=== PATIENT | female | born 1990 | race Caucasian/White ===

== ENCOUNTER 2021-11-18 13:51 | Outpatient (CLI) | payer BC, SELFPAY ==
[2021-11-18 14:13] LABS: Influenza Type A Negative (Negative)
[2021-11-18 14:14] LABS: Influenza Type B Negative (Negative)
== END 2021-11-18 13:52 | disposition home or self-care (01) ==
LOC: LONREF 13:53
PROVIDERS: PCP Family Medicine; Visit Provider Nurse Practitioner Family
DX: R05.9 Cough, unspecified (principal); R50.9 Fever, unspecified; R03.0 Elevated blood-pressure reading, without diagnosis of hypertension
CPT/HCPCS: 87804

== ENCOUNTER 2021-11-18 15:23 | Emergency (ER) | payer BC, SELFPAY ==
[2021-11-18 15:37] VITALS: BP 132/78; PULSE 92; TEMP 36.8; O2SAT 97; BMI 34.6
[2021-11-18 15:45] VITALS: BP 121/79; PULSE 98; O2SAT 98
--- NOTE | 2021-11-18 15:46 | ED.GENADULT ---
HPI - General Adult General Time Seen by Provider: 15:46 Date Seen: 11/18/21 Chief complaint: High Blood Pressure Stated complaint: High BP, 17 wks Time Seen by Provider: 11/18/21 15:28 Source: patient, RN notes reviewed, old records reviewed and other ( Spoke with provider in clinic) Mode of arrival: ambulatory Limitations: no limitations History of Present Illness HPI narrative: patient is a 31-year-old female coming [facility] after being evaluated for cough and finding her blood pressure was elevated and she is currently . Patient is reportedly about 17 weeks with her 3rd . She had preeclampsia with her 1st and has ended up on aspirin during her last as well as this . She has seen her OB Gyne providers. She had COVID in February of 2021 and August of this year. She became ill 3 days ago with nasal congestion but runny nose, headache, cough, low-grade fevers up to 100.3? F, sore throat. She had an episode of vomiting last night and has had some nausea today. No neurologic changes with any of these symptoms. She has had 3- COVID tests at home. She does have exercise-induced asthma and states she did end up using her inhaler with prior COVID illnesses. She has not felt like she has needed it with this illness. She is not aware of any definite ill contacts. She has had no travel. She really wants to know if the baby's heart tones are there. She states the provider in [place] was unable to do this. Patient had a cousin have a stillbirth at 17 weeks. She really has not felt quickening yet. She is had no abnormal vaginal discharge or bleeding. She is having no abdominal pain. Onset (ago): day(s) Related Data Home Medications Medication Instructions Recorded Confirmed PNV no.151-iron 27 mg-folic 800 cap PO 10/29/21 11/18/21 mcg-omega3 260 lq-cvd-ugi-fish capsule ( Multi-DHA (with vitamin K)) albuterol sulfate 90 mcg/actuation 2 inhalation PRN 10/29/21 11/18/21 aerosol inhaler aspirin 81 mg chewable tablet 1 tab PO DAILY 10/29/21 11/18/21 cholecalciferol (vitamin D3) 25 25 mcg PO QDAY 10/29/21 11/18/21 mcg (1,000 unit) capsule fluticasone propionate 50 1 intranasal PRN 10/29/21 11/18/21 mcg/actuation nasal spray,suspension Allergies Allergy/AdvReac Type Severity Reaction Status Date / Time polymyxin B Allergy Severe Swelling Verified 10/29/21 14:00 trimethoprim Allergy Severe Swelling Verified 10/29/21 14:00 Sulfa Antibiotics Allergy Unknown Swelling Uncoded 10/29/21 14:00 Review of Systems Status of ROS: Reports: 10 or more systems reviewed and unremarkable except as noted in History and below [facility] Medical History Anxiety Excessive weight gain during High risk , antepartum History of polycystic ovarian syndrome History of pre-eclampsia in prior , currently History of delivery, currently Infection due to severe acute respiratory syndrome coronavirus 2 (SARS-CoV-2) (02/2020) Surgical History History of colonoscopy History of colposcopy (2018) History of esophagogastroduodenoscopy (EGD) History of knee surgery (2015) History of laser assisted in situ keratomileusis (2008) History of left knee surgery History of third molar tooth extraction (2007) Status post delivery (2015) Family History Aunt Breast cancer Depression Other Kidney disease Prostate cancer Social History Narrative: , works in [employer], 2 kids Exercises 3/week (walk/run) Non-smoker- quiet 2016, hx of 8 years on and off smoking Social drinker (1/week) Smoking Status: Never smoker Exam Const: Vital Signs, click to edit/add: Vital Signs - 24 hr 11/18/21 15:37 11/18/21 15:45 Temperature 98.2 F Pulse Rate [Right Pulse Oximeter] 92 98 Blood Pressure [Le ft Upper Arm] 132/78 121/79 Pulse Oximetry 97 98 Oxygen Delivery Me thod Room Air Room Air Documenting provider has reviewed patient's vital signs: yes Common normals: no apparent distress, average body habitus, oriented x3, no limitations, healthy appearing, alert and well nourished General appearance: cooperative, comfortable and well kempt HENMT: Common normals: normocephalic, head/scalp atraumatic, hearing grossly normal bilaterally and external ears normal Head and scalp: normocephalic and atraumatic External ear: external ears normal Eye: Common normals: PERRL, EOMs intact bilaterally, conjunctivae normal and no scleral icterus Conjunctiva: conjunctiva(e) normal Pupil: PERRL Neck & C-Spine: Common normals: full ROM, no lymphadenopathy, supple, no meningeal signs, no JVD and thyroid normal Thyroid: thyroid normal Resp: Common normals: normal respiratory effort, no retractions, no use of accessory muscles and clear to auscultation bilaterally Auscultation: clear to auscultation bilaterally Cardio: Common normals: no JVD, regular rate, regular rhythm, S1 normal heart sound, S2 normal heart sound, no gallops, no clicks, no murmurs and no rub Rate: regular rate Rhythm: regular rhythm Heart sounds: S1 normal and S2 normal GI: Other: Abdomen is gravid but nontender. No masses palpated. No rebound or guarding anywhere. Extremity: Common normals: normal to inspection, full ROM, normal capillary refill, no joint enlargement, no clubbing, cyanosis or edema, no calf tenderness and no pedal edema Neuro: Common normals: oriented x3 Sensorium/orientation: alert Meningeal signs: no meningeal signs Psych: Appearance: well kempt Course Course Hospital Course: Will monitor patient here on pulse oximetry. She is currently not hypoxic. We have collected a COVID PCR. This is a likely an alternate respiratory virus but will rule out COVID. Her lungs are perfectly clear right now. Her blood pressure was elevated in clinic at 155/115. On arrival here was 132/78, then subsequently 121/79. Her most recent systolic after resting was 111. I have ordered labs including CBC in C reactive protein. Also have placed a comprehensive metabolic panel. She is under 20 weeks thus this could not be preeclampsia but could be chronic hypertension. Patient is already on aspirin. Will talk to OB regarding her. Reevaluation(s) Reevaluation #1: Patient has remained stable, no hypoxia. COVID is negative, labs look reassuring that this is not a significant bacterial infection. Likewise clinically her lungs are clear. I do not believe she needs imaging at this time. We have discussed my sense that this is viral at this point. She has no further questions and is comfortable going home. Did let patient know that I spoke briefly with Dr. Ludwig regarding this situation. She is not concerned about blood pressures at this point but patient should follow. Time: 17:07 Vital Signs Vital signs: Initial Vital Signs Temperature 98.2 F 11/18/21 15:37 Temperature Source Temporal Artery Scan 11/18/21 15:37 Pulse Rate 92 11/18/21 15:37 Blood Pressure 132/78 11/18/21 15:37 Blood Pressure Mean 96 11/18/21 15:37 Blood Pressure Position Supine 11/18/21 15:37 Pulse Oximetry 97 11/18/21 15:37 Oxygen Delivery Method 11/18/21 15:37 Vital Signs Temperature 98.2 F 11/18/21 15:37 Pulse Rate 92 11/18/21 15:37 Blood Pressure 132/78 11/18/21 15:37 Pulse Oximetry 97 11/18/21 15:37 Oxygen Delivery Method 11/18/21 15:37 Temperature 98.2 F 11/18/21 15:37 Pulse Rate 98 11/18/21 15:45 Blood Pressure 121/79 11/18/21 15:45 Pulse Oximetry 98 11/18/21 15:45 Oxygen Delivery Method 11/18/21 15:45 Medical Decision Making Lab Data Lab results reviewed: Yes I reviewed the patient's lab results Labs: Lab Results 11/18/21 11/18/21 11/18/21 Range/Units 15:39 16:14 16:14 WBC 9.91 (4.50-11.00) K/uL RBC 3.82 L (4.00-5.20) m/uL Hgb 11.7 L (12.0-16.0) gm/dL Hct 34.6 (33.0-51.0) % MCV 91 (80-100) fL MCH 31 (26-34) pg MCHC 34 (32-36) gm/dL RDW Coeff of Pool 12.7 (11.5-15.5) % Plt Count 202 (140-440) K/uL Neut % (Auto) 76.7 H (42.0-72.0) % Lymph % (Auto) 14.5 L (20-44) % [place] % (Auto) 7.0 (0.0-11.0) % Eos % (Auto) 1.4 (0.0-7.0) % Baso % (Auto) 0.2 (0.0-3.0) % Neut # (Auto) 7.60 H (1.7-7.0) K/uL Lymph # (Auto) 1.40 (0.90-2.90) K/uL [place] # (Auto) 0.70 (0.00-0.90) K/UL Eos # (Auto) 0.14 (0.00-0.50) K/uL Baso # (Auto) 0.02 (0.00-0.30) K/uL Abs Immat Gran (auto) 0.02 (0.00-0.30) K/uL Sodium 135 (135-149) mmol/L Potassium 3.9 (3.6-5.1) mmol/L Chloride 107 (96-114) mmol/L Carbon Dioxide 21 (20-32) mmol/L BUN 7 (5-24) mg/dL Creatinine 0.4 L (0.5-1.5) mg/dL Estimated Creat Clear 181.69 Estimated GFR 135 ml/min Glucose 97 (60-115) mg/dL Calcium 8.8 (8.4-10.6) mg/dL Total Bilirubin 0.3 (0.1-1.5) mg/dL AST 18 (12-35) U/L ALT 13 (4-35) U/L Alkaline Phosphatase 53 (40-150) U/L C-Reactive Protein 4.5 H (0.5-1.0) mg/dL Total Protein 7.1 (6.0-8.3) g/dL Albumin 3.9 (3.3-5.0) g/dL SARS-CoV-2 (PCR) Negative SARS-CoV-2 (Negative) Critical Care Time Critical Care Time Critical Care Time: No Discharge Plan Discharge Clinical Impression: Elevated blood pressure reading, , Upper respiratory infection, viral Patient Disposition: Home, Self-Care Condition: Stable Instructions: Upper Respiratory Infection (ED) Additional Instructions: recommend reviewing your packet from the community service specialist to see which cough and cold medicines they recommend. If you have further questions regarding what you can use, can contact OB on-call or call the OB clinic tomorrow to get direction from them. Stay hydrated with drinking plenty of fluids. Can use some Tylenol if needed for any discomfort or low-grade fevers. I have written for a Z-Willian to be taken if you feel your respiratory symptoms are worsening, fever pattern is worsening or if you are not improving over the next week. Please be aware that we always recommend you seek re-evaluation if you are worsening or have concerns about your status. At this time it is likely that this is viral and antibiotics will not help. You certainly can try your albuterol inhaler if you feel like you are coughing or wheezing to see if it does help. Do recommend recheck with your OB in 1-2 weeks, make sure you are clinically improving from this respiratory infection. Can monitor blood pressures at home if you still have a cuff to see if they are starting to elevate more. Activity Level: Activity as Tolerated Discharge Diet: Regular Prescriptions: No Action aspirin 81 mg tablet,chewable 1 tab PO DAILY Multi-DHA(with vit K) 27 mg iron-800 mcg-260 mg capsule PO albuterol sulfate 90 mcg/actuation HFA aerosol inhaler 2 inhalation PRN fluticasone propionate 50 mcg/actuation spray,suspension 1 intranasal PRN cholecalciferol (vitamin D3) 25 mcg (1,000 unit) capsule 25 mcg PO QDAY Follow Up/Referrals: Pedro Boudreaux MD [Primary Care Provider] - Stand Alone Forms: [employer] Info Instructions
[2021-11-18 16:21] LABS: Basophils Absolute Auto 0.02 K/uL (0.00-0.30); Basophils Percent Auto 0.2 % (0.0-3.0); Eosinophils Absolute Auto 0.14 K/uL (0.00-0.50); Eosinophils Percent Auto 1.4 % (0.0-7.0); Hematocrit 34.6 % (33.0-51.0); Hemoglobin* 11.7 gm/dL (12.0-16.0); Immature Granulocytes Abs Auto 0.02 K/uL (0.00-0.30); Lymphocytes Percent Auto 14.5 % (20-44); Mean Corpuscular HGB Conc 34 gm/dL (32-36); Mean Corpuscular Hemoglobin 31 pg (26-34); Mean Corpuscular Volume 91 fL (80-100); Neutrophils Percent Auto 76.7 % (42.0-72.0); Platelet Count* 202 K/uL (140-440); RDW Coefficient of Variation % 12.7 % (11.5-15.5); Red Blood Count 3.82 m/uL (4.00-5.20); White Blood Count* 9.91 K/uL (4.50-11.00)
[2021-11-18 16:40] LABS: Albumin* 3.9 g/dL (3.3-5.0); Chloride* 107 mmol/L (96-114); Sodium* 135 mmol/L (135-149)
[2021-11-18 16:41] LABS: Potassium* 3.9 mmol/L (3.6-5.1)
[2021-11-18 16:43] LABS: Alanine Aminotransferase* 13 U/L (4-35); Alkaline Phosphatase* 53 U/L (40-150); Aspartate Amino Transferase* 18 U/L (12-35); Bilirubin Total* 0.3 mg/dL (0.1-1.5); Blood Urea Nitrogen* 7 mg/dL (5-24); Carbon Dioxide* 21 mmol/L (20-32); Creatinine* 0.4 mg/dL (0.5-1.5); Est. Creatinine Clearance* 181.69; Estimated Glomerular Filt Rate 135 ml/min; Total Protein* 7.1 g/dL (6.0-8.3)
[2021-11-18 16:44] LABS: Calcium* 8.8 mg/dL (8.4-10.6); Glucose* 97 mg/dL (60-115)
[2021-11-18 16:45] LABS: Slide Review Reflex No
[2021-11-18 16:46] LABS: C Reactive Protein* 4.5 mg/dL (0.5-1.0)
[2021-11-18 16:52] LABS: SARS PCR* Negative SARS-CoV-2 (Negative)
[2021-11-18 17:17] VITALS: BP 110/73; PULSE 90
== END 2021-11-18 17:19 | disposition home or self-care (01) ==
PROVIDERS: Emergency Provider Family Medicine; PCP Family Medicine
DX: R03.0 Elevated blood-pressure reading, without diagnosis of hypertension (principal); J06.9 Acute upper respiratory infection, unspecified; Z3A.17 17 weeks gestation of pregnancy
CPT/HCPCS: 36415; 80053; 85025; 86140; 87635; 99283; 99284

== ENCOUNTER 2021-12-08 12:21 | Outpatient (CLI) | payer BC, SELFPAY | END 2021-12-08 12:22 | disposition home or self-care (01) | LOC: US 12:21 | PROVIDERS: PCP Family Medicine; Visit Provider Pediatrics Neonatal-Perinatal Medicine | DX: O98.512 Other viral diseases complicating pregnancy, second trimester (principal); U07.1 COVID-19; Z3A.21 21 weeks gestation of pregnancy | CPT/HCPCS: 76811 ==

== ENCOUNTER 2022-01-07 17:54 | Outpatient (CLI) | payer BC, SELFPAY ==
[2022-01-07] VITALS (7 sets, daily range): BP systolic 116; BP diastolic 67; PULSE 70–75; RESP 16; TEMP 36.6; O2SAT 98–100
--- NOTE | 2022-01-07 19:17 | PC.OBNST ---
NST Note NST Note Start: 01/07/22 17:59 Freq: ONCE Status: Active Protocol: Document 01/07/22 19:15 BRIDGET (Rec: 01/07/22 19:16 JRIram [id number]) NST Note 3 Para (# of births) 2 EDC 04/27/22 Gestational Age In Weeks & Days 24 Weeks & 2 Days Patient Presented with Complaint(s) of Vaginal bleeding Reactive No Appropriate for Gestational Age Yes RN Brittanie Reid RN Date 01/07/22 Reactive No Appropriate for Gestational Age Yes CASTRO Tena RNC Date 01/07/22 OB NST charge Yes Complete NST Note via Write Note Yes The provider's electronic signature indicates the NST is reactive/appropriate for gestational age. *Note to provider: If an addendum is required, open the patient's chart and click on the note under the Nurse/Allied Health tab.
== END 2022-01-07 18:55 | disposition home or self-care (01) ==
LOC: OB OUT 17:55 → OB 17:56
PROVIDERS: PCP Family Medicine; Visit Provider Obstetrics & Gynecology
DX: Z34.92 Encounter for supervision of normal pregnancy, unspecified, second trimester (principal); Z3A.24 24 weeks gestation of pregnancy
CPT/HCPCS: 59025; 99213

== ENCOUNTER 2022-01-17 07:40 | Outpatient (CLI) | payer BC, SELFPAY ==
--- NOTE | 2022-01-17 08:15 | CRLHL7_ITS ---
For Patients: As a result of the Cures Act, medical imaging exams and procedure reports are released immediately into your electronic medical record. You may view this report before your referring provider. If you have questions, please contact your health care provider. RIGHT BREAST ULTRASOUND CLINICAL HISTORY: This is a 31-year-old who is 26 weeks with discomfort in RIGHT lateral breast. TECHNIQUE: RIGHT breast ultrasound was performed. COMPARISON FILM: No comparison. FINDINGS: Ultrasound over the RIGHT lateral breast 6-12 o???clock position demonstrates no abnormality. IMPRESSION: Negative RIGHT breast ultrasound. Further management should be based clinically. Recommend start of yearly screening mammography at age 40. ASSESSMENT: BI-RADS Category 2: Benign BI-RADS Category 2: Benign The results and recommendations were discussed with the patient. Joellen Jackson M.D. Diagnostic/Breast Radiologist [email or web address] PT/Dictated by: Joellen Jackson MD @ 01/17/2022 9:42:00 AM (Electronically Signed)
== END 2022-01-17 07:41 | disposition home or self-care (01) ==
LOC: US 07:41
PROVIDERS: PCP Family Medicine; Visit Provider Obstetrics & Gynecology
DX: N64.4 Mastodynia (principal)
CPT/HCPCS: 76642

== ENCOUNTER 2022-02-04 09:30 | Outpatient (CLI) | payer BC, SELFPAY ==
[2022-02-05 20:38] LABS: Rapid Plasma Reagin (RPR) Non Reactive (Non Reactive)
== END 2022-02-04 09:31 | disposition home or self-care (01) ==
PROVIDERS: PCP Family Medicine; Visit Provider Obstetrics & Gynecology
DX: Z34.80 Encounter for supervision of other normal pregnancy, unspecified trimester (principal)
CPT/HCPCS: 86592

== ENCOUNTER 2022-02-17 07:24 | Outpatient (CLI) | payer BC, SELFPAY ==
[2022-02-17 07:49] VITALS: BP 110/64; PULSE 77
--- NOTE | 2022-02-17 08:33 | PC.OBNST ---
NST Note NST Note Start: 02/17/22 07:28 Freq: ONCE Status: Active Protocol: Document 02/17/22 08:28 [facility] (Rec: 02/17/22 08:33 [facility] [id number]) NST Note 3 Para (# of births) 2 EDC 04/27/22 Gestational Age In Weeks & Days 30 Weeks & 1 Days High Risk Factors History of Labor/ Delivery Patient Presented with Complaint(s) of Contractions/cramping,Vaginal bleeding,Nausea and vomiting Other Complaints No vaginal bleeding noted during patient visit to Center. See OB assessment for more information. Reactive Yes Appropriate for Gestational Age Yes CASTRO Morales RN Date 02/17/22 Reactive Yes Appropriate for Gestational Age Yes ASHOK Evans Date 02/17/22 OB NST charge Yes Complete NST Note via Write Note Yes The provider's electronic signature indicates the NST is reactive/appropriate for gestational age. *Note to provider: If an addendum is required, open the patient's chart and click on the note under the Nurse/Allied Health tab.
== END 2022-02-17 08:14 | disposition home or self-care (01) ==
LOC: OB OUT 07:24 → OB 07:25
PROVIDERS: PCP Family Medicine; Visit Provider Obstetrics & Gynecology
DX: Z34.93 Encounter for supervision of normal pregnancy, unspecified, third trimester (principal); Z3A.30 30 weeks gestation of pregnancy
CPT/HCPCS: 59025; 99213

== ENCOUNTER 2022-03-04 09:42 | Outpatient (CLI) | payer BC, SELFPAY ==
--- NOTE | 2022-03-04 10:15 | CRLHL7_ITS ---
For Patients: As a result of the Century Cures Act, medical imaging exams and procedure reports are released immediately into your electronic medical record. You may view this report before your referring provider. If you have questions, please contact your health care provider. INDICATION: Third trimester scan, evaluate growth. SIZE GREATER THAN DATES COMPARISON: 12/08/2021 TECHNIQUE: Real time waddell scale imaging of the fetus was performed. FINDINGS: Sonographic imaging demonstrates a single living intrauterine gestation. Fetus demonstrates a regular cardiac rate of 157 beats per minute. Fetus has a transverse position, head maternal left. The placenta lies anteriorly. Amniotic fluid volume appears normal and there is a single deepest vertical pocket: 7.6 cm. WILFRED 21.9 cm. The estimated weight is 2621gm which lies at the greater than 97th %. On the prior OB ultrasound exam dated 12/08/2021 the estimated weight was at the greater than 97th%. BPD, HC, AC greater than 97th percentile. FL 67th percentile. The HC/AC ratio measures 1.07 range (0.93-1.09). IMPRESSION: Sonographic gestational age 35 weeks 5 days and sonographic due date 04/03/2022. Sonographic age is 24 days ahead of the clinical age. Estimated weight greater than 97th percentile. BPD/HC/AC greater than 97th percentile. Dictated by Francesco Mcnamara MD @ 03/04/2022 11:04:16 AM (Electronically Signed)
== END 2022-03-04 09:43 | disposition home or self-care (01) ==
PROVIDERS: PCP Family Medicine; Visit Provider Physician Assistant
DX: O36.63X0 Maternal care for excessive fetal growth, third trimester, not applicable or unspecified (principal); Z3A.35 35 weeks gestation of pregnancy
CPT/HCPCS: 76816

== ENCOUNTER 2022-03-21 18:00 | Outpatient (CLI) | payer BC, SELFPAY ==
[2022-03-21] VITALS (9 sets, daily range): BP systolic 108–119; BP diastolic 55–66; PULSE 70–81
[2022-03-21] MEDS: diphenhydrAMINE 25 MG CAPSULE PO (19:23)
[2022-03-21 19:27] LABS: Hematocrit 31.2 % (33.0-51.0); Hemoglobin* 10.5 gm/dL (12.0-16.0); Mean Corpuscular HGB Conc 34 gm/dL (32-36); Mean Corpuscular Hemoglobin 30 pg (26-34); Mean Corpuscular Volume 90 fL (80-100); Platelet Count* 192 K/uL (140-440); Red Blood Count 3.47 m/uL (4.00-5.20); White Blood Count* 9.39 K/uL (4.50-11.00)
[2022-03-21 19:40] LABS: Slide Review Reflex No
[2022-03-21 19:48] LABS: Aspartate Amino Transferase* 18 U/L (12-35); Creatinine* 0.4 mg/dL (0.5-1.5); Estimated Glomerular Filt Rate 135 ml/min
[2022-03-21 19:48] LABS: Total Protein Urine 13 mg/dL
[2022-03-21 19:49] LABS: Alanine Aminotransferase* 14 U/L (4-35); Blood Urea Nitrogen* 8 mg/dL (5-24)
[2022-03-21 19:49] LABS: Creatinine Urine 20.6 mg/dL
[2022-03-21] MEDS: METOCLOPRAMIDE 10 MG TABLET PO (21:00)
--- NOTE | 2022-03-21 21:39 | PC.OBNST ---
NST Note NST Note Start: 03/21/22 18:17 Freq: ONCE Status: Active Protocol: Document 03/21/22 21:05 JA (Rec: 03/21/22 21:36 JA [id number]) NST Note 3 Para (# of births) 2 EDC 04/27/22 Gestational Age In Weeks & Days 34 Weeks & 5 Days Patient Presented with Complaint(s) of Headache,Other Other Complaints Pt has hx of severe pre-e, reports elevated BP's at home. Reactive Yes Appropriate for Gestational Age Yes RN Fer Ferguson RN Date 03/21/22 Reactive Yes Appropriate for Gestational Age Yes CASTRO Rojas RN Date 03/21/22 OB NST charge Yes Complete NST Note via Write Note Yes The provider's electronic signature indicates the NST is reactive/appropriate for gestational age. *Note to provider: If an addendum is required, open the patient's chart and click on the note under the Nurse/Allied Health tab.
--- NOTE | 2022-03-22 07:55 | ED.NURSE ---
Called OB to check if patient needed her instamed prescription. Per OB nurse, Josie, Patient declined this medication. Called [facility] and they cancelled prescription.
== END 2022-03-21 21:05 | disposition home or self-care (01) ==
LOC: OB OUT 18:00 → OB 18:16
PROVIDERS: PCP Family Medicine; Visit Provider Obstetrics & Gynecology
DX: O26.893 Other specified pregnancy related conditions, third trimester (principal); R51.9 Headache, unspecified; Z3A.34 34 weeks gestation of pregnancy
CPT/HCPCS: 36415; 59025; 82565; 82570; 84156; 84450; 84460; 84520; 85027; 99213; A9270

== ENCOUNTER 2022-04-01 10:22 | Outpatient (CLI) | payer BC, SELFPAY ==
[2022-04-02 15:47] LABS: Strep B DNA Probe NEGATIVE (Negative)
[2022-04-03 06:46] LABS: Strep B Pen/Amox Allergy No
== END 2022-04-01 10:23 | disposition home or self-care (01) ==
LOC: NFLDREF 10:22
PROVIDERS: PCP Family Medicine; Visit Provider Obstetrics & Gynecology
DX: Z34.93 Encounter for supervision of normal pregnancy, unspecified, third trimester (principal); Z3A.38 38 weeks gestation of pregnancy
CPT/HCPCS: 76816; 87081; 87653

== ENCOUNTER 2022-04-14 18:44 | Inpatient (IN) | payer BC, SELFPAY ==
[2022-04-14] VITALS (12 sets, daily range): BP systolic 122–128; BP diastolic 71–75; PULSE 73–87; RESP 16–18; TEMP 36.5–37.3; O2SAT 100; BMI 39.6
[2022-04-14] MEDS: LACTATED RINGERS 1000 ML 1,000 ML 125 ML IV (18:30)
[2022-04-14] MEDS: OXYTOCIN 30 unit/500 ML in NS 30 UNIT/500 ML BAG IVPB (18:40)
[2022-04-14 18:42] LABS: SARS PCR* Negative SARS-CoV-2 (Negative)
[2022-04-14 19:00] LABS: Basophils Percent Auto 0.1 % (0.0-3.0); Eosinophils Percent Auto 0.5 % (0.0-7.0); Hemoglobin* 11.2 gm/dL (12.0-16.0); Immature Granulocytes Pct Auto 0.3 %; Lymphocytes Percent Auto 18.5 % (20-44); Mean Corpuscular HGB Conc 34 gm/dL (32-36); Mean Corpuscular Hemoglobin 31 pg (26-34); Mean Corpuscular Volume 90 fL (80-100); Monocytes Percent Auto 6.5 % (0.0-11.0); Neutrophils Percent Auto 74.1 % (42.0-72.0); Platelet Count* 222 K/uL (140-440); RDW Coefficient of Variation % 14.4 % (11.5-15.5); Red Blood Count 3.65 m/uL (4.00-5.20); Slide Review Reflex No; White Blood Count* 11.04 K/uL (4.50-11.00)
--- NOTE | 2022-04-14 21:10 | P.LDBA_ITS ---
Subjective History of Present Illness Narrative: Patient is being admitted to Labor and Delivery for VTOLAC. She is a 31 year old at 38 1/7 weeks gestation. Her full history and physical was dictated by Dr. TAYLOR on 04/08/22. Please see this for details. Patient called in this afternoon with concerns of watery like discharge. Upon arrival there was evidence of rupture of membranes with a large amount of clear watery like discharge in a towel that was soaked. Specific Issues/Plans blood type:?O positive Partner: Ish. Sons: Cristian. Flaco (preemie). Baby: [place] gender. [id number] 1. Anxiety/Depression, Severe pp mood depression w/ 2nd * SSRI's in the past without success * 2. Significant alcohol intake until finding out she was 3. COVID + in early * level 2 US:? Normal 4. Hx of Severe Pre-E w/ first * Already taking baby aspirin * Baseline labs collected:? normal 5. Hx of w/ 2nd Baby for arrest of descent, OP presentataion.? 9 lbs 7 oz.? * ?Low transverse hysterotomy incision with 2-layer closure documented, Dr. Oden * Desires * Consent: signed 03/18/22 * Growth US @36 weeks (04/01/22):?EFW 91%,?BPD 93%, HC 87%, AC >97%, FL 49% 6. History of macrosomia, 2nd baby 9 lb 7 oz 7. Size>date 03/04/22: * SDP 7.6 cm. WILFRED 21.9 cm.?EFW >97%, 2621gm 8.? Unremitting QUIROGA on 03/21/22.? Seen on Center.? Normotensive, normal HELLP labs, but elevated protein:creatinine at 0.6.? Treated with Reglan.? 9.? Anemia, with Hb 10.5 on 03/21/22.? Begin ferrous sulfate 325 BID.? OB - H&P: Exam Physical Exam: Vital signs: Temp Pulse Resp BP Pulse Ox 98 F 79 16 122/75 100 04/14/22 20:30 04/14/22 19:24 04/14/22 20:30 04/14/22 19:24 04/14/22 18:16 Narrative: Cervical check as per nursincm/50%/-2 NST:130bpm/positive accelerations/negative decelerations/moderate variability/irregular uterine contractions OB - Problem Based A/P Additional Plan (1) : Status: Acute Plan VTOLAC presents after SROM. Latent phase of labor. 1. Continuos monitoring. 2. Augmentation recommended start low dose oxytocin. 3. GBS negative no need for antibiotic prophylaxis 4. Pain management as needed. 5. Type and screen. 6. AC> 97% would not utilize vacuum in the event of prolonged second stage of labor.
[2022-04-14] MEDS: LACTATED RINGERS 1000 ML 1,000 ML IV (23:36)
[2022-04-14] MEDS: LIDOCAINE 2% (PF) 5 ML VIAL EPIDURAL (23:55)
[2022-04-15] VITALS (55 sets, daily range): BP systolic 101–154; BP diastolic 54–93; PULSE 70–123; RESP 16–20; TEMP 36.4–37.4; O2SAT 97–100
[2022-04-15] MEDS: ROPIVACAINE 0.2 % PF 10 ML INJ 20 MG EPIDURAL (00:01)
[2022-04-15] MEDS: ROPIVACAINE 0.2% 100 ml 100 ML 12 MG EPIDURAL (00:03)
--- NOTE | 2022-04-15 00:08 | PM.ANBPRC ---
[facility] Medical History (Updated 04/04/22 @ 11:53 by Pedro Boudreaux MD) High risk , antepartum History of polycystic ovarian syndrome History of pre-eclampsia in prior , currently History of delivery, currently Infection due to severe acute respiratory syndrome coronavirus 2 (SARS-CoV-2) (02/2020) Vaginal bleeding affecting early Surgical History (Updated 03/18/22 @ 16:34 by Christina Ludwig MD) History of colonoscopy History of colposcopy (2018) History of esophagogastroduodenoscopy (EGD) History of knee surgery (2016) History of laser assisted in situ keratomileusis (2008) History of left knee surgery History of third molar tooth extraction (2007) Status post delivery (2015) Family History Aunt Breast cancer Depression Other Kidney disease Prostate cancer Social History Narrative: , works in [employer] [place], 2 kids Exercises 3/week (walk/run) Non-smoker- quiet 2015, hx of 8 years on and off smoking Social drinker (1/week) Smoking Status: Former smoker Meds Home Medications and Allergies Home Medications Medication Instructions Recorded Confirmed Type PNV no.151-iron 27 mg-folic 800 cap PO 10/29/21 04/08/22 History mcg-omega3 260 ul-fjn-qbl-fish capsule ( Multi-DHA (with vitamin K)) albuterol sulfate 90 mcg/actuation 2 inhalation PRN 10/29/21 04/08/22 History aerosol inhaler cholecalciferol (vitamin D3) 25 25 mcg PO QDAY 10/29/21 04/13/22 History mcg (1,000 unit) capsule acetaminophen 500 mg tablet mg PRN 03/21/22 04/08/22 History Allergies Allergy/AdvReac Type Severity Reaction Status Date / Time polymyxin B Allergy Severe Swelling Verified 04/08/22 09:40 trimethoprim Allergy Severe Swelling Verified 04/08/22 09:40 Sulfa Antibiotics Allergy Unknown Swelling Uncoded 04/08/22 09:40 Results Labs Labs: Laboratory Results - last 24 hr 04/14/22 04/14/22 04/14/22 17:43 18:32 18:32 WBC 11.04 H RBC 3.65 L Hgb 11.2 L Hct 33.0 MCV 90 MCH 31 MCHC 34 RDW Coeff of Pool 14.4 Plt Count 222 Neut % (Auto) 74.1 H Lymph % (Auto) 18.5 L [place] % (Auto) 6.5 Eos % (Auto) 0.5 Baso % (Auto) 0.1 Neut # (Auto) 8.20 H Lymph # (Auto) 2.00 [place] # (Auto) 0.70 Eos # (Auto) 0.10 Baso # (Auto) 0.00 SARS-CoV-2 (PCR) Negative SARS-CoV-2 Blood Type O Positive Antibody Screen NEGATIVE Vital Signs Vital Signs: Last Vital Signs Temp 97.8 F 04/14/22 22:37 Pulse 83 04/15/22 00:06 Resp 16 04/14/22 22:37 BP 127/82 04/15/22 00:06 Pulse Ox 100 04/15/22 00:05 Weight: 107.955 kg Height: 165.1 cm Anesthesia Procedures Epidural Insertion Patient Location: OB Start Time: 23:35 Stop Time: 00:09 Start Date: 04/15/22 Stop Date: 04/15/22 Reason for Block: procedure for pain Patient Position: sitting Performed By: Ganga Coleman Preanesthetic Checklist: IV checked, risks and benefits discussed, surgical consent, monitors and equipment checked, pre-op evaluation, timeout performed and anesthesia consent Prep: chlorhexidine gluconate Monitoring: blood pressure monitoring, continuous pulse oximetry and heart rate Approach: midline Vertebral Space: lumbar (1-5) Epidural Technique: CRISS air Needle Type: Tuohy needle Injection Technique: continuous catheter Needle gauge: 17 Needle Length (cm): 10 cm Needle Insertion Depth (cm): 7 Catheter Gauge: 19 Catheter Type: multi-orifice Catheter at skin depth (cm): 13 Test Dose Result: negative and lidocaine 1.5% with epinephrine 1 to 200,000
[2022-04-15] MEDS: ACETAMINOPHEN 500 MG TABLET 1000 MG PO ×3 (03:03→15:46)
[2022-04-15] MEDS: ONDANSETRON 2 MG/ML inj 4 MG IV (03:59)
[2022-04-15] MEDS: LACTATED RINGERS 1000 ML 1,000 ML IV (04:49)
--- NOTE | 2022-04-15 05:18 | PM.OBPNL ---
Subjective Date Seen: 04/15/22 Narrative: I was called in to assess patient, she had been feeling pushy and started to unvoluntarily push. I had checked her at around midnight and found cervix at 4.5/80/-2 station. Internal monitors placed since we were having significant difficulties monitoring heart rate and contractions. She has now progressed to full dilation and position is seen to be OP. NST showing recurrent variable decelerations at this moment, moderate variability and accelerations present. Objective Exam: Cervix: 10cm/100%/0 station/ROP NST: 140bpm/moderate variability/positive accelerations/recurrent variables for the past 10 minutes since she has started pushing/regular and effective uterine contractions Vital Signs: Last Vital Signs Temp 99 F 04/15/22 04:26 Pulse 96 04/15/22 05:07 Resp 16 04/15/22 04:00 BP 101/55 L 04/15/22 05:07 Pulse Ox 99 04/15/22 00:41 Plan Plan: Continue to try position changes and continue pushing. If variable decelerations persist, become deeper or prolonged will have to proceed with delivery fo that indication.
--- NOTE | 2022-04-15 06:12 | PM.OBPRCVD ---
Procedure Delivery date: 04/15/22 Procedure Done: Global Events: Previous and Labor Augmentation Intrapartal Events: Labor Augmentation Induction method: per pitocin protocol Delivery augmentation: pitocin Delivery monitor: internal FHT and internal uterine Route of delivery: Episiotomy description: None Laceration description: Perineal - 2nd Degree Delivery repair: Vicryl Estimated blood loss (mL): 50 Anesthesia type: Epidural Disposition: floor Complications: None Narrative: The patient is a 31 year-old G 3 P 2103 admitted on 04/14/2022 at 38 Weeks, 2 Days gestation for delivery.? Cervical exam on admission was 3 cm/50 % effaced/-2 station with membranes ruptured in vertex presentation.? Contractions were every 5-7 minutes.? heart rate demonstrated baseline 130 bpm with moderate variability, + accelerations, - decelerations; a category 1 tracing.? SROM occurred at 16 40 on 04/14/2022 with clear fluid. ? Labor Analgesia:? Epidural ? Pitocin:? Yes ? Labor onset:? 1200 ? Complete:? 0449 ? Pushing:? 0457 ? heart tones during second stage were category 2. ? At 0551 a viable female infant delivered in vertex LUIS ALBERTO presentation over intact perineum via spontaneous vaginal delivery.? was placed on maternal abdomen.? Cord was clamped and cut after a 30-60 second delay.? Nose and mouth were bulb suctioned.? Infant weight pending.? 8 at 1 minute and 9 at 5 minutes.? Shoulder dystocia: No.? Nuchal cord: No. ? Placenta delivered spontaneously and complete at 0557 with a 3 vessel cord. ? Mother and were stable after delivery. ? Lacerations:? 2nd degree perineal, repaired with Vicryl 3-0. ? Blood loss: 50 mL. Blood loss measurement type: QBL ? Sponge and needles counts are correct. Infant Gender: Female presentation: vertex Placental Delivery Description: Spontaneous Cord Description: 3 Vessels
[2022-04-15 06:53] LABS: Hematocrit 33.1 % (33.0-51.0); Hemoglobin* 11.2 gm/dL (12.0-16.0); Mean Corpuscular HGB Conc 34 gm/dL (32-36); Mean Corpuscular Hemoglobin 31 pg (26-34); Mean Corpuscular Volume 90 fL (80-100); Platelet Count* 183 K/uL (140-440); Red Blood Count 3.67 m/uL (4.00-5.20); White Blood Count* 15.67 K/uL (4.50-11.00)
[2022-04-15 06:58] LABS: Slide Review Reflex No
[2022-04-15] MEDS: IBUPROFEN 600 MG TABLET PO ×3 (06:58→20:02)
[2022-04-15 07:08] LABS: Alanine Aminotransferase* 15 U/L (4-35); Aspartate Amino Transferase* 22 U/L (12-35); Blood Urea Nitrogen* 8 mg/dL (5-24); Creatinine* 0.5 mg/dL (0.5-1.5); Est. Creatinine Clearance* 145.35; Estimated Glomerular Filt Rate 128 ml/min; INR 1.07 (0.91-1.10); Prothrombin Time 14.5 Seconds
[2022-04-15 07:10] LABS: Fibrinogen* 559 mg/dL (200-450)
[2022-04-15] MEDS: DOCUSATE SODIUM 100 MG CAPSULE PO (09:10)
[2022-04-16 00:09] VITALS: BP 124/81; PULSE 73; RESP 16; O2SAT 97
[2022-04-16] MEDS: IBUPROFEN 600 MG TABLET PO ×2 (02:47→09:00)
[2022-04-16 05:20] VITALS: BP 102/65; PULSE 78; RESP 14; TEMP 36.7; O2SAT 97
[2022-04-16] MEDS: ACETAMINOPHEN 500 MG TABLET 1000 MG PO ×2 (06:02)
[2022-04-16 08:05] VITALS: BP 116/78; PULSE 87; RESP 16; TEMP 36.7; O2SAT 97
[2022-04-16] MEDS: DOCUSATE SODIUM 100 MG CAPSULE PO (09:00)
--- NOTE | 2022-04-16 10:24 | P.DS_ITS ---
DS: Providers Provider Date Seen: 04/16/22 Date of admission: 04/14/22 18:44 Primary care physician: Natalia Jhaveri MD Admitting Clinician: Natalia Jhaveri MD Attending Physician on discharge: Natalia Jhaveri MD Date of Discharge: 04/16/22 DS: Diagnosis Discharge Diagnosis (1) Vaginal after section: Status: Acute (2) Gestational hypertension: Status: Acute Exam Narrative: Exam Narrative: VITAL SIGNS: As noted above. GENERAL APPEARANCE: Alert, cooperative female in no acute distress. MOOD & AFFECT: Normal. ABDOMEN: Soft, non-distended and nontender. Uterus well contracted. : Normal lochia. EXTREMITIES: Bilateral pitting edema +1. Well perfused. Nontender. Const: Vital Signs, click to edit/add: Vital Signs - 24 hr 04/15/22 15:46 04/15/22 20:59 04/15/22 23:36 Temperature 98.1 F 97.6 F Pulse Rate [Pulse Oximeter] 87 70 81 Respiratory Rate 16 16 Blood Pressure [Le ft Arm] 113/67 123/81 Pulse Oximetry 97 97 Oxygen Delivery Me thod Room Air Room Air 04/16/22 00:09 04/16/22 05:20 04/16/22 08:05 Temperature 98.0 F 98.0 F Pulse Rate [Pulse Oximeter] 73 78 87 Respiratory Rate 16 14 16 Blood Pressure [Le ft Arm] 124/81 102/65 116/78 Pulse Oximetry 97 97 97 Oxygen Delivery Me thod Room Air Room Air Room Air OB - DS: Summary Hospital Course Hospital Course: The patient is a 31 year old G 3 P 3003 at 383/7 weeks gestation that was admitted to the Center on 04/14/22 for vaginal trial of labor after section. She had an uncomplicated vaginal delivery. She delivered a viable female . She is breast feeding. the patient has done well. Peripartum Data delivery method: Laceration description: Perineal - 2nd Degree Episiotomy description: None complications: none [place] Gender: Female Status at Discharge Functional status at discharge: independent ambulation Overall status at discharge: patient is progressing back to baseline Time Spent with Patient Time attestation: Total time spent providing and/or coordinating discharge services: Time spent: Less than 30 minutes Discharge Plan Discharge Disposition: Home, Self-Care Date of Admission: 04/14/22 18:44 Attending Provider on Discharge: Natalia Jhaveri Primary Care Provider: Natalia Jhaveri Condition: Stable Anticipated Discharge Date/Time: 04/16/22 10:26 Discharge Medications: New docusate sodium 100 mg Capsule 100 mg PO DAILY Qty: 30 0RF ibuprofen 600 mg Tablet 600 mg PO Q6H PRNQty: 30 0RF Continued Multi-DHA(with vit K) 27 mg iron-800 mcg-260 mg capsule 1 cap PO albuterol sulfate 90 mcg/actuation HFA aerosol inhaler 2 inhalation PRN PRN cholecalciferol (vitamin D3) 25 mcg (1,000 unit) capsule 25 mcg PO QDAY acetaminophen 500 mg tablet 1,000 mg PO Q6H PRN Rx Instructions: NO MORE THAN 4000 MG/DAY fluticasone propionate 50 mcg/actuation spray,suspension 1 spray intranasal BID PRN (Reason: nasal congestion) Qty: 16 6RF Discontinued oseltamivir [Tamiflu] 75 mg capsule 75 mg PO QDAY 10 Days Qty: 10 0RF Rx Instructions: Child with influenza B. oxycodone 5 mg tablet 5 mg PO Q6H Qty: 7 0RF Hold Instructions: Order Change Discharge Orders: Discharge Order (Routine); Ordered 04/16/22 Ordered By: Natalia Jhaveri Patient Education: OB High Blood Pressure DC, OB Vaginal/Breast Feeding Activity Level: Activity as Tolerated Activity Detail: Nothing vaginally for 6 weeks Discharge Diet: Regular Follow Up Appointments: Natalia Jhaveri MD [Primary Care Provider] - Forms: [employer] Info Instructions Discharge Comments: Follow-up in clinic in 1 week for blood pressure check, follow-up in clinic in 6 weeks for a regular visit.
[2022-04-16 10:35] LABS: Hemoglobin* 10.1 gm/dL (12.0-16.0)
[2022-04-16 11:20] VITALS: BP 127/83; PULSE 66; RESP 16; TEMP 36.9; O2SAT 98
== END 2022-04-16 11:37 | disposition home or self-care (01) | DRG 560 ==
LOC: OB OUT 18:45 → OB 04-16 10:26
PROVIDERS: Admitting Provider Obstetrics & Gynecology; PCP Obstetrics & Gynecology; Visit Provider Obstetrics & Gynecology
DX: O34.211 Maternal care for low transverse scar from previous cesarean delivery (principal); O13.4 Gestational [pregnancy-induced] hypertension without significant proteinuria, complicating childbirth; O99.344 Other mental disorders complicating childbirth; F41.8 Other specified anxiety disorders; Z86.16 Personal history of COVID-19; O99.02 Anemia complicating childbirth; D64.9 Anemia, unspecified; Z3A.38 38 weeks gestation of pregnancy; Z37.0 Single live birth
CPT/HCPCS: 01967; 36415; 59025; 82565; 84112; 84450; 84460; 84520; 85018; 85025; 85027; 85384; 85610; 86850; 86900; 86901; 87210; 87635; 99213; A9270; J2405; J2795; J7120

== ENCOUNTER 2022-04-27 09:17 | Outpatient (CLI) | payer BC, SELFPAY ==
--- NOTE | 2022-04-27 16:21 | P.LACCB_ITS ---
Consult Note - Mom Date of Visit Date of visit: 04/27/22 statistical consultant: Colleen Ohara Visit Code: Visit Patient's Information Phone number: [phone] : 3 Para: 3 Allergies polymyxin B Allergy (Severe, Verified 04/26/22 09:43) Swelling trimethoprim Allergy (Severe, Verified 04/26/22 09:43) Swelling Sulfa Antibiotics Allergy (Unknown, Uncoded 04/26/22 09:43) Swelling Mother's Medical History: Medical History (Updated 04/26/22 @ 20:28 by Pedro Boudreaux MD) Alcohol withdrawal syndrome Delivery Information Delivery type: Vaginal Weeks Gestation: 38.2 Gestational Age: AGA Weight: 3.454 kg Discharge Weight: 3.482 kg Baby's Information Baby's Age at Visit: 12 days Baby's Provider or Clinic: Dr. Poole Jaundice: Yes (to abdomen) Reason for Consult Reason for Consult: damaged left nipple, weight check Past Experience Past Experience: Yes (nursed her fist two for a few wks, ended up pumping and bottle feeding EBM) Current Frequency of Day Feedings: every 2 - 3 hours Frequency of Night Feedings: more cluster feeding Both Breasts: Yes Suck: fairly strong Latch: fairly wide Length of Time: 20 - 40 minutes Goals: would really like to be successful nursing this baby Pumping Pumping: Yes (with almost every feeding) Quantity Pumped: 2 - 3 oz total each time Supplementing EMB Supplement: Yes (baby is supplemented with 1 - 2 oz after nursing overnight) Formula Supplement: No Baby Elimination Number of Wet Diapers a Day: 6 - 8 Number of BM a Day: 4 or more; yellow and seedy Breast/Nipple Condition Breast Information: WNL Engorgement: No Sore Nipples: Yes (left side) Interventions for Sore Nipples: Breast Shells (silverettes) Onsite Pre-Feed weight: 3.454 kg Post-Feed weight: 3.482 kg Milk Transferred (mL): 28 Assessments/Interventions Assessments/Interventions: Met with mom and her now 12 day old ex- term AGA baby for consult.? Baby was seen in the hospital after delivery and mom was using the Ball method to latch baby.? She wanted to try something different? as she was unsuccessful nursing her two older children using the more conventional positions. She was having more trouble with her left side using that method as that nipple tends to naturally point a little downward and baby wasn't getting as deep a latch.? Baby was re-admitted on 04/19 for phototherapy and during that stay the left side was more painful, but she had success in latching her in the football hold and was comfortable.? Baby was D/C'd on 04/21 and mom nursed her for a few days at home but her nipple became increasingly more damaged and she finally had to quit d/t the pain.? For about four days she's been nursing on the right side and exclusively pumping on the left. ? Baby nurses every 2 - 3 hours during the day and is usually satisfied with one side.? Overnight she wants to nurse more often and mom also supplements her with about 2 oz EBM after every nursing session.? She tries to pump every time baby eats and gets between 2 - 3 oz total each time.? Breasts WNL- symmetrical with rounded lower quadrants, intramammary distance < 1.5 inches.? Nipples are everted and don't flatten or retract on compression.? There's no damage on the right, but the left is definitely damaged with a purulent exudate covering the surface of the nipple.? Mom reports it looks better than it did a few days ago.? States she thought she was getting mastitis last week so she called a virtual clinic not associated with [facility] and was prescribed doxycycline.? She saw her PCP on 04/26 and he suggested she D/C the doxycycline.? He prescribed ceftriaxone one dose IM and a 10 day course of amoxicillin.? She denies any s/s of mastitis today. Denies any s/s of cee as well as any plugged ducts. Baby has gained 28 grams/day since her last visit on 04/21 and is only 24 grams below BW at DOL 12.? Mom denies a caput/cephalohematoma at delivery.? States baby has equal ROM when turning her head and moving her extremities. Her palate is WNL.? Her upper frenulum is a little tight, but her lower frenulum appears to be WNL.? Her tongue easily extends past the gum line and has good lateral movement.? She has a strong suck on a finger.? No s/s of yeast in baby's mouth/gums.? Baby nursed about 45 minutes on the right side.? She nursed well for about 15 minutes, then came off and had a hard time re-latching until mom was coached to support her breast in the C shape and continue to provide support.? When baby had finished she transferred 28 ml.? Mom then pumped for about 15 minutes with a Spectra using the 24 mm flanges and got 3 oz total (states pumping is a little uncomfortable, but not painful).? Baby took 1 oz of the EBM and was satisfied.? Plan: 1. Continue to nurse ALD on the right side.? Suggested she support the breast like she did in clinic as this seemed to help baby maintain her latch.? Could also try compression while nursing as this may help baby take a little more. 2. Continue to pump with every feeding if possible for 15 - 20 minutes. 3. Continue to supplement baby after nursing sessions when she doesn't seem satisfied. 4. As there are no s/s of mastitis but the nipple is slow to heal will use the standing order to order Lotrisone cream.? We considered APNO ointment, but she would have to get it from a compounding pharmacy in [place] and with the weather mom didn't want to do too much driving. 5. Baby has f/u on 04/29 and I will f/u with mom by phone on that day as well. Meds Home Medications and Allergies Home Medications Medication Instructions Recorded Confirmed Type PNV no.151-iron 27 mg-folic 800 1 cap PO 10/29/21 04/26/22 History mcg-omega3 260 eh-mal-mpj-fish capsule ( Multi-DHA (with vitamin K)) albuterol sulfate 90 mcg/actuation 2 inhalation PRN PRN 10/29/21 04/26/22 History aerosol inhaler acetaminophen 500 mg tablet 1,000 mg PO Q6H PRN 03/21/22 04/26/22 History Allergies Allergy/AdvReac Type Severity Reaction Status Date / Time polymyxin B Allergy Severe Swelling Verified 04/26/22 09:43 trimethoprim Allergy Severe Swelling Verified 04/26/22 09:43 Sulfa Antibiotics Allergy Unknown Swelling Uncoded 04/26/22 09:43
== END 2022-04-27 09:18 | disposition home or self-care (01) ==
LOC: OB LAC 09:18
PROVIDERS: PCP Family Medicine; Visit Provider Obstetrics & Gynecology
DX: Z39.1 Encounter for care and examination of lactating mother (principal)
CPT/HCPCS: 99211

== ENCOUNTER 2022-08-04 15:20 | Outpatient (CLI) | payer BC, SELFPAY ==
--- NOTE | 2022-08-04 15:30 | MR_ITS ---
[address] [address] Phone:?[phone] Fax:?[phone] Referring Physician Information: Estrella Hernandez [address] [facility] [address] Phone:?[phone] Fax:?[phone] Patient:Melia Moss D.O.B:?1990 Sex:?Female Phone:?[phone] [facility] MRN:?[id number] Exam Date:?08/04/2022 ? EXAM: MRI of the RIGHT KNEE, without contrast CLINICAL: Female, 32 years old, with lateral right knee pain. INDICATION: Evaluate for lateral meniscus tear. PRIOR SURGERY: None reported. PLAIN FILMS: None available. COMPARISONS: No prior MRIs available. TECHNICAL: Using a 1.5 Nanda MR scanner and a localizing surface coil: 3.0 mm?sagittals: PD, PDFS 3.0 mm?coronals: PD, STIR 3.0 mm?axials: PD, T2FS SEDATION: None. CONTRAST: None. IMPRESSION: 1. 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 2. Soft tissue edema of superolateral infrapatellar Hoffa's fat-pad inferior to the lateral patella which is perhaps associated with the above-mentioned chondromalacia, but also in keeping with fat pad impingement and/or patellar tendon-lateral femoral condyle friction syndrome, often associated with patella kamala and/or patella maltracking. Correlate as to whether symptoms are referable to this finding and location. 3. Patellofemoral morphology with potential to predispose to patellofemoral maltracking including: - Borderline patella kamala and low normal patellotrochlear overlap/index. - Borderline trochlear dysplasia. - High normal TT-TG distance. - Normal trochlear inclination angle. 4. Otherwise unremarkable right knee MRI. 5. No lateral or medial meniscus tears. 6. No cruciate or collateral ligament injuries. 7. No other osteochondral abnormalities. 8. No pathologic knee effusion. FINDINGS: Knee joint: Effusion: Very small right knee effusion. Popliteal cyst: None. Loose bodies: None. Subcutaneous and extra-articular soft tissues: Unremarkable. Ligaments: ACL: Intact ACL anteromedial and posterolateral bundles, without sprain or tear. PCL: Intact PCL, without acute or chronic injury. MCL: Intact MCL superficial and deep layers, without injury. FCL: Intact FCL, without injury. Posterolateral corner: No posterolateral corner soft tissue injury. Popliteus, biceps femoris, iliotibial band, popliteofibular ligament and lateral gastrocnemius are intact. Posteromedial corner: No posteromedial corner soft tissue injury. Semimembranosus, pes anserine tendons and posterior oblique ligament are without injury, tendinopathy or bursitis. Extensor mechanism: Patellar tendon: Intact, without tendinopathy. Quadriceps tendon: Intact, without tendinopathy. Retinacula: Medial and lateral retinacula are intact. Fat pads: Infrapatellar: Mild ill-defined edema of superolateral infrapatellar Hoffa's fat-pad inferior to the lateral patella may merely be associated with the adjacent patellar chondromalacia, although also is a finding which can represent fat pad impingement and/or patellar tendon-lateral femoral condyle friction syndrome, most commonly associated with patella kamala and/or patella maltracking (sagittal PDFS series 6, images 14-10; axial PDFS series 4, images 15 & 16; coronal STIR series 8, image 7). Prefemoral: Normal. Quadriceps: Normal. Insall-Salvati index (CHUY): 1.10 (normal 1.0 +/- 0.2; abnormal > 1.2). Ba-Celestina index (CDI): 1.08 (normal 1.0 +/- 0.2: abnormal > 1.2). Patellotrochlear index (PTI): 0.28 (range 0.18 - 0.80). Wiberg patellar type: Type II TT-TG distance (mm): 13.5 (normal < 15, borderline abnormal 15-20, Abnormal > 20). Trochlear sulcus angle: 137? (normal <= 144?) Trochlear inclination angle: 17? (normal >= 11?) Medial compartment: Medial meniscus: No articular surface, meniscosynovial junction or root tear. No displacement, extrusion or parameniscal cyst. Medial femoral condyle: No chondromalacia or osteochondral abnormality. Medial tibial plateau: No chondromalacia or osteochondral abnormality. Lateral compartment: Lateral meniscus: No articular surface, meniscosynovial junction or root tear. No displacement, extrusion or parameniscal cyst. Lateral femoral condyle: No chondromalacia or osteochondral abnormality. Lateral tibial plateau: No chondromalacia or osteochondral abnormality. Patellofemoral joint: Patella: Approximately 20 x 15 mm chondromalacia including grade II-III fissuring/fibrillation of median ridge and adjacent lateral greater than medial patellar facets is not associated with subjacent reactive marrow edema at this time (axial images 9-13). Trochlea: No chondromalacia or osteochondral abnormality. Proximal tibiofibular joint: Unremarkable, without evidence of ligament sprain injury, joint effusion or adjacent marrow edema. Bones: No stress/occult fractures or other marrow edema/pathology. Neurovascular: Popliteal artery: No demonstrable popliteal artery entrapment or predisposing gastrocnemius variant. No aneurysm or pseudoaneurysm. Popliteal vein: No fusiform or saccular venous aneurysm. Anterior tibial artery: Anatomic variation of the anterior tibial artery includes aberrant high origin above the level of the popliteus, then coursing anteriorly and distally deep to the popliteus muscle belly, interposed between the popliteus muscle and the posterior margin of the tibia and knee. This anatomic variant and resultant proximity of the anterior tibial artery to the posterior knee joint has the potential to predispose the artery to injury with some orthopedic or arthroscopic procedures. Consider this anatomic variant if knee surgery is contemplated. Tibial nerve: No entrapment or distal edema/swelling at the soleal sling. Popliteal nerve: No intrinsic or extrinsic mass or edema/swelling. Common peroneal nerve: Normal to fibular head and neck level included. F Electronically signed on 08/05/2022 1:48:00 PM by Gino Hart M.D.
== END 2022-08-04 15:21 | disposition home or self-care (01) ==
LOC: MRI 15:20
PROVIDERS: PCP Family Medicine; Visit Provider Physician Assistant Surgical
DX: M25.561 Pain in right knee (principal); M22.41 Chondromalacia patellae, right knee
CPT/HCPCS: 73721

== ENCOUNTER 2022-11-14 03:57 | Emergency (ER) | payer BC, SELFPAY ==
[2022-11-14 04:02] VITALS: BP 147/83; PULSE 89; RESP 18; TEMP 36.7; O2SAT 99; BMI 33.3
[2022-11-14] MEDS: hydrOXYzine pamoate 25 MG CAPSULE 50 MG PO (04:42)
[2022-11-14 04:47] VITALS: BP 135/84; PULSE 85; RESP 18; TEMP 36.7; O2SAT 99
--- NOTE | 2022-11-14 04:48 | ED.GENADULT ---
HPI - General Adult General Chief complaint: Anxiety Stated complaint: Anxiety Time Seen by Provider: 11/14/22 04:06 Source: patient Mode of arrival: ambulatory Limitations: no limitations History of Present Illness HPI narrative: 32-year-old female 7 months presents the emergency department with feeling of anxiety. She reports that her anxiety is an ongoing problem. She tells me that she has not had good success with multiple different SSRIs in the past and is not interested in therapy. She reports that she had her 1st visit with Dr. Womack a few weeks ago, he prescribed lorazepam for anxiety. She reports that she has been using this up to twice daily with good results. She ran out 2 days ago and has been feeling more anxious since and would like a refill. She sent him a my chart message over the weekend but of course he would not have received this as he was out of the office for the weekend. In his clinic note from 10/21, he addresses that she has a history of anxiety, he had recommended exercise. I cannot follow where and when she was started on the lorazepam. It is clear that she was given a fill of this on the though her visit was on the . She has gone through 20 tablets in 18 days. She denies having been prescribed that medication before but is finding it very helpful. She reports that she drinks alcohol about once a week on average, typically 2 drinks per sitting. She is . She denies feelings of arrhythmia or palpitations. No psychosis or suicidal thoughts. She was hoping for an earlier refill so that she could continue with her daily and life routine. Past medical history notable for PCOS, anxiety. Clinic note from 10/21 reviewed. Medications reviewed, history with recent lorazepam prescription reviewed as well. ROS notable for the anxiety as described above, otherwise denies times 12 systems. Related Data Home Medications Medication Instructions Recorded Confirmed acetaminophen 500 mg tablet 1,000 mg PO Q6H PRN 03/21/22 11/14/22 Previous Rx's Medication Instructions Recorded ibuprofen 600 mg tablet 600 mg PO Q6H PRN #30 tabs 04/16/22 fluticasone propionate 50 1 spray intranasal BID PRN nasal 09/02/22 mcg/actuation nasal congestion #16 grams spray,suspension lorazepam 0.5 mg tablet 0.5 mg PO BID PRN anxiety #20 tabs 10/24/22 albuterol sulfate 90 mcg/actuation 2 puff inhalation Q4-6H PRN 11/02/22 aerosol inhaler shortness of breath or wheezing #8.5 grams hydroxyzine HCl 25 mg tablet 25 mg PO TID PRN anxiety #20 tabs 11/14/22 Allergies Allergy/AdvReac Type Severity Reaction Status Date / Time polymyxin B Allergy Severe Swelling Verified 10/21/22 09:38 trimethoprim Allergy Severe Swelling Verified 10/21/22 09:38 Sulfa (Sulfonamide Allergy Mild Swelling Verified 11/14/22 04:05 Antibiotics) PFSH PFS Medical History Gestational hypertension ?O13.9 - Gestational [-induced] hypertension without significant proteinuria, unspecified trimester (ICD-10) Erosive gastritis ?K29.60 - Other gastritis without bleeding (ICD-10) Alcohol withdrawal syndrome ?F10.239 - Alcohol dependence with withdrawal, unspecified (ICD-10) Surgical History Status post delivery (2015) ?Z98.891 - History of uterine scar from previous surgery (ICD-10) History of left knee surgery ?Z98.890 - Other specified postprocedural states (ICD-10) History of laser assisted in situ keratomileusis (2008) ?Z98.890 - Other specified postprocedural states (ICD-10) History of knee surgery (2015) ?Z98.890 - Other specified postprocedural states (ICD-10) History of colposcopy (2018) ?Z98.890 - Other specified postprocedural states (ICD-10) History of colonoscopy ?Z98.890 - Other specified postprocedural states (ICD-10) Family History Aunt Breast cancer Depression Other Kidney disease Prostate cancer Social History Narrative: , works in [employer] [place], 2 kids Exercises 3/week (walk/run) Non-smoker- quiet 2016, hx of 8 years on and off smoking Social drinker (1/week) What is your current living situation?: I presently have a place to live Problems where you live: no known problems In the past 12 months, utilities in danger of being shut off: no In the past 12 mos, have been you worried that your food would run out before you had money to buy more?: sometimes true In the past 12 mos, the food you bought just didn't last and you didn't have money to buy more?: declined to answer Physical activity type: none Smoking Status: Never smoker How often do you have a drink containing alcohol: never How often do you have six or more drinks on one occasion: Never AUDIT-C Alcohol total score: 0 Non-prescribed substance use: denies use Are you now , , , , never or living with a partner: Social isolation score (0-1 are the most socially isolated patients): 1 How often does anyone, including family, friends and others, physically hurt you: never How often does anyone, including family, friends and others, insult or talk down to you: never How often does anyone, including family, friends and others, threaten you with harm: never How often does anyone, including family, friends and others, scream or curse at you: never Little interest or pleasure in doing things: not at all Feeling down, depressed, or hopeless: not at all Gender Identity: female Are you currently sexually active: Yes Exam Const: Vital Signs, click to edit/add: Vital Signs - 24 hr 11/14/22 04:02 11/14/22 04:47 11/14/22 04:49 Temperature 98.0 F 98.0 F 98.0 F Pulse Rate [Right Pulse Oximeter] 89 85 85 Respiratory Rate 18 18 18 Blood Pressure [Ri ght Upper Arm] 147/83 H 135/84 135/84 Pulse Oximetry 99 99 Oxygen Delivery Me thod Room Air Room Air Documenting provider has reviewed patient's vital signs: yes Common normals: no apparent distress Exam limitations: no altered mental status and no physical limitations General appearance: cooperative and well kempt Other: Appears mildly anxious but excellent historian. Good insight. Thought process is logical and well-organized. HENMT: Common normals: normocephalic Head and scalp: normocephalic Mouth: oral and palatal mucosa normal Resp: Common normals: normal respiratory effort, no use of accessory muscles and clear to auscultation bilaterally Effort & inspection: able to speak in complete sentences Auscultation: clear to auscultation bilaterally Cardio: Common normals: regular rate, regular rhythm, S1 normal heart sound, S2 normal heart sound and no murmurs Rate: regular rate Rhythm: regular rhythm Heart sounds: S1 normal and S2 normal Neuro: Speech: speech normal Gait (neuro): normal gait Motor exam: strength 5/5 throughout, no tremor noted and no movement abnormalities noted Psych: Appearance: well kempt Attitude: engaged Other: Mildly anxious but certainly no psychosis. Thoughts are well organized, she is very reasonable. Skin: Common normals: no rashes or lesions noted General skin exam: no rashes or lesions noted Course Course Hospital Course: Counseled patient that we do not typically refill controlled substances in the emergency department and I am not certain that this is a good long-term choice for her since she has been going through the medications so quickly. I think she could benefit from a better long-term solution. I am not comfortable prescribing this much regular use of lorazepam especially with breast-feeding. Discussed that there are safer alternatives if she is insisting on an as-needed medication and have given her a single dose of Vistaril and a prescription for temporary use of this until she can work out a better long-term plan with her primary care provider. Discussed my rationale regarding the lorazepam and how it is intended for as needed and not daily use. She verbalizes understanding and agreement. Prescription for Vistaril sent pharmacy. Stressed that it is important that she touch base with her primary care provider for a better long-term plan and she verbalizes understanding and agreement. Alarm symptoms that would warrant ED presentation were reviewed. Vital Signs Vital signs: Initial Vital Signs Respiratory Effort Normal, Spontaneous, Non-Labored 11/14/22 03:58 Respiratory Depth Normal 11/14/22 03:58 Respiratory Pattern Normal 11/14/22 03:58 Vital Signs Temperature 98.0 F 11/14/22 04:02 Pulse Rate 89 11/14/22 04:02 Respiratory Rate 18 11/14/22 04:02 Blood Pressure 147/83 H 11/14/22 04:02 Pulse Oximetry 99 11/14/22 04:02 Oxygen Delivery Method Room Air 11/14/22 04:02 Temperature 98.0 F 11/14/22 04:49 Pulse Rate 85 11/14/22 04:49 Respiratory Rate 18 11/14/22 04:49 Blood Pressure 135/84 11/14/22 04:49 Pulse Oximetry 99 11/14/22 04:47 Oxygen Delivery Method Room Air 11/14/22 04:47 Discharge Plan Discharge Clinical Impression: Anxiety Patient Disposition: Home, Self-Care Condition: Stable Instructions: Anxiety (ED) Additional Instructions: As we discussed, there are no signs of medical emergency going on today which is great news. I am sorry that your struggling so much with this ongoing anxiety. I am not comfortable giving you additional prescriptions for lorazepam as you have gone through the medicine quite quickly and I do not think that this is therefore a good long-term choice for you. This medicine is not ideal when and is meant to be taken episodically or used in combination with other medications and or therapy if it is needed more regularly. If your primary care doctor decides that it is right for you long-term, he must issue a long-term prescription for it. Instead, I have offered hydroxyzine, also known as Vistaril. This is a different class of antianxiety medication that is used as needed. It is safe for daily use and the main side effect is fatigue. It may be used up to 3 times daily for severe panic. This may be a safer long-term option for you. Please let your primary care doctor know how a trial of this medication goes. As we discussed, it may decrease her milk supply very slightly but is considered safe for in breast-feeding than lorazepam. You need to touch base with her primary care doctor as soon as possible regarding a long-term plan for your anxiety. You may return to full unrestricted work duties. Activity Level: No Restrictions Discharge Diet: Regular Prescriptions: New hydroxyzine HCl 25 mg tablet 25 mg PO TID PRN (Reason: anxiety) Qty: 20 1RF No Action ibuprofen 600 mg Tablet 600 mg PO Q6H PRNQty: 30 0RF acetaminophen 500 mg tablet 1,000 mg PO Q6H PRN Rx Instructions: NO MORE THAN 4000 MG/DAY fluticasone propionate 50 mcg/actuation spray,suspension 1 spray intranasal BID PRN (Reason: nasal congestion) Qty: 16 6RF lorazepam 0.5 mg tablet 0.5 mg PO BID PRN (Reason: anxiety) Qty: 20 0RF albuterol sulfate 90 mcg/actuation HFA aerosol inhaler 2 puff inhalation Q4-6H PRN (Reason: shortness of breath or wheezing) Qty: 8.5 3RF Follow Up/Referrals: Pedro Boudreaux MD [Primary Care Provider] - Stand Alone Forms: TRADE TO REBATE Info Instructions
[2022-11-14 04:49] VITALS: BP 135/84; PULSE 85; RESP 18; TEMP 36.7
== END 2022-11-14 04:49 | disposition home or self-care (01) ==
LOC: ED 04:42
PROVIDERS: Emergency Provider Family Medicine; PCP Family Medicine
DX: F41.9 Anxiety disorder, unspecified (principal)
CPT/HCPCS: 99283; A9270

== ENCOUNTER 2023-01-06 15:51 | Emergency (ER) | payer BC, SELFPAY ==
[2023-01-06] VITALS (12 sets, daily range): BP systolic 116–147; BP diastolic 86–89; PULSE 56–75; RESP 16; TEMP 35.8; O2SAT 88–99; BMI 32.9
--- NOTE | 2023-01-06 16:20 | ED_ITS ---
HPI - Abdominal Pain General Time Seen by Provider: 16:20 Date Seen: 01/06/23 Chief Complaint: Abdominal Pain Stated Complaint: Abdominal pain-nausea, headache Time Seen by Provider: 01/06/23 16:03 Source: patient and RN notes reviewed Mode of arrival: ambulatory Limitations: no limitations History of Present Illness HPI narrative: This 32-year-old female is coming in with nausea vomiting and diarrhea with abdominal bloating and discomfort. She was referred from urgent care. She started not feeling well Monday. She worries as her son jumped on her belly that day. That night she started having some discomfort come did not sleep well. She started with vomiting and then proceeded to have diarrhea. She last vomited maybe this morning, did have diarrhea at Urgent Care today. There is no blood in anything. No fevers or chills. She has had some coffee today and a little bit to eat but really not much intake. She urinated with the diarrhea in Urgent Care reportedly. She has had a before, that is her only abdominal surgery. No travel, no history of C difficile colitis. She is not aware of any ill contacts. Patient states there is no chance for at this point. MD elicited complaint: abdominal pain Related Data Patient : No Home Medications Medication Instructions Recorded Confirmed acetaminophen 500 mg tablet 1,000 mg PO Q6H PRN 03/21/22 01/06/23 metformin 500 mg tablet 1,000 mg PO BID 01/06/23 01/06/23 Previous Rx's Medication Instructions Recorded ibuprofen 600 mg tablet 600 mg PO Q6H PRN #30 tabs 04/16/22 fluticasone propionate 50 1 spray intranasal BID PRN nasal 09/02/22 mcg/actuation nasal congestion #16 grams spray,suspension albuterol sulfate 90 mcg/actuation 2 puff inhalation Q4-6H PRN 11/02/22 aerosol inhaler shortness of breath or wheezing #8.5 grams hydroxyzine HCl 25 mg tablet 25 mg PO TID PRN anxiety #20 tabs 11/14/22 paroxetine HCl 20 mg tablet See Rx Instructions PO .ud #30 tabs 11/14/22 lorazepam 0.5 mg tablet 0.5 mg PO BID PRN anxiety #20 tabs 01/03/23 Allergies Allergy/AdvReac Type Severity Reaction Status Date / Time polymyxin B Allergy Severe Swelling Verified 01/06/23 17:55 trimethoprim Allergy Severe Swelling Verified 01/06/23 17:55 Sulfa (Sulfonamide Allergy Mild Swelling Verified 01/06/23 17:55 Antibiotics) Review of Systems Status of ROS Reports: 6 or more systems reviewed and unremarkable except as noted in History and below [facility] Medical History Gestational hypertension ?O13.9 - Gestational [-induced] hypertension without significant proteinuria, unspecified trimester (ICD-10) Erosive gastritis ?K29.60 - Other gastritis without bleeding (ICD-10) Alcohol withdrawal syndrome ?F10.239 - Alcohol dependence with withdrawal, unspecified (ICD-10) Surgical History Status post delivery (2015) ?Z98.891 - History of uterine scar from previous surgery (ICD-10) History of left knee surgery ?Z98.890 - Other specified postprocedural states (ICD-10) History of laser assisted in situ keratomileusis (2008) ?Z98.890 - Other specified postprocedural states (ICD-10) History of knee surgery (2016) ?Z98.890 - Other specified postprocedural states (ICD-10) History of colposcopy (2018) ?Z98.890 - Other specified postprocedural states (ICD-10) History of colonoscopy ?Z98.890 - Other specified postprocedural states (ICD-10) Family History Aunt Breast cancer Depression Other Kidney disease Prostate cancer Social History Narrative: , works in [employer] [place], 2 kids Exercises 3/week (walk/run) Non-smoker- quiet 2016, hx of 8 years on and off smoking Social drinker (1/week) What is your current living situation?: I presently have a place to live Problems where you live: no known problems In the past 12 months, utilities in danger of being shut off: no In past 12 months, lack of transportation kept you from medical appts, meetings, work, or getting things needed for daily living: no In the past 12 mos, have been you worried that your food would run out before you had money to buy more?: sometimes true In the past 12 mos, the food you bought just didn't last and you didn't have money to buy more?: declined to answer Physical activity type: none Smoking Status: Former smoker Do you use any of these nicotine containing products: None Second hand tobacco smoke exposure: No How often do you have a drink containing alcohol: 2-3 times a week How often do you have six or more drinks on one occasion: Never AUDIT-C Alcohol total score: 3 Non-prescribed substance use: denies use Are you now , , , , never or living with a partner: Social isolation score (0-1 are the most socially isolated patients): 1 How often does anyone, including family, friends and others, physically hurt you : never How often does anyone, including family, friends and others, insult or talk down to you: never How often does anyone, including family, friends and others, threaten you with harm: never How often does anyone, including family, friends and others, scream or curse at you: never Little interest or pleasure in doing things: not at all Feeling down, depressed, or hopeless: not at all Gender Identity: female Are you currently sexually active: Yes Exam Const: Vital Signs, click to edit/add: Vital Signs - 24 hr 01/06/23 15:57 01/06/23 16:27 01/06/23 17:34 Temperature 96.5 F L Pulse Rate 62 Pulse Rate [Pulse Oximeter] 60 Respiratory Rate 16 Blood Pressure Blood Pressure [Ri ght Upper Arm] 116/86 Pulse Oximetry 99 99 99 Oxygen Delivery Me thod Room Air Room Air 01/06/23 17:35 01/06/23 17:45 01/06/23 18:00 Temperature Pulse Rate 56 L 63 69 Pulse Rate [Pulse Oximeter] Respiratory Rate Blood Pressure 147/87 H Blood Pressure [Ri ght Upper Arm] Pulse Oximetry 98 98 90 Oxygen Delivery Me thod 01/06/23 18:03 01/06/23 18:10 01/06/23 18:15 Temperature Pulse Rate 75 67 Pulse Rate [Pulse Oximeter] Respiratory Rate Blood Pressure 123/89 Blood Pressure [Ri ght Upper Arm] Pulse Oximetry 97 98 88 Oxygen Delivery Me thod 01/06/23 18:30 01/06/23 18:31 01/06/23 18:45 Temperature Pulse Rate 57 L 61 70 Pulse Rate [Pulse Oximeter] Respiratory Rate Blood Pressure 122/88 Blood Pressure [Ri ght Upper Arm] Pulse Oximetry 98 98 98 Oxygen Delivery Me thod This 32-year-old female is alert interactive no apparent distress sitting up on the edge of the exam bed. Sclera clear, conjugate gaze. Oropharynx with a hydrated mucosa, appears to have geographic tongue. No exudates noted, speech is normal. Neck is supple, no masses. Lungs are clear, good air entry without any wheezing or crackles, not tachypneic. CV regular rate and rhythm, no murmur, normal S1 and S2. Abdomen does appear to be bloated/distended, patient has her pants on zipped. She has hyperactive bowel sounds but not necessarily rashes. She has some mild diffuse tenderness throughout but I would not say th at there is any rebound or guarding. Skin visualized without rash. Documenting provider has reviewed patient's vital signs: yes Course Course ED Course: Reviewed with Madi that I do think we need to proceed with imaging. Discussed abdominal imaging versus CT imaging. I would favor doing CT imaging at this point. She does agree. We will get labs, will have an IV in place. She will get L of IV fluids, 4 mg IV Zofran. She will let me know if she needs anything for pain or discomfort. I do think ileus or partial small-bowel obstruction or possible etiologies. This could be enteritis/colitis/gastroenteritis as well with more prominent course. We will see where her labs are. Reevaluation(s) Time of Reevaluation #1: 17:27 Reevaluation #1: Patient reported to still feeling some nausea despite IV dose of Zofran. Will give her 2nd IV dose for a total of 8 mg loading dose. If this does not help her with the 2nd 4 mg IV dose, will consider moving to other antiemetics. Awaiting labs and CT. Time of Reevaluation #2: 19:03 Reevaluation #2: Went to review patient's abdominal CT with her. There is no evidence of any acute intra-abdominal pathology but they do see an incompletely characterize possibly 2 cm right middle lobe, it is recommended she have a dedicated chest CT. Reviewed her normal labs. Unfortunately the 2 cm right middle lobe nodule for her means cancer in her mine. I have tried to reassure her that it can be many other things and it has not been completely differentiated by a dedicated CT, the CT did not even see all of the area. She was very distraught crying, truly almost inconsolable. I do not feel that I can leave her to try to follow this up outpatient now. I will be doing a chest CT for her now. Time of Reevaluation #3: 21:59 Reevaluation #3: Have given patient a copy of her CT report in did briefly review flexures criteria. She does have a smoking history but from my brief review, no other exposures. She should consider having a CT done within 3-6 months, follow up with her primary to get this set up. We did review that my brief look at the Fleischner is criteria was to be used in patients over 35. I admittedly am not familiar enough with this literature to know whether not that is strictly adhered to. Nonetheless, would just recommend follow-up CT in 3-6 months then if stable, further discussion at that time as to if there should be further follow-up, she can discuss this with her primary. Vital Signs Vital signs: Initial Vital Signs Temperature 96.5 F L 01/06/23 15:57 Temperature Source Temporal Artery Scan 01/06/23 15:57 Pulse Rate 60 01/06/23 15:57 Respiratory Rate 16 01/06/23 15:57 Blood Pressure 116/86 01/06/23 15:57 Blood Pressure Mean 96 01/06/23 15:57 Blood Pressure Position Supine 01/06/23 15:57 Pulse Oximetry 99 01/06/23 15:57 Oxygen Delivery Method Room Air 01/06/23 15:57 Vital Signs Temperature 96.5 F L 01/06/23 15:57 Pulse Rate 60 01/06/23 15:57 Respiratory Rate 16 01/06/23 15:57 Blood Pressure 116/86 01/06/23 15:57 Pulse Oximetry 99 01/06/23 15:57 Oxygen Delivery Method Room Air 01/06/23 15:57 Temperature 96.5 F L 01/06/23 15:57 Pulse Rate 70 01/06/23 18:45 Respiratory Rate 16 01/06/23 15:57 Blood Pressure 122/88 01/06/23 18:31 Pulse Oximetry 98 01/06/23 18:45 Oxygen Delivery Method Room Air 01/06/23 17:34 MDM - Abdominal Pain Lab Data Attestation: I reviewed the patient's lab results. Labs: Lab Results 01/06/23 Range/Units 16:45 WBC 7.85 (4.50-11.00) K/uL RBC 4.26 (4.00-5.20) m/uL Hgb 13.0 (12.0-16.0) gm/dL Hct 40.0 (33.0-51.0) % MCV 94 (80-100) fL MCH 31 (26-34) pg MCHC 33 (32-36) gm/dL RDW Coeff of Pool 12.3 (11.5-15.5) % Plt Count 246 (140-440) K/uL Neut % (Auto) 60.1 (42.0-72.0) % Lymph % (Auto) 29.3 (20-44) % [place] % (Auto) 7.1 (0.0-11.0) % Eos % (Auto) 2.9 (0.0-7.0) % Baso % (Auto) 0.5 (0.0-3.0) % Neut # (Auto) 4.71 (1.7-7.0) K/uL Lymph # (Auto) 2.30 (0.90-2.90) K/uL [place] # (Auto) 0.60 (0.00-0.90) K/UL Eos # (Auto) 0.23 (0.00-0.50) K/uL Baso # (Auto) 0.04 (0.00-0.30) K/uL Abs Immat Gran (auto) 0.01 (0.00-0.30) K/uL Imm/Tot Granulo (auto) 0.1 % Sodium 140 (135-149) mmol/L Potassium 4.3 (3.6-5.1) mmol/L Chloride 102 (96-114) mmol/L Carbon Dioxide 28 (20-32) mmol/L Anion Gap 10 (7-15) mEq/L BUN 24 (5-24) mg/dL Creatinine 0.6 (0.5-1.5) mg/dL Estimated Creat Clear 120.00 Estimated GFR 121 ml/min Glucose 87 (60-115) mg/dL Lactate 1.5 (0.5-1.9) mmol/L Calcium 9.9 (8.4-10.6) mg/dL Total Bilirubin 0.5 (0.1-1.5) mg/dL AST 31 (12-35) U/L ALT 27 (4-35) U/L Alkaline Phosphatase 71 (40-150) U/L C-Reactive Protein < 0.5 L (0.5-1.0) mg/dL Total Protein 8.1 (6.0-8.3) g/dL Albumin 5.0 (3.3-5.0) g/dL Imaging Data CT scan - abdomen: Attestation: I have reviewed the pertinent imaging results. Radiologist's impression: Patient: MADI YANG Facility:?[facility] Patient ID:?[id number] Site Patient ID:?[id number]. Site :?1990 Study:?CT Abdomen/Pelvis w/97cc's Isovue 370-01/06/2023 5:09:31 PM Ordering Physician:?Rafael Carroll Final Report: INDICATION: Abdominal pain, trauma. TECHNIQUE: Multiplanar CT examination of the abdomen and pelvis were acquired after the administration of 97 mL Omnipaque 350 intravenously. COMPARISON: None. FINDINGS: Lower chest: Partially visualized rounded pulmonary nodule in the right middle lobe measuring approximately 63 Hounsfield units in density and 2.0 x 1.3 cm (2:1). No focal consolidation. Linear bandlike opacifications of the lung bases likely due to subsegmental atelectasis and/or scarring. Normal heart size. No pleural effusions or pneumothorax. Liver: Normal. Gallbladder/Biliary: Normal. No biliary ductal dilitation. Pancreas: Normal. Spleen: Normal. Adrenal Glands: Normal. Kidneys: Normal size and symmetrically enhancing. No obstructive calculi or hydronephrosis. Ureters: Unremarkable. Bladder: Unremarkable. Bowel: No obstruction or bowel wall thickening. The appendix is normal. No significant colonic diverticulosis. Pelvic organs: Unremarkable. Peritoneum: No free fluid or pneumoperitoneum. Vessels: Normal. Portal vein remains patent. No significant atherosclerotic disease. Lymph Nodes: No lymphadenopathy. Abdominal Wall/Soft Tissues: Unremarkable. Bones: Unremarkable. IMPRESSION: 1. No acute abdominopelvic pathology. 2. Incidentally noted 2.0 cm right middle lobe solid pulmonary nodule, incompletely evaluated on this examination. Further evaluation should be obtained with a dedicated CT of the chest. Please note that all CT scans at this facility use dose modulation, iterative reconstruction, and/or weight-based dosing when appropriate to reduce radiation dose to as low as reasonably achievable. Dictated by Shai Guerra MD @ 01/06/2023 6:43:41 PM (Electronic Signature) CT scan - chest: Attestation: I have reviewed the pertinent imaging results. Radiologist's impression: Patient: MADI YANG Facility:?[facility] Patient ID:?[id number] Site Patient ID:?[id number]. Site :?1990 Study:?CT Chest w/o-01/06/2023 7:38:20 PM Ordering Physician:Bernard Carroll Final Report: INDICATION: Lung nodule. TECHNIQUE: CT chest without contrast. COMPARISON: Same day CT abdomen and pelvis. FINDINGS: Lungs and pleura: Right middle lobe nodule measuring 1.6 cm (series 3, image 53). Few additional small pulmonary nodules, such as a 3 mm right middle lobe subpleural nodule (series 3, image 45) and a 3 mm left lower lobe nodule (series 3, image 61). No focal consolidation. No pleural effusions, pleural thickening, or pneumothorax. Heart and vasculature: Heart size is normal. Thoracic aorta and pulmonary artery are normal in caliber. Lymph nodes/mediastinum: No mediastinal, hilar, or axillary adenopathy. Thyroid gland is unremarkable. Chest wall: No masses. Upper abdomen: No significant findings. Bones: Unremarkable for age. IMPRESSION: 1. Few pulmonary nodules, including a 1.6 mm right middle lobe nodule. Please see below for follow-up guidelines. 2. Otherwise unremarkable CT chest. SOCIETY GUIDELINES - SOLID NODULES: SINGLE LOW RISK - nodule less than 6 mm: No routine follow-up. - nodule 6-8 mm: CT at 6-12 months, then consider CT at 18-24 months. - nodule greater than 8 mm: Consider CT at 3 months, PET/CT or tissue sampling. SINGLE HIGH RISK - nodule less than 6 mm: Optional CT at 12 months. - nodule 6-8 mm: CT at 6-12 months, then CT at 18-24 months. - nodule greater than 8 mm: Consider CT at 3 months, PET/CT or tissue sampling. MULTIPLE LOW RISK - nodule less than 6 mm: No routine follow-up. - nodule 6-8 mm: CT at 3-6 months, then consider CT at 18-24 months. - nodule greater than 8 mm: CT at 3-6 months, then consider CT at 18-24 months. MULTIPLE HIGH RISK - nodule less than 6 mm: Optional CT at 12 months. - nodule 6-8 mm: CT at 3-6 months, then at 18-24 months. - nodule greater than 8 mm: CT at 3-6 months, then at 18-24 months. Please note that all CT scans at this facility use dose modulation, iterative reconstruction, and/or weight-based dosing when appropriate to reduce radiation dose to as low as reasonably achievable. Dictated by Daniel Szymanski MD @ 01/06/2023 8:54:53 PM ----- ADDENDUM ----- Please note there is a dictation error in the impression. The right middle lobe nodule measures 1.6 CENTIMETERS. Discharge Plan Discharge Clinical Impression: Gastroenteritis, Multiple pulmonary nodules determined by computed tomography of lung Patient Disposition: Home, Self-Care Condition: Stable Instructions: Gastroenteritis (ED), Acute Nausea and Vomiting (ED), Nutrition Tips for Relief of Diarrhea (ED) Additional Instructions: Hopefully your gastrointestinal symptoms will start to improve. Recommend frequent sips of liquids to stay hydrated. Advance diet as tolerated back to normal as diarrhea improves. May want to try a more bland diet, review handout. If you are not improving through the weekend, do recommend follow up in clinic with your primary provider or back in the ER if you feel you are worse. Do need to schedule follow-up with your primary care provider regardless to give a copy of the CT with the addended report that states the 1 right sided pulmonary nodule is 1.6 cm. A follow-up CT should be done in 3-6 months per Fleischner criteria. Activity Level: Activity as Tolerated Prescriptions: No Action ibuprofen 600 mg Tablet 600 mg PO Q6H PRNQty: 30 0RF metformin 500 mg tablet 1,000 mg PO BID acetaminophen 500 mg tablet 1,000 mg PO Q6H PRN Rx Instructions: NO MORE THAN 4000 MG/DAY hydroxyzine HCl 25 mg tablet 25 mg PO TID PRN (Reason: anxiety) Qty: 20 1RF fluticasone propionate 50 mcg/actuation spray,suspension 1 spray intranasal BID PRN (Reason: nasal congestion) Qty: 16 6RF albuterol sulfate 90 mcg/actuation HFA aerosol inhaler 2 puff inhalation Q4-6H PRN (Reason: shortness of breath or wheezing) Qty: 8.5 3RF paroxetine HCl 20 mg tablet See Rx Instructions PO .ud Qty: 30 5RF Hold Instructions: Order Change Rx Instructions: Half tablet at bedtime for 6 days, then 1 tablet at bedtime orally UD; lorazepam 0.5 mg tablet 0.5 mg PO BID PRN (Reason: anxiety) Qty: 20 0RF Follow Up/Referrals: Pedro Boudreaux MD [Primary Care Provider] - Stand Alone Forms: [facility] Info Instructions
--- NOTE | 2023-01-06 16:27 | CRLHL7_ITS ---
For Patients: As a result of the Century Cures Act, medical imaging exams and procedure reports are released immediately into your electronic medical record. You may view this report before your referring provider. If you have questions, please contact your health care provider. INDICATION: Abdominal pain, trauma. TECHNIQUE: Multiplanar CT examination of the abdomen and pelvis were acquired after the administration of 97 mL Omnipaque 350 intravenously. COMPARISON: None. FINDINGS: Lower chest: Partially visualized rounded pulmonary nodule in the right middle lobe measuring approximately 63 Hounsfield units in density and 2.0 x 1.3 cm (2:1). No focal consolidation. Linear bandlike opacifications of the lung bases likely due to subsegmental atelectasis and/or scarring. Normal heart size. No pleural effusions or pneumothorax. Liver: Normal. Gallbladder/Biliary: Normal. No biliary ductal dilitation. Pancreas: Normal. Spleen: Normal. Adrenal Glands: Normal. Kidneys: Normal size and symmetrically enhancing. No obstructive calculi or hydronephrosis. Ureters: Unremarkable. Bladder: Unremarkable. Bowel: No obstruction or bowel wall thickening. The appendix is normal. No significant colonic diverticulosis. Pelvic organs: Unremarkable. Peritoneum: No free fluid or pneumoperitoneum. Vessels: Normal. Portal vein remains patent. No significant atherosclerotic disease. Lymph Nodes: No lymphadenopathy. Abdominal Wall/Soft Tissues: Unremarkable. Bones: Unremarkable. IMPRESSION: 1. No acute abdominopelvic pathology. 2. Incidentally noted 2.0 cm right middle lobe solid pulmonary nodule, incompletely evaluated on this examination. Further evaluation should be obtained with a dedicated CT of the chest. Please note that all CT scans at this facility use dose modulation, iterative reconstruction, and/or weight-based dosing when appropriate to reduce radiation dose to as low as reasonably achievable. Dictated by Shai Guerra MD @ 01/06/2023 6:43:41 PM (Electronically Signed)
[2023-01-06] MEDS: 0.9 % SODIUM CHLORIDE 1000 ml 1,000 ML IV (16:45)
[2023-01-06] MEDS: ONDANSETRON 2 MG/ML inj 4 MG IVP ×2 (16:45→17:33)
[2023-01-06 16:54] LABS: Lactate* 1.5 mmol/L (0.5-1.9)
[2023-01-06 16:56] LABS: Basophils Absolute Auto 0.04 K/uL (0.00-0.30); Basophils Percent Auto 0.5 % (0.0-3.0); Eosinophils Absolute Auto 0.23 K/uL (0.00-0.50); Eosinophils Percent Auto 2.9 % (0.0-7.0); Immature Granulocytes Abs Auto 0.01 K/uL (0.00-0.30); Immature Granulocytes Pct Auto 0.1 %; Lymphocytes Percent Auto 29.3 % (20-44); Mean Corpuscular HGB Conc 33 gm/dL (32-36); Mean Corpuscular Hemoglobin 31 pg (26-34); Mean Corpuscular Volume 94 fL (80-100); Monocytes Percent Auto 7.1 % (0.0-11.0); Neutrophils Absolute Auto 4.71 K/uL (1.7-7.0); Neutrophils Percent Auto 60.1 % (42.0-72.0); Platelet Count* 246 K/uL (140-440); RDW Coefficient of Variation % 12.3 % (11.5-15.5); Red Blood Count 4.26 m/uL (4.00-5.20); White Blood Count* 7.85 K/uL (4.50-11.00)
[2023-01-06 16:57] LABS: Slide Review Reflex No
[2023-01-06 17:45] LABS: Chloride* 102 mmol/L (96-114); Potassium* 4.3 mmol/L (3.6-5.1); Sodium* 140 mmol/L (135-149)
[2023-01-06 17:47] LABS: Creatinine* 0.6 mg/dL (0.5-1.5); Estimated Glomerular Filt Rate 121 ml/min
[2023-01-06 17:48] LABS: Alanine Aminotransferase* 27 U/L (4-35); Alkaline Phosphatase* 71 U/L (40-150); Anion Gap 10 mEq/L (7-15); Aspartate Amino Transferase* 31 U/L (12-35); Bilirubin Total* 0.5 mg/dL (0.1-1.5); Blood Urea Nitrogen* 24 mg/dL (5-24); Carbon Dioxide* 28 mmol/L (20-32); Total Protein* 8.1 g/dL (6.0-8.3)
[2023-01-06 17:49] LABS: Calcium* 9.9 mg/dL (8.4-10.6); Glucose* 87 mg/dL (60-115)
[2023-01-06 17:58] LABS: C Reactive Protein* < 0.5 mg/dL (0.5-1.0)
--- NOTE | 2023-01-06 19:05 | CRLHL7_ITS ---
For Patients: As a result of the 21st Century Cures Act, medical imaging exams and procedure reports are released immediately into your electronic medical record. You may view this report before your referring provider. If you have questions, please contact your health care provider. INDICATION: Lung nodule. TECHNIQUE: CT chest without contrast. COMPARISON: Same day CT abdomen and pelvis. FINDINGS: Lungs and pleura: Right middle lobe nodule measuring 1.6 cm (series 3, image 53). Few additional small pulmonary nodules, such as a 3 mm right middle lobe subpleural nodule (series 3, image 45) and a 3 mm left lower lobe nodule (series 3, image 61). No focal consolidation. No pleural effusions, pleural thickening, or pneumothorax. Heart and vasculature: Heart size is normal. Thoracic aorta and pulmonary artery are normal in caliber. Lymph nodes/mediastinum: No mediastinal, hilar, or axillary adenopathy. Thyroid gland is unremarkable. Chest wall: No masses. Upper abdomen: No significant findings. Bones: Unremarkable for age. IMPRESSION: 1. Few pulmonary nodules, including a 1.6 mm right middle lobe nodule. Please see below for follow-up guidelines. 2. Otherwise unremarkable CT chest. SOCIETY GUIDELINES - SOLID NODULES: SINGLE LOW RISK - nodule less than 6 mm: No routine follow-up. - nodule 6-8 mm: CT at 6-12 months, then consider CT at 18-24 months. - nodule greater than 8 mm: Consider CT at 3 months, PET/CT or tissue sampling. SINGLE HIGH RISK - nodule less than 6 mm: Optional CT at 12 months. - nodule 6-8 mm: CT at 6-12 months, then CT at 18-24 months. - nodule greater than 8 mm: Consider CT at 3 months, PET/CT or tissue sampling. MULTIPLE LOW RISK - nodule less than 6 mm: No routine follow-up. - nodule 6-8 mm: CT at 3-6 months, then consider CT at 18-24 months. - nodule greater than 8 mm: CT at 3-6 months, then consider CT at 18-24 months. MULTIPLE HIGH RISK - nodule less than 6 mm: Optional CT at 12 months. - nodule 6-8 mm: CT at 3-6 months, then at 18-24 months. - nodule greater than 8 mm: CT at 3-6 months, then at 18-24 months. Please note that all CT scans at this facility use dose modulation, iterative reconstruction, and/or weight-based dosing when appropriate to reduce radiation dose to as low as reasonably achievable. Dictated by Daniel Szymanski MD @ 01/06/2023 8:54:53 PM (Electronically Signed)
[2023-01-06] MEDS: ACETAMINOPHEN 500 MG TABLET 1000 MG PO (20:48)
== END 2023-01-06 22:09 | disposition home or self-care (01) ==
PROVIDERS: Emergency Provider Family Medicine; PCP Family Medicine
DX: K29.70 Gastritis, unspecified, without bleeding (principal); R10.9 Unspecified abdominal pain
CPT/HCPCS: 36415; 71250; 74177; 80053; 83605; 85025; 86140; 94761; 96361; 96374; 96375; 99284; 99285; A9270; J2405; J7030; Q9967

== ENCOUNTER 2023-01-17 16:27 | Emergency (ER) | payer BC, SELFPAY ==
[2023-01-17] VITALS (10 sets, daily range): BP systolic 151; BP diastolic 93; PULSE 58–75; RESP 18; TEMP 36.6; O2SAT 96–99; BMI 33.3
--- NOTE | 2023-01-17 17:23 | ED.ABDPAIN ---
HPI - Abdominal Pain General Chief Complaint: Abdominal Pain Stated Complaint: Abdominal pain Time Seen by Provider: 01/17/23 16:47 History of Present Illness HPI narrative: This 32-year-old female comes in with severe upper epigastric abdominal pain. She was seen for these same symptoms a couple weeks ago at which time she had CT imaging of her chest and abdomen and pelvis. These results returned with normal findings. She was diagnosed with a gastritis. She returns today stating that this pain is sometimes more miserable than delivering a baby. She did not have much pain yesterday. Her pain is in the upper epigastric region. She does not report any intolerance to food. She has had some nausea. There is no report of vomiting or diarrhea. She has not had any fevers. Related Data Home Medications Medication Instructions Recorded Confirmed acetaminophen 500 mg tablet 1,000 mg PO Q6H PRN 03/21/22 01/06/23 metformin 500 mg tablet 1,000 mg PO BID 01/06/23 01/06/23 Previous Rx's Medication Instructions Recorded ibuprofen 600 mg tablet 600 mg PO Q6H PRN #30 tabs 04/16/22 albuterol sulfate 90 mcg/actuation 2 puff inhalation Q4-6H PRN 11/02/22 aerosol inhaler shortness of breath or wheezing #8.5 grams hydroxyzine HCl 25 mg tablet 25 mg PO TID PRN anxiety #20 tabs 11/14/22 paroxetine HCl 20 mg tablet See Rx Instructions PO .ud #30 tabs 11/14/22 lorazepam 0.5 mg tablet 0.5 mg PO BID PRN anxiety #20 tabs 01/03/23 fluticasone propionate 50 1 spray intranasal BID PRN nasal 01/10/23 mcg/actuation nasal congestion #16 grams spray,suspension Allergies Allergy/AdvReac Type Severity Reaction Status Date / Time polymyxin B Allergy Severe Swelling Verified 01/06/23 17:55 trimethoprim Allergy Severe Swelling Verified 01/06/23 17:55 Sulfa (Sulfonamide Allergy Mild Swelling Verified 01/06/23 17:55 Antibiotics) Review of Systems Status of ROS Reports: 10 or more systems reviewed and unremarkable except as noted in History and below Narrative Constitutional: No fevers, no weight gain or loss. Eyes: No discharge. No vision changes. HENT: No congestion, no sore throat, no ear pain. Cardiovascular: No chest pain, no palpitations. Respiratory: No shortness of breath, no wheezes, no cough. Gastrointestinal: Severe upper epigastric abdominal pain. Genitourinary: No dysuria, no hematuria. Musculoskeletal: Normal range of motion. Skin: No rashes, no pruritis. Neurological: No dizziness, weakness, sensory change, speech change. Endo/Heme/Allergies: No bruising or bleeding. No polydipsia. Pysch: no suicidality, no anxiety, no insomnia. All other systems reviewed and are negative. [facility] Medical History Gestational hypertension ?O13.9 - Gestational [-induced] hypertension without significant proteinuria, unspecified trimester (ICD-10) Erosive gastritis ?K29.60 - Other gastritis without bleeding (ICD-10) Alcohol withdrawal syndrome ?F10.239 - Alcohol dependence with withdrawal, unspecified (ICD-10) Surgical History Status post delivery (2015) ?Z98.891 - History of uterine scar from previous surgery (ICD-10) History of left knee surgery ?Z98.890 - Other specified postprocedural states (ICD-10) History of laser assisted in situ keratomileusis (2008) ?Z98.890 - Other specified postprocedural states (ICD-10) History of knee surgery (2015) ?Z98.890 - Other specified postprocedural states (ICD-10) History of colposcopy (2018) ?Z98.890 - Other specified postprocedural states (ICD-10) History of colonoscopy ?Z98.890 - Other specified postprocedural states (ICD-10) Family History Aunt Breast cancer Depression Other Kidney disease Prostate cancer Social History Narrative: , works in [employer], 2 kids Exercises 3/week (walk/run) Non-smoker- quiet 2016, hx of 8 years on and off smoking Social drinker (1/week) What is your current living situation?: I presently have a place to live Problems where you live: no known problems In the past 12 months, utilities in danger of being shut off: no In past 12 months, lack of transportation kept you from medical appts, meetings, work, or getting things needed for daily living: no In the past 12 mos, have been you worried that your food would run out before you had money to buy more?: sometimes true In the past 12 mos, the food you bought just didn't last and you didn't have money to buy more?: declined to answer Physical activity type: none Smoking Status: Former smoker Do you use any of these nicotine containing products: None Second hand tobacco smoke exposure: No How often do you have a drink containing alcohol: 2-3 times a week How often do you have six or more drinks on one occasion: Never AUDIT-C Alcohol total score: 3 Non-prescribed substance use: denies use Are you now , , , , never or living with a partner: Social isolation score (0-1 are the most socially isolated patients): 1 How often does anyone, including family, friends and others, physically hurt you: never How often does anyone, including family, friends and others, insult or talk down to you: never How often does anyone, including family, friends and others, threaten you with harm: never How often does anyone, including family, friends and others, scream or curse at you: never Little interest or pleasure in doing things: not at all Feeling down, depressed, or hopeless: not at all Gender Identity: female Are you currently sexually active: Yes Exam Narrative: Exam Narrative: Constitutional: Well-developed, well-nourished. HEENT: Normocephalic, atraumatic. Neck: Normal range of motion. Nontender. Supple. Heart: Regular. No murmurs. Normal rate. Intact distal pulses. Lungs: Clear to auscultation. No chest discomfort. No wheezes, rhonchi, or rales. Abdomen: Normal bowel sounds. Tenderness in the upper epigastric region. No radiating pain through to the back or to the shoulder. Genitalia: Deferred. Back: No midline tenderness. Normal range of motion. Extremities: Normal range of motion. No injury. Skin: Intact. No rash. Warm. No erythema or pallor. Neurologic: No altered sensation. No weakness. Alert and oriented. Psychiatric: No suicidality. No anxiety or depression. No insomnia. Nursing notes and vitals signs are reviewed. Const: Vital Signs, click to edit/add: Vital Signs - 24 hr 01/17/23 16:39 01/17/23 18:01 01/17/23 18:15 Temperature 97.8 F Pulse Rate 59 L 70 Pulse Rate [Pulse Oximeter] 74 Respiratory Rate 18 Blood Pressure [Ri ght Upper Arm] 151/93 H Pulse Oximetry 96 96 96 Oxygen Delivery Me thod Room Air 01/17/23 18:30 01/17/23 18:45 01/17/23 19:00 Temperature Pulse Rate 58 L 75 69 Pulse Rate [Pulse Oximeter] Respiratory Rate Blood Pressure [Ri ght Upper Arm] Pulse Oximetry 97 99 99 Oxygen Delivery Me thod 01/17/23 19:15 01/17/23 19:30 01/17/23 19:45 Temperature Pulse Rate 67 63 66 Pulse Rate [Pulse Oximeter] Respiratory Rate Blood Pressure [Ri ght Upper Arm] Pulse Oximetry 98 96 97 Oxygen Delivery Me thod Course Vital Signs Vital signs: Initial Vital Signs Temperature 97.8 F 01/17/23 16:39 Temperature Source Temporal Artery Scan 01/17/23 16:39 Pulse Rate 74 01/17/23 16:39 Pulse Rhythm Regular 01/17/23 16:39 Respiratory Rate 18 01/17/23 16:39 Blood Pressure 151/93 H 01/17/23 16:39 Blood Pressure Mean 112 H 01/17/23 16:39 Blood Pressure Position Sitting 01/17/23 16:39 Pulse Oximetry 96 01/17/23 16:39 Oxygen Delivery Method Room Air 01/17/23 16:39 Vital Signs Temperature 97.8 F 01/17/23 16:39 Pulse Rate 74 01/17/23 16:39 Respiratory Rate 18 01/17/23 16:39 Blood Pressure 151/93 H 01/17/23 16:39 Pulse Oximetry 96 01/17/23 16:39 Oxygen Delivery Method Room Air 01/17/23 16:39 Temperature 97.8 F 01/17/23 16:39 Pulse Rate 66 01/17/23 19:45 Respiratory Rate 18 01/17/23 16:39 Blood Pressure 151/93 H 01/17/23 16:39 Pulse Oximetry 97 01/17/23 19:45 Oxygen Delivery Method Room Air 01/17/23 16:39 MDM - Abdominal Pain MDM Narrative Medical decision making narrative: This patient comes in with severe upper epigastric abdominal pain. This is been coming and going over the past couple weeks. She did have CT imaging of her chest, abdomen, and pelvis in her previous visit with results being normal. There was suspicion that she had a gastritis at that time. Today she states that she felt completely normal yesterday but her pain has returned and is severe. She is taking metformin and is currently . An IV was established and labs are acquired. These labs returned with normal results. She did receive IV doses of Dilaudid and Zofran without much relief. She then received Toradol and later Ativan. These did not bring much relief either. She received a L of normal saline and then was given a GI cocktail. She states that the GI cocktail helped a little bit. She was also given a 40 mg dose of Protonix. It does seem that she has something with her GI tract causing this pain. An ultrasound was acquired also and returns with no acute findings. Her gallbladder appears normal. The patient feels okay to return home despite continuing have pain. She did receive a 10 mg intramuscular injection of morphine at the end of her visit and prescriptions for Toradol and [place] are provided from the [employer] machine. I advised her to pump and dump with regard to . I also recommended that she contact her primary physician and make arrangements for endoscopy. Lab Data Labs: Lab Results 01/17/23 Range/Units 17:30 WBC 9.28 (4.50-11.00) K/uL RBC 4.49 (4.00-5.20) m/uL Hgb 13.7 (12.0-16.0) gm/dL Hct 41.6 (33.0-51.0) % MCV 93 (80-100) fL MCH 31 (26-34) pg MCHC 33 (32-36) gm/dL RDW Coeff of Pool 12.1 (11.5-15.5) % Plt Count 265 (140-440) K/uL Neut % (Auto) 62.8 (42.0-72.0) % Lymph % (Auto) 28.3 (20-44) % [place] % (Auto) 6.6 (0.0-11.0) % Eos % (Auto) 1.8 (0.0-7.0) % Baso % (Auto) 0.4 (0.0-3.0) % Neut # (Auto) 5.82 (1.7-7.0) K/uL Lymph # (Auto) 2.63 (0.90-2.90) K/uL [place] # (Auto) 0.60 (0.00-0.90) K/UL Eos # (Auto) 0.17 (0.00-0.50) K/uL Baso # (Auto) 0.04 (0.00-0.30) K/uL Abs Immat Gran (auto) 0.01 (0.00-0.30) K/uL Imm/Tot Granulo (auto) 0.1 % Sodium 140 (135-149) mmol/L Potassium 4.3 (3.6-5.1) mmol/L Chloride 104 (96-114) mmol/L Carbon Dioxide 23 (20-32) mmol/L Anion Gap 13 (7-15) mEq/L BUN 27 H (5-24) mg/dL Creatinine 0.7 (0.5-1.5) mg/dL Estimated Creat Clear 102.86 Estimated GFR 117 ml/min Glucose 94 (60-115) mg/dL Calcium 9.2 (8.4-10.6) mg/dL Total Bilirubin 0.4 (0.1-1.5) mg/dL Direct Bilirubin 0.0 (0.0-0.5) mg/dL AST 28 (12-35) U/L ALT 24 (4-35) U/L Alkaline Phosphatase 80 (40-150) U/L Total Protein 8.4 H (6.0-8.3) g/dL Albumin 5.1 H (3.3-5.0) g/dL Lipase 182 (23-300) U/L Discharge Plan Discharge Clinical Impression: Gastritis, Abdominal pain Patient Disposition: Home w/ Parent or Adult Condition: Stable Additional Instructions: take medication as needed and indicated. Recommend follow-up appointment for endoscopy. Return if worsening. Prescriptions: No Action ibuprofen 600 mg Tablet 600 mg PO Q6H PRNQty: 30 0RF metformin 500 mg tablet 1,000 mg PO BID acetaminophen 500 mg tablet 1,000 mg PO Q6H PRN Rx Instructions: NO MORE THAN 4000 MG/DAY hydroxyzine HCl 25 mg tablet 25 mg PO TID PRN (Reason: anxiety) Qty: 20 1RF albuterol sulfate 90 mcg/actuation HFA aerosol inhaler 2 puff inhalation Q4-6H PRN (Reason: shortness of breath or wheezing) Qty: 8.5 3RF paroxetine HCl 20 mg tablet See Rx Instructions PO .ud Qty: 30 5RF Hold Instructions: Order Change Rx Instructions: Half tablet at bedtime for 6 days, then 1 tablet at bedtime orally UD; lorazepam 0.5 mg tablet 0.5 mg PO BID PRN (Reason: anxiety) Qty: 20 0RF fluticasone propionate 50 mcg/actuation spray,suspension 1 spray intranasal BID PRN (Reason: nasal congestion) Qty: 16 6RF Follow Up/Referrals: Pedro Boudreaux MD [Primary Care Provider] - Stand Alone Forms: [employer] Info Instructions
[2023-01-17] MEDS: HYDROmorphone 0.5 mg/0.5 ml inj IVP (17:36)
[2023-01-17] MEDS: ONDANSETRON 2 MG/ML inj 4 MG IVP (17:36)
[2023-01-17 17:37] LABS: Basophils Absolute Auto 0.04 K/uL (0.00-0.30); Basophils Percent Auto 0.4 % (0.0-3.0); Eosinophils Absolute Auto 0.17 K/uL (0.00-0.50); Eosinophils Percent Auto 1.8 % (0.0-7.0); Hematocrit 41.6 % (33.0-51.0); Hemoglobin* 13.7 gm/dL (12.0-16.0); Immature Granulocytes Abs Auto 0.01 K/uL (0.00-0.30); Immature Granulocytes Pct Auto 0.1 %; Lymphocytes Absolute Auto 2.63 K/uL (0.90-2.90); Lymphocytes Percent Auto 28.3 % (20-44); Mean Corpuscular HGB Conc 33 gm/dL (32-36); Mean Corpuscular Hemoglobin 31 pg (26-34); Mean Corpuscular Volume 93 fL (80-100); Monocytes Percent Auto 6.6 % (0.0-11.0); Neutrophils Absolute Auto 5.82 K/uL (1.7-7.0); Neutrophils Percent Auto 62.8 % (42.0-72.0); Platelet Count* 265 K/uL (140-440); RDW Coefficient of Variation % 12.1 % (11.5-15.5); Red Blood Count 4.49 m/uL (4.00-5.20); White Blood Count* 9.28 K/uL (4.50-11.00)
[2023-01-17 17:38] LABS: Slide Review Reflex No
[2023-01-17 18:00] LABS: Albumin* 5.1 g/dL (3.3-5.0)
[2023-01-17 18:01] LABS: Chloride* 104 mmol/L (96-114); Potassium* 4.3 mmol/L (3.6-5.1); Sodium* 140 mmol/L (135-149)
[2023-01-17 18:03] LABS: Anion Gap 13 mEq/L (7-15); Bilirubin Total* 0.4 mg/dL (0.1-1.5); Carbon Dioxide* 23 mmol/L (20-32); Creatinine* 0.7 mg/dL (0.5-1.5); Est. Creatinine Clearance* 102.86; Estimated Glomerular Filt Rate 117 ml/min
[2023-01-17 18:04] LABS: Alanine Aminotransferase* 24 U/L (4-35); Alkaline Phosphatase* 80 U/L (40-150); Aspartate Amino Transferase* 28 U/L (12-35); Blood Urea Nitrogen* 27 mg/dL (5-24); Calcium* 9.2 mg/dL (8.4-10.6); Glucose* 94 mg/dL (60-115); Lipase* 182 U/L (23-300); Total Protein* 8.4 g/dL (6.0-8.3)
[2023-01-17] MEDS: LORazepam 2 MG/ML inj 0.5 MG IV (18:17)
--- NOTE | 2023-01-17 19:07 | CRLHL7_ITS ---
For Patients: As a result of the Cures Act, medical imaging exams and procedure reports are released immediately into your electronic medical record. You may view this report before your referring provider. If you have questions, please contact your health care provider. INDICATION: Right upper quadrant epigastric abdominal pain TECHNIQUE: Ultrasound abdomen limited. Sonographic images of the right upper quadrant were obtained using waddell-scale and color Doppler images. COMPARISON: 01/06/2023 FINDINGS: Liver: The liver parenchyma is normal in echotexture. Gallbladder: The neck of the gallbladder is not well demonstrated. No gallstones or sludge seen in the lumen. The gallbladder wall is normal in appearance. No pericholecystic fluid is present. No sonographic Hussein???s sign is present. Common bile duct: 4 mm but is not well visualized. No intrahepatic biliary ductal dilatation seen. Pancreas: The visualized portions of the pancreatic head and body are normal in appearance. Right Kidney: 11.6 cm. No hydronephrosis or ureterectasis is seen. Vascular: The visualized abdominal aorta and IVC are unremarkable. IMPRESSION: 1. The right upper quadrant is unremarkable in appearance. Dictated by Tobias Mayorga MD @ 01/17/2023 9:54:58 PM Dictated by: Tobias Mayorga MD @ 01/17/2023 21:55:03 (Electronically Signed)
[2023-01-17] MEDS: KETOROLAC 30 MG/ML inj IVP (19:18)
[2023-01-17] MEDS: MAG HYDROX/ALUMINUM HYD/SIMETH 30 ML ORAL.SUSP 15 ML PO (20:32)
[2023-01-17] MEDS: lidocaine HCL 4 % TOP SOLN 50 ML BOTTLE 7.5 ML PO (20:32)
[2023-01-17] MEDS: 0.9 % SODIUM CHLORIDE 1000 ml 1,000 ML IV (20:32)
[2023-01-17] MEDS: PANTOPRAZOLE SODIUM 40 MG INJ IVP (20:36)
[2023-01-17] MEDS: MORPHINE 10 MG/ML inj IM (21:48)
== END 2023-01-17 22:00 | disposition home or self-care (01) ==
PROVIDERS: Emergency Provider Emergency Medicine Emergency Medical Services; PCP Family Medicine
DX: K29.70 Gastritis, unspecified, without bleeding (principal)
CPT/HCPCS: 36415; 76705; 80048; 80076; 83690; 85025; 96372; 96374; 96375; 99284; A9270; C9113; J1170; J1885; J2060; J2270; J2405; J7030

== ENCOUNTER 2023-03-28 11:35 | Outpatient (CLI) | payer BC, SELFPAY | END 2023-03-28 11:36 | disposition home or self-care (01) | LOC: NFLDREF 03-30 06:28 | PROVIDERS: PCP Family Medicine; Referring Provider Family Medicine; Visit Provider Family Medicine | DX: R53.83 Other fatigue (principal); Z87.898 Personal history of other specified conditions | CPT/HCPCS: 84443; 86039 ==

== ENCOUNTER 2023-03-31 08:29 | Outpatient (CLI) | payer BC, SELFPAY ==
--- NOTE | 2023-03-31 09:00 | CRLHL7_ITS ---
For Patients: As a result of the Century Cures Act, medical imaging exams and procedure reports are released immediately into your electronic medical record. You may view this report before your referring provider. If you have questions, please contact your health care provider. Indication: PULMONARY NODULE Technique: Noncontrast CT chest Please note that all CT scans at this facility use dose modulation, iterative reconstruction, and/or weight-based dosing when appropriate to reduce radiation dose to as low as reasonably achievable. Comparison: 01/06/2023 Findings: No significant interval change in the circumscribed noncalcified pulmonary nodule within the right middle lobe measuring 1.6 cm. Interval development of mild airspace densities in the dependent right lower lobe. Stable tiny 2 millimeter nodule within the left lower lobe, . No pleural effusion. No adenopathy. Incidental splenule is present. No hiatal hernia. Thyroid gland normal, as visualized. Osseous structures are within normal limits. Impression: No significant interval change in the circumscribed solid noncalcified right middle lobe pulmonary nodule measuring 1.7 cm. This is new since prior studies in September 2006. Pulmonary consultation recommended. CT-PET could be considered at this point. Small infiltrate has developed within the right lower lobe. Please note that all CT scans at this facility use dose modulation, iterative reconstruction, and/or weight-based dosing when appropriate to reduce radiation dose to as low as reasonably achievable. Dictated by Francesco Mcnamara MD @ 03/31/2023 10:53:44 AM (Electronically Signed)
== END 2023-03-31 08:30 | disposition home or self-care (01) ==
LOC: CT 08:30
PROVIDERS: PCP Family Medicine; Visit Provider Family Medicine
DX: R91.1 Solitary pulmonary nodule (principal)
CPT/HCPCS: 71250

== ENCOUNTER 2023-04-03 14:30 | Outpatient (CLI) | payer BC, SELFPAY | END 2023-04-03 14:31 | disposition home or self-care (01) | LOC: LKVREF 14:32 | PROVIDERS: PCP Family Medicine; Visit Provider Family Medicine | DX: R53.83 Other fatigue (principal); R20.2 Paresthesia of skin; J18.9 Pneumonia, unspecified organism | CPT/HCPCS: 80053 ==

== ENCOUNTER 2023-06-14 09:06 | Outpatient (CLI) | payer BC, SELFPAY | END 2023-06-14 09:07 | disposition home or self-care (01) | LOC: LKVREF 09:08 | PROVIDERS: PCP Family Medicine; Visit Provider Family Medicine | DX: Z01.818 Encounter for other preprocedural examination (principal); C34.2 Malignant neoplasm of middle lobe, bronchus or lung | CPT/HCPCS: 80048 ==

== ENCOUNTER 2023-08-01 07:03 | Outpatient (CLI) | payer BC, SELFPAY ==
--- NOTE | 2023-08-01 07:15 | MR_ITS ---
Patient: MADI YANG Facility:?[facility] Patient ID:?[id number] Site Patient ID:?[id number]. Site :?[id number] Study:?MRI-Head W/ and W/O Cont 20 CC [facility]-08/01/2023 8:34:42 AM Ordering Physician:?CRISTI CHEEAM Final Report: Indication: Pituitary adenoma Technique: High-resolution sagittal and coronal, pre and postcontrast T1 weighted sequences through the pituitary gland, axial diffusion, T2 FLAIR sequences are provided. A total of 20 mL Dotarem IV contrast was administered. Comparison: MRI brain 06/04/2021 Findings: The ventricles and cortical sulci are normal in configuration. No midline shift or mass effect, hydrocephalus or herniation. No abnormal restricted diffusion, acute intracranial hemorrhage, or suspicious extra-axial fluid collection. White matter signal is unremarkable. No suspicious brain parenchymal enhancement. There is a 6 x 6 x 6 mm (AP/TR/CC) focus of relative hypoenhancement within the right aspect of the sella. On the 06/04/2021 exam, a smaller indistinct area of relative hypoenhancement was likely present in this region, measuring 3-4 mm. There is no convincing evidence of right cavernous sinus invasion. The pituitary gland remains normal in size, without evidence of suprasellar extension. The infundibulum is slightly leftward deviated. There is no mass effect on the optic apparatus. The paranasal sinuses and mastoid air cells have a normal signal. Major expected intracranial flow voids are preserved. Orbits are unremarkable. Impression: 1. There is a 6 mm focus of relative hypoenhancement within the right aspect of the sella, suspicious for a pituitary microadenoma. 2. Slight leftward deviation of the infundibulum. No suprasellar extension or evidence of cavernous sinus invasion. 3. Otherwise unremarkable MRI of the brain. No evidence of acute intracranial abnormality. Dictated by Madelaine Muhammad MD @ 08/01/2023 9:47:42 AM Signed by:?Madelaine Muhammad MD @08/01/2023 9:47:42 AM (Electronic Signature)
== END 2023-08-01 07:04 | disposition home or self-care (01) ==
PROVIDERS: PCP Family Medicine; Visit Provider Internal Medicine Endocrinology, Diabetes & Metabolism
DX: E23.7 Disorder of pituitary gland, unspecified (principal); J34.2 Deviated nasal septum
CPT/HCPCS: 70553; A9575

== ENCOUNTER 2023-08-16 22:02 | Outpatient (REF) | payer BC, SELFPAY ==
[2023-08-19 09:35] LABS: Cortisol/Cortisone Ratio 0.28 ratio (0.15-0.50); Hours Collected 24 hr; Total Volume 1100 mL
== END 2023-08-16 22:03 | disposition home or self-care (01) ==
LOC: LAB 22:02
PROVIDERS: PCP Family Medicine; Visit Provider Internal Medicine Endocrinology, Diabetes & Metabolism
DX: D49.7 Neoplasm of unspecified behavior of endocrine glands and other parts of nervous system (principal)
CPT/HCPCS: 36415; 82570

== ENCOUNTER 2023-09-13 10:31 | Outpatient (CLI) | payer BC, SELFPAY | END 2023-09-13 10:32 | disposition home or self-care (01) | LOC: LKVREF 10:34 | PROVIDERS: PCP Family Medicine; Visit Provider Family Medicine | DX: R11.2 Nausea with vomiting, unspecified (principal) | CPT/HCPCS: 80053 ==

== ENCOUNTER 2023-12-26 13:55 | Emergency (ER) | payer BC, SELFPAY ==
[2023-12-26 14:11] VITALS: BP 130/88; PULSE 85; RESP 20; TEMP 36.9; O2SAT 96; BMI 33.3
--- NOTE | 2023-12-26 14:32 | CRLHL7_ITS ---
For Patients: As a result of the Cures Act, medical imaging exams and procedure reports are released immediately into your electronic medical record. You may view this report before your referring provider. If you have questions, please contact your health care provider. INDICATION: Cough TECHNIQUE: Chest radiograph 2 views COMPARISON: 09/15/2022 FINDINGS: Mediastinum: The mediastinum is normal in appearance. The heart silhouette is normal in size and morphology. Lung: A pulmonary staple line is present in the right midlung zone. Both lungs are unremarkable in appearance. No sign of pleural effusion seen. No pneumothorax is identified. Bone and Soft tissue: Unremarkable for age. IMPRESSION: 1. No acute cardiopulmonary disease is seen. Dictated by Tobias Mayorga MD @ 12/26/2023 4:35:49 PM Dictated by: Tobias Mayorga MD @ 12/26/2023 16:35:54 (Electronically Signed)
--- NOTE | 2023-12-26 14:34 | ED_ITS ---
HPI - General Adult General Date Seen: 12/26/23 Chief complaint: Chest Pain Stated complaint: Poss pneumonia, dizzy Time Seen by Provider: 12/26/23 14:04 Source: patient Mode of arrival: ambulatory Limitations: no limitations History of Present Illness HPI narrative: Patient is a 33-year-old woman here for evaluation of fatigue, nausea, vomiting, sore throat, cough which has been ongoing for the past 5 days or so. She says she was feeling some muscle cramping on Monday, a few days ago, and so had IV fluids by [facility] IV done at home. 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 She has not had any lower extremity swelling or pain. She has not had fevers that she knows of. She has had a few episodes of vomiting today. No significant diarrhea and no significant abdominal pain. Has kind of lost her voice, but she is swallowing without difficulty. She denies tobacco or current alcohol use. Denies other substances. She takes a couple medications for anxiety, takes metformin for polycystic ovarian syndrome. Related Data Home Medications ?Medication ?Instructions ?Recorded ?Confirmed docosahexaenoic acid 200 mg mg PO 04/03/23 11/27/23 capsule ( DHA) Previous Rx's ?Medication ?Instructions ?Recorded lorazepam 1 mg tablet 1 mg PO QHS PRN sleep #30 tabs 09/08/23 metformin 500 mg tablet 1,000 mg (2 x 500 mg) PO BID #360 09/26/23 tabs naltrexone 50 mg tablet 50 mg PO QDAY #30 tabs 10/23/23 ondansetron 4 mg disintegrating 4 mg PO Q8H PRN nausea and 11/27/23 tablet vomiting #14 tabs hydroxyzine HCl 50 mg tablet 50 mg PO TID PRN anxiety #30 tabs 12/22/23 lorazepam 0.5 mg tablet 0.5 mg PO BID PRN anxiety #60 tabs 12/22/23 Allergies Allergy/AdvReac Type Severity Reaction Status Date / Time polymyxin B Allergy Severe Swelling Verified 12/26/23 14:11 trimethoprim Allergy Severe Swelling Verified 12/26/23 14:11 Sulfa (Sulfonamide Allergy Mild Swelling Verified 12/26/23 14:11 Antibiotics) Review of Systems Status of ROS: Reports: 10 or more systems reviewed and unremarkable except as noted in History and below PFSH PFS Medical History H/O migraine during ?Z86.69 - Personal history of other diseases of the nervous system and sense organs (ICD-10) ?Z87.59 - Personal history of other complications of , childbirth and the puerperium (ICD-10) Gestational hypertension ?O13.9 - Gestational [-induced] hypertension without significant proteinuria, unspecified trimester (ICD-10) Erosive gastritis ?K29.60 - Other gastritis without bleeding (ICD-10) Alcohol withdrawal syndrome ?F10.239 - Alcohol dependence with withdrawal, unspecified (ICD-10) Surgical History S/P thoracotomy ?Z98.890 - Other specified postprocedural states (ICD-10) Status post delivery (2015) ?Z98.891 - History of uterine scar from previous surgery (ICD-10) History of left knee surgery ?Z98.890 - Other specified postprocedural states (ICD-10) History of laser assisted in situ keratomileusis (2008) ?Z98.890 - Other specified postprocedural states (ICD-10) History of knee surgery (2016) ?Z98.890 - Other specified postprocedural states (ICD-10) History of colposcopy (2018) ?Z98.890 - Other specified postprocedural states (ICD-10) History of colonoscopy ?Z98.890 - Other specified postprocedural states (ICD-10) Family History Aunt Breast cancer Depression Other Kidney disease Prostate cancer Social History Narrative: , works in [employer], 2 kids Exercises 3/week (walk/run) Non-smoker- quiet 2015, hx of 8 years on and off smoking Social drinker (1/week) What is your current living situation?: I presently have a place to live Problems where you live: no known problems In the past 12 months, utilities in danger of being shut off: no In past 12 months, lack of transportation kept you from medical appts, meetings, work, or getting things needed for daily living: no In the past 12 mos, have been you worried that your food would run out before you had money to buy more?: sometimes true In the past 12 mos, the food you bought just didn't last and you didn't have money to buy more?: declined to answer Physical activity type: none Smoking Status: Former smoker Do you use any of these nicotine containing products: None Second hand tobacco smoke exposure: No How often do you have a drink containing alcohol: 2-3 times a week How often do you have six or more drinks on one occasion: Never AUDIT-C Alcohol total score: 3 Non-prescribed substance use: denies use Are you now , , , , never or living with a partner: Social isolation score (0-1 are the most socially isolated patients): 1 How often does anyone, including family, friends and others, physically hurt you : never How often does anyone, including family, friends and others, insult or talk down to you: never How often does anyone, including family, friends and others, threaten you with harm: never How often does anyone, including family, friends and others, scream or curse at you: never Little interest or pleasure in doing things: not at all Feeling down, depressed, or hopeless: not at all Gender Identity: female Are you currently sexually active: Yes Exam Narrative: Exam Narrative: Vital signs as noted above. In general, an alert, well-appearing patient. Voice is hoarse, she is speaking essentially in a whisper however. Head: Normocephalic, atraumatic. Eyes: Pupils are equal reactive. Extraocular movements are full. Conjunctivae are normal. ENT: Mucous membranes are moist. Throat is normal. Neck: Supple without lymphadenopathy. No stridor. Heart: Regular rate and rhythm. No murmur or rub. Lungs: Clear bilaterally. No increased work of breathing, crackles or wheezes. Abdomen: Soft and nontender. No organomegaly. Extremities: Well perfused. No edema. No calf tenderness. Pulses intact. Neurologic: Patient is alert and oriented to person and place. Speech is fluent. Face is symmetric. Moves all extremities equally. Affect: Normal. Skin: Warm and dry. Well perfused. Const: Vital Signs, click to edit/add: Vital Signs - 24 hr 12/26/23 14:11 Temperature 98.5 F Pulse Rate [Pulse Oximeter] 85 Respiratory Rate 20 Blood Pressure [Ri ght Upper Arm] 130/88 Pulse Oximetry 96 Oxygen Delivery Me thod Room Air Documenting provider has reviewed patient's vital signs: yes Course Course ED Course: EKG done on arrival shows normal sinus rhythm, ventricular rate of 84 beats per minute. No acute ST segment changes. We placed an IV, gave her a L of normal saline. I checked labs including a CBC which showed a normal white blood cell count of 9, unremarkable diff. Hemoglobin of 12.8. Metabolic panel is within normal limits, BUN 9 creatinine 0.6, blood sugar was 115. CRP is less than 0.5. Viral swab was negative. Chest x-ray by my review did not show evidence of pneumonia, final radiology read as follows:FINDINGS: Mediastinum: The mediastinum is normal in appearance. The heart silhouette is normal in size and morphology. Lung: A pulmonary staple line is present in the right midlung zone. Both lungs are unremarkable in appearance. No sign of pleural effusion seen. No pne umothorax is identified. Bone and Soft tissue: Unremarkable for age. IMPRESSION: 1. No acute cardiopulmonary disease is seen. I do not feel she needs evaluation for pulmonary embolism, she is PERC negative and symptoms overall are strongly suggestive of a viral source. Have offered prednisone given her laryngitis symptoms, will prescribe that for her and she will decide whether not she decides to take it. Otherwise, supportive care, return for acute worsening or significant respiratory difficulties. See primary care if not improving over the next week. Vital Signs Vital signs: Initial Vital Signs Temperature 98.5 F 12/26/23 14:11 Temperature Source Temporal Artery Scan 12/26/23 14:11 Pulse Rate 85 12/26/23 14:11 Respiratory Rate 20 12/26/23 14:11 Blood Pressure 130/88 12/26/23 14:11 Blood Pressure Mean 102 12/26/23 14:11 Blood Pressure Position Sitting 12/26/23 14:11 Pulse Oximetry 96 12/26/23 14:11 Oxygen Delivery Method Room Air 12/26/23 14:11 Vital Signs Temperature 98.5 F 12/26/23 14:11 Pulse Rate 85 12/26/23 14:11 Respiratory Rate 20 12/26/23 14:11 Blood Pressure 130/88 12/26/23 14:11 Pulse Oximetry 96 12/26/23 14:11 Oxygen Delivery Method Room Air 12/26/23 14:11 Temperature 98.5 F 12/26/23 14:11 Pulse Rate 85 12/26/23 14:11 Respiratory Rate 20 12/26/23 14:11 Blood Pressure 130/88 12/26/23 14:11 Pulse Oximetry 96 12/26/23 14:11 Oxygen Delivery Method Room Air 12/26/23 14:11 Medications Administered Medications: Discontinued Medications Generic Name Dose Route Start Last Admin Trade Name Freq PRN Reason Stop Dose Admin Sodium Chloride 1,000 mls @ 1,000 mls/hr 12/26/23 14:45 12/26/23 15:47 0.9 % Sodium Chloride 1000 Ml IV 12/26/23 15:44 1,000 mls/hr .Q1H ENID Administration Ondansetron HCl 4 mg 12/26/23 14:32 12/26/23 15:47 Ondansetron 2 Mg/Ml Inj IVP 12/26/23 14:33 4 mg ONCE ONE Administration Medical Decision Making Lab Data Labs: Lab Results 12/26/23 12/26/23 Range/Units 14:54 15:06 WBC 8.97 (4.50-11.00) K/uL RBC 4.22 (4.00-5.20) m/uL Hgb 12.8 (12.0-16.0) gm/dL Hct 39.3 (33.0-51.0) % MCV 93 (80-100) fL MCH 30 (26-34) pg MCHC 33 (32-36) gm/dL RDW Coeff of Pool 12.5 (11.5-15.5) % Plt Count 240 (140-440) K/uL Neut % (Auto) 66.7 (42.0-72.0) % Lymph % (Auto) 27.0 (20-44) % [place] % (Auto) 4.6 (0.0-11.0) % Eos % (Auto) 0.9 (0.0-7.0) % Baso % (Auto) 0.6 (0.0-3.0) % Neut # (Auto) 5.99 (1.7-7.0) K/uL Lymph # (Auto) 2.42 (0.90-2.90) K/uL [place] # (Auto) 0.40 (0.00-0.90) K/UL Eos # (Auto) 0.08 (0.00-0.50) K/uL Baso # (Auto) 0.05 (0.00-0.30) K/uL Abs Immat Gran (auto) 0.02 (0.00-0.30) K/uL Imm/Tot Granulo (auto) 0.2 % Sodium 142 (135-149) mmol/L Potassium 4.1 (3.6-5.1) mmol/L Chloride 105 (96-114) mmol/L Carbon Dioxide 22 (20-32) mmol/L Anion Gap 15 (7-15) mEq/L BUN 9 (5-24) mg/dL Creatinine 0.6 (0.5-1.5) mg/dL Estimated Creat Clear 118.88 Estimated GFR 121 ml/min Glucose 115 (60-115) mg/dL Calcium 9.4 (8.4-10.6) mg/dL C-Reactive Protein < 0.5 L (0.5-1.0) mg/dL SARS-CoV-2 (PCR) Negative SARS-CoV-2 (Negative) Influenza Type A (PCR) Negative PCR FLU A (Negative) Influenza Type B (PCR) Negative PCR FLU B (Negative) RSV (PCR) Negative PCR RSV (Negative) Discharge Plan Discharge Clinical Impression: Acute viral syndrome Patient Disposition: Home, Self-Care Condition: Improved Instructions: Viral Syndrome (ED) Additional Instructions: Ibuprofen and/or Tylenol as needed. Prednisone if desired, this may help with your scratchy throat. Return any time for significant worsening particularly of your respiratory status. See her primary doctor if not gradually improving over the next week. Prescriptions: No Action DHA 200 mg capsule PO ondansetron 4 mg tablet,disintegrating 4 mg PO Q8H PRN (Reason: nausea and vomiting) Qty: 14 0RF lorazepam 1 mg tablet 1 mg PO QHS PRN (Reason: sleep) Qty: 30 2RF metformin 500 mg tablet 1,000 mg PO BID Qty: 360 3RF naltrexone 50 mg tablet 50 mg PO QDAY Qty: 30 5RF lorazepam 0.5 mg tablet 0.5 mg PO BID PRN (Reason: anxiety) Qty: 60 1RF hydroxyzine HCl 50 mg tablet 50 mg PO TID PRN (Reason: anxiety) Qty: 30 4RF Follow Up/Referrals: Pedro Boudreaux MD [Primary Care Provider] - Stand Alone Forms: [facility] Info Instructions
--- OUTSIDE RECORDS SUMMARY | 2023-12-26 14:40 | XMS_ITS | Clinical Summary ---
Author Organization [facility] Address [address] [place] [id number] Care Team Providers Care Radio Time Buyer Name Role Phone Madelaine Mitchell DO Unavailable Francesco Merritt MD Unavailable [phone] Gabe Carl MD Unavailable [phone] [place] [address] Primary Care Provider Allergies Active Allergy Reactions Criticality Noted Date Comments Polymyxin B-Trimethoprim 07/20/2017 Swelling in eye Sulfa Antibiotics Swelling 09/12/2014 Medications Medication Sig Dispensed Refills Start Date End Date Status Vit-Fe Fumarate-FA ( MULTIVITAMIN PLUS IRON) 27-0.8 MG TABS Take 1 tablet by mouth daily Active Probiotic Product (ACIDOPHILUS PROBIOTIC BLEND PO) Activ e BIOTIN PO Active loratadine (CLARITIN) 10 MG tablet Take 10 mg by mouth daily Active azelastine (ASTELIN) 0.1 % nasal sprayIndications:Po st-nasal drip [place] 1 spray into both nostrils 2 times daily 1 Bottle 11 10/22/2018 Active metFORMIN (GLUCOPHAGE-XR) 500 MG 24 hr tabletIndications:P COS (polycystic ovarian syndrome) TAKE 4 TABLETS BY MOUTH DAILY 360 tablet 1 04/08/2019 Active nystatin (MYCOSTATIN) 940494 UNIT/ML suspension TAKE 6 ML BY MOUTH FOUR TIMES A DAY SWISH IN MOUTH AND SWALLOW. KEEP IN MOUTH LONG POSSIBLE PRIOR TO SWALLOWING. 01/31/2020 Active oxyCODONE (ROXICODONE) 5 MG tablet Take 1 tablet (5 mg) by mouth every 6 hours as needed for pain 6 tablet 12/24/2020 Active Additional Information Patient not taking.Reported on 10/24/2022 ibuprofen (ADVIL/MOTRIN) 200 MG tablet Take 3 tablets (600 mg) by mouth every 8 hours as needed for mild pain 1 tablet 12/24/2020 Active Additional Information Patient not taking.Reported on 10/24/2022 letrozole (FEMARA) 2.5 MG tabletIndications:A novulation Take 1 tablet (2.5 mg) by mouth See Admin Instructions 35 tablet 03/18/2021 Active Additional Information Patient not taking.Reported on 10/24/2022 prochlorperazine (COMPAZINE) 10 MG tablet Take 1 tablet (10 mg) by mouth every 6 hours as needed for nausea or vomiting 20 tablet 03/31/2021 Active Additional Information Patient not taking.Reported on 10/24/2022 busPIRone (BUSPAR) 5 MG tabletIndications:A nxiety Take 1 tablet (5 mg) by mouth 2 times daily for 10 days, THEN 1.5 tablets (7.5 mg) 2 times daily for 10 days, THEN 2 tablets (10 mg) 2 times daily for 10 days. 90 tablet 04/30/2021 Active methocarbamol (ROBAXIN) 500 MG tabletIndications:T rapezius muscle spasm,Left arm numbness Take 1-2 tablets (500-1,000 mg) by mouth 4 times daily as needed for muscle spasms 20 tablet 04/30/2021 Active Additional Information Patient not taking.Reported on 10/24/2022 diazepam (VALIUM) 2 MG tablet 1 TABLET BY MOUTH NIGHTLY FOR 14 NIGHTS, THEN DISCONTINUE. 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 Plan colp 04/25/18 [place] - no visible lesions, no bx. Plan pap due in 1 year pap from previous pap 03/13/19 Pap reminder letter sent. ([facility]) 03/14/19 TE states pt is 25 weeks (ASAD 06/27/19), no appts in chart. ([facility]) CCT tracking Headache 12/16/2016 PCOS (polycystic ovarian syndrome) Resolved Problems Problem Noted Date Diagnosed Date Resolved Date (spontaneous vaginal delivery) 12/18/2016 04/11/2017 PIH ( induced hypertension) 12/16/2016 04/11/2017 Indication for care in labor or delivery 12/11/2016 04/11/2017 Labor and delivery indicatio n for care or intervention 11/30/2016 04/11/2017 Supervision of normal first , antepartum 10/10/2016 04/11/2017 Left knee pain 01/19/2016 05/10/2016 CARDIOVASCULAR SCREENING; LD L GOAL LESS THAN 160 01/01/2015 04/12/2017 Encounters Date Type Department Care Team Description 11/28/2023 2:03 PM CDT - 11/28/2023 5:34 PM CDT Emergency [facility] Emergency Dept [address] [place] [address] Matt Clements MD Anxiety reaction; Benzodiazepine withdrawal without complication (H) Discharge Disposition: Home or Self Care 11/28/2023 Travel from Last 3 Months Immunizations Name Administration Dates Next Due DTAP (<7y) 12/08/1993, 1,02/06/1990,1989,1989 HEPATITIS A (PEDS 12M-18Y) 07/26/2006 HIB(PRP-OMP)(PedvaxHIB) 11/06/1990 HPV Quadrivalent 11/12/2010 HPV9 12/12/2011,03/01/2011,11/12/2010 Hepatitis A (ADULT 19+) 07/26/2006 Hepatitis B, Peds 04/18/2000,08/06/1999,06/07/19 00 Influenza (IIV3) PF 01/17/2018,06/09/2016 Influenza Vaccine >6 months,quad, PF 02/04/2019, 01/17/2018,04/11/2017 MMR 10/24/2001,11/06/1990 Meningococcal ACWY (Menactra??) 07/26/2006 Meningococcal,unspecified 07/26/2006 OPV, trivalent, live 12/08/1993,11/06/18 91,1989,1989 Rabies Vaccine 10/02/2006,08/28/2006 TD,PF 7+ (Tenivac) 05/03/2019,07/10/2002 TDAP (Adacel,Boostrix) 07/28/2007 TDAP Vaccine (Adacel) 05/03/2019,10/20/2016,02/16 Yellow Fever 07/26/2006 Family History Medical History Relation Comments Family History Negative Father Family History Negative Mother Cancer Paternal Grandfather lung Relation Status Comments Brother Alive Father Alive Mother Alive Paternal Grandfather Sister Alive Social History Tobacco Use Types Packs/Day Years Used Date Smoking Tobacco: Former Smokeless Tobacco: Never Comments:2 to 3 a day Alcohol Use Standard Drinks/Week Comments Yes 0 (1 standard drink = 0.6 oz pur e alcohol) PHQ-2 Answer Date Recorded PHQ-2 Score 3 10/24/2022 Adolescent Education Answer Date Record ed Getting School Help Needed Not on file 01/06 Sex and Gender Information Value Date Recorded Sex Assigned at Not on file Gender Identity Not on file Sexual Orientation Not on file Last Filed Vital Signs Vital Sign Reading Time Taken Comments Blood Pressure 149/97 11/28/2023 5:10 PM CDT Pulse 86 11/28/2023 5:10 PM CDT Temperature 36.4 ??C (97.6 ??F) 11/28/2023 12:27 PM C DT Respiratory Rate 18 11/28/2023 5:10 PM CDT Oxygen Saturation 100% 11/28/2023 5:10 PM CDT Inhaled Oxygen Concentration - - Weight 95.9 kg (211 lb 6.7 oz) 11/28/2023 12:25 PM CDT Height 165.1 cm (5' 5) 11/28/2023 12:25 PM CDT Body Mass Index 35.18 11/28/2023 12:25 PM CDT Plan of Treatment Health Maintenance Due Date Last Done Comments ADVANCE CARE PLANNING 1989 COVID-19 Vaccine (#1) 1994 Pneumococcal Vaccine: Pediatrics (0 to 5 Years) and At-Risk Patients (6 to 64 Years) (1 of 2 - PCV) 07/28/1995 HEPATITIS A IMMUNIZATION (2 of 2 - Risk 2-dose series) 01/25/2007 07/26/2006, 07/26/2006 HEPATITIS C SCREENING 07/28/2007 YEARLY PREVENTIVE VISIT 03/28/2019 03/28/20 18, 04/11/2017, 04/11/2016, Additional history exists PAP 08/20/2021 08/20/2020, 0 09/2020, 08/19/2019, Additional history exists PHQ-9 04/26/2023 10/24/2022, 04/17, 09/25/2018, Additional history exists ANNUAL REVIEW OF HM ORDERS 10/25/2023 10/24/2022 INFLUENZA VACCINE (#1) 2023 , 02/04/2019, 01/17/2018, Additional history exists DTAP/TDAP/TD IMMUNIZATION (12 - Td or Tdap) 02/19/2032 02/18/2022, 05/03/2019, 05/03/2019, Additional history exists HEPATITIS B IMMUNIZATION Completed 001, 08/06/1999, 06/07/1999 MENINGITIS IMMUNIZATION Completed 07/26/2006, 07/26 HPV IMMUNIZATION Completed 12/12/2011, , 11/12/2010, Additional history exists HIV SCREENING Completed 05/05/2016 DEPRESSION ACTION PLAN Completed 09/25/2018 HPV FOLLOW-UP Completed 08/20/2020, 0 07/2019, 08/19/2019, Additional history exists PAP FOLLOW-UP Completed 08/20/2020, 0 09/2020, 08/19/2019, Additional history exists RSV MONOCLONAL ANTIBODY Aged Out No l onger eligible based on patient's age to complete this topic Procedures Procedure Name Priority Date/Time Associated Diagnosis Comments CTA HEAD NECK W CONTRAST STAT 11/28/2023 4:[address] HEAD W/O CONTRAST STAT 11/28/2023 3:58 PM CDT URINE CULTURE STAT 11/28/2023 2:43 PM CDT ROUTINE UA WITH MICROSCOPIC REFLEX TO CULTURE STAT 11/28/2023 2:43 PM CDT CBC WITH PLATELETS & DIFFERENTIAL STAT 11/28/2023 12:57 PM CDT HCG QUALITATIVE STAT 11/28/2023 12:57 PM CDT TSH WITH FREE T4 REFLEX STAT 11/28/2023 12:57 PM CDT MAGNESIUM STAT 11/28/2023 12:57 PM CDT EXTRA RED TOP TUBE STAT 11/28/2023 12 :57 PM CDT EXTRA BLUE TOP TUBE STAT 11/28/2023 1 2:57 PM CDT CBC WITH PLATELETS AND DIFFERENTIAL STAT 11/28/2023 12:57 PM CDT EXTRA TUBE STAT 11/28/2023 12:57 PM CDT TROPONIN T, HIGH SENSITIVITY STAT 11/28/2023 12:57 PM CDT BASIC METABOLIC PANEL STAT 11/28/2023 12:57 PM CDT EKG 12-LEAD, TRACING ONLY STAT 11/28/2023 12:43 PM CDT HPV HIGH RISK TYPES DNA CERVICAL Routine 03/28/2018 9:20 AM [employer] PCOS (polycystic ovarian syndrome) PAP IMAGED THIN LAYER SCREEN Routine 03/28/2018 9:09 AM [employer] Encounter for general adult medical examination with abnormal findings HIV ANTIGEN ANTIBODY COMBO Routine 05/05/2016 9:51 AM [employer] test positive from Last 3 Months or Most Recently Relevant to Health Maintenance Results * CTA Head Neck w Contrast (11/28/2023 4:01 PM CDT) Anatomical Region Laterality Modality Head, SUBRAD CT NEURO, SUBRA D CT NEURO, UMP CT NEURO, RAD CT Computed Tomography Impressions 11/28/2023 4:59 PM CDT IMPRESSION: Normal neck and head CTA. Radiation dose for this scan was reduced using automated exposure control, adjustment of the mA and/or kV according to patient size, or iterative reconstruction technique CHRIS BOONE MD SYSTEM ID: ??[id number] Narrative 11/28/2023 4:[address] ANGIOGRAM OF THE HEAD AND NECK WITHOUT AND WITH CONTRAST ??11/28/2023 4:01 PM COMPARISON: Head and neck CT angiogram 09/15/2022. HISTORY: Headache, blurred vision. TECHNIQUE: Precontrast localizing scans were followed by CT angiography with an injection of 67mL [id number] nonionic intravenous contrast material with scans through the head and neck. ??Images were transferred to a separate 3-D workstation where multiplanar reformations and 3-D images were created. ??Estimates of carotid stenoses are made relative to the distal internal carotid artery diameters except as noted. ?? FINDINGS: Neck CTA: The bilateral common carotid, bilateral cervical internal carotid and bilateral vertebral arteries are patent without stenosis. Head CTA: The basilar, bilateral intracranial distal internal carotid, bilateral anterior cerebral, bilateral middle cerebral and bilateral posterior cerebral arteries are patent and unremarkable. Procedure Note Chris Boone MD - 11/28/2023 CT ANGIOGRAM OF THE HEAD AND NECK WITHOUT AND WITH CONTRAST 11/28/2023 4:01 PM COMPARISON: Head and neck CT angiogram 09/15/2022. HISTORY: Headache, blurred vision. TECHNIQUE: Precontrast localizing scans were followed by CT angiography with an injection of 67mL Isovue-370 nonionic intravenous contrast material with scans through the head and neck. Images were transferred to a separate 3-D workstation where multiplanar reformations and 3-D images were created. Estimates of carotid stenoses are made relative to the distal internal carotid artery diameters except as noted. FINDINGS: Neck CTA: The bilateral common carotid, bilateral cervical internal carotid and bilateral vertebral arteries are patent without stenosis. Head CTA: The basilar, bilateral intracranial distal internal carotid, bilateral anterior cerebral, bilateral middle cerebral and bilateral posterior cerebral arteries are patent and unremarkable. IMPRESSION: Normal neck and head CTA. Radiation dose for this scan was reduced using automated exposure control, adjustment of the mA and/or kV according to patient size, or iterative reconstruction technique CHRIS BOONE MD SYSTEM ID: [id number] Matt Clements MD IMG CT ORDERABL ES * CT Head w/o Contrast (11/28/2023 3:58 PM CDT) Anatomical Region Laterality Modality Head, SUBRAD CT NEURO, SUBRA D CT NEURO, UMP CT NEURO, RAD CT Computed Tomography Impressions 11/28/2023 4:13 PM CDT IMPRESSION: ??Normal head CT. Radiation dose for this scan was reduced using automated exposure control, adjustment of the mA and/or kV according to patient size, or iterative reconstruction technique CHRIS BOONE MD SYSTEM ID: ??[id number] Narrative 11/28/2023 4:[address] OF THE HEAD WITHOUT CONTRAST 11/28/2023 3:58 PM COMPARISON: Head CT 09/15/2022. HISTORY: ??Headache. TECHNIQUE: Axial CT images of the head from the skull base to the vertex were acquired without IV contrast. FINDINGS: The ventricles and basal cisterns are within normal limits in configuration. There is no midline shift. There are no extra-axial fluid collections. Amaya-white differentiation is well maintained. No intracranial hemorrhage, mass or recent infarct. The visualized paranasal sinuses are well-aerated. There is no mastoiditis. There are no fractures of the visualized bones. Procedure Note Chris Boone MD - 11/28/2023 CT OF THE HEAD WITHOUT CONTRAST 11/28/2023 3:58 PM COMPARISON: Head CT 09/15/2022. HISTORY: Headache. TECHNIQUE: Axial CT images of the head from the skull base to the vertex were acquired without IV contrast. FINDINGS: The ventricles and basal cisterns are within normal limits in configuration. There is no midline shift. There are no extra-axial fluid collections. Amaya-white differentiation is well maintained. No intracranial hemorrhage, mass or recent infarct. The visualized paranasal sinuses are well-aerated. There is no mastoiditis. There are no fractures of the visualized bones. IMPRESSION: Normal head CT. Radiation dose for this scan was reduced using automated exposure control, adjustment of the mA and/or kV according to patient size, or iterative reconstruction technique CHRIS BOONE MD SYSTEM ID: [id number] Matt Clements MD IMG CT ORDERABL ES * (ABNORMAL) UA with Microscopic reflex to Culture (11/28/2023 2:43 PM CDT) Color Urine Light Yellow Colorless, Straw, Light Yellow, Yellow 11/28/2023 3:17 PM CDT [facility] Appearance Urine Slightly Cloudy(A) Clear 11/28/2023 3:17 PM CDT [facility] Glucose Urine Negative Negative mg/dL 11/28/2023 3:17 PM CDT [facility] Bilirubin Urine Negative Negative 3:17 PM CDT [facility] Ketones Urine Negative Negative mg/dL 11/28/2023 3:17 PM CDT [facility] Specific Nichols Urine 1.017 1.003 - 1.035 11/28/2023 3:17 PM CDT [facility] Blood Urine Negative Negative 11/28/2023 3:17 PM CDT [facility] pH Urine 6.5 5.0 - 7.0 11/28/2023 3:17 PM CDT [facility] Protein Albumin Urine Negative Negative mg/dL 11/28/2023 3:17 PM CDT [facility] Urobilinogen Urine Normal Normal, 2.0 mg/dL 11/28/2023 3:17 PM CDT [facility] Nitrite Urine Negative Negative 11/28/2023 3:17 PM CDT [facility] Leukocyte Esterase Urine Moderate(A) Negative 11/28/2023 3:17 PM CDT [facility] Mucus Urine Present(A) None Seen /LPF 11/28/2023 3:17 PM CDT [facility] RBC Urine 3(H) <=2 /HPF 11/28/2023 3:17 PM CDT [facility] WBC Urine 5 <=5 /HPF 11/28/2023 3:17 PM CDT [facility] Squamous Epithelials Urine 10(H) <=1 /HPF 11/28/2023 3:17 PM CDT [facility] Urine MID-STREAM URINE SPECIMEN / Unknown Non-blood Collection / Unknown 11/28/2023 2:43 PM CDT 11/28/2023 2:48 PM CDT Narrative [facility] - 11/28/2023 3:17 PM CDT Urine Culture ordered based on laboratory criteria Matt Clements MD LAB - URINE ORD ERABLES LABORATORY [facility] [address] Lab (1st floor, no room number) [place] [address] * Urine Culture (11/28/2023 2:43 PM CDT) Culture 50,000-100,000 CFU/mL Mixture of urogenital alanna 11/30/2023 1:11 PM CDT [facility] Urine MID-STREAM URINE SPECIMEN / Unknown Non-blood Collection / Unknown 11/28/2023 2:43 PM CDT 11/28/2023 3:13 PM CDT Matt Clements MD LAB - MICRO GEN ERAL ORDERABLES [facility] Lab [address] [place] [address] * Extra Red Top Tube (11/28/2023 12:57 PM CDT) Hold Specimen JIC 11/28/2023 2:16 PM CDT [facility] Blood STRUCTURE OF LEFT UPPER LIMB / Unknown Venipuncture / Unknown 11/28/2023 12:57 PM CDT 11/28/2023 1:10 PM CDT Matt Clements MD LAB - BLOOD ORD ERABLES LABORATORY [facility] [address] Lab (1st floor, no room number) [place] [address] * Extra Blue Top Tube (11/28/2023 12:57 PM CDT) Hold Specimen JIC 11/28/2023 2:16 PM CDT [facility] Blood STRUCTURE OF LEFT UPPER LIMB / Unknown Venipuncture / Unknown 11/28/2023 12:57 PM CDT 11/28/2023 1:10 PM CDT Matt Clements MD LAB - BLOOD ORD ERABLES LABORATORY [facility] [address] Lab (1st floor, no room number) [place] [address] * CBC with platelets and differential (11/28/2023 12:57 PM CDT) WBC Count 7.3 4.0 - 11.0 10e3/uL 11/28/2023 1:15 PM CDT [facility] RBC Count 4.31 3.80 - 5.20 10e6/uL 11/28/2023 1:15 PM CDT [facility] Hemoglobin 13.5 11.7 - 15.7 g/dL 11/28/2023 1:15 PM CDT [facility] Hematocrit 40.4 35.0 - 47.0 % 11/28/2023 1:15 PM CDT [facility] MCV 94 78 - 100 fL 11/28/2023 1:15 PM CDT [facility] MCH 31.3 26.5 - 33.0 pg 11/28/2023 1:15 PM CDT [facility] MCHC 33.4 31.5 - 36.5 g/dL 11/28/2023 1:15 PM CDT [facility] RDW 12.6 10.0 - 15.0 % 11/28/2023 1:15 PM CDT [facility] Platelet Count 228 150 - 450 10e3/uL 11/28/2023 1:15 PM CDT [facility] % Neutrophils 70 % 11/28/2023 1:15 PM CDT [facility] % Lymphocytes 24 % 11/28/2023 1:15 PM CDT [facility] % Monocytes 4 % 11/28/2023 1:15 PM CDT [facility] % Eosinophils 2 % 11/28/2023 1:15 PM CDT [facility] % Basophils 0 % 11/28/2023 1:15 PM CDT [facility] % Immature Granulocytes 0 % 11/28/2023 1:15 PM CDT [facility] NRBCs per 100 WBC 0 <1 /100 024 1:15 PM CDT [facility] Absolute Neutrophils 5.1 1.6 - 8.3 10e3/uL 11/28/2023 1:15 PM CDT [facility] Absolute Lymphocytes 1.7 0.8 - 5.3 10e3/uL 11/28/2023 1:15 PM CDT [facility] Absolute Monocytes 0.3 0.0 - 1.3 10e3/uL 11/28/2023 1:15 PM CDT [facility] Absolute Eosinophils 0.2 0.0 - 0.7 10e3/uL 11/28/2023 1:15 PM CDT [facility] Absolute Basophils 0.0 0.0 - 0.2 10e3/uL 11/28/2023 1:15 PM CDT [facility] Absolute Immature Granulocytes 0.0 <=0.4 10e3/uL 11/28/2023 1:15 PM CDT [facility] Absolute NRBCs 0.0 10e3/uL 11/28/2023 1:15 PM CDT [facility] Blood STRUCTURE OF LEFT UPPER LIMB / Unknown Venipuncture / Unknown 11/28/2023 12:57 PM CDT 11/28/2023 1:10 PM CDT Matt Clements MD LAB - BLOOD ORD ERABLES [facility] [address] [facility] Lab (1st floor, no room number) [place] [address], [facility] * Troponin T, High Sensitivity (11/28/2023 12:57 PM CDT) Troponin T, High Sensitivity <6 <=14 ng/L 11/28/2023 1:32 PM CDT [facility] Comment: Either a High Sensitivity Troponin T baseline (0 hours) value = 100 ng/L, or an increase in High Sensitivity Troponin T = 7 ng/L at 2 hours compared to 0 hours (2-0 hours), suggests myocardial injury, and urgent clinical attention is required. ?? If the 2-0 hours increase is <7 ng/L, a High Sensitivity Troponin T result above gender-specific reference ranges warrants further evaluation. Recommendations for further evaluation include correlation with clinical decision-making tool (e.g., HEART), a 3rd High Sensitivity Troponin T test 2 hours after the 2nd (a 20% change from baseline would represent concern), admission for observation, close PCC/cardiology follow-up, or urgent outpatient provocative testing. Blood STRUCTURE OF LEFT UPPER LIMB / Unknown Venipuncture / Unknown 11/28/2023 12:57 PM CDT 11/28/2023 1:10 PM CDT Matt Clements MD LAB - BLOOD ORD ERABLES Performing Organization Address City/[facility]/ZIP Co de Phone Number [facility] Lab [address] Lab (1st floor, no room number) [place] [phone] * TSH with free T4 reflex (11/28/2023 12:57 PM CDT) TSH 0.42 0.30 - 4.20 uIU/mL 11/28/2023 2:42 PM CDT LABORATORY Blood STRUCTURE OF LEFT UPPER LIMB / Unknown Venipuncture / Unknown 11/28/2023 12:57 PM CDT 11/28/2023 1:10 PM CDT Matt Clements MD LAB - BLOOD ORD ERABLES [facility] Care Lab [address] Lab (1st floor, no room number) [place] [address] * Magnesium (11/28/2023 12:57 PM CDT) Magnesium 2.0 1.7 - 2.3 mg/dL 11/28/2023 2:31 PM CDT [facility] Blood STRUCTURE OF LEFT UPPER LIMB / Unknown Venipuncture / Unknown 11/28/2023 12:57 PM CDT 11/28/2023 1:10 PM CDT Matt Clements MD LAB - BLOOD ORD ERABLES Performing Organization Address City/[facility]/ZIP Co de Phone Number LABORATORY [facility] [address] Lab (1st floor, no room number) [place] [phone] * HCG qualitative Blood (11/28/2023 12:57 PM CDT) Pathologist [facility] hCG Serum Qualitative Negative Negative HERMILO 11/28/2023 2:33 PM CDT [facility] Comment:This test is for scr eening purposes. Results should be interpreted along with the clinical picture. Confirmation testing is available if warranted by ordering [id number], HCG Quantitative . Blood STRUCTURE OF LEFT UPPER LIMB / Unknown Venipuncture / Unknown 11/28/2023 12:57 PM CDT 11/28/2023 1:10 PM CDT Matt Clements MD LAB - BLOOD ORD ERABLES Performing Organization Address [facility]/ZIP Co de Phone Number [facility] Lab [address] Lab (1st floor, no room number) [place] [address] * (ABNORMAL) Basic metabolic panel (11/28/2023 12:57 PM CDT) Pathologist [facility] Sodium 138 135 - 145 mmol/L 11/28/2023 1:32 PM CDT [facility] Potassium 4.1 3.4 - 5.3 mmol/L 11/28/2023 1:32 PM CDT [facility] Chloride 102 98 - 107 mmol/L 11/28/2023 1:32 PM CDT [facility] Carbon Dioxide (CO2) 22 22 - 29 mmol/L 11/28/2023 1:32 PM CDT [facility] Anion Gap 14 7 - 15 mmol/L 11/28/2023 1:32 PM CDT [facility] Urea Nitrogen 16.6 6.0 - 20.0 mg/dL 11/28/2023 1:32 PM CDT [facility] Creatinine 0.71 0.51 - 0.95 mg/dL 11/28/2023 1:32 PM CDT [facility] GFR Estimate >90 >60 mL/min/1.7 3m2 11/28/2023 1:32 PM CDT [facility] Comment:eGFR calculated usin 2020 CKD-EPI equation. Calcium 9.3 8.8 - 10.4 mg/dL 11/28/2023 1:32 PM CDT [facility] Comment:Reference intervals for this test were updated on 10/31/2023 to reflect our healthy population more accurately. There may be differences in the flagging of prior results with similar values performed with this method. Those prior results can be interpreted in the context of the updated reference intervals. Glucose 114(H) 70 - 99 mg/dL 11/28/2023 1:32 PM CDT LABORATORY Blood STRUCTURE OF LEFT UPPER LIMB / Unknown Venipuncture / Unknown 11/28/2023 12:57 PM CDT 11/28/2023 1:10 PM CDT Matt Clements MD LAB - BLOOD ORD ERABLES LABORATORY [facility] [address] [facility] Lab (1st floor, no room number) [place] [address] * EKG 12-lead, tracing only (11/28/2023 12:43 PM CDT) Systolic Blood Pressure mmHg RADIOLOGY RESULTS Diastolic Blood Pressure mmHg RADIOLOGY RESULTS Ventricular Rate 70 BPM RAD IOLOGY RESULTS Atrial Rate 70 BPM RADIOLOG Y RESULTS NJ Interval 156 ms RADIOLOG Y RESULTS QRS Duration 88 ms RADIOLO GY RESULTS QT 388 ms RADIOLOGY RESULTS QTc 419 ms RADIOLOGY RESULTS P Daisy 12 degrees RADIOLOGY RESULTS R AXIS 35 degrees RADIOLOGY RESULTS T Daisy 6 degrees RADIOLOGY RESULTS Interpretation ECG Sinus rhythm Normal ECG When compared with ECG of 15-Sep-2022 08:14, No significant change was found Unconfirmed report - interpretation of this ECG is computer generated - see medical record for final interpretation Confirmed by - EMERGENCY ROOM, PHYSICIAN ([id number]), photograph editor José Olsen ([id number]) on 11/28/2023 2:10:41 PM RADIOLOGY RESULTS 11/28/2023 12:4 3 PM CDT 11/28/2023 2:10 PM CDT Matt Clements MD ECG ORDERABLES RADIOLOGY RESULTS * (ABNORMAL) HPV High Risk Types DNA Cervical (03/28/2018 9:20 AM MAJOR GIFTS OFFICER) HPV Source SurePath 04/03/2018 7:38 AM MAJOR GIFTS OFFICER [facility] HPV 16 DNA Negative NEG^Nega tive 04/03/2018 4:18 PM MAJOR GIFTS OFFICER [facility] HPV 18 DNA Negative NEG^Nega tive 04/03/2018 4:18 PM MAJOR GIFTS OFFICER [facility] Other HR HPV Positive(A) NEG^Nega tive 04/03/2018 4:18 PM [facility] Final Diagnosis This patient's sample is positive for other HR HPV DNA (types 31, 33, 35, 39, 45, 51, 52, 56, 58, 59, 66 or 68), not HPV 16 or HPV 18 DNA. This result requires clinical correlation with concurrent cytology findings. 04/03/2018 4:18 PM [facility] Comment: This test was developed and its performance characteristics determined by the [facility]. It has not been cleared or approved by the FDA. The laboratory is regulated under CLIA as qualified to perform high-complexity testing. This test is used for clinical purposes. It should not be regarded as investigational or for research. (Note) METHODOLOGY: ??The Allison yesy 4800 system uses automated extraction, simultaneous amplification of HPV (L1 region) and beta-globin, ?? followed by ??real time detection of fluorescent labeled HPV and beta globin using specific oligonucleotide probes . The test specifically identifies types HPV 16 DNA and HPV 18 DNA while concurrently detecting the rest of the high risk types (31, 33, 35, 39, 45, 51, 52, 56, 58, 59, 66 or 68). COMMENTS: ??This test is not intended for use as a screening device for women under age 30 with normal cervical cytology. ??Results should be correlated with cytologic and histologic findings. Close clinical followup is recommended. Specimen Description Cervical Cells 04/03/2018 7:38 AM MAJOR GIFTS OFFICER [facility] Comment:[id number] 03/28/2018 9:20 AM MAJOR GIFTS OFFICER 03/28/2018 2:56 PM MAJOR GIFTS OFFICER Tristen Radhasunny Jiang INFORMATION TECHNOLOGY SECURITY ANALYST HIGH LIFT MULE OPERATOR LAB - BLOOD ORDERABLES [facility] [address] [place] [address] * (ABNORMAL) Pap imaged thin layer screen reflex to HPV if ASCUS - recommend age 25 - 29 (03/28/2018 9:09 AM MAJOR GIFTS OFFICER) PAP ASC-US(A) JOSE JUAN Singh Report Patient Name: MADI MOSS MR#: [id number] Specimen #: [id number] Collected: 03/28/2018 Received: 03/29/2018 Reported: 04/02/2018 14:41 Ordering Phy(s): TRISTEN JIANG For improved result formatting, select 'View Enhanced Report Format' under Linked Documents section. SPECIMEN/STAIN PROCESS: Pap imaged thin layer prep screening (Surepath, FocalPoint with guided screening) ? Pap-Cyto x 1, Pap with reflex to HPV if ASCUS x 1 SOURCE: Cervical, endocervical Pap imaged thin layer prep screening (Surepath, FocalPoint with guided screening) SPECIMEN ADEQUACY: Satisfactory for evaluation. -Transformation zone component present. CYTOLOGIC INTERPRETATION: Epithelial cell abnormality: ??squamous cell: ??atypical squamous cells-of undetermined significance (ASC-US). Electronically signed out by: Carmine Stevens M.D. Processed and screened at [facility] CLINICAL HISTORY: LMP: 03/05/2018 A previous normal pap Date of Last Pap: 01/01/2015, Papanicolaou Test Limitations: ??Cervical cytology is a screening test with limited sensitivity; regular screening is critical for cancer prevention; Pap tests are primarily effective for the diagnosis/preventi on of squamous cell carcinoma, not adenocarcinomas or other cancers. TESTING LAB LOCATION: [facility] [address] [place], [place] ??[address] COLLECTION SITE: Client: ??[facility] Location: RIIM (R) COPATH Cytologic material (specimen) 03/28/2018 9:09 AM MAJOR GIFTS OFFICER 03/29/2018 11:25 AM MAJOR GIFTS OFFICER Tristen Jiang APRN HIGH LIFT MULE OPERATOR LAB - OPTIME CLINICAL SPECIMEN COPATH * HIV Antigen Antibody Combo (05/05/2016 9:51 AM MAJOR GIFTS OFFICER) HIV Antigen Antibody Combo Nonreactive HIV-1 p24 Ag & HIV-1/HIV-2 Ab Not Detected NR [facility] Blood specimen (specimen) 05/05/2016 9:51 AM MAJOR GIFTS OFFICER 05/05/2016 9:56 AM MAJOR GIFTS OFFICER Madelaine Mitchell DO LAB - BLOOD ORDER [facility] [address] [id number] from Last 3 Months or Most Recently Relevant to Health Maintenance Care Teams Radio Time Buyer Relationship Specialty Start Date End Date [facility], [address] [address] PCP - General 11/28/23 Madelaine Mitchell DO licensed mortgage loan officer 07/26/16 Francesco Merritt MD [facility] [address] [place] [address] Family Medicine - Sports Medicine 12/14/18 Gabe Carl MD [address] [facility] VINICIUS MANNING [address] Assigned PCP 05/09/21
--- OUTSIDE RECORDS SUMMARY | 2023-12-26 14:40 | XMS_ITS | Clinical Summary ---
Author Organization [employer] [facility] Address [place], [place] [address] Care Team Providers Care Senior Property Accountant Name Role Phone Pedro Boudreaux MD Primary Care Provider Leana Syed RN, BSN Unavailable [phone] Ceferino Catalan MD Unavailable [phone] Allergies Active Allergy Reactions Criticality Noted Date Comments Polymyxin B Sulf-Trimethoprim Edema 2017 Swelling in eye Sulfa (Sulfonamide Antibiotics) Edema 12/2005 Medications Medication Sig Dispensed Refills Start Date End Date Status albuterol HFA (PRO-AIR; VENTOLIN; PROVENTIL) 90 mcg/actuation inhaler Inhale 2 Puffs by mouth every 4 hours if needed. 11/02/2022 Active medication order composer collagen Active cholecalciferol, vitamin D3, (VITAMIN D3 ORAL) Take 1 Tablet by mouth once daily. Active LORazepam (ATIVAN) 0.5 mg tab Take 0.5 mg by mouth 2 times daily if needed for Anxiety. Active fluticasone (50 mcg per actuation) nasal solution (FLONASE) Inhale 1 [place] to both nostrils once daily if needed for Rhinitis. 01/10/2023 Active vitamins-folic acid 1 mg ( RX) tablet Take 1 Tablet by mouth once daily. Active metFORMIN (GLUCOPHAGE) 500 mg tablet Take 1,000 mg by mouth two times daily with meals. Active zolpidem (AMBIEN) 5 mg tablet Take 5 mg by mouth at bedtime if needed for Sleep. Active methocarbamoL (ROBAXIN) 500 mg tabletIndications: Carcinoid tumor of right lung Take 1 Tablet (500 mg) by mouth four times daily. 28 Tablet 06/21/2023 Active hydrOXYzine pamoate (VISTARIL) 50 mg capsuleIndications :Carcinoid tumor of right lung Take 1 Capsule (50 mg) by mouth every 8 hours if needed for Itching or Anxiety. 21 Capsule 06/21/2023 Active oxyCODONE (ROXICODONE) 5 mg immediate release tabletIndications: Carcinoid tumor of right lung Take 1-2 Tablets (5-10 mg) by mouth every 4 hours if needed for Pain (moderate - severe). 20 Tablet 06/21/2023 Active sennosides-docusat e (SENOKOT S) (8.6-50 mg) tabletIndications: Carcinoid tumor of right lung Take 1-4 Tablets by mouth two times daily. 60 Tablet 06/21/2023 Active cephalexin (KEFLEX) 500 mg capsuleIndications :Mastitis, right, acute Take 1 Capsule (500 mg) by mouth every 6 hours for 10 days. 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 Plan colp 04/25/18 [place] - no visible lesions, no bx. Plan pap due in 1 year pap from previous pap 03/13/19 Pap reminder letter sent. ([facility]) 03/14/19 TE states pt is 25 weeks (ASAD 06/27/19), no appts in chart. ([facility]) CCT tracking PCOS (polycystic ovarian syndrome) 04/26/2017 Pre-diabetes 04/07/2008 Irregular menses 03/21/2008 Exercise-induced asthma Resolved Problems Problem Noted Date Diagnosed Date Resolved Date Corneal ulcer, unspecified 08/25/2006 0 04/18/2008 FEVER 04/26/2017 Encounters Date Type Department Care Team Description 12/10/2023 7:05 PM CDT - 12/10/2023 7:52 PM CDT Emergency [address] [address] Evi Novak PA Mastitis, right, acute (Primary Dx) Discharge Disposition: Home Self Care 12/10/2023 Travel from Last 3 Months Immunizations Name Administration Dates Next Due DTP 12/08/1993, 1,02/06/1990,1989, 1989 HIB PRP-OMP (PedvaxHIB) 11/06/1990 Hepatitis A (Adult) 07/26/2006 Hepatitis B (Peds) 04/18/2000,08/06/1999, 000 Human Papilloma Virus Vaccine 11/12/2010 MMR 10/24/2001,11/06/1990 Meningococcal Vaccine 07/26/2006 Oral Polio Vaccine 12/08/1993,11/06/1990, 990,1989 Rabies Vaccine 10/02/2006,08/28/2006 10/02/2006 Td (Age >=7 Years) 07/10/2002 Tdap 03/12/2008 Yellow Fever 07/26/2006 Family History Medical History Relation Name Comments Hyperlipidemia Father Other Maternal Grandmother micah ons Genetic Other Mother: A\T\W~F ather: A\T\W~ Relation Name Status Comments Father Alive Maternal Grandmother Mother Alive Other Social History Tobacco Use Types Packs/Day Years Used Date Smoking Tobacco: Former Cigarettes Q uit: 05/19/2013 Smokeless Tobacco: Never Tobacco Cessation:Counseling Given: Not Answered Comments:Smoked 0.5 pack/day x 10 years Alcohol Use Standard Drinks/Week Comments Yes 2 (1 standard drink = 0.6 oz pur e alcohol) weekly Social Connections Answer Date Recorded Frequency of Communication with Friends and Fami ly Not on file 06/19/2023 Sex and Gender Information Value Date Recorded Sex Assigned at Not on file Gender Identity Not on file Sexual Orientation Not on file Obstetrics History Para Term AB IAB SAB Ectopic Multiple Livin g Live Births 1 0 0 0 0 0 0 0 0 0 Date Outcome GA Total Labor Labor/2nd/3rd Weight Sex Type Anes PTL Barbie A1 A5 Name Clin Last Filed Vital Signs Vital Sign Reading Time Taken Comments Blood Pressure 114/76 12/10/2023 6:54 PM CDT Pulse 77 12/10/2023 6:54 PM CDT Temperature 37.2 ??C (99 ??F) 12/10/2023 6:54 PM CDT Respiratory Rate 18 12/10/2023 6:54 PM CDT Oxygen Saturation 97% 12/10/2023 6:54 PM CDT Inhaled Oxygen Concentration - - Weight 90.7 kg (200 lb) 12/10/2023 6:54 PM CDT Height 165.1 cm (5' 5) 12/10/2023 6:54 PM CDT Body Mass Index 33.28 12/10/2023 6:54 PM CDT Plan of Treatment Health Maintenance Due Date Last Done Comments Depression screening for age 12+ 2001 Tetanus booster 03/12/2018 03/12/2008, 07/10/2002 Pap test for age 21-65 08/21/2023 , 08/20/2020, 08/19/2019, Additional history exists COVID-19 vaccine series ( season) 2023 Influenza for age 9-49 12/17/2023 BMI (ht and wt on same day) for age 18+ 06/26/2024 06/27/2023, 06/01/2023, 06/03/2015 Tdap Completed 03/12/2008 HIV for age 15-65 Completed 11/12/2010 Hepatitis C screening for age 18-79 Completed 11/12/2010 Pneumococcal series for age 6-64 Aged Out No longer eligible based on patient's age to complete this topic Procedures Procedure Name Priority Date/Time Associated Diagnosis Comments [employer] THIN PREP PAP SCREEN IMAGED Routine 08/20/2020 1:00 PM CDT ANTI HIV 1/2 Routine 11/12/2010 11:20 AM CDT Screen for STD (sexually transmitted disease) ANTI HCV Routine 11/12/2010 11:20 AM CDT Screen for STD (sexually transmitted disease) from Last 3 Months or Most Recently Relevant to Health Maintenance Results * [employer] THIN PREP PAP SCREEN IMAGED (08/20/2020 1:00 PM CDT) Case Report Gynecologic Cytology Report ? Case: [id number] ? Authorizing Provider: ??Megan Hernandez MD ??Collected: ? 08/20/2020 1300 ? Ordering Location: ? [facility] ?Received: ?08/23/2020 0927 ? First Screen: ?Baccam, Minie ? Specimen: ?[employer] ThinPrep Vial Screening, Cervical/Vaginal ? 09/01/2020 12:03 PM CDT [facility] INTERPRETATION/ RESULT NEGATIVE FOR INTRAEPITHELIAL LESION OR MALIGNANCY (NIL) (none) 09/01/2020 12:03 PM CDT [facility] IMEN ADEQUACY Satisfactory for evaluation Endocervical component present 09/01/2020 12:03 PM CDT [facility] HPV REQUEST HPV and PAP 09/01/2020 12:03 PM CDT [facility] Date of LMP 07/30/2020 09/01/2020 12:03 PM CDT [facility] Last Pap Date 08/19/2019 09/01/2020 12:03 PM CDT [facility] Last Pap Result NIL 12:03 PM CDT [facility] Additional Information 09/01/2020 12:03 PM CDT [facility] Comment: Interpreted at [facility] - [address], [place] [address] Automated Review Successful 09/01/2020 12:03 PM CDT [facility] Comment:Specimen processed s uccessfully by automated car seat coverer device, ThinPrep Imaging System, [employer] ANCILLARY TESTING [employer] HPV Ordered, Please see separate report 09/01/2020 12:03 PM CDT [facility] Note The pap test is a screening technique, not a diagnostic procedure. It is used primarily to screen for squamous cancers and precursor lesions. Published studies have shown that it is subject to both false negative and false positive results. The pap test should not be used as the sole means to diagnose or exclude pre-malignant and malignant lesions. 09/01/2020 12:03 PM CDT [facility] Other (Cervical/Vagina l) 08/20/2020 1:00 PM CDT 08/23/2020 9:27 AM CDT Megan Hernandez MD PATHOLOGY/CYTOLO GY [facility] [address] [place] [address], * ANTI HCV (11/12/2010 11:20 AM CDT) ANTI HCV Non-reacti ve [facility] Blood specimen (specimen) BLOOD SPECIMEN / Unknown 11/12/2010 11:20 AM CDT 11/12/2010 11:08 AM CDT Capri Marquez MD SEND OUTS [facility] INTERNAL ZIP [address] [address] * ANTI HIV 1/2 (11/12/2010 11:20 AM CDT) ANTI [facility] 1/2 [facility] specimen (specimen) BLOOD SPECIMEN / Unknown 11/12/2010 11:20 AM CDT 11/12/2010 11:08 AM CDT Capri Marquez MD SEND OUTS [facility] INTERNAL ZIP [address] [place] [address] from Last 3 Months or Most Recently Relevant to Health Maintenance Advance Directives * Full Code (Latest Code Status on File) Date Activated Date Inactivated Comments 06/19/2023 12:32 PM 06/21/2023 11:35 AM Question Answer Comments Code Status Discussion: Reviewed Preferences * Full Code Date Activated Date Inactivated Comments 06/19/2023 6:09 AM 06/19/2023 12:32 PM Question Answer Comments Code Status Discussion: Unable to Assess Preferences, Provider to review later * Full Code Date Activated Date Inactivated Comments 05/22/2023 7:45 AM 05/22/2023 1:03 PM Question Answer Comments Code Status Discussion: Reviewed Preferences Care Teams Senior Property Accountant Relationship Specialty Start Date End Date Pedro Boudreaux MD [address] [place] [address] PCP - General Family Practice 05/10/23 Leana Syed, RN, BSN [address] [place] [address] Nurse Navigator - Oncology Registered Nurse 05/29/23 Ceferino Catalan MD [address], [place] [address] Surgery - Cardiothoracic 06/01/23
--- OUTSIDE RECORDS SUMMARY | 2023-12-26 14:41 | XMS_ITS | Encounter Summary ---
Author Organization [place] Address [address] [place] [address] Care Team Providers Care Spool Tender Name Role Phone Madelaine Mitchell DO Unavailable Rosamaria Jones MD Primary Care Provider Francesco Merritt MD Unavailable Gabe Carl MD Unavailable [phone] Danielle Alcantar MD Unavailable [phone] [facility] Primary Care Provider Reason for Referral * Infertility Artificial Insemination (Routine: Next available opening) - Closed Specialty Diagnoses / Procedures Referred By Contjoaquin t Referred To Contact Diagn[place] [address] [place] [address] [facility] [address] [place] [id number] Referral ID Status Reason Start Date Expiration Date Visits Re quested Visits Authorized [id number] Closed 06/07/2021 06/07/2022 1 1 Question Answer Preferred Location: Other (external) - Use Comments Non-internal location selection reason: Patient Preference/Choice Scheduling Instructions: Please call to schedule your appointment Class External referral [5] Comments Please be aware that coverage of these services is subject to the terms and limitations of your health insurance plan. Call member services at your health plan with any benefit or coverage questions. [facility]: [phone] [facility] [phone] [facility]. ([facility]) [phone] Other (external) - Use Comments Please call to schedule your appointment MITE SHOOTER Encounter Details Date Type Department Care Team (Late st Contact Info) Description 06/03/2021 MyC Medical Advice [facility] [address] [place] [address] Madelaine Mitchell DO [address] [place] [address] Anovulation (Primary Dx) Social History Tobacco Use Types Packs/Day Years Used Date Smoking Tobacco: Some Days Cigarettes Smokeless Tobacco: Never Comments:2 to 3 a day Alcohol Use Standard Drinks/Week Comments Yes 0 (1 standard drink = 0.6 oz pur e alcohol) PHQ-2 Answer Date Recorded PHQ-2 Score 1 04/30/2021 Sex and Gender Information Value Date Recorded Sex Assigned at Not on file Gender Identity Not on file Sexual Orientation Not on file documented as of this encounter Plan of Treatment Scheduled Referrals Name Type Priority Associated Diagnoses Orde r Schedule Infertility/AI Referral Referral Routine: Next available opening Anovulation Expected: 06/07/2021 (Approximate), Expires: 06/07/2022 documented as of this encounter Visit Diagnoses Diagnosis Anovulation- Primary Female infertility associated with anovulation documented in this encounter Additional Health Concerns Infection Onset Date Last Indicated Resolved Time Rule Out COVID-19 09/15/2022 09/15/2022 09/15/2022 9:15 AM CDT Assessment Noted Time PHQ-9 Depression Total Score: 10 022 9:03 AM DYNAMITE SHOOTER documented as of this encounter Care Teams Spool Tender Relationship Specialty Start Date End Date Rosamaria Jones MD [address] [place], [place] [address] PCP - General Internal Medicine 10/06/18 11/27/[address] [id number] PCP - General 11/28/23 Madelaine Mitchell DO materials and processes manager 07/26/16 Francesco Merritt MD [address] [place] [address] Family Medicine - Sports Medicine 12/14/18 [place] [address] [place] [address] [place] [address] Assigned PCP 05/09/21 Danielle Alcantar MD [address] [place] [address] Assigned Musculoskeletal Provider 07/18/21 02/03/23 documented as of this encounter
--- OUTSIDE RECORDS SUMMARY | 2023-12-26 14:41 | XMS_ITS | Encounter Summary ---
Author Organization [place] Address [address] [place] [address] Care Team Providers Care Log Feeder Name Role Phone Madelaine Mitchell DO Unavailable [phone] Rosamaria Jones MD Primary Care Provider Francesco Merritt MD Unavailable [phone] Elaina Jiang APRN [facility] Unavailable [phone] Rosamaria Jones MD Unavailable Gabe Carl MD Unavailable [phone] Danielle Alcantar MD Unavailable [facility] Primary Care Provider Encounter Details Date Type Department Care Team (Late st Contact Info) Description 03/14/2021 [facility] Medical Advice [facility] [address] [place] [phone] Madelaine Mitchell DO [address] [facility] [address] [place], [place] [phone] Anovulation (Primary Dx) Social History Tobacco Use Types Packs/Day Years Used Date Smoking Tobacco: Some Days Cigarettes Smokeless Tobacco: Never Comments:2 to 3 a day Alcohol Use Standard Drinks/Week Comments Yes 0 (1 standard drink = 0.6 oz pur e alcohol) PHQ-2 Answer Date Recorded PHQ-2 Score 0 03/28/2018 Sex and Gender Information Value Date Recorded Sex Assigned at Not on file Gender Identity Not on file Sexual Orientation Not on file documented as of this encounter Miscellaneous Notes * Telephone Encounter - Grisel Catalan RN - 03/15/2021 8:46 AM CST Please address the my chart message. Clif Catalan RN LER'S ASSISTANT documented in this encounter Plan of Treatment Not on file documented as of this encounter Visit Diagnoses Diagnosis Anovulation- Primary Female infertility associated with anovulation documented in this encounter Additional Health Concerns Infection Onset Date Last Indicated Resolved Time Rule Out COVID-19 03/31/2021 03/31/2021 03/31/2021 7:10 AM DRILLER'S ASSISTANT Rule Out COVID-19 09/15/2022 09/15/2022 09/15/2022 9:15 AM CDT Assessment Noted Time PHQ-9 Depression Total Score: 10 019 7:03 AM CDT documented as of this encounter Care Teams Log Feeder Relationship Specialty Start Date End Date Rosamaria Jones MD [address] [facility] [address] [place], [place] [address] PCP - General Internal Medicine 10/06/18 11/27/[address] [address] PCP - General 11/28/23 Madelaine Mitchell DO sales and events coordinator 07/26/16 Francesco Merritt MD [facility] [address] [place] [address] Family Medicine - Sports Medicine 12/14/18 Elaina Jiang APRN WOOD MILLING MACHINE OPERATOR [address] [place] [address] Assigned PCP 10/27/19 04/03/21 Rosamaria Jones MD [address] [place] [address] Assigned PCP 04/04/21 05/08/21 Gabe Carl MD [address] [place] [address] VINICI[address] MANNING [address] Assigned PCP 05/09/21 Danielle Alcantar MD [address] [place] [address] Assigned Musculoskeletal Provider 07/18/21 02/03/23 documented as of this encounter
--- OUTSIDE RECORDS SUMMARY | 2023-12-26 14:41 | XMS_ITS | Encounter Summary ---
Author Organization [place] Address [address] [place] [address] Care Team Providers Care Customer Relationship Specialist Name Role Phone Madelaine Mitchell DO Unavailable [phone] Rosamaria Jones MD Primary Care Provider Francesco Merritt MD Unavailable [phone] Gabe Carl MD Unavailable [phone] Danielle Alcantar MD Unavailable [phone] [facility] Primary Care Provider Encounter Details Date Type Department Care Team (Late st Contact Info) Description 07/11/2021 MyC Medical Advice [facility] [address] [place] [address] Madelaine Mitchell DO [address] [place] [address] Social History Tobacco Use Types Packs/Day Years [...] on file Sexual Orientation Not on file COVID-19 Exposure Response Date Recorded In the last month, have you been in contact with someone who was confirmed or suspected to have Coronavirus / COVID-19? No / Unsure 07/13/2021 8:59 AM CDT documented as of this encounter Plan of Treatment Not on file documented as of this encounter Visit Diagnoses Not on filedocumented in this encounter Additional Health Concerns Infection Onset Date Last Indicated Resolved Time Rule Out COVID-19 09/15/2022 09/15/2022 09/15/2022 9:15 AM CDT Assessment Noted Time PHQ-9 Depression Total Score: 10 022 9:03 AM SPEECH CORRECTION CONSULTANT documented as of this encounter Care Teams Customer Relationship Specialist Relationship Specialty Start Date End Date Rosamaria Jones MD [address] [facility] [address] [place] [address] PCP - General Internal Medicine 10/06/18 11/27/[address] [address] PCP - General 11/28/23 Maedlaine Mitchell DO secret code expert 07/26/16 Francesco Merritt MD [address] [place] [address] Family Medicine - Sports Medicine 12/14/18 Gabe Carl MD [address] [place] [address] [place] [address] Assigned PCP 05/09/21 Danielle Alcantar MD [address] [place] [address] Assigned Musculoskeletal Provider 07/18/21 02/03/23 documented as of this encounter
--- OUTSIDE RECORDS SUMMARY | 2023-12-26 14:41 | XMS_ITS | Encounter Summary ---
Author Organization [place] Address [address] [place] [address] Care Team Providers Care Early Childhood Director Name Role Phone Madelaine Mitchell DO Unavailable [phone] Francesco Merritt MD Unavailable [phone] Gabe Carl MD Unavailable [phone] [facility] Primary Care Provider Encounter Details Date Type Department Care Team (Latest Contact Info) Description 11/28/2023 Travel Social History Tobacco Use Types Packs/Day Years [...] filedocumented in this encounter Additional Health Concerns Assessment Noted Time PHQ-9 Depression Total Score: 21 023 10:16 AM CDT documented as of this encounter Care Teams Early Childhood Director Relationship Specialty Start Date End Date [address] [address] PCP - General 11/28/23 Madelaine Mitchell DO instrument tech 07/26/16 Francesco Merritt MD [address] [facility] [address] [place] [address] Family Medicine - Sports Medicine 12/14/18 Gabe Carl MD [address] [facility] [place]ANN[place] [address] Assigned PCP 05/09/21 documented as of this encounter
--- OUTSIDE RECORDS SUMMARY | 2023-12-26 14:41 | XMS_ITS | Referral Summary ---
Author Organization [place] Address [address] [place] [address] Care Team Providers Care Abalone Fisherman Name Role Phone Madelaine Mitchell DO Unavailable [phone] Francesco Merritt MD Unavailable Gabe Carl MD Unavailable [phone] [place] [address] Primary Care Provider Encounters Date Type Department Care Team Description 11/28/2023 Travel 11/28/2023 2:03 PM CDT - 11/28/2023 5:[address] [facility] Emergency Dept [address] [place] [address] [phone] Matt Clements MD Anxiety reaction; Benzodiazepine withdrawal without complication (H) Discharge Disposition: Home or Self Care from Last 3 Months Allergies Active Allergy Reactions Criticality Noted Date [...] (ASTELIN) 0.1 % nasal sprayIndications:Po st-nasal drip [place] 1 spray into both nostrils 2 times daily 1 Bottle 11 10/22/2018 Active metFORMIN (GLUCOPHAGE-XR) 500 MG 24 hr tabletIndications:P COS (polycystic ovarian syndrome) TAKE 4 TABLETS BY MOUTH DAILY 360 tablet 1 04/08/2019 Active nystatin (MYCOSTATIN) 219951 UNIT/ML suspension TAKE 6 ML BY MOUTH [...] Overview: Added automatically from request for surgery [id number] 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 Plan colp 04/25/18 [place] - no visible lesions, no bx. Plan pap due in 1 year pap from previous pap 03/13/19 Pap reminder letter sent. ([facility]) 03/14/19 TE states pt is 25 weeks (ASAD 06/27/19), no appts in chart. ([facility]) CCT tracking Headache 12/16/2016 PCOS (polycystic ovarian [...] L GOAL LESS THAN 160 01/01/2015 04/12/2017 Immunizations Name Administration Dates Next Due DTAP [...] TDAP Vaccine (Adacel) 05/03/2019,10/20/2016,02/16 Yellow Fever 07/26/2006 Social History Tobacco Use Types Packs/Day Years [...] 11/28/2023 12:25 PM CDT Plan of Treatment Not on file Procedures Procedure Name Priority Date/Time Associated Diagnosis [...] TYPES DNA CERVICAL Routine 03/28/2018 9:20 AM CANDY VENDOR PCOS (polycystic ovarian syndrome) PAP IMAGED THIN LAYER SCREEN Routine 03/28/2018 9:09 AM CANDY VENDOR Encounter for general adult medical examination with abnormal findings HIV ANTIGEN ANTIBODY COMBO Routine 05/05/2016 9:51 AM CANDY VENDOR test positive from Last 3 Months or [...] reconstruction technique CHRIS BOONE MD SYSTEM ID: ??[id number] Narrative 11/28/2023 4:[address] ANGIOGRAM [...] reconstruction technique CHRIS BOONE MD SYSTEM ID: [id number] Matt Clements MD IMG CT ORDERABL ES [...] reconstruction technique CHRIS BOONE MD SYSTEM ID: ??[id number] Narrative 11/28/2023 4:[address] OF [...] reconstruction technique CHRIS BOONE MD SYSTEM ID: [id number] Matt Clements MD IMG CT ORDERABL ES [...] 11/28/2023 3:17 PM CDT [facility] [place] Urine 1.017 1.003 - 1.035 11/28/2023 3:17 [...] MD LAB - URINE ORD ERABLES LABORATORY [facility] Acute Care Lab [address] [facility] Lab (1st floor, no room number) [place] [address] * Urine Culture (11/28/2023 2:43 PM CDT) Culture 50,000-100,000 CFU/mL Mixture of urogenital alanna 11/30/2023 1:11 PM CDT [facility] LABORATORY Urine MID-STREAM URINE SPECIMEN / Unknown Non-blood Collection / Unknown 11/28/2023 2:43 PM CDT 11/28/2023 3:13 PM CDT Matt Clements MD LAB - MICRO GEN ERAL ORDERABLES [facility] ID[facility] LABORATORY [facility] Inf. Diseases Diag. Lab [address] [facility], [address] [place] [address] * Extra Red Top Tube (11/28/2023 12:57 PM CDT) Hold Specimen JIC 11/28/2023 2:16 PM CDT [facility] Blood STRUCTURE OF LEFT UPPER LIMB / Unknown Venipuncture / Unknown 11/28/2023 12:57 PM CDT 11/28/2023 1:10 PM CDT Matt Clements MD LAB - BLOOD ORD ERABLES LABORATORY [facility] [address] Lab (1st floor, no room number) [place] [address] * Extra Blue Top Tube (11/28/2023 12:57 PM CDT) Hold Specimen JIC 11/28/2023 2:16 PM CDT [facility] Blood STRUCTURE OF LEFT UPPER LIMB / Unknown Venipuncture / Unknown 11/28/2023 12:57 PM CDT 11/28/2023 1:10 PM CDT Matt Clements MD LAB - BLOOD ORD ERABLES LABORATORY [facility] [address] Lab (1st floor, no room number) [place] [address] * CBC with platelets and differential (11/28/2023 [...] MD LAB - BLOOD ORD ERABLES LABORATORY [facility] Acute [facility] Lab [address] [facility] Lab (1st floor, no room number) [place] [address], [facility] * Troponin T, High Sensitivity (11/28/2023 12:57 [...] Clements MD LAB - BLOOD ORD ERABLES [facility] Acute Care Lab [address] [facility] Lab (1st floor, no room number) [place] [phone] [place] [address] * TSH with free T4 reflex (11/28/2023 12:57 PM CDT) Pathologist [facility] TSH 0.42 0.30 - 4.20 uIU/mL 11/28/2023 2:42 PM CDT LABORATORY Blood STRUCTURE OF LEFT UPPER LIMB / Unknown Venipuncture / Unknown 11/28/2023 12:57 PM CDT 11/28/2023 1:10 PM CDT Matt Clements MD LAB - BLOOD ORD ERABLES [facility] Acute Care Lab [address] Lab (1st floor, no room number) [place] [address] * Magnesium (11/28/2023 12:57 PM CDT) [facility] Magnesium 2.0 1.7 - 2.3 mg/dL 11/28/2023 2:31 PM CDT [facility] Blood STRUCTURE OF LEFT UPPER LIMB / Unknown Venipuncture / Unknown 11/28/2023 12:57 PM CDT 11/28/2023 1:10 PM CDT Matt Clements MD LAB - BLOOD ORD ERABLES Performing Organization Address [facility]/ZIP Co de Phone Number LABORATORY [facility] [address] Lab (1st floor, no room number) [place] [phone] * HCG qualitative Blood (11/28/2023 12:57 PM CDT) [facility] hCG Serum Qualitative Negative Negative HERMILO 11/28/2023 2:33 PM CDT [facility] Comment:This test is for scr eening purposes. Results should be interpreted along with the clinical picture. Confirmation testing is available if warranted by ordering [id number], HCG Quantitative . Blood STRUCTURE OF LEFT UPPER LIMB / Unknown Venipuncture / Unknown 11/28/2023 12:57 PM CDT 11/28/2023 1:10 PM CDT Matt Clements MD LAB - BLOOD ORD ERABLES Performing Organization Address [facility]/RUST Co de Phone Number LABORATORY [facility] [address] Lab (1st floor, no room number) [place] [phone] * (ABNORMAL) Basic metabolic panel (11/28/2023 12:57 PM CDT) [facility] Sodium 138 135 - 145 mmol/L 11/28/2023 [...] MD LAB - BLOOD ORD ERABLES LABORATORY [facility] [address] [facility] Lab (1st floor, no room number) [place] [address] * EKG 12-lead, tracing only (11/28/2023 12:43 PM CDT) Systolic Blood Pressure mmHg RADIOLOGY RESULTS Diastolic Blood Pressure mmHg RADIOLOGY RESULTS Ventricular Rate 70 BPM RAD IOLOGY RESULTS Atrial Rate 70 BPM RADIOLOG Y RESULTS RI Interval 156 ms RADIOLOG Y RESULTS QRS Duration 88 ms RADIOLO GY RESULTS QT 388 ms RADIOLOGY RESULTS QTc 419 ms RADIOLOGY RESULTS P [place] 12 degrees RADIOLOGY RESULTS R AXIS 35 degrees RADIOLOGY RESULTS T [place] 6 degrees RADIOLOGY RESULTS Interpretation ECG Sinus rhythm Normal ECG When compared with ECG of 15-Sep-2022 08:14, No significant change was found Unconfirmed report - interpretation of this ECG is computer generated - see medical record for final interpretation Confirmed by - EMERGENCY ROOM, PHYSICIAN ([id number]), content editor José Olsen ([id number]) on 11/28/2023 2:10:41 PM RADIOLOGY RESULTS 11/28/2023 12:4 3 PM CDT 11/28/2023 2:10 PM CDT Matt Clements MD ECG ORDERABLES RADIOLOGY RESULTS * (ABNORMAL) HPV High Risk Types DNA Cervical (03/28/2018 9:20 AM CANDY VENDOR) HPV Source SurePath 04/03/2018 7:38 AM CANDY VENDOR [facility] HPV 16 DNA Negative NEG^Nega tive 04/03/2018 4:18 PM CANDY VENDOR [facility] HPV 18 DNA Negative NEG^Nega tive 04/03/2018 4:18 PM CANDY VENDOR [facility] Other HR HPV Positive(A) NEG^Nega tive 04/03/2018 4:18 PM CANDY VENDOR [facility] Final Diagnosis This patient's sample is positive for other HR HPV DNA (types 31, 33, 35, 39, 45, 51, 52, 56, 58, 59, 66 or 68), not HPV 16 or HPV 18 DNA. This result requires clinical correlation with concurrent cytology findings. 04/03/2018 4:18 PM [facility] Comment: This test was developed and its performance characteristics determined by the [facility], Molecular Diagnostics Laboratory. It has not been [...] Specimen Description Cervical Cells 04/03/2018 7:38 AM CANDY VENDOR [facility] Comment:[id number] 03/28/2018 9:20 AM CANDY VENDOR 03/28/2018 2:56 PM CANDY VENDOR Tristen Jiang CONE MACHINE FEEDER VOICE ENGINEER LAB - BLOOD ORDERABLES [facility] [address] [place] [address] * (ABNORMAL) Pap imaged thin layer screen reflex to HPV if ASCUS - recommend age 25 - 29 (03/28/2018 9:09 AM CANDY VENDOR) PAP ASC-US(A) JOSE JUAN Singh Report Patient Name: MADI MOSS MR#: [id number] Specimen #: [id number] Collected: 03/28/2018 Received: 03/29/2018 Reported: 04/02/2018 14:41 [...] Carmine Stevens M.D. Processed and screened at [facility] CLINICAL HISTORY: LMP: 03/05/2018 A previous normal pap Date of Last Pap: 01/01/2015, Papanicolaou Test Limitations: ??Cervical cytology is a screening test with limited sensitivity; regular screening is critical for cancer prevention; Pap tests are primarily effective for the diagnosis/preventi on of squamous cell carcinoma, not adenocarcinomas or other cancers. TESTING LAB LOCATION: [facility] [place] [address] [place], [place] ??[address] COLLECTION SITE: Client: ??[facility] Location: RIIM (R) COPATH Cytologic material (specimen) 03/28/2018 9:09 AM CANDY VENDOR 03/29/2018 11:25 AM CANDY VENDOR Tristen Jiang CONE MACHINE FEEDER VOICE ENGINEER LAB - OPTIME CLINICAL SPECIMEN COPATH * HIV Antigen Antibody Combo (05/05/2016 9:51 AM CANDY VENDOR) HIV Antigen Antibody Combo Nonreactive HIV-1 p24 Ag & HIV-1/HIV-2 Ab Not Detected NR [facility] Blood specimen (specimen) 05/05/2016 9:51 AM CANDY VENDOR 05/05/2016 9:56 AM CANDY VENDOR Madelaine Mitchell DO LAB - BLOOD ORDER MENDEZ [facility] [address] from Last 3 Months or Most Recently Relevant to Health Maintenance Care Teams Abalone Fisherman Relationship Specialty Start Date End Date [facility], [address] [address] PCP - General 11/28/23 Madelaine Mitchell DO webfocus developer 07/26/16 Francesco Merritt MD [address] [place] [address] Family Medicine - Sports Medicine 12/14/18 Gabe Carl MD [address] [facility] [place] [address] Assigned PCP 05/09/21
--- OUTSIDE RECORDS SUMMARY | 2023-12-26 14:41 | XMS_ITS | Encounter Summary ---
Author Organization [place] Address [address] [place] [address]. [place] [address] Care Team Providers Care Escalation Engineer Name Role Phone Madelaine Mitchell DO Unavailable [phone] Rosamaria Jones MD Primary Care Provider [phone] Francesco Merritt MD Unavailable [phone] Gabe Carl MD Unavailable [phone] Danielle Alcantar MD Unavailable [phone] [facility] Primary Care Provider Encounter Details Date Type Department Care Team (Late st Contact Info) Description 08/27/2021 MyC Medical Advice [facility] Services [address] 5[address] [place] [address] Danielle Wright, PT [address] [address] Social History Tobacco Use Types Packs/Day Years [...] Exposure Response Date Recorded In the last 10 days, have yo u been in contact with someone who was confirmed or suspected to have Coronavirus/COVID-19? Yes 08/23/2021 10:14 PM CDT documented as of this encounter Plan of Treatment Not on file documented as of this encounter Visit Diagnoses Not on filedocumented in this encounter Additional Health Concerns Infection Onset Date Last Indicated Resolved Time Rule Out COVID-19 09/15/2022 09/15/2022 09/15/2022 9:15 AM CDT Assessment Noted Time PHQ-9 Depression Total Score: 022 9:03 AM FINANCIAL WELLNESS COACH documented as of this encounter Care Teams Escalation Engineer Relationship Specialty Start Date End Date Rosamaria Jones MD [address] [facility] [address] [place] [address] PCP - General Internal Medicine 10/06/18 11/27/[address] [address] PCP - General 11/28/23 Madelaine Mitchell DO advanced manufacturing consultant 07/26/16 Francesco Merritt MD [address] [place] [address] Family Medicine - Sports Medicine 12/14/18 Gabe Carl MD [address] [place] [address] [place] [address] Assigned PCP 05/09/21 Danielle Alcantar MD [address] [place] [address] Assigned Musculoskeletal Provider 07/18/21 02/03/23 documented as of this encounter
--- OUTSIDE RECORDS SUMMARY | 2023-12-26 14:41 | XMS_ITS | Encounter Summary ---
Author Organization [place] Address [address] [place] [address] Care Team Providers Care Airline Manager Name Role Phone Stephen Madelaine Garcia DO Unavailable [phone] Rosamaria Jones MD Primary Care Provider [facility] Unavailable Elaina Jiang APRN [facility] Unavailable [phone] Rosamaria Jones MD Unavailable Gabe Carl MD Unavailable [phone] Danielle Alcantar MD Unavailable [phone] [facility] Primary Care Provider Encounter Details Date Type Department Care Team (Late st Contact Info) Description 03/28/2021 Documentation Only INTERFACED REPORT Unknown, Provider Social History Tobacco Use Types Packs/Day Years [...] have Coronavirus / COVID-19? No / Unsure 03/31/2021 6:25 AM HINGING MACHINE OPERATOR documented as of this encounter Plan of Treatment Not on file documented as of this encounter Visit Diagnoses Not on filedocumented in this encounter Additional Health Concerns Infection Onset Date Last Indicated Resolved Time Rule Out COVID-19 03/31/2021 03/31/2021 03/31/2021 7:10 AM HINGING MACHINE OPERATOR Rule Out COVID-19 09/15/2022 09/15/2022 09/15/2022 9:15 AM CDT Assessment Noted Time PHQ-9 Depression Total Score: 10 019 7:03 AM CDT documented as of this encounter Care Teams Airline Manager Relationship Specialty Start Date End Date Rosamaria Jones MD [address] [id number] PCP - General Internal Medicine 10/06/18 11/27/[address] [address] PCP - General 11/28/23 Madelaine Mitchell DO grade and center marker 07/26/16 Francesco Merritt MD [address] [place] [address] Family Medicine - Sports Medicine 12/14/18 Elaina Jiang APRN CNP [address] [place] [address] Assigned PCP 10/27/19 04/03/21 Rosamaria Jones MD [address] [address] Assigned PCP 04/04/21 05/08/21 Gabe Carl MD [address] [place] [address] [place] [address] Assigned PCP 05/09/21 Danielle Alcantar MD [address] [place] [address] Assigned Musculoskeletal Provider 07/18/21 02/03/23 documented as of this encounter
--- OUTSIDE RECORDS SUMMARY | 2023-12-26 14:41 | XMS_ITS | Encounter Summary ---
Author Organization [facility] Address [address] [place] [address]. [place] [address] Care Team Providers Care Station Inspector Name Role Phone Madelaine Mitchell DO Unavailable [phone] Francesco Merritt MD Unavailable [phone] Gabe Carl MD Unavailable [phone] [place] [address] Primary Care Provider Reason for Visit * Reason Comments Chest Pain Encounter Details Date Type Department Care Team (Late st Contact Info) Description 11/28/2023 2:03 PM CDT - 11/28/2023 5:[address] [facility] Emergency Dept [address] [place] [address] [phone] Matt Clements MD [address] [place] [address] Anxiety reaction; Benzodiazepine withdrawal without complication (H) Discharge Disposition: Home or Self Care Social History Tobacco Use Types Packs/Day Years [...] on file documented as of this encounter Last Filed Vital Signs Vital Sign Reading [...] Mass Index 35.18 11/28/2023 12:25 PM CDT documented in this encounter Discharge Instructions * Discharge Instructions* Matt Clements MD - 11/28/2023 5:03 PM CDT Do not use metformin for the next 48 hours as this can interact with the dye used for the CT scan. Return to the ER for any new or worsening symptoms. You should plan to taper down from lorazepam slowly. You should plan to go down by 0.5 mg/week at most. documented in this encounter Medications at Time of Discharge Medication Sig Dispensed Refills Start Date End Date azelastine (ASTELIN) 0.1 % nasal sprayIndications:Post- nasal drip [place] 1 spray into both nostrils 2 times daily 1 Bottle 11 10/22/2018 BIOTIN PO diazepam (VALIUM) 2 MG tablet 1 TABLET BY MOUTH NIGHTLY FOR 14 NIGHTS, THEN DISCONTINUE. 06/22/2021 hydrOXYzine (ATARAX) 25 MG tablet Take 25 mg by mouth 3 times daily as needed for itching ibuprofen (ADVIL/MOTRIN) 200 MG tablet Take 3 tablets (600 mg) by mouth every 8 hours as needed for mild pain 1 tablet 12/24/2020 letrozole (FEMARA) 2.5 MG tabletIndications:Anov ulation Take 1 tablet (2.5 mg) by mouth See Admin Instructions 35 tablet 03/18/2021 loratadine (CLARITIN) 10 MG tablet Take 10 mg by mouth daily metFORMIN (GLUCOPHAGE-XR) 500 MG 24 hr tabletIndications:PCOS (polycystic ovarian syndrome) TAKE 4 TABLETS BY MOUTH DAILY 360 tablet 1 04/08/2019 methocarbamol (ROBAXIN) 500 MG tabletIndications:Trap ezius muscle spasm,Left arm numbness Take 1-2 tablets (500-1,000 mg) by mouth 4 times daily as needed for muscle spasms 20 tablet 04/30/2021 nystatin (MYCOSTATIN) 097657 UNIT/ML suspension TAKE 6 ML BY MOUTH FOUR TIMES A DAY SWISH IN MOUTH AND SWALLOW. KEEP IN MOUTH LONG POSSIBLE PRIOR TO SWALLOWING. 01/31/2020 oxyCODONE (ROXICODONE) 5 MG tablet Take 1 tablet (5 mg) by mouth every 6 hours as needed for pain 6 tablet 12/24/2020 PARoxetine (PAXIL) 20 MG tablet Take 20 mg by mouth At Bedtime Vit-Fe Fumarate-FA ( MULTIVITAMIN PLUS IRON) 27-0.8 MG TABS Take 1 tablet by mouth daily Probiotic Product (ACIDOPHILUS PROBIOTIC BLEND PO) prochlorperazine (COMPAZINE) 10 MG tablet Take 1 tablet (10 mg) by mouth every 6 hours as needed for nausea or vomiting 20 tablet 03/31/2021 documented as of this encounter ED Notes * Matt Clements MD - 11/28/2023 2:07 PM CDT Emergency Department Note History of Present Illness Chief Complaint Chest Pain HPI Neda Moss is a 33 year old female with history of anxiety who presents to the ED with a sensation of palpitations, anxiety, generalized weakness, and at times intermittent chest discomfort. She had a headache earlier in the day. The patient has a history of using lorazepam 2 mg/day for at least the last year. She had an appointment recently with her physician who advised her to taper down slowly. She says she was not provided any other instructions on her tapering schedule and infectioustaper down fairly quickly. Over the last week she has gone from 2 mg a day to approximately 0.75 mg/day. Her symptoms coincided with the onset of her taper. No syncope. She denies any fever, cough, congestion. She says at times she gets blurred vision but has no loss of vision. She also stopped hermetformin which she uses for PCOS. She says she lost it about a week ago. She is getting a refill through her pharmacy. She was given Ambien to use for sleep instead of lorazepam feels that she does not tolerate this well and it does not help her sleep. Review of External Notes [facility] notes reviewed from 12/14/2023. The patient is followed for pituitary adenoma. Past Medical History Medical History and Problem List Frequent UTI Gastritis Depression PCOS Anxiety Mononucleosis Shingles Carcinoid tumor of right lung Pre-diabetes Exercise-induced asthma Arthritis Medications Buspar Metformin Relafen [place] Flexeril Ativan Albuterol Ambien Robaxin Vistaril Roxicodone Senokot Surgical History Colposcopy Colonoscopy Knee surgery Bilateral Lasik Open reduction internal fixation left patella Upper GI endoscopy Robotic assisted bronchoscopy Robotic assisted vats right lung resection, thoracic lymphadenectomy Physical Exam Patient Vitals for the past 24 hrs: BP Temp Temp src Pulse Resp SpO2 Height Weight 11/28/23 1710 (!) 149/97 -- -- 86 18 100 % -- -- 11/28/23 1407 (!) 167/130 -- -- 94 -- 100 % -- -- 11/28/23 1227 (!) 154/99 97.6 ??F (36.4 ??C) Oral 73 18 96 % -- -- 11/28/23 1225 -- -- -- -- -- -- 1.651 m (5' 5) 95.9 kg (211 lb 6.7 oz) Physical Exam Constitutional: General: She is not in acute distress. Appearance: Normal appearance. She is not diaphoretic. HENT: Head: Atraumatic. Right Ear: Tympanic membrane, ear canal and external ear normal. Left Ear: Tympanic membrane, ear canal and external ear normal. Mouth/Throat: Mouth: Mucous membranes are moist. Eyes: General: No scleral icterus. Conjunctiva/sclera: Conjunctivae normal. Pupils: Pupils are equal, round, and reactive to light. Comments: There is a medial pterygium of the left eye. Extraocular movements otherwise intact. Pupils equal round reactive to light. No orbital swelling or ecchymosis. Cardiovascular: Rate and Rhythm: Normal rate and regular rhythm. Heart sounds: Normal heart sounds. Pulmonary: Effort: No respiratory distress. Breath sounds: Normal breath sounds. Abdominal: General: Abdomen is flat. There is no distension. Tenderness: There is no abdominal tenderness. Musculoskeletal: Cervical back: Neck supple. Right lower leg: No edema. Left lower leg: No edema. Skin: General: Skin is warm. Capillary Refill: Capillary refill takes less than 2 seconds. Findings: No rash. Neurological: General: No focal deficit present. Mental Status: She is alert and oriented to person, place, and time. Psychiatric: Comments: The patient appears jittery and anxious. She is tearful at times. Diagnostics Lab Results Labs Ordered and Resulted from Time of ED Arrival to Time of ED Departure BASIC METABOLIC PANEL - Abnormal Result Value Sodium 138 Potassium 4.1 Chloride 102 Carbon Dioxide (CO2) 22 Anion Gap 14 Urea Nitrogen 16.6 Creatinine 0.71 GFR Estimate >90 Calcium 9.3 Glucose 114 (*) ROUTINE UA WITH MICROSCOPIC REFLEX TO CULTURE - Abnormal Color Urine Light Yellow Appearance Urine Slightly Cloudy (*) Glucose Urine Negative Bilirubin Urine Negative Ketones Urine Negative Specific [place] Urine 1.017 Blood Urine Negative pH Urine 6.5 Protein Albumin Urine Negative Urobilinogen Urine Normal Nitrite Urine Negative Leukocyte Esterase Urine Moderate (*) Mucus Urine Present (*) RBC Urine 3 (*) WBC Urine 5 Squamous Epithelials Urine 10 (*) TROPONIN T, HIGH SENSITIVITY - Normal Troponin T, High Sensitivity <6 MAGNESIUM - Normal Magnesium 2.0 TSH WITH FREE T4 REFLEX - Normal TSH 0.42 HCG QUALITATIVE - Normal hCG Serum Qualitative Negative CBC WITH PLATELETS AND DIFFERENTIAL WBC Count 7.3 RBC Count 4.31 Hemoglobin 13.5 Hematocrit 40.4 MCV 94 MCH 31.3 MCHC 33.4 RDW 12.6 Platelet Count 228 % Neutrophils 70 % Lymphocytes 24 % Monocytes 4 % Eosinophils 2 % Basophils 0 % Immature Granulocytes 0 NRBCs per 100 WBC 0 Absolute Neutrophils 5.1 Absolute Lymphocytes 1.7 Absolute Monocytes 0.3 Absolute Eosinophils 0.2 Absolute Basophils 0.0 Absolute Immature Granulocytes 0.0 Absolute NRBCs 0.0 URINE CULTURE Imaging CTA Head Neck w Contrast Final Result IMPRESSION: Normal neck and head CTA. Radiation dose for this scan was reduced using automated exposure control, adjustment of the mA and/or kV according to patient size, or iterative reconstruction technique CHRIS BOONE MD SYSTEM ID: [id number] CT Head w/o Contrast Final Result IMPRESSION: Normal head CT. Radiation dose for this scan was reduced using automated exposure control, adjustment of the mA and/or kV according to patient size, or iterative reconstruction technique CHRIS BOONE MD SYSTEM ID: [id number] EKG ECG taken at 1243, ECG read at 1415 Normal sinus rhythm No significant change as compared to prior, dated 09/15/22. Rate 70 bpm. MA interval 156 ms. QRS duration 88 ms. QT/QTc 388/419 ms. P-R-T axes 12 35 6. ED Course Medications Administered Medications sodium chloride 0.9% BOLUS 1,000 mL (0 mLs Intravenous Stopped 11/28/23 1706) hydrOXYzine HCl (ATARAX) tablet 25 mg (25 mg Oral $Given 11/28/23 1433) iopamidol (ISOVUE-370) solution 500 mL (67 mLs Intravenous $Given 11/28/23 1550) CT Scan Flush (80 mLs Intravenous $Given 11/28/23 1550) ED Course ED Course as of 11/28/232006Nov 28, 2023 1407 I obtained history and examined the patient as noted above. Medical Decision Making / Diagnosis MDM Neda Moss is a 33 year old female who presents to the emergency department for evaluation ofanxiety and palpitations. This likely is related to a taper of her lorazepam too quickly. Her workup overall is reassuring that she is hemodynamically stable. She was advised to taper her lorazepam no more than 0.5 mg/week. This would bring her down in her taper over the course of a month. In addition she is to contact her clinic to arrange close follow-up. Disposition The patient was discharged. Diagnosis ICD-10-CM 1. Anxiety reaction F41.1 2. Benzodiazepine withdrawal without complication (H) F13.930 Scribe Disclosure: GUERA Allred, am serving as a scribe at 2:09 PM on 11/28/2023 to document services personally performed by Matt Clements MD based on my observations and the provider's statements to me. Matt Clements MD 11/28/232006 * Sara Loo RN - 11/28/2023 12:25 PM CDT Pt arrives with complaint of chest heaviness, feels near syncopal, nauseous, headache, redness to inner corner of left eye. Pt also says she lost her metformin, currently being tapered off of her ativan for her anxiety. A&Ox4. documented in this encounter Miscellaneous Notes * Result Encounter Note - John Hernandes RN - 11/28/2023 5:34 PM CDT Final urine culture report is negative. Adult: Negative urine culture parameters per protocol: Any # urogenital alanna, single or mixed [facility] Emergency Dept discharge antibiotic prescribed (If applicable): None Treatment recommendations per [facility] ED Lab Result Urine Culture protocol: No change in plan of care. documented in this encounter Plan of Treatment Not on file documented as of this encounter Procedures Procedure Name Priority Date/Time Associated Diagnosis Comments CTA HEAD NECK W CONTRAST STAT 11/28/2023 4:[address] HEAD W/O CONTRAST STAT 11/28/2023 3:58 PM CDT ROUTINE UA WITH MICROSCOPIC REFLEX TO CULTURE STAT 11/28/2023 2:43 PM CDT URINE CULTURE STAT 11/28/2023 2:43 PM CDT EXTRA TUBE STAT 11/28/2023 12:57 PM CDT EXTRA RED TOP TUBE STAT 11/28/2023 12 :57 PM CDT EXTRA BLUE TOP TUBE STAT 11/28/2023 1 2:57 PM CDT CBC WITH PLATELETS AND DIFFERENTIAL STAT 11/28/2023 12:57 PM CDT TROPONIN T, HIGH SENSITIVITY STAT 11/28/2023 12:57 PM CDT CBC WITH PLATELETS & DIFFERENTIAL STAT 11/28/2023 12:57 PM CDT TSH WITH FREE T4 REFLEX STAT 11/28/2023 12:57 PM CDT MAGNESIUM STAT 11/28/2023 12:57 PM CDT HCG QUALITATIVE STAT 11/28/2023 12:57 PM CDT BASIC METABOLIC PANEL STAT 11/28/2023 12:57 PM CDT EKG 12-LEAD, TRACING ONLY STAT 11/28/2023 12:43 PM CDT documented in this encounter Results * CTA Head Neck w Contrast [...] reconstruction technique CHRIS BOONE MD SYSTEM ID: [id number] Narrative 11/28/2023 4:[address] ANGIOGRAM [...] reconstruction technique CHRIS BOONE MD SYSTEM ID: [id number] Matt Clements MD IMG CT ORDERABL ES [...] reconstruction technique CHRIS BOONE MD SYSTEM ID: ??[id number] Narrative 11/28/2023 4:[address] OF [...] reconstruction technique CHRIS BOONE MD SYSTEM ID: [id number] Matt Clements MD IMG CT ORDERABL ES * Urine Culture (11/28/2023 2:43 PM CDT) Culture 50,000-100,000 CFU/mL Mixture of urogenital alanna 11/30/2023 1:11 PM CDT [facility] Urine MID-STREAM URINE SPECIMEN / Unknown Non-blood Collection / Unknown 11/28/2023 2:43 PM CDT 11/28/2023 3:13 PM CDT Matt Clements MD LAB - MICRO GEN ERAL ORDERABLES [facility] Inf. Diseases Diag. Lab [address] [facility], [address] [place] [address] * (ABNORMAL) UA with Microscopic reflex to Culture (11/28/2023 2:43 PM CDT) Color Urine Light Yellow Colorless, Straw, Light Yellow, Yellow 11/28/2023 3:17 PM CDT LABORATORY Appearance Urine Slightly Cloudy(A) Clear 11/28/2023 3:17 PM CDT [facility] Glucose Urine Negative Negative mg/dL 11/28/2023 3:17 PM CDT [facility] Bilirubin Urine Negative Negative 3:17 PM CDT [facility] Ketones Urine Negative Negative mg/dL 11/28/2023 3:17 PM CDT LABORATORY Specific [place] Urine 1.017 1.003 - 1.035 11/28/2023 3:17 PM CDT LABORATORY Blood Urine Negative Negative 11/28/2023 3:17 PM CDT LABORATORY pH Urine 6.5 5.0 - 7.0 11/28/2023 3:17 PM CDT LABORATORY Protein Albumin Urine Negative Negative mg/dL 11/28/2023 3:17 PM CDT LABORATORY Urobilinogen Urine Normal Normal, 2.0 mg/dL 11/28/2023 3:17 PM CDT LABORATORY Nitrite Urine Negative Negative 11/28/2023 3:17 PM CDT LABORATORY Leukocyte Esterase Urine Moderate(A) Negative 11/28/2023 3:17 PM CDT LABORATORY Mucus Urine Present(A) None Seen /LPF 11/28/2023 3:17 PM CDT LABORATORY RBC Urine 3(H) <=2 /HPF 11/28/2023 3:17 PM CDT LABORATORY WBC Urine 5 <=5 /HPF 11/28/2023 3:17 PM CDT LABORATORY Squamous Epithelials Urine 10(H) <=1 /HPF 11/28/2023 3:17 PM CDT LABORATORY Urine MID-STREAM URINE SPECIMEN / Unknown Non-blood Collection / Unknown 11/28/2023 2:43 PM CDT 11/28/2023 2:48 PM CDT Narrative [facility] - 11/28/2023 3:17 PM CDT Urine Culture ordered based on laboratory criteria Matt Edward Tyree MD LAB - URINE ORD ERABLES [facility] [address] Lab (1st floor, no room number) [place] [phone] * HCG qualitative Blood (11/28/2023 12:57 PM CDT) hCG Serum Qualitative Negative Negative HERMILO 11/28/2023 2:33 PM CDT LABORATORY Comment:This test is for scr eening purposes. Results should be interpreted along with the clinical picture. Confirmation testing is available if warranted by ordering [id number], HCG Quantitative . Blood STRUCTURE OF LEFT UPPER LIMB / Unknown Venipuncture / Unknown 11/28/2023 12:57 PM CDT 11/28/2023 1:10 PM CDT Matt Clements MD LAB - BLOOD ORD ERABLES Performing Organization Address [facility]/ZIP Co de Phone Number [facility] [address] Lab (1st floor, no room number) [place] [phone] * TSH with free T4 reflex (11/28/2023 12:57 PM CDT) Pathologist [facility] TSH 0.42 0.30 - 4.20 uIU/mL 11/28/2023 2:42 PM CDT LABORATORY Blood STRUCTURE OF LEFT UPPER LIMB / Unknown Venipuncture / Unknown 11/28/2023 12:57 PM CDT 11/28/2023 1:10 PM CDT Matt Clements MD LAB - BLOOD ORD ERABLES [facility] [address] Lab (1st floor, no room number) [place] [id number] * Magnesium (11/28/2023 12:57 PM CDT) Pathologist [facility] Magnesium 2.0 1.7 - 2.3 mg/dL 11/28/2023 2:31 PM CDT [facility] Blood STRUCTURE OF LEFT UPPER LIMB / Unknown Venipuncture / Unknown 11/28/2023 12:57 PM CDT 11/28/2023 1:10 PM CDT Matt Clements MD LAB - BLOOD ORD ERABLES [facility] Lab [address] Lab (1st floor, no room number) [place] [address], [place] * Extra Red Top Tube (11/28/2023 12:57 PM CDT) Hold Specimen C 11/28/2023 2:16 PM CDT [facility] Blood STRUCTURE OF LEFT UPPER LIMB / Unknown Venipuncture / Unknown 11/28/2023 12:57 PM CDT 11/28/2023 1:10 PM CDT Matt Clements MD LAB - BLOOD ORD ERAINDIRA [facility] [address] Lab (1st floor, no room number) [place] [phone] [place] [address] * Extra Blue Top Tube (11/28/2023 12:57 PM CDT) Hold Specimen JIC 11/28/2023 2:16 PM CDT [facility] Blood STRUCTURE OF LEFT UPPER LIMB / Unknown Venipuncture / Unknown 11/28/2023 12:57 PM CDT 11/28/2023 1:10 PM CDT Matt Clements MD LAB - BLOOD ORD ERABLES [facility] [address] Lab (1st floor, no room number) [place] [address] * CBC with platelets and [...] MD LAB - BLOOD ORD ERABLES LABORATORY [facility] Acute Care Lab [address] Lab (1st floor, no room number) [place] [address], [facility] * Troponin T, High Sensitivity (11/28/2023 12:57 PM CDT) [facility] Troponin T, High Sensitivity <6 <=14 ng/L [...] MD LAB - BLOOD ORD ERABLES LABORATORY [facility] Care Lab [address] Lab (1st floor, no room number) [place] [address], [facility] * (ABNORMAL) Basic metabolic panel (11/28/2023 12:57 PM CDT) Sodium 138 135 - 145 mmol/L 11/28/2023 [...] - 99 mg/dL 11/28/2023 1:32 PM CDT [facility] Blood STRUCTURE OF LEFT UPPER LIMB / Unknown Venipuncture / Unknown 11/28/2023 12:57 PM CDT 11/28/2023 1:10 PM CDT Matt Clements MD LAB - BLOOD ORD ERABLES LABORATORY [facility] Acute Care Lab [address] Lab (1st floor, no room number) [place] [address], [facility] * EKG 12-lead, tracing only (11/28/2023 12:43 PM CDT) Systolic Blood Pressure mmHg RADIOLOGY RESULTS Diastolic Blood Pressure mmHg RADIOLOGY RESULTS Ventricular Rate 70 BPM RAD IOLOGY RESULTS Atrial Rate 70 BPM RADIOLOG Y RESULTS MA Interval 156 ms RADIOLOG Y RESULTS QRS Duration 88 ms RADIOLO GY RESULTS QT 388 ms RADIOLOGY RESULTS QTc 419 ms RADIOLOGY RESULTS P [place] 12 degrees RADIOLOGY RESULTS R AXIS 35 degrees RADIOLOGY RESULTS T [place] 6 degrees RADIOLOGY RESULTS Interpretation ECG Sinus rhythm Normal ECG When compared with ECG of 15-Sep-2022 08:14, No significant change was found Unconfirmed report - interpretation of this ECG is computer generated - see medical record for final interpretation Confirmed by - EMERGENCY ROOM, PHYSICIAN ([id number]), film editor supervisor José Olsen ([id number]) on 11/28/2023 2:10:41 PM RADIOLOGY RESULTS 11/28/2023 12:4 3 PM CDT 11/28/2023 2:10 PM CDT Matt Clements MD ECG ORDERABLES RADIOLOGY RESULTS documented in this encounter Visit Diagnoses Diagnosis Anxiety reaction Anxiety state, unspecified Benzodiazepine withdrawal without complication (H) documented in this encounter Administered Medications Inactive Administered Medications - up to 3 most recent administrations Medication Order MAR Action Action Date Dose Rate Site CT Scan Flush Intravenous, 100 mL, ONCE, On Mon11/28/23 at 1550, For 1 dose, This entry is for use by Radiology to intermittently used as a flush in patients receiving a CT scan. $Given 11/28/2023 3:50 PM CDT 80 mLs hydrOXYzine HCl (ATARAX) tablet 25 mg 25 mg, Oral, ONCE, On Mon11/28/23 at 1420, For 1 dose $Given 11/28/2023 2:33 PM CDT 25 mg iopamidol (ISOVUE-370) solution 500 mL 500 mL, Intravenous, ONCE, On Mon11/28/23 at 1550, For 1 dose $Given 11/28/2023 3:50 PM CDT 67 mLs sodium chloride 0.9% BOLUS 1,000 mL Intravenous, 1,000 mL, ONCE, at 1,000 mL/hr, Administer over 1 Hours, On Mon11/28/23 at 1420, For 1 dose $New Bag 11/28/2023 2:53 PM CDT 1,000 mLs 1000 mL/hr documented in this encounter Active and Recently Administered Medications Times are shown in CDT. Scheduled Medication Order 11/26/2023 11/27/2023 11/28/2023 CT Scan Flush (COMPLETED) Intravenous, 100 mL, ONCE, On Mon11/28/23 at 1550, For 1 dose, This entry is for use by Radiology to intermittently used as a flush in patients receiving a CT scan. 1550 ($Given - Provi vidhi: Abbey Dior) hydrOXYzine HCl (ATARAX) tablet 25 mg (COMPLETED) 25 mg, Oral, ONCE, On Mon11/28/23 at 1420, For 1 dose 1433 ($Given - Provi vidhi: Marybel Ramirez RN) iopamidol (ISOVUE-370) solution 500 mL (COMPLETED) 500 mL, Intravenous, ONCE, On Mon11/28/23 at 1550, For 1 dose 1550 ($Given - Provi vidhi: Abbey Dior) sodium chloride 0.9% BOLUS 1,000 mL (COMPLETED) Intravenous, 1,000 mL, ONCE, at 1,000 mL/hr, Administer over 1 Hours, On Mon11/28/23 at 1420, For 1 dose 1453 ($New Bag - Pro vider: Marybel Ramirez RN)[id number] (Stopped - Provider: Sara Loo RN) documented in this encounter Additional Health Concerns Assessment Noted Time PHQ-9 Depression Total Score: 21 023 10:16 AM CDT documented as of this encounter Care Teams Station Inspector Relationship Specialty Start Date End Date [facility], [address] [address] PCP - General 11/28/23 Madelaine Mitchell DO conduit installer 07/26/16 Francesco Merritt MD [address] [facility] [address] [place] [address] Family Medicine - Sports Medicine 12/14/18 Gabe Carl MD [address] [facility] [place] [address] Assigned PCP 05/09/21 documented as of this encounter
--- OUTSIDE RECORDS SUMMARY | 2023-12-26 14:41 | XMS_ITS | Encounter Summary ---
Author Organization [facility] Address [address] [place] [address]. [place] [address] Care Team Providers Care Supervisor [employer] Name Role Phone Madelaine Mitchell DO Unavailable [phone] Rosamaria Jones MD Primary Care Provider Francesco Merritt MD Unavailable Gabe Carl MD Unavailable [phone] Danielle Alcantar MD Unavailable [phone] [facility] Primary Care Provider Encounter Details Date Type Department Care Team (Late st Contact Info) Description 01/08/[address] [facility] [address] [place] [address] Francesco Merritt MD [address] [place] [address] [address] [place], [place] [address] Social History Tobacco Use Types Packs/Day Years [...] was confirmed or suspected to have Coronavirus/COVID-19? No / Unsure 01/06/2023 2:33 PM CDT documented as of this encounter Plan of Treatment Not on file documented as of this encounter Visit Diagnoses Not on filedocumented in this encounter Additional Health Concerns Assessment Noted Time PHQ-9 Depression Total Score: 21 023 10:16 AM CDT documented as of this encounter Care Teams Supervisor [employer] Relationship Specialty Start Date End Date Rosamaria Jones MD [address] [facility] [address] [place] [address] PCP - General Internal Medicine 10/06/18 11/27/[address] [address] PCP - General 11/28/23 Madelaine Mitchell DO md allergy immunology 07/26/16 Francesco Merritt MD [address] [place] [id number] Family Medicine - Sports Medicine 12/14/18 Gabe Carl MD [address] [place] [address] [place] [address] Assigned PCP 05/09/21 Danielle Alcantar MD [address] [place] [address] Assigned Musculoskeletal Provider 07/18/21 02/03/23 documented as of this encounter
--- OUTSIDE RECORDS SUMMARY | 2023-12-26 14:41 | XMS_ITS | Encounter Summary ---
Author Organization [place] Address [address] [facility] [address] Care Team Providers Care Costumed Character Name Role Phone Madelaine Mitchell DO Unavailable [phone] Rosamaria Jones MD Primary Care Provider [phone] Francesco Merritt MD Unavailable [phone] Gabe Carl MD Unavailable [phone] Encounter Details Date Type Department Care Team (Late st Contact Info) Description 08/17/2023 Medical Correspondence [facility] [address] [place] [address] Scan, Non-Provider Social History Tobacco Use Types Packs/Day Years [...] documented as of this encounter Care Teams Costumed Character Relationship Specialty Start Date End Date Rosamaria Jones MD [address] [facility] [address] [place] [address] PCP - General Internal Medicine 10/06/18 11/27/23 Madelaine Mitchell DO repeater chief 07/26/16 Francesco Merritt MD [facility] [place] [address] Family Medicine - Sports Medicine 12/14/18 Gabe Carl MD [address] [facility] [address] [place] [address] Assigned PCP 05/09/21 documented as of this encounter
--- OUTSIDE RECORDS SUMMARY | 2023-12-26 14:41 | XMS_ITS | Encounter Summary ---
Author Organization [place] Address [address] [place] [address] Care Team Providers Care Electrical Manufacturing Technician Name Role Phone Madelaine Mitchell DO Unavailable Rosamaria Jones MD Primary Care Provider [phone] Francesco Merritt MD Unavailable [phone] Elaina Jiang APRN [facility] Unavailable [phone] Rosamaria Jones MD Unavailable Gabe Carl MD Unavailable [phone] Danielle Alcantar MD Unavailable [facility] Primary Care Provider Encounter Details Date Type Department Care Team (Late st Contact Info) Description 07/10/2020 [facility] Medical Advice [facility] [address] [place] [phone] Madelaine Mitchell DO [address] [facility] WILLIAM [address] [place], [place] [address] Social History Tobacco Use Types Packs/Day Years [...] Out COVID-19 03/31/2021 03/31/2021 03/31/2021 7:10 AM CORPORATE COMPLIANCE OFFICER Rule Out COVID-19 09/15/2022 09/15/2022 09/15/2022 9:15 AM CDT Assessment Noted Time PHQ-9 Depression Total Score: 10 019 7:03 AM CDT documented as of this encounter Care Teams Electrical Manufacturing Technician Relationship Specialty Start Date End Date Rosamaria Jones MD [address] [place] [id number] PCP - General Internal Medicine 10/06/18 11/27/[address] [address] PCP - General 11/28/23 Madelaine Mitchell DO computer specialist 07/26/16 Francesco Merritt MD [facility] [address] [address] Family Medicine - Sports Medicine 12/14/18 Elaina Jiang APRN CNP [address] [place], [place] [address] Assigned PCP 10/27/19 04/03/21 Rosamaria Jones MD [address] [place] [address] Assigned PCP 04/04/21 05/08/21 Gabe Carl MD [address] [facility] [address] [place] [address] Assigned PCP 05/09/21 Danielle Alcantar MD [address] [place], [place] [address] Assigned Musculoskeletal Provider 07/18/21 02/03/23 documented as of this encounter
--- OUTSIDE RECORDS SUMMARY | 2023-12-26 14:42 | XMS_ITS | Clinical Summary ---
Author Organization [facility] Address [address] [place] [address] Care Team Providers Care Leather Coverer Name Role Phone Rosamaria Jones MD Primary Care Provider [phone] Source Comments You are receiving this document as you are listed as the primary care provider,follow-up provider, or the patient has been referred to you for consultation.This is in compliance with the Medicare andMedicaid EHR Incentive Program,which states Providers who transition their patient to another setting of careor provider of care or refers their patient to another provider of care shouldprovide summary care record for each transition of care or referral. [facility] Allergies Active Allergy Reactions Criticality Noted Date Comments Sulfa Antibiotics 11/23/2015 Medications Medication Sig Dispensed Refills Start Date End Date Status metFORMIN (GLUCOPHAGE XR) 500 MG 24 hour release tablet Indications: PN: 10/18/2015 Acti ve vitamin-ferrous fumarate-folic acid (PRENATALPLUS) 27-1 MG tablet Take 1 Tab by mouth daily. Active acetaminophen (TYLENOL) 325 MG tablet Take 325-650 mg by mouth every 4 hours as needed for Pain. Active oseltamivir (TAMIFLU) 75 MG capsule Take 1 Cap by mouth two times a day. 10 Cap 0 06/15/2016 Active Active Problems Estimated Date of Delivery Comme nts Yes 01/10/2017 No known active problems Encounters Date Type Department Care Team Description 10/24/2023 monse Tafoya [phone] from Last 3 Months Social History Tobacco Use Types Packs/Day Years Used Date Smoking Tobacco: Never Estimated Date of Delivery Comme nts Yes 01/10/2017 Sex and Gender Information Value Date Recorded Sex Assigned at Not on file Gender Identity Not on file Sexual Orientation Not on file Last Filed Vital Signs Vital Sign Reading Time Taken Comments Blood Pressure 123/75 06/15/2016 11:56 AM BACKGROUND INVESTIGATOR Pulse 104 06/15/2016 11:56 AM BACKGROUND INVESTIGATOR Temperature 36.7 ??C (98.1 ??F) 06/15/2016 11:[address] Respiratory Rate 20 06/15/2016 11:56 AM BACKGROUND INVESTIGATOR Oxygen Saturation 98% 06/15/2016 11:56 AM BACKGROUND INVESTIGATOR Inhaled Oxygen Concentration - - Weight 86.2 kg (190 lb) 11/23/2015 9:35 AM CDT Height 165.1 cm (5' 5) 11/23/2015 9:35 AM CDT Body Mass Index 31.62 11/23/2015 9:35 AM CDT Plan of Treatment Health Maintenance Due Date Last Done Comments Cervical Cancer Screening Due 1989 Hep C Screening (Preventive Services) 1989 HIV Screening (Preventive Services) 2005 Adult Preventive Visit 07/28/2007 DTaP/Tdap/Td (1 - Tdap) 2008 HepB (1) 2008 COVID-19 Vaccine ( - 2022-2 4 season) 2023 Influenza (#1) 2024 Zoster/Shingles (1 of 2) 07/28/2039 HPV Vaccine Aged Out No longer eligi ble based on patient's age to complete this topic HepA Aged Out No longer eligi ble based on patient's age to complete this topic Hib Aged Out No longer eligi ble based on patient's age to complete this topic IPV (Polio) Aged Out No longer eligi ble based on patient's age to complete this topic MCV4 Aged Out No longer eligi ble based on patient's age to complete this topic Pneumococcal Aged Out No longer eligi ble based on patient's age to complete this topic Care Teams Leather Coverer Relationship Specialty Start Date End Date Rosamaria Jones MD [address] [facility] [address] [place], [place] [address] PCP - General 11/10/15
--- OUTSIDE RECORDS SUMMARY | 2023-12-26 14:42 | XMS_ITS | Encounter Summary ---
Author Organization [place] Address [address] [place] [address] Care Team Providers Care Refinery Operator Coking Name Role Phone Rosamaria Jones MD Primary Care Provider [phone] Madelaine Mitchell DO Unavailable [phone] Elaina Jiang APRN MULTI PURPOSE MACHINE OPERATOR Unavailable [phone] No Ref-Primary, Physician Primary Care Provider Rosamaria Jones MD Primary Care Provider [phone] Francesco Merritt MD Unavailable Rosamaria Jones MD Unavailable Loyda Farmer MD Unavailable Elaina Jiang APRN MULTI PURPOSE MACHINE OPERATOR Unavailable [phone] Rosamaria Jones MD Unavailable Gabe Carl MD Unavailable [phone] Danielle Alcantar MD Unavailable [phone] [facility] Primary Care Provider Encounter Details Date Type Department Care Team (Late st Contact Info) Description 07/15/2018 jT [facility] [id number] [place] [phone] Madelaine Mitchell DO [address] [facility] [address] [place] [address] PCOS (polycystic ovarian syndrome) (Primary Dx) Social History Tobacco Use Types [...] encounter Miscellaneous Notes * Telephone Encounter - Danielle Aguilar RN - 07/16/2018 8:37 AM CDT Please see my chart message and advise? Danielle Aguilar RN documented in this encounter Plan of Treatment Not on file documented as of this encounter Visit Diagnoses Diagnosis PCOS (polycystic ovarian syndrome)- Primary Polycystic ovaries documented in this encounter Additional Health Concerns Infection Onset Date Last Indicated Resolved Time Rule Out COVID-19 03/31/2021 03/31/2021 03/31/2021 7:10 AM FEATHER SHAPER Rule Out COVID-19 09/15/2022 09/15/2022 09/15/2022 9:15 AM CDT Assessment Noted Time PHQ-9 Depression Total Score: 0 02/01/20 17 1:00 PM CDT documented as of this encounter Care Teams Refinery Operator Coking Relationship Specialty Start Date End Date Rosamaria Jones MD [address] [place] [address] PCP - General Internal Medicine 09/12/14 07/24/18 No Ref-Primary, Physician PCP - General 07/25/18 10/05/18 Rosamaria Jones MD [address] [place] [address] PCP - General Internal Medicine 10/06/18 11/27/[address] [address] PCP - General 11/28/23 Madelaine Mitchell DO [address] [place] [address] churn operator 07/26/16 Elaina Jiang APRN MULTI PURPOSE MACHINE OPERATOR [address] [place], [place] [address] Assigned PCP 04/08/18 03/30/19 Francesco Merritt MD [address] [place] [address] Family Medicine - Sports Medicine 12/14/18 Rosamaria Jones MD [address] [address] Assigned PCP 03/31/19 09/28/19 Loyda Farmer MD [address] [place] [id number] Assigned PCP 09/29/19 10/26/19 Elaina Jiang APRN MULTI PURPOSE MACHINE OPERATOR [address] [place] [address] Assigned PCP 10/27/19 04/03/21 Rosamaria Jones MD [address] [address] Assigned PCP 04/04/21 05/08/21 Gabe Carl MD [address] [facility] [place] [address] Assigned PCP 05/09/21 Danielle Alcantar MD [address] [place] [address] Assigned Musculoskeletal Provider 07/18/21 02/03/23 documented as of this encounter
--- OUTSIDE RECORDS SUMMARY | 2023-12-26 14:42 | XMS_ITS | Encounter Summary ---
[facility] [address], [place] [address] Care Team Providers Care Blood Bank Credit Clerk Name Role Phone Rosamaria Jones MD Primary Care Provider [phone] Encounter Details Date Type Department Care Team (Late st Contact Info) Description 10/24/2023 franko Tafoya [phone] Social History Tobacco Use Types Packs/Day Years Used Date Smoking Tobacco: Never Estimated Date of Delivery Comme nts Yes 01/10/2017 Sex and Gender Information Value Date Recorded Sex Assigned at Not on file Gender Identity Not on file Sexual Orientation Not on file documented as of this encounter Progress Notes * MEDICINEFRANKO PROVIDER - 10/25/2023 6:57 PM CDT Franko Addendum Treatment Plan Diagnosis Bacterial Vaginosis (BV) Visit Date October 24, 2023 Addendum Date October 25, 2023 Neda Moss Date of : 88 Provider Kei Talley, Physician Title Lawyer Note From Provider Kendrick Red! I have now sent it to the correct pharmacy that you requested. My apologies! Take care!Kei Hanna PA-C Treatment Plan Let?? try a topical antibiotic for your bacterial vaginosis. I sent a prescription to [facility]. Make sure to take all of the antibiotic prescribed, according to the directions, even if your symptoms resolve after a few doses. I??e also listed a few of the best ways to soothe your discomfort and some additional self-care tips to promote healing. If your symptoms don?? improve after 4 days, or if you have questions, please select Help to Request a Follow-up and we'll talk about your next steps for free. Order(s) fluconazole 150 mg tablet Take 1 tablet by mouth single dose as directed Note: Repeat in 3 days if symptoms persist Refills: None metronidazole 0.75 % (37.5mg/5 gram) gel Insert 1 applicatorful into vagina at bedtime as directed for 5 days Note: Refills: None metronidazole 0.75 % (37.5mg/5 gram) gel Insert 1 applicatorful into vagina at bedtime as directed for 5 days Note: Refills: None Sent To: [facility] [address] [place] [address] [address] [place], [place] [id number] Treatment Plan Self Care Tip Topics Avoid Douching Does My Partner Need Treatment? Get Tested Risk Factors Metronidazole Treatment and Alcohol What to Expect If you follow the recommendations I made on the Treatment tab, your symptoms should improve in about 4 days. If your symptoms don?? improve after 4 days, or if you have questions, please select Help to Request a Follow-up and we'll help determine your next step for free. What to Watch Out For Give us a call if you experience: ??? Shaking chills ??? High fever ??? Severe pain in your back, abdomen or pelvis ??? Frequent, painful urination ??? Blood in the urine ??? Painful intercourse My Conditions, Orders, Allergies as of October 25, 2023 Standard condition list Cancer Polycystic Ovarian Syndrome (PCOS) Current orders metronidazole (metronidazole) metronidazole (metronidazole) fluconazole (fluconazole) metronidazole (metronidazole) ( no.144-folic acid) metformin (metformin) Allergies Sulfa (Sulfonamide Antibiotics) [employer] Information [employer] by [employer] We are an online clinic open 07/11. If you have any questions or comments about this visit, please call or email [email or web address] * FAMILY MEDICINEFRANKO PROVIDER - 10/25/2023 9:36 AM CDT Franko Addendum Treatment Plan Diagnosis Bacterial Vaginosis (BV) Visit Date October 24, 2023 Addendum Date October 25, 2023 Neda Isa Date of : 88 Provider eKi Talley, Physician Title Lawyer Note From Provider Kendrick Red! I have sent the topical antibiotic to your pharmacy. Take care!Best, ARIANA Choudhury Treatment Plan Let?? try a topical antibiotic for your bacterial vaginosis. I sent a prescription to [facility]. Make sure to take all of the antibiotic prescribed, according to the directions, even if your symptoms resolve after a few doses. I??e also listed a few of the best ways to soothe your discomfort and some additional self-care tips to promote healing. If your symptoms don?? improve after 4 days, or if you have questions, please select Help to Request a Follow-up and we'll talk about your next steps for free. Order(s) metronidazole 500 mg tablet Take 1 tablet oral twice a day as directed for 7 days Note: Refills: None fluconazole 150 mg tablet Take 1 tablet by mouth single dose as directed Note: Repeat in 3 days if symptoms persist Refills: None metronidazole 0.75 % (37.5mg/5 gram) gel Insert 1 applicatorful into vagina at bedtime as directed for 5 days Note: Refills: None Sent To: [facility] [address] [place] [address] [address] [place], VINICIUS [id number] Treatment Plan Self Care Tip Topics Avoid Douching Does My Partner Need Treatment? Get Tested Risk Factors Metronidazole Treatment and Alcohol What to Expect If you follow the recommendations I made on the Treatment tab, your symptoms should improve in about 4 days. If your symptoms don?? improve after 4 days, or if you have questions, please select Help to Request a Follow-up and we'll help determine your next step for free. What to Watch Out For Give us a call if you experience: ??? Shaking chills ??? High fever ??? Severe pain in your back, abdomen or pelvis ??? Frequent, painful urination ??? Blood in the urine ??? Painful intercourse My Conditions, Orders, Allergies as of October 25, 2023 Standard condition list Cancer Polycystic Ovarian Syndrome (PCOS) Current orders metronidazole (metronidazole) fluconazole (fluconazole) metronidazole (metronidazole) ( no.144-folic acid) metformin (metformin) Allergies Sulfa (Sulfonamide Antibiotics) [employer] Information [employer] [facility] [employer] We are an online clinic open 07/11. If you have any questions or comments about this visit, please call or email [email or web address] * FAMILY MEDICINE, FRANKO PROVIDER - 10/24/2023 7:50 PM CDT Franko Treatment Plan Diagnosis Bacterial Vaginosis (BV) Visit Date October 24, 2023 Neda Moss Date of : 88 Provider Ghazala Ardon, Nurse Practitioner Note From Provider Kendrick Red, Please take a look through your treatment plan and let us know if you have any questions. Hope you feel better soon. Take care, Ghazala REID Treatment Plan Let?? try an oral antibiotic for your bacterial vaginosis. I sent a prescription to [facility]. Make sure to take all of the antibiotic prescribed, according to the directions, even if yoursymptoms resolve after a few doses. I??e also listed a few of the best ways to soothe your discomfort and some additional self-care tips to promote healing. If your symptoms don?? improve after 4 days, or if you have questions, please select Help to Request a Follow- up and we'll talk about your next steps for free. Order(s) metronidazole 500 mg tablet Take 1 tablet oral twice a day as directed for 7 days Note: Refills: None fluconazole 150 mg tablet Take 1 tablet by mouth single dose as directed Note: Repeat in 3 days if symptoms persist Refills: None Sent To: [facility] [address] [facility] [facility] [address] [place], [place] [id number] Treatment Plan Self Care Tip Topics Avoid Douching Does My Partner Need Treatment? Get Tested Risk Factors Metronidazole Treatment and Alcohol What to Expect If you follow the recommendations I made on the Treatment tab, your symptoms should improve in about 4 days. If your symptoms don?? improve after 4 days, or if you have questions, please select Help to Request a Follow-up and we'll help determine your next step for free. What to Watch Out For Give us a call if you experience: ??? Shaking chills ??? High fever ??? Severe pain in your back, abdomen or pelvis ??? Frequent, painful urination ??? Blood in the urine ??? Painful intercourse My Conditions, Orders, Allergies as of October 24, 2023 Standard condition list Cancer Polycystic Ovarian Syndrome (PCOS) Current orders fluconazole (fluconazole) metronidazole (metronidazole) ( no.144-folic acid) metformin (metformin) Allergies Sulfa (Sulfonamide Antibiotics) [facility] Information [facility] [employer] We are an online clinic open 07/11. If you have any questions or comments about this visit, please call or email [email or web address]. documented in this encounter Plan of Treatment Not on file documented as of this encounter Visit Diagnoses Diagnosis Acute vaginitis Vaginitis and vulvovaginitis, unspecified documented in this encounter Care Teams Blood Bank Credit Clerk Relationship Specialty Start Date End Date Rosamaria Jones MD [address] [facility] [address] [place] [address] PCP - General 11/10/15 documented as of this encounter
--- OUTSIDE RECORDS SUMMARY | 2023-12-26 14:42 | XMS_ITS | Encounter Summary ---
Author Organization [facility] [facility] Address [address] [place] [address] Care Team Providers Care Machine Silk Screen Printer Name Role Phone Madelaine Mitchell DO Unavailable [phone] Rosamaria Jones MD Primary Care Provider Francesco Merritt MD Unavailable [phone] Loyda Farmer MD Unavailable CreElaina morales APRN [facility] Unavailable [phone] Rosamaria Jones MD Unavailable Gabe Carl MD Unavailable [phone] Danielle Alcantar MD Unavailable [phone] [facility] [place] [facility] Primary Care Provider Reason for Visit * Reason Comments Medication Refill Encounter Details Date Type Department Care Team (Late st Contact Info) Description 10/05/2019 Refill [facility] [address] [place] [phone] Madelaine Mitchell DO [address] [facility] [address] [place] [address] Medication Refill Social History Tobacco Use Types Packs/Day Years [...] have Coronavirus / COVID-19? No / Unsure 09/12/2019 7:19 AM CDT documented as of this encounter Miscellaneous Notes * Telephone Encounter - Queta Lisa RN - 10/22/2019 10:31 AM CDT Sent [facility]any[facility] message to schedule appt. Queta Morales R.N. * Telephone Encounter - Danielle Aguilar RN - 10/07/2019 12:14 PM CDT Overdue for appt. Has not seen Dr Mitchell since 2017 Left message on answering machine for patient to call back to schedule appt. Will wait to fill. Danielle Aguilar RN documented in this encounter Plan of Treatment Not on file documented as of this encounter Visit Diagnoses Diagnosis PCOS (polycystic ovarian syndrome) Polycystic ovaries documented in this encounter Additional Health Concerns Infection Onset Date Last Indicated Resolved Time Rule Out COVID-19 03/31/2021 03/31/2021 03/31/2021 7:10 AM QUALITY ASSURANCE LEAD Rule Out COVID-19 09/15/2022 09/15/2022 09/15/2022 9:15 AM CDT Assessment Noted Time PHQ-9 Depression Total Score: 10 019 7:03 AM CDT documented as of this encounter Care Teams Machine Silk Screen Printer Relationship Specialty Start Date End Date Rosamaria Jones MD [address] [facility] [address] [place] [address] PCP - General Internal Medicine 10/06/18 11/27/23 [facility], [address] [address] PCP - General 11/28/23 Madelaine Mitchell DO faculty administrator 07/26/16 Francesco Merritt MD [address] [place] [address] Family Medicine - Sports Medicine 12/14/18 Loyda Farmer MD [address] [place], [place] [id number] Assigned PCP 09/29/19 10/26/19 Elaina Jiang APRN [facility] [address] [place], [place] [address] Assigned PCP 10/27/19 04/03/21 Rosamaria Jones MD [address] [facility] [address] [place], [place] [id number] Assigned PCP 04/04/21 05/08/21 Gabe Carl MD [address] [facility] [place] [address] Assigned PCP 05/09/21 Danielle Alcantar MD [address] [place], [place] [address] Assigned Musculoskeletal Provider 07/18/21 02/03/23 documented as of this encounter
--- OUTSIDE RECORDS SUMMARY | 2023-12-26 14:42 | XMS_ITS | Encounter Summary ---
Author Organization [facility] Address [address] [place] [address] Care Team Providers Care Technology Sales Consultant Name Role Phone Stephen Madelaine Garcia DO Unavailable Rosamaria Jones MD Primary Care Provider [phone] Francesco Merritt MD Unavailable SerumLoyda MD Unavailable CreElaina morales APRN [facility] Unavailable [phone] Rosamaria Jones MD Unavailable Gabe Carl MD Unavailable [phone] Danielle Alcantar MD Unavailable [facility], [facility] Primary Care Provider Encounter Details Date Type Department Care Team (Late st Contact Info) Description 10/22/2019 MyC Medical Advice [facility] [address] [facility] [address] [place] [address] Queta Lisa, RN Social History Tobacco Use Types Packs/Day Years [...] Out COVID-19 03/31/2021 03/31/2021 03/31/2021 7:10 AM ANIMAL PATHOLOGY TEACHER Rule Out COVID-19 09/15/2022 09/15/2022 09/15/2022 9:15 AM CDT Assessment Noted Time PHQ-9 Depression Total Score: 10 019 7:03 AM CDT documented as of this encounter Care Teams Technology Sales Consultant Relationship Specialty Start Date End Date Rosamaria Jones MD [address] [place], [place] [address] PCP - General Internal Medicine 10/06/18 11/27/[address] [address] PCP - General 11/28/23 Madelaine Mitchell DO labor relations teacher 07/26/16 Francesco Merritt MD [id number] [place] [address] Family Medicine - Sports Medicine 12/14/18 Loyda Farmer MD [address] [place], [place] [id number] Assigned PCP 09/29/19 10/26/19 Elaina Jiang APRN CNP [address] [place] [address] Assigned PCP 10/27/19 04/03/21 Rosamaria Jones MD [address] [place] [address] Assigned PCP 04/04/21 05/08/21 Gabe Carl MD [address] [facility] [address] [place] [address] Assigned PCP 05/09/21 Danielle Alcantar MD [address] [place] [address] Assigned Musculoskeletal Provider 07/18/21 02/03/23 documented as of this encounter
--- OUTSIDE RECORDS SUMMARY | 2023-12-26 14:42 | XMS_ITS | Encounter Summary ---
Author Organization [facility] Address [address] [place] [address] Care Team Providers Care Automatic Buffing Wheel Former Name Role Phone Madelaine Mitchell DO Unavailable Rosamaria Jones MD Primary Care Provider Francesco Merritt MD Unavailable [phone] Loyda Farmer MD Unavailable CreElaina morales APRN [facility] Unavailable [phone] Rosamaria Jones MD Unavailable Gbae Carl MD Unavailable [phone] Danielle Alcantar MD Unavailable [phone] [facility] Primary Care Provider Reason for Visit * Reason Comments Medication Refill Encounter Details Date Type Department Care Team (Late st Contact Info) Description 10/13/2019 Refill [facility] [address] [place] [id number] Madelaine Mitchell DO [address] [facility] 100 [place] [address] Medication Refill Social History Tobacco Use Types [...] Telephone Encounter - Grisel Catalan RN - 10/14/2019 11:12 AM CDT See other refill request from 10/05/19 documented in this encounter Plan of Treatment Not on file documented as of this encounter Visit Diagnoses Diagnosis PCOS (polycystic ovarian syndrome) Polycystic ovaries documented in this encounter Additional Health Concerns Infection Onset Date Last Indicated Resolved Time Rule Out COVID-19 03/31/2021 03/31/2021 03/31/2021 7:10 AM PARTS SALES REPRESENTATIVE Rule Out COVID-19 09/15/2022 09/15/2022 09/15/2022 9:15 AM CDT Assessment Noted Time PHQ-9 Depression Total Score: 10 019 7:03 AM CDT documented as of this encounter Care Teams Automatic Buffing Wheel Former Relationship Specialty Start Date End Date Rosamaria Jones MD [address] [facility] 200 [place] [address] PCP - General Internal Medicine 10/06/18 11/27/[address] [address] PCP - General 11/28/23 Madelaine Mitchell DO it applications manager 07/26/16 Francesco Merritt MD [address] [place] [address] Family Medicine - Sports Medicine 12/14/18 Loyda Farmer MD [address] [place] [address] Assigned PCP 09/29/19 10/26/19 Elaina Jiang APRN CNP [address] [place] [address] Assigned PCP 10/27/19 04/03/21 Rosamaria Jones MD [address] [facility] 200 [place] [address] Assigned PCP 04/04/21 05/08/21 Gabe Carl MD [address] [facility] [place] [address] Assigned PCP 05/09/21 Danielle Alcantar MD [address] [place] [address] Assigned Musculoskeletal Provider 07/18/21 02/03/23 documented as of this encounter
--- OUTSIDE RECORDS SUMMARY | 2023-12-26 14:42 | XMS_ITS | Encounter Summary ---
Author Organization [facility] Address [address] [place] [address] Care Team Providers Care Artillery Officer Name Role Phone Stephen Madelaine Garcia DO Unavailable [phone] Rosamaria Jones MD Primary Care Provider [phone] [facility] Unavailable [phone] Rosamaria Jones MD Unavailable SerumLoyda MD Unavailable CrekristanElaina APRN DRILLING FOREMAN Unavailable [phone] Rosamaria Jones MD Unavailable MeseretGabe jordan MD Unavailable [phone] Danielle Alcantar MD Unavailable [facility] Primary Care Provider Encounter Details Date Type Department Care Team (Late st Contact Info) Description 06/28/2019 [facility] Only [facility] [address] [address] [facility], [address] [place] [id number] Porsha Vargas RN Social History Tobacco Use Types Packs/Day [...] Procedure Name Priority Date/Time Associated Diagnosis Comments HC COLP CERVIX/UPPER VAGINA Routine 04/25/2018 12:00 AM EKG TECHNICIAN documented in this encounter Results * COLP CERVIX/UPPER VAGINA (04/25/2018 12:00 AM EKG TECHNICIAN) Patient Reported PROCEDURES documented in this encounter Visit Diagnoses Not on filedocumented in this encounter Additional Health Concerns Infection Onset Date Last Indicated Resolved Time Rule Out COVID-19 03/31/2021 03/31/2021 03/31/2021 7:10 AM EKG TECHNICIAN Rule Out COVID-19 09/15/2022 09/15/2022 09/15/2022 9:15 AM CDT Assessment Noted Time PHQ-9 Depression Total Score: 10 019 7:03 AM CDT documented as of this encounter Care Teams Artillery Officer Relationship Specialty Start Date End Date Rosamaria Jones MD [address] [employer] [address] [place] [address] PCP - General Internal Medicine 10/06/18 11/27/[address] [address] PCP - General 11/28/23 Madelaine Mitchell DO sales service assistant 07/26/16 Francesco Merritt MD [facility] [address] [address] Family Medicine - Sports Medicine 12/14/18 Rosamaria Jones MD [address] [place] [address] Assigned PCP 03/31/19 09/28/19 Loyda Farmer MD [address] [place] [address] Assigned PCP 09/29/19 10/26/19 Elaina Jiang APRN DRILLING FOREMAN [address] [place], [place] [address] Assigned PCP 10/27/19 04/03/21 Rosamaria Jones MD [address] [facility] 200 [place], [place] [address] Assigned PCP 04/04/21 05/08/21 Gabe Carl MD [address] [facility] [place] [address] Assigned PCP 05/09/21 Danielle Alcantar MD [address] [place], [place] [address] Assigned Musculoskeletal Provider 07/18/21 02/03/23 documented as of this encounter
--- OUTSIDE RECORDS SUMMARY | 2023-12-26 14:42 | XMS_ITS | Encounter Summary ---
Author Organization [facility] Address [address] [place] [address] Care Team Providers Care Machinist General Name Role Phone Stephen Madelaine Garcia DO Unavailable Rosamaria Jones MD Primary Care Provider [facility] Unavailable Rosamaria Jones MD Unavailable SerumLoyda MD Unavailable [phone] CrekristanElaina APRN ROUND KILN DRAWER Unavailable [phone] Rosamaria Jones MD Unavailable MeseretGabe jordan MD Unavailable [phone] Danielle Alcantar MD Unavailable [phone] [facility] Primary Care Provider Encounter Details Date Type Department Care Team (Late st Contact Info) Description 06/28/2019 [facility] Only [facility] [place] [address] [facility], [address] [place] [address] Porsha [...] Diagnosis Comments HC COLP CERVIX/UPPER VAGINA Routine 04/25/2019 12:00 AM NURSE EXECUTIVE documented in this encounter Results * COLP CERVIX/UPPER VAGINA (04/25/2019 12:00 AM NURSE EXECUTIVE) Patient Reported PROCEDURES documented in this encounter Visit Diagnoses Not on filedocumented in this encounter Additional Health Concerns Infection Onset Date Last Indicated Resolved Time Rule Out COVID-19 03/31/2021 03/31/2021 03/31/2021 7:10 AM NURSE EXECUTIVE Rule Out COVID-19 09/15/2022 09/15/2022 09/15/2022 9:15 AM CDT Assessment Noted Time PHQ-9 Depression Total Score: 10 019 7:03 AM CDT documented as of this encounter Care Teams Machinist General Relationship Specialty Start Date End Date Rosamaria Jones MD [address] [place] [address] PCP - General Internal Medicine 10/06/18 11/27/[address] [address] PCP - General 11/28/23 Madelaine Mitchell DO automotive service management teacher 07/26/16 Francesco Merritt MD [facility] [address] 71967[address] Family Medicine - Sports Medicine 12/14/18 Rosamaria Jones MD [address] [place] [address] Assigned PCP 03/31/19 09/28/19 Loyda Farmer MD [address] [place] [address] Assigned PCP 09/29/19 10/26/19 Elaina Jiang APRN ROUND KILN DRAWER [address] [place], [place] [address] Assigned PCP 10/27/19 04/03/21 Rosamaria Jones MD [address] [facility] 200 [place], [place] [address] Assigned PCP 04/04/21 05/08/21 Gabe Carl MD [address] [facility] [place] [address] Assigned PCP 05/09/21 Danielle Alcantar MD [address] [place], [place] [address] Assigned Musculoskeletal Provider 07/18/21 02/03/23 documented as of this encounter
--- OUTSIDE RECORDS SUMMARY | 2023-12-26 14:42 | XMS_ITS | Encounter Summary ---
Author Organization [facility] Address [address] [place] [address] Care Team Providers Care Eligibility Manager Name Role Phone Rosamaria Jones MD Primary Care Provider [phone] Madelaine Mitchell DO Unavailable [phone] Jonas Cullen MD Unavailable [phone] Elaina Jiang APRN CYTOGENETICS TECHNOLOGIST Unavailable [phone] Elaina Jiang APRN CYTOGENETICS TECHNOLOGIST Unavailable [phone] No Ref-Primary, Physician Primary Care Provider Rosamaria Jones MD Primary Care Provider Francesco Merritt MD Unavailable Rosamaria Jones MD Unavailable Loyda Farmer MD Unavailable [phone] Elaina Jiang APRN CYTOGENETICS TECHNOLOGIST Unavailable [phone] Rosamaria Jones MD Unavailable Gabe Carl MD Unavailable [phone] Danielle Alcantar MD Unavailable [facility] Primary Care Provider Reason for Visit * Reason Onset Date Comments Results 10/07/2016 hgb Encounter Details Date Type Department Care Team (Late st Contact Info) Description 10/07/2016 MyC Medical Advice [facility] [address] [place] [phone] Madelaine Mitchell DO [address] [place] [address] Results (hgb) Social History Tobacco Use Types Packs/Day Years Used Date Smoking Tobacco: Former Cigarettes Smokeless Tobacco: Never Comments:2 to 3 a day Alcohol Use Standard Drinks/Week Comments No 0 (1 standard drink = 0.6 oz pur e alcohol) Comments Yes Sex and Gender Information Value Date Recorded [...] Out COVID-19 03/31/2021 03/31/2021 03/31/2021 7:10 AM OUTBOUND SALES AGENT Rule Out COVID-19 09/15/2022 09/15/2022 09/15/2022 9:15 AM CDT documented as of this encounter Care Teams Eligibility Manager Relationship Specialty Start Date End Date Rosamaria Jones MD [address] [place] [address] PCP - General Internal Medicine 09/12/14 07/24/18 [place] [address] [place] [address] PCP - Assigned PCP 02/04/18 04/07/18 Elaina Jiang APRN CNP [address] [place] [address] PCP - Assigned PCP 04/08/18 06/19/18 No Ref-Primary, Physician PCP - General 07/25/18 10/05/18 Rosamaria Jones MD [address] [address] PCP - General Internal Medicine 10/06/18 11/27/[address] [address] PCP - General 11/28/23 Madelaine Mitchell DO [address] [place] [address] clinical provider trainer 07/26/16 Elaina Jiang APRN CYTOGENETICS TECHNOLOGIST [address] [place] [address] Assigned PCP 04/08/18 03/30/19 Francesco Merritt MD [address] [place] [address] Family Medicine - Sports Medicine 12/14/18 Rosamaria Jones MD [address] [address] Assigned PCP 03/31/19 09/28/19 Loyda Farmer MD [address] [place], [place] [address] Assigned PCP 09/29/19 10/26/19 Elaina Jiang APRN CYTOGENETICS TECHNOLOGIST [address] [place] [address] Assigned PCP 10/27/19 04/03/21 Rosamaria Jones MD [address] [facility] 200 [place] [address] Assigned PCP 04/04/21 05/08/21 Gabe Carl MD [address] [facility] [place] [address] Assigned PCP 05/09/21 Danielle Alcantar MD [address] [place] [address] Assigned Musculoskeletal Provider 07/18/21 02/03/23 documented as of this encounter
[2023-12-26 15:15] LABS: Basophils Absolute Auto 0.05 K/uL (0.00-0.30); Basophils Percent Auto 0.6 % (0.0-3.0); Eosinophils Absolute Auto 0.08 K/uL (0.00-0.50); Eosinophils Percent Auto 0.9 % (0.0-7.0); Hematocrit 39.3 % (33.0-51.0); Hemoglobin* 12.8 gm/dL (12.0-16.0); Immature Granulocytes Abs Auto 0.02 K/uL (0.00-0.30); Immature Granulocytes Pct Auto 0.2 %; Lymphocytes Absolute Auto 2.42 K/uL (0.90-2.90); Mean Corpuscular HGB Conc 33 gm/dL (32-36); Mean Corpuscular Hemoglobin 30 pg (26-34); Mean Corpuscular Volume 93 fL (80-100); Monocytes Percent Auto 4.6 % (0.0-11.0); Neutrophils Absolute Auto 5.99 K/uL (1.7-7.0); Neutrophils Percent Auto 66.7 % (42.0-72.0); Platelet Count* 240 K/uL (140-440); RDW Coefficient of Variation % 12.5 % (11.5-15.5); Red Blood Count 4.22 m/uL (4.00-5.20); White Blood Count* 8.97 K/uL (4.50-11.00)
[2023-12-26 15:22] LABS: Slide Review Reflex No
[2023-12-26 15:26] LABS: Chloride* 105 mmol/L (96-114); Sodium* 142 mmol/L (135-149)
[2023-12-26 15:27] LABS: Potassium* 4.1 mmol/L (3.6-5.1)
[2023-12-26 15:29] LABS: Creatinine* 0.6 mg/dL (0.5-1.5); Est. Creatinine Clearance* 118.88; Estimated Glomerular Filt Rate 121 ml/min
[2023-12-26 15:30] LABS: Anion Gap 15 mEq/L (7-15); Blood Urea Nitrogen* 9 mg/dL (5-24); Calcium* 9.4 mg/dL (8.4-10.6); Carbon Dioxide* 22 mmol/L (20-32); Glucose* 115 mg/dL (60-115)
[2023-12-26 15:40] LABS: C Reactive Protein* < 0.5 mg/dL (0.5-1.0)
[2023-12-26] MEDS: 0.9 % SODIUM CHLORIDE 1000 ml 1,000 ML IV (15:47)
[2023-12-26] MEDS: ONDANSETRON 2 MG/ML inj 4 MG IVP (15:47)
[2023-12-26 15:58] LABS: PCR FLU A Negative PCR FLU A (Negative); PCR FLU B Negative PCR FLU B (Negative); PCR RSV Negative PCR RSV (Negative); SARS PCR* Negative SARS-CoV-2 (Negative)
== END 2023-12-26 17:02 | disposition home or self-care (01) ==
PROVIDERS: Emergency Provider Emergency Medicine; PCP Family Medicine
DX: B34.9 Viral infection, unspecified (principal)
CPT/HCPCS: 36415; 71046; 80048; 85025; 86140; 87631; 93005; 96361; 96374; 99284; 99285; J2405; J7030

== ENCOUNTER 2024-01-04 23:32 | Outpatient (CLI) | payer BC, SELFPAY ==
--- OUTSIDE RECORDS SUMMARY | 2024-01-07 07:35 | XMS_ITS | Clinical Summary ---
Author Organization [place] Address [address] [place] [id number] Care Team Providers [facility] Supervisor Name Role Phone Madelaine Mitchell DO Unavailable Francesco Merritt MD Unavailable [phone] Gabe Carl MD Unavailable [phone] [place] [address] Primary Care Provider Allergies Active Allergy Reactions Criticality Noted Date Comments Polymyxin B-Trimethoprim 07/20/2017 Swelling in eye Sulfa Antibiotics Swelling 09/12/2014 Medications Medication Sig Dispensed Refills Start Date End Date Status Vit-Fe Fumarate-FA ( MULTIVITAMIN PLUS IRON) 27-0.8 MG TABS Take 1 tablet by mouth daily Active Probiotic Product (ACIDOPHILUS PROBIOTIC BLEND PO) Active BIOTIN PO Active loratadine (CLARITIN) 10 MG tablet Take 10 mg by mouth daily Active azelastine (ASTELIN) 0.1 % nasal sprayIndications:P ost-nasal drip Kathleen 1 spray into both nostrils 2 times daily 1 Bottle 11 10/22/2018 Active metFORMIN (GLUCOPHAGE-XR) 500 MG 24 hr tabletIndications: PCOS (polycystic ovarian syndrome) TAKE 4 TABLETS BY MOUTH DAILY 360 tablet 1 04/08/2019 Active nystatin (MYCOSTATIN) 742477 UNIT/ML suspension TAKE 6 ML BY MOUTH [...] taking.Reported on 10/24/2022 letrozole (FEMARA) 2.5 MG tabletIndications: Anovulation Take 1 tablet (2.5 mg) by mouth See Admin Instructions 35 tablet 03/18/2021 Active Additional Information Patient not taking.Reported on 10/24/2022 prochlorperazine (COMPAZINE) 10 MG tablet Take 1 tablet (10 mg) by mouth every 6 hours as needed for nausea or vomiting 20 tablet 03/31/2021 Active Additional Information Patient not taking.Reported on 10/24/2022 busPIRone (BUSPAR) 5 MG tabletIndications: Anxiety Take 1 tablet (5 mg) by mouth 2 times daily for 10 days, THEN 1.5 tablets (7.5 mg) 2 times daily for 10 days, THEN 2 tablets (10 mg) 2 times daily for 10 days. 90 tablet 04/30/2021 Active methocarbamol (ROBAXIN) 500 MG tabletIndications: Trapezius muscle spasm,Left arm numbness Take 1-2 tablets [...] 20 mg by mouth At Bedtime Active chlordiazePOXIDE (LIBRIUM) 25 MG capsule Take 1 capsule (25 mg) by mouth 3 times daily as needed for anxiety. 15 capsule 01/03/2024 Active famotidine (PEPCID) 20 MG tablet Take 1 tablet (20 mg) by mouth 2 times daily for 10 days. 20 tablet 01/03/2024 Active LORazepam (ATIVAN) 0.5 MG tablet Take 0.5 mg by mouth 2 times daily as needed for anxiety. Active ondansetron (ZOFRAN ODT) 4 MG ODT tab Take 1 tablet (4 mg) by mouth every 8 hours as needed for nausea. 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 Plan colp 04/25/18 [place] - no visible lesions, no bx. Plan pap due in 1 year pap from previous pap 03/13/19 Pap reminder letter sent. ([facility]) 03/14/19 TE states pt is 25 weeks (ASAD 06/27/19), no appts in chart. ([facility]) CCT tracking Headache 12/16/2016 PCOS (polycystic ovarian [...] Encounters Date Type Department Care Team Description 01/05/2024 12:29 AM CDT - 01/05/2024 2:46 AM CDT [facility] Emergency Dept [address] [place] [address] Simone Kumar MD Alcohol withdrawal, uncomplicated (H) Discharge Disposition: Home or Self Care 01/05/2024 Travel 01/03/2024 12:57 AM CDT - 01/03/2024 4:39 AM CDT Emergency [facility] Emergency Dept [address] [place] [address] Angie Levi DO Alcohol dependence with uncomplicated withdrawal (H); Alcohol-induced acute pancreatitis without infection or necrosis; Nausea and vomiting, unspecified vomiting type; Benzodiazepine misuse Discharge Disposition: Home or Self Care 01/03/2024 Travel 11/28/2023 2:03 PM CDT - 11/28/2023 5:34 PM CDT Emergency [facility] Emergency Dept [address] [place] [address] Matt Clements MD Anxiety reaction; Benzodiazepine withdrawal [...] Sign Reading Time Taken Comments Blood Pressure 140/90 01/05/2024 2:45 AM CDT Pulse 70 01/05/2024 2:45 AM CDT Temperature 35.8 ??C (96.4 ??F) 01/05/2024 1 2:30 AM CDT Respiratory Rate 19 01/05/2024 2:05 AM CDT Oxygen Saturation 100% 01/05/2024 2:45 AM CDT Inhaled Oxygen Concentration - - Weight 95.6 kg (210 lb 12.2 oz) 024 12:55 AM CDT Height 165.1 cm (5' 5) 01/03/2024 12:5 5 AM CDT Body Mass Index 35.07 01/03/2024 12:55 AM CDT Plan of Treatment Health Maintenance [...] 04/11/2016, Additional history exists PAP 08/20/2021 08/20/2020, 05/0 09/2020, 08/19/2019, Additional history exists PHQ-9 04/26/2023 [...] PLAN Completed 09/25/2018 HPV FOLLOW-UP Completed 08/20/2020, 050 07/2019, 08/19/2019, Additional history exists PAP FOLLOW-UP Completed 08/20/2020, 0 09/2020, 08/19/2019, Additional history exists RSV MONOCLONAL ANTIBODY Aged Out No l onger eligible based on patient's age to complete this topic Procedures Procedure Name Priority Date/Time Associated Diagnosis Comments CBC WITH PLATELETS & DIFFERENTIAL STAT 01/05/2024 1:38 AM CDT CBC WITH PLATELETS AND DIFFERENTIAL STAT 01/05/2024 1:38 AM CDT BASIC METABOLIC PANEL STAT 01/05/2024 1:38 AM CDT URINE CULTURE STAT 01/05/2024 1:28 AM CDT ROUTINE UA WITH MICROSCOPIC REFLEX TO CULTURE STAT 01/05/2024 1:28 AM CDT EKG 12-LEAD, TRACING ONLY STAT 01/05/2024 1:13 AM CDT US ABDOMEN LIMITED STAT 01/03/2024 3: 23 AM CDT EKG 12-LEAD, TRACING ONLY STAT 01/03/2024 2:23 AM CDT CBC WITH PLATELETS & DIFFERENTIAL STAT 01/03/2024 1:34 AM CDT CBC WITH PLATELETS AND DIFFERENTIAL STAT 01/03/2024 1:34 AM CDT HCG QUALITATIVE STAT 01/03/2024 1:34 AM CDT ETHYL ALCOHOL LEVEL STAT 01/03/2024 1 :34 AM CDT LIPASE STAT 01/03/2024 1:34 AM CDT COMPREHENSIVE METABOLIC PANEL STAT 01/03/2024 1:34 AM CDT GLUCOSE BY METER STAT 01/03/2024 1:30 AM CDT CTA HEAD NECK W CONTRAST STAT 11/28/2023 [...] TYPES DNA CERVICAL Routine 03/28/2018 9:20 AM BIOMEDICAL SPECIALIST PCOS (polycystic ovarian syndrome) PAP IMAGED THIN LAYER SCREEN Routine 03/28/2018 9:09 AM BIOMEDICAL SPECIALIST Encounter for general adult medical examination with abnormal findings HIV ANTIGEN ANTIBODY COMBO Routine 05/05/2016 9:51 AM BIOMEDICAL SPECIALIST test positive from Last 3 Months or Most Recently Relevant to Health Maintenance Results * CBC with platelets and differential (01/05/2024 1:38 AM CDT) Only the most recent of3 resultswithin the time period is included. WBC Count 6.4 4.0 - 11.0 10e3/uL 01/05/2024 1:53 AM CDT [facility] RBC Count 4.08 3.80 - 5.20 10e6/uL 01/05/2024 1:53 AM CDT [facility] Hemoglobin 12.6 11.7 - 15.7 g/dL 01/05/2024 1:53 AM CDT [facility] Hematocrit 39.1 35.0 - 47.0 % 01/05/2024 1:53 AM CDT [facility] MCV 96 78 - 100 fL 01/05/2024 1:53 AM CDT [facility] MCH 30.9 26.5 - 33.0 pg 01/05/2024 1:53 AM CDT [facility] MCHC 32.2 31.5 - 36.5 g/dL 01/05/2024 1:53 AM CDT [facility] RDW 12.9 10.0 - 15.0 % 01/05/2024 1:53 AM CDT [facility] Platelet Count 190 150 - 450 10e3/uL 01/05/2024 1:53 AM CDT [facility] % Neutrophils 54 % 01/05/2024 1:53 AM CDT [facility] % Lymphocytes 33 % 01/05/2024 1:53 AM CDT [facility] % Monocytes 7 % 01/05/2024 1:53 AM CDT [facility] % Eosinophils 5 % 01/05/2024 1:53 AM CDT [facility] % Basophils 1 % 01/05/2024 1:53 AM CDT [facility] % Immature Granulocytes 0 % 01/05/2024 1:53 AM CDT [facility] NRBCs per 100 WBC 0 <1 /100 024 1:53 AM CDT [facility] Absolute Neutrophils 3.4 1.6 - 8.3 10e3/uL 01/05/2024 1:53 AM CDT [facility] Absolute Lymphocytes 2.1 0.8 - 5.3 10e3/uL 01/05/2024 1:53 AM CDT [facility] Absolute Monocytes 0.5 0.0 - 1.3 10e3/uL 01/05/2024 1:53 AM CDT [facility] Absolute Eosinophils 0.3 0.0 - 0.7 10e3/uL 01/05/2024 1:53 AM CDT [facility] Absolute Basophils 0.0 0.0 - 0.2 10e3/uL 01/05/2024 1:53 AM CDT [facility] Absolute Immature Granulocytes 0.0 <=0.4 10e3/uL 01/05/2024 1:53 AM CDT [facility] Absolute NRBCs 0.0 10e3/uL 01/05/2024 1:53 AM CDT [facility] Blood BLOOD SPECIMEN / Unknown Venipuncture / Unknown 01/05/2024 1:38 AM CDT 01/05/2024 1:50 AM CDT Yassine Cramer MD LAB - BLOOD ORDERABL ES [facility] Acute Care Lab [address] Lab (1st floor, no room number) [place] [address], [facility] * (ABNORMAL) Basic metabolic panel (01/05/2024 1:38 AM CDT) Only the most recent of2 resultswithin the time period is included. Sodium 140 135 - 145 mmol/L 01/05/2024 2:10 AM CDT LABORATORY Potassium 3.9 3.4 - 5.3 mmol/L 01/05/2024 2:10 AM CDT LABORATORY Chloride 102 98 - 107 mmol/L 01/05/2024 2:10 AM CDT LABORATORY Carbon Dioxide (CO2) 23 22 - 29 mmol/L 01/05/2024 2:10 AM CDT LABORATORY Anion Gap 15 7 - 15 mmol/L 01/05/2024 2:10 AM CDT LABORATORY Urea Nitrogen 17.3 6.0 - 20.0 mg/dL 01/05/2024 2:10 AM CDT LABORATORY Creatinine 0.73 0.51 - 0.95 mg/dL 01/05/2024 2:10 AM CDT LABORATORY GFR Estimate >90 >60 mL/min/1.7 3m2 01/05/2024 2:10 AM CDT LABORATORY Comment:eGFR calculated us2020 CKD-EPI equation. Calcium 9.6 8.8 - 10.4 mg/dL 01/05/2024 2:10 AM CDT LABORATORY Comment:Reference intervals for this test were updated on 10/31/2023 to reflect our healthy population more accurately. There may be differences in the flagging of prior results with similar values performed with this method. Those prior results can be interpreted in the context of the updated reference intervals. Glucose 105(H) 70 - 99 mg/dL 01/05/2024 2:10 AM CDT LABORATORY Blood BLOOD SPECIMEN / Unknown Venipuncture / Unknown 01/05/2024 1:38 AM CDT 01/05/2024 1:50 AM CDT Yassine Cramer MD LAB - BLOOD ORDERABL ES LABORATORY [facility] Acute Care Lab [address] [facility] Lab (1st floor, no room number) [place] [address] * (ABNORMAL) UA with Microscopic reflex to Culture (01/05/2024 1:28 AM CDT) Only the most recent of2 resultswithin the time period is included. Color Urine Light Yellow Colorless, Straw, Light Yellow, Yellow 01/05/2024 2:04 AM CDT LABORATORY Appearance Urine Slightly Cloudy(A) Clear 01/05/2024 2:04 AM CDT LABORATORY Glucose Urine Negative Negative mg/dL 01/05/2024 2:04 AM CDT LABORATORY Bilirubin Urine Negative Negative 2:04 AM CDT LABORATORY Ketones Urine Negative Negative mg/dL 01/05/2024 2:04 AM CDT LABORATORY Specific Zahl Urine 1.011 1.003 - 1.035 01/05/2024 2:04 AM CDT LABORATORY Blood Urine Trace(A) Negative 01/05/2024 2:04 AM CDT LABORATORY pH Urine 7.0 5.0 - 7.0 01/05/2024 2:04 AM CDT LABORATORY Protein Albumin Urine Negative Negative mg/dL 01/05/2024 2:04 AM CDT LABORATORY Urobilinogen Urine Normal Normal, 2.0 mg/dL 01/05/2024 2:04 AM CDT LABORATORY Nitrite Urine Negative Negative 01/05/2024 2:04 AM CDT LABORATORY Leukocyte Esterase Urine Large(A) Negative 01/05/2024 2:04 AM CDT LABORATORY Bacteria Urine Moderate(A) None Seen /HPF 01/05/2024 2:04 AM CDT LABORATORY Mucus Urine Present(A) None Seen /LPF 01/05/2024 2:04 AM CDT LABORATORY RBC Urine 5(H) <=2 /HPF 01/05/2024 2:04 AM CDT LABORATORY WBC Urine 44(H) <=5 /HPF 01/05/2024 2:04 AM CDT LABORATORY Squamous Epithelials Urine 15(H) <=1 /HPF 01/05/2024 2:04 AM CDT [facility] Urine MID-STREAM URINE SPECIMEN / Unknown Non-blood Collection / Unknown 01/05/2024 1:28 AM CDT 01/05/2024 1:51 AM CDT Narrative [facility] - 01/05/2024 2:04 AM CDT Urine Culture ordered based on laboratory criteria Yassine Cramer MD LAB - URINE ORDERABL ES LABORATORY [facility] Acute Care Lab [address] Lab (1st floor, no room number) [place] [address] * Urine Culture (01/05/2024 1:28 AM CDT) Only the most recent of2 resultswithin the time period is included. Culture >100,000 CFU/mL Mixture of Urogenital Amanda 01/06/2024 6:58 AM CDT [facility] Urine MID-STREAM URINE SPECIMEN / Unknown Non-blood Collection / Unknown 01/05/2024 1:28 AM CDT 01/05/2024 2:04 AM CDT Narrative [facility] - 01/06/2024 6:58 AM CDT Multiple morphotypes present with no predominant organism. ??Growth consistent with probable contamination during collection. ??Suggest repeat specimen if clinically indicated. Yassine Cramer MD LAB - MICRO GENERAL ORDERABLES [facility]. Diseases Di[facility]. Lab [address] [facility] [place] [address] * EKG 12-lead, tracing only (01/05/2024 1:13 AM CDT) Only the most recent of3 resultswithin the time period is included. Systolic Blood Pressure mmHg RADIOLOGY RESULTS Diastolic Blood Pressure mmHg RADIOLOGY RESULTS Ventricular Rate 52 BPM RAD IOLOGY RESULTS Atrial Rate 52 BPM RADIOLOG Y RESULTS IL Interval 160 ms RADIOLOG Y RESULTS QRS Duration 86 ms RADIOLO GY RESULTS QT 446 ms RADIOLOGY RESULTS QTc 414 ms RADIOLOGY RESULTS P [place]rop[place] 37 degrees RADIOLOGY RESULTS R AXIS 21 degrees RADIOLOGY RESULTS T [place] 13 degrees RADIOLOGY RESULTS Interpretation ECG Sinus bradycardia with sinus arrhythmia Cannot rule out Anterior infarct , age undetermined Abnormal ECG When compared with ECG of 03-Jan-2024 02:23, Vent. rate has decreased by ??41 bpm Confirmed by - EMERGENCY ROOM, PHYSICIAN ([id number]), news copy editor ÁNGELA CROW ([id number]) on 01/05/2024 6:42:05 AM RADIOLOGY RESULTS 01/05/2024 1:13 AM CDT 01/05/2024 6:42 AM CDT Yassine Cramer MD ECG ORDERABLES RADIOLOGY RESULTS * US Abdomen Limited (01/03/2024 3:23 AM CDT) Anatomical Region Laterality Modality Abdomen/Pelvis Ultrasound 01/03/2024 3:23 AM CDT Impressions 01/03/2024 3:30 AM CDT IMPRESSION: 1. ??Hepatomegaly and hepatic steatosis. 2. ??Normal gallbladder. Narrative 01/03/2024 3:30 AM CDT EXAM: US ABDOMEN LIMITED LOCATION: [facility] DATE: 01/03/2024 INDICATION: upper abdominal pain COMPARISON: CT from 12/24/2020. TECHNIQUE: Limited abdominal ultrasound. FINDINGS: GALLBLADDER: Normal. No gallstones, wall thickening, or pericholecystic fluid. Negative sonographic Hussein's sign. BILE DUCTS: No biliary dilatation. The common duct measures 4 mm. LIVER: Increased echogenicity from diffuse fatty infiltration. The liver measures 21 cm in length. There is a geographic hypoechoic focus in the left liver lobe measuring 5.4 x 3.8 x 3.4 cm which presumably relates to focal fatty sparing. RIGHT KIDNEY: No hydronephrosis. PANCREAS: The visualized portions are normal. No ascites. Procedure Note Yoav Osei MD - 01/03/2024 EXAM: US ABDOMEN LIMITED LOCATION: [facility] DATE: 01/03/2024 INDICATION: upper abdominal pain COMPARISON: CT from 12/24/2020. TECHNIQUE: Limited abdominal ultrasound. FINDINGS: GALLBLADDER: Normal. No gallstones, wall thickening, or pericholecysticfluid. Negative sonographic Hussein's sign. BILE DUCTS: No biliary dilatation. The common duct measures 4 mm. LIVER: Increased echogenicity from diffuse fatty infiltration. The livermeasures 21 cm in length. There is a geographic hypoechoic focus in theleft liver lobe measuring 5.4 x 3.8 x 3.4 cm which presumably relates tofocal fatty sparing. RIGHT KIDNEY: No hydronephrosis. PANCREAS: The visualized portions are normal. No ascites. IMPRESSION: 1. Hepatomegaly and hepatic steatosis. 2. Normal gallbladder. Angie Levi DO G US ORDERABLES * (ABNORMAL) Lipase (01/03/2024 1:34 AM CDT) Pathologist [facility] Lipase 85(H) 13 - 60 U/L 01/03/2024 2:01 AM CDT LABORATORY Blood BLOOD SPECIMEN / Unknown Venipuncture / Unknown 01/03/2024 1:34 AM CDT 01/03/2024 1:42 AM CDT Angie Levi DO LAB - BLOOD ORDERA BLES [facility] Acute Care Lab [address] Lab (1st floor, no room number) [place] [address] * HCG QUALitative (blood) (01/03/2024 1:34 AM CDT) Only the most recent of2 resultswithin the time period is included. Pathologist [facility] hCG Serum Qualitative Negative Negative HERMILO 01/03/2024 2:09 AM CDT LABORATORY Comment:This test is for scr eening purposes. Results should be interpreted along with the clinical picture. Confirmation testing is available if warranted by ordering [id number], HCG Quantitative . Blood BLOOD SPECIMEN / Unknown Venipuncture / Unknown 01/03/2024 1:34 AM CDT 01/03/2024 1:42 AM CDT Angie Levi DO LAB - BLOOD ORDERA BLES [facility] Acute Care Lab [address] Lab (1st floor, no room number) [place] [address], [facility] * (ABNORMAL) Comprehensive metabolic panel (01/03/2024 1:34 AM CDT) Sodium 142 135 - 145 mmol/L 01/03/2024 2:01 AM CDT LABORATORY Potassium 3.5 3.4 - 5.3 mmol/L 01/03/2024 2:01 AM CDT LABORATORY Carbon Dioxide (CO2) 21(L) 22 - 29 mmol/L 01/03/2024 2:01 AM CDT LABORATORY Anion Gap 21(H) 7 - 15 mmol/L 01/03/2024 2:01 AM CDT LABORATORY Urea Nitrogen 9.2 6.0 - 20.0 mg/dL 01/03/2024 2:01 AM CDT LABORATORY Creatinine 0.71 0.51 - 0.95 mg/dL 01/03/2024 2:01 AM CDT LABORATORY GFR Estimate >90 >60 mL/min/1.7 3m2 01/03/2024 2:01 AM CDT LABORATORY Comment:eGFR calculated usin 2020 CKD-EPI equation. Calcium 9.8 8.8 - 10.4 mg/dL 01/03/2024 2:01 AM CDT LABORATORY Comment:Reference intervals for this test were updated on 10/31/2023 to reflect our healthy population more accurately. There may be differences in the flagging of prior results with similar values performed with this method. Those prior results can be interpreted in the context of the updated reference intervals. Chloride 100 98 - 107 mmol/L 01/03/2024 2:01 AM CDT LABORATORY Glucose 119(H) 70 - 99 mg/dL 01/03/2024 2:01 AM CDT [facility] Alkaline Phosphatase 90 40 - 150 U/L 01/03/2024 2:01 AM CDT LABORATORY AST 25 0 - 45 U/L 01/03/2024 2:01 AM CDT [facility] ALT 28 0 - 50 U/L 01/03/2024 2:01 AM CDT LABORATORY Protein Total 8.2 6.4 - 8.3 g/dL 01/03/2024 2:01 AM CDT [facility] Albumin 5.3(H) 3.5 - 5.2 g/dL 01/03/2024 2:01 AM CDT [facility] Bilirubin Total 0.2 <=1.2 mg/dL 01/03/2024 2:01 AM CDT [facility] Blood BLOOD SPECIMEN / Unknown Venipuncture / Unknown 01/03/2024 1:34 AM CDT 01/03/2024 1:42 AM CDT Angie Levi DO LAB - BLOOD ORDERA BLES Performing Organization Address City/[facility]/ZIP Co de Phone Number LABORATORY [facility] [address] Lab (1st floor, no room number) [address] * (ABNORMAL) Alcohol level blood (01/03/2024 1:34 AM CDT) Alcohol ethyl 0.08(H) <=0.01 g/dL 01/03/2024 2:01 AM CDT [facility] Blood BLOOD SPECIMEN / Unknown Venipuncture / Unknown 01/03/2024 1:34 AM CDT 01/03/2024 1:42 AM CDT Angie Levi DO LAB - BLOOD ORDERA BLES Performing Organization Address [facility]/ZIP Co de Phone Number [facility] [address] Lab (1st floor, no room number) [address] * (ABNORMAL) Glucose by meter (01/03/2024 1:30 AM CDT) GLUCOSE BY METER POCT 123(H) 70 - 99 mg/dL 01/03/2024 1:38 AM CDT [facility] POC Blood, Capillary BLOOD SPECIMEN / Unknown 01/03/2024 1:30 AM CDT 01/03/2024 1:38 AM CDT Angie Levi DO LAB - BEAKER POCT LABORATORY [facility] Acute Care Lab [address] [facility] Lab (1st floor, no room number) [place] [address], [facility] * CTA Head Neck w Contrast (11/28/2023 [...] reconstruction technique CHRIS BOONE MD SYSTEM ID: ??[id number] Narrative 11/28/2023 4:[address] ANGIOGRAM [...] reconstruction technique CHRIS BOONE MD SYSTEM ID: [id number] Matt Clements MD IMG CT ORDERABL ES [...] reconstruction technique CHRIS BOONE MD SYSTEM ID: ??[id number] Narrative 11/28/2023 4:[address] OF [...] reconstruction technique CHRIS BOONE MD SYSTEM ID: [id number] Matt Clements MD IMG CT ORDERABL ES * Extra Red Top Tube (11/28/2023 12:57 PM CDT) Hold Specimen [facility] 11/28/2023 2:16 PM CDT LABORATORY Blood STRUCTURE OF LEFT UPPER LIMB / Unknown Venipuncture / Unknown 11/28/2023 12:57 PM CDT 11/28/2023 1:10 PM CDT Matt Clements MD LAB - BLOOD ORD ERABLES [facility] Acute Care Lab [address] Lab (1st floor, no room number) [place] [address] * Extra Blue Top Tube (11/28/2023 12:57 PM CDT) Hold Specimen [facility] 11/28/2023 2:16 PM CDT LABORATORY Blood STRUCTURE OF LEFT UPPER LIMB / Unknown Venipuncture / Unknown 11/28/2023 12:57 PM CDT 11/28/2023 1:10 PM CDT Matt Clements MD LAB - BLOOD ORD ERABLES [facility] Acute Care Lab [address] Lab (1st floor, no room number) [place] [address], [facility] * Troponin T, High Sensitivity (11/28/2023 12:57 PM CDT) Troponin T, High Sensitivity <6 <=14 ng/L 11/28/2023 1:32 PM CDT LABORATORY Comment: Either a High Sensitivity Troponin [...] MD LAB - BLOOD ORD ERABLES LABORATORY [facility] Acute [facility] Lab [address] Lab (1st floor, no room number) [address] [place] [address] * TSH with free T4 reflex (11/28/2023 12:57 PM CDT) Pathologist [facility] TSH 0.42 0.30 - 4.20 uIU/mL 11/28/2023 2:42 PM CDT LABORATORY Blood STRUCTURE OF LEFT UPPER LIMB / Unknown Venipuncture / Unknown 11/28/2023 12:57 PM CDT 11/28/2023 1:10 PM CDT Matt Clements MD LAB - BLOOD ORD ERABLES [facility] Acute Care Lab [address] Lab (1st floor, no room number) [place] [phone] * Magnesium (11/28/2023 12:57 PM CDT) Magnesium 2.0 1.7 - 2.3 mg/dL 11/28/2023 2:31 PM CDT LABORATORY Blood STRUCTURE OF LEFT UPPER LIMB / Unknown Venipuncture / Unknown 11/28/2023 12:57 PM CDT 11/28/2023 1:10 PM CDT Matt Clements MD LAB - BLOOD ORD ERABLES LABORATORY [facility] Acute Care Lab [address] [facility] Lab (1st floor, no room number) [place] [address] * (ABNORMAL) HPV High Risk Types DNA Cervical (03/28/2018 9:20 AM BIOMEDICAL SPECIALIST) HPV Source [facility] 04/03/2018 7:38 AM BIOMEDICAL SPECIALIST [facility] HPV 16 DNA Negative NEG^Nega tive 04/03/2018 4:18 PM BIOMEDICAL SPECIALIST [facility] HPV 18 DNA Negative NEG^Nega tive 04/03/2018 4:18 PM BIOMEDICAL SPECIALIST [facility] Other HR HPV Positive(A) NEG^Nega tive 04/03/2018 4:18 PM BIOMEDICAL SPECIALIST [facility] Final Diagnosis This patient's sample is positive for other HR HPV DNA (types 31, 33, 35, 39, 45, 51, 52, 56, 58, 59, 66 or 68), not HPV 16 or HPV 18 DNA. This result requires clinical correlation with concurrent cytology findings. 04/03/2018 4:18 PM BIOMEDICAL SPECIALIST [facility] Comment: This test was developed and its performance characteristics determined by the [facility], Molecular Diagnostics Laboratory. It has [...] Specimen Description Cervical Cells 04/03/2018 7:38 AM BIOMEDICAL SPECIALIST [facility] Comment:[id number] 03/28/2018 9:20 AM BIOMEDICAL SPECIALIST 03/28/2018 2:56 PM BIOMEDICAL SPECIALIST Tristen Jiang APRN TELEGRAPHIC TYPEWRITER REPAIRER LAB - BLOOD ORDERABLES [facility] [address] [place] [address] * (ABNORMAL) Pap imaged thin layer screen reflex to HPV if ASCUS - recommend age 25 - 29 (03/28/2018 9:09 AM BIOMEDICAL SPECIALIST) PAP ASC-US(A) JOSE JUAN Singh Report Patient Name: MADI MOSS MR#: [id number] Specimen #: [id number] Collected: 03/28/2018 Received: 03/29/2018 Reported: 04/02/2018 14:41 [...] Carmine Stevens M.D. Processed and screened at [facility] CLINICAL HISTORY: LMP: 03/05/2018 A previous normal pap Date of Last Pap: 01/01/2015, Papanicolaou Test Limitations: ??Cervical cytology is a screening test with limited sensitivity; regular screening is critical for cancer prevention; Pap tests are primarily effective for the diagnosis/preventi on of squamous cell carcinoma, not adenocarcinomas or other cancers. TESTING LAB LOCATION: [facility] [address] [place] ??[phone] COLLECTION SITE: Client: ??[facility] Location: [place] ([place]) JOSE JUAN Cytologic material (specimen) 03/28/2018 9:09 AM BIOMEDICAL SPECIALIST 03/29/2018 11:25 AM BIOMEDICAL SPECIALIST Tristen Jiang APRN TELEGRAPHIC TYPEWRITER REPAIRER LAB - OPTIME CLINICAL SPECIMEN COPATH * HIV Antigen Antibody Combo (05/05/2016 9:51 AM BIOMEDICAL SPECIALIST) HIV Antigen Antibody Combo Nonreactive HIV-1 p24 Ag & HIV-1/HIV-2 Ab Not Detected NR [facility] Blood specimen (specimen) 05/05/2016 9:51 AM BIOMEDICAL SPECIALIST 05/05/2016 9:56 AM BIOMEDICAL SPECIALIST Madelaine Mitchell DO LAB - BLOOD ORDER MENDEZ [facility] [address] [place] [address], [facility] from Last 3 Months or Most Recently Relevant to Health Maintenance Care Teams Dye House Supervisor Relationship Specialty Start Date End Date [facility], [address] [address] PCP - General 11/28/23 Madelaine Mitchell DO records management clerk 07/26/16 Francesco Merritt MD [address] [place], [place] [id number] [place] [address] Family Medicine - Sports Medicine 12/14/18 Gabe Carl MD [address] [facility] VINICIUS MANNING [address] Assigned PCP 05/09/21
--- OUTSIDE RECORDS SUMMARY | 2024-01-07 07:35 | XMS_ITS | Clinical Summary ---
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 Plan colp 04/25/18 Lopez - no visible lesions, no bx. Plan pap due in 1 year pap from previous pap 03/13/19 Pap reminder letter sent. ([facility]) 03/14/19 TE states pt is 25 weeks (ASAD 06/27/19), no appts in chart. ([facility]) CCT tracking PCOS (polycystic ovarian syndrome) 04/26/2017 Pre-diabetes 04/07/2008 Irregular menses 03/21/2008 Exercise-induced asthma Resolved Problems Problem Noted Date Diagnosed Date Resolved Date Corneal ulcer, unspecified 08/25/2006 0 04/18/2008 FEVER 04/26/2017 Encounters Date Type Department Care Team Description 01/05/2024 Travel 12/27/2023 7:45 AM CDT - 12/27/2023 11:53 AM CDT Emergency [address] [address] Yo Alfredo MD Chest pain, unspecified type (Primary Dx); Shortness of breath; Cough, unspecified type; Nausea Discharge Disposition: Home Self Care 12/27/2023 Travel 12/10/2023 7:05 PM CDT - 12/10/2023 7:52 PM CDT Emergency [address] [address] Evi Novak PA Mastitis, right, acute (Primary [...] Sign Reading Time Taken Comments Blood Pressure 146/97 12/27/2023 11:25 AM CDT Pulse 87 12/27/2023 11:25 AM CDT Temperature 36.9 ??C (98.4 ??F) 12/27/2023 7:42 AM CD T Respiratory Rate 16 12/27/2023 11:25 AM CDT Oxygen Saturation 98% 12/27/2023 11:25 AM CDT Inhaled Oxygen Concentration - - Weight 90.7 kg (200 lb) 12/27/2023 7:42 AM CDT Height 165.1 cm (5' 5) 12/27/2023 7:42 AM CDT Body Mass Index 33.28 12/27/2023 7:42 AM CDT Plan of Treatment Health Maintenance [...] Procedure Name Priority Date/Time Associated Diagnosis Comments SCAN CORRESP-LABORATORY RESULTS 12/28/2023 5:41 AM CDT SCAN CORRESP-IMAGING 12/28/2023 5:41 AM CDT EKG 12 LEAD STAT 12/27/2023 4:05 PM CDT TROPONIN T (HS) ONE TIME Timed 12/27/2023 10:25 AM CDT XR CHEST 2 VIEWS PA AND LATERAL STAT 12/27/2023 9:34 AM CDT D-DIMER,QUANTITATIV E STAT 12/27/2023 8:43 AM CDT COVID-19 MOLECULAR Today 12/27/2023 8: 19 AM CDT TROPONIN T (HS) ACUTE W/2HR REFLEX STAT 12/27/2023 8:19 AM CDT BASIC METABOLIC PANEL STAT 12/27/2023 8:19 AM CDT CBC W PLT NO DIFF STAT 12/27/2023 8:1 9 AM CDT EKG 12 LEAD STAT 12/27/2023 7:51 AM CDT JUICE MIXER THIN PREP PAP SCREEN IMAGED Routine 08/20/2020 1:00 PM CDT ANTI HIV 1/2 Routine 11/12/2010 11:20 AM CDT Screen for STD (sexually transmitted disease) ANTI HCV Routine 11/12/2010 11:20 AM CDT Screen for STD (sexually transmitted disease) from Last 3 Months or Most Recently Relevant to Health Maintenance Results * SCAN CORRESP-LABORATORY RESULTS (12/28/2023 5:41 AM CDT) Narrative 12/28/2023 5:41 AM CDT Ordered by an unspecified provider. Other Clinical Staff OTHER * SCAN CORRESP-IMAGING (12/28/2023 5:41 AM CDT) Anatomical Region Laterality Modality Other Narrative 12/28/2023 5:41 AM CDT Ordered by an unspecified provider. Other Clinical Staff OTHER * EKG 12 LEAD (12/27/2023 4:05 PM CDT) Only the most recent of2 resultswithin the time period is included. Pathologist [facility] Interpretation Normal sinus rhythm Normal ECG BEYOND NOW Ventricular Rate 100 BPM BEYOND NOW Atrial Rate 100 BPM BEYOND NOW P-R Interval 124 ms BEYOND NOW QRS Duration 84 ms BEYOND NOW QT 320 ms BEYOND NOW QTc 412 ms BEYOND NOW P [place] 56 degrees BEYOND NOW R [place] 86 degrees BEYOND NOW T [place] 71 degrees BEYOND NOW 12/27/2023 4:05 PM CDT 12/29/2023 8:11 AM CDT Boston Tinajero DO EKG ORD BEYOND NOW [place], [place] * TROPONIN T (HS) ONE TIME (12/27/2023 10:25 AM CDT) Pathologist [facility] TROPONIN T HS <6 6-10 ng/L ng/L 12/27/2023 10:59 AM CDT [facility] Blood BLOOD SPECIMEN / Unknown Non-Lab Butterfly / Unknown 12/27/2023 10:25 AM CDT 12/27/2023 10:30 AM CDT Yo Alfredo MD CHEMISTRY [facility] [address] [place] [address] * XR CHEST 2 VIEWS PA AND LATERAL (12/27/2023 9:34 AM CDT) Anatomical Region Laterality Modality CHEST, THORAX, Lung, HEART Digit al Radiography 12/27/2023 9:50 AM CDT Impressions 12/27/2023 9:50 AM CDT No acute findings and no significant changes from the prior exam. Dictated by Domi Colón MD @ 12/27/2023 9:50:05 AM (Electronically Signed) Narrative 12/27/2023 9:50 AM CDT For Patients: ??As a result of the Cures Act, medical imaging exams and procedure reports are released immediately into your electronic medical record. ??You may view this report before your referring provider. ??If you have questions, please contact your health care provider. INDICATION: Shortness of breath. 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 TECHNIQUE: Chest 2 views. COMPARISON: Chest radiograph 06/27/2023 FINDINGS: Cardiovascular and mediastinum: ??Heart size is normal. ??Unremarkable mediastinum. Lungs and pleural spaces: ??Postprocedural changes of the right lung. No sign of edema or mass. No pleural effusion or pneumothorax Bones and soft tissues: ??No significant findings. Procedure Note Domi Colón MD - 12/27/2023 For Patients: As a result of the Cures Act, medical imagingexams and procedure reports are released immediately into your electronicmedical record. You may view this report before your referring provider.If you have questions, please contact your health care provider. INDICATION: Shortness of breath. History of carcinoid tumor status post right middlelobectomy. TECHNIQUE: Chest 2 views. COMPARISON: Chest radiograph 06/27/2023 FINDINGS: Cardiovascular and mediastinum: Heart size is normal. Unremarkablemediastinum. Lungs and pleural spaces: Postprocedural changes of the right lung. Nosign of edema or mass. No pleural effusion or pneumothorax Bones and soft tissues: No significant findings. IMPRESSION: No acute findings and no significant changes from the prior exam. Dictated by Domi Colón MD @ 12/27/2023 9:50:05 AM (Electronically Signed) Yo Alfredo MD GENERAL IMAGING * D-DIMER,QUANTITATIVE (12/27/2023 8:43 AM CDT) D-DIMER,QUANTIT ATIVE <0.22 <=0.49 FEU mcg/mL 12/27/2023 9:05 AM CDT [facility] Blood BLOOD SPECIMEN / Unknown IV Start / Unknown 12/27/2023 8:43 AM CDT 12/27/2023 8:55 AM CDT Narrative [facility] - 12/27/2023 9:05 AM CDT The cut off value for exclusion of Deep Vein Thrombosis and / or Pulmonary Embolism is 0.50 FEU mcg/mL For patients greater than 50 years of age the upper limit is age dependent and was calculated with the formula: ?? (PATIENT AGE x 0.01) FEU mcg/mL = Upper limit of normal range Yo Alfredo MD HEMATOLOGY [address] [address] * COVID-19 MOLECULAR (12/27/2023 8:19 AM CDT) Pathologist [facility] COVID 19 [employer] MOLECULAR Negative Negative 12/27/2023 9:02 AM CDT [facility] Comment:All PCR tests are bauman bject to false negative result due to variability in viral load and collection technique. A negative result does not rule out a SARS-CoV-2 infection. Clinical correlation required. TESTING LABORATORY [facility] 12/27/2023 9:02 AM CDT [facility] Comment:Specimen submitted t o [facility] for testing. Other SPECIMEN FROM NASOPHARYNGEAL STRUCTURE / Unknown Non-Blood / Unknown 12/27/2023 8:19 AM CDT 12/27/2023 8:23 AM CDT Yo Alfredo MD MICROBIOLOGY [facility] [address] [place] [address] * TROPONIN T (HS) ACUTE W/2HR REFLEX (12/27/2023 8:19 AM CDT) TROPONIN T HS 6 6-10 ng/L ng/L 12/27/2023 8:55 AM CDT [facility] Blood BLOOD SPECIMEN / Unknown IV Start / Unknown 12/27/2023 8:19 AM CDT 12/27/2023 8:23 AM CDT Narrative [facility] - 12/27/2023 8:55 AM CDT hs-cTnT (Elecsys Troponin T Gen 5) concentration (s) above the sex-specific 99th percentile (16 ng/L or greater for males or 11 ng/L or greater for females) are indicative of myocardial injury. If initial hs-cTnT <=100 ng/L at presentation, a 0h/2h ABSOLUTE (ng/L) delta change (rising or falling) of >=10 ng/L suggests a significant change, whereas a 0h/2h delta change <=3 ng/L suggests no significant change. If initial hs-cTnT >100 ng/L at presentation, a 0h/2h/ RELATIVE (percent, %) delta change of 20% is suggested to distinguish patients with acute vs. chronic myocardial injury. There are multiple etiologies that can cause hs-cTnT increases above the 99th percentile (myocardial injury) other than acute myocardial infarction. Clinical context and careful clinical evaluation are critical for diagnosis and risk-stratification. The diagnosis of acute myocardial infarction requires a rising and/or falling pattern in hs-cTnT concentrations with at least one value above the sex-specific 99th percentile PLUS at least one of the following clinical criteria: ischemic symptoms, new or presumed new significant ST-T wave changes or new LBBB, development of pathological Q waves, imaging evidence of new loss of viable myocardium or new regional wall motion abnormality, or identification of intracoronary atherothrombosis or an acute angiographic culprit on coronary angiography. In appropriate low-risk patients with a non-ischemic electrocardiogram without active chest pain with a symptom onset >3-hours without recurrence, a single initial hs-cTnT<6 ng/L identifies patient with a very low risk in emergency department patient population. Yo Alfredo MD CHEMISTRY [facility] [address] [place] [address] * CBC W PLT NO DIFF (12/27/2023 8:19 AM CDT) WHITE BLOOD COUNT 8.0 4.5 - 11.0 thou/cu mm 12/27/2023 8:26 AM CDT [facility] RED BLOOD COUNT 4.50 4.00 - 5.20 mil/cu mm 12/27/2023 8:26 AM CDT [facility] HEMOGLOBIN 14.2 12.0 - 16.0 g/dL 12/27/2023 8:26 AM CDT [facility] HEMATOCRIT 42.4 33.0 - 51.0 % 12/27/2023 8:26 AM CDT [facility] MCV 94 80 - 100 fL 12/27/2023 8:26 AM CDT [facility] MCH 31.6 26.0 - 34.0 pg 12/27/2023 8:26 AM CDT [facility] MCHC 33.5 32.0 - 36.0 g/dL 12/27/2023 8:26 AM CDT [facility] RDW 12.9 11.5 - 15.5 % 12/27/2023 8:26 AM CDT [facility] PLATELET COUNT 188 140 - 440 thou/cu mm 12/27/2023 8:26 AM CDT [facility] MPV 10.9 6.5 - 11.0 fL 12/27/2023 8:26 AM CDT [facility] NRBC 0.0 % 12/27/2023 8:26 AM CDT [facility] ABS NRBC 0.0 thou /cu mm 12/27/2023 8:26 AM CDT [facility] Blood BLOOD SPECIMEN / Unknown IV Start / Unknown 12/27/2023 8:19 AM CDT 12/27/2023 8:23 AM CDT Yo Alfredo MD HEMATOLOGY [facility] [address] [place] [address] * (ABNORMAL) BASIC METABOLIC PANEL (12/27/2023 8:19 AM CDT) SODIUM 140 136 - 145 mmol/L 12/27/2023 9:18 AM CDT [facility] POTASSIUM 12/27/2023 9:18 AM CDT [facility] Comment:Canceled- Specimen H emolyzed, Disposition Per Policy CHLORIDE 101 98 - 107 mmol/L 12/27/2023 9:18 AM CDT [facility] CO2,TOTAL 19(L) 22 - 29 mmol/L 12/27/2023 9:18 AM CDT [facility] ANION GAP 20(H) 5 - 18 12/27/2023 9:18 AM CDT [facility] GLUCOSE 106(H) 70 - 99 mg/dL 12/27/2023 9:18 AM CDT [facility] CALCIUM 9.7 8.6 - 10.0 mg/dL 12/27/2023 9:18 AM CDT [facility] BUN 8 6 - 20 mg/dL 12/27/2023 9:18 AM CDT [facility] CREATININE 0.75 0.50 - 0.90 mg/dL 12/27/2023 9:18 AM T [facility] BUN/CREAT RATIO 11 10 - 20 9:18 AM CDT [facility] eGFR >90 >90 mL/min/1.7 3m2 12/27/2023 9:18 AM T [facility] Comment:As of 2021, eG FR is calculated by the CKD-EPI creatinine equation without race adjustment. ??eGFR can be influenced by muscle mass, exercise, and diet. ??The reported eGFR is an estimation only and is only applicable if the renal function is stable. Blood BLOOD SPECIMEN / Unknown IV Start / Unknown 12/27/2023 8:19 AM CDT 12/27/2023 8:23 AM CDT Narrative [facility] - 12/27/2023 9:18 AM CDT Ok to report BMP without K per Jenny Rasheed RN Yo Alfredo MD CHEMISTRY [facility] [address] [place] [address] * JUICE MIXER THIN PREP PAP SCREEN IMAGED (08/20/2020 1:00 PM CDT) Case Report Gynecologic Cytology Report ? Case: [id number] ? Authorizing Provider: ??Megan Hernandez MD ??Collected: ? 08/20/2020 1300 ? Ordering Location: ? [facility] ?Received: ?08/23/2020 0927 ? First Screen: ?Baccam, Minie ? Specimen: ?JUICE MIXER ThinPrep Vial Screening, Cervical/Vaginal ? 09/01/2020 12:03 PM CDT [facility] ENTRAL LABORATORY INTERPRETATION/ RESULT NEGATIVE FOR INTRAEPITHELIAL LESION OR MALIGNANCY (NIL) (none) 09/01/2020 12:03 PM CDT [facility] EN[facility]AL LAB[facility]ATORY IMEN ADEQUACY Satisfactory for evaluation Endocervical component present 09/01/2020 12:03 PM CDT [facility] HPV REQUEST HPV and PAP 09/01/2020 12:03 PM CDT [facility] Date of LMP 07/30/2020 09/01/2020 12:03 PM CDT [facility] Last Pap Date 08/19/2019 09/01/2020 12:03 PM CDT [facility] Last Pap Result NIL 12:03 PM CDT [facility] Additional Information 09/01/2020 12:03 PM CDT [facility] Comment: Interpreted at [facility] - [address], [place] [address] Automated Review Successful 09/01/2020 12:03 PM CDT [facility] Comment:Specimen processed s uccessfully by automated java web services developer device, ThinPrep Imaging System, [employer] ANCILLARY TESTING JUICE MIXER HPV Ordered, Please see separate report 09/01/2020 12:03 PM CDT [facility] Note The pap test is a screening technique, not a diagnostic procedure. It is used primarily to screen for squamous cancers and precursor lesions. Published studies have shown that it is subject to both false negative and false positive results. The pap test should not be used as the sole means to diagnose or exclude pre-malignant and malignant lesions. 09/01/2020 12:03 PM CDT [facility] Other (Cervical/Vagina l) 08/20/2020 1:00 PM CDT 08/23/2020 9:27 AM CDT Megan Hernandez MD PATHOLOGY/CYTOLO [facility] [address] [place] [address], [place] * ANTI HCV (11/12/2010 11:20 AM CDT) ANTI HCV Non-reacti ve [facility] Blood specimen (specimen) BLOOD SPECIMEN / Unknown 11/12/2010 11:20 AM CDT 11/12/2010 11:08 AM CDT Capri Marquez MD SEND OUTS [facility] [place]NAL ZIP [address] [address] * ANTI HIV 1/2 (11/12/2010 11:20 AM CDT) ANTI HIV 1/2 Non-reacti ve [facility] Blood specimen (specimen) BLOOD SPECIMEN / Unknown 11/12/2010 11:20 AM CDT 11/12/2010 11:08 AM CDT Capri Marquez MD SEND OUTS [facility] INTERNAL ZIP [address] [address] from Last 3 Months or Most Recently [...] Code Status Discussion: Reviewed Preferences Care Teams Clinical Review Nurse Relationship Specialty Start Date End Date Pedro Boudreaux MD [address], [place] [address] PCP - General Family Practice 05/10/23 Leana Syed, RN, BSN [address] [place] [address] Nurse Navigator - Oncology Registered Nurse 05/29/23 Ceferino Catalan MD [address] [place] [address] Surgery - Cardiothoracic 06/01/23
--- OUTSIDE RECORDS SUMMARY | 2024-01-07 07:36 | XMS_ITS | Encounter Summary ---
Author Organization [place] Address [address] [place] [address] Care Team Providers Care Nuclear Medicine Specialist Name Role Phone Madelaine Mitchell DO Unavailable Rosamaria Jones MD Primary Care Provider Francesco Merritt MD Unavailable [phone] Elaina Jiang APRN [facility] Unavailable [phone] Rosamaria Jones MD Unavailable Gabe Carl MD Unavailable [phone] Danielle Alcantar MD Unavailable [facility] Primary Care Provider Encounter Details Date Type Department Care Team (Late st Contact Info) Description 03/14/2021 [facility] Medical Advice [facility] [address] [place] [phone] Madelaine Mitchell DO [address] [facility] [address] [place], [place] [address] Anovulation (Primary Dx) Social History Tobacco Use [...] the my chart message. Clif Catalan RN UTIVE VICE PRESIDENT documented in this encounter Plan of Treatment Not on file documented as of this encounter Visit Diagnoses Diagnosis Anovulation- Primary Female infertility associated with anovulation documented in this encounter Additional Health Concerns Infection Onset Date Last Indicated Resolved Time Rule Out COVID-19 03/31/2021 03/31/2021 03/31/2021 7:10 AM EXECUTIVE VICE PRESIDENT Rule Out COVID-19 09/15/2022 09/15/2022 09/15/2022 9:15 AM CDT Assessment Noted Time PHQ-9 Depression Total Score: 10 019 7:03 AM CDT documented as of this encounter Care Teams Nuclear Medicine Specialist Relationship Specialty Start Date End Date Rosamaria Jones MD [address] [facility] [address] [place], [place] [address] PCP - General Internal Medicine 10/06/18 11/27/[address] [address] PCP - General 11/28/23 Madelaine Mitchell DO cyber intelligence analyst 07/26/16 Francesco Merritt MD [facility] [address] [place] [address] Family Medicine - Sports Medicine 12/14/18 Elaina Jiang APRN [employer] [address] [place] [address] Assigned PCP 10/27/19 04/03/21 Rosamaria Jones MD [address] [place] [address] Assigned PCP 04/04/21 05/08/21 Gabe Carl MD [address] [place] [address] [place] [place] [address] Assigned PCP 05/09/21 Danielle Alcantar MD [address] [place] [address] Assigned Musculoskeletal Provider 07/18/21 02/03/23 documented as of this encounter
--- OUTSIDE RECORDS SUMMARY | 2024-01-07 07:36 | XMS_ITS | Referral Summary ---
Author Organization [place] Address [address] [place] [address] Care Team Providers Care Manager Solution Name Role Phone Madelaine Mitchell Unavailable Francesco Merritt MD Unavailable [phone] Gabe Carl MD Unavailable [phone] [place] [address] Primary Care Provider Encounters Date Type Department Care Team Description 01/05/2024 Travel 01/05/2024 12:29 AM CDT - 01/05/2024 2:46 AM CDT Emergency [facility] Emergency Dept [address] [place] [address] Simone Kumar MD Alcohol withdrawal, uncomplicated (H) Discharge Disposition: Home or Self Care 01/03/2024 Travel 01/03/2024 12:57 AM CDT - 01/03/2024 4:39 AM CDT Emergency [facility] Emergency Dept [address] [place] [address] Angie Levi DO Alcohol dependence with uncomplicated withdrawal (H); Alcohol-induced acute pancreatitis without infection or necrosis; Nausea and vomiting, unspecified vomiting type; Benzodiazepine misuse Discharge Disposition: Home or Self Care 11/28/2023 Travel 11/28/2023 2:03 PM CDT - 11/28/2023 5:34 PM CDT Emergency [facility] Emergency Dept [address] [place] [address] Matt Clements MD Anxiety reaction; Benzodiazepine withdrawal [...] (ASTELIN) 0.1 % nasal sprayIndications:P ost-nasal drip [place] 1 spray into both nostrils 2 times daily 1 Bottle 11 10/22/2018 Active metFORMIN (GLUCOPHAGE-XR) 500 MG 24 hr tabletIndications: PCOS (polycystic ovarian syndrome) TAKE 4 TABLETS BY MOUTH DAILY 360 tablet 1 04/08/2019 Active nystatin (MYCOSTATIN) 578021 UNIT/ML suspension TAKE 6 ML BY MOUTH [...] daily for 10 days. 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 Plan colp 04/25/18 [place] - no visible lesions, no bx. Plan pap due in 1 year pap from previous pap 03/13/19 Pap reminder letter sent. ([facility]) 03/14/19 TE states pt is 25 weeks (ASAD 06/27/19), no appts in chart. ([facility]) CCT tracking Headache 12/16/2016 PCOS (polycystic ovarian [...] 01/03/2024 12:55 AM CDT Plan of Treatment Not on file [...] TYPES DNA CERVICAL Routine 03/28/2018 9:20 AM DESIGN DRAFTER CHIEF PCOS (polycystic ovarian syndrome) PAP IMAGED THIN LAYER SCREEN Routine 03/28/2018 9:09 AM DESIGN DRAFTER CHIEF Encounter for general adult medical examination with abnormal findings HIV ANTIGEN ANTIBODY COMBO Routine 05/05/2016 9:51 AM DESIGN DRAFTER CHIEF test positive from Last 3 Months or [...] MD LAB - BLOOD ORDERABL ES LABORATORY [facility] Acute Care Lab [address] Lab (1st floor, no room number) [place] [address], [facility] * (ABNORMAL) Basic metabolic panel (01/05/2024 1:38 AM CDT) Only the most recent of2 resultswithin the time period is included. [facility] Sodium 140 135 - 145 mmol/L 01/05/2024 [...] MD LAB - BLOOD ORDERABL ES LABORATORY [facility] Acute Care Lab [address] Lab (1st floor, no room number) [place] [address], [facility] * (ABNORMAL) UA with Microscopic [...] mg/dL 01/05/2024 2:04 AM CDT LABORATORY Specific [place] Urine 1.011 1.003 - 1.035 01/05/2024 2:04 [...] 44(H) <=5 /HPF 01/05/2024 2:04 AM CDT [facility] LABORATORY Squamous Epithelials Urine 15(H) <=1 /HPF 01/05/2024 2:04 AM CDT [facility] LABORATORY Urine MID-STREAM URINE SPECIMEN / Unknown Non-blood Collection / Unknown 01/05/2024 1:28 AM CDT 01/05/2024 1:51 AM CDT Narrative [facility] LABORATORY - 01/05/2024 2:04 AM CDT Urine Culture ordered based on laboratory criteria Yassine Cramer MD LAB - URINE ORDERABL ES LABORATORY [facility] Acute Care Lab [address] Lab (1st floor, no room number) [place] [address] * Urine Culture (01/05/2024 1:28 AM CDT) [...] - MICRO GENERAL ORDERABLES UU IDD LABORATORY [facility] Inf. Diseases Diag. Lab [address] [facility], [address] [place] [address], [facility] * EKG 12-lead, tracing only (01/05/2024 1:13 AM CDT) Only the most recent of3 resultswithin the time period is included. Systolic Blood Pressure mmHg RADIOLOGY RESULTS Diastolic Blood Pressure mmHg RADIOLOGY RESULTS Ventricular Rate 52 BPM RAD IOLOGY RESULTS Atrial Rate 52 BPM RADIOLOG Y RESULTS NE Interval 160 ms RADIOLOG Y RESULTS QRS Duration 86 ms RADIOLO GY RESULTS QT 446 ms RADIOLOGY RESULTS QTc 414 ms RADIOLOGY RESULTS P [place] 37 degrees RADIOLOGY RESULTS R AXIS 21 degrees RADIOLOGY RESULTS T [place] 13 degrees RADIOLOGY RESULTS Interpretation ECG Sinus bradycardia with sinus arrhythmia Cannot rule out Anterior infarct , age undetermined Abnormal ECG When compared with ECG of 03-Jan-2024 02:23, Vent. rate has decreased by ??41 bpm Confirmed by - EMERGENCY ROOM, PHYSICIAN ([id number]), primer expeditor and drier CROW MOTTA ([id number]) on 01/05/2024 6:42:05 AM RADIOLOGY RESULTS 01/05/2024 1:13 AM CDT 01/05/2024 6:42 AM CDT Yassine Cramer MD ECG ORDERABLES RADIOLOGY RESULTS * US Abdomen Limited (01/03/2024 3:23 AM CDT) Anatomical Region Laterality Modality Abdomen/Pelvis Ultrasound 01/03/2024 3:23 AM CDT Impressions 01/03/2024 3:30 AM CDT IMPRESSION: 1. ??Hepatomegaly and hepatic steatosis. 2. ??Normal gallbladder. Narrative 01/03/2024 3:30 AM CDT EXAM: US ABDOMEN LIMITED LOCATION: [facility] DATE: 01/03/2024 INDICATION: upper abdominal pain COMPARISON: [...] - 01/03/2024 EXAM: US ABDOMEN LIMITED LOCATION: [facility] DATE: 01/03/2024 INDICATION: upper abdominal pain COMPARISON: [...] steatosis. 2. Normal gallbladder. Angie Levi DO [facility] US ORDERABLES * (ABNORMAL) Lipase (01/03/2024 1:34 AM CDT) Lipase 85(H) 13 - 60 U/L 01/03/2024 2:01 AM CDT LABORATORY Blood BLOOD SPECIMEN / Unknown Venipuncture / Unknown 01/03/2024 1:34 AM CDT 01/03/2024 1:42 AM CDT Angie Levi DO LAB - BLOOD ORDERA BLES LABORATORY [facility] Acute Care Lab [address] [facility] Lab (1st floor, no room number) [place] [address], [facility] * HCG QUALitative (blood) (01/03/2024 1:34 AM CDT) Only the most recent of2 resultswithin the time period is included. hCG Serum Qualitative Negative Negative HERMILO 01/03/2024 2:09 AM CDT LABORATORY Comment:This test is for scr eening purposes. Results should be interpreted along with the clinical picture. Confirmation testing is available if warranted by ordering [id number], HCG Quantitative . Blood BLOOD SPECIMEN / Unknown Venipuncture / Unknown 01/03/2024 1:34 AM CDT 01/03/2024 1:42 AM CDT Angie Levi DO LAB - BLOOD ORDERA BLES RH LABORATORY [facility] Acute Care Lab [address] Lab (1st floor, no room number) [place] [address], [facility] * (ABNORMAL) Comprehensive metabolic panel (01/03/2024 1:34 AM CDT) Sodium 142 135 - 145 mmol/L 01/03/2024 2:01 AM CDT RH LABORATORY Potassium 3.5 3.4 - 5.3 mmol/L [...] >60 mL/min/1.7 3m2 01/03/2024 2:01 AM CDT [facility] LABORATORY Comment:eGFR calculated usin g 2020 CKD-EPI equation. Calcium 9.8 8.8 - 10.4 mg/dL 01/03/2024 2:01 AM CDT [facility] LABORATORY Comment:Reference intervals for this test were updated on 10/31/2023 to reflect our healthy population more accurately. There may be differences in the flagging of prior results with similar values performed with this method. Those prior results can be interpreted in the context of the updated reference intervals. Chloride 100 98 - 107 mmol/L 01/03/2024 2:01 AM CDT [facility] LABORATORY Glucose 119(H) 70 - 99 mg/dL 01/03/2024 2:01 AM CDT [facility] LABORATORY Alkaline Phosphatase 90 40 - 150 U/L 01/03/2024 2:01 AM CDT [facility] LABORATORY AST 25 0 - 45 U/L 01/03/2024 2:01 AM CDT [facility] LABORATORY ALT 28 0 - 50 U/L 01/03/2024 2:01 AM CDT [facility] LABORATORY Protein Total 8.2 6.4 - 8.3 g/dL 01/03/2024 2:01 AM CDT RH LABORATORY Albumin 5.3(H) 3.5 - 5.2 g/dL 01/03/2024 2:01 AM CDT RH LABORATORY Bilirubin Total 0.2 <=1.2 mg/dL 01/03/2024 2:01 AM CDT [facility] LABORATORY Blood BLOOD SPECIMEN / Unknown Venipuncture / Unknown 01/03/2024 1:34 AM CDT 01/03/2024 1:42 AM CDT Angie Levi DO LAB - BLOOD ORDERA BLES [facility] Lab [address] [employer] Lab (1st floor, no room number) [address] * (ABNORMAL) Alcohol level blood (01/03/2024 1:34 AM CDT) Alcohol ethyl 0.08(H) <=0.01 g/dL 01/03/2024 2:01 AM CDT RH LABORATORY Blood BLOOD SPECIMEN / Unknown Venipuncture / Unknown 01/03/2024 1:34 AM CDT 01/03/2024 1:42 AM CDT Angie Levi DO LAB - BLOOD ORDERA BLES [facility] Lab [address] Lab (1st floor, no room number) [address] * (ABNORMAL) Glucose by meter (01/03/2024 1:30 AM CDT) GLUCOSE BY METER POCT 123(H) 70 - 99 mg/dL 01/03/2024 1:38 AM CDT LABORATORY POC Blood, Capillary BLOOD SPECIMEN / Unknown 01/03/2024 1:30 AM CDT 01/03/2024 1:38 AM CDT Angie JONES - DAPHNIE POCT LABORATORY [facility] Acute Care Lab [address] Lab (1st floor, no room number) [place] [address] * CTA Head Neck w Contrast (11/28/2023 [...] reconstruction technique CHRIS BOONE MD SYSTEM ID: ??[id number] Narrative 11/28/2023 4:[address] ANGIOGRAM [...] reconstruction technique CHRIS BOONE MD SYSTEM ID: [id number] Matt Clements MD IMG CT ORDERABL ES [...] reconstruction technique CHRIS BOONE MD SYSTEM ID: ??[id number] Narrative 11/28/2023 4:[address] OF THE HEAD WITHOUT CONTRAST 11/28/2023 3:58 PM COMPARISON: Head CT 09/15/2022. HISTORY: ??Headache. TECHNIQUE: Axial CT images of the head from the skull base to the vertex were acquired without IV contrast. FINDINGS: The ventricles and basal cisterns are within normal limits in configuration. There is no midline shift. There are no extra-axial fluid collections. Aamya-white differentiation is well maintained. No intracranial hemorrhage, [...] reconstruction technique CHRIS BOONE MD SYSTEM ID: [id number] Matt Clements MD IMG CT ORDERABL ES * Extra Red Top Tube (11/28/2023 12:57 PM CDT) [facility] Signature Hold Specimen [facility] 11/28/2023 2:16 PM CDT LABORATORY Blood STRUCTURE OF LEFT UPPER LIMB / Unknown Venipuncture / Unknown 11/28/2023 12:57 PM CDT 11/28/2023 1:10 PM CDT Matt Clements MD LAB - BLOOD ORD ERABLES [facility] Acute Care Lab [address] [employer] Lab (1st floor, no room number) [place] [address] * Extra Blue Top Tube (11/28/2023 12:57 PM CDT) Hold Specimen [facility] 11/28/2023 2:16 PM CDT LABORATORY Blood STRUCTURE OF LEFT UPPER LIMB / Unknown Venipuncture / Unknown 11/28/2023 12:57 PM CDT 11/28/2023 1:10 PM CDT Matt Clements MD LAB - BLOOD ORD ERABLES [facility] Acute Care Lab [address] Lab (1st floor, no room number) [place] [address], [place] * Troponin T, High Sensitivity (11/28/2023 12:57 [...] Clements MD LAB - BLOOD ORD ERABLES [facility] Acute Care Lab [address] [employer] Lab (1st floor, no room number) [place] [address] * TSH with free T4 reflex (11/28/2023 12:57 PM CDT) Pathologist [facility] TSH 0.42 0.30 - 4.20 uIU/mL 11/28/2023 2:42 PM CDT LABORATORY Blood STRUCTURE OF LEFT UPPER LIMB / Unknown Venipuncture / Unknown 11/28/2023 12:57 PM CDT 11/28/2023 1:10 PM CDT Matt Clements MD LAB - BLOOD ORD ERABLES [facility] Acute Care Lab [address] Lab (1st floor, no room number) [address] * Magnesium (11/28/2023 12:57 PM CDT) Magnesium 2.0 1.7 - 2.3 mg/dL 11/28/2023 2:31 PM CDT LABORATORY Blood STRUCTURE OF LEFT UPPER LIMB / Unknown Venipuncture / Unknown 11/28/2023 12:57 PM CDT 11/28/2023 1:10 PM CDT Matt Clements MD LAB - BLOOD ORD ERABLES LABORATORY [facility] Acute Care Lab [address] [facility] Lab (1st floor, no room number) [address] * (ABNORMAL) HPV High Risk Types DNA Cervical (03/28/2018 9:20 AM DESIGN DRAFTER CHIEF) HPV Source [facility] 04/03/2018 7:38 AM DESIGN DRAFTER CHIEF [facility] HPV 16 DNA Negative NEG^Nega tive 04/03/2018 4:18 PM DESIGN DRAFTER CHIEF [facility] HPV 18 DNA Negative NEG^Nega tive 04/03/2018 4:18 PM DESIGN DRAFTER CHIEF [facility] Other HR HPV Positive(A) NEG^Nega tive 04/03/2018 4:18 PM DESIGN DRAFTER CHIEF [facility] Final Diagnosis This patient's sample is positive for other HR HPV DNA (types 31, 33, 35, 39, 45, 51, 52, 56, 58, 59, 66 or 68), not HPV 16 or HPV 18 DNA. This result requires clinical correlation with concurrent cytology findings. 04/03/2018 4:18 PM DESIGN DRAFTER CHIEF [facility] Comment: This test was developed and its performance characteristics determined by the [facility], Molecular Diagnostics Laboratory. It has not [...] Specimen Description Cervical Cells 04/03/2018 7:38 AM DESIGN DRAFTER CHIEF [facility] Comment:[id number] 03/28/2018 9:20 AM DESIGN DRAFTER CHIEF 03/28/2018 2:56 PM DESIGN DRAFTER CHIEF Tristen Jiang APRN REFERRAL AGENT LAB - BLOOD ORDERABLES [facility] [address] [place] [address] * (ABNORMAL) Pap imaged thin layer screen reflex to HPV if ASCUS - recommend age 25 - 29 (03/28/2018 9:09 AM DESIGN DRAFTER CHIEF) PAP ASC-US(A) JOSE JUAN Singh Report Patient Name: MADI MOSS MR#: [id number] Specimen #: [id number] Collected: 03/28/2018 Received: 03/29/2018 Reported: 04/02/2018 14:41 [...] Carmine Stevens M.D. Processed and screened at [facility], Pending Sale To [facility] CLINICAL HISTORY: LMP: 03/05/2018 A previous normal pap Date of Last Pap: 01/01/2015, Papanicolaou Test Limitations: ??Cervical cytology is a screening test with limited sensitivity; regular screening is critical for cancer prevention; Pap tests are primarily effective for the diagnosis/preventi on of squamous cell carcinoma, not adenocarcinomas or other cancers. TESTING LAB LOCATION: [address] ??[id number] COLLECTION SITE: Client: ??[facility] Location: [facility] Cytologic material (specimen) 03/28/2018 9:09 AM DESIGN DRAFTER CHIEF 03/29/2018 11:25 AM DESIGN DRAFTER CHIEF Tristen Jiang APRN REFERRAL AGENT LAB - OPTIME CLINICAL SPECIMEN [facility] * HIV Antigen Antibody Combo (05/05/2016 9:51 AM DESIGN DRAFTER CHIEF) HIV Antigen Antibody Combo Nonreactive HIV-1 p24 Ag & HIV-1/HIV-2 Ab Not Detected NR [facility] Blood specimen (specimen) 05/05/2016 9:51 AM DESIGN DRAFTER CHIEF 05/05/2016 9:56 AM DESIGN DRAFTER CHIEF Madelaine Mitchell DO LAB - BLOOD ORDER MENDEZ [facility] [address] [place], [place] [address] from Last 3 Months or Most Recently Relevant to Health Maintenance Care Teams Manager Solution Relationship Specialty Start Date End Date [address] [address] PCP - General 11/28/23 Madelaine Mitchell DO 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
--- OUTSIDE RECORDS SUMMARY | 2024-01-07 07:36 | XMS_ITS | Encounter Summary ---
Author Organization [place] Address [address] [place] [address] Care Team Providers Care Registered Land Surveyor Name Role Phone Madelaine Mitchell DO Unavailable Rosamaria Jones MD Primary Care Provider Francesco Merritt MD Unavailable [phone] Loyda Farmer MD Unavailable CreElaina morales APRN [facility] Unavailable [phone] Rosamaria Jones MD Unavailable Gabe Carl MD Unavailable [phone] Danielle Alcantar MD Unavailable [facility] Primary Care Provider Reason for Visit * Reason Comments Medication Refill Encounter Details Date Type Department Care Team (Late st Contact Info) Description 10/13/2019 Refill [facility] [address] [place] [address] Madelaine Mitchell DO [address] [facility] 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 Rule Out COVID-19 09/15/2022 09/15/2022 09/15/2022 9:15 AM CDT Assessment Noted Time PHQ-9 Depression Total Score: 10 019 7:03 AM CDT documented as of this encounter Care Teams Registered Land Surveyor Relationship Specialty Start Date End Date Rosamaria Jones MD [address] [facility] [address] [place] [address] PCP - General Internal Medicine 10/06/18 11/27/[address] [address] PCP - General 11/28/23 Madelaine Mitchell DO small arms artillery repairer 07/26/16 Francseco Merritt MD [address] [place] [address] Family Medicine - Sports Medicine 12/14/18 Loyda Farmer MD [address] [place] [address] Assigned PCP 09/29/19 10/26/19 Elaina Jiang APRN CNP [address] [place] [address] Assigned PCP 10/27/19 04/03/21 Rosamaria Jones MD [address] [facility] [address] [place] [address] Assigned PCP 04/04/21 05/08/21 Gabe Carl MD [address] [facility] VINICIUS MANNING [address] Assigned PCP 05/09/21 Danielle Alcantar MD [address] [place] [address] Assigned Musculoskeletal Provider 07/18/21 02/03/23 documented as of this encounter
--- OUTSIDE RECORDS SUMMARY | 2024-01-07 07:36 | XMS_ITS | Encounter Summary ---
Author Organization [place] Address [address] [place] [address]. [place] [address] Care Team Providers Care Dietary Services Director Name Role Phone Madelaine Mitchell DO Unavailable [phone] Rosamaria Jones MD Primary Care Provider [phone] Francesco Merritt MD Unavailable [phone] Gabe aCrl MD Unavailable [phone] Danielle Alcantar MD Unavailable [phone] [facility] Primary Care Provider Encounter Details Date Type Department Care Team (Late st Contact Info) Description 08/27/2021 MyC Medical Advice M [facility] [address] 5[address] [place] [address] Danielle Wright, PT [address] [address] Social History Tobacco Use Types Packs/Day Years [...] PHQ-9 Depression Total Score: 022 9:03 AM SUPERVISOR MAINTENANCE AND CUSTODIANS documented as of this encounter Care Teams Dietary Services Director Relationship Specialty Start Date End Date Rosamaria Jones MD [address] [facility] [address] [place] [address] PCP - General Internal Medicine 10/06/18 11/27/[address] [address] PCP - General 11/28/23 Madelaine Mitchell DO java tech lead 07/26/16 Francesco Merritt MD [address] [place] [address] Family Medicine - Sports Medicine 12/14/18 Gabe Carl MD [address] [place] [address] [place] [address] Assigned PCP 05/09/21 Danielle Alcantar MD [address] [place] [address] Assigned Musculoskeletal Provider 07/18/21 02/03/23 documented as of this encounter
--- OUTSIDE RECORDS SUMMARY | 2024-01-07 07:36 | XMS_ITS | Encounter Summary ---
Author Organization [place] Address [address] [place] [address] Care Team Providers Care Sample Tester Name Role Phone Madelaine Mitchell DO Unavailable [phone] Rosamaria Jones MD Primary Care Provider [phone] Francesco Merritt MD Unavailable Elaina Jiang APRN [facility] Unavailable [phone] Rosamaria Jones MD Unavailable Gabe Carl MD Unavailable [phone] Danielle Alcantar MD Unavailable [facility] Primary Care Provider Encounter Details Date Type Department Care Team (Late st Contact Info) Description 07/10/2020 [facility] Medical Advice [facility] [address] [place] [phone] Madelaine Mitchell DO [address] [facility] WILLIAM [address] [place], [place] [address] Social History Tobacco Use Types Packs/Day Years [...] Out COVID-19 03/31/2021 03/31/2021 03/31/2021 7: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 Out COVID-19 09/15/2022 09/15/2022 09/15/2022 9:15 AM CDT Assessment Noted Time PHQ-9 Depression Total Score: 10 019 7:03 AM CDT documented as of this encounter Care Teams Sample Tester Relationship Specialty Start Date End Date Rosamaria Jones MD [address] [place] [address] [place] [address] PCP - General Internal Medicine 10/06/18 11/27/[address] [address] PCP - General 11/28/23 Madelaine Mitchell DO die maker 07/26/16 Francesco Merritt MD [facility] [address] [address] Family Medicine - Sports Medicine 12/14/18 Elaina Jiang APRN CNP [address] [place], [place] [address] Assigned PCP 10/27/19 04/03/21 Rosamaria Jones MD [address] [address] [place] [address] Assigned PCP 04/04/21 05/08/21 Gabe Carl MD [address] [facility] VINICIUS MANNING [address] Assigned PCP 05/09/21 Danielle Alcantar MD [address] [place], [place] [address] Assigned Musculoskeletal Provider 07/18/21 02/03/23 documented as of this encounter
--- OUTSIDE RECORDS SUMMARY | 2024-01-07 07:36 | XMS_ITS | Encounter Summary ---
Author Organization [place] Address [address] [place] [address]. [place] [address] Care Team Providers Care Ginger Farmer Name Role Phone Madelaine Mitchell DO Unavailable [phone] Rosamaria Jones MD Primary Care Provider Francesco Merritt MD Unavailable Gabe Carl MD Unavailable [phone] Danielle Alcantar MD Unavailable [phone] [facility] Primary Care Provider Encounter Details Date Type Department Care Team (Late st Contact Info) Description 01/08/2023 MyC Medical Advice [facility] [address] [place] [address] Francesco Merritt MD [address] [place] [address] [address] [place], [place] [address] Social History Tobacco Use Types Packs/Day Years [...] documented as of this encounter Care Teams Ginger Farmer Relationship Specialty Start Date End Date Rosamaria Jones MD [address] [facility] [address] [place] [address] PCP - General Internal Medicine 10/06/18 11/27/[address] [address] PCP - General 11/28/23 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
--- OUTSIDE RECORDS SUMMARY | 2024-01-07 07:36 | XMS_ITS | Encounter Summary ---
Author Organization [facility] Address [address] [place] [address]. [place] [address] Care Team Providers Care Fur Remodeler Name Role Phone Madelaine Mitchell DO Unavailable Francesco Merritt MD Unavailable Gabe Carl MD Unavailable [phone] [place] [address] Primary Care Provider Reason for Visit * Reason Comments Chest Pain Encounter Details Date Type Department Care Team (Late st Contact Info) Description 11/28/2023 2:03 PM CDT - 11/28/2023 5:34 PM CDT Emergency [facility] Emergency Dept [address] [place] [address] [phone] Matt Clements MD [address] [place] [address] Anxiety reaction; Benzodiazepine withdrawal without complication (H) [...] (ASTELIN) 0.1 % nasal sprayIndications:Post- nasal drip [place] 1 spray into both nostrils 2 times [...] muscle spasms 20 tablet 04/30/2021 nystatin (MYCOSTATIN) [id number] UNIT/ML suspension TAKE 6 ML BY MOUTH [...] help her sleep. Review of External Notes [place] notes reviewed from 12/14/2023. The patient is followed for pituitary adenoma. Past Medical History Medical History and Problem List Frequent UTI Gastritis Depression PCOS Anxiety Mononucleosis Shingles Carcinoid tumor of right lung Pre-diabetes Exercise-induced asthma Arthritis Medications Buspar Metformin Relafen [place] Flexeril Ativan Albuterol Ambien Robaxin Vistaril Roxicodone [...] Bilirubin Urine Negative Ketones Urine Negative Specific [place] Urine 1.017 Blood Urine Negative pH Urine [...] reconstruction technique CHRIS BOONE MD SYSTEM ID: [id number] CT Head w/o Contrast Final Result IMPRESSION: Normal head CT. Radiation dose for this scan was reduced using automated exposure control, adjustment of the mA and/or kV according to patient size, or iterative reconstruction technique CHRIS BOONE MD SYSTEM ID: [id number] EKG ECG taken at 1243, ECG read at 1415 Normal sinus rhythm No significant change as compared to prior, dated 09/15/22. Rate 70 bpm. FL interval 156 ms. QRS duration 88 ms. [...] Any # urogenital alanna, single or mixed [facility] Emergency Dept discharge antibiotic prescribed (If applicable): None Treatment recommendations per [facility] ED Lab Result Urine Culture protocol: No [...] reconstruction technique CHRIS BOONE MD SYSTEM ID: ??[id number] Narrative 11/28/2023 4:[address] ANGIOGRAM [...] reconstruction technique CHRIS BOONE MD SYSTEM ID: [id number] Matt Clements MD IMG CT ORDERABL ES [...] reconstruction technique CHRIS BOONE MD SYSTEM ID: ??[id number] Narrative 11/28/2023 4:[address] OF [...] reconstruction technique CHRIS BOONE MD SYSTEM ID: [id number] Matt Clements MD IMG CT ORDERABL ES * Urine Culture (11/28/2023 2:43 PM CDT) Culture 50,000-100,000 CFU/mL Mixture of urogenital alanna 11/30/2023 1:11 PM CDT [facility] Urine MID-STREAM URINE SPECIMEN / Unknown Non-blood Collection / Unknown 11/28/2023 2:43 PM CDT 11/28/2023 3:13 PM CDT Matt Clements MD LAB - MICRO GEN ERAL ORDERABLES [facility] [address] [facility], [address] [place] [address] * (ABNORMAL) UA with Microscopic reflex to [...] mg/dL 11/28/2023 3:17 PM CDT LABORATORY Specific [place] Urine 1.017 1.003 - 1.035 11/28/2023 3:17 [...] Tyree MD LAB - URINE ORD ERABLES [facility] [address] Lab (1st floor, no room number) [place] [phone] * HCG qualitative Blood (11/28/2023 12:57 PM CDT) hCG Serum Qualitative Negative Negative HERMILO 11/28/2023 2:33 PM CDT LABORATORY Comment:This test is for scr eening purposes. Results should be interpreted along with the clinical picture. Confirmation testing is available if warranted by ordering [id number], HCG Quantitative . Blood STRUCTURE OF LEFT UPPER LIMB / Unknown Venipuncture / Unknown 11/28/2023 12:57 PM CDT 11/28/2023 1:10 PM CDT Matt Clements MD LAB - BLOOD ORD ERABLES Performing Organization Address [facility]/ZIP Co de Phone Number [facility] [address] Lab (1st floor, no room number) [place] [phone] * TSH with free T4 reflex (11/28/2023 12:57 PM CDT) Pathologist [facility] TSH 0.42 0.30 - 4.20 uIU/mL 11/28/2023 2:42 PM CDT LABORATORY Blood STRUCTURE OF LEFT UPPER LIMB / Unknown Venipuncture / Unknown 11/28/2023 12:57 PM CDT 11/28/2023 1:10 PM CDT Matt Clements MD LAB - BLOOD ORD ERABLES [facility] [address] Lab (1st floor, no room number) [place] [phone] * Magnesium (11/28/2023 12:57 PM CDT) Pathologist [facility] Magnesium 2.0 1.7 - 2.3 mg/dL 11/28/2023 2:31 PM CDT [facility] Blood STRUCTURE OF LEFT UPPER LIMB / Unknown Venipuncture / Unknown 11/28/2023 12:57 PM CDT 11/28/2023 1:10 PM CDT Matt Clements MD LAB - BLOOD ORD ERABLES [facility] Lab [address] Lab (1st floor, no room number) [place] [address], [place] * Extra Red Top Tube (11/28/2023 12:57 PM CDT) Hold Specimen C 11/28/2023 2:16 PM CDT [facility] Blood STRUCTURE OF LEFT UPPER LIMB / Unknown Venipuncture / Unknown 11/28/2023 12:57 PM CDT 11/28/2023 1:10 PM CDT Matt Clements MD LAB - BLOOD ORD ERAINDIRA [facility] [address] Lab (1st floor, no room number) [place] [phone] [place] [address] * Extra Blue Top Tube (11/28/2023 12:57 PM CDT) Hold Specimen JIC 11/28/2023 2:16 PM CDT [facility] Blood STRUCTURE OF LEFT UPPER LIMB / Unknown Venipuncture / Unknown 11/28/2023 12:57 PM CDT 11/28/2023 1:10 PM CDT Matt Clements MD LAB - BLOOD ORD ERABLES [facility] [address] Lab (1st floor, no room number) [place] [address] * CBC with platelets and differential [...] MD LAB - BLOOD ORD ERABLES LABORATORY [facility] Lab [address] Lab (1st floor, no room number) [place] [address], [facility] * Troponin T, High Sensitivity (11/28/2023 12:57 PM CDT) [facility] Troponin T, High Sensitivity <6 <=14 ng/L [...] MD LAB - BLOOD ORD ERABLES LABORATORY [facility] Lab [address] Lab (1st floor, no room number) [place] [address], [facility] * (ABNORMAL) Basic metabolic panel [...] MD LAB - BLOOD ORD ERABLES LABORATORY [facility] Lab [address] Lab (1st floor, no room number) [place] [address], [facility] * EKG 12-lead, tracing only (11/28/2023 12:43 PM CDT) Systolic Blood Pressure mmHg RADIOLOGY RESULTS Diastolic Blood Pressure mmHg RADIOLOGY RESULTS Ventricular Rate 70 BPM RAD IOLOGY RESULTS Atrial Rate 70 BPM RADIOLOG Y RESULTS FL Interval 156 ms RADIOLOG Y RESULTS QRS Duration 88 ms RADIOLO GY RESULTS QT 388 ms RADIOLOGY RESULTS QTc 419 ms RADIOLOGY RESULTS P [place] 12 degrees RADIOLOGY RESULTS R AXIS 35 degrees RADIOLOGY RESULTS T [place] 6 degrees RADIOLOGY RESULTS Interpretation ECG Sinus rhythm Normal ECG When compared with ECG of 15-Sep-2022 08:14, No significant change was found Unconfirmed report - interpretation of this ECG is computer generated - see medical record for final interpretation Confirmed by - EMERGENCY ROOM, PHYSICIAN ([id number]), industrial editor José Olsen ([id number]) on 11/28/2023 2:10:41 PM RADIOLOGY RESULTS 11/28/2023 12:4 3 PM CDT 11/28/2023 2:10 PM CDT Matt Clements MD ECG ORDERABLES RADIOLOGY RESULTS documented in this encounter Visit Diagnoses Diagnosis Anxiety reaction Anxiety state, unspecified Benzodiazepine withdrawal without complication documented in this encounter Administered Medications Inactive [...] documented as of this encounter Care Teams Fur Remodeler Relationship Specialty Start Date End Date [facility], [address] [address] PCP - General 11/28/23 Madelaine Mitchell DO 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
--- OUTSIDE RECORDS SUMMARY | 2024-01-07 07:36 | XMS_ITS | Encounter Summary ---
Author Organization [facility] Address [address] [place] [address] Care Team Providers Care Recreational Therapy Technician Name Role Phone Madelaine Mitchell DO Unavailable Rosamaria Jones MD Primary Care Provider Francesco Merritt MD Unavailable Gabe Carl MD Unavailable [phone] Danielle Alcantar MD Unavailable [facility] Primary Care Provider Reason for Referral * Infertility Artificial Insemination (Routine: Next available opening) - Closed Specialty Diagnoses / Procedures Referred By Contjoaquin t Referred To Contact Diagnoses [place] [address] [place] [address] [facility] [address] [place] [phone] Referral ID Status Reason Start Date Expiration Date Visits Re quested Visits Authorized [id number] Closed 06/07/2021 06/07/2022 1 1 Question Answer [...] or coverage questions. [facility]: [phone] [facility] [phone] [facility]. ([facility]) [phone] Other (external) - Use Comments Please call to schedule your appointment JOGGER Encounter Details Date Type Department Care Team (Late st Contact Info) Description 06/03/2021 MyC Medical Advice [facility] [address] [place] [address] Madelaine Mitchell DO [address] [place] [address] Anovulation (Primary Dx) Social History [...] Depression Total Score: 10 022 9:03 AM BOOK JOGGER documented as of this encounter Care Teams Recreational Therapy Technician Relationship Specialty Start Date End Date Rosamaria Jones MD [address] [place], [place] [phone] PCP - General Internal Medicine 10/06/18 11/27/[address] [id number] PCP - General 11/28/23 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
--- OUTSIDE RECORDS SUMMARY | 2024-01-07 07:36 | XMS_ITS | Encounter Summary ---
Author Organization [place] Address [address] [place] [address] Care Team Providers Care Caul Puller Name Role Phone Madelaine Mitchell DO Unavailable Francesco Merritt MD Unavailable Gabe Carl MD Unavailable [phone] [place] [address] Primary Care Provider Reason for Visit * Reason Comments Dizziness Headache Anxiety Encounter Details Date Type Department Care Team (Late st Contact Info) Description 01/05/2024 12:29 AM CDT - 01/05/2024 2:46 AM CDT Emergency [facility] Emergency Dept [address] [place] [address] [phone] Simone Kumar MD [facility] [address] [place], [place] [id number] Alcohol withdrawal, uncomplicated (H) Discharge Disposition: Home [...] CDT Temperature 35.8 ??C (96.4 ??F) 01/05/2024 12:30 AM C DT Respiratory Rate 19 01/05/2024 2:05 AM CDT Oxygen Saturation 100% 01/05/2024 2:45 AM CDT Inhaled Oxygen Concentration - - Weight - - Height - - Body Mass Index - - documented in this encounter Discharge Instructions * Discharge Instructions* Simone Kumar MD - 01/05/2024 2:36 AM CDT It was a pleasure taking care of you today. I hope you feel much better soon. Your evaluation was reassuring. Please follow-up with your primary care doctor in 5-7 days. Return immediately for shaking, seizures, vomiting, or any other concerns. * Attachments The following attachments cannot be sent through Care Everywhere. * Alcohol Withdrawal: General Info (Vincentian) documented in this encounter Medications at Time of Discharge Medication Sig Dispensed Refills Start Date End Date chlordiazePOXIDE (LIBRIUM) 25 MG capsule Take 1 capsule (25 mg) by mouth 3 times daily as needed for anxiety. 15 capsule 01/03/2024 azelastine (ASTELIN) 0.1 % nasal sprayIndications:Post -nasal drip [place] 1 spray into both nostrils 2 times daily 1 Bottle 11 10/22/2018 BIOTIN PO diazepam (VALIUM) 2 MG tablet 1 TABLET BY MOUTH NIGHTLY FOR 14 NIGHTS, THEN DISCONTINUE. 06/22/2021 famotidine (PEPCID) 20 MG tablet Take 1 tablet (20 mg) by mouth 2 times daily for 10 days. 20 tablet 01/03/2024 01/13/2024 hydrOXYzine (ATARAX) 25 MG tablet Take 25 mg by mouth 3 times daily as needed for itching ibuprofen (ADVIL/MOTRIN) 200 MG tablet Take 3 tablets (600 mg) by mouth every 8 hours as needed for mild pain 1 tablet 12/24/2020 letrozole (FEMARA) 2.5 MG tabletIndications:Ano vulation Take 1 tablet (2.5 mg) by mouth See Admin Instructions 35 tablet 03/18/2021 loratadine (CLARITIN) 10 MG tablet Take 10 mg by mouth daily LORazepam (ATIVAN) 0.5 MG tablet Take 0.5 mg by mouth 2 times daily as needed for anxiety. metFORMIN (GLUCOPHAGE-XR) 500 MG 24 hr tabletIndications:PCO S (polycystic ovarian syndrome) TAKE 4 TABLETS BY MOUTH DAILY 360 tablet 1 04/08/2019 methocarbamol (ROBAXIN) 500 MG tabletIndications:Tra pezius muscle spasm,Left arm numbness Take 1-2 tablets (500-1,000 mg) by mouth 4 times daily as needed for muscle spasms 20 tablet 04/30/2021 nystatin (MYCOSTATIN) 660504 UNIT/ML suspension TAKE 6 ML BY MOUTH [...] for nausea or vomiting 20 tablet 03/31/2021 ondansetron (ZOFRAN ODT) 4 MG ODT tab Take 1 tablet (4 mg) by mouth every 8 hours as needed for nausea. 10 tablet 01/03/2024 01/06/2024 documented as of this encounter ED Notes * Simone Kumar MD - 01/05/2024 1:47 AM CDT Emergency Department Note History of Present Illness Chief Complaint Dizziness, Headache, and Anxiety HPI Neda Moss is a 33 year old female with history of carcinoid tumor of right lung, alcohol abuse, prediabetes, and PCOS who presents to the ED via EMS for evaluation of dizziness, headache, and anxiety. Patient has been experiencing withdrawal symptoms and was seen in this ED 2 days prior. Last drink was Monday (3 days prior). Neda took her librium as prescribed with some improvement. She also took her lorazepam as prescribed but developed a mild headache and felt lightheaded. She noted her heart rate was bradycardic at 45 bpm into the 50s. She called the Nurse Line and was referredto the ED for further evaluation. Patient got here and felt better except for the headache was still present. No confusion, visual or auditory hallucinations, confusion, or other concerns. Independent Historian None Review of External Notes Reviewed outside health system ED visit from 01/02/2024 regarding alcohol intoxication Past Medical History Medical History and Problem List Frequent UTI Gastritis Major depressive disorder Patellofemoral arthritis of left knee PCOS Anxiety Alcohol abuse Alcohol withdrawal syndrome Carcinoid tumor of right lung Erosive gastritis Gastroenteritis Migraine Mastitis Insomnia Lung nodules Pituitary adenoma Pneumonia Prediabetes Asthma Corneal ulcer Medications Chlordiazepoxide Famotidine Ondansetron Lorazepam Albuterol Hydroxyzine pamoate Oxycodone Surgical History Colonoscopy Brinkley teeth extraction Knee surgery Lasik bilateral ORIF left patella Upper GI endoscopy Colposcopy Right lung resection Physical Exam Patient Vitals for the past 24 hrs: BP Temp Temp src Pulse Resp SpO2 01/05/24 0245 (!) 140/90 -- -- 70 -- 100 % 01/05/24 0205 (!) 142/106 -- -- 71 19 91 % 01/05/24 0153 -- -- -- 68 14 99 % 01/05/24 0130 (!) 146/98 -- -- 73 15 99 % 01/05/24 0120 (!) 142/102 -- -- 54 16 99 % 01/05/24 0043 (!) 137/98 -- -- (!) 48 -- -- 01/05/24 0037 (!) 137/98 -- -- 54 12 97 % 01/05/24 0030 (!) 137/98 (!) 96.4 ??F (35.8 ??C) Temporal 66 18 99 % Physical Exam Constitutional: Alert, attentive HENT: Nose: Nose normal. Mouth/Throat: Oropharynx is clear, mucous membranes are moist Eyes: EOM are normal. CV: regular rate and rhythm; no murmurs, rubs or gallups Chest: Effort normal and breath sounds normal. GI: There is no tenderness. No distension. Normal bowel sounds MSK: Normal range of motion. Neurological: Alert, attentive. No tongue fasciculations or upper extremity tremor, no evidence of hallucinations Skin: Skin is warm and dry. Diagnostics Lab Results Labs Ordered and Resulted from Time of ED Arrival to Time of ED Departure ROUTINE UA WITH MICROSCOPIC REFLEX TO CULTURE - Abnormal Result Value Color Urine Light Yellow Appearance Urine Slightly Cloudy (*) Glucose Urine Negative Bilirubin Urine Negative Ketones Urine Negative Specific [place] Urine 1.011 Blood Urine Trace (*) pH Urine 7.0 Protein Albumin Urine Negative Urobilinogen Urine Normal Nitrite Urine Negative Leukocyte Esterase Urine Large (*) Bacteria Urine Moderate (*) Mucus Urine Present (*) RBC Urine 5 (*) WBC Urine 44 (*) Squamous Epithelials Urine 15 (*) BASIC METABOLIC PANEL - Abnormal Sodium 140 Potassium 3.9 Chloride 102 Carbon Dioxide (CO2) 23 Anion Gap 15 Urea Nitrogen 17.3 Creatinine 0.73 GFR Estimate >90 Calcium 9.6 Glucose 105 (*) CBC WITH PLATELETS AND DIFFERENTIAL WBC Count 6.4 RBC Count 4.08 Hemoglobin 12.6 Hematocrit 39.1 MCV 96 MCH 30.9 MCHC 32.2 RDW 12.9 Platelet Count 190 % Neutrophils 54 % Lymphocytes 33 % Monocytes 7 % Eosinophils 5 % Basophils 1 % Immature Granulocytes 0 NRBCs per 100 WBC 0 Absolute Neutrophils 3.4 Absolute Lymphocytes 2.1 Absolute Monocytes 0.5 Absolute Eosinophils 0.3 Absolute Basophils 0.0 Absolute Immature Granulocytes 0.0 Absolute NRBCs 0.0 URINE CULTURE EKG ECG taken at 0113, ECG read at 0113 Sinus bradycardia with sinus arrhythmia Cannot rule out Anterior infarct, age undetermined Abnormal ECG Rate 52 bpm. CO interval 160 ms. QRS duration 86 ms. QT/QTc 446/414 ms. P-R-T axes 37 21 13. Independent Interpretation None ED Course Medications Administered Medications diphenhydrAMINE (BENADRYL) injection 25 mg (25 mg Intravenous $Given 01/05/24 0200) metoclopramide (REGLAN) injection 10 mg (10 mg Intravenous $Given 01/05/24 0201) diazepam (VALIUM) tablet 5 mg (5 mg Oral $Given 01/05/24 0243) Procedures Procedures Discussion of Management None ED Course ED Course as of 01/05/24 0548 MonJan 05, 2024 0147 I obtained history and examined the patient as noted above. Additional Documentation None Medical Decision Making / Diagnosis [facility] Diagnoses: None MIPS None MDM Neda Moss is a 33 year old female with history of alcohol dependence who presents for evaluation of the above symptoms. She has been managing her alcohol withdrawal with outpatient medicationspreviously prescribed. Symptoms are resolved at this time. Certainly the palpitations and lightheadedness, with mild headache, could represent mild alcohol withdrawal symptoms. She has a normal neurologic exam and cardiopulmonary exam. Screening labs are reassuring and she remains asymptomatic in the department. Plan discharge home with continued supportive cares and primary care follow-up in 3 to 5 days. Return precautions for any concerns. Disposition The patient was discharged. Diagnosis ICD-10-CM 1. Alcohol withdrawal, uncomplicated (H) F10.930 Discharge Medications Discharge Medication List as of 01/05/2024 2:40 AM Scribe Disclosure: I, Catalina Jimenez, am serving as a scribe at 3:49 AM on 01/05/2024 to document services personallyperformed by Simone Kumar MD based on my observations and the provider's statements to me. Simone Kumar MD 01/05/24 0635 * Ana M Ibrahim RN - 01/05/2024 1:13 AM CDT Bed: ED16 Expected date: Expected time: Means of arrival: Comments: S.G. * Shantal Petersen RN - 01/05/2024 12:37 AM CDT Pt arrived via EMS from home with c/o of dizziness, QUIROGA, and anxiety related heart palpitations. PerEMS pt HR in the 40s and was given 324 ASA. 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 Otherwise vss documented in this encounter Plan of Treatment Not on file documented as of this encounter Procedures Procedure Name Priority Date/Time Associated Diagnosis Comments CBC WITH PLATELETS AND DIFFERENTIAL STAT 01/05/2024 1:38 AM CDT CBC WITH PLATELETS & DIFFERENTIAL STAT 01/05/2024 1:38 AM CDT BASIC METABOLIC PANEL STAT 01/05/2024 1:38 AM CDT ROUTINE UA WITH MICROSCOPIC REFLEX TO CULTURE STAT 01/05/2024 1:28 AM CDT URINE CULTURE STAT 01/05/2024 1:28 AM CDT EKG 12-LEAD, TRACING ONLY STAT 01/05/2024 1:13 AM CDT documented in this encounter Results * CBC with platelets and differential (01/05/2024 1:38 AM CDT) WBC Count 6.4 4.0 - 11.0 10e3/uL [...] LAB - BLOOD ORDERABL ES RH LABORATORY [facility] [address] [facility] ([facility], no room number) [place] [address], [facility] * (ABNORMAL) Basic metabolic panel (01/05/2024 1:38 AM CDT) Sodium 140 135 - 145 mmol/L 01/05/2024 2:10 AM CDT RH LABORATORY Potassium 3.9 3.4 - 5.3 mmol/L [...] 01/05/2024 2:10 AM CDT LABORATORY Comment:eGFR calculated usin 2020 CKD-EPI equation. Calcium 9.6 8.8 - 10.4 [...] MD LAB - BLOOD ORDERABL ES LABORATORY [facility] Acute Care Lab [address] [facility] Lab (1st floor, no room number) [place] [address], [facility] * Urine Culture (01/05/2024 1:28 AM CDT) Culture >100,000 CFU/mL Mixture of Urogenital Amanda [...] - MICRO GENERAL ORDERABLES UU IDD LABORATORY [facility] Inf. Diseases Diag. Lab [address] [facility], [address] [place] [address] * (ABNORMAL) UA with Microscopic reflex to Culture (01/05/2024 1:28 AM CDT) Color Urine Light Yellow Colorless, Straw, Light Yellow, Yellow 01/05/2024 2:04 AM CDT LABORATORY Appearance Urine Slightly Cloudy(A) Clear 01/05/2024 2:04 AM CDT LABORATORY Glucose Urine Negative Negative mg/dL 01/05/2024 2:04 AM CDT LABORATORY Bilirubin Urine Negative Negative 2:04 AM CDT LABORATORY Ketones Urine Negative Negative mg/dL 01/05/2024 2:04 AM CDT LABORATORY Specific [place] Urine 1.011 1.003 - 1.035 01/05/2024 2:04 [...] None Seen /LPF 01/05/2024 2:04 AM CDT RH LABORATORY RBC Urine 5(H) <=2 /HPF 01/05/2024 2:04 AM CDT RH LABORATORY WBC Urine 44(H) <=5 /HPF 01/05/2024 [...] MD LAB - URINE ORDERABL ES LABORATORY [facility] Acute Care Lab [address] Lab (1st floor, no room number) [place] [address] * EKG 12-lead, tracing only (01/05/2024 1:13 AM CDT) Systolic Blood Pressure mmHg RADIOLOGY RESULTS Diastolic Blood Pressure mmHg RADIOLOGY RESULTS Ventricular Rate 52 BPM RAD IOLOGY RESULTS Atrial Rate 52 BPM RADIOLOG Y RESULTS CO Interval 160 ms RADIOLOG Y RESULTS QRS Duration 86 ms RADIOLO GY RESULTS QT 446 ms RADIOLOGY RESULTS QTc 414 ms RADIOLOGY RESULTS P [place] 37 degrees RADIOLOGY RESULTS R AXIS 21 degrees RADIOLOGY RESULTS T [place] 13 degrees RADIOLOGY RESULTS Interpretation ECG Sinus bradycardia with sinus arrhythmia Cannot rule out Anterior infarct , age undetermined Abnormal ECG When compared with ECG of 03-Jan-2024 02:23, Vent. rate has decreased by ??41 bpm Confirmed by - EMERGENCY ROOM, PHYSICIAN ([id number]), market editor CROW MOTTA ([id number]) on 01/05/2024 6:42:05 AM RADIOLOGY RESULTS 01/05/2024 1:13 AM CDT 01/05/2024 6:42 AM CDT Yassine Cramer MD ECG ORDERABLES RADIOLOGY RESULTS documented in this encounter Visit Diagnoses Diagnosis Alcohol withdrawal, uncomplicated documented in this encounter Administered Medications Inactive Administered Medications - up to 3 most recent administrations Medication Order MAR Action Action Date Dose Rate Site diazepam (VALIUM) tablet 5 mg 5 mg, Oral, ONCE, On Mon01/05/24 at 0240, For 1 dose $Given 01/05/2024 2:43 AM CDT 5 mg diphenhydrAMINE (BENADRYL) injection 25 mg 25 mg, Intravenous, ONCE, On Mon01/05/24 at 0200, For 1 dose $Given 01/05/2024 2:00 AM CDT 25 mg metoclopramide (REGLAN) injection 10 mg 10 mg, Intravenous, Administer over 2 Minutes, ONCE, On Mon01/05/24 at 0200, For 1 dose, Avoid use if patient has full bowel obstruction or perforation. $Given 01/05/2024 2:01 AM CDT 10 mg documented in this encounter Active and Recently Administered Medications Times are shown in CDT. Scheduled Medication Order 01/03/2024 01/04/2024 01/05/2024 diazepam (VALIUM) tablet 5 mg (COMPLETED) 5 mg, Oral, ONCE, On Mon01/05/24 at 0240, For 1 dose 0243 ($Given - Provi vidhi: Ghazala Grigsby RN) diphenhydrAMINE (BENADRYL) injection 25 mg (COMPLETED) 25 mg, Intravenous, ONCE, On Mon01/05/24 at 0200, For 1 dose 0200 ($Given - Provi vidhi: Shantal Petersen, CASTRO) metoclopramide (REGLAN) injection 10 mg (COMPLETED) 10 mg, Intravenous, Administer over 2 Minutes, ONCE, On Mon01/05/24 at 0200, For 1 dose, Avoid use if patient has full bowel obstruction or perforation. 0201 ($Given - Provi vidhi: Shantal Petersen, CASTRO) documented in this encounter Additional Health Concerns Assessment Noted Time PHQ-9 Depression Total Score: 21 023 10:16 AM CDT documented as of this encounter Care Teams Caul Puller Relationship Specialty Start Date End Date [facility], [address] [address] PCP - General 11/28/23 Madelaine Mitchell DO helper marble finisher 07/26/16 Francesco Merritt MD [id number] [place] [address] Family Medicine - Sports Medicine 12/14/18 Gabe Carl MD [address] [facility] [place] [place] [address] Assigned PCP 05/09/21 documented as of this encounter
--- OUTSIDE RECORDS SUMMARY | 2024-01-07 07:36 | XMS_ITS | Encounter Summary ---
Author Organization [facility] Address [address] [place] [address] Care Team Providers Care Weaver Wire Loom Name Role Phone Madelaine Mitchell DO Unavailable [phone] Francesco Merritt MD Unavailable [phone] Gabe Carl MD Unavailable [phone] [facility] Primary Care Provider Encounter Details Date Type Department Care Team (Latest Contact Info) Description 01/03/2024 Travel Social History Tobacco Use Types Packs/Day [...] documented as of this encounter Care Teams Weaver Wire Loom Relationship Specialty Start Date End Date [address] [address] PCP - General 11/28/23 Madelaine Mitchell DO director product development 07/26/16 Francesco Merritt MD [address] [facility] [address] [place] [address] Family Medicine - Sports Medicine 12/14/18 Gabe Carl MD [address] [facility] [place] [address] Assigned PCP 05/09/21 documented as of this encounter
--- OUTSIDE RECORDS SUMMARY | 2024-01-07 07:36 | XMS_ITS | Encounter Summary ---
Author Organization [facility] Address [address] [place] [address] Care Team Providers Care Installation Specialist Name Role Phone Madelaine Mitchell DO Unavailable [phone] Rosamaria Jones MD Primary Care Provider [phone] Francesco Merritt MD Unavailable Gabe Carl MD Unavailable [phone] Danielle Alcantar MD Unavailable [facility] Primary Care Provider Encounter Details Date Type Department Care Team (Late st Contact Info) Description 07/11/2021 MyC Medical Advice [facility] [address] [place] [address] Madelaine Mitchell DO [address] [place] [address] Social History Tobacco Use Types Packs/Day Years [...] Depression Total Score: 10 022 9:03 AM HUMAN RESOURCES OFFICER documented as of this encounter Care Teams Installation Specialist Relationship Specialty Start Date End Date Rosamaria Jones MD [address] [facility] [address] [place] [address] PCP - General Internal Medicine 10/06/18 11/27/[address] [address] PCP - General 11/28/23 Madelaine Mitchell DO white sourer 07/26/16 Francesco Merritt MD [address] [place] [address] Family Medicine - Sports Medicine 12/14/18 Gabe Carl MD [address] [place] [address] [place] [address] Assigned PCP 05/09/21 Danielle Alcantar MD [address] [place] [address] Assigned Musculoskeletal Provider 07/18/21 02/03/23 documented as of this encounter
--- OUTSIDE RECORDS SUMMARY | 2024-01-07 07:36 | XMS_ITS | Encounter Summary ---
Author Organization [facility] Address [address] [place] [address] Care Team Providers Care Roller Mill Operator Name Role Phone Stephen Madelaine Garcia DO Unavailable Rosamaria Jones MD Primary Care Provider [phone] Francesco Merritt MD Unavailable [phone] SerumLoyda MD Unavailable CreElaina morales APRN [facility] Unavailable [phone] Rosamaria Jones MD Unavailable Gabe Calr MD Unavailable [phone] Danielle Alcantar MD Unavailable [facility] Primary Care Provider Encounter Details Date Type Department Care Team (Late st Contact Info) Description 10/22/2019 MyC Medical Advice [facility] [address] [facility] [address] [place] [address] Queta Lisa, RN Social History [...] Out COVID-19 03/31/2021 03/31/2021 03/31/2021 7:10 AM RECREATION THERAPIST Rule Out COVID-19 09/15/2022 09/15/2022 09/15/2022 9:15 AM CDT Assessment Noted Time PHQ-9 Depression Total Score: 10 019 7:03 AM CDT documented as of this encounter Care Teams Roller Mill Operator Relationship Specialty Start Date End Date Rosamaria Jones MD [address] [place], [place] [address] PCP - General Internal Medicine 10/06/18 11/27/[address] [address] PCP - General 11/28/23 Madelaine Mitchell DO gold marker 07/26/16 Francesco Merritt MD [id number] [place] [address] Family Medicine - Sports Medicine 12/14/18 Loyda Farmer MD [address] [place], [place] [id number] Assigned PCP 09/29/19 10/26/19 Elaina Jiang APRN CNP [address] [place] [address] Assigned PCP 10/27/19 04/03/21 Rosamaria Jones MD [address] [place] [address] Assigned PCP 04/04/21 05/08/21 Gabe Carl MD [address] [facility] [place] [address] Assigned PCP 05/09/21 Danielle Alcantar MD [address] [place] [address] Assigned Musculoskeletal Provider 07/18/21 02/03/23 documented as of this encounter
--- OUTSIDE RECORDS SUMMARY | 2024-01-07 07:36 | XMS_ITS | Encounter Summary ---
Author Organization [facility] Address [address] [place] [address] Care Team Providers Care Certified Medical Technician Assistant Name Role Phone Madelaine Mitchell DO Unavailable [phone] Francesco Merritt MD Unavailable [phone] Gabe Carl MD Unavailable [phone] [facility] Primary Care Provider Encounter Details Date Type Department Care Team (Latest Contact Info) Description 01/05/2024 Travel Social History Tobacco Use Types Packs/Day [...] documented as of this encounter Care Teams Certified Medical Technician Assistant Relationship Specialty Start Date End Date [address] [address] PCP - General 11/28/23 Madelaine Mitchell DO bi analyst 07/26/16 Francesco Merritt MD [address] [facility] [address] [place] [address] Family Medicine - Sports Medicine 12/14/18 Gabe Carl MD [address] [facility] [place] [address] Assigned PCP 05/09/21 documented as of this encounter
--- OUTSIDE RECORDS SUMMARY | 2024-01-07 07:36 | XMS_ITS | Encounter Summary ---
Author Organization [facility] Address [address] [place] [address] Care Team Providers Care High Density Talc Coater Operator Name Role Phone Madelaine Mitchell DO Unavailable [phone] Francesco Merritt MD Unavailable [phone] Gabe Carl MD Unavailable [phone] [facility] Primary Care Provider Encounter Details Date [...] documented as of this encounter Care Teams High Density Talc Coater Operator Relationship Specialty Start Date End Date [address] [address] PCP - General 11/28/23 Madelaine Mitchell DO electronics installer 07/26/16 Francesco Merritt MD [address] [facility] [address] [place] [address] Family Medicine - Sports Medicine 12/14/18 Gabe Carl MD [address] [facility] [place] [place] [address] Assigned PCP 05/09/21 documented as of this encounter
--- OUTSIDE RECORDS SUMMARY | 2024-01-07 07:36 | XMS_ITS | Encounter Summary ---
Author Organization [place] Address [address] [place] [address] Care Team Providers Care Convention Worker Name Role Phone DarwinMadelaine patel Unavailable [phone] Francesco Merritt MD Unavailable Gabe Carl MD Unavailable [phone] [place] [address] Primary Care Provider Reason for Visit * Reason Comments Withdrawal Encounter Details Date Type Department Care Team (Late st Contact Info) Description 01/03/2024 12:57 AM CDT - 01/03/2024 4:39 AM CDT Emergency [facility] Emergency Dept [address] [place] [address] [phone] Angie Levi DO [facility] [address] [place] [address] Alcohol dependence with uncomplicated withdrawal (H); Alcohol-induced acute pancreatitis without infection or necrosis; Nausea and vomiting, unspecified vomiting type; Benzodiazepine misuse Discharge Disposition: Home or Self Care Social [...] Sign Reading Time Taken Comments Blood Pressure 146/105 01/03/2024 3:36 AM CDT Pulse 85 01/03/2024 3:31 AM CDT Temperature 36 ??C (96.8 ??F) 01/03/2024 12: 55 AM CDT Respiratory Rate 15 01/03/2024 2:30 AM CDT Oxygen Saturation 99% 01/03/2024 3:36 AM CDT Inhaled Oxygen Concentration - - Weight 95.6 kg (210 lb 12.2 oz) 024 12:55 AM CDT Height 165.1 cm (5' 5) 01/03/2024 12:5 5 AM CDT Body Mass Index 35.07 01/03/2024 12:55 AM CDT documented in this encounter Discharge Instructions * Attachments The following attachments cannot be sent through Care Everywhere. * Alcohol Withdrawal: General Info (Tamazight) documented in this encounter Medications at Time of Discharge Medication Sig Dispensed Refills Start Date End Date chlordiazePOXIDE (LIBRIUM) 25 MG capsule Take 1 capsule (25 mg) by mouth 3 times daily as needed for anxiety. 15 capsule 01/03/2024 azelastine (ASTELIN) 0.1 % nasal sprayIndications:Post -nasal drip Switzer 1 spray into both nostrils 2 times [...] daily metFORMIN (GLUCOPHAGE-XR) 500 MG 24 hr tabletIndications:PCO S (polycystic ovarian syndrome) TAKE 4 TABLETS BY MOUTH DAILY 360 tablet 1 04/08/2019 methocarbamol (ROBAXIN) 500 MG tabletIndications:Tra pezius muscle spasm,Left arm numbness Take 1-2 tablets (500-1,000 mg) by mouth 4 times daily as needed for muscle spasms 20 tablet 04/30/2021 nystatin (MYCOSTATIN) 658638 UNIT/ML suspension TAKE 6 ML BY MOUTH [...] as of this encounter ED Notes * Soco Pace RN - 01/03/2024 4:12 AM CDT Pt discharged. IV line removed. Discharged instructions and papers given. Verbalizes understanding.Discharged on stable condition. A&Ox4. Ambulatory. * Angie Levi DO - 01/03/2024 1:28 AM CDT Emergency Department Note History of Present Illness Chief Complaint Withdrawal HPI Neda Moss is a 33 year old female with a history of depression, gastritis and alcohol abuse presenting with concerns for alcohol withdrawal. Patient reports drinking roughly 8-12 alcoholic beverages daily. Her last drink was 2 hours ago. She also reports misusing Ativan taking roughly 2 to 7mg daily. Her last dose was early yesterday morning. Patient reports she was on her way to a medical detox program in [place] today though developed increasing nonbloody vomiting as well as tremors. She feels unwell at bedside and is quite anxious. She denies any chest pain, dyspnea, significant abdominal pain, diarrhea, black/bloody stool, dysuria or other symptoms. She denies any history of alcohol withdraw seizures. No other drug use reported. No suicidal ideations reported. Independent Historian None Review of External Notes ED visit yesterday for alcohol intoxication Past Medical History Medical History and Problem List Past Medical History: Diagnosis Date Abnormal Pap smear of cervix 03/28/2018 Cervical high risk HPV (human papillomavirus) test positive 03/28/2018 Frequent UTI Gastritis 2014 History of colposcopy 04/25/2018 Major depression 2013 PCOS (polycystic ovarian syndrome) Medications azelastine (ASTELIN) 0.1 % nasal spray BIOTIN PO busPIRone (BUSPAR) 5 MG tablet diazepam (VALIUM) 2 MG tablet hydrOXYzine (ATARAX) 25 MG tablet ibuprofen (ADVIL/MOTRIN) 200 MG tablet letrozole (FEMARA) 2.5 MG tablet loratadine (CLARITIN) 10 MG tablet metFORMIN (GLUCOPHAGE-XR) 500 MG 24 hr tablet methocarbamol (ROBAXIN) 500 MG tablet nystatin (MYCOSTATIN) 693452 UNIT/ML suspension oxyCODONE (ROXICODONE) 5 MG tablet PARoxetine (PAXIL) 20 MG tablet Vit-Fe Fumarate-FA ( MULTIVITAMIN PLUS IRON) 27-0.8 MG TABS Probiotic Product (ACIDOPHILUS PROBIOTIC BLEND PO) prochlorperazine (COMPAZINE) 10 MG tablet Surgical History Past Surgical History: Procedure Laterality Date COLONOSCOPY 2014 HC TOOTH EXTRACTION W/FORCEP KNEE SURGERY LASIK BILATERAL 2009 OPEN REDUCTION INTERNAL FIXATION PATELLA Left 06/28/2015 Procedure: OPEN REDUCTION INTERNAL FIXATION PATELLA; Surgeon: Mina Romero MD; Location: [facility] OR UPPER GI ENDOSCOPY 2014 erosive gastritis Physical Exam Patient Vitals for the past 24 hrs: BP Temp Temp src Pulse Resp SpO2 Height Weight 01/03/24 0215 (!) 135/90 -- -- 72 18 93 % -- -- 01/03/24 0200 128/87 -- -- 72 18 92 % -- -- 01/03/24 0139 124/87 -- -- 87 16 98 % -- -- 01/03/24 0110 (!) 125/115 -- -- (!) 140 -- 98 % -- -- 01/03/24 0057 (!) 130/104 -- -- -- -- -- -- -- 01/03/24 0055 -- 96.8 ??F (36 ??C) Temporal 113 30 97 % 1.651 m (5' 5) 95.6 kg (210 lb 12.2 oz) Physical Exam Nursing note and vitals reviewed. Constitutional: Well nourished. Eyes: Conjunctiva normal. Pupils are equal, round, and reactive to light. ENT: Nose normal. Mucous membranes pink and moist. Neck: Normal range of motion. CVS: Sinus tachycardia. Normal heart sounds. Pulmonary: Lungs clear to auscultation bilaterally. Hyperventilating GI: Abdomen soft. Mild upper abdominal tenderness. No rigidity or guarding. MSK: No calf tenderness or swelling. Neuro: Alert. Follows simple commands. Tremulous on arrival Skin: Skin is warm and dry. No rash noted. Psychiatric: Anxious appearing, pacing around the room. Denies suicidal ideations Diagnostics Lab Results Labs Ordered and Resulted from Time of ED Arrival to Time of ED Departure COMPREHENSIVE METABOLIC PANEL - Abnormal Result Value Sodium 142 Potassium 3.5 Carbon Dioxide (CO2) 21 (*) Anion Gap 21 (*) Urea Nitrogen 9.2 Creatinine 0.71 GFR Estimate >90 Calcium 9.8 Chloride 100 Glucose 119 (*) Alkaline Phosphatase 90 AST 25 ALT 28 Protein Total 8.2 Albumin 5.3 (*) Bilirubin Total 0.2 LIPASE - Abnormal Lipase 85 (*) ETHYL ALCOHOL LEVEL - Abnormal Alcohol ethyl 0.08 (*) CBC WITH PLATELETS AND DIFFERENTIAL - Abnormal WBC Count 11.8 (*) RBC Count 4.66 Hemoglobin 14.4 Hematocrit 43.7 MCV 94 MCH 30.9 MCHC 33.0 RDW 13.3 Platelet Count 296 % Neutrophils 49 % Lymphocytes 41 % Monocytes 8 % Eosinophils 1 % Basophils 1 % Immature Granulocytes 0 NRBCs per 100 WBC 0 Absolute Neutrophils 5.7 Absolute Lymphocytes 4.9 Absolute Monocytes 1.0 Absolute Eosinophils 0.1 Absolute Basophils 0.1 Absolute Immature Granulocytes 0.1 Absolute NRBCs 0.0 GLUCOSE BY METER - Abnormal GLUCOSE BY METER POCT 123 (*) HCG QUALITATIVE - Normal hCG Serum Qualitative Negative GLUCOSE MONITOR NURSING POCT Imaging No orders to display EKG ECG results from 01/03/24 EKG 12-lead, tracing only Value Systolic Blood Pressure Diastolic Blood Pressure Ventricular Rate 93 Atrial Rate 93 UT Interval 152 QRS Duration 78 QT 372 QTc 462 P [place] 62 R AXIS 44 T [place] 30 Interpretation ECG Sinus rhythm Normal ECG When compared with ECG of 28-Nov-2023 12:43, No significant change was found Independent Interpretation None ED Course Medications Administered Medications sodium chloride 0.9% BOLUS 1,000 mL (1,000 mLs Intravenous $New Bag 01/03/24131) ondansetron (ZOFRAN) injection 4 mg (4 mg Intravenous $Given 01/03/24131) LORazepam (ATIVAN) injection 2 mg (2 mg Intravenous $Given 01/03/24131) Procedures Procedures Discussion of Management None ED Course Additional Documentation None Medical Decision Making / Diagnosis [facility] Diagnoses: None MIPS None MDM Neda Moss is a 33 year old female presenting with predominantly with known history of alcohol abuse and benzodiazepine misuse presenting with increasing anxiety, vomiting, tremors. She is quite anxious appearing on arrival, pacing around the room. Labs without profound anemia or significant e lectrolyte derangements. She has mild elevated lipase though no evidence to suggest gallbladder/biliary etiology. Stronger suspicion presentation is more secondary to alcohol pancreatitis. Clinical concern for alcohol/benzodiazepine withdrawal based on exam. She received IV as well as p.o. benzodiazepines and was much calmer and felt much improved on reevaluation. Repeat abdominal exam benign Damaso do not feel further emergent imaging is needed at this time. I did discuss with patient presentation certainly could be secondary to alcohol/benzo withdrawal with mild alcohol induced pancreatitis/gastritis as well. I offered formal detox today though patient is declining stating that she plans to go to [place] for her formal detox program. In the interim I will provide antiemetics, Pepcid as well as Librium for breakthrough symptoms. Return precautions given. Disposition The patient was discharged. Diagnosis ICD-10-CM 1. Alcohol dependence with uncomplicated withdrawal (H) F10.230 2. Alcohol-induced acute pancreatitis without infection or necrosis K85.20 3. Nausea and vomiting, unspecified vomiting type R11.2 4. Benzodiazepine misuse F13.90 Discharge Medications Discharge Medication List as of 01/03/2024 4:04 AM START taking these medications Details chlordiazePOXIDE (LIBRIUM) 25 MG capsule Take 1 capsule (25 mg) by mouth 3 times daily as needed for anxiety., Disp-15 capsule, R-0, E-Prescribe famotidine (PEPCID) 20 MG tablet Take 1 tablet (20 mg) by mouth 2 times daily for 10 days., Disp-20tablet, R-0, E-Prescribe ondansetron (ZOFRAN ODT) 4 MG ODT tab Take 1 tablet (4 mg) by mouth every 8 hours as needed for nausea., Disp-10 tablet, R-0, E-Prescribe Angie Pratt. DO Amita Levi Lindsey E, DO 01/03/24 0459 * Yesika Mckeon RN - 01/03/2024 12:58 AM CDT Presents to triage with c/o alcohol withdrawal. Patient states she normally drinks a lot every day. Last drink was 2 hours ago. Patient agitated and hyper active in triage. Denies seizure history. * Yesika Mckeon RN - 01/03/2024 12:57 AM CDT Bed: ED16 Expected date: Expected time: Means of arrival: Comments: triage documented in this encounter Plan of Treatment Not on file documented as of this encounter Procedures Procedure Name Priority Date/Time Associated Diagnosis Comments US ABDOMEN LIMITED STAT 01/03/2024 3: 23 AM CDT EKG 12-LEAD, TRACING ONLY STAT 01/03/2024 2:23 AM CDT CBC WITH PLATELETS AND DIFFERENTIAL STAT 01/03/2024 1:34 AM CDT CBC WITH PLATELETS & DIFFERENTIAL STAT 01/03/2024 1:34 AM CDT LIPASE STAT 01/03/2024 1:34 AM CDT HCG QUALITATIVE STAT 01/03/2024 1:34 AM CDT COMPREHENSIVE METABOLIC PANEL STAT 01/03/2024 1:34 AM CDT ETHYL ALCOHOL LEVEL STAT 01/03/2024 1 :34 AM CDT GLUCOSE BY METER STAT 01/03/2024 1:30 AM CDT documented in this encounter Results * US Abdomen Limited (01/03/2024 3:23 AM CDT) Anatomical Region Laterality Modality Abdomen/Pelvis Ultrasound 01/03/2024 3:23 AM CDT Impressions 01/03/2024 3:30 AM CDT IMPRESSION: 1. ??Hepatomegaly and hepatic steatosis. 2. ??Normal gallbladder. Narrative 01/03/2024 3:30 AM CDT EXAM: US ABDOMEN LIMITED LOCATION: DATE: 01/03/2024 INDICATION: upper abdominal pain COMPARISON: [...] - 01/03/2024 EXAM: US ABDOMEN LIMITED LOCATION: DATE: 01/03/2024 INDICATION: upper abdominal pain COMPARISON: [...] steatosis. 2. Normal gallbladder. Angie Levi DO IMG US ORDERABLES * EKG 12-lead, tracing only (01/03/2024 2:23 AM CDT) Systolic Blood Pressure mmHg RADIOLOGY RESULTS Diastolic Blood Pressure mmHg RADIOLOGY RESULTS Ventricular Rate 93 BPM RAD IOLOGY RESULTS Atrial Rate 93 BPM RADIOLOG Y RESULTS UT Interval 152 ms RADIOLOG Y RESULTS QRS Duration 78 ms RADIOLO GY RESULTS QT 372 ms RADIOLOGY RESULTS QTc 462 ms RADIOLOGY RESULTS P [place] 62 degrees RADIOLOGY RESULTS R AXIS 44 degrees RADIOLOGY RESULTS T [place] 30 degrees RADIOLOGY RESULTS Interpretation ECG Sinus rhythm Normal ECG When compared with ECG of 28-Nov-2023 12:43, No significant change was found Unconfirmed report - interpretation of this ECG is computer generated - see medical record for final interpretation Confirmed by - EMERGENCY ROOM, PHYSICIAN ([id number]), editor publications YEISON LAU ([id number]) on 01/03/2024 6:46:06 AM RADIOLOGY RESULTS 01/03/2024 2:23 AM CDT 01/03/2024 6:46 AM CDT Angie Levi DO ECG ORDERABLES RADIOLOGY RESULTS * (ABNORMAL) CBC with platelets and differential (01/03/2024 1:34 AM CDT) WBC Count 11.8(H) 4.0 - 11.0 10e3/uL 01/03/2024 1:44 AM CDT [facility] RBC Count 4.66 3.80 - 5.20 10e6/uL 01/03/2024 1:44 AM CDT [facility] Hemoglobin 14.4 11.7 - 15.7 g/dL 01/03/2024 1:44 AM CDT [facility] Hematocrit 43.7 35.0 - 47.0 % 01/03/2024 1:44 AM CDT [facility] MCV 94 78 - 100 fL 01/03/2024 1:44 AM CDT [facility] MCH 30.9 26.5 - 33.0 pg 01/03/2024 1:44 AM CDT [facility] MCHC 33.0 31.5 - 36.5 g/dL 01/03/2024 1:44 AM CDT [facility] RDW 13.3 10.0 - 15.0 % 01/03/2024 1:44 AM CDT [facility] Platelet Count 296 150 - 450 10e3/uL 01/03/2024 1:44 AM CDT [facility] % Neutrophils 49 % 01/03/2024 1:44 AM CDT [facility] % Lymphocytes 41 % 01/03/2024 1:44 AM CDT [facility] % Monocytes 8 % 01/03/2024 1:44 AM CDT [facility] % Eosinophils 1 % 01/03/2024 1:44 AM CDT [facility] % Basophils 1 % 01/03/2024 1:44 AM CDT [facility] % Immature Granulocytes 0 % 01/03/2024 1:44 AM CDT [facility] NRBCs per 100 WBC 0 <1 /100 024 1:44 AM CDT [facility] Absolute Neutrophils 5.7 1.6 - 8.3 10e3/uL 01/03/2024 1:44 AM CDT [facility] Absolute Lymphocytes 4.9 0.8 - 5.3 10e3/uL 01/03/2024 1:44 AM CDT [facility] Absolute Monocytes 1.0 0.0 - 1.3 10e3/uL 01/03/2024 1:44 AM CDT [facility] Absolute Eosinophils 0.1 0.0 - 0.7 10e3/uL 01/03/2024 1:44 AM CDT [facility] Absolute Basophils 0.1 0.0 - 0.2 10e3/uL 01/03/2024 1:44 AM CDT [facility] Absolute Immature Granulocytes 0.1 <=0.4 10e3/uL 01/03/2024 1:44 AM CDT [facility] Absolute NRBCs 0.0 10e3/uL 01/03/2024 1:44 AM CDT [facility] Blood BLOOD SPECIMEN / Unknown Venipuncture / Unknown 01/03/2024 1:34 AM CDT 01/03/2024 1:42 AM CDT Angie Levi DO LAB - BLOOD ORDERA BLES Performing Organization Address City/[facility]/ZIP Co de Phone Number [facility] [address] Lab (1st floor, no room number) [place] [phone] * HCG QUALitative (blood) (01/03/2024 1:34 AM CDT) hCG Serum Qualitative Negative Negative HERMILO 01/03/2024 2:09 AM CDT [facility] Comment:This test is for scr eening purposes. Results should be interpreted along with the clinical picture. Confirmation testing is available if warranted by ordering [id number], HCG Quantitative . Blood BLOOD SPECIMEN / Unknown Venipuncture / Unknown 01/03/2024 1:34 AM CDT 01/03/2024 1:42 AM CDT Angie Levi DO LAB - BLOOD ORDERA BLES Performing Organization Address [facility] Co de Phone Number [facility] [address] Lab (1st floor, no room number) [place] [phone] * (ABNORMAL) Alcohol level blood (01/03/2024 1:34 AM CDT) Alcohol ethyl 0.08(H) <=0.01 g/dL 01/03/2024 2:01 AM CDT [facility] Blood BLOOD SPECIMEN / Unknown Venipuncture / Unknown 01/03/2024 1:34 AM CDT 01/03/2024 1:42 AM CDT Angie Levi DO LAB - BLOOD ORDERA BLES Performing Organization Address City/[facility]/ZIP Co de Phone Number LABORATORY [facility] [address] Lab (1st floor, no room number) [place] [address] * (ABNORMAL) Lipase (01/03/2024 1:34 AM CDT) Lipase 85(H) 13 - 60 U/L 01/03/2024 2:01 AM CDT LABORATORY Blood BLOOD SPECIMEN / Unknown Venipuncture / Unknown 01/03/2024 1:34 AM CDT 01/03/2024 1:42 AM CDT Angie Levi DO LAB - BLOOD ORDERA BLES LABORATORY [facility] [address] Lab (1st floor, no room number) [place] [address] * (ABNORMAL) Comprehensive metabolic panel (01/03/2024 1:34 [...] 2:01 AM CDT LABORATORY Comment:eGFR calculated usin g 2020 CKD-EPI [...] DO LAB - BLOOD ORDERA BLES LABORATORY [facility] [address] [facility] Lab (1st floor, no room number) [place] [address] * (ABNORMAL) Glucose by meter (01/03/2024 1:30 AM CDT) [facility] GLUCOSE BY METER POCT 123(H) 70 - 99 mg/dL 01/03/2024 1:38 AM CDT LABORATORY POC Blood, Capillary BLOOD SPECIMEN / Unknown 01/03/2024 1:30 AM CDT 01/03/2024 1:38 AM CDT Angie Levi DO LAB - BEAKER POCT LABORATORY [facility] [address] [facility] Lab (1st floor, no room number) [place] [address], [facility] documented in this encounter Visit Diagnoses Diagnosis Alcohol dependence with uncomplicated withdrawal Other and unspecified alcohol dependence, unspecified drinking behavior Alcohol-induced acute pancreatitis without infection or necrosis Nausea and vomiting, unspecified vomiting type Benzodiazepine misuse documented in this encounter Administered Medications Inactive Administered Medications - up to 3 most recent administrations Medication Order MAR Action Action Date Dose Rate Site diazepam (VALIUM) tablet 5 mg 5 mg, Oral, ONCE, On Mon01/03/24 at 0325, For 1 dose $Given 01/03/2024 3:27 AM CDT 5 mg folic acid (FOLVITE) tablet 1 mg 1 mg, Oral, ONCE, On Mon01/03/24 at 0245, For 1 dose $Given 01/03/2024 2:48 AM CDT 1 mg LORazepam (ATIVAN) injection 1 mg 1 mg, Intravenous, ONCE, On Mon01/03/24 at 0325, For 1 dose, IV Route: Dilute with equal volume NS prior to use. This drug may cause significant respiratory depression. Monitor respiratory status and vital signs carefully for 1 hour after each dose. $Given 01/03/2024 3:28 AM CDT 1 mg LORazepam (ATIVAN) injection 2 mg 2 mg, Intravenous, ONCE, On Mon01/03/24 at 0125, For 1 dose, IV Route: Dilute with equal volume NS prior to use. This drug may cause significant respiratory depression. Monitor respiratory status and vital signs carefully for 1 hour after each dose. $Given 01/03/2024 1:32 AM CDT 2 mg ondansetron (ZOFRAN) injection 4 mg 4 mg, Intravenous, ONCE, Administer over 2-5 Minutes, On Mon01/03/24 at 0125, For 1 dose $Given 01/03/2024 1:32 AM CDT 4 mg sodium chloride 0.9% BOLUS 1,000 mL Intravenous, 1,000 mL, ONCE, at 1,000 mL/hr, Administer over 1 Hours, On Mon01/03/24 at 0125, For 1 dose $New Bag 01/03/2024 1:32 AM CDT 1,000 mLs 1000 mL/hr thiamine (B-1) tablet 100 mg 100 mg, Oral, ONCE, On Mon01/03/24 at 0245, For 1 dose $Given 01/03/2024 2:48 AM CDT 100 mg documented in this encounter Active and Recently Administered Medications Times are shown in CDT. Scheduled Medication Order 01/01/2024 01/02/2024 01/03/2024 diazepam (VALIUM) tablet 5 mg (COMPLETED) 5 mg, Oral, ONCE, On Mon01/03/24 at 0325, For 1 dose 032 ($Given - Provi vidhi: Soco Pace RN) folic acid (FOLVITE) tablet 1 mg (COMPLETED) 1 mg, Oral, ONCE, On Mon01/03/24 at 0245, For 1 dose 024 ($Given - Provi vidhi: Soco Pace RN) LORazepam (ATIVAN) injection 1 mg (COMPLETED) 1 mg, Intravenous, ONCE, On Mon01/03/24 at 0325, For 1 dose, IV Route: Dilute with equal volume NS prior to use. This drug may cause significant respiratory depression. Monitor respiratory status and vital signs carefully for 1 hour after each dose. 032 ($Given - Provi vidhi: Soco Pace RN) LORazepam (ATIVAN) injection 2 mg (COMPLETED) 2 mg, Intravenous, ONCE, On Mon01/03/24 at 0125, For 1 dose, IV Route: Dilute with equal volume NS prior to use. This drug may cause significant respiratory depression. Monitor respiratory status and vital signs carefully for 1 hour after each dose. 013 ($Given - Provi vidhi: Jorge Woodson RN) ondansetron (ZOFRAN) injection 4 mg (COMPLETED) 4 mg, Intravenous, ONCE, Administer over 2-5 Minutes, On Mon01/03/24 at 0125, For 1 dose 013 ($Given - Provi vidhi: Jorge Woodson RN) sodium chloride 0.9% BOLUS 1,000 mL (COMPLETED) Intravenous, 1,000 mL, ONCE, at 1,000 mL/hr, Administer over 1 Hours, On Mon01/03/24 at 0125, For 1 dose 013 ($New Bag - Pro vider: Jorge Woodson RN)[id number] (Stopped - Provider: Soco Pace RN) thiamine (B-1) tablet 100 mg (COMPLETED) 100 mg, Oral, ONCE, On Mon01/03/24 at 0245, For 1 dose 0248 ($Given - Provi vidhi: Soco Pace RN) documented in this encounter Additional Health Concerns Assessment Noted Time PHQ-9 Depression Total Score: 21 023 10:16 AM CDT documented as of this encounter Care Teams Convention Worker Relationship Specialty Start Date End Date [facility], [address] [address] PCP - General 11/28/23 Madelaine Mitchell DO fuel testing technician 07/26/16 Francesco Merritt MD [facility] [place] [address] Family Medicine - Sports Medicine 12/14/18 Gabe Carl MD [address] [address] Assigned PCP 05/09/21 documented as of this encounter
--- OUTSIDE RECORDS SUMMARY | 2024-01-07 07:36 | XMS_ITS | Encounter Summary ---
Author Organization [place] Address [address] [place] [address] Care Team Providers Care Media Associate Name Role Phone Stephen Madleaine Garcia DO Unavailable [phone] Rosamaria Jones MD Primary Care Provider [facility] Unavailable [phone] Elaina Jiang APRN [facility] Unavailable [phone] Rosamaria Jones MD Unavailable Gabe Carl MD Unavailable [phone] Danielle Alcantar MD Unavailable [phone] [facility] Primary Care Provider Encounter Details Date [...] COVID-19? No / Unsure 03/31/2021 6:25 AM GREY STOCK RECORDER documented as of this encounter Plan of Treatment Not on file documented as of this encounter Visit Diagnoses Not on filedocumented in this encounter Additional Health Concerns Infection Onset Date Last Indicated Resolved Time Rule Out COVID-19 03/31/2021 03/31/2021 03/31/2021 7:10 AM GREY STOCK RECORDER Rule Out COVID-19 09/15/2022 09/15/2022 09/15/2022 9:15 AM CDT Assessment Noted Time PHQ-9 Depression Total Score: 10 019 7:03 AM CDT documented as of this encounter Care Teams Media Associate Relationship Specialty Start Date End Date Rosamaria Jones MD [address] [id number] PCP - General Internal Medicine 10/06/18 11/27/[address] [address] PCP - General 11/28/23 Madelaine Mitchell DO electrician telephone 07/26/16 Francesco Merritt MD [address] [place] [address] Family Medicine - Sports Medicine 12/14/18 Elaina Jiang APRN CNP [address] [place] [address] Assigned PCP 10/27/19 04/03/21 Rosamaria Jones MD [address] [address] Assigned PCP 04/04/21 05/08/21 Gabe Carl MD [address] [place] [address] VINICIUS MANNING [address] Assigned PCP 05/09/21 Danielle Alcantar MD [address] [place] [address] Assigned Musculoskeletal Provider 07/18/21 02/03/23 documented as of this encounter
--- OUTSIDE RECORDS SUMMARY | 2024-01-07 07:36 | XMS_ITS | Encounter Summary ---
Author Organization [facility] Address [address] [place] [address] Care Team Providers Care Art Consultant Name Role Phone Madelaine Mitchell DO Unavailable [phone] Rosamaria Jones MD Primary Care Provider [phone] Francesco Merritt MD Unavailable [phone] Gabe Carl MD Unavailable [phone] Encounter Details Date Type Department Care Team (Late st Contact Info) Description 08/17/2023 Medical Correspondence [facility] Info Mgmt Srvcs [address] [place] [address] Scan, Non-Provider Social History Tobacco [...] documented as of this encounter Care Teams Art Consultant Relationship Specialty Start Date End Date Rosamaria Jones MD [address] [facility] 200 [place] [address] PCP - General Internal Medicine 10/06/18 11/27/23 Madelaine Mitchell DO neurology teacher 07/26/16 Francesco Merritt MD [facility] [address] [place] [address] Family Medicine - Sports Medicine 12/14/18 Gabe Carl MD [address] [facility] [place] [address] Assigned PCP 05/09/21 documented as of this encounter
--- OUTSIDE RECORDS SUMMARY | 2024-01-07 07:37 | XMS_ITS | Continuity of Care Document ---
Author Organization [facility] Address [address] [address] [place] [address] Phone Care Team Providers Care Reproducer Name Role Phone No Information Unavailable Unavailable [...] Encounter [facility], [address] [address], [place], [id number], tel:[phone] No Information Nov-0 1-202 3 No Information [facility], [address] [address], [place], [id number], tel:[phone] [facility] Other fecal abnormalities 3 Ani Graff. [address] [place] [address], [id number], [place]. tel:[phone] Referring Provider: Referral Self, USE FOR SELF REFERRALS. [facility] Level 5 [facility], [address] [address], [place], [id number], tel:[phone] [facility] GI Symptoms or Concerns (chief complaint) Loose stoolsAbdominal pain, unspecified abdominal locationNausea and vomiting, unspecified vomiting type 3 Ani [address]ff[address] [place] [address], [id number], [place]. tel:[phone] Referring Provider: Referral Self, USE FOR SELF REFERRALS. [facility], [address] [address], [place], [id number], tel:[phone] [facility] GI Symptoms or Concerns (chief complaint) No Information 3 Ani [address]ff[address] [place] [address], [id number], [place]. tel:[phone] Family History Family Member Type Diagnosis Age At Onset Father Problem Hypertension Mother Problem Alive and well Father Problem Alcoholism Father Problem depression Father Problem Alive and well Mother Problem vertigo Payers Payer name Insurance type Covered republican ID Authoriza tion(s) No Information Social History [...] or illicit drugs. 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 She has 3 children. Her youngest is [...]
--- OUTSIDE RECORDS SUMMARY | 2024-01-07 07:37 | XMS_ITS | Encounter Summary ---
[facility] Organization [facility] Address [address], [place] [address] Care Team Providers Care Supplier Development Manager Name Role Phone Rosamaria Jones MD Primary Care Provider [phone] Encounter Details Date Type Department Care Team (Late st Contact Info) Description 10/24/2023 franko Tafoya [phone] Social History Tobacco Use Types Packs/Day Years [...] of : 88 Provider Kei Talley, Physician Manager Inventory Control Note From Provider Kendrick Red! I have now sent it to the correct pharmacy that you requested. My apologies! Take care!Kei Hanna PA-C Treatment Plan Let?? try a topical antibiotic for your bacterial vaginosis. I sent a prescription to [facility]. Make sure to take all of the [...] 5 days Note: Refills: None Sent To: [facility] [address] [place] [address] [address] [place] [id number] Treatment Plan Self Care Tip Topics Avoid [...] acid) metformin (metformin) Allergies Sulfa (Sulfonamide Antibiotics) [facility] We are an online clinic open 07/11. If you have any questions or comments about this visit, please call or email [email or web address]. * FAMILY MEDICINEFRANKO PROVIDER - 10/25/2023 9:36 AM CDT Franko Addendum Treatment Plan Diagnosis Bacterial Vaginosis (BV) Visit Date October 24, 2023 Addendum Date October 25, 2023 Neda Isa Date of : 88 Provider Kei Talley, Physician Manager Inventory Control Note From Provider Kendrick Red! I have sent the topical antibiotic to your pharmacy. Take care!Best, ARIANA Choudhury Treatment Plan Let?? try a topical antibiotic for your bacterial vaginosis. I sent a prescription to [facility]. Make sure to take all of the [...] 5 days Note: Refills: None Sent To: [facility] [address] [place] [address] [address] [place], [place] [phone] Treatment Plan Self Care Tip Topics Avoid [...] (metformin) Allergies Sulfa (Sulfonamide Antibiotics) [facility] Information [facility] We are an online clinic open 07/11. If you have any questions or comments about this visit, please call or email [email or web address]. * FAMILY MEDICINE, FRANKO PROVIDER - 10/24/2023 [...] bacterial vaginosis. I sent a prescription to [facility]. Make sure to take all of the [...] if symptoms persist Refills: None Sent To: [facility] [address] [facility] [address] [place], [place] [id number] Treatment Plan Self Care Tip Topics Avoid [...] acid) metformin (metformin) Allergies Sulfa (Sulfonamide Antibiotics) [facility] We are an online clinic open 07/11. If you have any questions or comments about this visit, please call or email [email or web address]. documented in this encounter Plan of Treatment Not on file documented as of this encounter Visit Diagnoses Diagnosis Acute vaginitis Vaginitis and vulvovaginitis, unspecified documented in this encounter Care Teams Supplier Development Manager Relationship Specialty Start Date End Date Rosamaria Jones MD [address] [facility] [address] [place] [address] PCP - General 11/10/15 documented as of this encounter
--- OUTSIDE RECORDS SUMMARY | 2024-01-07 07:37 | XMS_ITS | Clinical Summary ---
Author Organization [facility] Address [address] [place] [address] Care Team Providers Care Storeperson Name Role Phone Rosamaria Jones MD Primary Care Provider Source Comments You are receiving this document [...] for each transition of care or referral. [facility] Allergies Active Allergy Reactions Criticality Noted Date [...] Department Care Team Description 10/24/2023 monse Tafoya [phone] from Last 3 Months Social History Tobacco Use Types Packs/Day Years Used Date Smoking Tobacco: Never Estimated Date of Delivery Comme nts Yes 01/10/2017 Sex and Gender Information Value Date Recorded Sex Assigned at Not on file Gender Identity Not on file Sexual Orientation Not on file Last Filed Vital Signs Vital Sign Reading Time Taken Comments Blood Pressure 123/75 06/15/2016 11:56 AM BLOW PIT OPERATOR Pulse 104 06/15/2016 11:56 AM BLOW PIT OPERATOR Temperature 36.7 ??C (98.1 ??F) 06/15/2016 11:[address] Respiratory Rate 20 06/15/2016 11:56 AM BLOW PIT OPERATOR Oxygen Saturation 98% 06/15/2016 11:56 AM BLOW PIT OPERATOR Inhaled Oxygen Concentration - - Weight 86.2 [...] HepB (1) 2008 COVID-19 Vaccine ( - 2023-2 5 season) 2023 Influenza (#1) 2023 Zoster/Shingles (1 of 2) 07/28/2039 HPV Vaccine [...] age to complete this topic Care Teams Storeperson Relationship Specialty Start Date End Date Rosamaria Jones MD [address] [facility] [address] [place], [place] [address] PCP - General 11/10/15
--- OUTSIDE RECORDS SUMMARY | 2024-01-07 07:37 | XMS_ITS | Encounter Summary ---
Author Organization [facility] Address [address] [place] [address] Care Team Providers Care Decision Science Analyst Name Role Phone Rosamaria Jones MD Primary Care Provider Madelaine Mitchell DO Unavailable [phone] Jonas Cullen MD Unavailable Elaina Jiang APRN TORCH STRAIGHTENER AND HEATER Unavailable [phone] Elaina Jiang APRN TORCH STRAIGHTENER AND HEATER Unavailable [phone] No Ref-Primary, Physician Primary Care Provider Rosamaria Jones MD Primary Care Provider Francesco Merritt MD Unavailable [phone] Rosamaria Jones MD Unavailable Loyda Farmer MD Unavailable [phone] Elaina Jiang APRN TORCH STRAIGHTENER AND HEATER Unavailable [phone] Rosamaria Jones MD Unavailable Gabe Carl MD Unavailable [phone] Danielle Alcantar MD Unavailable [facility] Primary Care Provider Reason for Visit * Reason Onset Date Comments Results 10/07/2016 hgb Encounter Details Date Type Department Care Team (Late st Contact Info) Description 10/07/2016 MyC Medical Advice [facility] [address] [place] [id number] Madelaine Mitchell DO [address] [place] [address] Results (hgb) Social History Tobacco Use Types [...] Out COVID-19 03/31/2021 03/31/2021 03/31/2021 7:10 AM FOAM MACHINE OPERATOR Rule Out COVID-19 09/15/2022 09/15/2022 09/15/2022 9:15 AM CDT documented as of this encounter Care Teams Decision Science Analyst Relationship Specialty Start Date End Date Rosamaria Jones MD [address] [place] [address] PCP - General Internal Medicine 09/12/14 07/24/18 [place] [address] [place] [address] PCP - Assigned PCP 02/04/18 04/07/18 Elaina Jiang APRN CNP [address] [place] [address] PCP - Assigned PCP 04/08/18 06/19/18 No Ref-Primary, Physician PCP - General 07/25/18 10/05/18 Rosamaria Jones MD [address] [address] PCP - General Internal Medicine 10/06/18 11/27/[address] [address] PCP - General 11/28/23 Madelaine Mitchell DO [address] [place] [address]897 glass fitter 07/26/16 Elaina Jiang APRN TORCH STRAIGHTENER AND HEATER [address] [place] [place] [address] Assigned PCP 04/08/18 03/30/19 Francesco Merritt MD [address] [place] [address]67[address] Family Medicine - Sports Medicine 12/14/18 Rosamaria Jones MD [address] [address] Assigned PCP 03/31/19 09/28/19 Loyda Farmer MD [address] [place], [place] [address] Assigned PCP 09/29/19 10/26/19 Elaina Jiang APRN TORCH STRAIGHTENER AND HEATER [address] [place] [address] Assigned PCP 10/27/19 04/03/21 Rosamaria Jones MD [address] [facility] 200 [place] [address] Assigned PCP 04/04/21 05/08/21 Gabe Carl MD [address] [facility] [place] [address] Assigned PCP 05/09/21 Danielle Alcantar MD [address] [place] [address] Assigned Musculoskeletal Provider 07/18/21 02/03/23 documented as of this encounter
--- OUTSIDE RECORDS SUMMARY | 2024-01-07 07:37 | XMS_ITS | Encounter Summary ---
Author Organization [facility] Address [address] [place] [address] Care Team Providers Care Communications Strategist Name Role Phone Stephen Madelaine Garcia DO Unavailable Rosamaria Jones MD Primary Care Provider [facility] hospital[facility] MD Unavailable [phone] Rosamaria Jones MD Unavailable SerumLoyda MD Unavailable CrekristanElaina APRN ASSOCIATE ENGINEER Unavailable [phone] Rosamaria Jones MD Unavailable MeseretGabe jordan MD Unavailable [phone] Danielle Alcantar MD Unavailable [phone] [facility] Primary Care Provider Encounter Details Date Type Department Care Team (Late st Contact Info) Description 06/28/2019 [facility] Only [facility] [place] [address] [facility], [address] [place] [address] Porsha [...] COLP CERVIX/UPPER VAGINA Routine 04/25/2019 12:00 AM HEALTH PROMOTION SPECIALIST documented in this encounter Results * COLP CERVIX/UPPER VAGINA (04/25/2019 12:00 AM HEALTH PROMOTION SPECIALIST) Patient Reported PROCEDURES documented in this encounter Visit Diagnoses Not on filedocumented in this encounter Additional Health Concerns Infection Onset Date Last Indicated Resolved Time Rule Out COVID-19 03/31/2021 03/31/2021 03/31/2021 7:10 AM HEALTH PROMOTION SPECIALIST Rule Out COVID-19 09/15/2022 09/15/2022 09/15/2022 9:15 AM CDT Assessment Noted Time PHQ-9 Depression Total Score: 10 019 7:03 AM CDT documented as of this encounter Care Teams Communications Strategist Relationship Specialty Start Date End Date Rosamaria Jones MD [address] [employer] [employer] [address] [place] [address] PCP - General Internal Medicine 10/06/18 11/27/[address] [address] PCP - General 11/28/23 Madelaine Mitchell DO data analyst etl developer 07/26/16 Francesco Merritt MD [facility] [address] [address] Family Medicine - Sports Medicine 12/14/18 Rosamaria Jones MD [address] [place] [address] Assigned PCP 03/31/19 09/28/19 Loyda Farmer MD [address] [place] [address] Assigned PCP 09/29/19 10/26/19 Elaina Jiang APRN ASSOCIATE ENGINEER [address] [place], [place] [address] Assigned PCP 10/27/19 04/03/21 Rosamaria Jones MD [address] [facility] 200 [place], [place] [address] Assigned PCP 04/04/21 05/08/21 Gabe Carl MD [address] [facility] [place] [address] Assigned PCP 05/09/21 Danielle Alcantar MD [address] [place], [place] [address]35 Assigned Musculoskeletal Provider 07/18/21 02/03/23 documented as of this encounter
--- OUTSIDE RECORDS SUMMARY | 2024-01-07 07:37 | XMS_ITS | Encounter Summary ---
Author Organization [facility] Address [address] [place] [address] Care Team Providers Care Department Helper Name Role Phone Stephen Madelaine Garcia DO Unavailable Rosamaria Jones MD Primary Care Provider [facility] centerFr[facility] MD Unavailable [phone] Rosamaria Jones MD Unavailable SerumLoyda MD Unavailable CrekristanElaina APRN BUSINESS ANALYSIS ANALYST Unavailable [phone] Rosamaria Jones MD Unavailable MeseretGabe jordan MD Unavailable [phone] Danielle Alcantar MD Unavailable [phone] [facility] Primary Care Provider Encounter Details Date Type Department Care Team (Late st Contact Info) Description 06/28/2019 [facility] Only [facility] [place] [address] [facility], [address] [place] [address] Porsha Vargas [...] COLP CERVIX/UPPER VAGINA Routine 04/25/2018 12:00 AM LIFE INSURANCE AGENT documented in this encounter Results * COLP CERVIX/UPPER VAGINA (04/25/2018 12:00 AM LIFE INSURANCE AGENT) Patient Reported PROCEDURES documented in this encounter Visit Diagnoses Not on filedocumented in this encounter Additional Health Concerns Infection Onset Date Last Indicated Resolved Time Rule Out COVID-19 03/31/2021 03/31/2021 03/31/2021 7:10 AM LIFE INSURANCE AGENT Rule Out COVID-19 09/15/2022 09/15/2022 09/15/2022 9:15 AM CDT Assessment Noted Time PHQ-9 Depression Total Score: 10 019 7:03 AM CDT documented as of this encounter Care Teams Department Helper Relationship Specialty Start Date End Date Rosamaria Jones MD [address] [facility] [address] [place] [address] PCP - General Internal Medicine 10/06/18 11/27/[address] [address] PCP - General 11/28/23 Madelaine Mitchell DO manager digital ad operations 07/26/16 Francesco Merritt MD [facility] [address] [address] Family Medicine - Sports Medicine 12/14/18 Rosamaria Jones MD [address] [place] [address] Assigned PCP 03/31/19 09/28/19 Loyda Farmer MD [address] [place] [address] Assigned PCP 09/29/19 10/26/19 Elaina Jiang APRN BUSINESS ANALYSIS ANALYST [address] [place], [place] [address] Assigned PCP 10/27/19 04/03/21 Rosamaria Jones MD [address] [facility] 200 [place], [place] [address] Assigned PCP 04/04/21 05/08/21 Gabe Carl MD [address] [facility] [place] [address] Assigned PCP 05/09/21 Danielle Alcantar MD [address] [place], [place] [address] Assigned Musculoskeletal Provider 07/18/21 02/03/23 documented as of this encounter
--- OUTSIDE RECORDS SUMMARY | 2024-01-07 07:37 | XMS_ITS | Encounter Summary ---
Author Organization [facility] Address [address] [place] [address] Care Team Providers Care Supervisor Carpenters Name Role Phone Madelaine Mitchell DO Unavailable Rosamaria Jones MD Primary Care Provider Francesco Merritt MD Unavailable Loyda Farmer MD Unavailable CreElaina morales APRN [facility] Unavailable [phone] Rosamaria Jones MD Unavailable Gabe Carl MD Unavailable [phone] Danielle Alcantar MD Unavailable [facility] Primary Care Provider Reason for Visit * Reason Comments Medication Refill Encounter Details Date Type Department Care Team (Late st Contact Info) Description 10/05/2019 Refill [facility] [id number] [place] [address] Madelaine Mitchell DO [address] [facility] 100 [place] [address] Medication Refill Social History Tobacco Use Types [...] RN - 10/22/2019 10:31 AM CDT Sent Providajob message to schedule appt. Queta Morales R.N. [...] Out COVID-19 03/31/2021 03/31/2021 03/31/2021 7:10 AM OPTICAL DISPENSER Rule Out COVID-19 09/15/2022 09/15/2022 09/15/2022 9:15 AM CDT Assessment Noted Time PHQ-9 Depression Total Score: 10 019 7:03 AM CDT documented as of this encounter Care Teams Supervisor Carpenters Relationship Specialty Start Date End Date Rosamaria Jones MD [address] [facility] 200 [place] [address] PCP - General Internal Medicine 10/06/18 11/27/23 [facility], [address] [address] PCP - General 11/28/23 Madelaine Mitchell DO denture finisher 07/26/16 Francesco Merritt MD [address] [place] [address] Family Medicine - Sports Medicine 12/14/18 Loyda Farmer MD [address] [place], [place] [address] Assigned PCP 09/29/19 10/26/19 Elaina Jiang APRN [facility] [address] [place], [place] [address] Assigned PCP 10/27/19 04/03/21 Rosamaria Jones MD [address] [facility] 200 [place], [place] [address] Assigned PCP 04/04/21 05/08/21 Gabe Carl MD [address] [facility] [place] [address] Assigned PCP 05/09/21 Danielle Alcantar MD [address] [place], [place] 4365[address] Assigned Musculoskeletal Provider 07/18/21 02/03/23 documented as of this encounter
--- OUTSIDE RECORDS SUMMARY | 2024-01-07 07:37 | XMS_ITS | Encounter Summary ---
Author Organization [facility] Address [address] [place] [address] Care Team Providers Care Invisible Braces Orthodontist Name Role Phone Rosamaria Jones MD Primary Care Provider [phone] Madelaine Mitchell DO Unavailable [phone] Elaina Jiang APRN ASSOCIATE ARTISTIC DIRECTOR Unavailable [phone] No Ref-Primary, Physician Primary Care Provider Rosamaria Jones MD Primary Care Provider Francesco Merritt MD Unavailable Rosamaria Jones MD Unavailable Loyda Farmer MD Unavailable [phone] Elaina Jiang APRN ASSOCIATE ARTISTIC DIRECTOR Unavailable [phone] Rosamaria Jones MD Unavailable Gabe Carl MD Unavailable [phone] Danielle Alcantar MD Unavailable [phone] [facility] Primary Care Provider Encounter Details Date Type Department Care Team (Late st Contact Info) Description 07/15/2018 [facility] [address] [place] [address] Madelaine Mitchell DO [address] [facility] 100 [place] [address] PCOS (polycystic ovarian syndrome) (Primary Dx) Social [...] Out COVID-19 03/31/2021 03/31/2021 03/31/2021 7:10 AM MULTIMEDIA PROJECT MANAGER Rule Out COVID-19 09/15/2022 09/15/2022 09/15/2022 9:15 AM CDT Assessment Noted Time PHQ-9 Depression Total Score: 0 02/01/20 17 1:00 PM CDT documented as of this encounter Care Teams Invisible Braces Orthodontist Relationship Specialty Start Date End Date Rosamaria Jones MD [address] [place] [address] PCP - General Internal Medicine 09/12/14 07/24/18 No Ref-Primary, Physician PCP - General 07/25/18 10/05/18 Rosamaria Jones MD [address] [place] [place] [address] PCP - General Internal Medicine 10/06/18 11/27/[address] [address] PCP - General 11/28/23 Madelaine Mitchell DO [address] [place] [address] safety risk lead 07/26/16 Elaina Jiang APRN ASSOCIATE ARTISTIC DIRECTOR [address] [place], [place] [address] Assigned PCP 04/08/18 03/30/19 Francesco Merritt MD [address] [place] [address] 318584 Family Medicine - Sports Medicine 12/14/18 Rosamaria Jones MD [address] [address] Assigned PCP 03/31/19 09/28/19 Loyda Farmer MD [address] [place] [id number] Assigned PCP 09/29/19 10/26/19 Elaina Jiang APRN ASSOCIATE ARTISTIC DIRECTOR [address] [place] [address] Assigned PCP 10/27/19 04/03/21 Rosamaria Jones MD [address] [address] Assigned PCP 04/04/21 05/08/21 Gabe Carl MD [address] [facility] [place] [address] Assigned PCP 05/09/21 Danielle Alcantar MD [address] [place] [address] Assigned Musculoskeletal Provider 07/18/21 02/03/23 documented as of this encounter
== END 2024-01-04 23:33 | disposition home or self-care (01) ==
LOC: AMB 01-07 07:33
PROVIDERS: PCP Family Medicine; Visit Provider Family Medicine
DX: R51.9 Headache, unspecified (principal); R06.09 Other forms of dyspnea; R00.1 Bradycardia, unspecified
CPT/HCPCS: A0425; A0427

== ENCOUNTER 2024-01-23 08:19 | Outpatient (CLI) | payer BC, SELFPAY ==
--- OUTSIDE RECORDS SUMMARY | 2024-01-23 08:23 | XMS_ITS | Clinical Summary ---
Author Organization [facility] Address [place], [place] [address] Care Team Providers Care Devulcanizer Operator Name Role Phone Pedro Boudreaux MD Primary Care Provider Leana Syed RN, BSN Unavailable [phone] Ceferino Catalan MD Unavailable [phone] Allergies Active Allergy Reactions Criticality Noted Date [...] per actuation) nasal solution (FLONASE) Inhale 1 [place] to both nostrils once daily if needed for Rhinitis. 01/10/2023 Active vitamins-folic acid 1 mg ( RX) tablet Take 1 Tablet by mouth once daily. Active metFORMIN (GLUCOPHAGE) 500 mg tablet Take 1,000 mg by mouth two times daily with meals. Active zolpidem (AMBIEN) 5 mg tablet Take 5 mg by mouth at bedtime if needed for Sleep. Active methocarbamoL (ROBAXIN) 500 mg tabletIndications:Ca rcinoid tumor of right lung Take 1 Tablet (500 mg) by mouth four times daily. 28 Tablet 06/21/2023 Active hydrOXYzine pamoate (VISTARIL) 50 mg capsuleIndications:C arcinoid tumor of right lung Take 1 Capsule (50 mg) by mouth every 8 hours if needed for Itching or Anxiety. 21 Capsule 06/21/2023 Active oxyCODONE (ROXICODONE) 5 mg immediate release tabletIndications:Ca rcinoid tumor of right lung Take 1-2 Tablets (5-10 mg) by mouth every 4 hours if needed for Pain (moderate - severe). 20 Tablet 06/21/2023 Active sennosides-docusate (SENOKOT S) (8.6-50 mg) tabletIndications:Ca rcinoid tumor of right lung Take 1-4 Tablets by mouth two times daily. 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 Plan colp 04/25/18 [place] - no visible lesions, no bx. Plan pap due in 1 year pap from previous pap 03/13/19 Pap reminder letter sent. ([facility]) 03/14/19 TE states pt is 25 weeks (ASAD 06/27/19), no appts in chart. ([facility]) CCT tracking PCOS (polycystic ovarian syndrome) 04/26/2017 Pre-diabetes 04/07/2008 Irregular menses 03/21/2008 Exercise-induced asthma Resolved Problems Problem Noted Date Diagnosed Date Resolved Date Corneal ulcer, unspecified 08/25/2006 0 04/18/2008 FEVER 04/26/2017 Encounters Date Type Department Care Team Description 01/16/2024 4:00 PM CDT Telemedicine [facility] [address] [place] [address] Katherine Viveros, [facility] Mental Health Intake (No vitals taken) 01/16/2024 Travel 01/05/2024 Travel 12/27/2023 7:45 AM CDT - 12/27/2023 11:53 AM CDT Emergency [address] [address] Yo Alfredo MD Chest pain, unspecified type (Primary Dx); Shortness of breath; Cough, unspecified type; Nausea Discharge Disposition: Home Self Care 12/27/2023 Travel 12/10/2023 7:05 PM CDT - 12/10/2023 7:52 PM CDT Emergency [address] [address] Evi Novak PA Mastitis, right, acute (Primary [...] = 0.6 oz pur e alcohol) weekly PHQ-2 Answer Date Recorded PHQ-2 TOTAL SCORE 0 01/16/2024 Social Connections Answer Date Recorded Frequency of [...] 12/27/2023 7:42 AM CDT Plan of Treatment Upcoming Encounters Date Type Department Care Team (Late st Contact Info) Description 01/23/2024 4:00 PM CDT Telemedicine [facility] [address] [place] [address] Khloechaydottie, Katherine Beltran, [facility] [address] [place] [address] Health Maintenance Due Date Last Done Comments Tetanus booster 03/12/2018 03/12/2008, 07/10/2002 Pap test for age 21-65 08/21/2023 , 08/20/2020, 08/19/2019, Additional history exists COVID-19 vaccine series ( season) 2023 Influenza for age 9-49 12/17/2023 BMI (ht and wt on same day) for age 18+ 06/26/2024 06/27/2023, 06/01/2023, 06/03/2015 Depression screening for age 12+ 01/15/2025 01/16/2024 Tdap Completed 03/12/2008 HIV for age 15-65 [...] 12 LEAD STAT 12/27/2023 7:51 AM CDT FRAMING MACHINE TENDER THIN PREP PAP SCREEN IMAGED Routine 08/20/2020 [...] of2 resultswithin the time period is included. Interpretation Normal sinus rhythm Normal ECG BEYOND NOW Ventricular Rate 100 BPM BEYOND NOW Atrial Rate 100 BPM BEYOND NOW P-R Interval 124 ms BEYOND NOW QRS Duration 84 ms BEYOND NOW QT 320 ms BEYOND NOW QTc 412 ms BEYOND NOW P Maceo 56 degrees BEYOND NOW R Maceo 86 degrees BEYOND NOW T Maceo 71 degrees BEYOND NOW 12/27/2023 4:05 PM CDT 12/29/2023 8:11 AM CDT [place] ValdiviaBrigido Tanvi DO EKG ORD BEYOND NOW [place], [place] * TROPONIN T (HS) ONE TIME (12/27/2023 10:25 AM CDT) TROPONIN T HS <6 6-10 ng/L ng/L 12/27/2023 10:59 AM CDT [facility] Blood BLOOD SPECIMEN / Unknown Non-Lab Butterfly / Unknown 12/27/2023 10:25 AM CDT 12/27/2023 10:30 AM CDT Yo Alfredo MD CHEMISTRY Performing Organization Address City/[facility]/ZIP Co de Phone Number [address] [address] * XR CHEST 2 VIEWS PA AND [...] For Patients: ??As a result of the Century Cures Act, medical imaging exams and procedure [...] For Patients: As a result of the Century Cures Act, medical imagingexams and procedure reports [...] IMAGING * D-DIMER,QUANTITATIVE (12/27/2023 8:43 AM CDT) [facility] D-DIMER,QUANTIT ATIVE <0.22 <=0.49 FEU mcg/mL 12/27/2023 9:05 AM CDT [facility] Blood BLOOD SPECIMEN / Unknown IV Start / Unknown 12/27/2023 8:43 AM CDT 12/27/2023 8:55 AM CDT Narrative [facility] - 12/27/2023 9:05 AM CDT The cut off value for exclusion of Deep Vein Thrombosis and / or Pulmonary Embolism is 0.50 FEU mcg/mL For patients greater than 50 years of age the upper limit is age dependent and was calculated with the formula: ?? (PATIENT AGE x 0.01) FEU mcg/mL = Upper limit of normal range Yo Alfredo MD HEMATOLOGY [address] [address] * COVID-19 MOLECULAR (12/27/2023 8:19 AM CDT) COVID 19 [facility] MOLECULAR Negative Negative 12/27/2023 9:02 AM CDT [facility] Comment:All PCR tests are bauman bject to false negative result due to variability in viral load and collection technique. A negative result does not rule out a SARS-CoV-2 infection. Clinical correlation required. TESTING LABORATORY [facility] 12/27/2023 9:02 AM CDT [facility] Comment:Specimen submitted t o [facility] for testing. Other SPECIMEN FROM NASOPHARYNGEAL STRUCTURE / Unknown Non-Blood / Unknown 12/27/2023 8:19 AM CDT 12/27/2023 8:23 AM CDT Yo Alfredo MD MICROBIOLOGY [address] [address] * TROPONIN T (HS) ACUTE W/2HR REFLEX (12/27/2023 8:19 AM CDT) Pathologist [facility] TROPONIN T HS 6 6-10 ng/L ng/L 12/27/2023 8:55 AM CDT [facility] Blood BLOOD SPECIMEN / Unknown IV Start / Unknown 12/27/2023 8:19 AM CDT 12/27/2023 8:23 AM CDT Narrative [facility] - 12/27/2023 8:55 AM CDT hs-cTnT ([employer] [...] department patient population. Yo Alfredo MD CHEMISTRY [address] [place] [address] * CBC W PLT NO DIFF (12/27/2023 8:19 AM CDT) WHITE BLOOD COUNT 8.0 4.5 - 11.0 thou/cu mm 12/27/2023 8:26 AM CDT [facility] RED BLOOD COUNT 4.50 4.00 - 5.20 mil/cu mm 12/27/2023 8:26 AM CDT [facility] HEMOGLOBIN 14.2 12.0 - 16.0 g/dL 12/27/2023 8:26 AM CDT [facility] HEMATOCRIT 42.4 33.0 - 51.0 % 12/27/2023 8:26 AM CDT [facility] MCV 94 80 - 100 fL 12/27/2023 8:26 AM CDT [facility] MCH 31.6 26.0 - 34.0 pg 12/27/2023 8:26 AM CDT [facility] MCHC 33.5 32.0 - 36.0 g/dL 12/27/2023 8:26 AM CDT [facility] RDW 12.9 11.5 - 15.5 % 12/27/2023 8:26 AM CDT [facility] PLATELET COUNT 188 140 - 440 thou/cu mm 12/27/2023 8:26 AM CDT [facility] MPV 10.9 6.5 - 11.0 fL 12/27/2023 8:26 AM CDT [facility] NRBC 0.0 % 12/27/2023 8:26 AM CDT [facility] ABS NRBC 0.0 thou /cu mm 12/27/2023 8:26 AM CDT [facility] Blood BLOOD SPECIMEN / Unknown IV Start / Unknown 12/27/2023 8:19 AM CDT 12/27/2023 8:23 AM CDT [place] [address] * (ABNORMAL) BASIC METABOLIC PANEL (12/27/2023 8:19 AM CDT) SODIUM 140 136 - 145 mmol/L 12/27/2023 9:18 AM CDT [facility] POTASSIUM 12/27/2023 9:18 AM CDT [facility] Comment:Canceled- Specimen H emolyzed, Disposition Per Policy CHLORIDE 101 98 - 107 mmol/L 12/27/2023 9:18 AM CDT [facility] CO2,TOTAL 19(L) 22 - 29 mmol/L 12/27/2023 9:18 AM CDT [facility] ANION GAP 20(H) 5 - 18 12/27/2023 9:18 AM CDT [facility] GLUCOSE 106(H) 70 - 99 mg/dL 12/27/2023 9:18 AM CDT [facility] CALCIUM 9.7 8.6 - 10.0 mg/dL 12/27/2023 9:18 AM CDT [facility] BUN 8 6 - 20 mg/dL 12/27/2023 9:18 AM CDT [facility] CREATININE 0.75 0.50 - 0.90 mg/dL 12/27/2023 9:18 AM CDT [facility] BUN/CREAT RATIO 11 10 - 20 4 9:18 AM CDT [facility] eGFR >90 >90 mL/min/1.7 3m2 12/27/2023 9:18 AM CDT [facility] Comment:As of 2021, eG FR is calculated by the CKD-EPI creatinine equation without race adjustment. ??eGFR can be influenced by muscle mass, exercise, and diet. ??The reported eGFR is an estimation only and is only applicable if the renal function is stable. Blood BLOOD SPECIMEN / Unknown IV Start / Unknown 12/27/2023 8:19 AM CDT 12/27/2023 8:23 AM CDT Narrative [facility] - 12/27/2023 9:18 AM CDT Ok to report BMP without K per Jenny Rasheed RN Yo Alfredo MD CHEMISTRY [facility] [address] [place] [address] * FRAMING MACHINE TENDER THIN PREP PAP SCREEN IMAGED (08/20/2020 1:00 PM CDT) Case Report Gynecologic Cytology Report ? Case: [id number] ? Authorizing Provider: ??Megan Hernandez MD ??Collected: ? 08/20/2020 1300 ? Ordering Location: ? [facility] ?Received: ?08/23/2020 0927 ? First Screen: ?Baccam, Minie ? Specimen: ?FRAMING MACHINE TENDER ThinPrep Vial Screening, Cervical/Vaginal ? 09/01/2020 12:[address] [facility] INTERPRETATION/ RESULT NEGATIVE FOR INTRAEPITHELIAL LESION OR MALIGNANCY (NIL) (none) 09/01/2020 12:[address] [facility] IMEN ADEQUACY Satisfactory for evaluation Endocervical component present 09/01/2020 12:[address] [facility] HPV REQUEST HPV and PAP 09/01/2020 12:[address] [facility] Date of LMP 07/30/2020 09/01/2020 12:03 PM CDT [facility] Last Pap Date 08/19/2019 09/01/2020 12:[address] [facility] Last Pap Result NIL 12:[address] [facility] Additional Information 09/01/2020 12:[address] [facility] Comment: Interpreted at [facility] - [address], [place] [address] Automated Review Successful 09/01/2020 12:[address] [facility] Comment:Specimen processed s uccessfully by automated assembler clip on sunglasses device, ThinPrep Imaging System, [employer] ANCILLARY TESTING FRAMING MACHINE TENDER HPV Ordered, Please see separate report 09/01/2020 12:[address] [facility] Note The pap test is [...] and malignant lesions. 09/01/2020 12:03 PM CDT [facility] Other (Cervical/Vagina l) 08/20/2020 1:00 PM CDT 08/23/2020 9:27 AM CDT Megan Hernandez MD PATHOLOGY/CYTOLO GY [facility] [address] [place] [address], [place] * ANTI HCV (11/12/2010 11:20 AM CDT) ANTI HCV Non-reacti ve [facility] Blood specimen (specimen) BLOOD SPECIMEN / Unknown 11/12/2010 11:20 AM CDT 11/12/2010 11:08 AM CDT Capri Marquez MD SEND OUTS [facility] INTERNAL ZIP [address] [address] * ANTI HIV 1/2 (11/12/2010 11:20 AM CDT) ANTI HIV 1/2 Non-reacti ve [facility] Blood specimen (specimen) BLOOD SPECIMEN / Unknown 11/12/2010 11:20 AM CDT 11/12/2010 11:08 AM CDT Capri Marquez MD SEND OUTS [facility] INTERNAL ZIP [address] [address] from Last 3 Months or Most Recently [...] Code Status Discussion: Reviewed Preferences Care Teams Devulcanizer Operator Relationship Specialty Start Date End Date Pedro Boudreaux MD [address] [place] [address] PCP - General Family Practice 05/10/23 Leana Syed, RN, BSN [address] [place] [address] Nurse Navigator - Oncology Registered Nurse 05/29/23 Ceferino Catalan MD [address] [place] [id number] Surgery - Cardiothoracic 06/01/23
--- OUTSIDE RECORDS SUMMARY | 2024-01-23 08:24 | XMS_ITS | Clinical Summary ---
Author Organization [facility] Address [address] [place] [address] Care Team Providers Care Music Journalist Name Role Phone Madelaine Mitchell DO Unavailable Francesco Merritt MD Unavailable [phone] Gabe Carl MD Unavailable [phone] [place] [address] Primary Care Provider Allergies Active Allergy Reactions [...] (ASTELIN) 0.1 % nasal sprayIndications:P ost-nasal drip [place] 1 spray into both nostrils 2 times daily 1 Bottle 11 10/22/2018 Active metFORMIN (GLUCOPHAGE-XR) 500 MG 24 hr tabletIndications: PCOS (polycystic ovarian syndrome) TAKE 4 TABLETS BY MOUTH DAILY 360 tablet 1 04/08/2019 Active nystatin (MYCOSTATIN) 169730 UNIT/ML suspension TAKE 6 ML BY MOUTH [...] needed for anxiety. 15 capsule 01/03/2024 Active LORazepam (ATIVAN) 0.5 MG tablet Take 0.5 mg by mouth 2 times daily as needed for anxiety. Active ondansetron (ZOFRAN ODT) 4 MG ODT tab Take 1 tablet (4 mg) by mouth every 8 hours as needed for nausea. 10 tablet 01/03/2024 4 famotidine (PEPCID) 20 MG tablet Take 1 tablet (20 mg) by mouth 2 times daily for 10 days. 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 Plan colp 04/25/18 [place] - no visible lesions, no bx. Plan pap due in 1 year pap from previous pap 03/13/19 Pap reminder letter sent. ([facility]) 03/14/19 TE states pt is 25 weeks (ASAD 06/27/19), no appts in chart. ([facility]) CCT tracking Headache 12/16/2016 PCOS (polycystic [...] Encounters Date Type Department Care Team Description 01/11/2024 Telephone [facility] [place] [address] [place] [address] Madelaine Mitchell DO 01/05/2024 12:29 AM CDT - 01/05/2024 2:46 AM CDT Emergency [facility] Emergency Dept [address] [place] [address] Simone Kumar MD Alcohol withdrawal, uncomplicated (H) Discharge Disposition: Home or Self Care 01/05/2024 Travel 01/03/2024 12:57 AM CDT - 01/03/2024 4:39 AM CDT Emergency [facility] Emergency Dept [address] [place] [address] Angie Levi, DO Alcohol dependence with uncomplicated withdrawal (H); Alcohol-induced acute pancreatitis without infection or necrosis; Nausea and vomiting, unspecified vomiting type; Benzodiazepine misuse Discharge Disposition: Home or Self Care 01/03/2024 Travel 11/28/2023 2:03 PM CDT - 11/28/2023 5:34 PM CDT Emergency [facility] Emergency Dept [address] [place] [address] Matt Clements MD Anxiety reaction; Benzodiazepine withdrawal [...] 02/19/2032 02/18/2022, 05/03/2019, 05/03/2019, Additional history exists RSV VACCINE (1 - 1-dose 75+ series) 2064 HEPATITIS B IMMUNIZATION Completed 001, 08/06/1999, 06/07/1999 MENINGITIS IMMUNIZATION Completed 07/26/2006, 07/26 HPV IMMUNIZATION Completed 12/12/2011, , 11/12/2010, Additional history exists HIV SCREENING Completed 05/05/2016 DEPRESSION ACTION PLAN Completed 09/25/2018 HPV FOLLOW-UP Completed 08/20/2020, 05/0 07/2019, 08/19/2019, Additional history exists PAP FOLLOW-UP Completed 08/20/2020, 05/0 09/2020, 08/19/2019, Additional history exists RSV MONOCLONAL [...] TYPES DNA CERVICAL Routine 03/28/2018 9:20 AM SALES SUPPORT CONSULTANT PCOS (polycystic ovarian syndrome) PAP IMAGED THIN LAYER SCREEN Routine 03/28/2018 9:09 AM SALES SUPPORT CONSULTANT Encounter for general adult medical examination with abnormal findings HIV ANTIGEN ANTIBODY COMBO Routine 05/05/2016 9:51 AM SALES SUPPORT CONSULTANT test positive from Last 3 Months or [...] NRBCs 0.0 10e3/uL 01/05/2024 1:53 AM CDT LABORATORY Blood BLOOD SPECIMEN / Unknown Venipuncture / Unknown 01/05/2024 1:38 AM CDT 01/05/2024 1:50 AM CDT Yassine Cramer MD LAB - BLOOD ORDERABL ES LABORATORY [facility] Acute Care Lab [address] [facility] Lab (1st floor, no room number) [place] [address] * (ABNORMAL) Basic metabolic panel (01/05/2024 1:38 AM CDT) Only the most recent of2 resultswithin the time period is included. Sodium 140 135 - 145 mmol/L 01/05/2024 2:10 AM CDT LABORATORY Potassium 3.9 3.4 - 5.3 mmol/L 01/05/2024 2:10 AM T LABORATORY Chloride 102 98 - 107 mmol/L [...] MD LAB - BLOOD ORDERABL ES LABORATORY [facility] Acute Care Lab [address] Lab (1st floor, no room number) [place] [address] * (ABNORMAL) UA with Microscopic reflex [...] mg/dL 01/05/2024 2:04 AM CDT LABORATORY Specific [place] Urine 1.011 1.003 - 1.035 01/05/2024 2:04 [...] Cramer MD LAB - URINE ORDERABL ES RH LABORATORY [facility] Acute Care Lab [address] [facility] Lab (1st floor, no room number) [place] [address], [facility] * Urine Culture (01/05/2024 [...] - MICRO GENERAL ORDERABLES UU IDD LABORATORY [facility] Inf. Diseases Diag. Lab [address] [facility], [address] [place] [address], [place] * EKG 12-lead, tracing only (01/05/2024 1:13 AM CDT) Only the most recent of3 resultswithin the time period is included. Systolic Blood Pressure mmHg RADIOLOGY RESULTS Diastolic Blood Pressure mmHg RADIOLOGY RESULTS Ventricular Rate 52 BPM RAD IOLOGY RESULTS Atrial Rate 52 BPM RADIOLOG Y RESULTS IA Interval 160 ms RADIOLOG Y RESULTS QRS Duration 86 ms RADIOLO GY RESULTS QT 446 ms RADIOLOGY RESULTS QTc 414 ms RADIOLOGY RESULTS P [place] 37 degrees RADIOLOGY RESULTS R AXIS 21 degrees RADIOLOGY RESULTS T [place] 13 degrees RADIOLOGY RESULTS Interpretation ECG Sinus bradycardia with sinus arrhythmia Cannot rule out Anterior infarct , age undetermined Abnormal ECG When compared with ECG of 03-Jan-2024 02:23, Vent. rate has decreased by ??41 bpm Confirmed by - EMERGENCY ROOM, PHYSICIAN ([id number]), pictures editor CROW MOTTA ([id number]) on 01/05/2024 6:42:05 AM RADIOLOGY RESULTS 01/05/2024 1:13 AM CDT 01/05/2024 6:42 AM CDT Yassine Cramer MD ECG ORDERABLES RADIOLOGY RESULTS * US Abdomen Limited (01/03/2024 3:23 AM CDT) Anatomical Region Laterality Modality Abdomen/Pelvis Ultrasound 01/03/2024 3:23 AM CDT Impressions 01/03/2024 3:30 AM CDT IMPRESSION: 1. ??Hepatomegaly and hepatic steatosis. 2. ??Normal gallbladder. Narrative 01/03/2024 3:30 AM CDT EXAM: US ABDOMEN LIMITED LOCATION: [facility] DATE: 01/03/2024 INDICATION: upper abdominal pain COMPARISON: [...] - 01/03/2024 EXAM: US ABDOMEN LIMITED LOCATION: [facility] DATE: 01/03/2024 INDICATION: upper abdominal pain COMPARISON: [...] Angie Levi DO IMG US ORDERABLES * (ABNORMAL) Lipase (01/03/2024 1:34 AM CDT) Pathologist [facility] Lipase 85(H) 13 - 60 U/L 01/03/2024 2:01 AM CDT LABORATORY Blood BLOOD SPECIMEN / Unknown Venipuncture / Unknown 01/03/2024 1:34 AM CDT 01/03/2024 1:42 AM CDT Angie Levi DO LAB - BLOOD ORDERA BLES LABORATORY [facility] Acute Care Lab [address] Lab (1st floor, no room number) [place] [address], [facility] * HCG QUALitative (blood) (01/03/2024 1:34 AM CDT) Only the most recent of2 resultswithin the time period is included. Pathologist [facility] hCG Serum Qualitative Negative Negative HERMILO 01/03/2024 2:09 AM CDT LABORATORY Comment:This test is for scr eening purposes. Results should be interpreted along with the clinical picture. Confirmation testing is available if warranted by ordering [id number], HCG Quantitative . Blood BLOOD SPECIMEN / Unknown Venipuncture / Unknown 01/03/2024 1:34 AM CDT 01/03/2024 1:42 AM CDT Angie Levi DO LAB - BLOOD ORDERA BLES LABORATORY [facility] Lab [address] Lab (1st floor, no room number) [place] [address], [facility] * (ABNORMAL) Comprehensive metabolic panel [...] - 99 mg/dL 01/03/2024 2:01 AM CDT LABORATORY Alkaline Phosphatase 90 40 - 150 [...] - BLOOD ORDERA BLES Performing Organization Address City/[facility]/ZIP Co de Phone Number LABORATORY [facility] Care Lab [address] Lab (1st floor, no room number) [address] * (ABNORMAL) Alcohol level blood (01/03/2024 1:34 AM CDT) Alcohol ethyl 0.08(H) <=0.01 g/dL 01/03/2024 2:01 AM CDT LABORATORY Blood BLOOD SPECIMEN / Unknown Venipuncture / Unknown 01/03/2024 1:34 AM CDT 01/03/2024 1:42 AM CDT Angie Levi DO LAB - BLOOD ORDERA BLES LABORATORY [facility] Lab [address] Lab (1st floor, no room number) [address] * (ABNORMAL) Glucose by meter (01/03/2024 1:30 AM CDT) GLUCOSE BY METER POCT 123(H) 70 - 99 mg/dL 01/03/2024 1:38 AM CDT LABORATORY POC Blood, Capillary BLOOD SPECIMEN / Unknown 01/03/2024 1:30 AM CDT 01/03/2024 1:38 AM CDT Angie Levi DO LAB - BEAKER POCT LABORATORY [facility] Acute Care Lab [address] Lab (1st floor, no room number) [place] [address], [facility] * CTA Head Neck w [...] reconstruction technique CHRIS BOONE MD SYSTEM ID: ??[id number] Narrative 11/28/2023 4:[address] ANGIOGRAM [...] reconstruction technique CHRIS BOONE MD SYSTEM ID: [id number] Matt Clements MD IMG CT ORDERABL ES [...] reconstruction technique CHRIS BOONE MD SYSTEM ID: ??[id number] Narrative 11/28/2023 4:[address] OF [...] reconstruction technique CHRIS BOONE MD SYSTEM ID: [id number] Matt Clements MD IMG CT ORDERABL ES * Extra Red Top Tube (11/28/2023 12:57 PM CDT) Hold Specimen [facility] 11/28/2023 2:16 PM CDT LABORATORY Blood STRUCTURE OF LEFT UPPER LIMB / Unknown Venipuncture / Unknown 11/28/2023 12:57 PM CDT 11/28/2023 1:10 PM CDT Matt Clements MD LAB - BLOOD ORD ERABLES LABORATORY [facility] Lab [address] [facility] Lab (1st floor, no room number) [place] [address] * Extra Blue Top Tube (11/28/2023 12:57 PM CDT) Hold Specimen [facility] 11/28/2023 2:16 PM CDT LABORATORY Blood STRUCTURE OF LEFT UPPER LIMB / Unknown Venipuncture / Unknown 11/28/2023 12:57 PM CDT 11/28/2023 1:10 PM CDT Matt Clements MD LAB - BLOOD ORD ERABLES LABORATORY [facility] Acute Care Lab [address] Lab (1st floor, no room number) [place] [address] * Troponin T, High Sensitivity (11/28/2023 [...] - BLOOD ORD ERABLES Performing Organization Address [facility]/ZIP Co de Phone Number [facility] Acute Care Lab [address] Lab (1st floor, no room number) [place] [address] * TSH with free T4 reflex (11/28/2023 12:57 PM CDT) TSH 0.42 0.30 - 4.20 uIU/mL 11/28/2023 2:42 PM CDT LABORATORY Blood STRUCTURE OF LEFT UPPER LIMB / Unknown Venipuncture / Unknown 11/28/2023 12:57 PM CDT 11/28/2023 1:10 PM CDT Matt Clements MD LAB - BLOOD ORD ERABLES LABORATORY [facility] Lab [address] Lab (1st floor, no room number) [address] * Magnesium (11/28/2023 12:57 PM CDT) Magnesium 2.0 1.7 - 2.3 mg/dL 11/28/2023 2:31 PM CDT LABORATORY Blood STRUCTURE OF LEFT UPPER LIMB / Unknown Venipuncture / Unknown 11/28/2023 12:57 PM CDT 11/28/2023 1:10 PM CDT Matt Clements MD LAB - BLOOD ORD ERABLES Performing Organization Address City/[facility]/ZIP Co de Phone Number LABORATORY [facility] Care Lab [address] Lab (1st floor, no room number) [address] * (ABNORMAL) HPV High Risk Types DNA Cervical (03/28/2018 9:20 AM SALES SUPPORT CONSULTANT) HPV Source [employer] 04/03/2018 7:38 AM SALES SUPPORT CONSULTANT [facility] HPV 16 DNA Negative NEG^Nega tive 04/03/2018 4:18 PM SALES SUPPORT CONSULTANT [facility] HPV 18 DNA Negative NEG^Nega tive 04/03/2018 4:18 PM SALES SUPPORT CONSULTANT [facility] Other HR HPV Positive(A) NEG^Nega tive 04/03/2018 4:18 PM SALES SUPPORT CONSULTANT [facility] Final Diagnosis This patient's sample is positive for other HR HPV DNA (types 31, 33, 35, 39, 45, 51, 52, 56, 58, 59, 66 or 68), not HPV 16 or HPV 18 DNA. This result requires clinical correlation with concurrent cytology findings. 04/03/2018 4:18 PM SALES SUPPORT CONSULTANT [facility] Comment: This test was developed and its performance characteristics determined by the [facility], Molecular Diagnostics Laboratory. It has not [...] Specimen Description Cervical Cells 04/03/2018 7:38 AM SALES SUPPORT CONSULTANT [facility] Comment:[id number] 03/28/2018 9:20 AM SALES SUPPORT CONSULTANT 03/28/2018 2:56 PM SALES SUPPORT CONSULTANT Tristen Jiang APRN HOSPICE BEREAVEMENT COORDINATOR LAB - BLOOD ORDERABLES [facility] [address] [place] [address] * (ABNORMAL) Pap imaged thin layer screen reflex to HPV if ASCUS - recommend age 25 - 29 (03/28/2018 9:09 AM SALES SUPPORT CONSULTANT) PAP ASC-US(A) JOSE JUAN Manzano Report Patient Name: MADI MOSS MR#: [id number] Specimen #: [id number] Collected: 03/28/2018 Received: 03/29/2018 Reported: 04/02/2018 14:41 [...] Carmine Stevens M.D. Processed and screened at [facility] CLINICAL HISTORY: LMP: 03/05/2018 A previous normal pap Date of Last Pap: 01/01/2015, Papanicolaou Test Limitations: ??Cervical cytology is a screening test with limited sensitivity; regular screening is critical for cancer prevention; Pap tests are primarily effective for the diagnosis/preventi on of squamous cell carcinoma, not adenocarcinomas or other cancers. TESTING LAB LOCATION: [address] ??[address] COLLECTION SITE: Client: ??[facility] Location: JAVON MANZANO (R) Cytologic material (specimen) 03/28/2018 9:09 AM SALES SUPPORT CONSULTANT 03/29/2018 11:25 AM SALES SUPPORT CONSULTANT Tristen Jiang APRN HOSPICE BEREAVEMENT COORDINATOR LAB - OPTIME CLINICAL SPECIMEN COPATH * HIV Antigen Antibody Combo (05/05/2016 9:51 AM SALES SUPPORT CONSULTANT) HIV Antigen Antibody Combo Nonreactive HIV-1 p24 Ag & HIV-1/HIV-[address] [facility] Blood specimen (specimen) 05/05/2016 9:51 AM SALES SUPPORT CONSULTANT 05/05/2016 9:56 AM SALES SUPPORT CONSULTANT Madelaine Mitchell DO LAB - BLOOD ORDER [facility] [address] [place], [place] [address] from Last 3 Months or Most Recently Relevant to Health Maintenance Care Teams Music Journalist Relationship Specialty Start Date End Date [facility], [address] [address] PCP - General 11/28/23 Madelaine Mitchell DO dice person 07/26/16 Francesco Merritt MD [id number] [place] [address] Family Medicine - Sports Medicine 12/14/18 Gabe Carl MD [address] [place] [address] VINICIUS MANNING [address] Assigned PCP 05/09/21
--- OUTSIDE RECORDS SUMMARY | 2024-01-23 08:24 | XMS_ITS | Encounter Summary ---
Author Organization [facility] Address [address] [place] [address] Care Team Providers Care Supervisor Microbiology Technologists Name Role Phone Madelaine Mitchell DO Unavailable [phone] Francesco Merritt MD Unavailable Gabe Carl MD Unavailable [phone] [place] [address] Primary Care Provider Reason for Visit * Reason Comments Dizziness Headache Anxiety Encounter Details Date Type Department Care Team (Late st Contact Info) Description 01/05/2024 12:29 AM CDT - 01/05/2024 2:46 AM CDT Emergency [facility] Emergency Dept [address] [place] [address] [phone] Simone Kumar MD [facility] [address] [place], [place] [id number] Alcohol withdrawal, uncomplicated (H) Discharge Disposition: Home [...] Care Everywhere. * Alcohol Withdrawal: General Info (Jordanian) documented in this encounter Medications at Time of Discharge Medication Sig Dispensed Refills Start Date End Date azelastine (ASTELIN) 0.1 % nasal sprayIndications:Post -nasal drip [place] 1 spray into both nostrils 2 times daily 1 Bottle 11 10/22/2018 BIOTIN PO chlordiazePOXIDE (LIBRIUM) 25 MG capsule Take 1 capsule (25 mg) by mouth 3 times daily as needed for anxiety. 15 capsule 01/03/2024 diazepam (VALIUM) 2 MG tablet 1 TABLET [...] muscle spasms 20 tablet 04/30/2021 nystatin (MYCOSTATIN) [id number] UNIT/ML suspension TAKE 6 ML BY MOUTH [...] for nausea or vomiting 20 tablet 03/31/2021 famotidine (PEPCID) 20 MG tablet Take 1 tablet (20 mg) by mouth 2 times daily for 10 days. 20 tablet 01/03/2024 01/13/2024 ondansetron (ZOFRAN ODT) 4 MG ODT tab [...] Albuterol Hydroxyzine pamoate Oxycodone Surgical History Colonoscopy [place] teeth extraction Knee surgery Lasik bilateral ORIF [...] Bilirubin Urine Negative Ketones Urine Negative Specific [place] Urine 1.011 Blood Urine Trace (*) pH [...] age undetermined Abnormal ECG Rate 52 bpm. [place] interval 160 ms. QRS duration 86 ms. [...] Documentation None Medical Decision Making / Diagnosis [facility] Diagnoses: None MIPS None MDM Neda Moss [...] started having adverse symptoms approx one hour PACKAGER OR PACKER AND WEIGHER. Otherwise vss documented in this encounter Plan [...] LAB - BLOOD ORDERABL ES RH LABORATORY [facility] [address] [facility] (1st floor, no room number) [place] [address], [facility] * (ABNORMAL) Basic metabolic [...] MD LAB - BLOOD ORDERABL ES LABORATORY [facility] Acute Care Lab [address] [facility] Lab (1st floor, no room number) [place] [address], [facility] * Urine Culture (01/05/2024 [...] - MICRO GENERAL ORDERABLES UU IDD LABORATORY [facility] Inf. Diseases Diag. Lab [address] [facility], [address] [place] [address] * (ABNORMAL) UA with Microscopic [...] mg/dL 01/05/2024 2:04 AM CDT LABORATORY Specific [place] Urine 1.011 1.003 - 1.035 01/05/2024 2:04 [...] Urine Culture ordered based on laboratory criteria Yasisne Cramer MD LAB - URINE ORDERABL ES LABORATORY [facility] Acute Care Lab [address] Lab (1st floor, no room number) [place] [address] * EKG 12-lead, tracing only (01/05/2024 1:13 AM CDT) Systolic Blood Pressure mmHg RADIOLOGY RESULTS Diastolic Blood Pressure mmHg RADIOLOGY RESULTS Ventricular Rate 52 BPM RAD IOLOGY RESULTS Atrial Rate 52 BPM RADIOLOG Y RESULTS [place] Interval 160 ms RADIOLOG Y RESULTS QRS Duration 86 ms RADIOLO GY RESULTS QT 446 ms RADIOLOGY RESULTS QTc 414 ms RADIOLOGY RESULTS P [place] 37 degrees RADIOLOGY RESULTS R AXIS 21 degrees RADIOLOGY RESULTS T [place] 13 degrees RADIOLOGY RESULTS Interpretation ECG Sinus bradycardia with sinus arrhythmia Cannot rule out Anterior infarct , age undetermined Abnormal ECG When compared with ECG of 03-Jan-2024 02:23, Vent. rate has decreased by ??41 bpm Confirmed by - EMERGENCY ROOM, PHYSICIAN ([id number]), editor producer CROW MOTTA ([id number]) on 01/05/2024 6:42:05 AM RADIOLOGY RESULTS 01/05/2024 1:13 AM CDT 01/05/2024 6:42 AM CDT Yassine Cramer MD ECG ORDERABLES RADIOLOGY RESULTS documented in this encounter Visit Diagnoses Diagnosis Alcohol withdrawal, uncomplicated (H) documented in this encounter Administered Medications [...] as of this encounter Care Teams Supervisor Microbiology Technologists Relationship Specialty Start Date End Date [facility], [address] [address] PCP - General 11/28/23 Madelaine Mitchell DO daily sales audit clerk 07/26/16 Francesco Merritt MD [facility] [place] [address] Family Medicine - Sports Medicine 12/14/18 Gabe Carl MD [facility] [facility] VINICIUS MANNING [address] Assigned PCP 05/09/21 documented as of this encounter
--- OUTSIDE RECORDS SUMMARY | 2024-01-23 08:24 | XMS_ITS | Encounter Summary ---
Author Organization [facility] Address [address] [place] [address] Care Team Providers Care Foundry Worker Apprentice Name Role Phone Madelaine Mitchell DO Unavailable [phone] Francesco Merritt MD Unavailable [phone] Gabe Carl MD Unavailable [phone] [facility] Primary Care Provider Encounter Details Date [...] documented as of this encounter Care Teams Foundry Worker Apprentice Relationship Specialty Start Date End Date [address] [address] PCP - General 11/28/23 Madelaine Mitchell DO electrician front 07/26/16 Francesco Merritt MD [address] [facility] [address] [place] [address] Family Medicine - Sports Medicine 12/14/18 Gabe Carl MD [address] [facility] VINICIUS MANNING [address] Assigned PCP 05/09/21 documented as of this encounter
--- OUTSIDE RECORDS SUMMARY | 2024-01-23 08:24 | XMS_ITS | Encounter Summary ---
Author Organization [facility] Address [address] [place] [address] Care Team Providers Care Tank Tender Name Role Phone Madelaine Mitchell DO Unavailable [phone] Francesco Merritt MD Unavailable [phone] Gabe Carl MD Unavailable [phone] [facility] Primary Care Provider Encounter Details Date [...] documented as of this encounter Care Teams Tank Tender Relationship Specialty Start Date End Date [address] [address] PCP - General 11/28/23 Madelaine Mitchell DO fiberglass ski maker 07/26/16 Francesco Merritt MD [address] [facility] [address] [place] [address] Family Medicine - Sports Medicine 12/14/18 Gabe Carl MD [address] [facility] VINICIUS MANNING [address] Assigned PCP 05/09/21 documented as of this encounter
--- OUTSIDE RECORDS SUMMARY | 2024-01-23 08:24 | XMS_ITS | Encounter Summary ---
Author Organization [place] Address [address] [facility] [place] [address] Care Team Providers Care System Designer Name Role Phone Madelaine Mitchell DO Unavailable [phone] Rosamaria Jones MD Primary Care Provider [phone] Francesco Merritt MD Unavailable [phone] Gabe Carl MD Unavailable [phone] Encounter Details Date Type Department Care Team (Late st Contact Info) Description 08/17/2023 Medical Correspondence [facility] Info Mgmt [facility] [address] [place] [address] Scan, Non-Provider Social History Tobacco [...] documented as of this encounter Care Teams System Designer Relationship Specialty Start Date End Date Rosamaria Jones MD [address] [facility] [address] [place] [address] PCP - General Internal Medicine 10/06/18 11/27/23 Madelaine Mitchell DO director learning services 07/26/16 Francesco Merritt MD [facility] [place] [address] Family Medicine - Sports Medicine 12/14/18 Gabe Carl MD [address] [facility] VINICIUS MANNING [address] Assigned PCP 05/09/21 documented as of this encounter
--- OUTSIDE RECORDS SUMMARY | 2024-01-23 08:24 | XMS_ITS | Encounter Summary ---
Author Organization [place] Address [address] [place] [address]. [place] [address] Care Team Providers Care Video Control Engineer Name Role Phone Madelaine Mitchell DO Unavailable Francesco Merritt MD Unavailable Gabe Carl MD Unavailable [phone] [place] [address] Primary Care Provider Reason for Visit * Reason Comments Chest Pain Encounter Details Date Type Department Care Team (Late st Contact Info) Description 11/28/2023 2:03 PM CDT - 11/28/2023 5:[address] [facility] Emergency Dept [address] [place] [address] [phone] Matt Clements MD [address] [place] [address] Anxiety reaction; Benzodiazepine withdrawal without complication (H) [...] (ASTELIN) 0.1 % nasal sprayIndications:Post- nasal drip [place] 1 spray into both nostrils 2 times [...] muscle spasms 20 tablet 04/30/2021 nystatin (MYCOSTATIN) 660518 UNIT/ML suspension TAKE 6 ML BY MOUTH [...] help her sleep. Review of External Notes [place] notes reviewed from 12/14/2023. The patient is followed for pituitary adenoma. Past Medical History Medical History and Problem List Frequent UTI Gastritis Depression PCOS Anxiety Mononucleosis Shingles Carcinoid tumor of right lung Pre-diabetes Exercise-induced asthma Arthritis Medications Buspar Metformin Relafen [place] Flexeril Ativan Albuterol Ambien Robaxin Vistaril Roxicodone [...] Bilirubin Urine Negative Ketones Urine Negative Specific [place] Urine 1.017 Blood Urine Negative pH Urine [...] reconstruction technique CHRIS BOONE MD SYSTEM ID: [id number] CT Head w/o Contrast Final Result IMPRESSION: Normal head CT. Radiation dose for this scan was reduced using automated exposure control, adjustment of the mA and/or kV according to patient size, or iterative reconstruction technique CHRIS BOONE MD SYSTEM ID: [id number] EKG ECG taken at 1243, ECG read at 1415 Normal sinus rhythm No significant change as compared to prior, dated 09/15/22. Rate 70 bpm. SD interval 156 ms. QRS duration 88 ms. [...] Any # urogenital alanna, single or mixed [facility] Emergency Dept discharge antibiotic prescribed (If applicable): None Treatment recommendations per [facility] ED Lab Result Urine Culture protocol: No [...] reconstruction technique CHRIS BOONE MD SYSTEM ID: ??[id number] Narrative 11/28/2023 4:[address] ANGIOGRAM [...] reconstruction technique CHRIS BOONE MD SYSTEM ID: [id number] Matt Clements MD IMG CT ORDERABL ES [...] reconstruction technique CHRIS BOONE MD SYSTEM ID: ??[id number] Narrative 11/28/2023 4:[address] OF [...] fractures of the visualized bones. Procedure Note Chirs Boone MD - 11/28/2023 CT OF THE [...] reconstruction technique CHRIS BOONE MD SYSTEM ID: [id number] Matt Clements MD IMG CT ORDERABL ES * Urine Culture (11/28/2023 2:43 PM CDT) Culture 50,000-100,000 CFU/mL Mixture of urogenital alanna 11/30/2023 1:11 PM CDT [facility] Urine MID-STREAM URINE SPECIMEN / Unknown Non-blood Collection / Unknown 11/28/2023 2:43 PM CDT 11/28/2023 3:13 PM CDT Matt Clements MD LAB - MICRO GEN ERAL ORDERABLES [facility] Inf. Diseases Diag. Lab [address] [facility], [address] [place] [address] * (ABNORMAL) UA with Microscopic reflex to [...] mg/dL 11/28/2023 3:17 PM CDT LABORATORY Specific [place] Urine 1.017 1.003 - 1.035 11/28/2023 3:17 [...] Tyree MD LAB - URINE ORD ERABLES [facility] Lab [address] Lab (1st floor, no room number) [place] [phone] * HCG qualitative Blood (11/28/2023 12:57 PM CDT) hCG Serum Qualitative Negative Negative HERMILO 11/28/2023 2:33 PM CDT LABORATORY Comment:This test is for scr eening purposes. Results should be interpreted along with the clinical picture. Confirmation testing is available if warranted by ordering [id number], HCG Quantitative . Blood STRUCTURE OF LEFT UPPER LIMB / Unknown Venipuncture / Unknown 11/28/2023 12:57 PM CDT 11/28/2023 1:10 PM CDT Matt Clements MD LAB - BLOOD ORD ERABLES Performing Organization Address [facility]/ZIP Co de Phone Number [facility] Lab [address] Lab (1st floor, no room number) [place] [phone] * TSH with free T4 reflex (11/28/2023 12:57 PM CDT) Pathologist [facility] TSH 0.42 0.30 - 4.20 uIU/mL 11/28/2023 2:42 PM CDT LABORATORY Blood STRUCTURE OF LEFT UPPER LIMB / Unknown Venipuncture / Unknown 11/28/2023 12:57 PM CDT 11/28/2023 1:10 PM CDT Matt Clements MD LAB - BLOOD ORD ERABLES [facility] Lab [address] Lab (1st floor, no room number) [place] [phone] * Magnesium (11/28/2023 12:57 PM CDT) Pathologist [facility] Magnesium 2.0 1.7 - 2.3 mg/dL 11/28/2023 2:31 PM CDT [facility] Blood STRUCTURE OF LEFT UPPER LIMB / Unknown Venipuncture / Unknown 11/28/2023 12:57 PM CDT 11/28/2023 1:10 PM CDT Matt Clements MD LAB - BLOOD ORD ERABLES [facility] Acute Care Lab [address] Lab (1st floor, no room number) [place] [address], [place] * Extra Red Top Tube (11/28/2023 12:57 PM CDT) Hold Specimen C 11/28/2023 2:16 PM CDT [facility] Blood STRUCTURE OF LEFT UPPER LIMB / Unknown Venipuncture / Unknown 11/28/2023 12:57 PM CDT 11/28/2023 1:10 PM CDT Matt Clements MD LAB - BLOOD ORD ERAINDIRA [facility] Care Lab [address] Lab (1st floor, no room number) [place] [phone] [place] [address] * Extra Blue Top Tube (11/28/2023 12:57 PM CDT) Hold Specimen JIC 11/28/2023 2:16 PM CDT [facility] Blood STRUCTURE OF LEFT UPPER LIMB / Unknown Venipuncture / Unknown 11/28/2023 12:57 PM CDT 11/28/2023 1:10 PM CDT Matt Clements MD LAB - BLOOD ORD ERABLES [facility] Care Lab [address] Lab (1st floor, no room number) [place] [address] * CBC with platelets and differential (11/28/2023 [...] MD LAB - BLOOD ORD ERABLES LABORATORY [facility] Acute Care Lab [address] Lab (1st floor, no room number) [place] [address], [facility] * Troponin T, High Sensitivity (11/28/2023 12:57 PM CDT) [facility] Troponin T, High Sensitivity <6 <=14 ng/L [...] MD LAB - BLOOD ORD ERABLES LABORATORY [facility] Acute Care Lab [address] Lab (1st floor, no room number) [place] [address], [facility] * (ABNORMAL) Basic metabolic panel (11/28/2023 [...] MD LAB - BLOOD ORD ERABLES LABORATORY [facility] Acute Care Lab [address] Lab (1st floor, no room number) [place] [address], [facility] * EKG 12-lead, tracing only (11/28/2023 12:43 PM CDT) Systolic Blood Pressure mmHg RADIOLOGY RESULTS Diastolic Blood Pressure mmHg RADIOLOGY RESULTS Ventricular Rate 70 BPM RAD IOLOGY RESULTS Atrial Rate 70 BPM RADIOLOG Y RESULTS SD Interval 156 ms RADIOLOG Y RESULTS QRS Duration 88 ms RADIOLO GY RESULTS QT 388 ms RADIOLOGY RESULTS QTc 419 ms RADIOLOGY RESULTS P [place] 12 degrees RADIOLOGY RESULTS R AXIS 35 degrees RADIOLOGY RESULTS T [place] 6 degrees RADIOLOGY RESULTS Interpretation ECG Sinus rhythm Normal ECG When compared with ECG of 15-Sep-2022 08:14, No significant change was found Unconfirmed report - interpretation of this ECG is computer generated - see medical record for final interpretation Confirmed by - EMERGENCY ROOM, PHYSICIAN ([id number]), publication editor José Olsen ([id number]) on 11/28/2023 2:10:41 PM RADIOLOGY RESULTS 11/28/2023 [...] documented as of this encounter Care Teams Video Control Engineer Relationship Specialty Start Date End Date [facility], [address] [address] PCP - General 11/28/23 Madelaine Mitchell DO food manager 07/26/16 Francesco Merritt MD [address] [facility] [address] [place] [address] Family Medicine - Sports Medicine 12/14/18 Gabe Carl MD [address] [facility] [place] [address] Assigned PCP 05/09/21 documented as of this encounter
--- OUTSIDE RECORDS SUMMARY | 2024-01-23 08:24 | XMS_ITS | Encounter Summary ---
Author Organization [facility] Address [address] [place] [address] Care Team Providers Care Molded Goods Controls Operator Name Role Phone DarwinMadelaine patel Unavailable Francesco Merritt MD Unavailable [phone] Gabe Carl MD Unavailable [phone] [place] [address] Primary Care Provider Reason for Visit * Reason Comments Withdrawal Encounter Details Date Type Department Care Team (Late st Contact Info) Description 01/03/2024 12:57 AM CDT - 01/03/2024 4:39 AM CDT Emergency [facility] Emergency Dept [address] [place] [address] [phone] Angie Levi DO [facility] [address] [place] [address] Alcohol dependence with uncomplicated withdrawal (H); Alcohol-induced [...] Care Everywhere. * Alcohol Withdrawal: General Info (Japanese) documented in this encounter Medications at Time of Discharge Medication Sig Dispensed Refills Start Date End Date azelastine (ASTELIN) 0.1 % nasal sprayIndications:Post -nasal drip [place] 1 spray into both nostrils 2 times [...] muscle spasms 20 tablet 04/30/2021 nystatin (MYCOSTATIN) [id number] UNIT/ML suspension TAKE 6 ML BY MOUTH [...] way to a medical detox program in [place] today though developed increasing nonbloody vomiting as [...] methocarbamol (ROBAXIN) 500 MG tablet nystatin (MYCOSTATIN) [id number] UNIT/ML suspension oxyCODONE (ROXICODONE) 5 MG tablet [...] Duration 78 QT 372 QTc 462 P [place] 62 R AXIS 44 T [place] 30 Interpretation ECG Sinus rhythm Normal ECG [...] Documentation None Medical Decision Making / Diagnosis [facility] Diagnoses: None MIPS None MDM Neda Moss [...] stating that she plans to go to [place] for her formal detox program. In the [...] AM CDT EXAM: US ABDOMEN LIMITED LOCATION: [facility] DATE: 01/03/2024 INDICATION: upper abdominal pain COMPARISON: [...] - 01/03/2024 EXAM: US ABDOMEN LIMITED LOCATION: [facility] DATE: 01/03/2024 INDICATION: upper abdominal pain COMPARISON: [...] RESULTS QTc 462 ms RADIOLOGY RESULTS P [place] 62 degrees RADIOLOGY RESULTS R AXIS 44 degrees RADIOLOGY RESULTS T [place] 30 degrees RADIOLOGY RESULTS Interpretation ECG Sinus rhythm Normal ECG When compared with ECG of 28-Nov-2023 12:43, No significant change was found Unconfirmed report - interpretation of this ECG is computer generated - see medical record for final interpretation Confirmed by - EMERGENCY ROOM, PHYSICIAN ([id number]), publications editor YEISON LAU ([id number]) on 01/03/2024 6:46:06 AM [...] - BLOOD ORDERA BLES Performing Organization Address City/[facility]/ZIP Co de Phone Number [facility] Lab [address] Lab (1st floor, no room number) [place] [phone] * HCG QUALitative (blood) (01/03/2024 1:34 AM CDT) hCG Serum Qualitative Negative Negative HERMILO 01/03/2024 2:09 AM CDT [facility] Comment:This test is for scr eening purposes. Results should be interpreted along with the clinical picture. Confirmation testing is available if warranted by ordering [id number], HCG Quantitative . Blood BLOOD SPECIMEN / Unknown Venipuncture / Unknown 01/03/2024 1:34 AM CDT 01/03/2024 1:42 AM CDT Angie Levi DO LAB - BLOOD ORDERA BLES Performing Organization Address [facility] Co de Phone Number [facility] Lab [address] Lab (1st floor, no room number) [place] [phone] * (ABNORMAL) Alcohol level blood (01/03/2024 1:34 AM CDT) Alcohol ethyl 0.08(H) <=0.01 g/dL 01/03/2024 2:01 AM CDT [facility] Blood BLOOD SPECIMEN / Unknown Venipuncture / Unknown 01/03/2024 1:34 AM CDT 01/03/2024 1:42 AM CDT Angie Levi DO LAB - BLOOD ORDERA BLES Performing Organization Address City/[facility]/ZIP Co de Phone Number LABORATORY [facility] Acute Care Lab [address] Lab (1st floor, no room number) [place] [address] * (ABNORMAL) Lipase (01/03/2024 1:34 AM CDT) Lipase 85(H) 13 - 60 U/L 01/03/2024 2:01 AM CDT LABORATORY Blood BLOOD SPECIMEN / Unknown Venipuncture / Unknown 01/03/2024 1:34 AM CDT 01/03/2024 1:42 AM CDT Angie Levi DO LAB - BLOOD ORDERA BLES LABORATORY [facility] Lab [address] Lab (1st floor, no room number) [place] [address] * (ABNORMAL) Comprehensive metabolic panel [...] DO LAB - BLOOD ORDERA BLES LABORATORY [facility] Care Lab [address] [facility] Lab (1st floor, no room number) [place] [address] * (ABNORMAL) Glucose by meter (01/03/2024 1:30 AM CDT) [facility] GLUCOSE BY METER POCT 123(H) 70 - 99 mg/dL 01/03/2024 1:38 AM CDT LABORATORY POC Blood, Capillary BLOOD SPECIMEN / Unknown 01/03/2024 1:30 AM CDT 01/03/2024 1:38 AM CDT Angie Levi DO LAB - BEAKER POCT LABORATORY [facility] Acute Care Lab [address] [facility] Lab (1st floor, no room number) [place] [address], [facility] documented in this encounter Visit Diagnoses Diagnosis Alcohol dependence with uncomplicated withdrawal (H) Other and unspecified alcohol dependence, unspecified drinking [...] On Mon01/03/24 at 0325, For 1 dose 0327 ($Given - Provi vidhi: Soco Pace RN) [...] dose 0248 ($Given - Provi vidhi: Soco Pace, CASTRO) documented in this encounter Additional Health Concerns Assessment Noted Time PHQ-9 Depression Total Score: 21 023 10:16 AM CDT documented as of this encounter Care Teams Molded Goods Controls Operator Relationship Specialty Start Date End Date [facility], [address] [address] PCP - General 11/28/23 Madelaine Mitchell DO rail signal worker 07/26/16 Francesco Merritt MD [address] [facility] [address] [place] [address] Family Medicine - Sports Medicine 12/14/18 Gabe Carl MD [address] [facility] [place] [address] Assigned PCP 05/09/21 documented as of this encounter
--- OUTSIDE RECORDS SUMMARY | 2024-01-23 08:24 | XMS_ITS | Encounter Summary ---
Author Organization [facility] Address [address] [place] [address]. [place] [address] Care Team Providers Care Web Marketing Manager Name Role Phone Madelaine Mitchell DO Unavailable Francesco Merritt MD Unavailable Gabe Carl MD Unavailable [phone] [place] [address] [facility] Primary Care Provider Encounter Details Date Type Department Care Team (Late st Contact Info) Description 01/11/[address] [facility] Women's [address] [place] [address] [place] [address] Madelaine Mitchell DO [address] [facility] [address] [place], [place] [address] Social History Tobacco Use Types Packs/Day Years [...] encounter Miscellaneous Notes * Telephone Encounter - Madelaine Mitchell DO - 01/11/2024 4:45 PM CDT May need note for work Dr. Madelaine Mitchell DO Obstetrics and Gynecology [facility] documented in this encounter Plan of Treatment Not on file documented as of this encounter Visit Diagnoses Not on filedocumented in this encounter Additional Health Concerns Assessment Noted Time PHQ-9 Depression Total Score: 21 023 10:16 AM CDT documented as of this encounter Care Teams Web Marketing Manager Relationship Specialty Start Date End Date [facility], [address] [address] PCP - General 11/28/23 Madelaine Mitchell DO consultant technology 07/26/16 Francesco Merritt MD [address] [place] [address] Family Medicine - Sports Medicine 12/14/18 Gabe Carl MD [address] [place] [address] [place] [address] Assigned PCP 05/09/21 documented as of this encounter
--- OUTSIDE RECORDS SUMMARY | 2024-01-23 08:24 | XMS_ITS | Encounter Summary ---
Author Organization [place] Address [address] [place] [address] Care Team Providers Care Director Of Emergency Nursing Name Role Phone Madelaine Mitchell DO Unavailable [phone] Francesco Merritt MD Unavailable [phone] Gabe Carl MD Unavailable [phone] [facility] Primary Care Provider Encounter Details Date [...] documented as of this encounter Care Teams Director Of Emergency Nursing Relationship Specialty Start Date End Date [address] [address] PCP - General 11/28/23 Madelaine Mitchell DO furnace cleaner 07/26/16 Francesco Merritt MD [address] [facility] [address] [place] [address] Family Medicine - Sports Medicine 12/14/18 Gabe Carl MD [address] [facility] [place] [address] Assigned PCP 05/09/21 documented as of this encounter
--- OUTSIDE RECORDS SUMMARY | 2024-01-23 08:24 | XMS_ITS | Referral Summary ---
Author Organization [place] Address [address] [place] [address] Care Team Providers Care Resource Recovery Engineer Name Role Phone Madelaine Mitchell DO Unavailable Francesco Merritt MD Unavailable Gabe Carl MD Unavailable [phone] [place] [address] Primary Care Provider Encounters Date Type Department Care Team Description 01/11/2024 Telephone [facility] [address] [facility] [address] [place] [address] Madelaine Mitchell DO 01/05/2024 Travel 01/05/2024 12:29 AM CDT - 01/05/2024 2:46 AM CDT Emergency [facility] Emergency Dept [address] [place] [address] Simone Kumar MD Alcohol withdrawal, uncomplicated (H) Discharge Disposition: Home or Self Care 01/03/2024 Travel 01/03/2024 12:57 AM CDT - 01/03/2024 4:39 AM CDT Emergency [facility] Emergency Dept [address] [place] [address] Angie Levi DO Alcohol dependence with uncomplicated withdrawal (H); Alcohol-induced acute pancreatitis without infection or necrosis; Nausea and vomiting, unspecified vomiting type; Benzodiazepine misuse Discharge Disposition: Home or Self Care 11/28/2023 Travel 11/28/2023 2:03 PM CDT - 11/28/2023 5:34 PM CDT Emergency [facility] Emergency Dept [address] [place] [address] Matt Clements MD Anxiety reaction; Benzodiazepine withdrawal [...] (ASTELIN) 0.1 % nasal sprayIndications:P ost-nasal drip Brick 1 spray into both nostrils 2 times daily 1 Bottle 11 10/22/2018 Active metFORMIN (GLUCOPHAGE-XR) 500 MG 24 hr tabletIndications: PCOS (polycystic ovarian syndrome) TAKE 4 TABLETS BY MOUTH DAILY 360 tablet 1 04/08/2019 Active nystatin (MYCOSTATIN) 620575 UNIT/ML suspension TAKE 6 ML BY MOUTH [...] Overview: Added automatically from request for surgery [id number] 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 Plan colp 04/25/18 [place] - no visible lesions, no bx. Plan pap due in 1 year pap from previous pap 03/13/19 Pap reminder letter sent. ([facility]) 03/14/19 TE states pt is 25 weeks (ASAD 06/27/19), no appts in chart. ([facility]) CCT tracking Headache 12/16/2016 PCOS (polycystic ovarian [...] TYPES DNA CERVICAL Routine 03/28/2018 9:20 AM MOSS PICKER PCOS (polycystic ovarian syndrome) PAP IMAGED THIN LAYER SCREEN Routine 03/28/2018 9:09 AM MOSS PICKER Encounter for general adult medical examination with abnormal findings HIV ANTIGEN ANTIBODY COMBO Routine 05/05/2016 9:51 AM MOSS PICKER test positive from Last 3 Months or [...] MD LAB - BLOOD ORDERABL ES LABORATORY [facility] Acute Care Lab [address] Lab (1st floor, no room number) [place] [address] * (ABNORMAL) Basic metabolic panel (01/05/2024 [...] MD LAB - BLOOD ORDERABL ES LABORATORY [facility] Lab [address] Lab (1st floor, no room number) [place] [address] * (ABNORMAL) UA with Microscopic reflex [...] mg/dL 01/05/2024 2:04 AM CDT LABORATORY Specific [place] Urine 1.011 1.003 - 1.035 01/05/2024 2:04 [...] LAB - URINE ORDERABL ES RH LABORATORY [facility] Acute Care Lab [address] [facility] Lab (1st floor, no room number) [place] [address], [facility] * Urine Culture (01/05/2024 1:28 AM CDT) [...] - MICRO GENERAL ORDERABLES UU IDD LABORATORY [facility] Inf. Diseases Diag. Lab [address] [place] [address], [facility] * EKG 12-lead, tracing only (01/05/2024 1:13 AM CDT) Only the most recent of3 resultswithin the time period is included. Systolic Blood Pressure mmHg RADIOLOGY RESULTS Diastolic Blood Pressure mmHg RADIOLOGY RESULTS Ventricular Rate 52 BPM RAD IOLOGY RESULTS Atrial Rate 52 BPM RADIOLOG Y RESULTS KS Interval 160 ms RADIOLOG Y RESULTS QRS Duration 86 ms RADIOLO GY RESULTS QT 446 ms RADIOLOGY RESULTS QTc 414 ms RADIOLOGY RESULTS P Tolstoy 37 degrees RADIOLOGY RESULTS R AXIS 21 degrees RADIOLOGY RESULTS T Tolstoy 13 degrees RADIOLOGY RESULTS Interpretation ECG Sinus bradycardia with sinus arrhythmia Cannot rule out Anterior infarct , age undetermined Abnormal ECG When compared with ECG of 03-Jan-2024 02:23, Vent. rate has decreased by ??41 bpm Confirmed by - EMERGENCY ROOM, PHYSICIAN ([id number]), digital editor CROW MOTTA ([id number]) on 01/05/2024 6:42:05 AM RADIOLOGY RESULTS 01/05/2024 [...] CDT EXAM: US ABDOMEN LIMITED LOCATION: [facility] DATE: 01/03/2024 INDICATION: upper abdominal [...] 01/03/2024 EXAM: US ABDOMEN LIMITED LOCATION: [facility] DATE: 01/03/2024 INDICATION: upper abdominal [...] Levi DO LAB - BLOOD ORDERA BLES [facility] Acute Care Lab [address] Lab (1st floor, no room number) [place] [address], [facility] * HCG QUALitative (blood) (01/03/2024 1:34 AM CDT) Only the most recent of2 resultswithin the time period is included. Pathologist [facility] hCG Serum Qualitative Negative Negative HERMILO 01/03/2024 2:09 AM CDT LABORATORY Comment:This test is for scr eening purposes. Results should be interpreted along with the clinical picture. Confirmation testing is available if warranted by ordering [id number], HCG Quantitative . Blood BLOOD SPECIMEN / Unknown Venipuncture / Unknown 01/03/2024 1:34 AM CDT 01/03/2024 1:42 AM CDT Angie Pratt Levi DO LAB - BLOOD ORDERA BLES LABORATORY [facility] Acute Care Lab [address] Lab (1st floor, no room number) [place] [address], [facility] * (ABNORMAL) Comprehensive metabolic panel (01/03/2024 [...] DO LAB - BLOOD ORDERA BLES LABORATORY [facility] Acute Care Lab [address] Lab (1st floor, no room number) [address] * (ABNORMAL) Alcohol level blood (01/03/2024 1:34 AM CDT) Alcohol ethyl 0.08(H) <=0.01 g/dL 01/03/2024 2:01 AM CDT LABORATORY Blood BLOOD SPECIMEN / Unknown Venipuncture / Unknown 01/03/2024 1:34 AM CDT 01/03/2024 1:42 AM CDT Angie Levi DO LAB - BLOOD ORDERA BLES LABORATORY [facility] Lab [address] Lab (1st floor, no room number) [address] * (ABNORMAL) Glucose by meter (01/03/2024 1:30 AM CDT) GLUCOSE BY METER POCT 123(H) 70 - 99 mg/dL 01/03/2024 1:38 AM CDT RH LABORATORY POC Blood, Capillary BLOOD SPECIMEN / Unknown 01/03/2024 1:30 AM CDT 01/03/2024 1:38 AM CDT Angie Levi DO LAB - BEAKER POCT LABORATORY [facility] Acute Care Lab [address] Lab (1st floor, no room number) [place] [address], [facility] * CTA Head Neck w Contrast (11/28/2023 [...] reconstruction technique CHRIS BOONE MD SYSTEM ID: ??[id number] Narrative 11/28/2023 4:[address] ANGIOGRAM [...] reconstruction technique CHRIS BOONE MD SYSTEM ID: [id number] Matt Clements MD IMG CT ORDERABL ES [...] reconstruction technique CHRIS BOONE MD SYSTEM ID: ??[id number] Narrative 11/28/2023 4:[address] OF [...] reconstruction technique CHRIS BOONE MD SYSTEM ID: [id number] Matt Clements MD IMG CT ORDERABL ES * Extra Red Top Tube (11/28/2023 12:57 PM CDT) Hold Specimen [facility] 11/28/2023 2:16 PM CDT RH LABORATORY Blood STRUCTURE OF LEFT UPPER LIMB / Unknown Venipuncture / Unknown 11/28/2023 12:57 PM CDT 11/28/2023 1:10 PM CDT Matt Clements MD LAB - BLOOD ORD ERABLES Performing Organization Address City/State/[facility] Co de Phone Number [facility] Lab [address] [facility] Lab (1st floor, no room number) [place] [address] * Extra Blue Top Tube (11/28/2023 12:57 PM CDT) Hold Specimen [facility] 11/28/2023 2:16 PM CDT LABORATORY Blood STRUCTURE OF LEFT UPPER LIMB / Unknown Venipuncture / Unknown 11/28/2023 12:57 PM CDT 11/28/2023 1:10 PM CDT Matt Clements MD LAB - BLOOD ORD ERABLES LABORATORY [facility] Acute Care Lab [address] Lab (1st floor, no room number) [place] [phone] * Troponin T, High Sensitivity (11/28/2023 [...] Matt Clements MD LAB - BLOOD ORD SnowshoefoodBLES LABORATORY [facility] Lab [address] Lab (1st floor, no room number) [place] [phone] * TSH with free T4 reflex (11/28/2023 12:57 PM CDT) TSH 0.42 0.30 - 4.20 uIU/mL 11/28/2023 2:42 PM CDT LABORATORY Blood STRUCTURE OF LEFT UPPER LIMB / Unknown Venipuncture / Unknown 11/28/2023 12:57 PM CDT 11/28/2023 1:10 PM CDT Matt Clements MD LAB - BLOOD ORD ERABLES [facility] Lab [address] Lab (1st floor, no room number) [address] * Magnesium (11/28/2023 12:57 PM CDT) Magnesium 2.0 1.7 - 2.3 mg/dL 11/28/2023 2:31 PM CDT LABORATORY Blood STRUCTURE OF LEFT UPPER LIMB / Unknown Venipuncture / Unknown 11/28/2023 12:57 PM CDT 11/28/2023 1:10 PM CDT Matt Clements MD LAB - BLOOD ORD ERABLES Performing Organization Address City/[facility]/ZIP Co de Phone Number [facility] Lab [address] [facility] Lab (1st floor, no room number) [address] * (ABNORMAL) HPV High Risk Types DNA Cervical (03/28/2018 9:20 AM MOSS PICKER) HPV Source SurePath 04/03/2018 7:38 AM MOSS PICKER [facility] HPV 16 DNA Negative NEG^Nega tive 04/03/2018 4:18 PM MOSS PICKER [facility] HPV 18 DNA Negative NEG^Nega tive 04/03/2018 4:18 PM MOSS PICKER [facility] Other HR HPV Positive(A) NEG^Nega tive 04/03/2018 4:18 PM MOSS PICKER [facility] Final Diagnosis This patient's sample is positive for other HR HPV DNA (types 31, 33, 35, 39, 45, 51, 52, 56, 58, 59, 66 or 68), not HPV 16 or HPV 18 DNA. This result requires clinical correlation with concurrent cytology findings. 04/03/2018 4:18 PM MOSS PICKER [facility] Comment: This test was developed and its performance characteristics determined by the [facility], Molecular Diagnostics Laboratory. It has not [...] Specimen Description Cervical Cells 04/03/2018 7:38 AM MOSS PICKER [facility] Comment:[id number] 03/28/2018 9:20 AM MOSS PICKER 03/28/2018 2:56 PM MOSS PICKER Tristen Jiang APRN HEALTHCARE CUSTOMER SERVICE LAB - BLOOD ORDERABLES [facility] [address] [place] [address] * (ABNORMAL) Pap imaged thin layer screen reflex to HPV if ASCUS - recommend age 25 - 29 (03/28/2018 9:09 AM MOSS PICKER) PAP ASC-US(A) JOSE JUAN Manzano Report Patient Name: MADI MOSS MR#: [id number] Specimen #: [id number] Collected: 03/28/2018 Received: 03/29/2018 Reported: 04/02/2018 14:41 [...] Carmine Stevens M.D. Processed and screened at [facility] CLINICAL HISTORY: LMP: 03/05/2018 A previous normal pap Date of Last Pap: 01/01/2015, Papanicolaou Test Limitations: ??Cervical cytology is a screening test with limited sensitivity; regular screening is critical for cancer prevention; Pap tests are primarily effective for the diagnosis/preventi on of squamous cell carcinoma, not adenocarcinomas or other cancers. TESTING LAB LOCATION: [address] ??[address] COLLECTION SITE: Client: ??[facility] Location: JAVON MANZANO (R) Cytologic material (specimen) 03/28/2018 9:09 AM MOSS PICKER 03/29/2018 11:25 AM MOSS PICKER Tristen Jiang APRN HEALTHCARE CUSTOMER SERVICE LAB - OPTIME CLINICAL SPECIMEN COPATH * HIV Antigen Antibody Combo (05/05/2016 9:51 AM MOSS PICKER) HIV Antigen Antibody Combo Nonreactive HIV-1 p24 Ag & HIV-1/HIV-2 Ab Not Detected NR [facility] Blood specimen (specimen) 05/05/2016 9:51 AM MOSS PICKER 05/05/2016 9:56 AM MOSS PICKER Madelaine Mitchell DO LAB - BLOOD ORDER [facility] [address] [place], [place] [address] from Last 3 Months or Most Recently Relevant to Health Maintenance Care Teams Resource Recovery Engineer Relationship Specialty Start Date End Date [facility], [address] [address] PCP - General 11/28/23 Madelaine Mitchell DO counselor manager 07/26/16 Francesco Merritt MD [facility] [facility] [address] [place] [address] Family Medicine - Sports Medicine 12/14/18 Gabe Carl MD [facility] VINICIUS MANNING [address] Assigned PCP 05/09/21
--- OUTSIDE RECORDS SUMMARY | 2024-01-23 08:25 | XMS_ITS | Encounter Summary ---
Author Organization [facility] Address [address] [address] Care Team Providers Care Monotype Keyboard Operator Name Role Phone Rosamaria Jones MD Primary Care Provider [phone] Encounter Details Date Type Department Care Team (Late st Contact Info) Description 01/21/2024 franko Tafoya [phone] Social History Tobacco Use Types Packs/Day Years Used Date Smoking Tobacco: Never Estimated Date of Delivery Comme nts Yes 01/10/2017 Sex and Gender Information Value Date Recorded Sex Assigned at Not on file Gender Identity Not on file Sexual Orientation Not on file documented as of this encounter Progress Notes * FRANKO LOPEZ PROVIDER - 01/22/2024 9:25 AM CDT Franko Addendum Treatment Plan Diagnosis Sinusitis Visit Date January 21, 2024 Addendum Date January 22, 2024 Neda Moss Date of : 88 Provider Queta Morales, Nurse Practitioner Note From Provider Kendrick Mercedes, Thanks for speaking with me today. See the updated plan. Hope you feel better soon, Meredith Treatment Plan I sent a prescription for an antibiotic to [facility] and included a prescription for anantifungal medication in case you develop a yeast infection. I also listed a few self-caretips to helprelieve your symptoms while the antibiotic begins to work. If your symptoms don??improve after taking the full course of your antibiotic, or if you have questions,select Help to Request afollow-up, and we??l discuss next steps. Order(s) amoxicillin-pot clavulanate 596-125 mg tablet Take 1 tablet oral twice a day for 7 days Note: $patientNotes Refills: None fluconazole 150 mg tablet Take 1 tablet by mouth single dose as directed Note: Repeat in 3 days if symptoms persist Refills: None Sent To: [facility] [address] [place] [address] Treatment Plan Self Care Tip Topics Symptom Relief with Ibuprofen Stay Hydrated Reduce Sinus Pressure with a Nasal Steroid [place] How to Use Your Nasal Steroid Warm Packs Steam Therapy Yeast Infection Prescription What to Expect Our goal is to treat the infection and manage symptoms and pain by reducing inflammation. This willallow mucus in the nasal and sinus cavities to drain. By following the recommendations in the Treatmenttab, you should start to feel better in about a week. If you have questions about your treatment plan,select Help to Request a follow-up, and we??l discuss next steps. What to Watch Out For Give us a call immediately if you experience any of the following symptoms: ??? Vision changes ??? Redness and swelling of the eyes or face ??? Increasing congestion ??? Worsening pain ??? A fever higher than 103.0 degrees Fahrenheit My Conditions, Orders, Allergies as of January 22, 2024 Standard condition list Cancer Polycystic Ovarian Syndrome (PCOS) Current orders fluconazole (fluconazole) amoxicillin-pot clavulanate (amoxicillin-pot clavulanate) ( no.144-folic acid) metformin (metformin) Allergies Sulfa (Sulfonamide Antibiotics) [employer] Information [facility] [employer] We are an online clinic open 07/11. If you have any questions or comments about this visit, please call or email [email or web address]. * FAMILY MEDICINEFRANKO PROVIDER - 01/21/2024 12:09 PM CDT Franko Treatment Plan Diagnosis Viral Sinusitis Visit Date January 21, 2024 Neda Moss Date of : 88 Provider Lizy Townsend Nurse Practitioner Note From Provider Kendrick Red-Let?? get you feeling better! Based on your current symptoms, your sinus infection is caused by a virus. This can make you feel pretty miserable, but the good news is it will go away on its own without antibiotics. Make sure to read your treatment plan below for ways to manage symptoms.If your symptoms don?? start to improve as expected, please select Help in your treatment plan to Request a Follow Up and we??l re-evaluate your symptoms. Feel better soon! Lizy LAY OUT FORMER Treatment Plan To get you feeling better, I recommend using specific qnea-rkb-tcaanpb medications to target yoursymptoms, which may change coordinator time as your immune system fights the virus and your body heals. I alsosent a prescription for a nasal steroid spray to [pharmacy name] to help reduce sinus pain and press ure.The nasal steroid spray is also available over the counter, so you may want to check with your pharmacyto see which option costs less. If your symptoms are not starting to improve in about a week, or if youhave questions, select Help to Request a follow-up, and we??l discuss nextsteps. Order(s) None Treatment Plan Self Care Tip Topics Symptom Relief with Ibuprofen Stay Hydrated What to Expect Let?? get you feeling better by managing your symptoms while your body fights the virus. We??lfocuson reducing inflammation, which will help relieve sinus pain and pressure, and thinning anddrainingthe mucus your body is making to fight the infection. Keep in mind that it?? normal for thecolor ofyour mucus to change while your immune system is fighting the virus. By following the recommendations in the Treatment tab, your symptoms should start to improve in about aweek. If you have questionsabout your treatment plan, select Help to Request a follow-up,and we??l discuss next steps. What to Watch Out For Give us a call immediately if you experience: ??? Vision changes ??? Redness occurring in the face ??? Worsening pain ??? Fever higher than 103.0 degrees Fahrenheit My Conditions, Orders, Allergies as of January 21, 2024 Standard condition list Cancer Polycystic Ovarian Syndrome (PCOS) Current orders fluconazole (fluconazole) ( no.144-folic acid) metformin (metformin) Allergies Sulfa (Sulfonamide Antibiotics) [employer] Information [employer] We are an online clinic open 07/11. If you have any questions or comments about this visit, please call or email [email or web address]. documented in this encounter Plan of Treatment Not on file documented as of this encounter Visit Diagnoses Diagnosis Acute sinusitis, unspecified documented in this encounter Care Teams Monotype Keyboard Operator Relationship Specialty Start Date End Date Rosamaria Jones MD [address] [id number] PCP - General 11/10/15 documented as of this encounter
--- OUTSIDE RECORDS SUMMARY | 2024-01-23 08:25 | XMS_ITS | Encounter Summary ---
Author Organization [facility] Address [address] [place] [address] Care Team Providers Care Concrete Crusher Loader Operator Name Role Phone Stephen Madelaine Garcia DO Unavailable [phone] Rosamaria Jones MD Primary Care Provider [facility]Francesco MD Unavailable [phone] Elaina Jiang APRN [facility] Unavailable [phone] Rosamaria Jones MD Unavailable Gabe Carl MD Unavailable [phone] Danielle Alcantar MD Unavailable [phone] [facility] Primary Care Provider Encounter Details Date [...] COVID-19? No / Unsure 03/31/2021 6:25 AM LOADING UNIT TOOL SETTER documented as of this encounter Plan of Treatment Not on file documented as of this encounter Visit Diagnoses Not on filedocumented in this encounter Additional Health Concerns Infection Onset Date Last Indicated Resolved Time Rule Out COVID-19 03/31/2021 03/31/2021 03/31/2021 7:10 AM LOADING UNIT TOOL SETTER Rule Out COVID-19 09/15/2022 09/15/2022 09/15/2022 9:15 AM CDT Assessment Noted Time PHQ-9 Depression Total Score: 10 019 7:03 AM CDT documented as of this encounter Care Teams Concrete Crusher Loader Operator Relationship Specialty Start Date End Date Rosamaria Jones MD [address] [id number] PCP - General Internal Medicine 10/06/18 11/27/[address] [address] PCP - General 11/28/23 Madelaine Mitchell DO heel attacher 07/26/16 Francesco Merritt MD [address] [place] [address] Family Medicine - Sports Medicine 12/14/18 Elaina Jiang APRN CNP [address] [place] [address] Assigned PCP 10/27/19 04/03/21 Rosamaria Jones MD [address] [address] Assigned PCP 04/04/21 05/08/21 Gabe Carl MD [address] [place] [address] VINICIUS MANNING [address] Assigned PCP 05/09/21 Danielle Alcantar MD [address] [place] [address] Assigned Musculoskeletal Provider 07/18/21 02/03/23 documented as of this encounter
--- OUTSIDE RECORDS SUMMARY | 2024-01-23 08:25 | XMS_ITS | Encounter Summary ---
Author Organization [place] Address [address] [place] [address]. [place] [address] Care Team Providers Care Banana Handler Name Role Phone Madelaine Mitchell DO Unavailable [phone] Rosamaria Jones MD Primary Care Provider [phone] Francesco Merritt MD Unavailable Gabe Carl MD Unavailable [phone] Danielle Alcantar MD Unavailable [phone] [facility] Primary Care Provider Encounter Details Date Type Department Care Team (Late st Contact Info) Description 01/08/2023 MyC Medical Advice [facility] [address] [place] [address] Francesco Merritt MD [address] [place] [address] [address] [place], [place] [address] Social History Tobacco Use Types Packs/Day Years [...] documented as of this encounter Care Teams Banana Handler Relationship Specialty Start Date End Date Rosamaria Joens MD [address] [facility] [address] [place] [address] PCP - General Internal Medicine 10/06/18 11/27/[address] [address] PCP - General 11/28/23 Madelaine Mitchell DO room service clerk 07/26/16 Francesco Merritt MD [address] [place] [address] Family Medicine - Sports Medicine 12/14/18 Gabe Carl MD [address] [place] [address] [place] [address] Assigned PCP 05/09/21 Danielle Alcantar MD [address] [place] [address] Assigned Musculoskeletal Provider 07/18/21 02/03/23 documented as of this encounter
--- OUTSIDE RECORDS SUMMARY | 2024-01-23 08:25 | XMS_ITS | Encounter Summary ---
[facility] Address [address], [place] [address] Care Team Providers Care Sewer Pipe Press Operator Name Role Phone Rosamaria Jones MD Primary Care Provider [phone] Encounter Details Date Type Department Care Team (Late st Contact Info) Description 10/24/2023 franko Tafoya [phone] Social History Tobacco Use Types Packs/Day Years [...] of : 88 Provider Kei Talley, Physician Welding Equipment Repairer Supervisor Note From Provider Kendrick Red! I have now sent it to the correct pharmacy that you requested. My apologies! Take care!Kei Hanna PA-C Treatment Plan Let?? try a topical antibiotic for your bacterial vaginosis. I sent a prescription to [facility]. Make sure to take all of the [...] 5 days Note: Refills: None Sent To: [facility] [address] [place] [address] [address] [place], [place] [id number] Treatment Plan Self Care Tip Topics Avoid [...] acid) metformin (metformin) Allergies Sulfa (Sulfonamide Antibiotics) [facility] Information [facility] by [employer] We are an online clinic open 07/11. If you have any questions or comments about this visit, please call or email [email or web address] * FAMILY MEDICINEFRANKO PROVIDER - 10/25/2023 9:36 AM CDT Franko Addendum Treatment Plan Diagnosis Bacterial Vaginosis (BV) Visit Date October 24, 2023 Addendum Date October 25, 2023 Neda Isa Date of : 88 Provider Kei Talley, Physician Welding Equipment Repairer Supervisor Note From Provider Kendrick Red! I have sent the topical antibiotic to your pharmacy. Take care!Best, ARIANA Choudhury Treatment Plan Let?? try a topical antibiotic for your bacterial vaginosis. I sent a prescription to [facility]. Make sure to take all of the [...] 5 days Note: Refills: None Sent To: [facility] [address] [place] [address] DR [place], VINICIUS [phone] Treatment Plan Self Care Tip Topics Avoid [...] (metformin) Allergies Sulfa (Sulfonamide Antibiotics) [facility] Information [facility] [employer] We are an online clinic open 07/11. If you have any questions or comments about this visit, please call or email [email or web address] * FAMILY MEDICINE, FRANKO PROVIDER - 10/24/2023 [...] bacterial vaginosis. I sent a prescription to [facility]. Make sure to take all of the [...] if symptoms persist Refills: None Sent To: [facility] [address] [facility] [address] [place], [place] [phone] Treatment Plan Self Care Tip Topics Avoid [...] acid) metformin (metformin) Allergies Sulfa (Sulfonamide Antibiotics) [facility] Information [facility] [employer] We are an online clinic open 07/11. If you have any questions or comments about this visit, please call or email [email or web address] documented in this encounter Plan of Treatment Not on file documented as of this encounter Visit Diagnoses Diagnosis Acute vaginitis Vaginitis and vulvovaginitis, unspecified documented in this encounter Care Teams Sewer Pipe Press Operator Relationship Specialty Start Date End Date Rosamaria Jones MD [address]f [address] [facility] [address] [place] [address] PCP - General 11/10/15 documented as of this encounter
--- OUTSIDE RECORDS SUMMARY | 2024-01-23 08:25 | XMS_ITS | Encounter Summary ---
Author Organization [place] Address [address] [place] [address] Care Team Providers Care Linen Room Attendant Name Role Phone Madelaine Mitchell DO Unavailable [phone] Rosamaria Jones MD Primary Care Provider [phone] Francesco Merritt MD Unavailable [phone] Elaina Jiang APRN [facility] Unavailable [phone] Rosamaria Jones MD Unavailable Gabe Carl MD Unavailable [phone] Danielle Alcantar MD Unavailable [phone] [facility] Primary Care Provider Encounter Details Date Type Department Care Team (Late st Contact Info) Description 03/14/2021 [facility] Medical Advice [facility] [address] [place] [phone] Madelaine Mitchell DO [address] [facility] [address] [place], [place] [address] Anovulation (Primary Dx) Social History Tobacco Use [...] the my chart message. Clif Catalan RN EXTINGUISHER TESTER documented in this encounter Plan of Treatment Not on file documented as of this encounter Visit Diagnoses Diagnosis Anovulation- Primary Female infertility associated with anovulation documented in this encounter Additional Health Concerns Infection Onset Date Last Indicated Resolved Time Rule Out COVID-19 03/31/2021 03/31/2021 03/31/2021 7:10 AM FIRE EXTINGUISHER TESTER Rule Out COVID-19 09/15/2022 09/15/2022 09/15/2022 9:15 AM CDT Assessment Noted Time PHQ-9 Depression Total Score: 10 019 7:03 AM CDT documented as of this encounter Care Teams Linen Room Attendant Relationship Specialty Start Date End Date Rosamaria Jones MD [address] [facility] [address] [place], [place] [address] PCP - General Internal Medicine 10/06/18 11/27/[address] [address] PCP - General 11/28/23 Madelaine Mitchell DO tire center manager 07/26/16 Francesco Merritt MD [facility] [address] [place] [address] Family Medicine - Sports Medicine 12/14/18 Elaina Jiang APRN PHP MAGENTO DEVELOPER [address] [place] [address] Assigned PCP 10/27/19 04/03/21 Rosamaria Jones MD [address] [place] [address] Assigned PCP 04/04/21 05/08/21 Gabe Carl MD [address] [place] [address] V[place]ICI[place] MANNING [address] Assigned PCP 05/09/21 Danielle Alcantar MD [address] [place] [address] Assigned Musculoskeletal Provider 07/18/21 02/03/23 documented as of this encounter
--- OUTSIDE RECORDS SUMMARY | 2024-01-23 08:25 | XMS_ITS | Encounter Summary ---
Author Organization [facility] Address [address] [place] [address]. [place] [address] Care Team Providers Care Green Feed Attendant Name Role Phone Madelaine Mitchell DO Unavailable [phone] Rosamaria Jones MD Primary Care Provider [phone] Francesco Merritt MD Unavailable Gabe Carl MD Unavailable [phone] Danielle Alcantar MD Unavailable [phone] [facility] Primary Care Provider Encounter Details Date Type Department Care Team (Late st Contact Info) Description 08/27/2021 MyC Medical Advice [facility] [address] 5[address] [place] [address] Danielle Wright, PT [address] [address] Social History Tobacco Use Types Packs/Day Years [...] PHQ-9 Depression Total Score: 022 9:03 AM CORE MAN documented as of this encounter Care Teams Green Feed Attendant Relationship Specialty Start Date End Date Rosamaria Jones MD [address] [facility] 200 [place] [address] PCP - General Internal Medicine 10/06/18 11/27/[address] [address] PCP - General 11/28/23 Madelaine Mitchell DO electrical engineering manager 07/26/16 Francesco Merritt MD [address] [place] [address] Family Medicine - Sports Medicine 12/14/18 Gabe Carl MD [address] [place] [address] [place] [address] Assigned PCP 05/09/21 Danielle Alcantar MD [address] [place] [address] Assigned Musculoskeletal Provider 07/18/21 02/03/23 documented as of this encounter
--- OUTSIDE RECORDS SUMMARY | 2024-01-23 08:25 | XMS_ITS | Encounter Summary ---
Author Organization [place] Address [address] [place] [address] Care Team Providers Care Quality Compliance Consultant Name Role Phone Rosamaria Jones MD Primary Care Provider Madelaine Mitchell DO Unavailable [phone] Elaina Jiang APRN ASSISTANT READING TEACHER Unavailable [phone] Ref-Primary, Physician Primary Care Provider Rosamaria Jones MD Primary Care Provider Francesco Merritt MD Unavailable [phone] Rosamaria Jones MD Unavailable Loyda Farmer MD Unavailable Elaina Jiang APRN ASSISTANT READING TEACHER Unavailable [phone] Rosamaria Jones MD Unavailable Gabe Carl MD Unavailable [phone] Danielle Alcantar MD Unavailable [phone] [facility] Primary Care Provider Encounter Details Date Type Department Care Team (Late st Contact Info) Description 07/15/2018 [facility] [id number] [place] [phone] Madelaine Mitchell DO [address] [facility] 100 [place] [address] PCOS (polycystic ovarian syndrome) (Primary Dx) Social [...] Out COVID-19 03/31/2021 03/31/2021 03/31/2021 7:10 AM STRIPPER SOFT PLASTIC Rule Out COVID-19 09/15/2022 09/15/2022 09/15/2022 9:15 AM CDT Assessment Noted Time PHQ-9 Depression Total Score: 0 02/01/20 17 1:00 PM CDT documented as of this encounter Care Teams Quality Compliance Consultant Relationship Specialty Start Date End Date Rosamaria Jones MD [address] [place] [address] PCP - General Internal Medicine 09/12/14 07/24/18 No Ref-Primary, Physician PCP - General 07/25/18 10/05/18 Rosamaria Jones MD [address] [place] [address] PCP - General Internal Medicine 10/06/18 11/27/[address] [address] PCP - General 11/28/23 Madelaine Mitchell DO [address] [place] [address] project designer 07/26/16 Elaina Jiang APRN ASSISTANT READING TEACHER [address] [place], [place] [address] Assigned PCP 04/08/18 03/30/19 Francesco Merritt MD [address] [place] [address] Family Medicine - Sports Medicine 12/14/18 Rosamaria Jones MD [address] [address] Assigned PCP 03/31/19 09/28/19 Loyda Farmer MD [address] [place] [id number] Assigned PCP 09/29/19 10/26/19 Elaian Jiang APRN ASSISTANT READING TEACHER [address] [place] [address] Assigned PCP 10/27/19 04/03/21 Rosamaria Jones MD [address] [address] Assigned PCP 04/04/21 05/08/21 Gabe Carl MD [address] [facility] [place]ANN[place] [address] Assigned PCP 05/09/21 Danielle Alcantar MD [address] [place] [address] Assigned Musculoskeletal Provider 07/18/21 02/03/23 documented as of this encounter
--- OUTSIDE RECORDS SUMMARY | 2024-01-23 08:25 | XMS_ITS | Clinical Summary ---
Author Organization [facility] Address [address] [place] [address] Care Team Providers Care Cheese Maker Name Role Phone Rosamaria Jones MD Primary Care Provider [phone] Source Comments You are receiving this document as you are listed as the primary care provider,follow-up provider, or the patient has been referred to you for consultation.This is in compliance with the Medicare andSelect [facility]id EHR Incentive Program,which states Providers who transition their patient to another setting of careor provider of care or refers their patient to another provider of care shouldprovide summary care record for each transition of care or referral. [facility] Allergies Active Allergy Reactions Criticality Noted Date [...] Encounters Date Type Department Care Team Description 01/21/2024 monse Tafoya [phone] 10/24/2023 monse Tafoya [phone] from Last 3 Months Social History Tobacco Use Types Packs/Day Years Used Date Smoking Tobacco: Never Estimated Date of Delivery Comme nts Yes 01/10/2017 Sex and Gender Information Value Date Recorded Sex Assigned at Not on file Gender Identity Not on file Sexual Orientation Not on file Last Filed Vital Signs Vital Sign Reading Time Taken Comments Blood Pressure 123/75 06/15/2016 11:56 AM PAYER SPECIALIST Pulse 104 06/15/2016 11:56 AM PAYER SPECIALIST Temperature 36.7 ??C (98.1 ??F) 06/15/2016 11:[address] Respiratory Rate 20 06/15/2016 11:56 AM PAYER SPECIALIST Oxygen Saturation 98% 06/15/2016 11:56 AM PAYER SPECIALIST Inhaled Oxygen Concentration - - Weight 86.2 [...] on patient's age to complete this topic Infant RSV Aged Out No longer eligi ble based on patient's age to complete this topic MCV4 Aged Out No longer eligi ble based on patient's age to complete this topic Pneumococcal Aged Out No longer eligi ble based on patient's age to complete this topic Care Teams Cheese Maker Relationship Specialty Start Date End Date Rosamaria Jones MD [address] [facility] 200 [place] [address] PCP - General 11/10/15
--- OUTSIDE RECORDS SUMMARY | 2024-01-23 08:25 | XMS_ITS | Encounter Summary ---
Author Organization [facility] Address [address] [place] [address] Care Team Providers Care Sole Trimmer Name Role Phone Madelaine Mitchell DO Unavailable Rosamaria Jones MD Primary Care Provider Francesco Merritt MD Unavailable Gabe Carl MD Unavailable [phone] Danielle Alcantar MD Unavailable [facility] Primary Care Provider Reason for Referral * Infertility Artificial Insemination (Routine: Next available opening) - Closed Specialty Diagnoses / Procedures Referred By Contjoaquin t Referred To Contact Diagn[place] [address] [place] [address] [facility] [address] [place] [phone] Referral ID Status Reason Start Date Expiration Date Visits Re quested Visits Authorized [id number] Closed 06/07/2021 06/07/2022 1 1 Question Answer [...] or coverage questions. [facility]: [phone] [facility] [phone] [facility]. ([facility]) [phone] Other (external) - Use Comments Please call to schedule your appointment CTOR INFORMATION SECURITY Encounter Details Date Type Department Care Team (Late st Contact Info) Description 06/03/2021 MyC Medical Advice [facility] [address] [place] [address] Madelaine Mitchell DO [address] [place] [address] Anovulation (Primary Dx) Social History [...] Depression Total Score: 10 022 9:03 AM DIRECTOR INFORMATION SECURITY documented as of this encounter Care Teams Sole Trimmer Relationship Specialty Start Date End Date Rosamaria Jones MD [address] [place], [place] [address] PCP - General Internal Medicine 10/06/18 11/27/[address] [phone] PCP - General 11/28/23 Madelaine Mitchell DO auto transmission specialist 07/26/16 Francesco Merritt MD [address] [place] [address] Family Medicine - Sports Medicine 12/14/18 [place] [address] [place] [address] [place] [address] Assigned PCP 05/09/21 Danielle Alcantar MD [address] [place] [address] Assigned Musculoskeletal Provider 07/18/21 02/03/23 documented as of this encounter
--- OUTSIDE RECORDS SUMMARY | 2024-01-23 08:25 | XMS_ITS | Encounter Summary ---
Author Organization [facility] Address [address] [place] [address] Care Team Providers Care Catia Designer Name Role Phone Rosamaria Jones MD Primary Care Provider [phone] Madelaine Mitchell DO Unavailable [phone] Jonas Cullen MD Unavailable [phone] Elaina Jiang APRN TREASURER Unavailable [phone] Elaina Jiang APRN TREASURER Unavailable [phone] No Ref-Primary, Physician Primary Care Provider Rosamaria Jones MD Primary Care Provider Francesco Merritt MD Unavailable [phone] Rosamaria Jones MD Unavailable Loyda Farmer MD Unavailable Elaina Jiang APRN TREASURER Unavailable [phone] Rosamaria Jones MD Unavailable Gabe Carl MD Unavailable [phone] Danielle Alcantar MD Unavailable [facility] Primary Care Provider Reason for Visit * Reason Onset Date Comments Results 10/07/2016 hgb Encounter Details Date Type Department Care Team (Late st Contact Info) Description 10/07/2016 MyC Medical Advice [facility] [address] [place] [phone] Madelaine Mitchell DO [address] [place] [address] Results (hgb) Social History Tobacco Use Types [...] Out COVID-19 03/31/2021 03/31/2021 03/31/2021 7:10 AM DEPUTY CHIEF COUNSEL Rule Out COVID-19 09/15/2022 09/15/2022 09/15/2022 9:15 AM CDT documented as of this encounter Care Teams Catia Designer Relationship Specialty Start Date End Date Rosamaria Jones MD [address] [place] [address] PCP - General Internal Medicine 09/12/14 07/24/18 [place] [address] [place] [address] PCP - Assigned PCP 02/04/18 04/07/18 Elaina Jiang APRN CNP [address] [place] [address] PCP - Assigned PCP 04/08/18 06/19/18 No Ref-Primary, Physician PCP - General 07/25/18 10/05/18 Rosamaria Jones MD [address] [address] PCP - General Internal Medicine 10/06/18 11/27/[address] [address] PCP - General 11/28/23 Madelaine Mitchell DO [address] [place] [address] refinery operator assistant 07/26/16 Elaina Jiang APRN TREASURER [address] [place] [place] [address] Assigned PCP 04/08/18 03/30/19 Francesco Merritt MD [address] [place] [address] Family Medicine - Sports Medicine 12/14/18 Rosamaria Jones MD [address] [address] Assigned PCP 03/31/19 09/28/19 Loyda Farmer MD [address] [place], [place] [address] Assigned PCP 09/29/19 10/26/19 Elaina Jiang APRN TREASURER [address] [place] [address] Assigned PCP 10/27/19 04/03/21 Rosamaria Jones MD [address] [facility] 200 [place] [address] Assigned PCP 04/04/21 05/08/21 Gabe Carl MD [address] [facility] [place]IUS MANN[place] [address] Assigned PCP 05/09/21 Danielle Alcantar MD [address] [place] [address] Assigned Musculoskeletal Provider 07/18/21 02/03/23 documented as of this encounter
--- OUTSIDE RECORDS SUMMARY | 2024-01-23 08:25 | XMS_ITS | Encounter Summary ---
Author Organization [facility] Address [address] [place] [address] Care Team Providers Care Computer Systems Auditor Name Role Phone Madelaine Mitchell DO Unavailable [phone] Rosamaria Jones MD Primary Care Provider Francesco Merritt MD Unavailable Loyda Farmer MD Unavailable CreElaina morales APRN [facility] Unavailable [phone] Rosamaria Jones MD Unavailable Gabe Carl MD Unavailable [phone] Danielle Alcantar MD Unavailable [phone] [facility] Primary Care Provider Reason for Visit * Reason Comments Medication Refill Encounter Details Date Type Department Care Team (Late st Contact Info) Description 10/05/2019 Refill [facility] [address] [place] [address] Madelaine Mitchell DO [address] [facility] 100 [place] [address] Medication Refill Social History Tobacco Use Types [...] RN - 10/22/2019 10:31 AM CDT Sent [employer] message to schedule appt. Queta Morales R.N. [...] Out COVID-19 03/31/2021 03/31/2021 03/31/2021 7:10 AM SURGICAL INSTRUMENT TECHNICIAN Rule Out COVID-19 09/15/2022 09/15/2022 09/15/2022 9:15 AM CDT Assessment Noted Time PHQ-9 Depression Total Score: 10 019 7:03 AM CDT documented as of this encounter Care Teams Computer Systems Auditor Relationship Specialty Start Date End Date Rosamaria Jones MD [address] [facility] 200 [place] [address] PCP - General Internal Medicine 10/06/18 11/27/23 [facility], [address] [address] PCP - General 11/28/23 Madelaine Mitchell DO certified medical transcriptionist 07/26/16 Francesco Merritt MD [address] [place] [address] Family Medicine - Sports Medicine 12/14/18 Loyda Farmer MD [address] [place], [place] [address] Assigned PCP 09/29/19 10/26/19 Elaina Jiang APRN [facility] [address] [place], [place] [address] Assigned PCP 10/27/19 04/03/21 Rosamaria Jones MD [address] [facility] 200 [place], [place] [address] Assigned PCP 04/04/21 05/08/21 Gabe Carl MD [address] [facility] [place] [address] Assigned PCP 05/09/21 Danielle Alcantar MD [address] [place], [place] [address] Assigned Musculoskeletal Provider 07/18/21 02/03/23 documented as of this encounter
--- OUTSIDE RECORDS SUMMARY | 2024-01-23 08:25 | XMS_ITS | Encounter Summary ---
Author Organization [facility] Address [address] [place] [address] Care Team Providers Care Rock Singer Name Role Phone Stephen Madelaine Garcia DO Unavailable Rosamaria Jones MD Primary Care Provider [phone] [facility] System[facility] MD Unavailable Rosamaria Jones MD Unavailable SerumLoyda MD Unavailable CrekristanElaina APRN POLITICAL THEORY PROFESSOR Unavailable [phone] Rosamaria Jones MD Unavailable MeseretGabe jordan MD Unavailable [phone] Danielle Alcantar MD Unavailable [facility] Primary Care Provider Encounter Details Date Type Department Care Team (Late st Contact Info) Description 06/28/2019 Psychiatric Only [facility] [place] [address] [facility], [address] [place] [address] Porsha Vargas [...] COLP CERVIX/UPPER VAGINA Routine 04/25/2018 12:00 AM LICENSE EXAMINER documented in this encounter Results * COLP CERVIX/UPPER VAGINA (04/25/2018 12:00 AM LICENSE EXAMINER) Patient Reported PROCEDURES documented in this encounter Visit Diagnoses Not on filedocumented in this encounter Additional Health Concerns Infection Onset Date Last Indicated Resolved Time Rule Out COVID-19 03/31/2021 03/31/2021 03/31/2021 7:10 AM LICENSE EXAMINER Rule Out COVID-19 09/15/2022 09/15/2022 09/15/2022 9:15 AM CDT Assessment Noted Time PHQ-9 Depression Total Score: 10 019 7:03 AM CDT documented as of this encounter Care Teams Rock Singer Relationship Specialty Start Date End Date Rosamaria Jones MD [address] [employer] [address] [place] [address] PCP - General Internal Medicine 10/06/18 11/27/[address] [address] PCP - General 11/28/23 Madelaine Mitchell DO boarding room fixer 07/26/16 Francesco Merritt MD [facility] [address] [address] Family Medicine - Sports Medicine 12/14/18 Rosamaria Jones MD [address] [place] [address] Assigned PCP 03/31/19 09/28/19 Loyda Farmer MD [address] [place] [address] Assigned PCP 09/29/19 10/26/19 Elaina Jiang APRN POLITICAL THEORY PROFESSOR [address] [place], [place] [address] Assigned PCP 10/27/19 04/03/21 Rosamaria Jones MD [address] [facility] 200 [place], [place] [address] Assigned PCP 04/04/21 05/08/21 Gabe Carl MD [address] [facility] VINICIUS MANN[place] [address] Assigned PCP 05/09/21 Danielle Alcantar MD [address] [place], [place] [address] Assigned Musculoskeletal Provider 07/18/21 02/03/23 documented as of this encounter
--- OUTSIDE RECORDS SUMMARY | 2024-01-23 08:25 | XMS_ITS | Encounter Summary ---
Author Organization [place] Address [address] [place] [address] Care Team Providers Care Security Controls Assessor Name Role Phone Stephen Madelaine Garcia DO Unavailable [phone] Rosamaria Jones MD Primary Care Provider [phone] [facility] Un[facility] Rosamaria Jones MD Unavailable SerumLoyda MD Unavailable CrekristanElaina APRN WATER SOFTENER SERVICE SUPERVISOR Unavailable [phone] Rosamaria Jones MD Unavailable MeseretGabe jordan MD Unavailable [phone] Danielle Alcantar MD Unavailable [phone] [facility] Primary Care Provider Encounter Details Date Type Department Care Team (Late st Contact Info) Description 06/28/2019 [facility] Only [facility] [place] [address] [facility], [address] [place] [address] Porsha Vargas [...] COLP CERVIX/UPPER VAGINA Routine 04/25/2019 12:00 AM MOBILE PRODUCT MANAGER documented in this encounter Results * COLP CERVIX/UPPER VAGINA (04/25/2019 12:00 AM MOBILE PRODUCT MANAGER) Patient Reported PROCEDURES documented in this encounter Visit Diagnoses Not on filedocumented in this encounter Additional Health Concerns Infection Onset Date Last Indicated Resolved Time Rule Out COVID-19 03/31/2021 03/31/2021 03/31/2021 7:10 AM MOBILE PRODUCT MANAGER Rule Out COVID-19 09/15/2022 09/15/2022 09/15/2022 9:15 AM CDT Assessment Noted Time PHQ-9 Depression Total Score: 10 019 7:03 AM CDT documented as of this encounter Care Teams Security Controls Assessor Relationship Specialty Start Date End Date Rosamaria Jones MD [address] [place] [address] PCP - General Internal Medicine 10/06/18 11/27/[address] [address] PCP - General 11/28/23 Madelaine Mitchell DO reverberatory furnace supervisor 07/26/16 Francesco Merritt MD [facility] [address] 218834 Family Medicine - Sports Medicine 12/14/18 Rosamaria Jones MD [address] [place] [address] Assigned PCP 03/31/19 09/28/19 Loyda Farmer MD [address]75 [place] [address] Assigned PCP 09/29/19 10/26/19 Elaina Jiang APRN WATER SOFTENER SERVICE SUPERVISOR [address] [place], [place] [address] Assigned PCP 10/27/19 04/03/21 Rosamaria Jones MD [address] [facility] 200 [place], [place] 07[address]87 Assigned PCP 04/04/21 05/08/21 Gabe Carl MD [address] [facility] [place] [address] Assigned PCP 05/09/21 Danielle Alcantar MD 9 [place], [place] 633055 Assigned Musculoskeletal Provider 07/18/21 02/03/23 documented as of this encounter
--- OUTSIDE RECORDS SUMMARY | 2024-01-23 08:25 | XMS_ITS | Encounter Summary ---
Author Organization [place] Address [address] [place] [address] Care Team Providers Care Communications Advisor Name Role Phone Madelaine Mitchell DO Unavailable [phone] Rosamaria Jones MD Primary Care Provider Francesco Merritt MD Unavailable Gabe Carl MD Unavailable [phone] Danielle Alcantar MD Unavailable [phone] [facility] Primary Care Provider Encounter Details Date Type Department Care Team (Late st Contact Info) Description 07/11/2021 MyC Medical Advice [facility] Women's [address] [place] [address] Madelaine Mitchell DO [address] [place] [address] Social History Tobacco Use Types Packs/Day Years [...] Depression Total Score: 10 022 9:03 AM SUPERVISOR COREMAKER documented as of this encounter Care Teams Communications Advisor Relationship Specialty Start Date End Date Rosamaria Jones MD [address] [facility] 200 [place] [address] PCP - General Internal Medicine 10/06/18 11/27/[address] [address] PCP - General 11/28/23 Madelaine Mitchell DO research center director 07/26/16 Francesco Merritt MD [address] [place] [address] Family Medicine - Sports Medicine 12/14/18 Gabe Carl MD [address] [place] [address] [place] [address] Assigned PCP 05/09/21 Danielle Alcantar MD 909 [place] [address] Assigned Musculoskeletal Provider 07/18/21 02/03/23 documented as of this encounter
--- OUTSIDE RECORDS SUMMARY | 2024-01-23 08:25 | XMS_ITS | Encounter Summary ---
Author Organization [place] Address [address] [place] [address] Care Team Providers Care Credit Control Officer Name Role Phone Stephen Madelaine Garcia DO Unavailable [phone] Rosamaria Jones MD Primary Care Provider [phone] Francesco Merritt MD Unavailable [phone] SerumLoyda MD Unavailable [phone] CreElaina morales APRN [facility] Unavailable [phone] Rosamaria Jones MD Unavailable Gabe Carl MD Unavailable [phone] Danielle Alcantar MD Unavailable [phone] [facility] Primary Care Provider Encounter Details Date Type Department Care Team (Late st Contact Info) Description 10/22/2019 MyC Medical Advice [facility] Women's [facility] [address] [facility] [address] [place] [address] Queta Lisa, RN Social History [...] Out COVID-19 03/31/2021 03/31/2021 03/31/2021 7:10 AM TAPPET ADJUSTER Rule Out COVID-19 09/15/2022 09/15/2022 09/15/2022 9:15 AM CDT Assessment Noted Time PHQ-9 Depression Total Score: 10 019 7:03 AM CDT documented as of this encounter Care Teams Credit Control Officer Relationship Specialty Start Date End Date Rosamaria Jones MD [address] [place], [place] [address] PCP - General Internal Medicine 10/06/18 11/27/[address] [address] PCP - General 11/28/23 Madelaine Mitchell DO salesperson furs 07/26/16 Francesco Merritt MD [facility] [id number] [place] [address] Family Medicine - Sports Medicine 12/14/18 Loyda Farmer MD [address] [place], [place] 223[address] Assigned PCP 09/29/19 10/26/19 Elaina Jiang APRN CNP [address] [place] [address] Assigned PCP 10/27/19 04/03/21 Rosamaria Jones MD [address] 200 [place] [address] Assigned PCP 04/04/21 05/08/21 Gabe Carl MD [address] [facility] [place] [address] Assigned PCP 05/09/21 Danielle Alcantar MD [address] [place] [address] Assigned Musculoskeletal Provider 07/18/21 02/03/23 documented as of this encounter
--- OUTSIDE RECORDS SUMMARY | 2024-01-23 08:25 | XMS_ITS | Encounter Summary ---
Author Organization [place] Address [address] [place] [address] Care Team Providers Care Mold Checker Name Role Phone Madelaine Mitchell DO Unavailable [phone] Rosamaria Jones MD Primary Care Provider Francesco Merritt MD Unavailable Elaina Jiang APRN [facility] Unavailable [phone] Rosamaria Jones MD Unavailable Gabe Carl MD Unavailable [phone] Danielle Alcantar MD Unavailable [facility] Primary Care Provider Encounter Details Date Type Department Care Team (Late st Contact Info) Description 07/10/2020 [facility] Medical Advice [facility] Women's [facility] [address] [place] [phone] Madelaine Mitchell DO [address] [facility] [address] [place], [place] [address] Social History Tobacco Use Types Packs/Day Years [...] Out COVID-19 03/31/2021 03/31/2021 03/31/2021 7:10 AM ANESTHESIOLOGIST/PHYSICIAN Rule Out COVID-19 09/15/2022 09/15/2022 09/15/2022 9:15 AM CDT Assessment Noted Time PHQ-9 Depression Total Score: 10 019 7:03 AM CDT documented as of this encounter Care Teams Mold Checker Relationship Specialty Start Date End Date Rosamaria Jones MD [address] [place] [address] PCP - General Internal Medicine 10/06/18 11/27/[address] [address] PCP - General 11/28/23 Madelaine Mitchell DO graves registration specialist 07/26/16 Francesco Merritt MD [facility] [address] [address] Family Medicine - Sports Medicine 12/14/18 Elaina Jiang APRN CNP [address] [place], [place] 331737 Assigned PCP 10/27/19 04/03/21 Rosamaria Jones MD [address] [place] [address] Assigned PCP 04/04/21 05/08/21 Gabe Carl MD [address] [facility] [place] [address] Assigned PCP 05/09/21 Danielle Alcantar MD 9 [place], [place] 8[address] Assigned Musculoskeletal Provider 07/18/21 02/03/23 documented as of this encounter
--- OUTSIDE RECORDS SUMMARY | 2024-01-23 08:25 | XMS_ITS | Encounter Summary ---
Author Organization [place] Address [address] [place] [address] Care Team Providers Care Waistband Setter Name Role Phone Madelaine Mitchell DO Unavailable Rosamaria Jones MD Primary Care Provider Francesco Merritt MD Unavailable Loyda Farmer MD Unavailable CreElaina morales APRN [facility] Unavailable [phone] Rosamaria Jones MD Unavailable Gabe Carl MD Unavailable [phone] Danielle Alcantar MD Unavailable [facility] Primary Care Provider Reason for Visit * Reason Comments Medication Refill Encounter Details Date Type Department Care Team (Late st Contact Info) Description 10/13/2019 Refill [facility] [address] [place] [address] Madelaine Mitchell DO [address] [facility] 100 [place] [address] Medication Refill Social History Tobacco Use Types [...] Out COVID-19 03/31/2021 03/31/2021 03/31/2021 7:10 AM WELL LOGGING CAPTAIN Rule Out COVID-19 09/15/2022 09/15/2022 09/15/2022 9:15 AM CDT Assessment Noted Time PHQ-9 Depression Total Score: 10 019 7:03 AM CDT documented as of this encounter Care Teams Waistband Setter Relationship Specialty Start Date End Date Rosamaria Jones MD [address] [facility] 200 [place] [address] PCP - General Internal Medicine 10/06/18 11/27/[address] [address] PCP - General 11/28/23 Madelaine Mitchell DO malt specifications control assistant 07/26/16 Fracnesco Merritt MD [address] [place] [address] Family Medicine - Sports Medicine 12/14/18 Loyda Farmer MD [address]75 [place] [address] Assigned PCP 09/29/19 10/26/19 Elaina Jiang APRN CNP [address] [place] [address] Assigned PCP 10/27/19 04/03/21 Rosamaria Jones MD [address] [facility] 200 [place] [address] Assigned PCP 04/04/21 05/08/21 Gabe Carl MD [address] [facility] [place] [address] Assigned PCP 05/09/21 Danielle Alcantar MD 909 [place] [address] Assigned Musculoskeletal Provider 07/18/21 02/03/23 documented as of this encounter
[2024-01-25 03:50] LABS: HPV Source Cervix; HPV, High Risk by TMA Not Detected
== END 2024-01-23 08:20 | disposition home or self-care (01) ==
PROVIDERS: PCP Family Medicine; Visit Provider Physician Assistant
DX: E28.2 Polycystic ovarian syndrome (principal); Z12.4 Encounter for screening for malignant neoplasm of cervix; Z13.220 Encounter for screening for lipoid disorders; Z13.1 Encounter for screening for diabetes mellitus
CPT/HCPCS: 80061; 82947; 84146; 84443; 87624; 87625; 88141; 88142

== ENCOUNTER 2024-02-09 07:26 | Outpatient (CLI) | payer BC, SELFPAY ==
--- OUTSIDE RECORDS SUMMARY | 2024-02-09 07:28 | XMS_ITS | Clinical Summary ---
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 Plan colp 04/25/18 [place] - no visible lesions, no bx. Plan pap due in 1 year pap from previous pap 03/13/19 Pap reminder letter sent. ([facility]) 03/14/19 TE states pt is 25 weeks (ASAD 06/27/19), no appts in chart. ([facility]) CCT tracking PCOS (polycystic ovarian syndrome) 04/26/2017 Pre-diabetes 04/07/2008 Irregular menses 03/21/2008 Exercise-induced asthma Resolved Problems Problem Noted Date Diagnosed Date Resolved Date Corneal ulcer, unspecified 08/25/2006 0 04/18/2008 FEVER 04/26/2017 Encounters Date Type Department Care Team Description 01/16/2024 4:00 PM CDT Telemedicine [facility] [address] [place] [address] Katherine Viveros, [facility] Mental Health Intake (No vitals taken) 01/16/2024 Travel 01/05/2024 Travel 12/27/2023 7:45 AM CDT - 12/27/2023 11:53 AM CDT Emergency [address] [address] Yo Alfredo MD Chest pain, unspecified type (Primary Dx); Shortness of breath; Cough, unspecified type; Nausea Discharge Disposition: Home Self Care 12/27/2023 Travel 12/10/2023 7:05 PM CDT - 12/10/2023 7:52 PM CDT Emergency [address] [address] Evi Novak PA Mastitis, right, acute (Primary [...] 12 LEAD STAT 12/27/2023 7:51 AM CDT COMPUTER SCIENCE INSTRUCTOR THIN PREP PAP SCREEN IMAGED Routine 08/20/2020 [...] resultswithin the time period is included. Pathologist [facility] Interpretation Normal sinus rhythm Normal ECG BEYOND NOW Ventricular Rate 100 BPM BEYOND NOW Atrial Rate 100 BPM BEYOND NOW P-R Interval 124 ms BEYOND NOW QRS Duration 84 ms BEYOND NOW QT 320 ms BEYOND NOW QTc 412 ms BEYOND NOW P [place] 56 degrees BEYOND NOW R [place] 86 degrees BEYOND NOW T [place] 71 degrees BEYOND NOW 12/27/2023 4:05 PM CDT 12/29/2023 8:11 AM CDT Boston Tinajero DO EKG ORD BEYOND NOW [place], [place] * TROPONIN T (HS) ONE TIME (12/27/2023 10:25 AM CDT) TROPONIN T HS <6 6-10 ng/L ng/L 12/27/2023 10:59 AM CDT [facility] Blood BLOOD SPECIMEN / Unknown Non-Lab Butterfly / Unknown 12/27/2023 10:25 AM CDT 12/27/2023 10:30 AM CDT Yo Alfredo MD CHEMISTRY [facility] [address] [place] [address] * XR CHEST 2 VIEWS PA AND [...] <=0.49 FEU mcg/mL 12/27/2023 9:05 AM CDT [facility] Blood BLOOD SPECIMEN / Unknown IV Start / Unknown 12/27/2023 8:43 AM CDT 12/27/2023 8:55 AM CDT Narrative [facility] - 12/27/2023 9:05 AM CDT The cut off value for exclusion of Deep Vein Thrombosis and / or Pulmonary Embolism is 0.50 FEU mcg/mL For patients greater than 50 years of age the upper limit is age dependent and was calculated with the formula: ?? (PATIENT AGE x 0.01) FEU mcg/mL = Upper limit of normal range Yo Alfredo MD HEMATOLOGY [address] [address] * COVID-19 MOLECULAR (12/27/2023 8:19 AM CDT) COVID 19 [facility]LEC[facility] Negative Negative 12/27/2023 9:02 AM CDT [facility] Comment:All PCR tests are bauman bject to false negative result due to variability in viral load and collection technique. A negative result does not rule out a SARS-CoV-2 infection. Clinical correlation required. TESTING LABORATORY [facility] 12/27/2023 9:02 AM CDT [facility] Comment:Specimen submitted t o [facility] for testing. Other SPECIMEN FROM NASOPHARYNGEAL STRUCTURE / Unknown Non-Blood / Unknown 12/27/2023 8:19 AM CDT 12/27/2023 8:23 AM CDT Yo Alfredo MD MICROBIOLOGY [facility] [address] [place] [address] * TROPONIN T (HS) ACUTE W/2HR REFLEX (12/27/2023 8:19 AM CDT) TROPONIN T HS 6 6-10 ng/L ng/L 12/27/2023 8:55 AM CDT [facility] Blood BLOOD SPECIMEN / Unknown IV Start / Unknown 12/27/2023 8:19 AM CDT 12/27/2023 8:23 AM CDT Narrative [facility] - 12/27/2023 8:55 AM CDT hs-cTnT [...] department patient population. Yo Alfredo MD CHEMISTRY [facility] [address] [place] [address] * CBC W PLT NO DIFF (12/27/2023 8:19 AM CDT) WHITE BLOOD COUNT 8.0 4.5 - 11.0 thou/cu mm 12/27/2023 8:26 AM CDT [facility] RED BLOOD COUNT 4.50 4.00 - 5.20 mil/cu mm 12/27/2023 8:26 AM CDT [facility] HEMOGLOBIN 14.2 12.0 - 16.0 g/dL 12/27/2023 8:26 AM CDT [facility] HEMATOCRIT 42.4 33.0 - 51.0 % 12/27/2023 8:26 AM CDT [facility] MCV 94 80 - 100 fL 12/27/2023 8:26 AM CDT [facility] MCH 31.6 26.0 - 34.0 pg 12/27/2023 8:26 AM CDT [facility] MCHC 33.5 32.0 - 36.0 g/dL 12/27/2023 8:26 AM CDT [facility] RDW 12.9 11.5 - 15.5 % 12/27/2023 8:26 AM CDT [facility] PLATELET COUNT 188 140 - 440 thou/cu mm 12/27/2023 8:26 AM CDT [facility] MPV 10.9 6.5 - 11.0 fL 12/27/2023 8:26 AM CDT [facility] NRBC 0.0 % 12/27/2023 8:26 AM CDT [facility] ABS NRBC 0.0 thou /cu mm 12/27/2023 8:26 AM CDT [facility] Blood BLOOD SPECIMEN / Unknown IV Start / Unknown 12/27/2023 8:19 AM CDT 12/27/2023 8:23 AM CDT Yo Alfredo MD HEMATOLOGY [facility] [address] [place] [address] * (ABNORMAL) BASIC METABOLIC PANEL (12/27/2023 8:19 AM CDT) SODIUM 140 136 - 145 mmol/L 12/27/2023 9:18 AM CDT [facility] POTASSIUM 12/27/2023 9:18 AM CDT [facility] Comment:Canceled- Specimen H emolyzed, Disposition Per Policy CHLORIDE 101 98 - 107 mmol/L 12/27/2023 9:18 AM CDT [facility] CO2,TOTAL 19(L) 22 - 29 mmol/L 12/27/2023 9:18 AM CDT [facility] ANION GAP 20(H) 5 - 18 12/27/2023 9:18 AM CDT [facility] GLUCOSE 106(H) 70 - 99 mg/dL 12/27/2023 9:18 AM CDT [facility] CALCIUM 9.7 8.6 - 10.0 mg/dL 12/27/2023 9:18 AM CDT [facility] BUN 8 6 - 20 mg/dL 12/27/2023 9:18 AM CDT [facility] CREATININE 0.75 0.50 - 0.90 mg/dL 12/27/2023 9:18 AM T [facility] BUN/CREAT RATIO 11 10 - 20 9:18 AM CDT [facility] eGFR >90 >90 mL/min/1.7 3m2 12/27/2023 9:18 AM CDT [facility] Comment:As of 2021, eG FR is calculated by the CKD-EPI creatinine equation without race adjustment. ??eGFR can be influenced by muscle mass, exercise, and diet. ??The reported eGFR is an estimation only and is only applicable if the renal function is stable. Blood BLOOD SPECIMEN / Unknown IV Start / Unknown 12/27/2023 8:19 AM CDT 12/27/2023 8:23 AM CDT Narrative [facility] - 12/27/2023 9:18 AM CDT Ok to report BMP without K per Jenny Rasheed RN Yo Alfredo MD CHEMISTRY [facility] [address] [place] [address] * COMPUTER SCIENCE INSTRUCTOR THIN PREP PAP SCREEN IMAGED (08/20/2020 1:00 PM CDT) Case Report Gynecologic Cytology Report ? Case: [id number] ? Authorizing Provider: ??Megan Hernandez MD ??Collected: ? 08/20/2020 1300 ? Ordering Location: ? [facility] ?Received: ?08/23/2020 09 ? First Screen: ?Baccam, Minie ? Specimen: ?COMPUTER SCIENCE INSTRUCTOR ThinPrep Vial Screening, Cervical/Vaginal ? 09/01/2020 12:03 PM CDT [facility] INTERPRETATION/ RESULT NEGATIVE FOR INTRAEPITHELIAL LESION OR MALIGNANCY (NIL) (none) 09/01/2020 12:03 PM CDT [facility] IMEN ADEQUACY Satisfactory for evaluation Endocervical component present 09/01/2020 12:03 PM CDT [facility] HPV REQUEST HPV and PAP 09/01/2020 12:03 PM CDT [facility] Date of LMP 07/30/2020 09/01/2020 12:03 PM CDT [facility] Last Pap Date 08/19/2019 09/01/2020 12:03 PM CDT [facility] Last Pap Result NIL 12:03 PM CDT [facility] Additional Information 09/01/2020 12:03 PM CDT [facility] Comment: Interpreted at [facility] - [address], [place] [address] Automated Review Successful 09/01/2020 12:03 PM T [facility] Comment:Specimen processed s uccessfully by automated interactive producer device, ThinPrep Imaging System, [employer] ANCILLARY TESTING COMPUTER SCIENCE INSTRUCTOR HPV Ordered, Please see separate report 09/01/2020 12:03 PM CDT [facility] Note The pap test is a [...] and malignant lesions. 09/01/2020 12:03 PM CDT [facility] Other (Cervical/Vagina l) 08/20/2020 1:00 PM CDT 08/23/2020 9:27 AM CDT Megan Hernandez MD PATHOLOGY/CYTOLO GY [facility] [address] [place] [address], [place] * ANTI HCV (11/12/2010 11:20 AM CDT) ANTI HCV Non-reacti ve [facility] Blood specimen (specimen) BLOOD SPECIMEN / Unknown 11/12/2010 11:20 AM CDT 11/12/2010 11:08 AM CDT Capri Marquez MD SEND OUTS [facility] INTERNAL ZIP [address] [address] * ANTI HIV 1/2 (11/12/2010 11:20 AM CDT) [facility]TI [facility] (specimen[facility] BLOOD SPECIMEN / Unknown 11/12/2010 11:20 AM CDT 11/12/2010 11:08 AM CDT Capri Marquez MD SEND OUTS [facility] INTERNAL ZIP [address] [place] [address] from Last 3 Months or Most Recently [...] Code Status Discussion: Reviewed Preferences Care Teams Scheduler Conveyor Relationship Specialty Start Date End Date Pedro Boudreaux MD [address] [place] [address] PCP - General Family Practice 05/10/23 Leana Syed, RN, BSN [address] [place] [address] Nurse Navigator - Oncology Registered Nurse 05/29/23 Ceferino Catalan MD [address], [place] [address] Surgery - Cardiothoracic 06/01/23
--- OUTSIDE RECORDS SUMMARY | 2024-02-09 07:29 | XMS_ITS | Encounter Summary ---
Author Organization [place] Address [address] [place] [address]. [place] [address] Care Team Providers Care Underwear Trimmer Name Role Phone Madelaine Mitchell DO Unavailable Francesco Merritt MD Unavailable Gabe Carl MD Unavailable [phone] [place] [address] Primary Care Provider Encounter Details Date Type Department Care Team (Late st Contact Info) Description 01/30/2024 MyC Medical Advice [facility] Women's [facility] [address] [place] [address] Madelaine Mitchell DO [address] [place] [address] Social History Tobacco Use Types Packs/Day Years Used Date Smoking Tobacco: Former Smokeless Tobacco: Never Comments:2 to 3 a day Alcohol Use Standard Drinks/Week Comments Yes 0 (1 standard drink = 0.6 oz pur e alcohol) PHQ-2 Answer Date Recorded PHQ-2 Score 3 10/24/2022 Adolescent Education Answer Date Record ed Getting School Help Needed Not on file 01/06 Comments No Sex and Gender Information Value Date Recorded Sex Assigned at Not on file Legal Sex Female 2:11 PM CDT Gender Identity Not on file Sexual Orientation Not on file documented as of this encounter Miscellaneous Notes * Telephone Encounter - Marcella Arce RN - 02/01/2024 9:13 AM CDT Please see mychart message Pt responded to question about medications. Added her in to schedule next week. Marcella Arce RN [facility] * Telephone Encounter - Madelaine Mitchell DO - 01/31/2024 4:53 PM CDT Ok to add sooner, ok to double book. Usually works well to double book at physical slot .Dr. Madelaine Mitchell DO Obstetrics and Gynecology [facility] * Telephone Encounter - Grisel Catalan RN - 01/31/2024 8:30 AM CDT Please address the my chart message. Re: appedith Catalan RN documented in this encounter Plan of Treatment Not on file documented as of this encounter Visit Diagnoses Not on filedocumented in this encounter Additional Health Concerns Assessment Noted Time PHQ-9 Depression Total Score: 21 023 10:16 AM CDT documented as of this encounter Care Teams Underwear Trimmer Relationship Specialty Start Date End Date [address] [address] PCP - General 11/28/23 Madelaine Mitchell DO paramedic instructor 07/26/16 Francesco Merritt MD [facility] [facility] [address] [place] [address] Family Medicine - Sports Medicine 12/14/18 Gabe Carl MD [address] [facility] [address] [place], [place] [address] Assigned PCP 05/09/21 documented as of this encounter
--- OUTSIDE RECORDS SUMMARY | 2024-02-09 07:29 | XMS_ITS | Encounter Summary ---
Author Organization [facility] Address [address] [place] [address] Care Team Providers Care Front Loader Residential Driver Name Role Phone DarwinMadelaine patel Unavailable [phone] Francesco Merritt MD Unavailable [phone] Gabe Carl MD Unavailable [phone] [facility] Primary Care Provider Encounter Details Date Type Department Care Team (Latest Contact Info) Description 02/08/2024 Travel Social History Tobacco Use Types Packs/Day [...] documented as of this encounter Care Teams Front Loader Residential Driver Relationship Specialty Start Date End Date [address] [phone] PCP - General 11/28/23 Madelaine Mitchell DO professional nursing assistant 07/26/16 Francesco eMrritt MD [facility] [facility] [address] [place] [address] Family Medicine - Sports Medicine 12/14/18 Gabe Carl MD [address] [facility] VINICIUS MANNING [id number] Assigned PCP 05/09/21 documented as of this encounter
--- OUTSIDE RECORDS SUMMARY | 2024-02-09 07:29 | XMS_ITS | Encounter Summary ---
Author Organization [facility] Address [address] [place] [address] Care Team Providers Care Engineer Remote Control Diesel Name Role Phone DarwinMadelaine patel Unavailable [phone] Francesco Merritt MD Unavailable [phone] Gabe Carl MD Unavailable [phone] [facility] Primary Care Provider Encounter Details Date Type [...] documented as of this encounter Care Teams Engineer Remote Control Diesel Relationship Specialty Start Date End Date [address] [id number] PCP - General 11/28/23 Madelaine Mitchell DO convention worker 07/26/16 Francesco Merritt MD [facility] [facility] [address] [place] [address] Family Medicine - Sports Medicine 12/14/18 Gabe Carl MD [address] [facility] VINICIUS MANNING [id number] Assigned PCP 05/09/21 documented as of this encounter
--- OUTSIDE RECORDS SUMMARY | 2024-02-09 07:29 | XMS_ITS | Encounter Summary ---
Author Organization [facility] Address [address] [place] [address]. [place] [address] Care Team Providers Care Tractor Expert Name Role Phone Madelaine Mitchell Unavailable [phone] Francesco Merritt MD Unavailable [phone] Gabe Carl MD Unavailable [phone] [place] [address] Primary Care Provider Reason for Visit * Reason Comments Dizziness Headache Anxiety Encounter Details Date Type Department Care Team (Late st Contact Info) Description 01/05/2024 12:29 AM CDT - 01/05/2024 2:46 AM CDT Emergency [facility] Emergency Dept [address] [place] [address] [phone] Simone Kumar MD [facility] [address] [place], [place] [phone] Alcohol withdrawal, uncomplicated (H) Discharge Disposition: Home [...] Care Everywhere. * Alcohol Withdrawal: General Info ([place]) documented in this encounter Medications at Time of Discharge azelastine (ASTELIN) 0.1 % nasal sprayIndications: Post-nasal drip [place] 1 spray into both nostrils 2 times daily 1 Bottle 11 10/22/2018 diazepam (VALIUM) 2 MG tablet 1 TABLET BY MOUTH NIGHTLY FOR 14 NIGHTS, THEN DISCONTINUE. 06/22/2021 hydrOXYzine (ATARAX) 25 MG tablet Take 25 mg by mouth 3 times daily as needed for itching. letrozole (FEMARA) 2.5 MG tabletIndications :Anovulation Take 1 tablet (2.5 mg) by mouth See Admin Instructions 35 tablet 03/18/2021 loratadine (CLARITIN) 10 MG tablet Take 10 mg by mouth daily LORazepam (ATIVAN) 0.5 MG tablet Take 0.5 mg by mouth 2 times daily as needed for anxiety. metFORMIN (GLUCOPHAGE-XR) 500 MG 24 hr tabletIndications :PCOS (polycystic ovarian syndrome) TAKE 4 TABLETS BY MOUTH DAILY 360 tablet 1 04/08/2019 methocarbamol (ROBAXIN) 500 MG tabletIndications :Trapezius muscle spasm,Left arm numbness Take 1-2 tablets (500-1,000 mg) by mouth 4 times daily as needed for muscle spasms 20 tablet 04/30/2021 nystatin (MYCOSTATIN) 620148 UNIT/ML suspension TAKE 6 ML BY MOUTH FOUR TIMES A DAY SWISH IN MOUTH AND SWALLOW. KEEP IN MOUTH LONG POSSIBLE PRIOR TO SWALLOWING. 01/31/2020 Vit-Fe Fumarate-FA ( MULTIVITAMIN PLUS IRON) 27-0.8 MG TABS Take 1 tablet by mouth daily. famotidine (PEPCID) 20 MG tablet Take 1 tablet (20 mg) by mouth 2 times daily for 10 days. 20 tablet 01/03/2024 4 ondansetron (ZOFRAN ODT) 4 MG ODT tab Take 1 tablet (4 mg) by mouth every 8 hours as needed for nausea. 10 tablet 01/03/2024 4 BIOTIN PO 4 busPIRone (BUSPAR) 5 MG tabletIndications :Anxiety Take 1 tablet (5 mg) by mouth 2 times daily for 10 days, THEN 1.5 tablets (7.5 mg) 2 times daily for 10 days, THEN 2 tablets (10 mg) 2 times daily for 10 days. 90 tablet 04/30/2021 4 chlordiazePOXIDE (LIBRIUM) 25 MG capsule Take 1 capsule (25 mg) by mouth 3 times daily as needed for anxiety. 15 capsule 01/03/2024 4 ibuprofen (ADVIL/MOTRIN) 200 MG tablet Take 3 tablets (600 mg) by mouth every 8 hours as needed for mild pain 1 tablet 12/24/2020 4 oxyCODONE (ROXICODONE) 5 MG tablet Take 1 tablet (5 mg) by mouth every 6 hours as needed for pain 6 tablet 12/24/2020 4 PARoxetine (PAXIL) 20 MG tablet Take 20 mg by mouth At Bedtime 4 Probiotic Product (ACIDOPHILUS PROBIOTIC BLEND PO) 4 prochlorperazine (COMPAZINE) 10 MG tablet Take 1 tablet (10 mg) by mouth every 6 hours as needed for nausea or vomiting 20 tablet 03/31/2021 4 documented as of this encounter ED Notes [...] Albuterol Hydroxyzine pamoate Oxycodone Surgical History Colonoscopy [place] teeth extraction Knee surgery Lasik bilateral ORIF [...] Bilirubin Urine Negative Ketones Urine Negative Specific [place] Urine 1.011 Blood Urine Trace (*) pH [...] Documentation None Medical Decision Making / Diagnosis [facility] Diagnoses: None MIPS None [facility] Neda Moss is a 33 year old [...] as of 01/05/2024 2:40 AM Scribe Disclosure: Catalina Allred, am serving as a scribe at 3:49 [...] started having adverse symptoms 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 Otherwise vss documented in this encounter Plan [...] CDT Yassine Cramer MD LAB - BLOOD ORDERABLES Final Result LABORATORY [facility] Acute Care Lab [address] Lab (1st floor, no room number) [place] [address], [facility] * (ABNORMAL) Basic metabolic panel [...] CDT Yassine Cramer MD LAB - BLOOD ORDERABLES Final Result [facility] LABORATORY [facility] Acute Care Lab [address] Lab (1st floor, no room number) [place] [address] * Urine Culture (01/05/2024 1:28 AM [...] Yassine Cramer MD LAB - MICRO GENERAL ORDERABLE S Final Result [facility] IDD LABORATORY [facility] Inf. Diseases Diag. Lab [address] [facility] [place] [address] * (ABNORMAL) UA with Microscopic [...] mg/dL 01/05/2024 2:04 AM CDT LABORATORY Specific [place] Urine 1.011 1.003 - 1.035 01/05/2024 2:04 AM CDT LABORATORY Blood Urine Trace(A) Negative 01/05/2024 2:04 AM CDT LABORATORY pH Urine 7.0 5.0 - 7.0 01/05/2024 2:04 AM CDT [facility] LABORATORY Protein Albumin Urine Negative Negative mg/dL 01/05/2024 2:04 AM CDT [facility] LABORATORY Urobilinogen Urine Normal Normal, 2.0 mg/dL 01/05/2024 2:04 AM CDT [facility] LABORATORY Nitrite Urine Negative Negative 01/05/2024 2:04 AM CDT [facility] LABORATORY Leukocyte Esterase Urine Large(A) Negative 01/05/2024 2:04 AM CDT [facility] LABORATORY Bacteria Urine Moderate(A) None Seen /HPF 01/05/2024 2:04 AM CDT [facility] LABORATORY Mucus Urine Present(A) None Seen /LPF 01/05/2024 2:04 AM CDT [facility] LABORATORY RBC Urine 5(H) <=2 /HPF 01/05/2024 2:04 AM CDT [facility] LABORATORY WBC Urine 44(H) <=5 /HPF 01/05/2024 2:04 AM CDT [facility] LABORATORY Squamous Epithelials Urine 15(H) <=1 /HPF 01/05/2024 2:04 AM CDT LABORATORY Urine MID-STREAM URINE SPECIMEN / Unknown Non-blood Collection / Unknown 01/05/2024 1:28 AM CDT 01/05/2024 1:51 AM CDT Narrative [facility] LABORATORY - 01/05/2024 2:04 AM CDT Urine Culture ordered based on laboratory criteria us Yassine Cramer MD LAB - URINE ORDERABLES Final Result LABORATORY [facility] Acute Care Lab [address] Lab (1st floor, no room number) [place] [address] * EKG 12-lead, tracing only (01/05/2024 1:13 AM CDT) Systolic Blood Pressure mmHg RADIOLOGY RESULTS Diastolic Blood Pressure mmHg RADIOLOGY RESULTS Ventricular Rate 52 BPM RAD IOLOGY RESULTS Atrial Rate 52 BPM RADIOLOG Y RESULTS WY Interval 160 ms RADIOLOG Y RESULTS QRS Duration 86 ms RADIOLO GY RESULTS QT 446 ms RADIOLOGY RESULTS QTc 414 ms RADIOLOGY RESULTS P Struthers 37 degrees RADIOLOGY RESULTS R AXIS 21 degrees RADIOLOGY RESULTS T Struthers 13 degrees RADIOLOGY RESULTS Interpretation ECG Sinus bradycardia with sinus arrhythmia Cannot rule out Anterior infarct , age undetermined Abnormal ECG When compared with ECG of 03-Jan-2024 02:23, Vent. rate has decreased by ??41 bpm Confirmed by - EMERGENCY ROOM, PHYSICIAN ([id number]), editorial manager CROW MOTTA ([id number]) on 01/05/2024 6:42:05 AM RADIOLOGY RESULTS 01/05/2024 1:13 AM CDT 01/05/2024 6:42 AM CDT us Yassine Cramer MD ECG ORDERABLES Edited Result - Final RADIOLOGY RESULTS documented in this encounter Visit [...] dose 0200 ($Given - Provi vidhi: Shantal Petersen RN) metoclopramide (REGLAN) injection 10 mg (COMPLETED) 10 mg, Intravenous, Administer over 2 Minutes, ONCE, On Mon01/05/24 at 0200, For 1 dose, Avoid use if patient has full bowel obstruction or perforation. 0201 ($Given - Provi vidhi: Shantal Petersen RN) documented in this encounter Additional Health Concerns Assessment Noted Time PHQ-9 Depression Total Score: 21 023 10:16 AM CDT documented as of this encounter Care Teams Tractor Expert Relationship Specialty Start Date End Date [facility], [address] [address] PCP - General 11/28/23 Madelaine Mithcell DO operations recruiter 07/26/16 Francesco Merritt MD [facility] [place] [address] Family Medicine - Sports Medicine 12/14/18 Gabe Carl MD [address] [place] [address] Assigned PCP 05/09/21 documented as of this encounter
--- OUTSIDE RECORDS SUMMARY | 2024-02-09 07:29 | XMS_ITS | Referral Summary ---
Author Organization [facility] Address [address] [place] [address] Care Team Providers Care Note Keeper Name Role Phone Madelaine Mitchell DO Unavailable Francesco Merritt MD Unavailable Gabe Carl MD Unavailable [phone] [place] [address] Primary Care Provider Encounters Date Type Department Care Team Description 02/08/2024 Travel 02/08/2024 8:45 AM CDT Office Visit [facility] [address] [place] [phone] Madelaine Mitchell DO Malignant neoplasm of lung, unspecified laterality, unspecified part of lung (H) (Primary Dx); Pituitary adenoma (H); Alcohol use disorder; History of benzodiazepine use 01/30/2024 MyC Medical Advice [facility] [address] [place] [address] Madelaine Mitchell DO 01/11/2024 Telephone [facility] [address] [place] [address] Madelaine Mitchell DO 01/05/2024 Travel 01/05/2024 12:29 AM CDT - 01/05/2024 2:46 AM CDT Emergency [facility] Emergency Dept [address] [place] [address] Simone Kumar MD Alcohol withdrawal, uncomplicated (H) Discharge Disposition: Home or Self Care 01/03/2024 Travel 01/03/2024 12:57 AM CDT - 01/03/2024 4:39 AM CDT Emergency [facility] Emergency Dept [address] [place] [address] Angie Levi, DO Alcohol dependence with uncomplicated withdrawal (H); Alcohol-induced acute pancreatitis without infection or necrosis; Nausea and vomiting, unspecified vomiting type; Benzodiazepine misuse Discharge Disposition: Home or Self Care 11/28/2023 Travel 11/28/2023 2:03 PM CDT - 11/28/2023 5:34 PM CDT Emergency [facility] Emergency Dept [address] [place] [address] Matt Clements MD Anxiety reaction; Benzodiazepine withdrawal without complication (H) Discharge Disposition: Home or Self Care from Last 3 Months Allergies Active Allergy Reactions Criticality Noted Date Comments Polymyxin B-Trimethoprim 07/20/2017 Swelling in eye Sulfa Antibiotics Swelling 09/12/2014 Medications * This document contains information received from the source organization and may not represent a complete record from that organization. Vit-Fe Fumarate-FA ( MULTIVITAMIN PLUS IRON) 27-0.8 MG TABS Take 1 tablet by mouth daily. Active loratadine (CLARITIN) 10 MG tablet Take 10 mg by mouth daily Active azelastine (ASTELIN) 0.1 % nasal sprayIndications :Post-nasal drip [place] 1 spray into both nostrils 2 times daily 1 Bottle 11 10/23/19 19 Active metFORMIN (GLUCOPHAGE-XR) 500 MG 24 hr tabletIndication s:PCOS (polycystic ovarian syndrome) TAKE 4 TABLETS BY MOUTH DAILY 360 tablet 1 04/08/20 19 Active nystatin (MYCOSTATIN) [id number] UNIT/ML suspension TAKE 6 ML BY MOUTH FOUR TIMES A DAY SWISH IN MOUTH AND SWALLOW. KEEP IN MOUTH LONG POSSIBLE PRIOR TO SWALLOWING. 01/31/20 20 Active letrozole (FEMARA) 2.5 MG tabletIndication s:Anovulation Take 1 tablet (2.5 mg) by mouth See Admin Instructions 35 tablet 03/18/20 Active Additional Information Patient not taking.Reported on 10/24/2022 methocarbamol (ROBAXIN) 500 MG tabletIndication s:Trapezius muscle spasm,Left arm numbness Take 1-2 tablets (500-1,000 mg) by mouth 4 times daily as needed for muscle spasms 20 tablet 04/30/19 22 Active Additional Information Patient not taking.Reported on 02/08/2024 diazepam (VALIUM) 2 MG tablet 1 TABLET BY MOUTH NIGHTLY FOR 14 NIGHTS, THEN DISCONTINUE. 06/23/19 Active hydrOXYzine (ATARAX) 25 MG tablet Take 25 mg by mouth 3 times daily as needed for itching. Active LORazepam (ATIVAN) 0.5 MG tablet Take 0.5 mg by mouth 2 times daily as needed for anxiety. Active Probiotic Product (ACIDOPHILUS PROBIOTIC BLEND PO) Discontinu ed(Stopped by Patient (No AVS)) BIOTIN PO Discontinu ed(Stopped by Patient (No AVS)) oxyCODONE (ROXICODONE) 5 MG tablet Take 1 tablet (5 mg) by mouth every 6 hours as needed for pain 6 tablet 12/25/19 21 Discontinu ed(Stopped by Patient (No AVS)) ibuprofen (ADVIL/MOTRIN) 200 MG tablet Take 3 tablets (600 mg) by mouth every 8 hours as needed for mild pain 1 tablet 12/25/19 21 Discontinu ed(Stopped by Patient (No AVS)) prochlorperazine (COMPAZINE) 10 MG tablet Take 1 tablet (10 mg) by mouth every 6 hours as needed for nausea or vomiting 20 tablet 03/31/20 21 Discontinu ed(Stopped by Patient (No AVS)) busPIRone (BUSPAR) 5 MG tabletIndication s:Anxiety Take 1 tablet (5 mg) by mouth 2 times daily for 10 days, THEN 1.5 tablets (7.5 mg) 2 times daily for 10 days, THEN 2 tablets (10 mg) 2 times daily for 10 days. 90 tablet 04/30/19 22 024 Discontinu ed(Stopped by Patient (No AVS)) PARoxetine (PAXIL) 20 MG tablet Take 20 mg by mouth At Bedtime 024 Discontinu ed(Stopped by Patient (No AVS)) chlordiazePOXIDE (LIBRIUM) 25 MG capsule Take 1 capsule (25 mg) by mouth 3 times daily as needed for anxiety. 15 capsule 01/03/20 24 024 Discontinu ed(Stopped by Patient (No AVS)) famotidine (PEPCID) 20 MG tablet Take 1 tablet (20 mg) by mouth 2 times daily for 10 days. 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 Plan colp 04/25/18 [place] - no visible lesions, no bx. Plan pap due in 1 year pap from previous pap 03/13/19 Pap reminder letter sent. ([facility]) 03/14/19 TE states pt is 25 weeks (ASAD 06/27/19), no appts in chart. ([facility]) CCT tracking Headache 12/16/2016 PCOS (polycystic [...] Sign Reading Time Taken Comments Blood Pressure 112/70 02/08/2024 8:38 AM CDT Pulse 70 01/05/2024 2:45 AM CDT Temperature 35.8 ??C (96.4 ??F) 01/05/2024 12:30 AM C DT Respiratory Rate 19 01/05/2024 2:05 AM CDT Oxygen Saturation 100% 01/05/2024 2:45 AM CDT Inhaled Oxygen Concentration - - Weight 92.1 kg (203 lb) 02/08/2024 8:38 AM CDT Height 170.2 cm (5' 7) 02/08/2024 8:38 AM CDT Body Mass Index 31.79 02/08/2024 8:38 AM CDT Plan of Treatment Not on [...] TYPES DNA CERVICAL Routine 03/28/2018 9:20 AM MAITRE D PCOS (polycystic ovarian syndrome) PAP IMAGED THIN LAYER SCREEN Routine 03/28/2018 9:09 AM MAITRE D Encounter for general adult medical examination with abnormal findings HIV ANTIGEN ANTIBODY COMBO Routine 05/05/2016 9:51 AM MAITRE D test positive from Last 3 Months or [...] 1:38 AM CDT 01/05/2024 1:50 AM CDT us Yassine Cramer MD LAB - BLOOD ORDERABLES Final Result [facility] LABORATORY [facility] [address] Lab (1st floor, no room number) [place] [address], [facility] * (ABNORMAL) Basic metabolic panel (01/05/2024 1:38 [...] 01/05/2024 2:10 AM CDT LABORATORY Comment:eGFR calculated 2020 CKD-EPI equation. Calcium 9.6 8.8 - [...] 1:38 AM CDT 01/05/2024 1:50 AM CDT us Yassine Cramer MD LAB - BLOOD ORDERABLES Final Result LABORATORY [facility] [address] Lab (1st floor, no room number) [place] [address], [facility] * (ABNORMAL) UA with Microscopic reflex to Culture (01/05/2024 1:28 AM CDT) Only the most recent of2 resultswithin the time period is included. Color Urine Light Yellow Colorless, Straw, Light Yellow, Yellow 01/05/2024 2:04 AM CDT LABORATORY Appearance Urine Slightly Cloudy(A) Clear 01/05/2024 2:04 AM CDT LABORATORY Glucose Urine Negative Negative mg/dL 01/05/2024 2:04 AM CDT RH LABORATORY Bilirubin Urine Negative Negative 2:04 AM CDT [facility] LABORATORY Ketones Urine Negative Negative mg/dL 01/05/2024 2:04 AM CDT [facility] LABORATORY Specific [place] Urine 1.011 1.003 - 1.035 01/05/2024 2:04 [...] LAB - URINE ORDERABLES Final Result LABORATORY [facility] [address] Lab (1st floor, no room number) [place] [address] * Urine Culture (01/05/2024 1:28 AM [...] collection. ??Suggest repeat specimen if clinically indicated. us Yassine Cramer MD LAB - MICRO GENERAL ORDERABLE S Final Result [facility] LABORATORY [facility] Inf. Diseases Diag. Lab [address] [facility], [address] [place] [address] * EKG 12-lead, tracing only (01/05/2024 1:13 AM CDT) Only the most recent of3 resultswithin the time period is included. Systolic Blood Pressure mmHg RADIOLOGY RESULTS Diastolic Blood Pressure mmHg RADIOLOGY RESULTS Ventricular Rate 52 BPM RAD IOLOGY RESULTS Atrial Rate 52 BPM RADIOLOG Y RESULTS [place] Interval 160 ms RADIOLOG Y RESULTS QRS Duration 86 ms RADIOLO GY RESULTS QT 446 ms RADIOLOGY RESULTS QTc 414 ms RADIOLOGY RESULTS P [place] 37 degrees RADIOLOGY RESULTS R AXIS 21 degrees RADIOLOGY RESULTS T [place] 13 degrees RADIOLOGY RESULTS Interpretation ECG Sinus bradycardia with sinus arrhythmia Cannot rule out Anterior infarct , age undetermined Abnormal ECG When compared with ECG of 03-Jan-2024 02:23, Vent. rate has decreased by ??41 bpm Confirmed by - EMERGENCY ROOM, PHYSICIAN ([id number]), field map editor CROW MOTTA ([id number]) on 01/05/2024 6:42:05 AM RADIOLOGY RESULTS 01/05/2024 1:13 AM CDT 01/05/2024 6:42 AM CDT us Ysasine Cramer MD ECG ORDERABLES Edited Result - Final RADIOLOGY RESULTS * US Abdomen Limited (01/03/2024 3:23 AM CDT) Anatomical Region Laterality Modality Abdomen/Pelvis Ultrasound 01/03/2024 3:23 AM CDT Impressions 01/03/2024 3:30 AM CDT IMPRESSION: 1. ??Hepatomegaly and hepatic steatosis. 2. ??Normal gallbladder. Narrative 01/03/2024 3:30 AM CDT EXAM: US ABDOMEN LIMITED LOCATION: [facility] DATE: 01/03/2024 INDICATION: upper abdominal pain COMPARISON: [...] - 01/03/2024 EXAM: US ABDOMEN LIMITED LOCATION: [facility] DATE: 01/03/2024 INDICATION: upper abdominal pain COMPARISON: [...] Hepatomegaly and hepatic steatosis. 2. Normal gallbladder. us Angie Levi DO IMG US ORDERABLES Final Re sult * (ABNORMAL) Lipase (01/03/2024 1:34 AM CDT) Lipase 85(H) 13 - 60 U/L 01/03/2024 2:01 AM CDT [facility] LABORATORY Blood BLOOD SPECIMEN / Unknown Venipuncture / Unknown 01/03/2024 1:34 AM CDT 01/03/2024 1:42 AM CDT Angie Levi DO LAB - BLOOD ORDERABLES Fin al Result Performing Organization Address City/[facility]/ZIP Co de Phone Number LABORATORY [facility] [address] Lab (1st floor, no room number) [address] [place] [address] * HCG QUALitative (blood) (01/03/2024 1:34 AM CDT) Only the most recent of2 resultswithin the time period is included. Pathologist [facility] hCG Serum Qualitative Negative Negative HERMILO 01/03/2024 2:09 AM CDT [facility] LABORATORY Comment:This test is for scr eening purposes. Results should be interpreted along with the clinical picture. Confirmation testing is available if warranted by ordering [id number], HCG Quantitative . Blood BLOOD SPECIMEN / Unknown Venipuncture / Unknown 01/03/2024 1:34 AM CDT 01/03/2024 1:42 AM CDT Angie Levi DO LAB - BLOOD ORDERABLES Fin al Result LABORATORY [facility] [address] Lab (1st floor, no room number) [place] [id number] [place] [address] * (ABNORMAL) Comprehensive metabolic panel (01/03/2024 1:34 AM CDT) Pathologist [facility] Sodium 142 135 - 145 mmol/L 01/03/2024 [...] - 45 U/L 01/03/2024 2:01 AM CDT LABORATORY ALT 28 0 - 50 U/L 01/03/2024 2:01 AM CDT LABORATORY Protein Total 8.2 6.4 - 8.3 g/dL 01/03/2024 2:01 AM CDT LABORATORY Albumin 5.3(H) 3.5 - 5.2 g/dL 01/03/2024 2:01 AM CDT LABORATORY Bilirubin Total 0.2 <=1.2 mg/dL 01/03/2024 2:01 AM T LABORATORY Blood BLOOD SPECIMEN / Unknown Venipuncture / Unknown 01/03/2024 1:34 AM CDT 01/03/2024 1:42 AM CDT Angie Levi DO LAB - BLOOD ORDERABLES Fin al Result LABORATORY [facility] [address] Lab (1st floor, no room number) [address] * (ABNORMAL) Alcohol level blood (01/03/2024 1:34 AM CDT) Alcohol ethyl 0.08(H) <=0.01 g/dL 01/03/2024 2:01 AM CDT LABORATORY Blood BLOOD SPECIMEN / Unknown Venipuncture / Unknown 01/03/2024 1:34 AM CDT 01/03/2024 1:42 AM CDT Angie Levi DO LAB - BLOOD ORDERABLES Fin al Result Performing Organization Address [facility]/ZIP Co de Phone Number LABORATORY [facility] [address] Lab (1st floor, no room number) [address] * (ABNORMAL) Glucose by meter (01/03/2024 1:30 AM CDT) GLUCOSE BY METER POCT 123(H) 70 - 99 mg/dL 01/03/2024 1:38 AM CDT LABORATORY POC Blood, Capillary BLOOD SPECIMEN / Unknown 01/03/2024 1:30 AM CDT 01/03/2024 1:38 AM CDT Angie Levi DO LAB - BEAKER POCT Final Re sult Performing Organization Address City/[facility]/ZIP Co de Phone Number LABORATORY POC [facility] [address] Lab (1st floor, no room number) [address] * CTA Head Neck w Contrast (11/28/2023 [...] reconstruction technique CHRIS BOONE MD SYSTEM ID: ??[id number] Narrative 11/28/2023 4:[address] ANGIOGRAM [...] reconstruction technique CHRIS BOONE MD SYSTEM ID: [id number] Matt Clements MD [facility] CT ORDERABLES Final Result * CT Head w/o Contrast (11/28/2023 3:58 [...] reconstruction technique CHRIS BOONE MD SYSTEM ID: ??[id number] Narrative 11/28/2023 4:[address] OF [...] reconstruction technique CHRIS BOONE MD SYSTEM ID: [id number] Matt Clements MD IMG CT ORDERABLES Final Result * Extra Red Top Tube (11/28/2023 12:57 PM CDT) Hold Specimen [facility] 11/28/2023 2:16 PM CDT LABORATORY Blood STRUCTURE OF LEFT UPPER LIMB / Unknown Venipuncture / Unknown 11/28/2023 12:57 PM CDT 11/28/2023 1:10 PM CDT Matt Clements MD LAB - BLOOD ORDERABLES Final Result [facility] [address] Lab (1st floor, no room number) [place] [id number] * Extra Blue Top Tube (11/28/2023 12:57 PM CDT) [facility] Signature Hold Specimen [facility] 11/28/2023 2:16 PM CDT LABORATORY Blood STRUCTURE OF LEFT UPPER LIMB / Unknown Venipuncture / Unknown 11/28/2023 12:57 PM CDT 11/28/2023 1:10 PM CDT Matt Clements MD LAB - BLOOD ORDERABLES Final Result [facility] [address] Lab (1st floor, no room number) [place] [id number] * Troponin T, High Sensitivity (11/28/2023 12:57 PM CDT) [facility] Troponin T, High Sensitivity <6 <=14 [...] CDT Matt Clements MD LAB - BLOOD ORDERABLES Final Result Performing Organization Address City/[facility]/ZIP Co de Phone Number [facility] Lab [address] Lab (1st floor, no room number) [place] [phone] * TSH with free T4 reflex (11/28/2023 12:57 PM CDT) TSH 0.42 0.30 - 4.20 uIU/mL 11/28/2023 2:42 PM CDT LABORATORY Blood STRUCTURE OF LEFT UPPER LIMB / Unknown Venipuncture / Unknown 11/28/2023 12:57 PM CDT 11/28/2023 1:10 PM CDT Matt Clements MD LAB - BLOOD ORDERABLES Final Result LABORATORY [facility] [address] Lab (1st floor, no room number) [place] [address] * Magnesium (11/28/2023 12:57 PM CDT) Magnesium 2.0 1.7 - 2.3 mg/dL 11/28/2023 2:31 PM CDT RH LABORATORY Blood STRUCTURE OF LEFT UPPER LIMB / Unknown Venipuncture / Unknown 11/28/2023 12:57 PM CDT 11/28/2023 1:10 PM CDT us Matt Clements MD LAB - BLOOD ORDERABLES Final Result [facility] Lab [address] [facility] Lab (1st floor, no room number) [place] [address], [facility] * (ABNORMAL) HPV High Risk Types DNA Cervical (03/28/2018 9:20 AM MAITRE D) HPV Source [facility] 04/03/2018 7:[address] [facility] HPV 16 DNA Negative NEG^Nega tive 04/03/2018 4:[address] [facility] HPV 18 DNA Negative NEG^Nega tive 04/03/2018 4:[address] [facility] Other HR HPV Positive(A) NEG^Nega tive 04/03/2018 4:18 PM [facility] Final Diagnosis This patient's sample is positive for other HR HPV DNA (types 31, 33, 35, 39, 45, 51, 52, 56, 58, 59, 66 or 68), not HPV 16 or HPV 18 DNA. This result requires clinical correlation with concurrent cytology findings. 04/03/2018 4:18 PM [facility] Comment: This test was developed and its performance characteristics determined by the [facility], Molecular Diagnostics Laboratory. It has not [...] Specimen Description Cervical Cells 04/03/2018 7:38 AM [address] [facility] Comment:[id number] 03/28/2018 9:20 AM MAITRE D 03/28/2018 2:56 PM MAITRE D us Tristen Jiang RECREATION COUNSELOR ENGINEERING TECHNOLOGY INSTRUCTOR LAB - BLOOD ORDERABL ES Final Result [facility] [address] [place] [address] * (ABNORMAL) Pap imaged thin layer screen reflex to HPV if ASCUS - recommend age 25 - 29 (03/28/2018 9:09 AM MAITRE D) PAP ASC-US(A) JOSE JUAN Singh Report Patient Name: MADI MOSS MR#: [id number] Specimen #: [id number] Collected: 03/28/2018 Received: 03/29/2018 Reported: 04/02/2018 14:41 [...] Carmine Stevens M.D. Processed and screened at [facility] CLINICAL HISTORY: LMP: 03/05/2018 A previous normal pap Date of Last Pap: 01/01/2015, Papanicolaou Test Limitations: ??Cervical cytology is a screening test with limited sensitivity; regular screening is critical for cancer prevention; Pap tests are primarily effective for the diagnosis/preventi on of squamous cell carcinoma, not adenocarcinomas or other cancers. TESTING LAB LOCATION: [facility] [address] [place], [place] ??[address] COLLECTION SITE: Client: ??[facility] Location: RIIM (R) [facility] Cytologic material (specimen) 03/28/2018 9:09 AM MAITRE D 03/29/2018 11:25 AM MAITRE D us Tristen Jiang RECREATION COUNSELOR ENGINEERING TECHNOLOGY INSTRUCTOR LAB - [facility] SPECIMEN Final Result [facility] * HIV Antigen Antibody Combo (05/05/2016 9:51 AM MAITRE D) HIV Antigen Antibody Combo Nonreactive HIV-1 p24 Ag & HIV-1/HIV-2 Ab Not Detected NR [facility] Blood specimen (specimen) 05/05/2016 9:51 AM MAITRE D 05/05/2016 9:56 AM MAITRE D us Madelaine Mitchell DO LAB - BLOOD ORDERABLES Fi nal Result [facility] [address] from Last 3 Months or Most Recently Relevant to Health Maintenance Insurance [facility] OUT OF STATE BCBS OUT OF STATE BCBS OUT OF STATE Care Teams Note Keeper Relationship Specialty Start Date End Date [facility], [address] [address] PCP - General 11/28/23 Madelaine Mitchell DO patient relations specialist 07/26/16 Francesco Merritt MD [facility] [place] [id number] [place] [address] Family Medicine - Sports Medicine 12/14/18 Gabe Carl MD [address] [place] [place] [address] [place] [address] Assigned PCP 05/09/21
--- OUTSIDE RECORDS SUMMARY | 2024-02-09 07:29 | XMS_ITS | Encounter Summary ---
Author Organization [facility] Address [address] [place] [address] Care Team Providers Care Accounting Clerk Name Role Phone DarwinMadelaine patel Unavailable [phone] Francesco Merritt MD Unavailable [phone] Gabe Carl MD Unavailable [facility] Primary Care Provider Encounter Details Date [...] documented as of this encounter Care Teams Accounting Clerk Relationship Specialty Start Date End Date [address] [phone] PCP - General 11/28/23 Madelaine Mitchell DO chucking and sawing machine operator 07/26/16 Francesco Merritt MD [facility] [facility] [address] [place] [address] Family Medicine - Sports Medicine 12/14/18 Gabe Carl MD [address] [facility] [address] [id number] Assigned PCP 05/09/21 documented as of this encounter
--- OUTSIDE RECORDS SUMMARY | 2024-02-09 07:29 | XMS_ITS | Clinical Summary ---
Author Organization [place] Address [address] [place] [address] Care Team Providers Care Plastic Extruding Machine Operator Name Role Phone Madelaine Mitchell DO Unavailable Francesco Merritt MD Unavailable [phone] Gabe Carl MD Unavailable [phone] [place] [address] Primary Care Provider Allergies Active Allergy Reactions [...] (ASTELIN) 0.1 % nasal sprayIndications :Post-nasal drip [place] 1 spray into both nostrils 2 times daily 1 Bottle 11 10/23/19 19 Active metFORMIN (GLUCOPHAGE-XR) 500 MG 24 hr tabletIndication s:PCOS (polycystic ovarian syndrome) TAKE 4 TABLETS BY MOUTH DAILY 360 tablet 1 04/08/20 19 Active nystatin (MYCOSTATIN) 301997 UNIT/ML suspension TAKE 6 ML BY MOUTH FOUR TIMES A DAY SWISH IN MOUTH AND SWALLOW. KEEP IN MOUTH LONG POSSIBLE PRIOR TO SWALLOWING. 10/16/20 20 Active letrozole (FEMARA) 2.5 MG tabletIndication s:Anovulation Take 1 tablet (2.5 mg) by mouth See Admin Instructions 35 tablet 03/18/20 Active Additional Information Patient not taking.Reported on 10/24/2022 methocarbamol (ROBAXIN) 500 MG tabletIndication s:Trapezius muscle spasm,Left arm numbness Take 1-2 tablets (500-1,000 mg) by mouth 4 times daily as needed for muscle spasms 20 tablet 04/30/19 Active Additional Information Patient not taking.Reported on [...] times daily for 10 days. 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 Plan colp 04/25/18 [place] - no visible lesions, no bx. Plan pap due in 1 year pap from previous pap 03/13/19 Pap reminder letter sent. ([facility]) 03/14/19 TE states pt is 25 weeks (ASAD 06/27/19), no appts in chart. ([facility]) CCT tracking Headache 12/16/2016 PCOS (polycystic [...] Date Type Department Care Team Description 02/08/2024 8:45 AM CDT Office Visit [facility] [address] [place] [address] Madelaine Mitchell DO Malignant neoplasm of lung, unspecified laterality, unspecified part of lung (H) (Primary Dx); Pituitary adenoma (H); Alcohol use disorder; History of benzodiazepine use 02/08/2024 Travel 01/30/2024 MyC Medical Advice [facility] [address] [place] [address] Madelaine Mitchell DO 01/11/2024 Telephone [facility] [address] [place] [address] Madelaine Mitchell DO 01/05/2024 12:29 AM CDT - 01/05/2024 2:46 AM CDT Emergency [facility] Emergency Dept [address] [place] [address] Simone Kumar MD Alcohol withdrawal, uncomplicated (H) Discharge Disposition: Home or Self Care 01/05/2024 Travel 01/03/2024 12:57 AM CDT - 01/03/2024 4:39 AM CDT [facility] Emergency Dept [address] [place] [address] Angie Levi DO Alcohol dependence with uncomplicated withdrawal (H); Alcohol-induced acute pancreatitis without infection or necrosis; Nausea and vomiting, unspecified vomiting type; Benzodiazepine misuse Discharge Disposition: Home or Self Care 01/03/2024 Travel 11/28/2023 2:03 PM CDT - 11/28/2023 5:34 PM CDT [facility] Emergency Dept [address] [place] [address] Matt Clements MD Anxiety reaction; Benzodiazepine withdrawal [...] 02/08/2024 8:38 AM CDT Plan of Treatment Health Maintenance [...] TYPES DNA CERVICAL Routine 03/28/2018 9:20 AM MEDICINE ASSISTANT PCOS (polycystic ovarian syndrome) PAP IMAGED THIN LAYER SCREEN Routine 03/28/2018 9:09 AM MEDICINE ASSISTANT Encounter for general adult medical examination with abnormal findings HIV ANTIGEN ANTIBODY COMBO Routine 05/05/2016 9:51 AM MEDICINE ASSISTANT test positive from Last 3 Months or [...] - BLOOD ORDERABLES Final Result RH LABORATORY [facility] Acute Care Lab [address] Lab (1st floor, no room number) [place] [address], [facility] * (ABNORMAL) Basic metabolic panel (01/05/2024 1:38 AM CDT) Only the most recent of2 resultswithin the time period is included. Sodium 140 135 - 145 mmol/L 01/05/2024 2:10 AM CDT [facility] LABORATORY Potassium 3.9 3.4 - 5.3 mmol/L 01/05/2024 2:10 AM CDT RH LABORATORY Chloride 102 98 - [...] LAB - BLOOD ORDERABLES Final Result LABORATORY [facility] Acute Care Lab [address] Lab (1st floor, no room number) [place] [address], [facility] * (ABNORMAL) UA with Microscopic reflex [...] 01/05/2024 2:04 AM CDT RH LABORATORY Specific [place] Urine 1.011 1.003 - 1.035 01/05/2024 2:04 [...] LAB - URINE ORDERABLES Final Result LABORATORY [facility] Acute Care Lab [address] Lab (1st floor, no room number) [place] [address], [facility] * Urine Culture (01/05/2024 1:28 AM [...] ORDERABLE S Final Result UU IDD LABORATORY [facility] Inf. Diseases Diag. Lab [address] [facility], Room [address] [place], [place] [id number] * EKG 12-lead, tracing only (01/05/2024 1:13 AM CDT) Only the most recent of3 resultswithin the time period is included. Systolic Blood Pressure mmHg RADIOLOGY RESULTS Diastolic Blood Pressure mmHg RADIOLOGY RESULTS Ventricular Rate 52 BPM RAD IOLOGY RESULTS Atrial Rate 52 BPM RADIOLOG Y RESULTS [place] Interval 160 ms RADIOLOG Y RESULTS QRS Duration 86 ms RADIOLO GY RESULTS QT 446 ms RADIOLOGY RESULTS QTc 414 ms RADIOLOGY RESULTS P [place] 37 degrees RADIOLOGY RESULTS R AXIS 21 degrees RADIOLOGY RESULTS T [place] 13 degrees RADIOLOGY RESULTS Interpretation ECG Sinus bradycardia with sinus arrhythmia Cannot rule out Anterior infarct , age undetermined Abnormal ECG When compared with ECG of 03-Jan-2024 02:23, Vent. rate has decreased by ??41 bpm Confirmed by - EMERGENCY ROOM, PHYSICIAN ([id number]), school photograph editor CROW MOTTA ([id number]) on 01/05/2024 6:42:05 AM RADIOLOGY RESULTS 01/05/2024 [...] AM CDT EXAM: US ABDOMEN LIMITED LOCATION: [facility] DATE: 01/03/2024 INDICATION: upper abdominal [...] - 01/03/2024 EXAM: US ABDOMEN LIMITED LOCATION: [facility] DATE: 01/03/2024 INDICATION: upper abdominal [...] steatosis. 2. Normal gallbladder. Angie Levi DO [facility] US ORDERABLES Final Re sult * (ABNORMAL) Lipase (01/03/2024 1:34 AM CDT) Lipase 85(H) 13 - 60 U/L 01/03/2024 2:01 AM CDT LABORATORY Blood BLOOD SPECIMEN / Unknown Venipuncture / Unknown 01/03/2024 1:34 AM CDT 01/03/2024 1:42 AM CDT Angie Levi DO LAB - BLOOD ORDERABLES Fin al Result LABORATORY [facility] Lab [address] Lab (1st floor, no room number) [place] [id number] [place] [address] * HCG QUALitative (blood) (01/03/2024 1:34 AM CDT) Only the most recent of2 resultswithin the time period is included. Pathologist [facility] hCG Serum Qualitative Negative Negative [place] 01/03/2024 2:09 AM CDT LABORATORY Comment:This test is for scr eening purposes. Results should be interpreted along with the clinical picture. Confirmation testing is available if warranted by ordering [id number], HCG Quantitative . Blood BLOOD SPECIMEN / Unknown Venipuncture / Unknown 01/03/2024 1:34 AM CDT 01/03/2024 1:42 AM CDT Angie Levi DO LAB - BLOOD ORDERABLES Fin al Result LABORATORY [facility] [address] Lab (1st floor, no room number) [place] [address] * (ABNORMAL) Comprehensive metabolic panel (01/03/2024 1:34 AM CDT) Pathologist [facility] Sodium 142 135 - 145 mmol/L 01/03/2024 2:01 AM CDT LABORATORY Potassium 3.5 3.4 - 5.3 mmol/L 01/03/2024 2:01 AM CDT RH LABORATORY Carbon Dioxide (CO2) 21(L) 22 - 29 mmol/L 01/03/2024 2:01 AM CDT RH LABORATORY Anion Gap 21(H) 7 - 15 mmol/L 01/03/2024 2:01 AM CDT RH LABORATORY Urea Nitrogen 9.2 6.0 - 20.0 mg/dL 01/03/2024 2:01 AM CDT RH LABORATORY Creatinine 0.71 0.51 - 0.95 mg/dL 01/03/2024 2:01 AM CDT RH LABORATORY GFR Estimate >90 >60 mL/min/1.7 3m2 01/03/2024 2:01 AM CDT RH LABORATORY Comment:eGFR calculated usin 2020 [...] ORDERABLES Fin al Result Performing Organization Address [facility]/ZIP Co de Phone Number LABORATORY [facility] Lab [address] Lab (1st floor, no room number) [address] [place] [address] * (ABNORMAL) Alcohol level blood (01/03/2024 1:34 AM CDT) Alcohol ethyl 0.08(H) <=0.01 g/dL 01/03/2024 2:01 AM CDT LABORATORY Blood BLOOD SPECIMEN / Unknown Venipuncture / Unknown 01/03/2024 1:34 AM CDT 01/03/2024 1:42 AM CDT Angie Levi DO LAB - BLOOD ORDERABLES Fin al Result Performing Organization Address [facility]/ZIP Co de Phone Number LABORATORY [facility] Lab [address] Lab (1st floor, no room number) [place] [phone] * (ABNORMAL) Glucose by meter (01/03/2024 1:30 AM CDT) GLUCOSE BY METER POCT 123(H) 70 - 99 mg/dL 01/03/2024 1:38 AM CDT LABORATORY POC Blood, Capillary BLOOD SPECIMEN / Unknown 01/03/2024 1:30 AM CDT 01/03/2024 1:38 AM CDT Angie Levi DO LAB - BEAKER POCT Final Re sult Performing Organization Address City/[facility]/ZIP Co de Phone Number LABORATORY POC [facility] Lab [address] Lab (1st floor, no room number) [address] * CTA Head Neck w Contrast [...] reconstruction technique CHRIS BOONE MD SYSTEM ID: ??[id number] Narrative 11/28/2023 4:[address] ANGIOGRAM [...] reconstruction technique CHRIS BOONE MD SYSTEM ID: [id number] Matt Clements MD IMG CT ORDERABLES Final Result * CT Head [...] reconstruction technique CHRIS BOONE MD SYSTEM ID: ??[id number] Narrative 11/28/2023 4:[address] OF [...] reconstruction technique CHRIS BOONE MD SYSTEM ID: [id number] Matt Clements MD IMG CT ORDERABLES Final Result * Extra Red Top Tube (11/28/2023 12:57 PM CDT) Hold Specimen [facility] 11/28/2023 2:16 PM CDT LABORATORY Blood STRUCTURE OF LEFT UPPER LIMB / Unknown Venipuncture / Unknown 11/28/2023 12:57 PM CDT 11/28/2023 1:10 PM CDT Matt Clements MD LAB - BLOOD ORDERABLES Final Result [facility] Lab [address] Lab (1st floor, no room number) [address] * Extra Blue Top Tube (11/28/2023 12:57 PM CDT) Hold Specimen [facility] 11/28/2023 2:16 PM CDT LABORATORY Blood STRUCTURE OF LEFT UPPER LIMB / Unknown Venipuncture / Unknown 11/28/2023 12:57 PM CDT 11/28/2023 1:10 PM CDT Matt Clements MD LAB - BLOOD ORDERABLES Final Result [facility] Lab [address] Lab (1st floor, no room number) [address] * Troponin T, High Sensitivity (11/28/2023 12:57 PM CDT) [facility] Troponin T, High Sensitivity <6 <=14 ng/L [...] BLOOD ORDERABLES Final Result Performing Organization Address City/[facility]/ZIP Co de Phone Number [facility] Lab [address] Lab (1st floor, no room number) [place] [phone] * TSH with free T4 reflex (11/28/2023 12:57 PM CDT) TSH 0.42 0.30 - 4.20 uIU/mL 11/28/2023 2:42 PM CDT LABORATORY Blood STRUCTURE OF LEFT UPPER LIMB / Unknown Venipuncture / Unknown 11/28/2023 12:57 PM CDT 11/28/2023 1:10 PM CDT Matt Clements MD LAB - BLOOD ORDERABLES Final Result [facility] Acute Care Lab [address] Lab (1st floor, no room number) [place] [address] * Magnesium (11/28/2023 12:57 PM CDT) Magnesium 2.0 1.7 - 2.3 mg/dL 11/28/2023 2:31 PM CDT LABORATORY Blood STRUCTURE OF LEFT UPPER LIMB / Unknown Venipuncture / Unknown 11/28/2023 12:57 PM CDT 11/28/2023 1:10 PM CDT us Matt Clements MD LAB - BLOOD ORDERABLES Final Result [facility] Acute Care Lab [address] Lab (1st floor, no room number) [place] [address], [facility] * (ABNORMAL) HPV High Risk Types DNA Cervical (03/28/2018 9:20 AM MEDICINE ASSISTANT) HPV Source [facility] 04/03/2018 7:38 AM MEDICINE ASSISTANT [facility] HPV 16 DNA Negative NEG^Nega tive 04/03/2018 4:18 PM MEDICINE ASSISTANT [facility] HPV 18 DNA Negative NEG^Nega tive 04/03/2018 4:18 PM MEDICINE ASSISTANT [facility] Other HR HPV Positive(A) NEG^Nega tive 04/03/2018 4:18 PM MEDICINE ASSISTANT [facility] Final Diagnosis This patient's sample is positive for other HR HPV DNA (types 31, 33, 35, 39, 45, 51, 52, 56, 58, 59, 66 or 68), not HPV 16 or HPV 18 DNA. This result requires clinical correlation with concurrent cytology findings. 04/03/2018 4:18 PM MEDICINE ASSISTANT [facility] Comment: This test was developed and its performance characteristics determined by the [facility], Molecular Diagnostics Laboratory. It has not been [...] Specimen Description Cervical Cells 04/03/2018 7:38 AM MEDICINE ASSISTANT [facility] Comment:[id number] 03/28/2018 9:20 AM MEDICINE ASSISTANT 03/28/2018 2:56 PM MEDICINE ASSISTANT us Tristen Jiang SITE HEAD ROVING TECHNICIAN LAB - BLOOD ORDERABL ES Final Result [facility] [address] [place] [address] * (ABNORMAL) Pap imaged thin layer screen reflex to HPV if ASCUS - recommend age 25 - 29 (03/28/2018 9:09 AM MEDICINE ASSISTANT) PAP ASC-US(A) JOSE JUAN Singh Report Patient Name: MADI MOSS MR#: [id number] Specimen #: [id number] Collected: 03/28/2018 Received: 03/29/2018 Reported: 04/02/2018 14:41 [...] Carmine Stevens M.D. Processed and screened at [facility], [facility] CLINICAL HISTORY: LMP: 03/05/2018 A previous normal pap Date of Last Pap: 01/01/2015, Papanicolaou Test Limitations: ??Cervical cytology is a screening test with limited sensitivity; regular screening is critical for cancer prevention; Pap tests are primarily effective for the diagnosis/preventi on of squamous cell carcinoma, not adenocarcinomas or other cancers. TESTING LAB LOCATION: [facility] [address] [place], [place] ??[address] COLLECTION SITE: Client: ??[facility] Location: RIIM (R) [facility] Cytologic material (specimen) 03/28/2018 9:09 AM MEDICINE ASSISTANT 03/29/2018 11:25 AM MEDICINE ASSISTANT us Tristen Jiang SITE HEAD ROVING TECHNICIAN LAB - [facility] SPECIMEN Final Result [facility] * HIV Antigen Antibody Combo (05/05/2016 9:51 AM MEDICINE ASSISTANT) HIV Antigen Antibody Combo Nonreactive HIV-1 p24 Ag & HIV-1/HIV-2 Ab Not Detected NR [facility] Blood specimen (specimen) 05/05/2016 9:51 AM MEDICINE ASSISTANT 05/05/2016 9:56 AM MEDICINE ASSISTANT us Madelaine Mitchell DO LAB - BLOOD ORDERABLES Fi nal Result Performing Organization Address City/[facility]/ZIP Co de Phone Number [address] from Last 3 Months or Most Recently Relevant to Health Maintenance Insurance [facility] OUT OF STATE BCBS OUT OF STATE BCBS OUT OF STATE Care Teams Plastic Extruding Machine Operator Relationship Specialty Start Date End Date [facility], [address] [address] PCP - General 11/28/23 Madelaine Mitchell DO asset protection professional 07/26/16 Francesco Merritt MD [facility] [place] [id number] [place] [address] Family Medicine - Sports Medicine 12/14/18 Gabe Carl MD [facility] [facility] [place] [address] Assigned PCP 05/09/21
--- OUTSIDE RECORDS SUMMARY | 2024-02-09 07:29 | XMS_ITS | Encounter Summary ---
Author Organization [place] Address [address] [place] [address]. [place] [address] Care Team Providers Care Field Crop I Farmworker Name Role Phone Madelaine Mitchell DO Unavailable Rosamaria Jones MD Primary Care Provider Francesco Merritt MD Unavailable [phone] Gabe Carl MD Unavailable [phone] Danielle Alcantar MD Unavailable [facility] Primary Care Provider Encounter Details Date Type Department Care Team (Late st Contact Info) Description 07/11/2021 MyC Medical Advice [facility] Women's [address] [place] [address] Madelaine Mitchell DO [address] [place] [address] Social History Tobacco Use Types Packs/Day Years Used Date Smoking Tobacco: Some Days Cigarettes Smokeless Tobacco: Never Comments:2 to 3 a day Alcohol Use Standard Drinks/Week Comments Yes 0 (1 standard drink = 0.6 oz pur e alcohol) PHQ-2 Answer Date Recorded PHQ-2 Score 1 04/30/2021 Comments No Sex and Gender Information Value [...] Depression Total Score: 10 022 9:03 AM PHYSICAL THERAPIST CENTER MANAGER documented as of this encounter Care Teams Field Crop I Farmworker Relationship Specialty Start Date End Date Rosamaria Jones MD [address] [facility] [address] [place] [address] PCP - General Internal Medicine 10/06/18 11/27/[address] [address] PCP - General 11/28/23 Madelanie Mitchell DO master control engineer 07/26/16 Francesco Merritt MD [facility] [address] [address] Family Medicine - Sports Medicine 12/14/18 Gabe Carl MD [address] [place] [address] Assigned PCP 05/09/21 Danielle Alcantar MD [address] [place] [address] Assigned Musculoskeletal Provider 07/18/21 02/03/23 documented as of this encounter
--- OUTSIDE RECORDS SUMMARY | 2024-02-09 07:29 | XMS_ITS | Encounter Summary ---
Author Organization [place] Address [address] [place] [address]. [place] [address] Care Team Providers Care Test Inspection Engineer Name Role Phone Madelaine Mitchell DO Unavailable Francesco Merritt MD Unavailable Gabe Carl MD Unavailable [phone] [place] [address] Primary Care Provider Reason for Visit * Reason Comments Withdrawal Encounter Details Date Type Department Care Team (Late st Contact Info) Description 01/03/2024 12:57 AM CDT - 01/03/2024 4:[address] [facility] Emergency Dept [address] [place] [address] [phone] Angie Levi DO [facility] [address] [place] [address] Alcohol dependence with uncomplicated withdrawal (H); Alcohol-induced [...] Care Everywhere. * Alcohol Withdrawal: General Info (Zimbabwean) documented in this encounter Medications at Time of Discharge azelastine (ASTELIN) 0.1 % nasal sprayIndications: Post-nasal drip [place] 1 spray into both nostrils 2 times [...] daily metFORMIN (GLUCOPHAGE-XR) 500 MG 24 hr tabletIndications :PCOS (polycystic ovarian syndrome) TAKE 4 TABLETS BY MOUTH DAILY 360 tablet 1 04/08/2019 methocarbamol (ROBAXIN) 500 MG tabletIndications :Trapezius muscle spasm,Left arm numbness Take 1-2 tablets (500-1,000 mg) by mouth 4 times daily as needed for muscle spasms 20 tablet 04/30/2021 nystatin (MYCOSTATIN) 439525 UNIT/ML suspension TAKE 6 ML BY MOUTH [...] on stable condition. A&Ox4. Ambulatory. * Angie Levi, DO - 01/03/2024 1:28 AM CDT Emergency [...] way to a medical detox program in [place] today though developed increasing nonbloody vomiting as [...] methocarbamol (ROBAXIN) 500 MG tablet nystatin (MYCOSTATIN) [id number] UNIT/ML suspension oxyCODONE (ROXICODONE) 5 MG tablet [...] Pressure Ventricular Rate 93 Atrial Rate 93 WI Interval 152 QRS Duration 78 QT 372 QTc 462 P [place] 62 R AXIS 44 T [place] 30 Interpretation ECG Sinus rhythm Normal ECG [...] Documentation None Medical Decision Making / Diagnosis [facility] Diagnoses: None MIPS None MDM Neda [...] stating that she plans to go to [place] for her formal detox program. In the [...] AM CDT EXAM: US ABDOMEN LIMITED LOCATION: [facility] DATE: 01/03/2024 INDICATION: upper abdominal pain [...] - 01/03/2024 EXAM: US ABDOMEN LIMITED LOCATION: [facility] DATE: 01/03/2024 INDICATION: upper abdominal pain [...] IMG US ORDERABLES Final Re sult * EKG 12-lead, tracing only (01/03/2024 2:23 AM CDT) Systolic Blood Pressure mmHg RADIOLOGY RESULTS Diastolic Blood Pressure mmHg RADIOLOGY RESULTS Ventricular Rate 93 BPM RAD IOLOGY RESULTS Atrial Rate 93 BPM RADIOLOG Y RESULTS WI Interval 152 ms RADIOLOG Y RESULTS QRS Duration 78 ms RADIOLO GY RESULTS QT 372 ms RADIOLOGY RESULTS QTc 462 ms RADIOLOGY RESULTS P [place] 62 degrees RADIOLOGY RESULTS R AXIS 44 degrees RADIOLOGY RESULTS T [place] 30 degrees RADIOLOGY RESULTS Interpretation ECG Sinus rhythm Normal ECG When compared with ECG of 28-Nov-2023 12:43, No significant change was found Unconfirmed report - interpretation of this ECG is computer generated - see medical record for final interpretation Confirmed by - EMERGENCY ROOM, PHYSICIAN ([id number]), medical transcription editor YEISON LAU ([id number]) on 01/03/2024 6:46:06 AM RADIOLOGY RESULTS 01/03/2024 2:23 AM CDT 01/03/2024 6:46 AM CDT us Angie Levi DO ECG ORDERABLES Edited Res ult - Final RADIOLOGY RESULTS * (ABNORMAL) CBC with platelets [...] LAB - BLOOD ORDERABLES Fin al Result [facility] [address] Lab (1st floor, no room number) [place] [address] * HCG QUALitative (blood) (01/03/2024 1:34 AM CDT) hCG Serum Qualitative Negative Negative HERMILO 01/03/2024 2:09 AM CDT [facility] Comment:This test is for scr eening purposes. Results should be interpreted along with the clinical picture. Confirmation testing is available if warranted by ordering [id number], HCG Quantitative . Blood BLOOD SPECIMEN / Unknown Venipuncture / Unknown 01/03/2024 1:34 AM CDT 01/03/2024 1:42 AM CDT Angie Levi DO LAB - BLOOD ORDERABLES Fin al Result [facility] Acute Care Lab [address] Lab (1st floor, no room number) [address] * (ABNORMAL) Alcohol level blood (01/03/2024 1:34 AM CDT) Pathologist [facility] Alcohol ethyl 0.08(H) <=0.01 g/dL 01/03/2024 2:01 AM CDT LABORATORY Blood BLOOD SPECIMEN / Unknown Venipuncture / Unknown 01/03/2024 1:34 AM CDT 01/03/2024 1:42 AM CDT Angie Levi DO LAB - BLOOD ORDERABLES Fin al Result [facility] Lab [address] [facility] Lab (1st floor, no room number) [address] * (ABNORMAL) Lipase (01/03/2024 1:34 AM CDT) [facility] Lipase 85(H) 13 - 60 U/L 01/03/2024 2:01 AM CDT LABORATORY Blood BLOOD SPECIMEN / Unknown Venipuncture / Unknown 01/03/2024 1:34 AM CDT 01/03/2024 1:42 AM CDT Angie Levi DO LAB - BLOOD ORDERABLES Fin al Result [facility] Lab [address] [facility] Lab (1st floor, no room number) [address] * (ABNORMAL) Comprehensive metabolic panel (01/03/2024 1:34 AM CDT) [facility] Sodium 142 135 - 145 mmol/L 01/03/2024 [...] 98 - 107 mmol/L 01/03/2024 2:01 AM T LABORATORY Glucose 119(H) 70 - 99 mg/dL 01/03/2024 2:01 AM CDT LABORATORY Alkaline Phosphatase 90 40 - 150 U/L 01/03/2024 2:01 AM CDT LABORATORY AST 25 0 - 45 U/L 01/03/2024 2:01 AM CDT LABORATORY ALT 28 0 - 50 U/L 01/03/2024 2:01 AM T LABORATORY Protein Total 8.2 6.4 - 8.3 g/dL 01/03/2024 2:01 AM T LABORATORY Albumin 5.3(H) 3.5 - 5.2 g/dL 01/03/2024 2:01 AM T LABORATORY Bilirubin Total 0.2 <=1.2 mg/dL 01/03/2024 2:01 AM T LABORATORY Blood BLOOD SPECIMEN / Unknown Venipuncture / Unknown 01/03/2024 1:34 AM CDT 01/03/2024 1:42 AM CDT us Angie Levi DO LAB - BLOOD ORDERABLES Fin al Result LABORATORY [facility] Acute Care Lab [address] Lab (1st floor, no room number) [place] [address], [facility] * (ABNORMAL) Glucose by meter (01/03/2024 1:30 AM CDT) GLUCOSE BY METER POCT 123(H) 70 - 99 mg/dL 01/03/2024 1:38 AM CDT [facility] POC Blood, Capillary BLOOD SPECIMEN / Unknown 01/03/2024 1:30 AM CDT 01/03/2024 1:38 AM CDT us Angie Levi DO LAB - BEAKER POCT Final Re sult [facility] POC [facility] Acute Care Lab [address] [employer] Lab (1st floor, no room number) [place] [address], [facility] documented in this encounter Visit Diagnoses Diagnosis [...] carefully for 1 hour after each dose. 0328 ($Given - Provi vidhi: Soco Pace RN) LORazepam (ATIVAN) injection 2 mg (COMPLETED) 2 mg, Intravenous, ONCE, On Mon01/03/24 at 0125, For 1 dose, IV Route: Dilute with equal volume NS prior to use. This drug may cause significant respiratory depression. Monitor respiratory status and vital signs carefully for 1 hour after each dose. 0132 ($Given - Provi vidhi: Jorge Woodson RN) ondansetron (ZOFRAN) injection 4 mg (COMPLETED) 4 mg, Intravenous, ONCE, Administer over 2-5 Minutes, On Mon01/03/24 at 0125, For 1 dose 0132 ($Given - Provi vidhi: Jorge Woodson RN) sodium chloride 0.9% BOLUS 1,000 mL (COMPLETED) Intravenous, 1,000 mL, ONCE, at 1,000 mL/hr, Administer over 1 Hours, On Mon01/03/24 at 0125, For 1 dose 0132 ($New Bag - Pro vider: Jorge Woodson [...] documented as of this encounter Care Teams Test Inspection Engineer Relationship Specialty Start Date End Date [facility], [address] [address] PCP - General 11/28/23 Madelaine Mitchell DO shuttler 07/26/16 Francesco Merritt MD [facility] [address] [place] [address] Family Medicine - Sports Medicine 12/14/18 Gabe Carl MD [address] [place] [address] VINICIUS MANNING [id number] Assigned PCP 05/09/21 documented as of this encounter
--- OUTSIDE RECORDS SUMMARY | 2024-02-09 07:29 | XMS_ITS | Encounter Summary ---
Author Organization [facility] Address [address] [place] [address] Care Team Providers Care Life Trainer Name Role Phone Madelaine Mitchell DO Unavailable [phone] Francesco Merritt MD Unavailable [phone] Gabe Carl MD Unavailable [phone] [place] [address] Primary Care Provider Reason for Referral * Consultation (Routine: Next available opening) - Pending Review Specialty Diagnoses / Procedures Referred By Darryl sharma Referred To Contact Diagnoses Malignant neoplasm of lung, unspecified laterality, unspecified part of lung (H) Pituitary adenoma (H) Alcohol use disorder History of benzodiazepine use Madelaine Mitchell DO [address] [place] [address] Phone: tel: fax: [facility] [address] [place] [address] Phone: tel: fax: Referral ID Status Reason Start Date Expiration Date V isits Requested Visits Authorized [id number] Pending Review 02/08/2024 02/07/2025 1 1 Question Answer Preferred Location: [facility] Indication: history of lung cancer resected in June 2023, pituitary adenoma LON KING Consultation (unrelated to Ultrasound findings): Yes Inflammatory Bowel Disease Clinic: Joint MFM and GI Consultation: No Chronic Kidney Disease: Joint MFM and Nephrology Consultation No Cardio-Obstetrics: Joint MFM and Cardiology Consultation No Genetic Counseling Consultation: No fax NA Comments >> Patient may proceed with recommendations for further testing as directed by the Maternal Medicine Specialist >> Please be aware that coverage of these services is subject to the terms and limitations of your health insurance plan. Call member services at your health plan with any benefit or coverage questions. * Consultation (Routine: Next available opening) - Pending Review Specialty Diagnoses / Procedures Referred By Contac t Referred To Contact registered dental hygienist Diagnoses Malignant neoplasm of lung, unspecified laterality, unspecified part of lung (H) Pituitary adenoma (H) Madelaine Mitchell DO [address] [facility] [address] [place] [address] Phone: tel: fax: Referral ID Status Reason Start Date Expiration Date V isits Requested Visits Authorized [id number] Pending Review 02/08/2024 02/07/2025 1 1 Question Answer Reason for Referral: Infertility Have orders been placed in Epic (imaging, labs, etc.) that need to be completed prior to the patient's consult? No Scheduling Instructions: [employer] [facility] will call you to coordinate your care as prescribed by your provider. If you don't hear from a underwriting account representative within 2 business days, please call . Comments Please be aware that coverage of these services is subject to the terms and limitations of your health insurance plan. Call member services at your health plan with any benefit or coverage questions. [facility] [phone], [place] [address] Reproductive Medicine and infertility [address] CCRM: [address] [facility] [address] [address] [employer] will call you to coordinate your care as prescribed by your provider. If you don't hear from a underwriting account representative within 2 business days, please call . Reason for Visit * Reason Comments Fertility Encounter Details Date Type Department Care Team (Late st Contact Info) Description 02/08/2024 8:45 AM CDT Office Visit [facility] [address] [place] [address] Madelaine Mitchell DO [address] [place] [address] Malignant neoplasm of lung, unspecified laterality, unspecified part of lung (H) (Primary Dx); Pituitary adenoma (H); Alcohol use disorder; History of benzodiazepine use Social History Tobacco Use Types Packs/Day Years [...] Pressure 112/70 02/08/2024 8:38 AM CDT Pulse - - Temperature - - Respiratory Rate - - Oxygen Saturation - - Inhaled Oxygen Concentration - - Weight 92.1 kg (203 lb) 02/08/2024 8:38 AM CDT Height 170.2 cm (5' 7) 02/08/2024 8:38 AM CDT Body Mass Index 31.79 02/08/2024 8:38 AM CDT documented in this encounter Progress Notes * Madelaine Mitchell DO - 02/08/2024 8:45 AM CDT SUBJECTIVE: Neda Moss is an 33 year old woman who presents for gynecology consult for PCOS, infertility, treated with letrozole. [facility], but would Like a prescription for letrozole to get . Hx of pituitary tumor, previously saw endocrinology who wanted to re-scan her in 1 year. 2 months prior and had a head scan showing increase in pituitary size from 2 mm to 6 mm in diameter, Pituitary adenoma Alcohol use disorder with continued use, last use of alcohol with ER visits treated For alcohol withdrawal. Had lung cancer right lung cancer: stage 1a- scan in 1 year Had negative lymph nodes. Since June -December,she states she was using alcohol 4-6 drinks daily. In the ER she stated that she was using 8-12 drinks daily. Date of sobriety was 01/03/2024 Was treated in ER Going to twice daily and attempted to go to [place] for inpatient Care, but was unable to go on the plane due to withdrawal symptoms. She states noone was affected by my alcohol use and I only needed It to sleep. She also stated having cancer in June is why she started Drinking heavily. History of benzodiazepine dependence, was using 2 -7 mg daily for a year, And was seen in ER in November with withdrawal symptoms. Hx of right breast lump: repeat scan ordered, has been a stable area No LMP recorded. (Menstrual status: Irregular Periods). Amenorrheic Current contraception: none History of abnormal Pap smear: No Family history of uterine or ovarian cancer: No History of abnormal mammogram: No Family history of breast cancer: No Past Medical History: Diagnosis Date Abnormal Pap smear of cervix 03/28/2018 See problem list Cervical high risk HPV (human papillomavirus) test positive 03/28/2018 see problem list Frequent UTI Gastritis 2014 EGD: erosive gastritis History of colposcopy 04/25/2018 see problem list Major depression 2013 PCOS (polycystic ovarian syndrome) Family History Problem Relation Age of Onset Family History Negative Mother Family History Negative Father Cancer Paternal Grandfather lung Past Surgical History: Procedure Laterality Date COLONOSCOPY 2014 HC TOOTH EXTRACTION W/FORCEP KNEE SURGERY LASIK BILATERAL 2009 OPEN REDUCTION INTERNAL FIXATION PATELLA Left 06/28/2015 Procedure: OPEN REDUCTION INTERNAL FIXATION PATELLA; Surgeon: Mina Roemro MD; Location: [facility] OR UPPER GI ENDOSCOPY 2014 erosive gastritis Current Outpatient Medications Medication Sig Dispense Refill azelastine (ASTELIN) 0.1 % nasal spray [place] 1 spray into both nostrils 2 times daily 1 Bottle 11 hydrOXYzine (ATARAX) 25 MG tablet Take 25 mg by mouth 3 times daily as needed for itching. LORazepam (ATIVAN) 0.5 MG tablet Take 0.5 mg by mouth 2 times daily as needed for anxiety. metFORMIN (GLUCOPHAGE-XR) 500 MG 24 hr tablet TAKE 4 TABLETS BY MOUTH DAILY 360 tablet 1 Vit-Fe Fumarate-FA ( MULTIVITAMIN PLUS IRON) 27-0.8 MG TABS Take 1 tablet by mouthdaily. diazepam (VALIUM) 2 MG tablet 1 TABLET BY MOUTH NIGHTLY FOR 14 NIGHTS, THEN DISCONTINUE. (Patient not taking: Reported on 02/08/2024) letrozole (FEMARA) 2.5 MG tablet Take 1 tablet (2.5 mg) by mouth See Admin Instructions (Patient not taking: Reported on 10/24/2022) 35 tablet 0 loratadine (CLARITIN) 10 MG tablet Take 10 mg by mouth daily (Patient not taking: Reported on 02/08/2024) methocarbamol (ROBAXIN) 500 MG tablet Take 1-2 tablets (500-1,000 mg) by mouth 4 times daily as needed for muscle spasms (Patient not taking: Reported on 02/08/2024) 20 tablet 0 nystatin (MYCOSTATIN) [id number] UNIT/ML suspension TAKE 6 ML BY MOUTH FOUR TIMES A DAY SWISH IN MOUTH AND SWALLOW. KEEP IN MOUTH LONG POSSIBLE PRIOR TO SWALLOWING. (Patient not taking: Reported on02/08/2024) No current facility-administered medications for this visit. Allergies Allergen Reactions Polytrim [Polymyxin B-Trimethoprim] Swelling in eye Sulfa Antibiotics Swelling Social History Tobacco Use Smoking status: Former Smokeless tobacco: Never Tobacco comments: 2 to 3 a day Substance Use Topics Alcohol use: Yes Alcohol/week: 0.0 standard drinks of alcohol Review Of Systems Ears/Nose/Throat: negative Respiratory: No shortness of breath, dyspnea on exertion, cough, or hemoptysis Cardiovascular: negative Gastrointestinal: negative Genitourinary: See HPI Constitutional, HEENT, cardiovascular, pulmonary, GI, , musculoskeletal, neuro, skin, endocrine and psych systems are negative, except as otherwise noted. OBJECTIVE: BP 112/70 Ht 1.702 m (5' 7) Wt 92.1 kg (203 lb) BMI 31.79 kg/m?? General appearance: healthy, alert, and no distress Skin: Skin color, texture, turgor normal. No rashes or lesions. Ears: negative Nose/Sinuses: Nares normal. Septum midline. Mucosa normal. No drainage or sinus tenderness. Oropharynx: Lips, mucosa, and tongue normal. Teeth and gums normal. Neck: Neck supple. No adenopathy. Thyroid symmetric, normal size,, Carotids without bruits. Lungs: negative, Percussion normal. Good diaphragmatic excursion. Lungs clear Heart: negative, PMI normal. No lifts, heaves, or thrills. RRR. No murmurs, clicks gallops or rub ASSESSMENT: Neda Moss is an 33 year old woman who presents for gynecology consult for PCOS, infertility, treated with letrozole. [facility], but would Like a prescription for letrozole to get . Hx of pituitary tumor, previously saw endocrinology who wanted to re-scan her in 1 year. 2 months prior and had a head scan showing increase in pituitary size from 2 mm to 6 mm in diameter, Pituitary adenoma Alcohol use disorder with continued use, last use of alcohol with ER visits treated For alcohol withdrawal. Had lung cancer right lung cancer: stage 1a- scan in 1 year Had negative lymph nodes. Since June -December,she states she was using alcohol 4-6 drinks daily. In the ER she stated that she was using 8-12 drinks daily. Date of sobriety was 01/03/2024 Was treated in ER Going to twice daily and attempted to go [place] for inpatient Care, but was unable to go on the plane due to withdrawal symptoms. She states noone was affected by my alcohol use and I only needed It to sleep. She also stated having cancer in June is why she started Drinking heavily. History of benzodiazepine dependence, was using 2 -7 mg daily for a year, And was seen in ER in November with withdrawal symptoms. Hx of right breast lump: repeat scan ordered, has been a stable area PLAN: Dx: 1) Infertility, hx of PCOS: she would like a prescription for letrozole. She also has a recent history of lung cancer and a pituitary adenoma. Recommend first to see MFM for preconception counseling about her above two medical issues. She also has chemical dependency and up until 01/02 was drinking about 8-12 drinks daily. She may need further treatment for chemical dependency before starting care for infertility. Alcohol and benzodiazepine use would be detrimental to . I don't recommend letrozole at this time, I would recommend that she sees MFM to determine Her body's overall health, I recommend ELISE to evaluate the pituitary adenoma. 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 2) Chemical dependency: She began sobriety 01/03/24. She is doing twice daily AA visits. She has used benzodiazepines for a year and alcohol for 7 months and is newly sober, about 1 Month. She may need further chemical dependency help. Will follow 44 minutes spent on the date of the encounter doing chart review, review of outside records, reviewof test results, interpretation of tests, patient visit, and documentation Dr. Madelaine Mitchell DO Obstetrics and Gynecology [facility] documented in this encounter Nursing Notes * Ne Burgos LPN - 02/08/2024 8:45 AM CDT Chief Complaint Patient presents with Fertility Initial BP 112/70 Ht 1.702 m (5' 7) Wt 92.1 kg (203 lb) BMI 31.79 kg/m?? Estimated body massindex is 31.79 kg/m?? as calculated from the following: Height as of this encounter: 1.702 m (5' 7). Weight as of this encounter: 92.1 kg (203 lb). BP completed using cuff size: regular Questioned patient about current smoking habits. Pt. has never smoked. 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 Referral Referral Routine: Next available opening Malignant neoplasm of lung, unspecified laterality, unspecified part of lung (H) Pituitary adenoma (H) Expected: 02/08/2024 (Approximate), Expires: 02/07/2025 [facility] Referral - Preconception Referral Routine: Next available opening Malignant neoplasm of lung, unspecified laterality, unspecified part of lung (H) Pituitary adenoma (H) Alcohol use disorder History of benzodiazepine use Expected: 02/08/2024 (Approximate), Expires: 08/06/2024 documented as of this encounter Visit Diagnoses Diagnosis Malignant neoplasm of lung, unspecified laterality, unspecified part of lung (H)- Primary Pituitary adenoma (H) Benign neoplasm of pituitary gland and craniopharyngeal duct (pouch) Alcohol use disorder History of benzodiazepine use documented in this encounter Additional Health Concerns Assessment Noted Time PHQ-9 Depression Total Score: 21 023 10:16 AM CDT documented as of this encounter Care Teams Life Trainer Relationship Specialty Start Date End Date [facility], [address] [address] PCP - General 11/28/23 Madelaine Mitchell DO registered dental hygienist 07/26/16 Francesco Merritt MD [address] [place] [address] Family Medicine - Sports Medicine 12/14/18 Gabe Carl MD [address] [place] [address] [place] [address] Assigned PCP 05/09/21 documented as of this encounter
--- OUTSIDE RECORDS SUMMARY | 2024-02-09 07:29 | XMS_ITS | Encounter Summary ---
Author Organization [facility] Address [address] [place] [address] Care Team Providers Care Presentation Manager Name Role Phone DarwinMadelaine patel Unavailable [phone] Francesco Merritt MD Unavailable [phone] Gabe Carl MD Unavailable [phone] [facility] Primary Care Provider Encounter Details Date [...] documented as of this encounter Care Teams Presentation Manager Relationship Specialty Start Date End Date [address] [id number] PCP - General 11/28/23 Madelaine Mitchell DO fuel cell engineer 07/26/16 Francesco Merritt MD [facility] [address] [facility] [address] [place] [address] Family Medicine - Sports Medicine 12/14/18 Gabe Carl MD [address] [facility] VINICIUS MANNING [phone] Assigned PCP 05/09/21 documented as of this encounter
--- OUTSIDE RECORDS SUMMARY | 2024-02-09 07:29 | XMS_ITS | Encounter Summary ---
Author Organization [place] Address [address] [place] [address]. [place] [address] Care Team Providers Care Extruder Operator Name Role Phone Madelaine Mitchell Unavailable Francesco Merritt MD Unavailable Gabe Carl MD Unavailable [phone] [place] [address] Primary Care Provider Reason for Visit * Reason Comments Chest Pain Encounter Details Date Type Department Care Team (Late st Contact Info) Description 11/28/2023 2:03 PM CDT - 11/28/2023 5:34 PM CDT Emergency [facility] [address] [place] [address] [phone] Matt Clements MD [address] TH[place] [address] [place] [address] Anxiety reaction; Benzodiazepine withdrawal without complication (H) [...] (ASTELIN) 0.1 % nasal sprayIndications: Post-nasal drip [place] 1 spray into both nostrils 2 times [...] muscle spasms 20 tablet 04/30/2021 nystatin (MYCOSTATIN) [id number] UNIT/ML suspension TAKE 6 ML BY MOUTH FOUR TIMES A DAY SWISH IN MOUTH AND SWALLOW. KEEP IN MOUTH LONG POSSIBLE PRIOR TO SWALLOWING. 01/31/2020 Vit-Fe Fumarate-FA ( MULTIVITAMIN PLUS IRON) 27-0.8 MG TABS Take 1 tablet by mouth daily. BIOTIN PO 4 busPIRone (BUSPAR) 5 MG tabletIndications :Anxiety Take 1 tablet (5 mg) by mouth 2 times daily for 10 days, THEN 1.5 tablets (7.5 mg) 2 times daily for 10 days, THEN 2 tablets (10 mg) 2 times daily for 10 days. 90 tablet 04/30/2021 4 ibuprofen (ADVIL/MOTRIN) 200 MG tablet Take [...] help her sleep. Review of External Notes [place] notes reviewed from 12/14/2023. The patient is followed for pituitary adenoma. Past Medical History Medical History and Problem List Frequent UTI Gastritis Depression PCOS Anxiety Mononucleosis Shingles Carcinoid tumor of right lung Pre-diabetes Exercise-induced asthma Arthritis Medications Buspar Metformin Relafen [place] Flexeril Ativan Albuterol Ambien Robaxin Vistaril Roxicodone [...] Bilirubin Urine Negative Ketones Urine Negative Specific [place] Urine 1.017 Blood Urine Negative pH Urine [...] reconstruction technique CHRIS BOONE MD SYSTEM ID: [id number] CT Head w/o Contrast Final Result IMPRESSION: Normal head CT. Radiation dose for this scan was reduced using automated exposure control, adjustment of the mA and/or kV according to patient size, or iterative reconstruction technique CHRIS BOONE MD SYSTEM ID: [id number] EKG ECG taken at 1243, ECG read at 1415 Normal sinus rhythm No significant change as compared to prior, dated 09/15/22. Rate 70 bpm. AZ interval 156 ms. QRS duration 88 ms. [...] noted above. Medical Decision Making / Diagnosis AMBIKA Moss is a 33 year old female [...] Any # urogenital alanna, single or mixed [facility] Emergency Dept discharge antibiotic prescribed (If applicable): None Treatment recommendations per [facility] ED Lab Result Urine [...] reconstruction technique CHRIS BOONE MD SYSTEM ID: ??[id number] Narrative 11/28/2023 4:[address] ANGIOGRAM [...] reconstruction technique CHRIS BOONE MD SYSTEM ID: [id number] Matt Clements MD IMG CT ORDERABLES Final [...] reconstruction technique CHRIS BOONE MD SYSTEM ID: ??[id number] Narrative 11/28/2023 4:[address] OF [...] reconstruction technique CHRIS BOONE MD SYSTEM ID: [id number] Matt Clements MD IM CT ORDERABLES Final Result * Urine Culture (11/28/2023 2:43 PM CDT) Culture 50,000-100,000 CFU/mL Mixture of urogenital alanna 11/30/2023 1:11 PM CDT [facility] Urine MID-STREAM URINE SPECIMEN / Unknown Non-blood Collection / Unknown 11/28/2023 2:43 PM CDT 11/28/2023 3:13 PM CDT us Matt Clements MD LAB - MICRO GENERAL ORD ERABLES Final Result [facility] [employer] Inf. Diseases Diag. Lab [address] [facility], [address] [place] [address] * (ABNORMAL) UA with Microscopic reflex to Culture (11/28/2023 2:43 PM CDT) Color Urine Light Yellow Colorless, Straw, Light Yellow, Yellow 11/28/2023 3:17 PM CDT LABORATORY Appearance Urine Slightly Cloudy(A) Clear 11/28/2023 3:17 PM CDT LABORATORY Glucose Urine Negative Negative mg/dL 11/28/2023 3:17 PM CDT [facility] Bilirubin Urine Negative Negative 3:17 PM CDT [facility] Ketones Urine Negative Negative mg/dL 11/28/2023 3:17 PM CDT [facility] Specific [place] Urine 1.017 1.003 - 1.035 11/28/2023 3:17 [...] criteria Matt Clements MD LAB - URINE ORDERABLES Final Result Performing Organization Address City/[facility]/ZIP Co de Phone Number LABORATORY [facility] Care Lab [address] Lab (1st floor, no room number) [place] [phone] * HCG qualitative Blood (11/28/2023 12:57 PM CDT) hCG Serum Qualitative Negative Negative HERMILO 11/28/2023 2:33 PM CDT [facility] Comment:This test is for scr eening purposes. Results should be interpreted along with the clinical picture. Confirmation testing is available if warranted by ordering [id number], HCG Quantitative . Blood STRUCTURE OF LEFT UPPER LIMB / Unknown Venipuncture / Unknown 11/28/2023 12:57 PM CDT 11/28/2023 1:10 PM CDT Matt Clements MD LAB - BLOOD ORDERABLES Final Result LABORATORY [facility] Lab [address] Lab (1st floor, no room number) [place] [address] * TSH with free T4 reflex (11/28/2023 12:57 PM CDT) TSH 0.42 0.30 - 4.20 uIU/mL 11/28/2023 2:42 PM CDT LABORATORY Blood STRUCTURE OF LEFT UPPER LIMB / Unknown Venipuncture / Unknown 11/28/2023 12:57 PM CDT 11/28/2023 1:10 PM CDT Matt Clements MD LAB - BLOOD ORDERABLES Final Result [facility] Acute Care Lab [address] Lab (1st floor, no room number) [place] [address], [facility] * Magnesium (11/28/2023 12:57 PM CDT) Magnesium 2.0 1.7 - 2.3 mg/dL 11/28/2023 2:31 PM CDT [facility] Blood STRUCTURE OF LEFT UPPER LIMB / Unknown Venipuncture / Unknown 11/28/2023 12:57 PM CDT 11/28/2023 1:10 PM CDT Matt Clements MD LAB - BLOOD ORDERABLES Final Result [facility] Lab [address] Lab (1st floor, no room number) [place] [address], [facility] * Extra Red Top Tube (11/28/2023 12:57 PM CDT) Hold Specimen [facility] 11/28/2023 2:16 PM CDT [facility] Blood STRUCTURE OF LEFT UPPER LIMB / Unknown Venipuncture / Unknown 11/28/2023 12:57 PM CDT 11/28/2023 1:10 PM CDT Matt Clements MD LAB - BLOOD ORDERABLES Final Result [facility] [address] Lab (1st floor, no room number) [place] [address], [facility] * Extra Blue Top Tube (11/28/2023 12:57 PM CDT) Hold Specimen [facility] 11/28/2023 2:16 PM CDT [facility] Blood STRUCTURE OF LEFT UPPER LIMB / Unknown Venipuncture / Unknown 11/28/2023 12:57 PM CDT 11/28/2023 1:10 PM CDT us Matt Clements MD LAB - BLOOD ORDERABLES Final Result [facility] Acute Care Lab [address] Lab (1st floor, no room number) [place] [address], [facility] * CBC with platelets and [...] LAB - BLOOD ORDERABLES Final Result LABORATORY [facility] Acute Care Lab [address] [facility] Lab (1st floor, no room number) [place] [address] * Troponin T, High Sensitivity (11/28/2023 12:57 PM CDT) [facility] Troponin T, High Sensitivity <6 [...] LAB - BLOOD ORDERABLES Final Result LABORATORY [facility] Lab [address] [facility] Lab (1st floor, no room number) [place] [address], [facility] * (ABNORMAL) Basic metabolic panel (11/28/2023 12:57 PM CDT) Sodium 138 135 - 145 mmol/L 11/28/2023 1:32 PM CDT LABORATORY Potassium 4.1 3.4 - 5.3 mmol/L 11/28/2023 1:32 PM CDT LABORATORY Chloride 102 98 - 107 mmol/L 11/28/2023 1:32 PM CDT LABORATORY Carbon Dioxide (CO2) 22 22 - 29 mmol/L 11/28/2023 1:32 PM CDT LABORATORY Anion Gap 14 7 - 15 mmol/L 11/28/2023 1:32 PM CDT LABORATORY Urea Nitrogen 16.6 6.0 - 20.0 mg/dL 11/28/2023 1:32 PM CDT LABORATORY Creatinine 0.71 0.51 - 0.95 mg/dL 11/28/2023 1:32 PM CDT LABORATORY GFR Estimate >90 >60 mL/min/1.7 3m2 11/28/2023 1:32 PM CDT LABORATORY Comment:eGFR calculated usin 2020 CKD-EPI [...] LAB - BLOOD ORDERABLES Final Result LABORATORY [facility] Acute Care Lab [address] Lab (1st floor, no room number) [place] [address] * EKG 12-lead, tracing only (11/28/2023 12:43 PM CDT) Systolic Blood Pressure mmHg RADIOLOGY RESULTS Diastolic Blood Pressure mmHg RADIOLOGY RESULTS Ventricular Rate 70 BPM RAD IOLOGY RESULTS Atrial Rate 70 BPM RADIOLOG Y RESULTS AZ Interval 156 ms RADIOLOG Y RESULTS QRS Duration 88 ms RADIOLO GY RESULTS QT 388 ms RADIOLOGY RESULTS QTc 419 ms RADIOLOGY RESULTS P [place] 12 degrees RADIOLOGY RESULTS R AXIS 35 degrees RADIOLOGY RESULTS T [place] 6 degrees RADIOLOGY RESULTS Interpretation ECG Sinus rhythm Normal ECG When compared with ECG of 15-Sep-2022 08:14, No significant change was found Unconfirmed report - interpretation of this ECG is computer generated - see medical record for final interpretation Confirmed by - EMERGENCY ROOM, PHYSICIAN ([id number]), desk editor José Olsen ([id number]) on 11/28/2023 2:10:41 PM RADIOLOGY RESULTS 11/28/2023 12:4 3 PM CDT 11/28/2023 2:10 PM CDT Matt Clements MD ECG ORDERABLES Edited Result - Final [...] CT scan. 1550 ($Given - Provi vidhi: Abbeymandy Dior) hydrOXYzine HCl (ATARAX) tablet 25 mg (COMPLETED) 25 mg, Oral, ONCE, On Mon11/28/23 at 1420, For 1 dose 1433 ($Given - Provi vidhi: Marybel Ramirez RN) iopamidol (ISOVUE-370) solution 500 mL (COMPLETED) 500 mL, Intravenous, ONCE, On Mon11/28/23 at 1550, For 1 dose 1550 ($Given - Provi vidhi: Abbey A Ovi) sodium chloride 0.9% BOLUS 1,000 mL (COMPLETED) [...] documented as of this encounter Care Teams Extruder Operator Relationship Specialty Start Date End Date [facility], [address] [address] PCP - General 11/28/23 Madelaine Mitchell DO sales designer 07/26/16 Francesco Merritt MD [address] [place] [address] Family Medicine - Sports Medicine 12/14/18 Gabe Carl MD [address] [facility] [place] [address] Assigned PCP 05/09/21 documented as of this encounter
--- OUTSIDE RECORDS SUMMARY | 2024-02-09 07:29 | XMS_ITS | Encounter Summary ---
Author Organization [place] Address [address] [place] [address]. [place] [address] Care Team Providers Care Executive Administrative Asst Name Role Phone Madelaine Mitchell DO Unavailable [phone] Francesco Merritt MD Unavailable Gabe Carl MD Unavailable [phone] [place] [address] Primary Care Provider Encounter Details Date Type Department Care Team (Late st Contact Info) Description 01/11/2024 Telephone [facility] Women's [facility] [address] [place] [address] Madelaine Mitchell DO [address] [facility] [address] [place], [place] [address] Social History Tobacco Use Types Packs/Day Years [...] Dr. Madelaine Mitchell DO Obstetrics and Gynecology [facility] [place] [facility] [place] documented in this encounter Plan of Treatment Not on file documented as of this encounter Visit Diagnoses Not on filedocumented in this encounter Additional Health Concerns Assessment Noted Time PHQ-9 Depression Total Score: 21 023 10:16 AM CDT documented as of this encounter Care Teams Executive Administrative Asst Relationship Specialty Start Date End Date [facility], [address] [address] PCP - General 11/28/23 Madelaine Mitchell DO pipe turner 07/26/[address] [facility] [place] [id number] [place] [address] Family Medicine - Sports Medicine 12/14/18 Gabe Carl MD [facility]5 [facility] [place] [address] Assigned PCP 05/09/21 documented as of this encounter
--- OUTSIDE RECORDS SUMMARY | 2024-02-09 07:29 | XMS_ITS | Encounter Summary ---
Author Organization [place] Address [address] [place] [address]. [place] [address] Care Team Providers Care Inspector Clip On Sunglasses Name Role Phone Madelaine Mitchell DO Unavailable [phone] Rosamaria Jones MD Primary Care Provider Francesco Merritt MD Unavailable [phone] Gabe Carl MD Unavailable [phone] Danielle Alcantar MD Unavailable [phone] [facility] Primary Care Provider Encounter Details Date Type Department Care Team (Late st Contact Info) Description 08/27/2021 MyC Medical Advice [facility] [address] 5th [place] [address] Danielle Wright, PT [address] [address] Social History Tobacco Use Types Packs/Day Years [...] Depression Total Score: 10 022 9:03 AM DOWEL POINTER documented as of this encounter Care Teams Inspector Clip On Sunglasses Relationship Specialty Start Date End Date Rosamaria Jones MD [address] [facility] 200 [place] [address] PCP - General Internal Medicine 10/06/18 11/27/[address] [address] PCP - General 11/28/23 Madelaine Mitchell DO clinical dental technician 07/26/16 Francesco Merritt MD [facility] [address] Family Medicine - Sports Medicine 12/14/18 Gabe Carl MD [address] [facility] [place] [address] Assigned PCP 05/09/21 Danielle Alcantar MD [address] [place], [place] [address] Assigned Musculoskeletal Provider 07/18/21 02/03/23 documented as of this encounter
--- OUTSIDE RECORDS SUMMARY | 2024-02-09 07:29 | XMS_ITS | Encounter Summary ---
Author Organization [place] Address [address] [place] [address]. [place] [address] Care Team Providers Care Manager Story Name Role Phone Madelaine Mitchell DO Unavailable [phone] Rosamaria Jones MD Primary Care Provider Francesco Merritt MD Unavailable Gabe Carl MD Unavailable [phone] Danielle Alcantar MD Unavailable [phone] [facility] Primary Care Provider Encounter Details Date Type Department Care Team (Late st Contact Info) Description 01/08/2023 MyC Medical Advice [facility] [address] [place] [address] Francesco Merritt MD [address] [place] [address] [address] [place] [address] Social History Tobacco Use Types Packs/Day Years [...] documented as of this encounter Care Teams Manager Story Relationship Specialty Start Date End Date Rosamaria Jones MD [address] [facility] 200 [place] [address] PCP - General Internal Medicine 10/06/18 11/27/[address] [address] PCP - General 11/28/23 Madelaine Mitchell DO set painter 07/26/16 Francesco Merritt MD [address] [place] [address] Family Medicine - Sports Medicine 12/14/18 Gabe Carl MD [address] [place] [address] [place] [address] Assigned PCP 05/09/21 Danielle Alcantar MD [address] [place] [address] Assigned Musculoskeletal Provider 07/18/21 02/03/23 documented as of this encounter
--- OUTSIDE RECORDS SUMMARY | 2024-02-09 07:30 | XMS_ITS | Encounter Summary ---
Author Organization [place] Address [address] [place] [address] Care Team Providers Care Heat Treater Head Name Role Phone Madelaine Mitchell DO Unavailable [phone] Rosamaria Jones MD Primary Care Provider Francesco Merritt MD Unavailable [phone] Elaina Jiang APRN [facility] Unavailable [phone] Rosamaria Jones MD Unavailable Gabe Carl MD Unavailable [phone] Danielle Alcantar MD Unavailable [facility] Primary Care Provider Encounter Details Date Type Department Care Team (Late st Contact Info) Description 03/14/2021 [facility] Medical Advice [facility] Women's [facility] [address] [place] [phone] Madelaine Mitchell DO [address] [facility] [address] [place], [place] [address] Anovulation (Primary Dx) Social History Tobacco Use Types Packs/Day Years Used Date Smoking Tobacco: Some Days Cigarettes Smokeless Tobacco: Never Comments:2 to 3 a day Alcohol Use Standard Drinks/Week Comments Yes 0 (1 standard drink = 0.6 oz pur e alcohol) PHQ-2 Answer Date Recorded PHQ-2 Score 0 03/28/2018 Comments No Sex and Gender Information Value Date Recorded Sex Assigned at Not on file Legal Sex Female 2:11 PM CDT Gender Identity Not on file Sexual Orientation Not on file documented as of this encounter Miscellaneous Notes * Telephone Encounter - Grisel Catalan RN - 03/15/2021 8:46 AM CST Please address the my chart message. Clif Catalan RN ELAIN ENAMEL SPRAYER documented in this encounter Plan of Treatment Not on file documented as of this encounter Visit Diagnoses Diagnosis Anovulation- Primary Female infertility associated with anovulation documented in this encounter Additional Health Concerns Infection Onset Date Last Indicated Resolved Time Rule Out COVID-19 03/31/2021 03/31/2021 03/31/2021 7:10 AM PORCELAIN ENAMEL SPRAYER Rule Out COVID-19 09/15/2022 09/15/2022 09/15/2022 9:15 AM CDT Assessment Noted Time PHQ-9 Depression Total Score: 10 019 7:03 AM CDT documented as of this encounter Care Teams Heat Treater Head Relationship Specialty Start Date End Date Rosamaria Jones MD [address] [facility] 200 [place] [address] PCP - General Internal Medicine 10/06/18 11/27/[address] [address] PCP - General 11/28/23 Madelaine Mitchell DO high pressure kettle operator 07/26/16 Francesco Merritt MD [facility] [facility] [address] [place] [address] Family Medicine - Sports Medicine 12/14/18 Elaina Jiang APRN OCEAN EXPORT COORDINATOR [address] [place] [address] Assigned PCP 10/27/19 04/03/21 Rosamaria Jones MD [address] [facility] 200 [place] [address] Assigned PCP 04/04/21 05/08/21 Gabe Carl MD [address] [place] [address] V[place]ICIUS MANN[place] [address] Assigned PCP 05/09/21 Danielle Alcantar MD [address] [place] [address] Assigned Musculoskeletal Provider 07/18/21 02/03/23 documented as of this encounter
--- OUTSIDE RECORDS SUMMARY | 2024-02-09 07:30 | XMS_ITS | Encounter Summary ---
Author Organization [place] Address [address] [place] [address] Care Team Providers Care Adjunct Physical Education Instructor Name Role Phone Madelaine Mitchell DO Unavailable Rosamaria Jones MD Primary Care Provider Francesco Merritt MD Unavailable [phone] Loyda Farmer MD Unavailable [phone] CreElaina morales APRN [facility] Unavailable [phone] Rosamaria Jones MD Unavailable Gabe Carl MD Unavailable [phone] Danielle Alcantar MD Unavailable [facility] Primary Care Provider Reason for Visit * Reason Comments Medication Refill Encounter Details Date Type Department Care Team (Late st Contact Info) Description 10/13/2019 Refill [facility] [address] [place] [address] Madelaine Mitchell DO [address] [facility] 100 [place] [address] Medication Refill Social History Tobacco Use Types [...] Out COVID-19 03/31/2021 03/31/2021 03/31/2021 7:10 AM DIGITAL ANALYST Rule Out COVID-19 09/15/2022 09/15/2022 09/15/2022 9:15 AM CDT Assessment Noted Time PHQ-9 Depression Total Score: 10 019 7:03 AM CDT documented as of this encounter Care Teams Adjunct Physical Education Instructor Relationship Specialty Start Date End Date Rosamaria Jones MD [address] [facility] 200 [place] [address] PCP - General Internal Medicine 10/06/18 11/27/[address] [address] PCP - General 11/28/23 Madelaine Mitchell DO real estate services administrator 07/26/16 Francesco Merritt MD [facility] [place] [address] Family Medicine - Sports Medicine 12/14/18 Loyda Farmer MD [address] [place] [address] Assigned PCP 09/29/19 10/26/19 Elaina Jiang APRN CNP [address] [place], [place] [address] Assigned PCP 10/27/19 04/03/21 Rosamaria Jones MD [address] [facility] 200 [place], [place] [address] Assigned PCP 04/04/21 05/08/21 Gabe Carl MD [address] [facility] [place] [address] Assigned PCP 05/09/21 Danielle Alcantar MD [address] [place], [place] [address] Assigned Musculoskeletal Provider 07/18/21 02/03/23 documented as of this encounter
--- OUTSIDE RECORDS SUMMARY | 2024-02-09 07:30 | XMS_ITS | Encounter Summary ---
Author Organization [place] Address [address] [place] [address] Care Team Providers Care Marine Farmer Name Role Phone Madelaine Mitchell DO Unavailable Rosamaria Jones MD Primary Care Provider [phone] Francesco Merritt MD Unavailable [phone] Elaina Jiang APRN [facility] Unavailable [phone] Rosamaria Jones MD Unavailable Gabe Carl MD Unavailable [phone] Danielle Alcantar MD Unavailable [facility] Primary Care Provider Encounter Details Date Type Department Care Team (Late st Contact Info) Description 07/10/2020 [facility] Medical Advice [facility] [address] [place] [phone] Madelaine Mitchell DO [address] [facility] [address] [place], [place] [address] Social History Tobacco Use Types Packs/Day Years [...] Out COVID-19 03/31/2021 03/31/2021 03/31/2021 7:10 AM TURNING LATHE TENDER Rule Out COVID-19 09/15/2022 09/15/2022 09/15/2022 9:15 AM CDT Assessment Noted Time PHQ-9 Depression Total Score: 10 019 7:03 AM CDT documented as of this encounter Care Teams Marine Farmer Relationship Specialty Start Date End Date Rosamaria Jones MD [address] [place] [address] PCP - General Internal Medicine 10/06/18 11/27/[address] [address] PCP - General 11/28/23 Madelaine Mitchell DO die casting supervisor 07/26/16 Francesco Merritt MD [address] [place] [address] Family Medicine - Sports Medicine 12/14/18 Elaina Jiang APRN CNP [address] [place], [place] [id number] Assigned PCP 10/27/19 04/03/21 Rosamaria Jones MD [address] [place] [id number] Assigned PCP 04/04/21 05/08/21 Gabe Carl MD [address] [facility] [place] [address] Assigned PCP 05/09/21 Danielle Alcantar MD [address] [place], [place] [address] Assigned Musculoskeletal Provider 07/18/21 02/03/23 documented as of this encounter
--- OUTSIDE RECORDS SUMMARY | 2024-02-09 07:30 | XMS_ITS | Clinical Summary ---
Author Organization [facility] Address [address] [place] [address] Care Team Providers Care Agricultural Education Instructor Name Role Phone Rosamaria Jones MD Primary Care Provider [phone] Source Comments You are receiving this document [...] for each transition of care or referral. [facility] All[facility] Active Allergy Reactions Criticality Noted Date [...] Department Care Team Description 01/21/2024 monse Tafoya [phone] from Last 3 Months Social History Tobacco Use Types Packs/Day Years Used Date Smoking Tobacco: Never Estimated Date of Delivery Comme nts Yes 01/10/2017 Sex and Gender Information Value Date Recorded Sex Assigned at Not on file Gender Identity Not on file Sexual Orientation Not on file Last Filed Vital Signs Vital Sign Reading Time Taken Comments Blood Pressure 123/75 06/15/2016 11:56 AM JUICE STANDARDIZER Pulse 104 06/15/2016 11:56 AM JUICE STANDARDIZER Temperature 36.7 ??C (98.1 ??F) 06/15/2016 11:[address] Respiratory Rate 20 06/15/2016 11:56 AM JUICE STANDARDIZER Oxygen Saturation 98% 06/15/2016 11:56 AM JUICE STANDARDIZER Inhaled Oxygen Concentration - - Weight 86.2 [...] age to complete this topic Care Teams Agricultural Education Instructor Relationship Specialty Start Date End Date Rosamaria Jones MD [address] [address] PCP - General 11/10/15
--- OUTSIDE RECORDS SUMMARY | 2024-02-09 07:30 | XMS_ITS | Encounter Summary ---
[facility] Organization [facility] Address [address], [place] [address] Care Team Providers Care Whipped Topping Mixer Name Role Phone Rosamaria Jones MD Primary Care Provider [phone] Encounter Details Date Type Department Care Team (Late st Contact Info) Description 10/24/2023 franko Tafoya [phone] Social History Tobacco Use Types Packs/Day Years [...] of : 88 Provider Kei Talley, Physician Research Laboratory Manager Note From Provider Kendrick Red! I have now sent it to the correct pharmacy that you requested. My apologies! Take care!Kei Hanna PA-C Treatment Plan Let?? try a topical antibiotic for your bacterial vaginosis. I sent a prescription to [facility]. Make sure to take all of the [...] 5 days Note: Refills: None Sent To: [facility] [address] [place] [address] [address] [place], [place] [id number] Treatment Plan Self Care Tip Topics Avoid [...] acid) metformin (metformin) Allergies Sulfa (Sulfonamide Antibiotics) [facility] Information [facility] We are an online clinic open 07/11. If you have any questions or comments about this visit, please call or email [email or web address] * FAMILY MEDICINEFRANKO PROVIDER - 10/25/2023 9:36 AM CDT Franko Addendum Treatment Plan Diagnosis Bacterial Vaginosis (BV) Visit Date October 24, 2023 Addendum Date October 25, 2023 Neda Isa Date of : 88 Provider Kei Talley, Physician Research Laboratory Manager Note From Provider Kendrick Red! I have sent the topical antibiotic to your pharmacy. Take care!Best, ARIANA Choudhury Treatment Plan Let?? try a topical antibiotic for your bacterial vaginosis. I sent a prescription to [facility]. Make sure to take all of the [...] 5 days Note: Refills: None Sent To: [facility] [address] [place] [address] DR [place], VINICIUS [id number] Treatment Plan Self Care Tip Topics Avoid [...] (metformin) Allergies Sulfa (Sulfonamide Antibiotics) [facility] Information [facility] We are an online clinic open 07/11. If you have any questions or comments about this visit, please call or email [email or web address] * FAMILY MEDICINE, FRANKO PROVIDER - 10/24/2023 [...] bacterial vaginosis. I sent a prescription to [facility]. Make sure to take all of the [...] if symptoms persist Refills: None Sent To: [facility] [address] [place], [place] [id number] Treatment Plan Self Care Tip Topics Avoid [...] acid) metformin (metformin) Allergies Sulfa (Sulfonamide Antibiotics) [facility] We are an online clinic open 07/11. If you have any questions or comments about this visit, please call or email [email or web address] documented in this encounter Plan of Treatment Not on file documented as of this encounter Visit Diagnoses Diagnosis Acute vaginitis Vaginitis and vulvovaginitis, unspecified documented in this encounter Care Teams Whipped Topping Mixer Relationship Specialty Start Date End Date Rosamaria Jones MD [address] [facility] [address] [place] [address] PCP - General 11/10/15 documented as of this encounter
--- OUTSIDE RECORDS SUMMARY | 2024-02-09 07:30 | XMS_ITS | Encounter Summary ---
Author Organization [facility] Address [address] [place] [address]. [place] [address] Care Team Providers Care School Traffic Guard Name Role Phone Stephen Madelaine Garcia DO Unavailable Rosamaria Jones MD Primary Care Provider [phone] Francesco Merrtit MD Unavailable [phone] Loyda Farmer MD Unavailable CreElaina morales APRN [facility] Unavailable [phone] Rosamaria Jones MD Unavailable Gabe Carl MD Unavailable [phone] Danielle Alcantar MD Unavailable [phone] [facility], [facility] Primary Care Provider Encounter Details Date Type Department Care Team (Late st Contact Info) Description 10/22/2019 MyC Medical Advice [facility] [address] [place] [address] Queta Lisa, RN Social History [...] Out COVID-19 03/31/2021 03/31/2021 03/31/2021 7:10 AM HOUSETRAILER SERVICER Rule Out COVID-19 09/15/2022 09/15/2022 09/15/2022 9:15 AM CDT Assessment Noted Time PHQ-9 Depression Total Score: 10 019 7:03 AM CDT documented as of this encounter Care Teams School Traffic Guard Relationship Specialty Start Date End Date Rosamaria Jones MD [address] [facility] [address] [place] [address] PCP - General Internal Medicine 10/06/18 11/27/[address] [address] PCP - General 11/28/23 Madelaine Mitchell DO video camera operator 07/26/16 Francesco Merritt MD [id number] [place] [address] Family Medicine - Sports Medicine 12/14/18 Loyda Farmer MD [address] [place], [place] [id number] Assigned PCP 09/29/19 10/26/19 Elaina Jiang APRN CNP [address] [place] [address] Assigned PCP 10/27/19 04/03/21 Rosamaria Jones MD [address] [facility] [address] [place] [address] Assigned PCP 04/04/21 05/08/21 Gabe Carl MD [address] [facility] [place] [address] Assigned PCP 05/09/21 Danielle Alcantar MD [address] [place], [place] [address] Assigned Musculoskeletal Provider 07/18/21 02/03/23 documented as of this encounter
--- OUTSIDE RECORDS SUMMARY | 2024-02-09 07:30 | XMS_ITS | Encounter Summary ---
Author Organization [facility] Address [address], [place] [address] Care Team Providers Care Theater Education Teacher Name Role Phone Rosamaria Jones MD Primary Care Provider [phone] Encounter Details Date Type Department Care Team (Late st Contact Info) Description 01/21/2024 franko Tafoya [phone] Social History Tobacco Use Types Packs/Day Years [...] sent a prescription for an antibiotic to [facility] and included a prescription for anantifungal medication in case you develop a yeast infection. I also listed a few self-caretips to helprelieve your symptoms while the antibiotic begins to work. If your symptoms don??improve after taking the full course of your antibiotic, or if you have questions,select Help to Request afollow-up, and we??l discuss next steps. Order(s) amoxicillin-pot clavulanate 904-125 mg tablet Take 1 tablet oral twice a day for 7 days Note: $patientNotes Refills: None fluconazole 150 mg tablet Take 1 tablet by mouth single dose as directed Note: Repeat in 3 days if symptoms persist Refills: None Sent To: [facility] [address] [place] [address] Treatment Plan Self Care Tip Topics Symptom Relief with Ibuprofen Stay Hydrated Reduce Sinus Pressure with a Nasal Steroid Tyler How to Use Your Nasal Steroid Warm [...] acid) metformin (metformin) Allergies Sulfa (Sulfonamide Antibiotics) [facility] We are an online clinic open 07/11. If you have any questions or comments about this visit, please call or email [email or web address] * FAMILY MEDICINEFRANKO PROVIDER - 01/21/2024 12:09 [...] re-evaluate your symptoms. Feel better soon! Lizy NATURAL GAS PLANT TECHNICIAN Treatment Plan To get you feeling better, I recommend using specific riya-yea-qqwebtm medications to target yoursymptoms, which may tire changer time as your immune system fights the [...] acid) metformin (metformin) Allergies Sulfa (Sulfonamide Antibiotics) [facility] Information [facility] [employer] We are an online clinic open 07/11. If you have any questions or comments about this visit, please call or email [email or web address] documented in this encounter Plan of Treatment Not on file documented as of this encounter Visit Diagnoses Diagnosis Acute sinusitis, unspecified documented in this encounter Care Teams Theater Education Teacher Relationship Specialty Start Date End Date Rosamaria Jones MD [address] [address] PCP - General 11/10/15 documented as of this encounter
--- OUTSIDE RECORDS SUMMARY | 2024-02-09 07:30 | XMS_ITS | Continuity of Care Document ---
Author Organization [facility] Address [address] [address] [place] [address] Phone Care Team Providers Care Shuttle Spotter Name Role Phone No Information Unavailable Unavailable [...] Encounter [facility], [address] [address], [place], [id number], tel:[phone] No Information Nov-0 1-202 3 No Information [facility], [address] [address], [place], [id number], tel:[phone] [facility] Other fecal abnormalities [address] [place] [address], [id number], [place]. tel:[phone] Referring Provider: Referral Self, USE FOR SELF REFERRALS. [facility] Level 5 [facility], [address] [address], [place], [id number], tel:[phone] [facility] GI Symptoms or Concerns (chief complaint) Loose stoolsAbdominal pain, unspecified abdominal locationNausea and vomiting, unspecified vomiting type 3 [address] [place] [address], [id number], [place]. tel:[phone] Referring Provider: Referral Self, USE FOR SELF REFERRALS. [facility], [address] [address], [place], [id number], tel:[phone] [facility] GI Symptoms or Concerns (chief complaint) No Information [address] [place] [address], [id number], [place]. tel:[phone] Family History Family Member Type Diagnosis Age [...] or illicit drugs. 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 She has 3 children. Her youngest [...]
--- OUTSIDE RECORDS SUMMARY | 2024-02-09 07:30 | XMS_ITS | Encounter Summary ---
Author Organization [facility] Address [address] [place] [address] Care Team Providers Care Scrap Worker Name Role Phone Darwinjorge Madelaine Garcia DO Unavailable [phone] Rosamaria Jones MD Primary Care Provider [phone] Francesco Merritt MD Unavailable [phone] Elaina Jiang APRN [facility] Unavailable [phone] Rosamaria Jones MD Unavailable Gabe Carl MD Unavailable [phone] Danielle Alcantar MD Unavailable [facility] Primary Care Provider Encounter Details [...] COVID-19? No / Unsure 03/31/2021 6:25 AM HOME WORKER documented as of this encounter Plan of Treatment Not on file documented as of this encounter Visit Diagnoses Not on filedocumented in this encounter Additional Health Concerns Infection Onset Date Last Indicated Resolved Time Rule Out COVID-19 03/31/2021 03/31/2021 03/31/2021 7:10 AM HOME WORKER Rule Out COVID-19 09/15/2022 09/15/2022 09/15/2022 9:15 AM CDT Assessment Noted Time PHQ-9 Depression Total Score: 10 019 7:03 AM CDT documented as of this encounter Care Teams Scrap Worker Relationship Specialty Start Date End Date Rosamaria Jones MD [address] [address] PCP - General Internal Medicine 10/06/18 11/27/[address] [address] PCP - General 11/28/23 Madelaine Mitchell DO store merchandiser 07/26/16 Francesco Merritt MD [address] [place] [address] Family Medicine - Sports Medicine 12/14/18 Elaina Jiang APRN STRATEGIC PLANNING ANALYST [address] [place], [place] [address] Assigned PCP 10/27/19 04/03/21 Rosamaria Jones MD [address] [address] Assigned PCP 04/04/21 05/08/21 Gabe Carl MD [address] [facility] [place] [address] Assigned PCP 05/09/21 Danielle Alcantar MD [address] [place] [address] Assigned Musculoskeletal Provider 07/18/21 02/03/23 documented as of this encounter
--- OUTSIDE RECORDS SUMMARY | 2024-02-09 07:30 | XMS_ITS | Encounter Summary ---
Author Organization [facility] Address [address] [place] [address] Care Team Providers Care Offset Lithographic Press Operator Name Role Phone Madelaine Mitchell DO Unavailable [phone] Rosamaria Jones MD Primary Care Provider [phone] Francesco Merritt MD Unavailable [phone] Gabe Carl MD Unavailable [phone] Danielle Alcantar MD Unavailable [facility] Primary Care Provider Reason for Referral * Infertility Artificial Insemination (Routine: Next available opening) - Closed Specialty Diagnoses / Procedures Referred By Contjoaquin t Referred To Contact Diagnoses [place] [address] [place] [address] Phone: tel: fax: [facility] [address] [place] [address] Phone: tel: Referral ID Status Reason Start Date Expiration Date Visits Re quested Visits Authorized [id number] Closed 06/07/2021 06/07/2022 1 1 Question Answer [...] or coverage questions. [facility]: [phone] [facility] [phone] [facility]. ([facility]) [phone] Other (external) - Use Comments Please call to schedule your appointment PERFORMANCE SUPPORT ANALYST Encounter Details Date Type Department Care Team (Late st Contact Info) Description 06/03/2021 [facility] Advice [facility] [address] [place] [address] Madelaine Mitchell DO [address] [place] [address] Anovulation (Primary Dx) Social History [...] Noted Time PHQ-9 Depression Total Score: 10 04/30/ 022 9:03 AM LEAD PERFORMANCE SUPPORT ANALYST documented as of this encounter Care Teams Offset Lithographic Press Operator Relationship Specialty Start Date End Date Rosamaria Jones MD [address] [place] [address] PCP - General Internal Medicine 10/06/18 11/27/[address] [address] PCP - General 11/28/23 Madelaine Mitchell DO mining machinery assembler 07/26/16 Francesco Merritt MD [facility] [place], [place] [address] Family Medicine - Sports Medicine 12/14/18 Gabe Carl MD [address] [facility] [place] [address] Assigned PCP 05/09/21 Danielle Alcantar MD [address] [place], [place] [address] Assigned Musculoskeletal Provider 07/18/21 02/03/23 documented as of this encounter
--- OUTSIDE RECORDS SUMMARY | 2024-02-09 07:30 | XMS_ITS | Encounter Summary ---
Author Organization [facility] Address [address] [place] [address] Care Team Providers Care Technical Buyer Name Role Phone Rosamaria Jones MD Primary Care Provider [phone] Madelaine Mitchell DO Unavailable [phone] Elaina Jiang APRN CUSTOMER SUCCESS REPRESENTATIVE Unavailable [phone] No Ref-Primary, Physician Primary Care Provider Rosamaria Jones MD Primary Care Provider Francesco Merritt MD Unavailable Rosamaria Jones MD Unavailable Loyda Farmer MD Unavailable [phone] Elaina Jiang APRN CUSTOMER SUCCESS REPRESENTATIVE Unavailable [phone] Rosamaria Jones MD Unavailable Gabe Carl MD Unavailable [phone] Danielle Alcantar MD Unavailable [phone] [facility] Primary Care Provider Encounter Details Date Type Department Care Team (Late st Contact Info) Description 07/15/2018 [facility] [address] [place] [address] Madelaine Mitchell DO [address] [facility] [address] [place] [address] PCOS (polycystic ovarian syndrome) (Primary Dx) Social [...] Out COVID-19 03/31/2021 03/31/2021 03/31/2021 7:10 AM LEAD DATABASE DEVELOPER Rule Out COVID-19 09/15/2022 09/15/2022 09/15/2022 9:15 AM CDT Assessment Noted Time PHQ-9 Depression Total Score: 0 02/01/20 17 1:00 PM CDT documented as of this encounter Care Teams Technical Buyer Relationship Specialty Start Date End Date Rosamaria Jones MD [address] [place] [address] PCP - General Internal Medicine 09/12/14 07/24/18 No Ref-Primary, Physician PCP - General 07/25/18 10/05/18 Rosamaria Jones MD [address] [place] [address] PCP - General Internal Medicine 10/06/18 11/27/[address] [address] PCP - General 11/28/23 Madelaine Mitchell DO [address] [place] [address] performance improvement specialist 07/26/16 Elaina Jiang APRN CUSTOMER SUCCESS REPRESENTATIVE [address] [place] [address] Assigned PCP 04/08/18 03/30/19 Francesco Merritt MD [address] [place] [address] Family Medicine - Sports Medicine 12/14/18 Rosamaria Jones MD [address] [address] Assigned PCP 03/31/19 09/28/19 Loyda Farmer MD [address] [place], [place] [address] Assigned PCP 09/29/19 10/26/19 Elaina Jiang APRN CUSTOMER SUCCESS REPRESENTATIVE [address] [place] [address] Assigned PCP 10/27/19 04/03/21 Rosamaria Jones MD [address] [address] Assigned PCP 04/04/21 05/08/21 Gabe Carl MD [address] [facility] [place] [address] Assigned PCP 05/09/21 Danielle Alcantar MD [address] [place], [place] [address] Assigned Musculoskeletal Provider 07/18/21 02/03/23 documented as of this encounter
--- OUTSIDE RECORDS SUMMARY | 2024-02-09 07:30 | XMS_ITS | Encounter Summary ---
Author Organization [facility] Address [address] [place] [address]. [place] [address] Care Team Providers Care Machine Boss Name Role Phone Darwinjorge Madelaine Garcia DO Unavailable [phone] Rosamaria Jones MD Primary Care Provider [phone] Francesco Merritt MD Unavailable Rosamaria Jones MD Unavailable SerumLoyda MD Unavailable CrekristanElaina APRN MENTAL HEALTH ADVANCED PRACTICE NURSE Unavailable [phone] Rosamaria Jones MD Unavailable MeseretGabe jordan MD Unavailable [phone] Danielle Alcantar MD Unavailable [phone] [facility] [place] Primary Care Provider Encounter Details Date Type Department Care Team (Late st Contact Info) Description 06/28/2019 Psychiatric Only [facility] [place] [address] [facility] [place] [address] [...] COLP CERVIX/UPPER VAGINA Routine 04/25/2018 12:00 AM JIG BORER documented in this encounter Results * COLP CERVIX/UPPER VAGINA (04/25/2018 12:00 AM JIG BORER) us Patient Reported PROCEDURES Final Result documented in this encounter Visit Diagnoses Not on filedocumented in this encounter Additional Health Concerns Infection Onset Date Last Indicated Resolved Time Rule Out COVID-19 03/31/2021 03/31/2021 03/31/2021 7:10 AM JIG BORER Rule Out COVID-19 09/15/2022 09/15/2022 09/15/2022 9:15 AM CDT Assessment Noted Time PHQ-9 Depression Total Score: 10 019 7:03 AM CDT documented as of this encounter Care Teams Machine Boss Relationship Specialty Start Date End Date Rosamaria Jones MD [address] [employer] [address] [place] [address] PCP - General Internal Medicine 10/06/18 11/27/[address] [address] PCP - General 11/28/23 Madelaine Mitchell DO marketing developer 07/26/16 Francesco Merritt MD [address] [place] [address] Family Medicine - Sports Medicine 12/14/18 Rosamaria Jones MD [address] [place] [address] Assigned PCP 03/31/19 09/28/19 Loyda Farmer MD [address] [place] [address] Assigned PCP 09/29/19 10/26/19 Elaina Jiang APRN MENTAL HEALTH ADVANCED PRACTICE NURSE [address] [place], [place] [address] Assigned PCP 10/27/19 04/03/21 Rosamaria Jones MD [address] [facility] 200 [place] [address] Assigned PCP 04/04/21 05/08/21 Gabe Carl MD [address] [facility] [place] [id number] Assigned PCP 05/09/21 Danielle Alcantar MD [address] [place], [place] [address] Assigned Musculoskeletal Provider 07/18/21 02/03/23 documented as of this encounter
--- OUTSIDE RECORDS SUMMARY | 2024-02-09 07:30 | XMS_ITS | Encounter Summary ---
Author Organization [facility] Address [address] [place] [address]. [place] [address] Care Team Providers Care Roll Finisher Name Role Phone Darwinjorge Madelaine Garcia DO Unavailable Rosamaria Jones MD Primary Care Provider [phone] Francesco Merritt MD Unavailable [phone] Rosamaria Jones MD Unavailable SerumLoyda MD Unavailable CrekristanElaina APRN CASE WORKER Unavailable [phone] Rosamaria Jones MD Unavailable MeseretGabe jordan MD Unavailable [phone] Danielle Alcantar MD [facility] Primary Care Provider Encounter Details Date Type Department Care Team (Late st Contact Info) Description 06/28/2019 [facility] Only [facility] [place] [address] [facility] [place] [...] COLP CERVIX/UPPER VAGINA Routine 04/25/2019 12:00 AM OXYGEN THERAPY TECHNICIAN documented in this encounter Results * COLP CERVIX/UPPER VAGINA (04/25/2019 12:00 AM OXYGEN THERAPY TECHNICIAN) us Patient Reported PROCEDURES Final Result documented in this encounter Visit Diagnoses Not on filedocumented in this encounter Additional Health Concerns Infection Onset Date Last Indicated Resolved Time Rule Out COVID-03/31/2021 03/31/2021 03/31/2021 7:10 AM OXYGEN THERAPY TECHNICIAN Rule Out COVID-19 09/15/2022 09/15/2022 09/15/2022 9:15 AM CDT Assessment Noted Time PHQ-9 Depression Total Score: 10 019 7:03 AM CDT documented as of this encounter Care Teams Roll Finisher Relationship Specialty Start Date End Date Rosamaria Jones MD [email or web address] [employer] [address] [place] [address] PCP - General Internal Medicine 10/06/18 11/27/[address] [address] PCP - General 11/28/23 Madelaine Mitchell DO beef boner 07/26/16 Francesco Merritt MD [address] [place] [address] Family Medicine - Sports Medicine 12/14/18 Rosamaria Jones MD [address] [place] [address] Assigned PCP 03/31/19 09/28/19 Loyda Farmer MD [address] [place] [address] Assigned PCP 09/29/19 10/26/19 Elaina Jiang APRN CASE WORKER [address] [place], [place] [address] Assigned PCP 10/27/19 04/03/21 Rosamaria Jones MD [address] [facility] [address] [place] [address] Assigned PCP 04/04/21 05/08/21 Gabe Carl MD [address] [facility] [place] [id number] Assigned PCP 05/09/21 Danielle Alcantar MD [address] [place], [place] [address] Assigned Musculoskeletal Provider 07/18/21 02/03/23 documented as of this encounter
--- OUTSIDE RECORDS SUMMARY | 2024-02-09 07:30 | XMS_ITS | Encounter Summary ---
Author Organization [place] Address [address] [place] [address] Care Team Providers Care Associate Professor Of Literacy Name Role Phone Madelaine Mitchell DO Unavailable [phone] Rosamaria Jones MD Primary Care Provider Francesco Merritt MD Unavailable Loyda Farmer MD Unavailable CreElaina morales APRN [facility] Unavailable [phone] Rosamaria Jones MD Unavailable Gabe Carl MD Unavailable [phone] Danielle Alcantar MD Unavailable [facility] Primary Care Provider Reason for Visit * Reason Comments Medication Refill Encounter Details Date Type Department Care Team (Late st Contact Info) Description 10/05/2019 Refill [facility] [address] [place] [id number] Madelaine Mitchell DO [address] [facility] 100 [place] [address] Medication Refill Social History Tobacco Use Types [...] RN - 10/22/2019 10:31 AM CDT Sent [employer] message to schedule appt. Queta Morales R.N. [...] Out COVID-19 03/31/2021 03/31/2021 03/31/2021 7:10 AM CLINICAL TRIAL EDUCATOR Rule Out COVID-19 09/15/2022 09/15/2022 09/15/2022 9:15 AM CDT Assessment Noted Time PHQ-9 Depression Total Score: 10 019 7:03 AM CDT documented as of this encounter Care Teams Associate Professor Of Literacy Relationship Specialty Start Date End Date Rosamaria Jones MD [address] [facility] [address] [place] [address] PCP - General Internal Medicine 6/22/19 8/12/24 [facility], [address] [address] PCP - General 11/28/23 Madelaine Mitchell DO band singer 07/26/16 Francesco Merritt MD [address] [place] [address] Family Medicine - Sports Medicine 12/14/18 Loyda Farmer MD [address] [place] [address] Assigned PCP 09/29/19 10/26/19 Elaina Jiang APRN [facility] [address] [place], [place] [address] Assigned PCP 10/27/19 04/03/21 Rosamaria Jones MD [address] [facility] [address] [place], [place] [address] Assigned PCP 04/04/21 05/08/21 Gabe Carl MD [facility] [place] [address] Assigned PCP 05/09/21 Danielle Alcantar MD [address] [place], [place] [address] Assigned Musculoskeletal Provider 07/18/21 02/03/23 documented as of this encounter
--- OUTSIDE RECORDS SUMMARY | 2024-02-09 07:30 | XMS_ITS | Encounter Summary ---
Author Organization [place] Address [address] [place] [address] Care Team Providers Care Morale Officer Name Role Phone Rosamaria Jones MD Primary Care Provider [phone] Madelaine Mitchell DO Unavailable [phone] Jonas Cullen MD Unavailable [phone] Elaina Jiang APRN VOLUNTEER SPECIALIST Unavailable [phone] Elaina Jiang APRN VOLUNTEER SPECIALIST Unavailable [phone] No Ref-Primary, Physician Primary Care Provider Rosamaria Jones MD Primary Care Provider [phone] Francesco Merritt MD Unavailable Rosamaria Jones MD Unavailable Loyda Farmer MD Unavailable [phone] Elaina Jiang APRN VOLUNTEER SPECIALIST Unavailable [phone] Rosamaria Jones MD Unavailable Gabe Carl MD Unavailable [phone] Danielle Alcantar MD Unavailable [phone] [facility] Primary Care Provider Reason for Visit * Reason Onset Date Comments Results 10/07/2016 hgb Encounter Details Date Type Department Care Team (Late st Contact Info) Description 10/07/[address] [facility] Women's [facility] [address] [place] [phone] Madelaine Mitchell DO [address] [place] [address] Results (hgb) Social History Tobacco Use Types [...] Out COVID-19 03/31/2021 03/31/2021 03/31/2021 7:10 AM ENGINEER FISHING VESSEL Rule Out COVID-19 09/15/2022 09/15/2022 09/15/2022 9:15 AM CDT documented as of this encounter Care Teams Morale Officer Relationship Specialty Start Date End Date Rosamaria Jones MD [address] [place] [address] PCP - General Internal Medicine 09/12/14 07/24/18 [place] [address] [place] [address] PCP - Assigned PCP 02/04/18 04/07/18 Elaina Jiang APRN CNP [address] [place] [address] PCP - Assigned PCP 04/08/18 06/19/18 No Ref-Primary, Physician PCP - General 07/25/18 10/05/18 Rosamaria Jones MD [address] [address] PCP - General Internal Medicine 10/06/18 11/27/[address] [address] PCP - General 11/28/23 Madelaine Mitchell DO [address] [address] nuclear medical technologist 07/26/16 Elaina Jiang APRN VOLUNTEER SPECIALIST [address] [place] [address] Assigned PCP 04/08/18 03/30/19 Francesco Merritt MD [facility] [address] [address] Family Medicine - Sports Medicine 12/14/18 Rosamaria Jones MD [address] [address] Assigned PCP 03/31/19 09/28/19 Loyda Farmer MD [address] [place], [place] [id number] Assigned PCP 09/29/19 10/26/19 Elaina Jiang APRN VOLUNTEER SPECIALIST [address] [place] [address] Assigned PCP 10/27/19 04/03/21 Rosamaria Jones MD [address] [facility] 200 [place] [address] Assigned PCP 04/04/21 05/08/21 Gabe Carl MD [address] [facility] [place] [address] Assigned PCP 05/09/21 Danielle Alcantar MD [address] [place] [address] Assigned Musculoskeletal Provider 07/18/21 02/03/23 documented as of this encounter
--- NOTE | 2024-02-09 07:45 | CRLHL7_ITS ---
For Patients: As a result of the Cures Act, medical imaging exams and procedure reports are released immediately into your electronic medical record. You may view this report before your referring provider. If you have questions, please contact your health care provider. DIGITAL DIAGNOSTIC RIGHT MAMMOGRAM USING TOMOSYNTHESIS AND COMPUTER-AIDED DETECTION RIGHT BREAST ULTRASOUND CLINICAL HISTORY: RIGHT breast lump. COMPARISON: CT chest 03/31/2023. TECHNIQUE: Digital RIGHT mammogram in two projections with computer-aided detection. Tomosynthesis was used in this interpretation. Real-time ultrasound imaging of RIGHT breast with imaging documentation. BREAST COMPOSITION: The breasts are heterogeneously dense, which may obscure small masses. FINDINGS: 3D CC/MLO RIGHT breast mammogram images submitted. No suspicious masses or architectural distortion. No suspicious calcifications or adenopathy. Incidental lymph node in the axillary tail noted. Targeted RIGHT breast ultrasound performed at 7 o`clock 12 cm from the nipple. Normal fibroglandular tissue is present. No fibrocystic change or mass. IMPRESSION: No suspicious findings. RECOMMENDATIONS: Routine screening mammography. Results and recommendations discussed with the patient. BI-RADS Category 2: Benign A lay language report of this examination will be provided to the patient. Dictated by Francesco Mcnamara MD @ 02/09/2024 12:02:15 PM jj/Dictated by: Francesco Mcnamara MD @ 02/09/2024 12:02:00 PM (Electronically Signed)
--- NOTE | 2024-02-09 08:15 | CRLHL7_ITS ---
For Patients: As a result of the Cures Act, medical imaging exams and procedure reports are released immediately into your electronic medical record. You may view this report before your referring provider. If you have questions, please contact your health care provider. PLEASE SEE DIGITAL DIAGNOSTIC RIGHT MAMMOGRAM PERFORMED SAME DAY CRL:sadiq babcock/Dictated by: Francesco Mcnamara MD @ 02/09/2024 12:02:00 PM (Electronically Signed)
== END 2024-02-09 07:27 | disposition home or self-care (01) ==
LOC: MAMMO 07:26
PROVIDERS: PCP Family Medicine; Visit Provider Physician Assistant
DX: N63.10 Unspecified lump in the right breast, unspecified quadrant (principal)
CPT/HCPCS: 76642; 77065; G0279

== ENCOUNTER 2024-02-22 16:00 | Outpatient (REF) | payer BC, SELFPAY ==
[2024-02-22 16:30] LABS: Amphetamine Screen Urine Negative (Negative); Barbiturate Screen Urine Negative (Negative); Benzodiazepines Screen Urine POSITIVE (Negative); Cannabinoid Screen Urine Negative (Negative); Cocaine Screen Urine Negative (Negative); Methadone Screen Urine Negative (Negative); Methamphetamines Screen Urine Negative (Negative); Opiate Screen Urine Negative (Negative); Oxycodone Screen Urine Negative (Negative); Phencyclidine Screen Urine Negative (Negative); Tricyclic Antidepressant Urine Negative (Negative)
== END 2024-02-22 16:01 | disposition home or self-care (01) ==
LOC: NPINS 16:00
PROVIDERS: PCP Family Medicine; Visit Provider Nurse Practitioner Psychiatric/Mental Health
DX: F41.1 Generalized anxiety disorder (principal); F41.0 Panic disorder [episodic paroxysmal anxiety]
CPT/HCPCS: 80306

== ENCOUNTER 2024-03-28 18:16 | Emergency (ER) | payer BC, SELFPAY ==
--- NOTE | 2024-03-28 18:25 | ED.GENADULT ---
HPI - General Adult General Time Seen by Provider: 18:25 Date Seen: 03/28/24 Chief complaint: Chest Pain Stated complaint: High BP, chest tightness, dizzy Time Seen by Provider: 03/28/24 18:24 Source: patient, RN notes reviewed and old records reviewed Mode of arrival: ambulatory Limitations: no limitations History of Present Illness HPI narrative: 33-year-old female who presents today with elevated heart rate, also reports elevated blood pressure home. Has had nausea vomiting for the last couple of days, some chest tightness and shortness of breath today. Denies chest pain or pain with breathing. Denies abdominal pain. Denies possibility of . She notes that she has taken a total of Ativan 2 mg today, did start Seroquel last night. Related Data Home Medications ?Medication ?Instructions ?Recorded ?Confirmed clonidine HCl 0.1 mg tablet 0.1 mg PO DAILY PRN 03/28/24 03/28/24 quetiapine 25 mg tablet (Seroquel) 25 mg PO DAILY 03/28/24 03/28/24 Previous Rx's ?Medication ?Instructions ?Recorded metformin 500 mg tablet 1,000 mg (2 x 500 mg) PO BID #360 09/26/23 tabs lorazepam 0.5 mg tablet 0.5 mg PO BID PRN anxiety #60 tabs 12/22/23 fluticasone propionate 50 1 spray intranasal BID #16 grams 01/23/24 mcg/actuation nasal spray,suspension Allergies Allergy/AdvReac Type Severity Reaction Status Date / Time polymyxin B Allergy Severe Swelling Verified 03/28/24 18:32 trimethoprim Allergy Severe Swelling Verified 03/28/24 18:32 chlordiazepoxide Allergy Intermediate Swelling Verified 03/28/24 18:32 of Lip/Tongue/Throat Sulfa (Sulfonamide Allergy Mild Swelling Verified 03/28/24 18:32 Antibiotics) PFSH [facility] Medical History H/O migraine during ?Z86.69 - Personal history of other diseases of the nervous system and sense organs (ICD-10) ?Z87.59 - Personal history of other complications of , childbirth and the puerperium (ICD-10) Gestational hypertension ?O13.9 - Gestational [-induced] hypertension without significant proteinuria, unspecified trimester (ICD-10) Erosive gastritis ?K29.60 - Other gastritis without bleeding (ICD-10) Alcohol withdrawal syndrome ?F10.239 - Alcohol dependence with withdrawal, unspecified (ICD-10) Surgical History S/P thoracotomy ?Z98.890 - Other specified postprocedural states (ICD-10) Status post delivery (2015) ?Z98.891 - History of uterine scar from previous surgery (ICD-10) History of left knee surgery ?Z98.890 - Other specified postprocedural states (ICD-10) History of laser assisted in situ keratomileusis (2008) ?Z98.890 - Other specified postprocedural states (ICD-10) History of knee surgery (2015) ?Z98.890 - Other specified postprocedural states (ICD-10) History of colposcopy (2018) ?Z98.890 - Other specified postprocedural states (ICD-10) History of colonoscopy ?Z98.890 - Other specified postprocedural states (ICD-10) Family History Aunt Breast cancer Depression Other Kidney disease Prostate cancer Social History Narrative: , works in [employer], 2 kids Exercises 3/week (walk/run) Non-smoker- quiet 2015, hx of 8 years on and off smoking Social drinker (1/week) What is your current living situation?: I presently have a place to live Problems where you live: no known problems In the past 12 months, utilities in danger of being shut off: no In the past 12 mos, have been you worried that your food would run out before you had money to buy more?: sometimes true In the past 12 mos, the food you bought just didn't last and you didn't have money to buy more?: never true Physical activity type: none Smoking Status: Former smoker Do you use any of these nicotine containing products: None Second hand tobacco smoke exposure: No How often do you have a drink containing alcohol: 2-3 times a week How often do you have six or more drinks on one occasion: Never AUDIT-C Alcohol total score: 3 Non-prescribed substance use: denies use Are you now , , , , never or living with a partner: Social isolation score (0-1 are the most socially isolated patients): 1 How often does anyone, including family, friends and others, physically hurt you: never How often does anyone, including family, friends and others, insult or talk down to you: never How often does anyone, including family, friends and others, threaten you with harm: never How often does anyone, including family, friends and others, scream or curse at you: never Gender Identity: female Are you currently sexually active: Yes Health Related Social Needs: food insecurity (Z59.41) Exam Narrative: Exam Narrative: General: Well-developed and well-nourished, no acute distress Head: Atraumatic and normocephalic Eyes: Pupils are equal reactive, extraocular motions intact, conjunctiva clear ENT: External nose and ears are normal, posterior pharynx without erythema or exudate Neck: No midline cervical tenderness, full spontaneous range of motion the neck, trachea midline, no adenopathy Heart: Regular rate and rhythm no murmurs or thrills Lungs: Clear to auscultation bilaterally without wheezes or crackles Abdomen: Soft, nontender, nondistended with active bowel sounds Musculoskeletal: No tenderness, deformity, or edema Neurologic: Awake, alert, and oriented x3, no gross focal neurologic deficits, cranial nerves intact as tested Psych: Mood and affect are appropriate Skin: No rashes Const: Vital Signs, click to edit/add: Vital Signs - 24 hr 03/28/24 18:26 Temperature 98 F Pulse Rate [Pulse Oximeter] 92 Respiratory Rate 16 Blood Pressure [Le ft Upper Arm] 140/93 H Pulse Oximetry 97 Oxygen Delivery Me thod Room Air Course Course ED Course: 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 Patient presents today with nausea vomiting for last couple days, but mainly concerned today with fast heart rate, some chest tightness, as well as a couple of days of nausea vomiting. Denies fevers or chills. Start taking Seroquel last night. On exam here, patient's vital is stable although moderately tachycardic, no abdominal tenderness on exam. The initial EKG is reassuring. Patient reports she did receive some fluids from IV clinic today which did not improve symptoms. Suspect this may be a reaction is Seroquel, however with recent gastrointestinal illness concern also for electrolyte disturbance. Labs are ordered and will monitor. EKG independently trip by me performed at 6:37 p.m. demonstrates sinus rhythm rate 94, no acute ST elevations or depressions, normal intervals, normal axis, QRS 76, NV 144, QTC 437 Reevaluation(s) Time of Reevaluation #1: 19:40 Reevaluation #1: Labs ordered and independently interpreted by me with normal basic panel, normal magnesium, normal hepatic panel other than slightly elevated ALT, negative test, negative troponin. Time of Reevaluation #2: 19:48 Reevaluation #2: Lives independently interpreted by me with negative D-dimer. Patient is stable for discharge with outpatient follow-up. Would stop Seroquel for now until she is feeling better and can restart this. Patient's blood pressures have been stable in the department, would advise against using clonidine as this could cause hypotension did with associated orthostasis Vital Signs Vital signs: Initial Vital Signs Temperature 98 F 03/28/24 18:26 Temperature Source Temporal Artery Scan 03/28/24 18:26 Pulse Rate 92 03/28/24 18:26 Pulse Rhythm Regular 03/28/24 18:26 Respiratory Rate 16 03/28/24 18:26 Blood Pressure 140/93 H 03/28/24 18:26 Blood Pressure Mean 108 H 03/28/24 18:26 Blood Pressure Position Sitting 03/28/24 18:26 Pulse Oximetry 97 03/28/24 18:26 Oxygen Delivery Method Room Air 03/28/24 18:26 Vital Signs Temperature 98 F 03/28/24 18:26 Pulse Rate 92 03/28/24 18:26 Respiratory Rate 16 03/28/24 18:26 Blood Pressure 140/93 H 03/28/24 18:26 Pulse Oximetry 97 03/28/24 18:26 Oxygen Delivery Method Room Air 03/28/24 18:26 Temperature 98 F 03/28/24 18:26 Pulse Rate 92 03/28/24 18:26 Respiratory Rate 16 03/28/24 18:26 Blood Pressure 140/93 H 03/28/24 18:26 Pulse Oximetry 97 03/28/24 18:26 Oxygen Delivery Method Room Air 03/28/24 18:26 Medications Administered Medications: Generic Name Dose Route Start Last Admin Trade Name Hawa PRN Reason Stop Dose Admin Acetaminophen 1,000 mg 03/28/24 19:33 03/28/24 19:38 Acetaminophen 500 Mg Tablet PO 03/28/24 19:34 1,000 mg ONCE ONE Administration Medical Decision Making Lab Data Labs: Lab Results 03/28/24 03/28/24 03/28/24 Range/Units 18:41 18:55 19:07 WBC 9.56 (4.50-11.00) K/uL RBC 4.51 (4.00-5.20) m/uL Hgb 13.6 (12.0-16.0) gm/dL Hct 41.5 (33.0-51.0) % MCV 92 (80-100) fL MCH 30 (26-34) pg MCHC 33 (32-36) gm/dL RDW Coeff of Pool 12.5 (11.5-15.5) % Plt Count 283 (140-440) K/uL Neut % (Auto) 52.9 (42.0-72.0) % Lymph % (Auto) 40.1 (20-44) % [place] % (Auto) 6.0 (0.0-11.0) % Eos % (Auto) 0.5 (0.0-7.0) % Baso % (Auto) 0.4 (0.0-3.0) % Neut # (Auto) 5.06 (1.7-7.0) K/uL Lymph # (Auto) 3.83 H (0.90-2.90) K/uL [place] # (Auto) 0.60 (0.00-0.90) K/UL Eos # (Auto) 0.05 (0.00-0.50) K/uL Baso # (Auto) 0.04 (0.00-0.30) K/uL Abs Immat Gran (auto) 0.01 (0.00-0.30) K/uL Imm/Tot Granulo (auto) 0.1 % D-Dimer Quant (PE/DVT) < 0.27 (0.00-0.50) ug/ml Sodium 143 (135-149) mmol/L Potassium 4.1 (3.6-5.1) mmol/L Chloride 105 (96-114) mmol/L Carbon Dioxide 24 (20-32) mmol/L Anion Gap 14 (7-15) mEq/L BUN 11 (5-24) mg/dL Creatinine 0.5 (0.5-1.5) mg/dL Estimated Creat Clear 142.66 Estimated GFR 126 ml/min Glucose 96 (60-115) mg/dL Calcium 9.1 (8.4-10.6) mg/dL Magnesium 2.4 (1.5-2.6) mg/dL Total Bilirubin 0.3 (0.1-1.5) mg/dL Direct Bilirubin 0.0 (0.0-0.5) mg/dL AST 29 (12-35) U/L ALT 40 H (4-35) U/L Alkaline Phosphatase 61 (40-150) U/L NT-Pro-B Natriuret Pep < 20 pg/mL Total Protein 7.5 (6.0-8.3) g/dL Albumin 4.8 (3.3-5.0) g/dL Lipase 113 (23-300) U/L Urine HCG, Qual (Negative) SARS-CoV-2 (PCR) Negative SARS-CoV-2 (Negative) Influenza Type A (PCR) Negative PCR FLU A (Negative) Influenza Type B (PCR) Negative PCR FLU B (Negative) RSV (PCR) Negative PCR RSV (Negative) POC Troponin I 0.00 L (0.01-0.04) ng/ml 03/28/24 Range/Units 19:22 WBC (4.50-11.00) K/uL RBC (4.00-5.20) m/uL Hgb (12.0-16.0) gm/dL Hct (33.0-51.0) % MCV (80-100) fL MCH (26-34) pg MCHC (32-36) gm/dL RDW Coeff of Pool (11.5-15.5) % Plt Count (140-440) K/uL Neut % (Auto) (42.0-72.0) % Lymph % (Auto) (20-44) % [place] % (Auto) (0.0-11.0) % Eos % (Auto) (0.0-7.0) % Baso % (Auto) (0.0-3.0) % Neut # (Auto) (1.7-7.0) K/uL Lymph # (Auto) (0.90-2.90) K/uL [place] # (Auto) (0.00-0.90) K/UL Eos # (Auto) (0.00-0.50) K/uL Baso # (Auto) (0.00-0.30) K/uL Abs Immat Gran (auto) (0.00-0.30) K/uL Imm/Tot Granulo (auto) % D-Dimer Quant (PE/DVT) (0.00-0.50) ug/ml Sodium (135-149) mmol/L Potassium (3.6-5.1) mmol/L Chloride (96-114) mmol/L Carbon Dioxide (20-32) mmol/L Anion Gap (7-15) mEq/L BUN (5-24) mg/dL Creatinine (0.5-1.5) mg/dL Estimated Creat Clear Estimated GFR ml/min Glucose (60-115) mg/dL Calcium (8.4-10.6) mg/dL Magnesium (1.5-2.6) mg/dL Total Bilirubin (0.1-1.5) mg/dL Direct Bilirubin (0.0-0.5) mg/dL AST (12-35) U/L ALT (4-35) U/L Alkaline Phosphatase (40-150) U/L NT-Pro-B Natriuret Pep pg/mL Total Protein (6.0-8.3) g/dL Albumin (3.3-5.0) g/dL Lipase (23-300) U/L Urine HCG, Qual Negative (Negative) SARS-CoV-2 (PCR) (Negative) Influenza Type A (PCR) (Negative) Influenza Type B (PCR) (Negative) RSV (PCR) (Negative) POC Troponin I (0.01-0.04) ng/ml Discharge Plan Discharge Clinical Impression: Malaise, Nausea & vomiting Patient Disposition: Home, Self-Care Instructions: Acute Nausea and Vomiting (DC) Additional Instructions: Do not take Seroquel until you are feeling better. You may restart and 1 week Activity Level: Activity as Tolerated Discharge Diet: Regular Prescriptions: No Action quetiapine [Seroquel] 25 mg tablet 25 mg PO DAILY clonidine HCl 0.1 mg tablet 0.1 mg PO DAILY PRN metformin 500 mg tablet 1,000 mg PO BID Qty: 360 3RF lorazepam 0.5 mg tablet 0.5 mg PO BID PRN (Reason: anxiety) Qty: 60 1RF fluticasone propionate 50 mcg/actuation spray,suspension 1 spray intranasal BID Qty: 16 10RF Rx Instructions: administer into each nostril Follow Up/Referrals: Pedro Boudreaux MD [Primary Care Provider] - Stand Alone Forms: [employer] Info Instructions
[2024-03-28 18:26] VITALS: BP 140/93; PULSE 92; RESP 16; TEMP 36.6; O2SAT 97; BMI 33.3
[2024-03-28 19:18] LABS: Basophils Absolute Auto 0.04 K/uL (0.00-0.30); Basophils Percent Auto 0.4 % (0.0-3.0); Eosinophils Absolute Auto 0.05 K/uL (0.00-0.50); Eosinophils Percent Auto 0.5 % (0.0-7.0); Hematocrit 41.5 % (33.0-51.0); Hemoglobin* 13.6 gm/dL (12.0-16.0); Immature Granulocytes Abs Auto 0.01 K/uL (0.00-0.30); Immature Granulocytes Pct Auto 0.1 %; Lymphocytes Absolute Auto 3.83 K/uL (0.90-2.90); Lymphocytes Percent Auto 40.1 % (20-44); Mean Corpuscular HGB Conc 33 gm/dL (32-36); Mean Corpuscular Hemoglobin 30 pg (26-34); Mean Corpuscular Volume 92 fL (80-100); Neutrophils Absolute Auto 5.06 K/uL (1.7-7.0); Neutrophils Percent Auto 52.9 % (42.0-72.0); Platelet Count* 283 K/uL (140-440); RDW Coefficient of Variation % 12.5 % (11.5-15.5); Red Blood Count 4.51 m/uL (4.00-5.20); White Blood Count* 9.56 K/uL (4.50-11.00)
[2024-03-28 19:32] LABS: Albumin* 4.8 g/dL (3.3-5.0); Chloride* 105 mmol/L (96-114); Sodium* 143 mmol/L (135-149)
[2024-03-28 19:33] LABS: Ur HCG Qualitative* Negative (Negative)
[2024-03-28 19:33] LABS: Potassium* 4.1 mmol/L (3.6-5.1)
[2024-03-28 19:34] LABS: Creatinine* 0.5 mg/dL (0.5-1.5); Est. Creatinine Clearance* 142.66; Estimated Glomerular Filt Rate 126 ml/min
[2024-03-28 19:35] LABS: Alanine Aminotransferase* 40 U/L (4-35); Alkaline Phosphatase* 61 U/L (40-150); Anion Gap 14 mEq/L (7-15); Aspartate Amino Transferase* 29 U/L (12-35); Bilirubin Total* 0.3 mg/dL (0.1-1.5); Blood Urea Nitrogen* 11 mg/dL (5-24); Calcium* 9.1 mg/dL (8.4-10.6); Carbon Dioxide* 24 mmol/L (20-32); Glucose* 96 mg/dL (60-115); Lipase* 113 U/L (23-300); Magnesium* 2.4 mg/dL (1.5-2.6); Total Protein* 7.5 g/dL (6.0-8.3)
[2024-03-28] MEDS: ACETAMINOPHEN 500 MG TABLET 1000 MG PO (19:38)
[2024-03-28 19:40] LABS: Slide Review Reflex No
[2024-03-28 19:43] LABS: D Dimer Quantitative* < 0.27 ug/ml (0.00-0.50)
[2024-03-28 19:44] LABS: NT Pro B Type NatriureticPept* < 20 pg/mL
[2024-03-28 19:54] LABS: PCR FLU A Negative PCR FLU A (Negative); PCR FLU B Negative PCR FLU B (Negative); PCR RSV Negative PCR RSV (Negative); SARS PCR* Negative SARS-CoV-2 (Negative)
== END 2024-03-28 20:05 | disposition home or self-care (01) ==
PROVIDERS: Emergency Provider Family Medicine; PCP Family Medicine
DX: R53.81 Other malaise (principal); R11.2 Nausea with vomiting, unspecified
CPT/HCPCS: 36415; 80048; 80076; 81025; 83690; 83735; 83880; 84484; 84703; 85025; 85379; 87631; 93005; 99284; A9270

== ENCOUNTER 2024-04-23 07:46 | Emergency (ER) | payer BC, SELFPAY ==
--- OUTSIDE RECORDS SUMMARY | 2024-04-23 07:49 | XMS_ITS | Encounter Summary ---
Author Organization [place] Address [address] [place] [address] Care Team Providers Care Aircraft Maintenance Engineer Name Role Phone Madelaine Mitchell DO Unavailable [phone] Francesco Merritt MD Unavailable Gabe Carl MD Unavailable [phone] [place] [address] Primary Care Provider Madelaine Mitchell DO Unavailable [phone] Reason for Visit * Reason Onset Date Comments Refill Request 03/12/2024 Encounter Details Date Type Department Care Team (Late st Contact Info) Description 03/12/2024 T[facility] [address] [place] [address] Mdaelaine Mitchell DO [address] [place] [address] Refill Request Social History Tobacco Use Types Packs/Day Years [...] as of this encounter Visit Diagnoses Diagnosis Anovulation Female infertility associated with anovulation documented in this encounter Additional Health Concerns Assessment Noted Time PHQ-9 Depression Total Score: 21 023 10:16 AM CDT documented as of this encounter Care Teams Aircraft Maintenance Engineer Relationship Specialty Start Date End Date [facility], [address] [address] PCP - General 11/28/23 Madelaine Mitchell DO punch molder 07/26/16 Francesco Merritt MD [address] [place] [address] Family Medicine - Sports Medicine 12/14/18 Gabe Carl MD [address] [facility] [place] [address] Assigned PCP 05/09/21 Madelaine Mitchell DO [address] [address] Assigned OBGYN Provider 03/09/24 documented as of this encounter
--- OUTSIDE RECORDS SUMMARY | 2024-04-23 07:49 | XMS_ITS | Encounter Summary ---
Author Organization [place] Address [address] [place] [address]. [place] [address] Care Team Providers Care Automobile Upholstery Trim Installer Name Role Phone Madelaine Mitchell DO Unavailable [phone] Francesco Merritt MD Unavailable [phone] Gabe Carl MD Unavailable [phone] [place] [address] Primary Care Provider Madelaine Mitchell DO Unavailable [phone] Reason for Visit * Reason Onset Date Comments Medication Request 03/12/2024 Encounter Details Date Type Department Care Team (Late st Contact Info) Description 03/12/2024 MyC Medical Advice [facility] [address] [place] [address] Madelaine Mitchell DO [address] [facility] [address] [place] [address] Medication Request Social History Tobacco Use Types Packs/Day [...] Telephone Encounter - Queta Lisa RN - 03/12/2024 1:13 PM CST This pt saw you 02/08/24 for infertility. Malignant neoplasm of lung, unspecified laterality, unspecified part of lung (H) Pituitary adenoma (H) Alcohol use disorder History of benzodiazepine use She sends a mychart asking to start letrozole in Mar. She is no longer on the lorazepam. Do you want a follow up with her? Queta Morales RN BSN [place] visiting teacher SIZER documented in this encounter Plan of Treatment Not on file documented as of this encounter Visit Diagnoses Diagnosis Anovulation- Primary Female infertility associated with anovulation documented in this encounter Additional Health Concerns Assessment Noted Time PHQ-9 Depression Total Score: 21 023 10:16 AM CDT documented as of this encounter Care Teams Automobile Upholstery Trim Installer Relationship Specialty Start Date End Date [facility], [address] [address] PCP - General 11/28/23 Madelaine Mitchell DO endocrinology physician 07/26/16 Francesco Merritt MD [address] [place] [address] Family Medicine - Sports Medicine 12/14/18 Gabe Carl MD [address] [place] [address] [place] [address] Assigned PCP 05/09/21 Madelaine Mitchell DO [facility] [address] [place] [address] Assigned OBGYN Provider 03/09/24 documented as of this encounter
--- OUTSIDE RECORDS SUMMARY | 2024-04-23 07:49 | XMS_ITS | Referral Summary ---
Author Organization [facility] Address [address] [place] [address] Care Team Providers Care Hand Counter Name Role Phone Madelaine Mitchell DO Unavailable Francesco Merritt MD Unavailable Gabe Carl MD Unavailable [phone] [place] [address] Primary Care Provider Madelaine Mitchell DO Unavailable Encounters Date Type Department Care Team Description 03/27/2024 MyC Refill [facility] [address] [place] [phone] Madelaine Mitchell, DO Refill Request 03/12/2024 MyC Medical Advice [facility] [address] [place] [phone] Madelaine Mitchell, DO Medication Request 03/12/2024 MyC Refill [facility] [address] [place] [phone] Madelaine Mitchell, Refill Request 02/20/2024 MyC Medical Advice [facility] [address] [place] [phone] Madelaine Mitchell DO 02/20/2024 Orders Only [facility] [address] [place] [address] Melissa Lewis RN PCOS (polycystic ovarian syndrome) (Primary Dx); Pituitary adenoma (H); Carcinoma (H); Encounter for preconception consultation 02/20/2024 Telephone [facility] [address] [place] [address] Melissa Lewis, CASTRO Clinic Care Coordination - Follow-up 02/08/2024 Travel 02/08/2024 8:45 AM CDT Office Visit [facility] [address] [place] [address] Madelaine Mitchell DO Malignant neoplasm of lung, unspecified laterality, unspecified part of lung (H) (Primary Dx); Pituitary adenoma (H); Alcohol use disorder; History of benzodiazepine use 01/30/2024 MyC Medical Advice [facility] [address] [place] [address] Madelaine Mitchell DO from Last 3 Months Allergies Active Allergy [...] (ASTELIN) 0.1 % nasal sprayIndications :Post-nasal drip [place] 1 spray into both nostrils 2 times daily 1 Bottle 11 9 Active metFORMIN (GLUCOPHAGE-XR) 500 MG 24 hr tabletIndication s:PCOS (polycystic ovarian syndrome) TAKE 4 TABLETS BY MOUTH DAILY 360 tablet 1 9 Active nystatin (MYCOSTATIN) 474982 UNIT/ML suspension TAKE 6 ML BY MOUTH FOUR TIMES A DAY SWISH IN MOUTH AND SWALLOW. KEEP IN MOUTH LONG POSSIBLE PRIOR TO SWALLOWING. 0 Active letrozole (FEMARA) 2.5 MG tabletIndication s:Anovulation Take 1 tablet (2.5 mg) by mouth See Admin Instructions 35 tablet 1 Active Additional Information Patient not taking.Reported on 10/24/2022 methocarbamol (ROBAXIN) 500 MG tabletIndication s:Trapezius muscle spasm,Left arm numbness Take 1-2 tablets (500-1,000 mg) by mouth 4 times daily as needed for muscle spasms 20 tablet 2 Active Additional Information Patient not taking.Reported on 02/08/2024 diazepam (VALIUM) 2 MG tablet 1 TABLET BY MOUTH NIGHTLY FOR 14 NIGHTS, THEN DISCONTINUE. 2 Active hydrOXYzine (ATARAX) 25 MG tablet Take 25 mg by mouth 3 times daily as needed for itching. Active LORazepam (ATIVAN) 0.5 MG tablet Take 0.5 mg by mouth 2 times daily as needed for anxiety. Active letrozole (FEMARA) 2.5 MG tabletIndication s:Anovulation Take 1 tablet (2.5 mg) by mouth daily. 5 tablet 1 4 Active Active Problems Problem Noted Date Diagnosed Date Pituitary adenoma 02/15/2024 Overview (02/15/2024): 6 mm by MRI, 2023, Normal labs. 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 Plan colp 04/25/18 [place] - no visible lesions, no bx. Plan pap due in 1 year pap from previous pap 03/13/19 Pap reminder letter sent. ([facility]) 03/14/19 TE states pt is 25 weeks (ASAD 06/27/19), no appts in chart. ([facility]) CCT tracking Headache 12/16/2016 PCOS (polycystic [...] PF 02/04/2019, 01/17/2018,04/11/2017 MMR 10/24/2001,11/06/1990 Meningococcal ACWY (Menactra ) 07/26/2006 Meningococcal,unspecified 07/26/2006 OPV, trivalent, live 12/08/1993,11/06/18 [...] 70 01/05/2024 2:45 AM CDT Temperature 35.8 C (96.4 F) 01/05/2024 12:30 AM CDT Respiratory Rate 19 01/05/2024 2:05 AM CDT Oxygen Saturation 100% 01/05/2024 2:45 AM CDT Inhaled Oxygen Concentration - - Weight 92.1 kg (203 lb) 02/08/2024 8:38 AM CDT Height 170.2 cm (5' 7) 02/08/2024 8:38 AM CDT Body Mass Index 31.79 02/08/2024 8:38 AM CDT Plan of Treatment Not on file Procedures Procedure Name Priority Date/Time Associated Diagnosis Comments HPV HIGH RISK TYPES DNA CERVICAL Routine 03/28/2018 9:20 AM MONORAIL CRANE OPERATOR PCOS (polycystic ovarian syndrome) PAP IMAGED THIN LAYER SCREEN Routine 03/28/2018 9:09 AM MONORAIL CRANE OPERATOR Encounter for general adult medical examination with abnormal findings HIV ANTIGEN ANTIBODY COMBO Routine 05/05/2016 9:51 AM MONORAIL CRANE OPERATOR test positive from Last 3 Months or Most Recently Relevant to Health Maintenance Results * (ABNORMAL) HPV High Risk Types DNA Cervical (03/28/2018 9:20 AM MONORAIL CRANE OPERATOR) HPV Source SurePath 04/03/2018 7:38 AM MONORAIL CRANE OPERATOR [facility] HPV 16 DNA Negative NEG^Nega tive 04/03/2018 4:18 PM MONORAIL CRANE OPERATOR [facility] HPV 18 DNA Negative NEG^Nega tive 04/03/2018 4:18 PM MONORAIL CRANE OPERATOR [facility] Other HR HPV Positive(A) NEG^Nega tive 04/03/2018 4:18 PM MONORAIL CRANE OPERATOR [facility] Final Diagnosis This patient's sample is positive for other HR HPV DNA (types 31, 33, 35, 39, 45, 51, 52, 56, 58, 59, 66 or 68), not HPV 16 or HPV 18 DNA. This result requires clinical correlation with concurrent cytology findings. 04/03/2018 4:18 PM MONORAIL CRANE OPERATOR [facility] Comment: This test was developed and its performance characteristics determined by the [facility], [facility]. It has not been cleared or approved by the FDA. The laboratory is regulated under CLIA as qualified to perform high-complexity testing. This test is used for clinical purposes. It should not be regarded as investigational or for research. (Note) METHODOLOGY: The Allison yesy 4800 system uses automated extraction, simultaneous amplification of HPV (L1 region) and beta-globin, followed by real time detection of fluorescent labeled HPV and beta globin using specific oligonucleotide probes . The test specifically identifies types HPV 16 DNA and HPV 18 DNA while concurrently detecting the rest of the high risk types (31, 33, 35, 39, 45, 51, 52, 56, 58, 59, 66 or 68). COMMENTS: This test is not intended for use as a screening device for women under age 30 with normal cervical cytology. Results should be correlated with cytologic and histologic findings. Close clinical followup is recommended. Specimen Description Cervical Cells 04/03/2018 7:38 AM MONORAIL CRANE OPERATOR [facility] Comment:[id number] 03/28/2018 9:20 AM MONORAIL CRANE OPERATOR 03/28/2018 2:56 PM MONORAIL CRANE OPERATOR us Tristen Spann APRN MACHINE OPERATOR [facility] - BLOOD ORDERABL ES Final Result [facility] [address] [place] [address] * (ABNORMAL) Pap imaged thin layer screen reflex to HPV if ASCUS - recommend age 25 - 29 (03/28/2018 9:09 AM MONORAIL CRANE OPERATOR) PAP ASC-US(A) JOSE JUAN Manzano Report Patient Name: MADI YANG MR#: [id number] Specimen #: [id number] Collected: 03/28/2018 Received: 03/29/2018 Reported: 04/02/2018 14:41 Ordering Phy(s): TRISTEN SPANN For improved result formatting, select 'View Enhanced Report Format' under Linked Documents section. SPECIMEN/STAIN PROCESS: Pap imaged thin layer prep screening (Surepath, FocalPoint with guided screening) Pap-Cyto x 1, Pap with reflex to HPV if ASCUS x 1 SOURCE: Cervical, endocervical Pap imaged thin layer prep screening (Surepath, FocalPoint with guided screening) SPECIMEN ADEQUACY: Satisfactory for evaluation. -Transformation zone component present. CYTOLOGIC INTERPRETATION: Epithelial cell abnormality: squamous cell: atypical squamous cells-of undetermined significance (ASC-US). Electronically signed out by: Carmine Stevens M.D. Processed and screened at [facility] CLINICAL HISTORY: LMP: 03/05/2018 A previous normal pap Date of Last Pap: 01/01/2015, Papanicolaou Test Limitations: Cervical cytology is a screening test with limited sensitivity; regular screening is critical for cancer prevention; Pap tests are primarily effective for the diagnosis/preventi on of squamous cell carcinoma, not adenocarcinomas or other cancers. TESTING LAB LOCATION: [address] [address] COLLECTION SITE: Client: [facility] Location: JAVON MANZANO (R) Cytologic material (specimen) 03/28/2018 9:09 AM MONORAIL CRANE OPERATOR 03/29/2018 11:25 AM MONORAIL CRANE OPERATOR us Tristen Spann DIGITAL ADVERTISING ANALYST MACHINE OPERATOR [facility] - [facility] L SPECIMEN Final Result COPATH * HIV Antigen Antibody Combo (05/05/2016 9:51 AM MONORAIL CRANE OPERATOR) HIV Antigen Antibody Combo Nonreactive HIV-1 p24 Ag & HIV-1/HIV-2 Ab Not Detected NR [facility] Blood specimen (specimen) 05/05/2016 9:51 AM MONORAIL CRANE OPERATOR 05/05/2016 9:56 AM MONORAIL CRANE OPERATOR us Madelaine Mitchell DO LAB - BLOOD ORDERABLES Fi nal Result [facility] [address] from Last 3 Months or Most Recently Relevant to Health Maintenance Insurance BCBS OUT OF [facility] BCBS OUT OF STATE BCBS OUT OF STATE Care Teams Hand Counter Relationship Specialty Start Date End Date [address] [address] PCP - General 11/28/23 Madelaine Mitchell DO route relief driver 07/26/16 Francesco Merritt MD [address] [place] [address] Family Medicine - Sports Medicine 12/14/18 Gabe Carl MD [address] [place] [address] [place] [address] Assigned PCP 05/09/21 Madelaine Mitchell DO [facility] [address] [address] Assigned OBGYN Provider 03/09/24
--- OUTSIDE RECORDS SUMMARY | 2024-04-23 07:49 | XMS_ITS | Continuity of Care Document ---
Author Name NwHIN User [email or web address] llowed Address Unknown Organization Unknown Address Unknown Alerts, Allergies and Adverse Reactions FILTER APPLIED:All Known Active Allergies Substance Reaction Onset Status (SULFA DRUGS) Active Procedures FILTER APPLIED:Only known Procedures with Onset Date within the last 5 years Procedure Date Procedure Provider Additiona l Information Status D-DIMER,QUANTITATIVE (75098) Completed CBC W PLT NO DIFF (27706) Completed BASIC METABOLIC PANEL (30541) Completed MRI BRAIN STEM W/O W/DYE (29928) Completed METABOLIC PANEL TOTAL CA (66109) Completed COMPREHEN METABOLIC PANEL (61531) Completed CT THORAX DX C- (64837) Completed ASSAY THYROID STIM HORMONE (04416) Completed ANTINUCLEAR ANTIBODIES (JAYDEN) (25449) Completed EMERGENCY DEPT VISIT MOD MDM (56443) Completed COMPLETE CBC W/AUTO DIFF WBC (68811) Completed ASSAY OF LIPASE (69381) Completed HEPATIC FUNCTION PANEL (45682) Completed ECHO EXAM OF ABDOMEN (14425) Completed THER/PROPH/DIAG INJ SC/IM (73575) Completed METABOLIC PANEL TOTAL CA (76952) Completed TX/PRO/DX INJ NEW DRUG ADDON (69581) Completed ROUTINE VENIPUNCTURE (20843) Completed THER/PROPH/DIAG INJ IV PUSH (83917) Completed ROUTINE VENIPUNCTURE (27190) Completed EMERGENCY DEPT VISIT HI MDM (05414) Completed EMERGENCY DEPT VISIT MOD MDM (69605) Completed TX/PRO/DX INJ NEW DRUG ADDON (00090) Completed THER/PROPH/DIAG INJ IV PUSH (68622) Completed HYDRATE IV INFUSION ADD-ON (58474) Completed MEASURE BLOOD OXYGEN LEVEL (75829) Completed C-REACTIVE PROTEIN (02145) Completed COMPLETE CBC W/AUTO DIFF WBC (89304) Completed ASSAY OF LACTIC ACID (81375) Completed CT THORAX DX C- (06540) Completed CT ABD PELV W/CONTRAST (77479) Completed COMPREHEN METABOLIC PANEL (79756) Completed Encounters FILTER APPLIED:Only known Encounters with Admission Date within the last 5 years Encounter Location Admission Discharge Billing Code Notereader Shellie schulz Emergency Carly stovall Emergency Armando Zarco Outpatient Robb Boudreaux Outpatient Robb Boudreaux Outpatient Robb Boudreaux Outpatient [facility] Outpatient Robb Boudreaux Outpatient Veronika Souza Outpatient Veronika Souza Unknown [id number] MAGNO PACHECO Emergency [id number] WILLIAM EUCEDA Emergency [facility] Outpatient [facility]
--- OUTSIDE RECORDS SUMMARY | 2024-04-23 07:49 | XMS_ITS | Encounter Summary ---
Author Organization [facility] Address [address] [place] [address]. [place] [address] Care Team Providers Care Test Center Manager Name Role Phone Madelaine Mitchell DO Unavailable Francesco Merritt MD Unavailable Gabe Carl MD Unavailable [phone] [place] [address] Primary Care Provider Madelaine Mitchell DO Unavailable [phone] Reason for Visit * Reason Onset Date Comments Refill Request 03/27/2024 Encounter Details Date Type Department Care Team (Late st Contact Info) Description 03/27/[address] [facility] [address] [place] [address] Madelaine Mitchell DO [address] [place] [address] Refill Request Social History Tobacco Use Types [...] encounter Miscellaneous Notes * Telephone Encounter - Ruby Paul RN - 03/28/2024 9:45 AM CST Should have refill on file. Mychart sent to pt to confirm. Ruby Rubio RN SILVERING APPLICATOR [place] T GUIDE documented in this encounter Plan of Treatment Not on file documented as of this encounter Visit Diagnoses Diagnosis Anovulation Female infertility associated with anovulation documented in this encounter Additional Health Concerns Assessment Noted Time PHQ-9 Depression Total Score: 21 023 10:16 AM CDT documented as of this encounter Care Teams Test Center Manager Relationship Specialty Start Date End Date [facility], [address] [address] PCP - General 11/28/23 Madelaine Micthell DO machinist wood 07/26/16 Francesco Merritt MD [facility] [address] [place] [address] Family Medicine - Sports Medicine 12/14/18 Gabe Carl MD [address] [place] [address] [place] [address] Assigned PCP 05/09/21 Madelaine Mitchell DO [address] [address] Assigned OBGYN Provider 03/09/24 documented as of this encounter
--- OUTSIDE RECORDS SUMMARY | 2024-04-23 07:49 | XMS_ITS | Clinical Summary ---
Author Organization [facility] Address [address] [place] [address] Care Team Providers Care Radio Journalist Name Role Phone Madelaine Mitchell DO Unavailable [phone] Francesco Merritt MD Unavailable [phone] Gabe Carl MD Unavailable [phone] [place] [address] Primary Care Provider Madelaine Mitchell DO Unavailable [phone] Allergies Active Allergy Reactions Criticality Noted Date [...] (ASTELIN) 0.1 % nasal sprayIndications :Post-nasal drip [place] 1 spray into both nostrils 2 times daily 1 Bottle 11 9 Active metFORMIN (GLUCOPHAGE-XR) 500 MG 24 hr tabletIndication s:PCOS (polycystic ovarian syndrome) TAKE 4 TABLETS BY MOUTH DAILY 360 tablet 1 9 Active nystatin (MYCOSTATIN) 216057 UNIT/ML suspension TAKE 6 ML BY MOUTH [...] (07/14/2021): Added automatically from request for surgery [id number] 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 Plan colp 04/25/18 [place] - no visible lesions, no bx. Plan pap due in 1 year pap from previous pap 03/13/19 Pap reminder letter sent. ([facility]) 03/14/19 TE states pt is 25 weeks (ASAD 06/27/19), no appts in chart. ([facility]) CCT tracking Headache 12/16/2016 PCOS (polycystic [...] Department Care Team Description 03/27/2024 MyC Refill [facility] [address] [place] [phone] Madelaine Mitchell, DO Refill Request 03/12/2024 MyC Medical Advice [facility] [address] [place] [phone] Madelaine Mitchell, Medication Request 03/12/2024 MyC Refill [facility] [address] [place] [phone] Madelaine Mitchell, Refill Request 02/20/2024 MyC Medical Advice [facility] [address] [place] [phone] Madelaine Mitchell, 02/20/2024 Orders Only [facility] [address] [address] Melissa Lewis, CASTRO PCOS (polycystic ovarian syndrome) (Primary Dx); Pituitary adenoma (H); Carcinoma (H); Encounter for preconception consultation 02/20/2024 Telephone [facility] [place] [address], [place] [address] Melissa Lewis RN Clinic Care Coordination - Follow-up 02/08/2024 8:45 AM CDT Office Visit [facility] [address] [place] [phone] Madelaine Mitchell DO Malignant neoplasm of lung, unspecified laterality, unspecified part of lung (H) (Primary Dx); Pituitary adenoma (H); Alcohol use disorder; History of benzodiazepine use 02/08/2024 Travel 01/30/2024 MyC Medical Advice [facility] [address] [facility] [address] [place] [phone] Madelaine Mitchell DO from Last 3 Months Immunizations Name Administration [...] Last Done Comments ADVANCE CARE PLANNING 1989 HEPATITIS A IMMUNIZATION (2 of 2 - Risk 2-dose series) 01/25/2007 07/26/2006, 07/26/2006 HEPATITIS C SCREENING 07/28/2007 Pneumococcal Vaccine: Pediatrics (0 to 5 Years) and At-Risk Patients (6 to 49 Years) (1 of 2 - PCV) 2008 YEARLY PREVENTIVE VISIT 03/28/2019 03/28/20 18, 04/11/2017, 04/11/2016, Additional history exists PAP 08/20/2021 08/20/2020, 05/0 09/2020, 08/19/2019, Additional history exists PHQ-9 04/26/2023 10/24/2022, 04/17, 09/25/2018, Additional history exists ANNUAL REVIEW OF HM ORDERS 10/25/2023 10/24/2022 COVID-19 Vaccine ( - season) 2023 INFLUENZA VACCINE (#1) 2023 , 02/04/2019, 01/17/2018, [...] Additional history exists PAP FOLLOW-UP Completed 08/20/2020, 050 09/2020, 08/19/2019, Additional history exists RSV MONOCLONAL ANTIBODY Aged Out No l onger eligible based on patient's age to complete this topic Procedures Procedure Name Priority Date/Time Associated Diagnosis Comments HPV HIGH RISK TYPES DNA CERVICAL Routine 03/28/2018 9:20 AM RN ORTHOPEDIC PCOS (polycystic ovarian syndrome) PAP IMAGED THIN LAYER SCREEN Routine 03/28/2018 9:09 AM RN ORTHOPEDIC Encounter for general adult medical examination with abnormal findings HIV ANTIGEN ANTIBODY COMBO Routine 05/05/2016 9:51 AM RN ORTHOPEDIC test positive from Last 3 Months or Most Recently Relevant to Health Maintenance Results * (ABNORMAL) HPV High Risk Types DNA Cervical (03/28/2018 9:20 AM RN ORTHOPEDIC) HPV Source SurePath 04/03/2018 7:38 AM RN ORTHOPEDIC [facility] HPV 16 DNA Negative NEG^Nega tive 04/03/2018 4:18 PM RN ORTHOPEDIC [facility] HPV 18 DNA Negative NEG^Nega tive 04/03/2018 4:18 PM RN ORTHOPEDIC [facility] Other HR HPV Positive(A) NEG^Nega tive 04/03/2018 4:18 PM RN ORTHOPEDIC [facility] Final Diagnosis This patient's sample is positive for other HR HPV DNA (types 31, 33, 35, 39, 45, 51, 52, 56, 58, 59, 66 or 68), not HPV 16 or HPV 18 DNA. This result requires clinical correlation with concurrent cytology findings. 04/03/2018 4:18 PM RN ORTHOPEDIC [facility] Comment: This test was developed and its performance characteristics determined by the [facility], Molecular Diagnostics Laboratory. It has [...] Specimen Description Cervical Cells 04/03/2018 7:38 AM RN ORTHOPEDIC [facility] Comment:[id number] 03/28/2018 9:20 AM RN ORTHOPEDIC 03/28/2018 2:56 PM RN ORTHOPEDIC us Tristen Spann APRN ASSEMBLY STOCK SUPERVISOR LAB - BLOOD ORDERABL ES Final Result [facility] [address] [place] [address] * (ABNORMAL) Pap imaged thin layer screen reflex to HPV if ASCUS - recommend age 25 - 29 (03/28/2018 9:09 AM RN ORTHOPEDIC) PAP ASC-US(A) JOSE JUAN Manzano Report Patient Name: MADI YANG MR#: [id number] Specimen #: [id number] Collected: 03/28/2018 Received: 03/29/2018 Reported: 04/02/2018 14:41 [...] Carmine Stevens M.D. Processed and screened at [facility], [facility] CLINICAL HISTORY: LMP: 03/05/2018 A previous normal pap Date of Last Pap: 01/01/2015, Papanicolaou Test Limitations: Cervical cytology is a screening test with limited sensitivity; regular screening is critical for cancer prevention; Pap tests are primarily effective for the diagnosis/preventi on of squamous cell carcinoma, not adenocarcinomas or other cancers. TESTING LAB LOCATION: [address] [address] COLLECTION SITE: Client: [facility] Location: JAVON MANZANO (R) Cytologic material (specimen) 03/28/2018 9:09 AM RN ORTHOPEDIC 03/29/2018 11:25 AM RN ORTHOPEDIC us Tristen Spann ARMED CUSTOM PROTECTION OFFICER ASSEMBLY STOCK SUPERVISOR LAB - OPTIME CLINICA L SPECIMEN Final Result COP[facility] * HIV Antigen Antibody Combo (05/05/2016 9:51 AM RN ORTHOPEDIC) HIV Antigen Antibody Combo Nonreactive HIV-1 p24 Ag & HIV-1/HIV-[address] [facility] Blood specimen (specimen) 05/05/2016 9:51 AM RN ORTHOPEDIC 05/05/2016 9:56 AM RN ORTHOPEDIC us Madelaine Mitchell DO LAB - BLOOD ORDERABLES Fi nal Result [facility] [address] from Last 3 Months or Most Recently Relevant to Health Maintenance Insurance BCBS OUT OF [facility] BCBS OUT OF STATE BCBS OUT OF STATE Care Teams Radio Journalist Relationship Specialty Start Date End Date [address] [address] PCP - General 11/28/23 Madelaine Mitchell DO information systems security specialist 07/26/16 Francesco Merritt MD [address] [place] [address] Family Medicine - Sports Medicine 12/14/18 Gabe Carl MD [address] [place] [address] [place] [address] Assigned PCP 05/09/21 Madelaine Mitchell DO [facility] [address] [address] Assigned OBGYN Provider 03/09/24
--- OUTSIDE RECORDS SUMMARY | 2024-04-23 07:49 | XMS_ITS | Clinical Summary ---
Author Organization [facility] Address [place], [place] [address] Care Team Providers Care Pet Care Assistant Name Role Phone Pedro Boudreaux MD Primary Care Provider Leana Syed RN, BSN Unavailable [phone] Ceferino Catalan MD Unavailable [phone] Allergies Active Allergy Reactions Criticality Noted Date Comments Polymyxin B Sulf-Trimethoprim Edema 2017 Swelling in eye Sulfa (Sulfonamide Antibiotics) Edema 12/2005 Medications * This document contains information received from the source organization and may not represent a complete record from that organization. albuterol HFA (PRO-AIR; VENTOLIN; PROVENTIL) 90 mcg/actuation inhaler Inhale 2 Puffs by mouth every 4 hours if needed. 11/02/2022 Active medication order composer collagen Activ e cholecalciferol , vitamin D3, (VITAMIN D3 ORAL) Take 1 Tablet by mouth once daily. Active LORazepam (ATIVAN) 0.5 mg tab Take 0.5 mg by mouth 2 times daily if needed for Anxiety. Active fluticasone (50 mcg per actuation) nasal solution (FLONASE) Inhale 1 [place] to both nostrils once daily if needed for Rhinitis. 01/10/2023 Active vitamins-folic acid 1 mg ( RX) tablet Take 1 Tablet by mouth once daily. Active metFORMIN (GLUCOPHAGE) 500 mg tablet Take 1,000 mg by mouth two times daily with meals. Active zolpidem (AMBIEN) 5 mg tablet Take 5 mg by mouth at bedtime if needed for Sleep. Active methocarbamoL (ROBAXIN) 500 mg tabletIndicatio ns:Carcinoid tumor of right lung Take 1 Tablet (500 mg) by mouth four times daily. 28 Tablet 06/21/2023 9:11 AM SALESFORCE DEVELOPER 06/21/2023 Active hydrOXYzine pamoate (VISTARIL) 50 mg capsuleIndicati ons:Carcinoid tumor of right lung Take 1 Capsule (50 mg) by mouth every 8 hours if needed for Itching or Anxiety. 21 Capsule 06/21/2023 9:11 AM SALESFORCE DEVELOPER 06/21/2023 Active oxyCODONE (ROXICODONE) 5 mg immediate release tabletIndicatio ns:Carcinoid tumor of right lung Take 1-2 Tablets (5-10 mg) by mouth every 4 hours if needed for Pain (moderate - severe). 20 Tablet 06/21/2023 9:11 AM SALESFORCE DEVELOPER 06/21/2023 Active sennosides-docu sate (SENOKOT S) (8.6-50 mg) tabletIndicatio ns:Carcinoid tumor of right lung Take 1-4 Tablets by mouth two times daily. 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 Plan colp 04/25/18 [place] - no visible lesions, no bx. Plan pap due in 1 year pap from previous pap 03/13/19 Pap reminder letter sent. ([facility]) 03/14/19 TE states pt is 25 weeks (ASAD 06/27/19), no appts in chart. ([facility]) CCT tracking PCOS (polycystic ovarian syndrome) 04/26/2017 Pre-diabetes 04/07/2008 Irregular menses 03/21/2008 Exercise-induced asthma Resolved Problems Problem Noted Date Diagnosed Date Resolved Date Corneal ulcer, unspecified 08/25/2006 0 04/18/2008 FEVER 04/26/2017 Immunizations Name Administration Dates Next Due DTP [...] Date Recorded PHQ-2 TOTAL SCORE 0 01/16/2024 Interpersonal Safety Answer Date Record ed Are you being hit, kicked, p ushed or yelled at (see row info)? 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 Not on file Not on file Not on file Obstetrics History Para Term [...] 87 12/27/2023 11:25 AM CDT Temperature 36.9 C (98.4 F) 12/27/2023 7:42 AM CDT Respiratory Rate 16 12/27/2023 11:25 AM CDT [...] 18-79 Completed 11/12/2010 Pneumococcal series for age 6-49 Aged Out No longer eligible based on patient's age to complete this topic Procedures Procedure Name Priority Date/Time Associated Diagnosis Comments SENIOR COMPLIANCE OFFICER THIN PREP PAP SCREEN IMAGED Routine 08/20/2020 1:00 PM CDT ANTI HIV 1/2 Routine 11/12/2010 11:20 AM CDT Screen for STD (sexually transmitted disease) ANTI HCV Routine 11/12/2010 11:20 AM CDT Screen for STD (sexually transmitted disease) from Last 3 Months or Most Recently Relevant to Health Maintenance Results * SENIOR COMPLIANCE OFFICER THIN PREP PAP SCREEN IMAGED (08/20/2020 1:00 PM CDT) Case Report Gynecologic Cytology Report Case: [id number] Authorizing Provider: Megan Hernandez MD Collected: 08/20/2020 1300 Ordering Location: [facility] Received: 08/23/2020 0927 First Screen: Bernabe Cummins Specimen: SENIOR COMPLIANCE OFFICER ThinPrep Vial Screening, Cervical/Vaginal 09/01/2020 12:03 PM CDT [facility] INTERPRETATION/ RESULT NEGATIVE FOR INTRAEPITHELIAL LESION OR MALIGNANCY (NIL) (none) 09/01/2020 12:03 PM CDT [facility] IMEN ADEQUACY Satisfactory for evaluation Endocervical component present 09/01/2020 12:03 PM CDT [facility] HPV REQUEST HPV and PAP 09/01/2020 12:03 PM CDT [facility] Date of LMP 07/30/2020 09/01/2020 12:03 PM CDT [facility] Last Pap Date 08/19/2019 09/01/2020 12:03 PM CDT [facility] Last Pap Result NIL 12:03 PM CDT [facility] Additional Information 09/01/2020 12:03 PM CDT [facility] Comment: Interpreted at [facility] - [address], [place] [address] Automated Review Successful 09/01/2020 12:03 PM CDT [facility] Comment:Specimen processed s uccessfully by automated pickle pumper device, ThinPrep Imaging System, [employer] ANCILLARY TESTING SENIOR COMPLIANCE OFFICER HPV Ordered, Please see separate report 09/01/2020 12:03 PM CDT [facility] Note The pap test is [...] and malignant lesions. 09/01/2020 12:03 PM CDT [facility] Other (Cervical/Vagina l) 08/20/2020 1:00 PM CDT 08/23/2020 9:27 AM CDT us Megan Hernandez MD PATHOLOGY/CYTOLOGY Final Result [facility] [address] [place] [address], [place] * ANTI HCV (11/12/2010 11:20 AM CDT) ANTI HCV Non-reacti ve [facility] Blood specimen (specimen) BLOOD SPECIMEN / Unknown 11/12/2010 11:20 AM CDT 11/12/2010 11:08 AM CDT us Capri Marquez MD SEND OUTS F inal Result [facility] INTERNAL ZIP [address] [place] [address] * ANTI HIV 1/2 (11/12/2010 11:20 AM CDT) ANTI HIV 1/2 Non-reacti ve [facility] Blood specimen (specimen) BLOOD SPECIMEN / Unknown 11/12/2010 11:20 AM CDT 11/12/2010 11:08 AM CDT us Capri Marquez MD SEND OUTS F inal Result [facility] INTERNAL ZIP [address] [address] from Last 3 Months or Most Recently Relevant to Health Maintenance Insurance [employer] OF NON-[place]-ITS [facility] OF NON-[place]-ITS Advance Directives * Full Code (Latest Code [...] Code Status Discussion: Reviewed Preferences Care Teams Pet Care Assistant Relationship Specialty Start Date End Date Pedro Boudreaux MD [address] [place] [address] PCP - General Family Practice 05/10/23 Leana Syed, RN, BSN [address] [place] [address] Nurse Navigator - Oncology Registered Nurse 05/29/23 Ceferino Catalan MD [address] [place] [address] Surgery - Cardiothoracic 06/01/23
--- OUTSIDE RECORDS SUMMARY | 2024-04-23 07:50 | XMS_ITS | Encounter Summary ---
Author Organization [place] Address [address] [place] [address]. [place] [address] Care Team Providers Care Solvent Recoverer Name Role Phone Madelaine Mitchell DO Unavailable [phone] Francesco Merritt MD Unavailable Gabe Carl MD Unavailable [phone] [place] [address] [facility] Primary Care Provider Madelaine Mitchell DO Unavailable [phone] Encounter Details Date Type Department Care Team (Late st Contact Info) Description 01/30/[address] [facility] Women's [facility] [address] [place] [phone] Madelaine Mitchell DO [address] [place] [address] Social History Tobacco Use Types Packs/Day Years [...] to schedule next week. Marcella Arce RN [facility] * Telephone Encounter - Madelaine Mitchell DO - 01/31/2024 4:53 PM CDT Ok to add sooner, ok to double book. Usually works well to double book at physical slot .Dr. Madelaine Mitchell DO Obstetrics and Gynecology [facility] [place] * Telephone Encounter - Grisel Catalan RN - 01/31/2024 8:30 AM CDT Please address the my chart message. Re: madison Catalan RN documented in this encounter Plan of Treatment Not on file documented as of this encounter Visit Diagnoses Not on filedocumented in this encounter Additional Health Concerns Assessment Noted Time PHQ-9 Depression Total Score: 21 023 10:16 AM CDT documented as of this encounter Care Teams Solvent Recoverer Relationship Specialty Start Date End Date [address] [address] PCP - General 11/28/23 Madelaine Mitchell DO fund raiser 07/26/16 Francesco Merritt MD [facility] [place], [place] [id number] [place] [address] Family Medicine - Sports Medicine 12/14/18 Gabe Carl MD [address] [facility] VINIC[facility]US [place]ANN[place] [id number] Assigned PCP 05/09/21 Madelaine Mitchell DO [address] [place], [place] [address] Assigned OBGYN Provider 03/09/24 documented as of this encounter
--- OUTSIDE RECORDS SUMMARY | 2024-04-23 07:50 | XMS_ITS | Encounter Summary ---
Author Organization [place] Address [address] [place] [address]. [place] [address] Care Team Providers Care Cementer Machine Name Role Phone Madelaine Mitchell DO Unavailable Rosamaria Jones MD Primary Care Provider [phone] Francesco Merritt MD Unavailable [phone] Gabe Carl MD Unavailable [phone] Danilele Alcantar MD Unavailable [phone] [facility] Primary Care Provider Madelaine Mitchell DO Unavailable Encounter Details Date Type Department Care Team (Late st Contact Info) Description 08/27/2021 [facility] Medical Advice [address] 5[address] [place] [address] Danielle Wright, PT [address] [address] Social History Tobacco Use Types Packs/Day Years [...] Depression Total Score: 10 022 9:03 AM HAND KISS SETTER documented as of this encounter Care Teams Cementer Machine Relationship Specialty Start Date End Date Rosamaria Jones MD [address] [facility] 200 [place] [address] PCP - General Internal Medicine 10/06/18 11/27/[address] [address] PCP - General 11/28/23 Madelaine Mitchell DO computerized mill recorder 07/26/16 Francesco Merritt MD [address] [place] [address] Family Medicine - Sports Medicine 12/14/18 Gabe Carl MD [address] [place] [address] [place] [address] Assigned PCP 05/09/21 Danielle Alcantar MD [address] [place] [address] Assigned Musculoskeletal Provider 07/18/21 02/03/23 Madelaine Mitchell DO [address] [address] Assigned OBGYN Provider 03/09/24 documented as of this encounter
--- OUTSIDE RECORDS SUMMARY | 2024-04-23 07:50 | XMS_ITS | Encounter Summary ---
Author Organization [place] Address [address] [place] [address]. [place] [address] Care Team Providers Care Baseball Pitcher Name Role Phone Madelaine Mitchell DO Unavailable Rosamaria Jones MD Primary Care Provider [phone] Francesco Merritt MD Unavailable Gabe Carl MD Unavailable [phone] Danielle Alcantar MD Unavailable [facility] Primary Care Provider Madelaine Mitchell DO Unavailable Encounter Details Date Type Department Care Team (Late st Contact Info) Description 01/08/2023 MyC Medical Advice [facility] [address] [address] Francesco Merritt MD [address] [place] [address] [address] [place] [address] Social History Tobacco Use Types [...] documented as of this encounter Care Teams Baseball Pitcher Relationship Specialty Start Date End Date Rosamaria Jones MD [address] [facility] 200 [place] [address] PCP - General Internal Medicine 10/06/18 11/27/[address] [address] PCP - General 11/28/23 Madelaine Mitchell DO travel sales consultant 07/26/16 Francesco Merritt MD [facility] [address] Family Medicine - Sports Medicine 12/14/18 Gabe Carl MD [address] [facility] [place] [address] Assigned PCP 05/09/21 Danielle Alcantar MD [address] [place], [place] [address] Assigned Musculoskeletal Provider 07/18/21 02/03/23 Madelaine Mitchell DO [address] [address] Assigned OBGYN Provider 03/09/24 documented as of this encounter
--- OUTSIDE RECORDS SUMMARY | 2024-04-23 07:50 | XMS_ITS | Encounter Summary ---
Author Organization [place] Address [address] [place] [address]. [place] [address] Care Team Providers Care Police Manager Name Role Phone Madelaine Mitchell DO Unavailable [phone] Francesco Merritt MD Unavailable [phone] Gabe Carl MD Unavailable [phone] [place] [address] [facility] Primary Care Provider Madelaine Mitchell DO Unavailable Encounter Details Date Type Department Care Team (Late st Contact Info) Description 02/20/2024 MyC Medical Advice [facility] Women's [place] [address] [place] [phone] Madelaine Mitchell DO [address] [place] [address] Social History Tobacco Use Types Packs/Day Years [...] Telephone Encounter - Marcella Arce RN - 02/22/2024 9:58 AM CST Please see mychart: Pt response CASTRO Baez RMATION RECEPTIONIST * Telephone Encounter - Marcella Arce RN - 02/22/2024 8:01 AM CST Please see mychart message: Pt response CASTRO Baez RMATION RECEPTIONIST * Telephone Encounter - Marcella Arce RN - 02/21/2024 11:00 AM INFORMATION RECEPTIONIST Please mychart message: Pt response to questions. CASTRO Baez RMATION RECEPTIONIST * Telephone Encounter - Grisel Catalan RN - 02/20/2024 11:46 AM INFORMATION RECEPTIONIST Please address the chart message. Last OV 02/08/24. Clif Catalan RN RMATION RECEPTIONIST documented in this encounter Plan of Treatment Not on file documented as of this encounter Visit Diagnoses Not on filedocumented in this encounter Additional Health Concerns Assessment Noted Time PHQ-9 Depression Total Score: 21 023 10:16 AM CDT documented as of this encounter Care Teams Police Manager Relationship Specialty Start Date End Date [facility], [address] [address] PCP - General 11/28/23 Madelaine Mitchell DO biofuels technology manager 07/26/16 Francesco Merritt MD [address] [place] [address] Family Medicine - Sports Medicine 12/14/18 Gabe Carl MD [address] [facility] [place] [address] Assigned PCP 05/09/21 Madelaine Mitchell DO [address] [place], [place] [address] Assigned OBGYN Provider 03/09/24 documented as of this encounter
--- OUTSIDE RECORDS SUMMARY | 2024-04-23 07:51 | XMS_ITS | Encounter Summary ---
Author Organization [place] Address [address] [place] [address] Care Team Providers Care Compliance Administrator Name Role Phone Madelaine Mitchell DO Unavailable [phone] Rosamaria Jones MD Primary Care Provider Francesco Merritt MD Unavailable Gabe Carl MD Unavailable [phone] Danielle Alcantar MD Unavailable [facility] Primary Care Provider Madelaine Mitchell DO Unavailable [phone] Encounter Details Date Type Department Care Team (Late st Contact Info) Description 07/11/2021 MyC Medical Advice [facility] Women's [facility] [address] [place] [address] Madelaine Mitchell DO [address] [place] [address] Social History Tobacco Use Types Packs/Day Years [...] Depression Total Score: 10 022 9:03 AM BABBITTER documented as of this encounter Care Teams Compliance Administrator Relationship Specialty Start Date End Date Rosamaria Jones MD [address] [facility] 200 [place] [address] PCP - General Internal Medicine 10/06/18 11/27/[address] [address] PCP - General 11/28/23 Madelaine Mitchell DO interlocking and signal mechanic 07/26/16 Francesco Merritt MD [address] [place] [address] Family Medicine - Sports Medicine 12/14/18 Gabe Carl MD [address] [place] [address] [place] [address] Assigned PCP 05/09/21 Danielle Alcantar MD [address] [place] [address] Assigned Musculoskeletal Provider 07/18/21 02/03/23 Madelaine Mitchell DO [address] [address] Assigned OBGYN Provider 03/09/24 documented as of this encounter
--- OUTSIDE RECORDS SUMMARY | 2024-04-23 07:52 | XMS_ITS | Encounter Summary ---
Author Organization [place] Address [address] [place] [address] Care Team Providers Care Health And Wellness Instructor Name Role Phone Madelaine Mitchell DO Unavailable Rosamaria Jones MD Primary Care Provider [phone] Francesco Merritt MD Unavailable [phone] Gabe Carl MD Unavailable [phone] Danielle Alcantar MD Unavailable [phone] [facility] Primary Care Provider Madelaine Mitchell DO Unavailable [phone] Reason for Referral * Infertility Artificial Insemination (Routine: Next available opening) - Closed Specialty Diagnoses / Procedures Referred By Darryl t Referred To Contact Diagnoses [place] [address] [place] [address] Phone: tel: fax: [facility] [address] [place] [phone] Phone: tel: Referral ID Status Reason Start Date Expiration Date Visits Re quested Visits Authorized [id number] Closed 06/07/2021 06/07/2022 1 1 Question Answer [...] or coverage questions. [facility]: [phone] [facility] [phone] [facility]. ([facility]) [phone] Other (external) - Use Comments Please call to schedule your appointment SETTING MACHINE TENDER Encounter Details Date Type Department Care Team (Late st Contact Info) Description 06/03/2021 [facility] Medical Advice [facility] [address] [place] [address] Madelaine Mitchell DO [address] [place] [address] Anovulation (Primary Dx) Social History [...] Depression Total Score: 10 022 9:03 AM TYPESETTING MACHINE TENDER documented as of this encounter Care Teams Health And Wellness Instructor Relationship Specialty Start Date End Date Rosamaria Jones MD [address] [place] [address] PCP - General Internal Medicine 10/06/18 11/27/[address] [address] PCP - General 11/28/23 Madelaine Mitchell DO congregational care pastor 07/26/16 Francesco Merritt MD [address] [place] [address] Family Medicine - Sports Medicine 12/14/18 Gabe Carl MD [address] [place] [address] [place] [address] Assigned PCP 05/09/21 Daneille Alcantar MD [address] [place] [address] Assigned Musculoskeletal Provider 07/18/21 02/03/23 Madelaine Mitchell DO [address] [place] [address] Assigned OBGYN Provider 03/09/24 documented as of this encounter
--- OUTSIDE RECORDS SUMMARY | 2024-04-23 07:52 | XMS_ITS | Encounter Summary ---
Author Organization [place] Address [address] [place] [address] Care Team Providers Care Livestock Ranch Hand Name Role Phone Madelaine Mitchell DO Unavailable Rosamaria Jones MD Primary Care Provider Francesco Merritt MD Unavailable [phone] Elaina Jiang APRN [facility] Unavailable [phone] Rosamaria Jones MD Unavailable Gabe Carl MD Unavailable [phone] Danielle Alcantar MD Unavailable [facility] Primary Care Provider Madelaine Mitchell DO Unavailable Encounter Details Date Type Department Care Team (Late st Contact Info) Description 03/14/2021 MyC Medical Advice [facility] Women's [facility] [address] [place] [address] Madelaine Mitchell DO [address] [place], [place] [address] Anovulation (Primary Dx) Social History Tobacco Use [...] CST Please address the my chart message. lCif Catalan RN ENT ACCOUNTS CLERK documented in this encounter Plan of Treatment Not on file documented as of this encounter Visit Diagnoses Diagnosis Anovulation- Primary Female infertility associated with anovulation documented in this encounter Additional Health Concerns Infection Onset Date Last Indicated Resolved Time Rule Out COVID-19 03/31/2021 03/31/2021 03/31/2021 7:10 AM PATIENT ACCOUNTS CLERK Rule Out COVID-19 09/15/2022 09/15/2022 09/15/2022 9:15 AM CDT Assessment Noted Time PHQ-9 Depression Total Score: 10 019 7:03 AM CDT documented as of this encounter Care Teams Livestock Ranch Hand Relationship Specialty Start Date End Date Rosamaria Jones MD [address] [facility] 200 [place] [address] PCP - General Internal Medicine 10/06/18 11/27/[address] [address] PCP - General 11/28/23 Madelaine Mitchell DO senior project manager engineering 07/26/16 Francesco Merritt MD [address] [place], [place] [id number] [place] [address] Family Medicine - Sports Medicine 12/14/18 Elaina Jiang APRN CNP [address] [place], [place] [address] Assigned PCP 10/27/19 04/03/21 Rosamaria Jones MD [address] [place], [place] [address] Assigned PCP 04/04/21 05/08/21 Gabe Carl MD [address] [facility] [address] [place] [id number] Assigned PCP 05/09/21 Danielle Alcantar MD [address] [place] [id number] Assigned Musculoskeletal Provider 07/18/21 02/03/23 Madelaine Mitchell DO [address] [facility] [address] [place], [place] [address] Assigned OBGYN Provider 03/09/24 documented as of this encounter
--- OUTSIDE RECORDS SUMMARY | 2024-04-23 07:52 | XMS_ITS | Encounter Summary ---
Author Organization [place] Address [address] [place] [address] Care Team Providers Care Back Closer Name Role Phone Madelaine Mitchell DO Unavailable [phone] Rosamaria Jones MD Primary Care Provider [phone] Francesco Merritt MD Unavailable [phone] Elaina Jiang APRN [facility] Unavailable [phone] Rosamaria Jones MD Unavailable Gabe Calr MD Unavailable [phone] Danielle Alcantar MD Unavailable [facility] Primary Care Provider Madelaine Mitchell DO Unavailable [phone] Encounter Details Date Type Department Care Team [...] COVID-19? No / Unsure 03/31/2021 6:25 AM PAPER STRIPPER documented as of this encounter Plan of Treatment Not on file documented as of this encounter Visit Diagnoses Not on filedocumented in this encounter Additional Health Concerns Infection Onset Date Last Indicated Resolved Time Rule Out COVID-19 03/31/2021 03/31/2021 03/31/2021 7:10 AM PAPER STRIPPER Rule Out COVID-19 09/15/2022 09/15/2022 09/15/2022 9:15 AM CDT Assessment Noted Time PHQ-9 Depression Total Score: 10 019 7:03 AM CDT documented as of this encounter Care Teams Back Closer Relationship Specialty Start Date End Date Rosamaria Jones MD [address] [place] [address] 611097 PCP - General Internal Medicine 10/06/18 11/27/[address] [address] PCP - General 11/28/23 Madelaine Mitchell DO redevelopment specialist 07/26/16 Francesco Merritt MD [address] [place] [address] 191084 Family Medicine - Sports Medicine 12/14/18 Elaina Jiang APRN CNP [address] [place], [place] [id number] Assigned PCP 10/27/19 04/03/21 Rosamaria Jones MD [address] [place] [address] 118337 Assigned PCP 04/04/21 05/08/21 Gabe Carl MD [address] [facility] [address] [place] [id number] Assigned PCP 05/09/21 Danielle Alcantar MD 9[address] [place], [place] 994185 Assigned Musculoskeletal Provider 07/18/21 02/03/23 Madelaine Mitchell DO [address] 040697 Assigned OBGYN Provider 03/09/24 documented as of this encounter
[2024-04-23 07:53] VITALS: BP 117/93; PULSE 89; RESP 16; TEMP 36.2; O2SAT 95; BMI 33.3
--- OUTSIDE RECORDS SUMMARY | 2024-04-23 07:53 | XMS_ITS | Encounter Summary ---
Author Organization [place] Address [address] [place] [address]52 Care Team Providers Care Member Of Parliament Name Role Phone Madelaine Mitchell DO Unavailable [phone] Rosamaria Jones MD Primary Care Provider Francesco Merritt MD Unavailable [phone] Loyda Farmer MD Unavailable [phone] CreElaina morales APRN [facility] Unavailable [phone] Rosamaria Jones MD Unavailable Gabe Carl MD Unavailable [phone] Danielle Alcantar MD Unavailable [facility] Primary Care Provider Madelaine Mitchell DO Unavailable Reason for Visit * Reason Comments Medication Refill Encounter Details Date Type Department Care Team (Late st Contact Info) Description 10/13/[address] [address] Madelaine Micthell DO [address] [facility] 100 [place] [address] Medication Refill Social History Tobacco Use Types [...] Out COVID-19 03/31/2021 03/31/2021 03/31/2021 7:10 AM COMPREHENSIVE OPHTHALMOLOGIST Rule Out COVID-19 09/15/2022 09/15/2022 09/15/2022 9:15 AM CDT Assessment Noted Time PHQ-9 Depression Total Score: 10 019 7:03 AM CDT documented as of this encounter Care Teams Member Of Parliament Relationship Specialty Start Date End Date Rosamaria Jones MD [address] [facility] 200 [place] [address] PCP - General Internal Medicine 10/06/18 11/27/[address] [address] PCP - General 11/28/23 Madelaine Mitchell DO machine repairman 07/26/16 Francesco Merritt MD [facility] [id number] [place], [place] 224134 Family Medicine - Sports Medicine 12/14/18 Loyda Farmer MD [address] [place], [place] [id number] Assigned PCP 09/29/19 10/26/19 Elaina Jiang APRN CNP [address] [place], [place] 545947 Assigned PCP 10/27/19 04/03/21 Rosamaria Jones MD [address] [facility] 200 [place], [place] [id number] Assigned PCP 04/04/21 05/08/21 Gabe Carl MD [address] [place] [address] Assigned PCP 05/09/21 Danielle Alcantar MD 9 [place], [place] [id number] Assigned Musculoskeletal Provider 07/18/21 02/03/23 Madelaine Mitchell DO [address] [facility] 100 [place], [place] 440977 Assigned OBGYN Provider 03/09/24 documented as of this encounter
--- OUTSIDE RECORDS SUMMARY | 2024-04-23 07:53 | XMS_ITS | Encounter Summary ---
Author Organization [place] Address [address] [place] [address] Care Team Providers Care Brine Process Operator Name Role Phone Madelaine Mitchell DO Unavailable Rosamaria Jones MD Primary Care Provider Francesco Merritt MD Unavailable Loyda Farmer MD Unavailable CreElaina morales APRN [facility] Unavailable [phone] Rosamaria Jnoes MD Unavailable Gabe Carl MD Unavailable [phone] Danielle Alcantar MD Unavailable [facility] Primary Care Provider Madelaine Mitchell DO Unavailable [phone] Reason for Visit * Reason Comments Medication Refill Encounter Details Date Type Department Care Team (Late st Contact Info) Description 10/05/[address] [address] Madelaine Mitchell DO [address] [facility] 100 [place] [address] Medication Refill Social History Tobacco Use Types [...] RN - 10/22/2019 10:31 AM CDT Sent [facility] message to schedule appt. Queta Morales R.N. [...] Out COVID-19 03/31/2021 03/31/2021 03/31/2021 7:10 AM ESTERS AND EMULSIFIERS SUPERVISOR Rule Out COVID-19 09/15/2022 09/15/2022 09/15/2022 9:15 AM CDT Assessment Noted Time PHQ-9 Depression Total Score: 10 019 7:03 AM CDT documented as of this encounter Care Teams Brine Process Operator Relationship Specialty Start Date End Date Rosamaria Jones MD [address] [facility] 200 [place] [address] PCP - General Internal Medicine 10/06/18 11/27/23 [facility], [address] [address] PCP - General 11/28/23 Madelaine Mitchell DO full fashioned garment knitter 07/26/16 Francesco Merritt MD [address] [place] [address] 304024 Family Medicine - Sports Medicine 12/14/18 Loyda Farmer MD [address] [place], [place] [id number] Assigned PCP 09/29/19 10/26/19 Elaina Jiang APRN YARN WASHER [address] [place], [place] 48[address]337 Assigned PCP 10/27/19 04/03/21 Rosamaria Jones MD [address] [facility] 200 [place], [place] [id number] Assigned PCP 04/04/21 05/08/21 Gabe Carl MD [address] [facility] [place] [address] Assigned PCP 05/09/21 Danielle Alcantar MD 909 [place] [address] Assigned Musculoskeletal Provider 07/18/21 02/03/23 Madelaine Mitchell DO [address] [facility] 100 [place] [address] Assigned OBGYN Provider 03/09/24 documented as of this encounter
--- OUTSIDE RECORDS SUMMARY | 2024-04-23 07:53 | XMS_ITS | Encounter Summary ---
Author Organization [place] Address [address] [place] [address] Care Team Providers Care Step Down Specialist Name Role Phone Madelaine Mitchell DO Unavailable Rosamaria Jones MD Primary Care Provider [phone] Francesco Merritt MD Unavailable Rosamaria Jones MD Unavailable SerumLoyda MD Unavailable CreElaina morales APRN [facility] Unavailable [phone] Rosamaria Jones MD Unavailable MeseretGabe jordan MD Unavailable [phone] Danielle Alcantar MD Unavailable [facility] Primary Care Provider Madelaine Mitchell DO Unavailable Encounter Details Date Type Department Care Team (Late st Contact Info) Description 06/28/2019 [facility] [address] [place] [address], [address] [place] [address] Porsha Vargas, RN Social History Tobacco Use Types Packs/Day [...] COLP CERVIX/UPPER VAGINA Routine 04/25/2018 12:00 AM WINDOWS AND DOORS INSTALLER documented in this encounter Results * COLP CERVIX/UPPER VAGINA (04/25/2018 12:00 AM WINDOWS AND DOORS INSTALLER) us Patient Reported PROCEDURES Final Result documented in this encounter Visit Diagnoses Not on filedocumented in this encounter Additional Health Concerns Infection Onset Date Last Indicated Resolved Time Rule Out COVID-19 03/31/2021 03/31/2021 03/31/2021 7:10 AM WINDOWS AND DOORS INSTALLER Rule Out COVID-19 09/15/2022 09/15/2022 09/15/2022 9:15 AM CDT Assessment Noted Time PHQ-9 Depression Total Score: 10 019 7:03 AM CDT documented as of this encounter Care Teams Step Down Specialist Relationship Specialty Start Date End Date Rosamaria Jones MD [address] [employer] Shuju[employer]ISA [address] [place] [address] 628847 PCP - General Internal Medicine 10/06/18 11/27/[address] [address] PCP - General 11/28/23 Madelaine Mitchell DO budget and policy analyst 07/26/16 Francesco Merritt MD [address] [place] [address] Family Medicine - Sports Medicine 12/14/18 Rosamaria Jones MD [address] [place] [address] [place] [address] Assigned PCP 03/31/19 09/28/19 Loyda Farmer MD [address] [place] [address] Assigned PCP 09/29/19 10/26/19 Elaina Jiang APRN [facility] [address] [place] [address] Assigned PCP 10/27/19 04/03/21 Rosamaria Jones MD [address] [facility] 200 [place] [address] Assigned PCP 04/04/21 05/08/21 Gabe Carl MD [address] [facility] [place] [address] Assigned PCP 05/09/21 Danielle Alcantar MD 9 [place] [address] Assigned Musculoskeletal Provider 07/18/21 02/03/23 Madelaine Mitchell DO [address] [facility] 100 [place] [address] Assigned OBGYN Provider 03/09/24 documented as of this encounter
--- OUTSIDE RECORDS SUMMARY | 2024-04-23 07:53 | XMS_ITS | Encounter Summary ---
Author Organization [place] Address [address] [place] [address] Care Team Providers Care Senior Pricing Analyst Name Role Phone Madelaine Mitchell DO Unavailable [phone] Rosamaria Jones MD Primary Care Provider Francesco Merritt MD Unavailable [phone] Loyda Farmer MD Unavailable CreElaina morales APRN [facility] Unavailable [phone] Rosamaria Jones MD Unavailable Gabe Carl MD Unavailable [phone] Danielle Alcantar MD Unavailable [phone] [facility] Primary Care Provider Madelaine Mitchell DO Unavailable Encounter Details Date Type Department Care Team (Late st Contact Info) Description 10/22/2019 [facility] Medical Advice [facility] [address] [place] [address] Queta Lisa, RN Social History [...] Out COVID-19 03/31/2021 03/31/2021 03/31/2021 7:10 AM DAIRY PROCESSING EQUIPMENT OPERATOR Rule Out COVID-19 09/15/2022 09/15/2022 09/15/2022 9:15 AM CDT Assessment Noted Time PHQ-9 Depression Total Score: 10 019 7:03 AM CDT documented as of this encounter Care Teams Senior Pricing Analyst Relationship Specialty Start Date End Date Rosamaria Jones MD [address] [place], [place] [address] PCP - General Internal Medicine 10/06/18 11/27/[address] [address] PCP - General 11/28/23 Madelaine Mitchell DO telephone sex worker 07/26/16 Francesco Merritt MD [address] [place] [address] Family Medicine - Sports Medicine 12/14/18 Loyda Farmer MD [address] [place], [place] 49[address] Assigned PCP 09/29/19 10/26/19 Elaina Jiang APRN CNP [address] [place] [address] Assigned PCP 10/27/19 04/03/21 Rosamaria Jones MD [address] 200 [place], [place] 507847 Assigned PCP 04/04/21 05/08/21 Gabe Carl MD [address] [facility] [place] [address] Assigned PCP 05/09/21 Danielle Alcantar MD 909 [place], [place] 6726[address] Assigned Musculoskeletal Provider 07/18/21 02/03/23 Madelaine Mitchell DO [address] [facility] 100 [place] [address] Assigned OBGYN Provider 03/09/24 documented as of this encounter
--- OUTSIDE RECORDS SUMMARY | 2024-04-23 07:53 | XMS_ITS | Encounter Summary ---
Author Organization [place] Address [address] [place] [address] Care Team Providers Care Day Care Home Mother Name Role Phone Madelaine Mitchell DO Unavailable Rosamaria Jones MD Primary Care Provider Francesco Merritt MD Unavailable Elaina Jiang APRN [facility] Unavailable [phone] Rosamaria Jones MD Unavailable Gabe Carl MD Unavailable [phone] Danilele Alcantar MD Unavailable [facility] Primary Care Provider Madelaine Mitchell DO Unavailable Encounter Details Date Type Department Care Team (Late st Contact Info) Description 07/10/2020 [facility] Medical Advice [facility] [place] [address] [place] [address] Madelaine Mitchell DO [address] [place] [address] [place], [place] [id number] Social History Tobacco Use Types Packs/Day Years [...] Out COVID-19 03/31/2021 03/31/2021 03/31/2021 7:10 AM PLATER HOT DIP Rule Out COVID-19 09/15/2022 09/15/2022 09/15/2022 9:15 AM CDT Assessment Noted Time PHQ-9 Depression Total Score: 10 019 7:03 AM CDT documented as of this encounter Care Teams Day Care Home Mother Relationship Specialty Start Date End Date Rosamaria Jones MD [address] [place] [address] 125787 PCP - General Internal Medicine 10/06/18 11/27/[address] [address] PCP - General 11/28/23 Madelaine Mitchell DO floor mechanic 07/26/16 Francesco Merritt MD [address] [place], [place] [address] [place] [address] Family Medicine - Sports Medicine 12/14/18 Elaina Jiang APRN CNP [address] [place] [address] Assigned PCP 10/27/19 04/03/21 Rosamaria Jones MD [address] [place] [address] Assigned PCP 04/04/21 05/08/21 Gabe Carl MD [address] [facility] [place] [address] Assigned PCP 05/09/21 Danielle Alcantar MD 909 [place] [address] Assigned Musculoskeletal Provider 07/18/21 02/03/23 Madelaine Mitchell DO [address] [place] [address] Assigned OBGYN Provider 03/09/24 documented as of this encounter
--- OUTSIDE RECORDS SUMMARY | 2024-04-23 07:54 | XMS_ITS | Encounter Summary ---
Author Organization [facility] Address [address] [place] [address] [address] [place] [address] Care Team Providers Care Supervisor Plasma Name Role Phone Provider, No Attributed RESOURCE Unavailable Unavailable Encounter Details Date Type Department Care Team (Late st Contact Info) Description 04/09/2024 Orders Only [facility] [address] [place] [address] Brigida Kohli PA [address] [place] [address] Sore throat (Primary Dx) Social History Tobacco Use Types Packs/Day Years Used Date Smoking Tobacco: Former Cigarettes Smokeless Tobacco: Never Alcohol Use Standard Drinks/Week Comments Yes 0 (1 standard drink = 0.6 oz pur e alcohol) Mixed drinks- 1-2 week PHQ-2 Answer Date Recorded PHQ-2 Total 0 04/09/2024 Sexually Active Control Partners Comments Yes None Male Comments No Sex and Gender Information Value Date Recorded Sex Assigned at Not on file Legal Sex Female 4:44 AM CDT Gender Identity Not on file Sexual Orientation Not on file Occupation Industry Job Start Date Job End Date Not on file Not on file Not on file Not on file Not on file Not on file Not on file Not on file documented as of this encounter Plan of Treatment Scheduled Orders Name Type Priority Associated Diagnoses Orde r Schedule GROUP A STREPTOCOCCUS BY CECELIA Lab Routine Sore throat Expected: 04/09/2024 (Approximate), Expires: 05/10/2025 documented as of this encounter Visit Diagnoses Diagnosis Sore throat- Primary Acute pharyngitis documented in this encounter Care Teams Supervisor Plasma Relationship Specialty Start Date End Date Provider, No Attributed, RESOURCE [address] PCP - Attributed Provider 09/14/16 documented as of this encounter
--- OUTSIDE RECORDS SUMMARY | 2024-04-23 07:54 | XMS_ITS | Encounter Summary ---
Author Organization [place] Address [address] [place] [address] Care Team Providers Care Cable Worker Helper Name Role Phone Madelaine Mitchell DO Unavailable [phone] Rosamaria Jones MD Primary Care Provider [phone] Francesco Merritt MD Unavailable Rosamaria Jones MD Unavailable SerumLoyda MD Unavailable [phone] CreElaina morales APRN [facility] Unavailable [phone] Rosamaria Jones MD Unavailable MeseretGabe jordan MD Unavailable [phone] Danielle Alcantar MD Unavailable [facility] [place] Primary Care Provider Madelaine Mitchell DO Unavailable Encounter Details Date Type Department Care Team (Late st Contact Info) Description 06/28/2019 [facility] [address] [place] [address], [address] [place] [address] Porsha Vargas, [...] COLP CERVIX/UPPER VAGINA Routine 04/25/2019 12:00 AM DISPATCHER RADIOACTIVE WASTE DISPOSAL documented in this encounter Results * COLP CERVIX/UPPER VAGINA (04/25/2019 12:00 AM DISPATCHER RADIOACTIVE WASTE DISPOSAL) us Patient Reported PROCEDURES Final Result documented in this encounter Visit Diagnoses Not on filedocumented in this encounter Additional Health Concerns Infection Onset Date Last Indicated Resolved Time Rule Out COVID-19 03/31/2021 03/31/2021 03/31/2021 7:10 AM DISPATCHER RADIOACTIVE WASTE DISPOSAL Rule Out COVID-19 09/15/2022 09/15/2022 09/15/2022 9:15 AM CDT Assessment Noted Time PHQ-9 Depression Total Score: 10 019 7:03 AM CDT documented as of this encounter Care Teams Cable Worker Helper Relationship Specialty Start Date End Date Rosamaria Jones MD [address] PogoappLISA [address] [place] [address]2437 PCP - General Internal Medicine 10/06/18 11/27/[address] [address] PCP - General 11/28/23 Madelaine Mitchell DO trimmer operator three knife 07/26/16 Francesco Merritt MD [address] [place] [address] Family Medicine - Sports Medicine 12/14/18 Rosamaria Jones MD [address] [place] [address] [place] [address] Assigned PCP 03/31/19 09/28/19 Loyda Farmer MD [address]75 [place] [address] Assigned PCP 09/29/19 10/26/[address]N [address] [facility]EE [address] [place] [address] Assigned PCP 10/27/19 04/03/21 Rosamaria Jones MD [address] [facility] 200 [place] [address] Assigned PCP 04/04/21 05/08/21 Gabe Carl MD [address] [facility] [place] [address] Assigned PCP 05/09/21 Danielle Alcantar MD 9 [place] [address] Assigned Musculoskeletal Provider 07/18/21 02/03/23 Madelaine Mitchell DO [address] [facility] 100 [place] [address] Assigned OBGYN Provider 03/09/24 documented as of this encounter
--- OUTSIDE RECORDS SUMMARY | 2024-04-23 07:54 | XMS_ITS | Encounter Summary ---
Author Organization [facility] Address [address] [place] [address] [address] [place] [address] Care Team Providers Care School Cafeteria Cook Head Name Role Phone Provider, No Attributed RESOURCE Unavailable Unavailable Encounter Details Date Type Department Care Team (Latest Contact Info) Description 04/09/2024 9:05 AM LITIGATION ASSOCIATE - 04/09/2024 11:59 PM LITIGATION ASSOCIATE Hospital Encounter [facility] [address] [place] [address] Brigida Kohli, PA [address] [place] [address] Acute cough Discharge Disposition: Home, Self Care Social History Tobacco Use Types [...] on file documented as of this encounter Medications at Time of Discharge ibuprofen (MOTRIN) 600 mg tablet Take 1 tablet by mouth every 6 hours as needed for moderate pain. 40 tablet 0 07/19/2014 metFORMIN (GLUCOPHAGE) 500 MG tablet Take by mouth 2 times a day. Takes for Polycystic Ovarian Syndrome. Vit-Fe Fumarate-FA ( VITAMIN, WITH FOLIC ACID 0.8 MG,) 27-0.8 MG TABS Take 1 tablet by mouth albuterol HFA (PROVENTIL,PROAIR ,VENTOLIN) 108 (90 Base) MCG/ACT inhalerIndication s:Acute non-recurrent sinusitis, unspecified location Inhale 2 puffs orally Every 4 hours as needed for shortness of breath, wheezing or cough Shake well before using. 8 g 04/09/2024 fluconazole (DIFLUCAN) 200 mg tabletIndications :Acute non-recurrent sinusitis, unspecified location Take 1 tablet (200 mg) by mouth 1 time per day For yeast infection. May repeat if needed after 48 hours. 2 tablet 04/09/2024 HYDROcodone-aceta minophen (NORCO) 5-325 mg tablet Take 1-2 tablets by mouth every 6 hours as needed for severe pain. 30 tablet 0 07/19/2014 cyclobenzaprine (FLEXERIL) 10 mg tablet Take 1 tablet by mouth 3 times a day as needed for muscle spasm. 15 tablet 0 07/19/2014 nabumetone (RELAFEN) 500 mg tablet Take 500 mg by mouth 2 times a day. 04/04/2014 amoxicillin-clavu lanate potassium (AUGMENTIN) 875-125 mg tabletIndications :Acute non-recurrent sinusitis, unspecified location Take 1 tablet by mouth 2 times a day for 7 days 14 tablet 04/09/2024 4 predniSONE 10 mg tabletIndications :Acute non-recurrent sinusitis, unspecified location Take 4 tablets (40 mg) by mouth 1 time per day for 3 days, THEN 3 tablets (30 mg) 1 time per day for 3 days, THEN 2 tablets (20 mg) 1 time per day for 3 days, THEN 1 tablet (10 mg) 1 time per day for 3 days. 30 tablet 04/09/2024 5 documented as of this encounter Plan of Treatment Not on file documented as of this encounter Procedures Procedure Name Priority Date/Time Associated Diagnosis Comments XRAY CHEST PA AND LATERAL Routine 04/09/2024 9:11 AM LITIGATION ASSOCIATE Acute cough documented in this encounter Results * XRAY CHEST PA AND LATERAL (04/09/2024 9:11 AM LITIGATION ASSOCIATE) Anatomical Region Laterality Modality Chest, Lung Computed Radiogr aphy 04/09/2024 9:17 AM LITIGATION ASSOCIATE Narrative 04/09/2024 9:19 AM LITIGATION ASSOCIATE EXAM: XRAY CHEST PA AND LATERAL INDICATION: ICD-10 R05.1 Acute cough COMPARISON(S): Chest x-ray September 13, 2009 FINDINGS: Cardiomediastinal silhouette and pulmonary vasculature appear within normal limits. Suture material noted overlies the right perihilar region. No definite focal consolidation, pleural effusion, or pneumothorax. Question elements of minor subsegmental atelectasis. No acute upper abdominal or acute osseous findings. Finalized by: Francesco Nuno MD on 04/09/2024 9:19 AM LITIGATION ASSOCIATE Procedure Note Francesco Nuno MD - 04/09/2024 EXAM: XRAY CHEST PA AND LATERAL INDICATION: ICD-10 R05.1 Acute cough COMPARISON(S): Chest x-ray September 13, 2009 FINDINGS: Cardiomediastinal silhouette and pulmonary vasculature appear withinnormal limits. Suture material noted overlies the right perihilarregion. No definite focal consolidation, pleural effusion, or pneumothorax.Question elements of minor subsegmental atelectasis. No acute upper abdominal or acute osseous findings. Finalized by: Francesco Nuno MD on 04/09/2024 9:19 AM LITIGATION ASSOCIATE [facility] Final Result documented in this encounter Visit Diagnoses Diagnosis Acute cough documented in this encounter Care Teams School Cafeteria Cook Head Relationship Specialty Start Date End Date Provider, No Attributed, RESOURCE [address] PCP - Attributed Provider 09/14/16 documented as of this encounter
--- OUTSIDE RECORDS SUMMARY | 2024-04-23 07:54 | XMS_ITS | Encounter Summary ---
Author Organization [facility] Address [address] [place] [address] [address] [place] [address] Care Team Providers Care Fisheries Officer Name Role Phone Provider, No Attributed RESOURCE Unavailable Unavailable Encounter Details Date Type Department Care Team (Late st Contact Info) Description 04/09/2024 Orders Only [facility] [address] [place] [address] Brigida Kohli PA [address] [place] [address] Sore throat (Primary Dx) Social History Tobacco [...] Type Priority Associated Diagnoses Orde r Schedule SARS-COV-2, INFLUENZA A+B, AND RSV NUCLEIC ACID TESTING PANEL Lab Routine Sore throat Expected: 04/09/2024 (Approximate), Expires: 05/10/2025 documented as of this encounter Visit Diagnoses Diagnosis Sore throat- Primary Acute pharyngitis documented in this encounter Care Teams Fisheries Officer Relationship Specialty Start Date End Date Provider, No Attributed, RESOURCE [address] PCP - Attributed Provider 09/14/16 documented as of this encounter
--- OUTSIDE RECORDS SUMMARY | 2024-04-23 07:54 | XMS_ITS | Encounter Summary ---
Author Organization [facility] Address [address] [place] [address] Care Team Providers Care Nurse Esthetician Name Role Phone Rosamaria Jones MD Primary Care Provider [phone] Madelaine Mitchell DO Unavailable [phone] Elaina Jiang APRN PARTNER MARKETING MANAGER Unavailable [phone] No Ref-Primary, Physician Primary Care Provider Rosamaria Jones MD Primary Care Provider [phone] Francesco Merritt MD Unavailable [phone] Rosamaria Jones MD Unavailable Loyda Farmer MD Unavailable Elaina Jiang APRN PARTNER MARKETING MANAGER Unavailable [phone] Rosamaria Jones MD Unavailable Gabe Carl MD Unavailable [phone] Danielle Alcantar MD Unavailable [phone] [facility] Primary Care Provider Madelaine Mitchell DO Unavailable [phone] Encounter Details Date Type Department Care Team (Late st Contact Info) Description 07/15/2018 Tj Negro [facility] [id number] [place] [id number] Madelaine Mitchell DO [address] [place] [address] PCOS (polycystic ovarian syndrome) (Primary Dx) Social [...] Out COVID-19 03/31/2021 03/31/2021 03/31/2021 7:10 AM BOOK CANVASSER Rule Out COVID-19 09/15/2022 09/15/2022 09/15/2022 9:15 AM CDT Assessment Noted Time PHQ-9 Depression Total Score: 0 02/01/20 17 1:00 PM CDT documented as of this encounter Care Teams Nurse Esthetician Relationship Specialty Start Date End Date Rosamaria Jones MD [address] [place] [address] PCP - General Internal Medicine 09/12/14 07/24/18 No Ref-Primary, Physician PCP - General 07/25/18 10/05/18 Rosamaria Jones MD [address] [place] [address] PCP - General Internal Medicine 10/06/18 11/27/[address] [address] PCP - General 11/28/23 Madelaine Mitchell DO [address] [place] [address] religion instructor 07/26/16 Elaina Jiang APRN PARTNER MARKETING MANAGER [address] [place] [address] Assigned PCP 04/08/18 03/30/19 Francesco Merritt MD [address] [place] [address] Family Medicine - Sports Medicine 12/14/18 Rosamaria Jones MD [address] [address] Assigned PCP 03/31/19 09/28/19 Loyda Farmer MD [address] [place], [place] [id number] Assigned PCP 09/29/19 10/26/19 Elaina Jiang APRN PARTNER MARKETING MANAGER [address] [place] [address] Assigned PCP 10/27/19 04/03/21 Rosamaria Jones MD [address] [address] Assigned PCP 04/04/21 05/08/21 Gabe Carl MD [address] [facility] [place] [address] Assigned PCP 05/09/21 Danielle Alcantar MD [address] [place], [place] [address] Assigned Musculoskeletal Provider 07/18/21 02/03/23 Madelaine Mitchell DO [address] [address] Assigned OBGYN Provider 03/09/24 documented as of this encounter
--- OUTSIDE RECORDS SUMMARY | 2024-04-23 07:54 | XMS_ITS | Encounter Summary ---
Author Organization [facility] Address [facility] [place] [address] Care Team Providers Care Car Servicer Name Role Phone Provider, No Attributed RESOURCE Unavailable Unavailable Reason for Visit * Reason Comments Cough Congestion Sinus Problem Neda Moss is a 33yr old female has had symptoms for two weeks. States she has pain in sinuses, fevers on and off. Very congested and coughing. States it is in her chest. Admits to painful breathing and sometimes difficulty breathing. Also states she hears crackles when she exhales. Encounter Details Date Type Department Care Team (Late st Contact Info) Description 04/09/2024 9:00 AM DEVELOPER ADVOCATE Office Visit [facility] [address] [place] [address] Brigida Kohli PA [address] [place] [address] Acute cough (Primary Dx); Acute non-recurrent sinusitis, unspecified location Discharge Disposition: Home, Self Care Social History [...] Sign Reading Time Taken Comments Blood Pressure 114/82 04/09/2024 9:03 AM DEVELOPER ADVOCATE Pulse 80 04/09/2024 9:03 AM DEVELOPER ADVOCATE Temperature 35.9 C (96.7 F) 04/09/2024 9:03 AM DEVELOPER ADVOCATE Respiratory Rate 18 04/09/2024 9:03 AM DEVELOPER ADVOCATE Oxygen Saturation - - Inhaled Oxygen Concentration - - Weight 91.3 kg (201 lb 4.8 oz) 04/09/2024 9:03 A M DEVELOPER ADVOCATE Height 166.4 cm (5' 5.5) 04/09/2024 9:03 AM DEVELOPER ADVOCATE Body Mass Index 32.99 04/09/2024 9:03 AM DEVELOPER ADVOCATE documented in this encounter Progress Notes * Brigida Kohli PA - 04/09/2024 9:25 AM CST Assessment / Plan Acute cough - XRAY CHEST PA AND LATERAL; Future Acute non-recurrent sinusitis, unspecified location - amoxicillin-clavulanate potassium (AUGMENTIN) 875-125 mg tablet; Take 1 tablet by mouth 2 times aday for 7 days Dispense: 14 tablet; Refill: 0 - albuterol HFA (PROVENTIL,PROAIR,VENTOLIN) 108 (90 Base) MCG/ACT inhaler; Inhale 2 puffs orally Every 4 hours as needed for shortness of breath, wheezing or cough Shake well before using. Dispense: 8 g; Refill: 0 - fluconazole (DIFLUCAN) 200 mg tablet; Take 1 tablet (200 mg) by mouth 1 time per day For yeast infection. May repeat if needed after 48 hours. Dispense: 2 tablet; Refill: 0 - predniSONE 10 mg tablet; Take 4 tablets (40 mg) by mouth 1 time per day for 3 days, THEN 3 tablets (30 mg) 1 time per day for 3 days, THEN 2 tablets (20 mg) 1 time per day for 3 days, THEN 1 tablet(10 mg) 1 time per day for 3 days. Dispense: 30 tablet; Refill: 0 Plan: Chest x-ray with No definite focal consolidation, pleural effusion, or pneumothorax. Question elements of minor subsegmental atelectasis. As symptoms present for 2 weeks and previous testing all negative, will treat her with augmentin and prednisone taper. She has albuterol inhaler at home but not with her so will prescribe one as well, hx of exercise induced asthma. She also requests diflucan as she gets yeast infections with antibiotics. Patient is agreeable to plan of care and verbalizes understanding. Should follow up with PCP if symptoms worsen or do not improve. No follow-ups on file. No orders of the defined types were placed in this encounter. HPI / History / ROS Neda Moss is a 33yr female who presents for 2 weeks of cough, congestion, and on/off fevers. Feels very congested in her chest and now is having pain with breathing at time and feeling SOBat times. Feels like she is wheezy/crackles when she exhales. Has been seen twice by PCP, tested negative for influenza, covid, RSV, and strep. Highest fever has been is 102, it does come down with medications. Medications Outpatient Medications Prior to Visit Medication Sig Dispense Refill ibuprofen (MOTRIN) 600 mg tablet Take 1 tablet by mouth every 6 hours as needed for moderate pain. 40 tablet 0 metFORMIN (GLUCOPHAGE) 500 MG tablet Take by mouth 2 times a day. Takes for Polycystic Ovarian Syndrome. (Patient taking differently: Take 1,000 mg by mouth 2 times a day Takes for Polycystic OvarianSyndrome.) Vit-Fe Fumarate-FA ( VITAMIN, WITH FOLIC ACID 0.8 MG,) 27-0.8 MG TABS Take 1 tablet by mouth HYDROcodone-acetaminophen (NORCO) 5-325 mg tablet Take 1-2 tablets by mouth every 6 hours as neededfor severe pain. (Patient not taking: Reported on 04/09/2024) 30 tablet 0 cyclobenzaprine (FLEXERIL) 10 mg tablet Take 1 tablet by mouth 3 times a day as needed for muscle spasm. (Patient not taking: Reported on 04/09/2024) 15 tablet 0 cephalexin (KEFLEX) 500 mg capsule Take 500 mg by mouth 3 times a day. nabumetone (RELAFEN) 500 mg tablet Take 500 mg by mouth 2 times a day. (Patient not taking: Reported on 04/09/2024) No facility-administered medications prior to visit. Allergies Allergies Allergen Reactions Sulfa Drugs Unknown/Not Verified ROS Review of Systems Constitutional: Positive for appetite change, chills, fatigue and fever. HENT: Positive for congestion, postnasal drip, rhinorrhea, sinus pressure, sinus pain and sore throat. Eyes: Negative. Respiratory: Positive for cough, chest tightness and shortness of breath. Cardiovascular: Negative. Gastrointestinal: Negative. Endocrine: Negative. Genitourinary: Negative. Musculoskeletal: Negative. Skin: Negative. Neurological: Positive for headaches. Negative for dizziness, light-headedness and numbness. Physical / Results BP 114/82 (Patient Position: Sitting) Pulse 80 Temp 96.7 ??F (35.9 ??C) (Temporal) Resp 18 Ht 1.664m (5' 5.5) Wt 91.3 kg (201 lb 4.8 oz) BMI 32.99 kg/m2 LMP: 04/09/2024 Physical Exam Vitals and nursing note reviewed. Constitutional: General: She is not in acute distress. Appearance: Normal appearance. She is obese. She is not toxic-appearing. HENT: Head: Normocephalic and atraumatic. Right Ear: Tympanic membrane, ear canal and external ear normal. Left Ear: Tympanic membrane, ear canal and external ear normal. Nose: Congestion present. Mouth/Throat: Mouth: Mucous membranes are moist. Pharynx: Oropharynx is clear. Posterior oropharyngeal erythema present. No oropharyngeal exudate. Eyes: Extraocular Movements: Extraocular movements intact. Cardiovascular: Rate and Rhythm: Normal rate and regular rhythm. Pulses: Normal pulses. Heart sounds: Normal heart sounds. Pulmonary: Effort: Pulmonary effort is normal. Breath sounds: Wheezing present. Musculoskeletal: General: Normal range of motion. Cervical back: Normal range of motion. No tenderness. Lymphadenopathy: Cervical: No cervical adenopathy. Skin: General: Skin is warm and dry. Neurological: General: No focal deficit present. Mental Status: She is alert and oriented to person, place, and time. Patient or insurance representative communicated understanding of plan and education received. LOPER ADVOCATE documented in this encounter Plan of Treatment Not on file documented as of this encounter Results * XRAY CHEST PA AND LATERAL (04/09/2024 9:11 AM DEVELOPER ADVOCATE) Anatomical Region Laterality Modality Chest, Lung Computed Radiogr aphy 04/09/2024 9:17 AM DEVELOPER ADVOCATE Narrative 04/09/2024 9:19 AM DEVELOPER ADVOCATE EXAM: XRAY CHEST PA AND LATERAL INDICATION: [...] Francesco Nuno MD on 04/09/2024 9:19 AM DEVELOPER ADVOCATE Procedure Note Francesco Nuno MD - 04/09/2024 [...] Francesco Nuno MD on 04/09/2024 9:19 AM DEVELOPER ADVOCATE [facility]NOST[facility] Final Result documented in this encounter Visit Diagnoses Diagnosis Acute cough- Primary Acute non-recurrent sinusitis, unspecified location Acute cough documented in this encounter Care Teams Car Servicer Relationship Specialty Start Date End Date Provider, No Attributed, RESOURCE [address] PCP - Attributed Provider 09/14/16 documented as of this encounter
--- OUTSIDE RECORDS SUMMARY | 2024-04-23 07:54 | XMS_ITS | Encounter Summary ---
Author Organization [facility] Address [facility] [place] [address] Care Team Providers Care Technology Education Teacher Name Role Phone Provider, No Attributed RESOURCE Unavailable Unavailable Encounter Details Date Type Department Care Team (Latest Contact Info) Description 04/09/2024 9:04 AM REPAIRER ART OBJECTS Hospital Encounter [facility] [address] [place] [address] Brigida Kohli PA [address] [place] [address] Discharge Disposition: Home, Self Care Social History [...] MG TABS Take 1 tablet by mouth HYDROcodone-acet aminophen (NORCO) 5-325 mg tablet Take 1-2 tablets by mouth every 6 hours as needed for severe pain. 30 tablet 0 07/19/2014 cyclobenzaprine (FLEXERIL) 10 mg tablet Take 1 tablet by mouth 3 times a day as needed for muscle spasm. 15 tablet 0 07/19/2014 nabumetone (RELAFEN) 500 mg tablet Take 500 mg by mouth 2 times a day. 04/04/2014 documented as of this encounter Plan of Treatment Not on file documented as of this encounter Visit Diagnoses Not on filedocumented in this encounter Care Teams Technology Education Teacher Relationship Specialty Start Date End Date Provider, No Attributed, RESOURCE [address] PCP - Attributed Provider 09/14/16 documented as of this encounter
--- OUTSIDE RECORDS SUMMARY | 2024-04-23 07:54 | XMS_ITS | Clinical Summary ---
Author Organization [facility] Address [facility] [place] [address] Care Team Providers Care Trumpet Player Name Role Phone Brigida Kohli Unavailable [phone] Allergies Active Allergy Reactions Criticality Noted Date Comments Sulfa Drugs Unknown/Not Verified 07/28/2011 Medications nabumetone (RELAFEN) 500 mg tablet Take 500 mg by mouth 2 times a day. 04/04/20 14 Active metFORMIN (GLUCOPHAGE) 500 MG tablet Take by mouth 2 times a day. Takes for Polycystic Ovarian Syndrome. Active HYDROcodone-matt taminophen (NORCO) 5-325 mg tablet Take 1-2 tablets by mouth every 6 hours as needed for severe pain. 30 tablet 0 07/20/19 15 Active Additional Information Patient not taking.Reason: By Provider, Reported on 04/09/2024 ibuprofen (MOTRIN) 600 mg tablet Take 1 tablet by mouth every 6 hours as needed for moderate pain. 40 tablet 0 07/20/19 15 Active cyclobenzaprine (FLEXERIL) 10 mg tablet Take 1 tablet by mouth 3 times a day as needed for muscle spasm. 15 tablet 0 07/20/19 15 Active Additional Information Patient not taking.Reason: By Provider, Reported on 04/09/2024 Vit-Fe Fumarate-FA ( VITAMIN, WITH FOLIC ACID 0.8 MG,) 27-0.8 MG TABS Take 1 tablet by mouth Active albuterol HFA (PROVENTIL,PROA IR,VENTOLIN) 108 (90 Base) MCG/ACT inhalerIndicati ons:Acute non-recurrent sinusitis, unspecified location Inhale 2 puffs orally Every 4 hours as needed for shortness of breath, wheezing or cough Shake well before using. 8 g 04/09/20 Active fluconazole (DIFLUCAN) 200 mg tabletIndicatio ns:Acute non-recurrent sinusitis, unspecified location Take 1 tablet (200 mg) by mouth 1 time per day For yeast infection. May repeat if needed after 48 hours. 2 tablet 04/09/20 Active cephalexin (KEFLEX) 500 mg capsule Take 500 mg by mouth 3 times a day. 024 Discontinu ed(Therapy completed) amoxicillin-cla vulanate potassium (AUGMENTIN) 875-125 mg tabletIndicatio ns:Acute non-recurrent sinusitis, unspecified location Take 1 tablet by mouth 2 times a day for 7 days 14 tablet 04/09/20 24 024 predniSONE 10 mg tabletIndicatio ns:Acute non-recurrent sinusitis, unspecified location Take 4 tablets (40 mg) by mouth 1 time per day for 3 days, THEN 3 tablets (30 mg) 1 time per day for 3 days, THEN 2 tablets (20 mg) 1 time per day for 3 days, THEN 1 tablet (10 mg) 1 time per day for 3 days. 30 tablet 04/09/20 24 025 Active Problems Problem Noted Date Diagnosed Date PCOS (polycystic ovarian syndrome) 05/05/2014 Frequent UTI 05/05/2014 Encounters Date Type Department Care Team Description 04/09/2024 9:05 AM HYDROGEN BRAZE FURNACE OPERATOR - 04/09/2024 11:59 PM HYDROGEN BRAZE FURNACE OPERATOR Hospital Encounter [facility] RAD[facility] [address] [place] [address] Brigida Kohli PA Acute cough Discharge Disposition: Home, Self Care 04/09/2024 9:04 AM HYDROGEN BRAZE FURNACE OPERATOR Hospital Encounter [facility] [address] [place] [address] Brigida Kohli PA Discharge Disposition: Home, Self Care 04/09/2024 9:00 AM HYDROGEN BRAZE FURNACE OPERATOR Office Visit [facility] [address] [place] [address] Brigida Kohli PA Acute cough (Primary Dx); Acute non-recurrent sinusitis, unspecified location Discharge Disposition: Home, Self Care 04/09/2024 Orders Only [facility] [address] [place] [address] Brigida Kohli PA Sore throat (Primary Dx) 04/09/2024 Orders Only [facility] [address] [place] [address] Brigida Kohli PA Sore throat (Primary Dx) from Last 3 Months Family History Medical History Relation Comments No Known Problems Brother High Cholesterol Father Hypertension Father Parkinsonism Maternal Grandmother Other Mother dizziness Not otherwise listed - Cancer Paternal Grandfath er lung cancer with brain mets No Known Problems Paternal Grandmother No Known Problems Sister Breast Cancer Neg Hx Colorectal Cancer Neg Hx Diabetes Neg Hx Relation Status Comments Brother Alive Father Alive Maternal Grandfather Alive Maternal Grandmother Mother Alive Paternal Grandfather Paternal Grandmother Alive Sister Alive Social History Tobacco Use Types [...] file Not on file Not on file Last Filed Vital Signs Vital Sign Reading Time Taken Comments Blood Pressure 114/82 04/09/2024 9:03 AM HYDROGEN BRAZE FURNACE OPERATOR Pulse 80 04/09/2024 9:03 AM HYDROGEN BRAZE FURNACE OPERATOR Temperature 35.9 C (96.7 F) 04/09/2024 9:03 AM HYDROGEN BRAZE FURNACE OPERATOR Respiratory Rate 18 04/09/2024 9:03 AM HYDROGEN BRAZE FURNACE OPERATOR Oxygen Saturation 99% 07/19/2014 8:39 PM CDT Inhaled Oxygen Concentration - - Weight 91.3 kg (201 lb 4.8 oz) 04/09/2024 9:03 A M HYDROGEN BRAZE FURNACE OPERATOR Height 166.4 cm (5' 5.5) 04/09/2024 9:03 AM HYDROGEN BRAZE FURNACE OPERATOR Body Mass Index 32.99 04/09/2024 9:03 AM HYDROGEN BRAZE FURNACE OPERATOR Plan of Treatment Health Maintenance Due Date Last Done Comments Hepatitis B Vaccine (1 of 3 - 19+ 3-dose series) 2008 Lipid Screening 2010 Pap Smear 2010 TDAP/TD VACCINE (1 - Tdap) 2010 HPV 27-45yr Vaccine (1 - 3-DOSE SERIES) 2016 Covid-19 Vaccine (1 - 2023- season) 2023 Influenza Vaccine (#1) 2023 2, 02/04/2019, 01/17/2018, Additional history exists Diabetes Screening 01/01/2027 01/02/2024, 0 09/26/2018, 03/28/2018, Additional history exists Hepatitis C Screening Completed 11/12/2010 HIV One Time Screening Ages 15-65 Completed 05/05/2016, 11/12/2010 Pneumococcal Vaccine (0-5yr; and At-risk 6-49yr) Aged Out No longer el igible based on patient's age to complete this topic Procedures Procedure Name Priority Date/Time Associated Diagnosis Comments XRAY CHEST PA AND LATERAL Routine 04/09/2024 9:11 AM HYDROGEN BRAZE FURNACE OPERATOR Acute cough COMPREHENSIVE METABOLIC PANEL STAT 04/08/2014 8:30 PM HYDROGEN BRAZE FURNACE OPERATOR from Last 3 Months or Most Recently Relevant to Health Maintenance Results * XRAY CHEST PA AND LATERAL (04/09/2024 9:11 AM HYDROGEN BRAZE FURNACE OPERATOR) Anatomical Region Laterality Modality Chest, Lung Computed Radiogr aphy 04/09/2024 9:17 AM HYDROGEN BRAZE FURNACE OPERATOR Narrative 04/09/2024 9:19 AM HYDROGEN BRAZE FURNACE OPERATOR EXAM: XRAY CHEST PA AND LATERAL INDICATION: [...] Francesco Nuno MD on 04/09/2024 9:19 AM HYDROGEN BRAZE FURNACE OPERATOR Procedure Note Francesco Nuno MD - 04/09/2024 [...] Francesco Nuno MD on 04/09/2024 9:19 AM HYDROGEN BRAZE FURNACE OPERATOR [facility]ENO RADIOLOGY DIAGNOSTIC Final Result * (ABNORMAL) COMPREHENSIVE METABOLIC PANEL (04/08/2014 8:30 PM HYDROGEN BRAZE FURNACE OPERATOR) Glucose 111(H) 70 - 100 mg/dL 04/08/2014 8:[address] [facility] BUN 15 6 - 22 mg/dL 04/08/2014 8:[address] [facility] Creatinine 0.80 0.60 - 1.10 mg/dL 04/08/2014 8:[address] [facility] BUN/Creatinine Ratio 18.8 10.0 - 25.0 04/08/2014 8:[address] [facility] Sodium 140 135 - 145 meq/L 04/08/2014 8:[address] [facility] Potassium 3.6 3.5 - 5.3 meq/L 04/08/2014 8:[address] [facility] Chloride 111(H) 99 - 110 meq/L 04/08/2014 8:[address] [facility] CO2 20 20 - 29 meq/L 04/08/2014 8:[address] [facility] Anion Gap with K 13 6 - 20 meq/L 04/08/2014 8:[address] [facility] Calcium 8.9 8.5 - 10.5 mg/dL 04/08/2014 8:[address] [facility] Protein Total 6.8 6.0 - 8.2 g/dL 04/08/2014 8:[address] [facility] Albumin 4.3 3.5 - 5.0 g/dL 04/08/2014 8:[address] [facility] Alkaline Phosphatase 49 30 - 150 U/L 04/08/2014 8:[address] [facility] AST - SGOT 17 0 - 35 U/L 04/08/2014 8:[address] [facility] ALT - SGPT 13 0 - 55 U/L 04/08/2014 8:[address] [facility] Bilirubin Total 0.5 0.2 - 1.2 mg/dL 04/08/2014 8:[address] [facility] Age 23 Years 04/08/2014 8:[address] [facility] eGFR Non- 88 >=60 mL/min/1.7 3m2 04/08/2014 8:[address] [facility] eGFR >90 >=60 mL/min/1.7 3m2 04/08/2014 8:[address] [facility] Blood BLOOD SPECIMEN / Unknown Venipuncture / Unknown 04/08/2014 8:30 PM HYDROGEN BRAZE FURNACE OPERATOR 04/08/2014 8:34 PM HYDROGEN BRAZE FURNACE OPERATOR us Hai Krueger DO LAB BLOOD Final Resu lt [address] [address] from Last 3 Months or Most Recently Relevant to Health Maintenance Care Teams Trumpet Player Relationship Specialty Start Date End Date Brigida Kohli PA [address] [place] [address] PCP - Attributed Provider 04/10/24
--- OUTSIDE RECORDS SUMMARY | 2024-04-23 07:54 | XMS_ITS | Encounter Summary ---
Author Organization [facility] Address [address] [place] [address] Care Team Providers Care Plan Rep Name Role Phone Rosamaria Jones MD Primary Care Provider [phone] Madelaine Mitchell DO Unavailable [phone] Jonas Cullen MD Unavailable Elaina Jiang APRN FOLDER STITCHER OPERATOR Unavailable [phone] CreElaina morales APRN FOLDER STITCHER OPERATOR Unavailable [phone] No Ref-Primary, Physician Primary Care Provider Rosamaria Jones MD Primary Care Provider [phone] Francesco Merritt MD Unavailable [phone] Rosamaria Jones MD Unavailable Loyda Farmer MD Unavailable [phone] Elaina Jiang APRN FOLDER STITCHER OPERATOR Unavailable [phone] Rosamaria Jones MD Unavailable Gabe Carl MD Unavailable [phone] Danielle Alcantar MD Unavailable [facility] Primary Care Provider Madelaine Mitchell DO Unavailable [phone] Reason for Visit * Reason Onset Date Comments Results 10/07/2016 hgb Encounter Details Date Type Department Care Team (Late st Contact Info) Description 10/07/2016 MyC Medical Advice [facility] [address] [place] [phone] Madelaine Mitchell DO [address] [place] [address] Results (hgb) Social History Tobacco Use Types [...] Out COVID-19 03/31/2021 03/31/2021 03/31/2021 7:10 AM STAFF PSYCHOLOGIST Rule Out COVID-19 09/15/2022 09/15/2022 09/15/2022 9:15 AM CDT documented as of this encounter Care Teams Plan Rep Relationship Specialty Start Date End Date Rosamaria Jones MD [address] [place] [address] PCP - General Internal Medicine 09/12/14 07/24/18 [place] [address] [place] [address] PCP - Assigned PCP 02/04/18 04/07/18 Elaina Jiang APRN FOLDER STITCHER OPERATOR [address] [place] [address] PCP - Assigned PCP 04/08/18 06/19/18 No Ref-Primary, Physician PCP - General 07/25/18 10/05/18 Rosamaria Jones MD [address] [address] PCP - General Internal Medicine 10/06/18 11/27/[address] [address] PCP - General 11/28/23 Madelaine Mitchell DO [address] [address] registered dietitian 07/26/16 Elaina Jiang APRN FOLDER STITCHER OPERATOR [address] [place] [address] Assigned PCP 04/08/18 03/30/19 Francesco Merritt MD [address] [place] [address] Family Medicine - Sports Medicine 12/14/18 Rosamaria Jones MD [address] [facility] [address] [address] Assigned PCP 03/31/19 09/28/19 Loyda Farmer MD [address] [place], [place] [id number] Assigned PCP 09/29/19 10/26/19 Elaina Jiang APRN FOLDER STITCHER OPERATOR [address] [place], [place] [address] Assigned PCP 10/27/19 04/03/21 Rosamaria Jones MD [address] [place], [place] [address] Assigned PCP 04/04/21 05/08/21 Gabe Carl MD [address] [facility] [place] [place] [address] Assigned PCP 05/09/21 Danielle Alcantar MD [address] [place], [place] [address] Assigned Musculoskeletal Provider 07/18/21 02/03/23 Madelaine Mitchell DO [address] [facility] [address] [place] [address] Assigned OBGYN Provider 03/09/24 documented as of this encounter
--- OUTSIDE RECORDS SUMMARY | 2024-04-23 07:55 | XMS_ITS | Clinical Summary ---
Author Organization [facility] Address [address] [place] [address] Care Team Providers Care Jig And Fixture Builder Apprentice Name Role Phone Rosamaria Jones MD Primary Care Provider [phone] Source Comments You are receiving this document as you are listed as the primary care provider,follow-up provider, or the patient has been referred to you for consultation.This is in compliance with the Medicare and[facility] Cent[facility]aid EHR Incentive Program,which states Providers who transition their patient to another setting of careor provider of care or refers their patient to another provider of care shouldprovide summary care record for each transition of care or referral. [employer] Technology[facility] Hospital[facility]er Allergies Active Allergy Reactions Criticality Noted Date [...] nts Yes 01/10/2017 No known active problems Social History Tobacco Use Types Packs/Day Years Used Date Smoking Tobacco: Never Estimated Date of Delivery Comme nts Yes 01/10/2017 Sex and Gender Information Value Date Recorded Sex Assigned at Not on file Gender Identity Not on file Sexual Orientation Not on file Last Filed Vital Signs Vital Sign Reading Time Taken Comments Blood Pressure 123/75 06/15/2016 11:56 AM ARMED SECURITY PROFESSIONAL Pulse 104 06/15/2016 11:56 AM ARMED SECURITY PROFESSIONAL Temperature 36.7 C (98.1 F) 06/15/2016 11:56 AM ARMED SECURITY PROFESSIONAL Respiratory Rate 20 06/15/2016 11:56 AM ARMED SECURITY PROFESSIONAL Oxygen Saturation 98% 06/15/2016 11:56 AM ARMED SECURITY PROFESSIONAL Inhaled Oxygen Concentration - - Weight 86.2 [...] age to complete this topic Care Teams Jig And Fixture Builder Apprentice Relationship Specialty Start Date End Date Rosamaria Jones MD [address] [place], [place] [address] PCP - General 11/10/15
--- NOTE | 2024-04-23 08:16 | ED.GENADULT ---
HPI - General Adult General Chief complaint: Chest Pain Stated complaint: heaviness in chest/hard to breathe Time Seen by Provider: 04/23/24 08:09 History of Present Illness HPI narrative: chest heaviness that pt is worried about, worse this morning than yesterday. headache, abd pain. several episodes of diarrhea, vomit x 1 at 6 am. thinks she is dehydrated, states has not had anything to drink since yesterday morning. 33 year old woman presenting to the emergency department with concern specifically of her heart. She is worried about being dehydrated following gate watch vomiting and diarrhea. Began to have a sensation of a heaviness though in her chest that began yesterday. Some abdominal pain and was recently recommended for omeprazole; has been taking famotidine at this point. She is nauseated but nausea meds do not typically work. Does not really want anything. I understand her to say that she had influenza over [place]. Related Data Home Medications ?Medication ?Instructions ?Recorded ?Confirmed clonidine HCl 0.1 mg tablet 0.1 mg PO DAILY PRN 03/28/24 04/04/24 Previous Rx's ?Medication ?Instructions ?Recorded metformin 500 mg tablet 1,000 mg (2 x 500 mg) PO BID #360 09/26/23 tabs fluticasone propionate 50 1 spray intranasal BID #16 grams 01/23/24 mcg/actuation nasal spray,suspension metoprolol succinate 25 mg 25 mg PO QDAY #30 tabs 03/29/24 tablet,extended release 24 hr lorazepam 0.5 mg tablet 0.5 mg PO BID PRN anxiety #60 tabs 04/01/24 Allergies Allergy/AdvReac Type Severity Reaction Status Date / Time polymyxin B Allergy Severe Swelling Verified 04/04/24 08:16 trimethoprim Allergy Severe Swelling Verified 04/04/24 08:16 chlordiazepoxide Allergy Intermediate Swelling Verified 04/04/24 08:16 of Lip/Tongue/Throat Sulfa (Sulfonamide Allergy Mild Swelling Verified 04/04/24 08:16 Antibiotics) Review of Systems Status of ROS: Reports: 6 or more systems reviewed and unremarkable except as noted in History and below [facility] Medical History H/O migraine during ?Z86.69 - Personal history of other diseases of the nervous system and sense organs (ICD-10) ?Z87.59 - Personal history of other complications of , childbirth and the puerperium (ICD-10) Gestational hypertension ?O13.9 - Gestational [-induced] hypertension without significant proteinuria, unspecified trimester (ICD-10) Erosive gastritis ?K29.60 - Other gastritis without bleeding (ICD-10) Alcohol withdrawal syndrome ?F10.239 - Alcohol dependence with withdrawal, unspecified (ICD-10) Surgical History S/P thoracotomy ?Z98.890 - Other specified postprocedural states (ICD-10) Status post delivery (2015) ?Z98.891 - History of uterine scar from previous surgery (ICD-10) History of left knee surgery ?Z98.890 - Other specified postprocedural states (ICD-10) History of laser assisted in situ keratomileusis (2008) ?Z98.890 - Other specified postprocedural states (ICD-10) History of knee surgery (2015) ?Z98.890 - Other specified postprocedural states (ICD-10) History of colposcopy (2018) ?Z98.890 - Other specified postprocedural states (ICD-10) History of colonoscopy ?Z98.890 - Other specified postprocedural states (ICD-10) Family History Aunt Breast cancer Depression Other Kidney disease Prostate cancer Social History Narrative: , works in [employer], 2 kids Exercises 3/week (walk/run) Non-smoker- quiet 2016, hx of 8 years on and off smoking Social drinker (1/week) What is your current living situation?: I presently have a place to live Problems where you live: no known problems In the past 12 months, utilities in danger of being shut off: no In past 12 months, lack of transportation kept you from medical appts, meetings, work, or getting things needed for daily living: no In the past 12 mos, have been you worried that your food would run out before you had money to buy more?: sometimes true In the past 12 mos, the food you bought just didn't last and you didn't have money to buy more?: never true Physical activity type: none Smoking Status: Former smoker Do you use any of these nicotine containing products: None Second hand tobacco smoke exposure: No How often do you have a drink containing alcohol: 2-3 times a week How often do you have six or more drinks on one occasion: Never AUDIT-C Alcohol total score: 3 Non-prescribed substance use: denies use Are you now , , , , never or living with a partner: Social isolation score (0-1 are the most socially isolated patients): 1 How often does anyone, including family, friends and others, physically hurt you: never How often does anyone, including family, friends and others, insult or talk down to you: never How often does anyone, including family, friends and others, threaten you with harm: never How often does anyone, including family, friends and others, scream or curse at you: never Gender Identity: female Are you currently sexually active: Yes Health Related Social Needs: food insecurity (Z59.41) Exam Narrative: Exam Narrative: Pleasant. NAD. Breathing easily. Seems fatigued. Lungs are clear. Heart in regular rate and rhythm. Not really wrist reproducible discomfort to palpation of the chest. Abdomen is soft and not notably tender. Extremities are well perfused without edema. Const: Vital Signs, click to edit/add: Vital Signs - 24 hr 04/23/24 07:53 Temperature 97.2 F L Pulse Rate [Pulse Oximeter] 89 Respiratory Rate 16 Blood Pressure [Ri ght Upper Arm] 117/93 H Pulse Oximetry 95 Oxygen Delivery Me thod Room Air Documenting provider has reviewed patient's vital signs: yes Course Vital Signs Vital signs: Initial Vital Signs Temperature 97.2 F L 04/23/24 07:53 Temperature Source Temporal Artery Scan 04/23/24 07:53 Pulse Rate 89 04/23/24 07:53 Respiratory Rate 16 04/23/24 07:53 Respiratory Effort Normal, Spontaneous, Non-Labored 04/23/24 07:53 Respiratory Depth Normal 04/23/24 07:53 Respiratory Pattern Normal 04/23/24 07:53 Blood Pressure 117/93 H 04/23/24 07:53 Blood Pressure Mean 101 04/23/24 07:53 Blood Pressure Position Supine 04/23/24 07:53 Pulse Oximetry 95 04/23/24 07:53 Oxygen Delivery Method Room Air 04/23/24 07:53 Vital Signs Temperature 97.2 F L 04/23/24 07:53 Pulse Rate 89 04/23/24 07:53 Respiratory Rate 16 04/23/24 07:53 Blood Pressure 117/93 H 04/23/24 07:53 Pulse Oximetry 95 04/23/24 07:53 Oxygen Delivery Method Room Air 04/23/24 07:53 Temperature 97.2 F L 04/23/24 07:53 Pulse Rate 89 04/23/24 07:53 Respiratory Rate 16 04/23/24 07:53 Blood Pressure 117/93 H 04/23/24 07:53 Pulse Oximetry 95 04/23/24 07:53 Oxygen Delivery Method Room Air 04/23/24 07:53 Medical Decision Making MDM Narrative Medical decision making narrative: EKG was done prior to my seeing Ms. Moss. Looks similar to EKG from March of 2024. I discussed these findings with her. She says that probably she should just rest then. And try to hydrate. I note that we have not ruled anything out, including cardiac injury, but that the EKG itself is not immediately actionable and that we could do some blood tests yet. She is reassured by the EKG though an does not want any further evaluation at this time. See patient discharge plan for further disc Rest up. Focus on small frequent hydration. Consider slow advance of diet over the next 36 hours from diluted juices, soup broths, rice, crackers, toast. Can take Imodium if diarrhea gets to be too much; as long as no fever or blood in your stool. Return for worsening chest pain or shortness of breath. Medical Records Medical records reviewed: Yes I reviewed the patient's medical records ECG Data Attestation: I personally reviewed and interpreted this ECG as follows: (Normal sinus at 89. No delta wave. No clear ischemic changes.) Discharge Plan Discharge Clinical Impression: Malaise Patient Disposition: Home, Self-Care Condition: Stable Instructions: Fatigue (ED) Additional Instructions: Rest up. Focus on small frequent hydration. Consider slow advance of diet over the next 36 hours from diluted juices, soup broths, rice, crackers, toast. Can take Imodium if diarrhea gets to be too much; as long as no fever or blood in your stool. Return for worsening chest pain or shortness of breath. Prescriptions: No Action clonidine HCl 0.1 mg tablet 0.1 mg PO DAILY PRN metformin 500 mg tablet 1,000 mg PO BID Qty: 360 3RF fluticasone propionate 50 mcg/actuation spray,suspension 1 spray intranasal BID Qty: 16 10RF Rx Instructions: administer into each nostril metoprolol succinate 25 mg tablet extended release 24 hr 25 mg PO QDAY Qty: 30 2RF lorazepam 0.5 mg tablet 0.5 mg PO BID PRN (Reason: anxiety) Qty: 60 0RF Follow Up/Referrals: Pedro Boudreaux MD [Primary Care Provider] - Stand Alone Forms: [facility] Inst[facility]
--- OUTSIDE RECORDS SUMMARY | 2024-04-23 08:42 | XMS_ITS | Encounter Summary ---
Author Organization [facility] Address [employer] [place] [address] Care Team Providers Care Personal Attendant Name Role Phone Provider, No Attributed RESOURCE Unavailable Unavailable Encounter Details Date Type Department Care Team (Latest Contact Info) Description 04/09/2024 9:04 AM LUG BREAKER AND WIRE PULLER Hospital Encounter [facility] [address] [place] [address] Brigiad Kohli PA [address] [place] [address] Discharge Disposition: Home, Self Care Social History [...] on filedocumented in this encounter Care Teams Personal Attendant Relationship Specialty Start Date End Date Provider, No Attributed, RESOURCE [address] PCP - Attributed Provider 09/14/16 documented as of this encounter
--- OUTSIDE RECORDS SUMMARY | 2024-04-23 08:42 | XMS_ITS | Encounter Summary ---
Author Organization Address [address] [place] [address] [address] [place] [address] Care Team Providers Care Plastics Bench Mechanic Name Role Phone Provider, No Attributed RESOURCE Unavailable Unavailable Encounter Details Date Type Department Care Team (Latest Contact Info) Description 04/09/2024 9:05 AM NEW PATIENT ESCORT - 04/09/2024 11:59 PM NEW PATIENT ESCORT Hospital Encounter [facility] [address] [place] [address] Brigida Kohli, PA [address] [place] [address] Acute cough Discharge Disposition: Home, Self Care [...] PA AND LATERAL Routine 04/09/2024 9:11 AM NEW PATIENT ESCORT Acute cough documented in this encounter Results * XRAY CHEST PA AND LATERAL (04/09/2024 9:11 AM NEW PATIENT ESCORT) Anatomical Region Laterality Modality Chest, Lung Computed Radiogr aphy 04/09/2024 9:17 AM NEW PATIENT ESCORT Narrative 04/09/2024 9:19 AM NEW PATIENT ESCORT EXAM: XRAY CHEST PA AND LATERAL INDICATION: [...] Francesco Nuno MD on 04/09/2024 9:19 AM NEW PATIENT ESCORT Procedure Note Francesco Nuno MD - 04/09/2024 [...] Francesco Nuno MD on 04/09/2024 9:19 AM NEW PATIENT ESCORT [facility] Final Result documented in this encounter Visit Diagnoses Diagnosis Acute cough documented in this encounter Care Teams Plastics Bench Mechanic Relationship Specialty Start Date End Date Provider, No Attributed, RESOURCE [address] PCP - Attributed Provider 09/14/16 documented as of this encounter
--- OUTSIDE RECORDS SUMMARY | 2024-04-23 08:42 | XMS_ITS | Encounter Summary ---
Author Organization [facility] Address [address] [place] [address] [address] [place] [address] Care Team Providers Care Fence Supervisor Name Role Phone Provider, No Attributed RESOURCE Unavailable Unavailable Encounter Details Date Type Department Care Team (Late st Contact Info) Description 04/09/2024 Orders Only [facility] [address] [place] [address] Brigida Kohli PA [address] [place] [address] Sore throat (Primary Dx) Social History Tobacco [...] pharyngitis documented in this encounter Care Teams Fence Supervisor Relationship Specialty Start Date End Date Provider, No Attributed, RESOURCE [address] PCP - Attributed Provider 09/14/16 documented as of this encounter
--- OUTSIDE RECORDS SUMMARY | 2024-04-23 08:42 | XMS_ITS | Encounter Summary ---
Author Organization [facility] Address [facility] [address] [place] [address] Care Team Providers Care Adapted Physical Education Teacher Name Role Phone Provider, No [...] st Contact Info) Description 04/09/2024 9:00 AM BIOMEDICAL ANALYTICAL SCIENTIST Office Visit [facility] [address] [place] [address] Brigida Kohli PA [address] [place] [address] Acute cough (Primary Dx); Acute non-recurrent sinusitis, [...] Comments Blood Pressure 114/82 04/09/2024 9:03 AM BIOMEDICAL ANALYTICAL SCIENTIST Pulse 80 04/09/2024 9:03 AM BIOMEDICAL ANALYTICAL SCIENTIST Temperature 35.9 C (96.7 F) 04/09/2024 9:03 AM BIOMEDICAL ANALYTICAL SCIENTIST Respiratory Rate 18 04/09/2024 9:03 AM BIOMEDICAL ANALYTICAL SCIENTIST Oxygen Saturation - - Inhaled Oxygen Concentration - - Weight 91.3 kg (201 lb 4.8 oz) 04/09/2024 9:03 A M BIOMEDICAL ANALYTICAL SCIENTIST Height 166.4 cm (5' 5.5) 04/09/2024 9:03 AM BIOMEDICAL ANALYTICAL SCIENTIST Body Mass Index 32.99 04/09/2024 9:03 AM BIOMEDICAL ANALYTICAL SCIENTIST documented in this encounter Progress Notes * [...] to person, place, and time. Patient or hobbies and crafts sales representative communicated understanding of plan and education received. EDICAL ANALYTICAL SCIENTIST documented in this encounter Plan of Treatment Not on file documented as of this encounter Results * XRAY CHEST PA AND LATERAL (04/09/2024 9:11 AM BIOMEDICAL ANALYTICAL SCIENTIST) Anatomical Region Laterality Modality Chest, Lung Computed Radiogr aphy 04/09/2024 9:17 AM BIOMEDICAL ANALYTICAL SCIENTIST Narrative 04/09/2024 9:19 AM BIOMEDICAL ANALYTICAL SCIENTIST EXAM: XRAY CHEST PA AND LATERAL INDICATION: [...] Francesco Nuno MD on 04/09/2024 9:19 AM BIOMEDICAL ANALYTICAL SCIENTIST Procedure Note Francesco Nuno MD - 04/09/2024 [...] Francesco Nuno MD on 04/09/2024 9:19 AM BIOMEDICAL ANALYTICAL SCIENTIST [facility] Final Result documented in this encounter Visit Diagnoses Diagnosis Acute cough- Primary Acute non-recurrent sinusitis, unspecified location Acute cough documented in this encounter Care Teams Adapted Physical Education Teacher Relationship Specialty Start Date End Date Provider, No Attributed, RESOURCE [address] PCP - Attributed Provider 09/14/16 documented as of this encounter
--- OUTSIDE RECORDS SUMMARY | 2024-04-23 08:42 | XMS_ITS | Clinical Summary ---
Author Organization [facility] [employer] Formerly [facility], [facility] Address [employer] [place] [address] Care Team Providers Care Car Escort Name Role Phone Brigida Kohli Unavailable [phone] Allergies Active Allergy Reactions Criticality Noted Date [...] Department Care Team Description 04/09/2024 9:05 AM HYPOID GEAR GENERATOR - 04/09/2024 11:59 PM HYPOID GEAR GENERATOR Hospital Encounter [facility] [address] [place] [address] Brigida Kohli PA Acute cough Discharge Disposition: Home, Self Care 04/09/2024 9:04 AM HYPOID GEAR GENERATOR Hospital Encounter [facility] [address] [place] [address] Brigida Kohli PA Discharge Disposition: Home, Self Care 04/09/2024 9:00 AM HYPOID GEAR GENERATOR Office Visit [facility] [address] [place] [address] Brigida Kohli PA Acute cough (Primary Dx); Acute non-recurrent sinusitis, unspecified location Discharge Disposition: Home, Self Care 04/09/2024 Orders Only [facility] [address] [place] [address] Brigida Kohli PA Sore throat (Primary Dx) 04/09/2024 Orders Only [facility] [address] [place] [address] Brigida Kohli PA Sore throat (Primary Dx) [...] Comments Blood Pressure 114/82 04/09/2024 9:03 AM HYPOID GEAR GENERATOR Pulse 80 04/09/2024 9:03 AM HYPOID GEAR GENERATOR Temperature 35.9 C (96.7 F) 04/09/2024 9:03 AM HYPOID GEAR GENERATOR Respiratory Rate 18 04/09/2024 9:03 AM HYPOID GEAR GENERATOR Oxygen Saturation 99% 07/19/2014 8:39 PM CDT Inhaled Oxygen Concentration - - Weight 91.3 kg (201 lb 4.8 oz) 04/09/2024 9:03 A M HYPOID GEAR GENERATOR Height 166.4 cm (5' 5.5) 04/09/2024 9:03 AM HYPOID GEAR GENERATOR Body Mass Index 32.99 04/09/2024 9:03 AM HYPOID GEAR GENERATOR Plan of Treatment Health Maintenance Due Date [...] PA AND LATERAL Routine 04/09/2024 9:11 AM HYPOID GEAR GENERATOR Acute cough COMPREHENSIVE METABOLIC PANEL STAT 04/08/2014 8:30 PM HYPOID GEAR GENERATOR from Last 3 Months or Most Recently Relevant to Health Maintenance Results * XRAY CHEST PA AND LATERAL (04/09/2024 9:11 AM HYPOID GEAR GENERATOR) Anatomical Region Laterality Modality Chest, Lung Computed Radiogr aphy 04/09/2024 9:17 AM HYPOID GEAR GENERATOR Narrative 04/09/2024 9:19 AM HYPOID GEAR GENERATOR EXAM: XRAY CHEST PA AND LATERAL INDICATION: [...] Francesco Nuno MD on 04/09/2024 9:19 AM HYPOID GEAR GENERATOR Procedure Note Francesco Nuno MD - 04/09/2024 [...] Francesco Nuno MD on 04/09/2024 9:19 AM HYPOID GEAR GENERATOR [facility] Final Result * (ABNORMAL) COMPREHENSIVE METABOLIC PANEL (04/08/2014 8:30 PM HYPOID GEAR GENERATOR) Glucose 111(H) 70 - 100 mg/dL 04/08/2014 8:[address] [facility] BUN 15 6 - 22 mg/dL 04/08/2014 8:[address] [facility] Creatinine 0.80 0.60 - 1.10 mg/dL 04/08/2014 8:[address] [facility] BUN/Creatinine Ratio 18.8 10.0 - 25.0 04/08/2014 8:[address] [facility] Sodium 140 135 - 145 meq/L 04/08/2014 8:[address] [facility] Potassium 3.6 3.5 - 5.3 meq/L 04/08/2014 8:[address] [facility] Chloride 111(H) 99 - 110 meq/L 04/08/2014 8:[address] [facility] CO2 20 20 - 29 meq/L 04/08/2014 8:[address] [facility] Anion Gap with K 13 6 - 20 meq/L 04/08/2014 8:[address] [facility] Calcium 8.9 8.5 - 10.5 mg/dL 04/08/2014 8:[address] [facility] Protein Total 6.8 6.0 - 8.2 g/dL 04/08/2014 8:[address] [facility] Albumin 4.3 3.5 - 5.0 g/dL 04/08/2014 8:[address] [facility] Alkaline Phosphatase 49 30 - 150 U/L 04/08/2014 8:[address] [facility] AST - SGOT 17 0 - 35 U/L 04/08/2014 8:[address] [facility] ALT - SGPT 13 0 - 55 U/L 04/08/2014 8:[address] [facility] Bilirubin Total 0.5 0.2 - 1.2 mg/dL 04/08/2014 8:[address] [facility] Age 23 Years 04/08/2014 8:[address] [facility] eGFR Non- 88 >=60 mL/min/1.7 3m2 04/08/2014 8:[address] [facility] eGFR >90 >=60 mL/min/1.7 3m2 04/08/2014 8:[address] [facility] Blood BLOOD SPECIMEN / Unknown Venipuncture / Unknown 04/08/2014 8:30 PM HYPOID GEAR GENERATOR 04/08/2014 8:34 PM HYPOID GEAR GENERATOR us Hai Krueger DO LAB BLOOD Final Resu lt [address] [address] from Last 3 Months or Most Recently Relevant to Health Maintenance Care Teams Car Escort Relationship Specialty Start Date End Date Brigida Kohli PA [address] [place] [address] PCP - Attributed Provider 04/10/24
--- OUTSIDE RECORDS SUMMARY | 2024-04-23 08:42 | XMS_ITS | Clinical Summary ---
Author Organization [facility] Address [place], [place] [address] Care Team Providers Care Tubing Oiler Name Role Phone Pedro Boudreaux MD Primary Care Provider Leana Syed RN, BSN Unavailable [phone] Ceferino Catalan MD Unavailable [phone] Allergies Active Allergy Reactions Criticality Noted Date [...] per actuation) nasal solution (FLONASE) Inhale 1 [place] to both nostrils once daily if needed [...] times daily. 28 Tablet 06/21/2023 9:11 AM KNOTTING MACHINE OPERATOR 06/21/2023 Active hydrOXYzine pamoate (VISTARIL) 50 mg capsuleIndicati ons:Carcinoid tumor of right lung Take 1 Capsule (50 mg) by mouth every 8 hours if needed for Itching or Anxiety. 21 Capsule 06/21/2023 9:11 AM KNOTTING MACHINE OPERATOR 06/21/2023 Active oxyCODONE (ROXICODONE) 5 mg immediate release tabletIndicatio ns:Carcinoid tumor of right lung Take 1-2 Tablets (5-10 mg) by mouth every 4 hours if needed for Pain (moderate - severe). 20 Tablet 06/21/2023 9:11 AM KNOTTING MACHINE OPERATOR 06/21/2023 Active sennosides-docu sate (SENOKOT S) (8.6-50 mg) tabletIndicatio ns:Carcinoid tumor of right lung Take 1-4 Tablets by mouth two times daily. 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 Plan colp 04/25/18 [place] - no visible lesions, no bx. Plan pap due in 1 year pap from previous pap 03/13/19 Pap reminder letter sent. ([facility]) 03/14/19 TE states pt is 25 weeks (ASAD 06/27/19), no appts in chart. ([facility]) CCT tracking PCOS (polycystic ovarian syndrome) 04/26/2017 [...] on file Legal Sex Female 5:26 AM KNOTTING MACHINE OPERATOR Gender Identity Not on file Sexual Orientation [...] Procedure Name Priority Date/Time Associated Diagnosis Comments LONG WALL MINING MACHINE TENDER THIN PREP PAP SCREEN IMAGED Routine 08/20/2020 1:00 PM CDT ANTI HIV 1/2 Routine 11/12/2010 11:20 AM CDT Screen for STD (sexually transmitted disease) ANTI HCV Routine 11/12/2010 11:20 AM CDT Screen for STD (sexually transmitted disease) from Last 3 Months or Most Recently Relevant to Health Maintenance Results * LONG WALL MINING MACHINE TENDER THIN PREP PAP SCREEN IMAGED (08/20/2020 1:00 PM CDT) Case Report Gynecologic Cytology Report Case: [id number] Authorizing Provider: Megan Hernandez MD Collected: 08/20/2020 1300 Ordering Location: [facility] Received: 08/23/2020 0927 First Screen: Bernabe Cummins Specimen: LONG WALL MINING MACHINE TENDER ThinPrep Vial Screening, Cervical/Vaginal 09/01/2020 12:03 PM CDT [facility] INTERPRETATION/ RESULT NEGATIVE FOR INTRAEPITHELIAL LESION OR MALIGNANCY (NIL) (none) 09/01/2020 12:03 PM CDT [facility] IMEN ADEQUACY Satisfactory for evaluation Endocervical component present 09/01/2020 12:03 PM CDT [facility] HPV REQUEST HPV and PAP 09/01/2020 12:03 PM CDT [facility] Date of LMP 07/30/2020 09/01/2020 12:03 PM CDT [facility] Last Pap Date 08/19/2019 09/01/2020 12:03 PM CDT [facility] Last Pap Result NIL 12:03 PM CDT [facility] Additional Information 09/01/2020 12:03 PM CDT [facility] Comment: Interpreted at [facility] - [address], [place] [address] Automated Review Successful 09/01/2020 12:03 PM CDT [facility] Comment:Specimen processed s uccessfully by automated degreasing solution mixer device, ThinPrep Imaging System, [employer] ANCILLARY TESTING LONG WALL MINING MACHINE TENDER HPV Ordered, Please see separate report 09/01/2020 12:03 PM CDT [facility] Note The pap test is [...] and malignant lesions. 09/01/2020 12:03 PM CDT [facility] Other (Cervical/Vagina l) 08/20/2020 1:00 PM CDT 08/23/2020 9:27 AM CDT us Megan Hernandez MD PATHOLOGY/CYTOLOGY Final Result [facility] [address] [place] [address], [place] * ANTI HCV (11/12/2010 11:20 AM CDT) ANTI HCV Non-reacti ve [facility] Blood specimen (specimen) BLOOD SPECIMEN / Unknown 11/12/2010 11:20 AM CDT 11/12/2010 11:08 AM CDT us Capri Marquez MD SEND OUTS F inal Result [facility] INTERNAL ZIP [address] [place] [address] * ANTI HIV 1/2 (11/12/2010 11:20 AM CDT) ANTI HIV 1/2 Non-reacti ve [facility] Blood specimen (specimen) BLOOD SPECIMEN / Unknown 11/12/2010 11:20 AM CDT 11/12/2010 11:08 AM CDT us Capri Marquez MD SEND OUTS F inal Result [facility] INTERNAL ZIP [address] [address] from Last 3 Months or Most Recently Relevant to Health Maintenance Insurance [employer] CROSS OF NON-RI-ITS [facility] OF NON-RI-ITS Advance Directives * Full Code (Latest Code [...] Code Status Discussion: Reviewed Preferences Care Teams Tubing Oiler Relationship Specialty Start Date End Date Pedro Boudreaux MD [address] [place] [address] PCP - General Family Practice 05/10/23 Leana Syed, RN, BSN [address] [place] [address] Nurse Navigator - Oncology Registered Nurse 05/29/23 Ceferino Catalan MD [address] [place] [address] Surgery - Cardiothoracic 06/01/23
--- OUTSIDE RECORDS SUMMARY | 2024-04-23 08:42 | XMS_ITS | Encounter Summary ---
Author Organization [facility] Address [address] [place] [address] [address] [place] [address] Care Team Providers Care Roving Department Supervisor Name Role Phone Provider, No Attributed RESOURCE Unavailable Unavailable Encounter Details Date Type Department Care Team (Late st Contact Info) Description 04/09/2024 Orders Only [facility] [address] [place] [address] Brigida Kohli PA [address] [place] [address] Sore throat (Primary Dx) Social History Tobacco [...] pharyngitis documented in this encounter Care Teams Roving Department Supervisor Relationship Specialty Start Date End Date Provider, No Attributed, RESOURCE [address] PCP - Attributed Provider 09/14/16 documented as of this encounter
--- OUTSIDE RECORDS SUMMARY | 2024-04-23 08:43 | XMS_ITS | Encounter Summary ---
Author Organization [facility] Address [address] [place] [address] Care Team Providers Care Food Sampler Name Role Phone Madelaine Mitchell DO Unavailable Rosamaria Jones MD Primary Care Provider [phone] Francesco Merritt MD Unavailable [phone] Rosamaria Jones MD Unavailable SerumLoyda MD Unavailable CreElaina morales APRN [facility] Unavailable [phone] Rosamaria Jones MD Unavailable MeseretGabe jordan MD Unavailable [phone] Danielle Alcantar MD Unavailable [facility] [place] Primary Care Provider Madelaine Mitchell DO Unavailable Encounter Details Date Type Department Care Team (Late st Contact Info) Description 06/28/2019 [facility] [address] [place] [address], [address] [place] [address] Porsha Vargas, [...] COLP CERVIX/UPPER VAGINA Routine 04/25/2018 12:00 AM ORACLE TECHNICAL DEVELOPER documented in this encounter Results * COLP CERVIX/UPPER VAGINA (04/25/2018 12:00 AM ORACLE TECHNICAL DEVELOPER) us Patient Reported PROCEDURES Final Result documented in this encounter Visit Diagnoses Not on filedocumented in this encounter Additional Health Concerns Infection Onset Date Last Indicated Resolved Time Rule Out COVID-19 03/31/2021 03/31/2021 03/31/2021 7:10 AM ORACLE TECHNICAL DEVELOPER Rule Out COVID-19 09/15/2022 09/15/2022 09/15/2022 9:15 AM CDT Assessment Noted Time PHQ-9 Depression Total Score: 10 019 7:03 AM CDT documented as of this encounter Care Teams Food Sampler Relationship Specialty Start Date End Date Rosamaria Jones MD [address] [employer] [place] [address] PCP - General Internal Medicine 10/06/18 11/27/[address] [address] PCP - General 11/28/23 Madelaine Mitchell DO law firm administrator 07/26/16 Francesco Merritt MD [address] [place] [address] Family Medicine - Sports Medicine 12/14/18 Rosamaria Jones MD [address] [place] [address] [place] [address] Assigned PCP 03/31/19 09/28/19 Loyda Farmer MD [address] [place] [address] Assigned PCP 09/29/19 10/26/19 Elaina Jiang APRN [employer] [address] [place] [address] Assigned PCP 10/27/19 04/03/21 Rosamaria Jones MD [address] [facility] [address] [place] [address] Assigned PCP 04/04/21 05/08/21 Gabe Carl MD [address] [place] [address] Assigned PCP 05/09/21 Danielle Alcantar MD [address] [place] [address] Assigned Musculoskeletal Provider 07/18/21 02/03/23 Madelaine Mitchell DO [address] [facility] [address] [place] [address] Assigned OBGYN Provider 03/09/24 documented as of this encounter
--- OUTSIDE RECORDS SUMMARY | 2024-04-23 08:43 | XMS_ITS | Clinical Summary ---
Author Organization [facility] Address [address] [place] [address] Care Team Providers Care Performance Solutions Specialist Name Role Phone Madelaine Mitchell DO Unavailable [phone] Francesco Merritt MD Unavailable [phone] Gabe Carl MD Unavailable [phone] [place] [address] Primary Care Provider Madelaine Mitchell DO Unavailable [phone] Allergies Active Allergy Reactions Criticality Noted Date [...] (ASTELIN) 0.1 % nasal sprayIndications :Post-nasal drip [place] 1 spray into both nostrils 2 times daily 1 Bottle 11 9 Active metFORMIN (GLUCOPHAGE-XR) 500 MG 24 hr tabletIndication s:PCOS (polycystic ovarian syndrome) TAKE 4 TABLETS BY MOUTH DAILY 360 tablet 1 9 Active nystatin (MYCOSTATIN) 069305 UNIT/ML suspension TAKE 6 ML BY MOUTH [...] (07/14/2021): Added automatically from request for surgery [id number] 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 Plan colp 04/25/18 [place] - no visible lesions, no bx. Plan pap due in 1 year pap from previous pap 03/13/19 Pap reminder [facility]. [facility] 03/14/19 TE states pt is 25 weeks (ASAD 06/27/19), no appts in chart. ([facility]) CCT tracking Headache 12/16/2016 PCOS (polycystic ovarian [...] Department Care Team Description 03/27/2024 MyC Refill [facility] [address] [place] [address] Madelaine Mitchell, DO Refill Request 03/12/2024 MyC Medical Advice [facility] [address] [place] [address] Madelaine Mitchell, Medication Request 03/12/2024 MyC Refill [facility] [address] [place] [address] Madelaine Mitchell, Refill Request 02/20/2024 MyC Medical Advice [facility] [address] [place] [address] Madelaine Mitchell, 02/20/2024 Orders Only [facility] [address] [place] [address] Melissa Lewis, CASTRO PCOS (polycystic ovarian syndrome) (Primary Dx); Pituitary adenoma (H); Carcinoma (H); Encounter for preconception consultation 02/20/2024 Telephone [facility] [place] [address], [place] [address] Melissa Lewis RN Clinic Care Coordination - Follow-up 02/08/2024 8:45 AM CDT Office Visit [facility] [address] [place] [address] Madelaine Mitchell DO Malignant neoplasm of lung, unspecified laterality, unspecified part of lung (H) (Primary Dx); Pituitary adenoma (H); Alcohol use disorder; History of benzodiazepine use 02/08/2024 Travel 01/30/2024 MyC Medical Advice [facility] [address] [facility] [address] [place] [address] Madelaine Mitchell DO from Last 3 Months [...] TYPES DNA CERVICAL Routine 03/28/2018 9:20 AM SENIOR RELATIONSHIP MANAGER PCOS (polycystic ovarian syndrome) PAP IMAGED THIN LAYER SCREEN Routine 03/28/2018 9:09 AM SENIOR RELATIONSHIP MANAGER Encounter for general adult medical examination with abnormal findings HIV ANTIGEN ANTIBODY COMBO Routine 05/05/2016 9:51 AM SENIOR RELATIONSHIP MANAGER test positive from Last 3 Months or Most Recently Relevant to Health Maintenance Results * (ABNORMAL) HPV High Risk Types DNA Cervical (03/28/2018 9:20 AM SENIOR RELATIONSHIP MANAGER) HPV Source [facility] 04/03/2018 7:38 AM SENIOR RELATIONSHIP MANAGER [facility] HPV 16 DNA Negative NEG^Nega tive 04/03/2018 4:18 PM SENIOR RELATIONSHIP MANAGER [facility] HPV 18 DNA Negative NEG^Nega tive 04/03/2018 4:18 PM SENIOR RELATIONSHIP MANAGER [facility] Other HR HPV Positive(A) NEG^Nega tive 04/03/2018 4:18 PM SENIOR RELATIONSHIP MANAGER [facility] Final Diagnosis This patient's sample is positive for other HR HPV DNA (types 31, 33, 35, 39, 45, 51, 52, 56, 58, 59, 66 or 68), not HPV 16 or HPV 18 DNA. This result requires clinical correlation with concurrent cytology findings. 04/03/2018 4:18 PM SENIOR RELATIONSHIP MANAGER [facility] Comment: This test was developed and its performance characteristics determined by the [facility]. It has not been [...] Specimen Description Cervical Cells 04/03/2018 7:38 AM SENIOR RELATIONSHIP MANAGER [facility] Comment:[id number] 03/28/2018 9:20 AM SENIOR RELATIONSHIP MANAGER 03/28/2018 2:56 PM SENIOR RELATIONSHIP MANAGER us Tristen Spann APRN COLLAR FOLDER OPERATOR LAB - BLOOD ORDERABL ES Final Result [facility] [address] [place] [address] * (ABNORMAL) Pap imaged thin layer screen reflex to HPV if ASCUS - recommend age 25 - 29 (03/28/2018 9:09 AM SENIOR RELATIONSHIP MANAGER) PAP ASC-US(A) JOSE JUAN Manzano Report Patient Name: MADI YANG MR#: [id number] Specimen #: [id number] Collected: 03/28/2018 Received: 03/29/2018 Reported: 04/02/2018 14:41 [...] Carmine Stevens M.D. Processed and screened at [facility] CLINICAL HISTORY: LMP: 03/05/2018 A previous normal pap Date of Last Pap: 01/01/2015, Papanicolaou Test Limitations: Cervical cytology is a screening test with limited sensitivity; regular screening is critical for cancer prevention; Pap tests are primarily effective for the diagnosis/preventi on of squamous cell carcinoma, not adenocarcinomas or other cancers. TESTING LAB LOCATION: [address] [address] COLLECTION SITE: Client: [facility] Location: JAVON MANZANO (R) Cytologic material (specimen) 03/28/2018 9:09 AM SENIOR RELATIONSHIP MANAGER 03/29/2018 11:25 AM SENIOR RELATIONSHIP MANAGER us Tristen Spann COMMUNITY SUPPORT WORKER COLLAR FOLDER OPERATOR LAB - [facility] SPECIMEN Final Result [facility] * HIV Antigen Antibody Combo (05/05/2016 9:51 AM SENIOR RELATIONSHIP MANAGER) HIV Antigen Antibody Combo Nonreactive HIV-1 p24 Ag & HIV-1/HIV-2 Ab Not Detected NR [facility] Blood specimen (specimen) 05/05/2016 9:51 AM SENIOR RELATIONSHIP MANAGER 05/05/2016 9:56 AM SENIOR RELATIONSHIP MANAGER us Madelaine Mitchell DO LAB - BLOOD ORDERABLES Fi nal Result [facility] [address] from Last 3 Months or Most Recently Relevant to Health Maintenance Insurance BCBS OUT OF FOR[facility]LY [facility] BCBS OUT OF STATE BCBS OUT OF STATE Care Teams Performance Solutions Specialist Relationship Specialty Start Date End Date [address] [address] PCP - General 11/28/23 Madelaine Mitchell DO director sterile processing 07/26/16 Francesco Merritt MD [address] [place] [address] Family Medicine - Sports Medicine 12/14/18 Gabe Carl MD [address] [place] [address] [place] [address] Assigned PCP 05/09/21 Madelaine Mitchell DO [facility] [address] [address] Assigned OBGYN Provider 03/09/24
--- OUTSIDE RECORDS SUMMARY | 2024-04-23 08:43 | XMS_ITS | Encounter Summary ---
Author Organization [facility] Address [address] [place] [address] Care Team Providers Care Chemical Machine Tender Name Role Phone Madelaine Mitchell DO Unavailable Rosamaria Jones MD Primary Care Provider Francesco Merritt MD Unavailable Loyda Farmer MD Unavailable CreElaina morales APRN [facility] Unavailable [phone] Rosamaria Jones MD Unavailable Gabe Carl MD Unavailable [phone] Danielle Alcantar MD Unavailable [phone] [facility] Primary Care Provider Madelaine Mitchell DO Unavailable Reason for Visit * Reason Comments Medication Refill Encounter Details Date Type Department Care Team (Late st Contact Info) Description 10/13/[address] [address] Madelaine Mitchell DO [address] [facility] [address] [place] [address] Medication Refill Social History Tobacco Use Types [...] Out COVID-19 03/31/2021 03/31/2021 03/31/2021 7:10 AM TRAVELING SALES REPRESENTATIVE Rule Out COVID-19 09/15/2022 09/15/2022 09/15/2022 9:15 AM CDT Assessment Noted Time PHQ-9 Depression Total Score: 10 019 7:03 AM CDT documented as of this encounter Care Teams Chemical Machine Tender Relationship Specialty Start Date End Date Rosamaria Jones MD [address] [facility] [address] [place] [address] PCP - General Internal Medicine 10/06/18 11/27/[address] [address] PCP - General 11/28/23 Madelaine Mitchell DO rn review 07/26/16 Francesco Merritt MD [id number] [place], [place] [address] Family Medicine - Sports Medicine 12/14/18 Loyda Farmer MD [address] [place], [place] [address] Assigned PCP 09/29/19 10/26/19 Elaina Jiang APRN CNP [address] [place], [place] [address] Assigned PCP 10/27/19 04/03/21 Rosamaria Jones MD [address] [facility] [address] [place], [place] [address] Assigned PCP 04/04/21 05/08/21 Gabe Carl MD [address] [facility] [place] [address] Assigned PCP 05/09/21 Danielle Alcantar MD [address] [place], [place] [address] Assigned Musculoskeletal Provider 07/18/21 02/03/23 Madelaine Mitchell DO [address] [facility] [address] [place], [place] [address] Assigned OBGYN Provider 03/09/24 documented as of this encounter
--- OUTSIDE RECORDS SUMMARY | 2024-04-23 08:43 | XMS_ITS | Encounter Summary ---
Author Organization [place] Address [address] [place] [address]. [place] [address] Care Team Providers Care Bilingual Case Manager Name Role Phone Madelaine Mitchell DO Unavailable Francesco Merritt MD Unavailable [phone] aGbe Carl MD Unavailable [phone] [place] [address] Primary Care Provider Madelaine Mitchell DO Unavailable Reason for Visit * Reason Onset Date Comments Refill Request 03/27/2024 Encounter Details Date Type Department Care Team (Late st Contact Info) Description 03/27/2024 [facility]'s [address] [place] [address] [place] [address] Madelaine Mitchell DO [address] [place] [address] Refill Request Social History Tobacco Use Types [...] to pt to confirm. Ruby Rubio RN COMPUTER SUPPORT SPECIALIST [place] AND STUD MACHINE OPERATOR documented in this encounter Plan of Treatment Not on file documented as of this encounter Visit Diagnoses Diagnosis Anovulation Female infertility associated with anovulation documented in this encounter Additional Health Concerns Assessment Noted Time PHQ-9 Depression Total Score: 21 023 10:16 AM CDT documented as of this encounter Care Teams Bilingual Case Manager Relationship Specialty Start Date End Date [facility], [address] [address] PCP - General 11/28/23 Madelaine Mitchell DO information technology internship 07/26/16 Francesco Merritt MD [facility] [address] [place] [address] Family Medicine - Sports Medicine 12/14/18 Gabe Carl MD [address] [place] [address] [place] [address] Assigned PCP 05/09/21 Madelaine Mitchell DO [address] [address] Assigned OBGYN Provider 03/09/24 documented as of this encounter
--- OUTSIDE RECORDS SUMMARY | 2024-04-23 08:43 | XMS_ITS | Encounter Summary ---
Author Organization [place] Address [address] [place] [address]. [place] [address] Care Team Providers Care Laboratory Chemist Name Role Phone Madelaine Mitchell DO Unavailable [phone] Rosamaria Jones MD Primary Care Provider [phone] Francesco Merritt MD Unavailable [phone] Gabe Carl MD Unavailable [phone] Danielle Alcantar MD Unavailable [phone] [facility] Primary Care Provider Madelaine Mitchell DO Unavailable [phone] Encounter Details Date Type Department Care Team (Late st Contact Info) Description 08/27/2021 [facility] Medical Advice [address] 5[address] [place] [address] Danielle Wright, PT [address] [address] Social History Tobacco Use Types [...] Depression Total Score: 10 022 9:03 AM ASSOCIATE AGENT INSURANCE SALES documented as of this encounter Care Teams Laboratory Chemist Relationship Specialty Start Date End Date Rosamaria Jones MD [address] [facility] 200 [place] [address] PCP - General Internal Medicine 10/06/18 11/27/[address] [address] PCP - General 11/28/23 Madelaine Mitchell DO felt hat flanging operator 07/26/16 Francesco Merritt MD [address] [place] [address] Family Medicine - Sports Medicine 12/14/18 Gabe Carl MD [address] [place] [address] [place] [address] Assigned PCP 05/09/21 Danielle Alcantar MD [address] [place] [id number] Assigned Musculoskeletal Provider 07/18/21 02/03/23 Madelaine Mitchell DO [address] [address] Assigned OBGYN Provider 03/09/24 documented as of this encounter
--- OUTSIDE RECORDS SUMMARY | 2024-04-23 08:43 | XMS_ITS | Encounter Summary ---
Author Organization [place] Address [address] [place] [address] Care Team Providers Care Effervescent Salts Compounder Name Role Phone Madelaine Mitchell DO Unavailable Rosamaria Jones MD Primary Care Provider [phone] Francesco Merritt MD Unavailable Elaina Jiang APRN [facility] Unavailable [phone] Rsoamaria Jones MD Unavailable Gbae Carl MD Unavailable [phone] Danielle Alcantar MD Unavailable [phone] [facility] Primary Care Provider Madelaine Mitchell DO Unavailable Encounter Details Date Type Department Care Team (Late st Contact Info) Description 03/14/2021 My[facility] Medical Advice [facility] Women's [facility] [address] [place] [address] Madelaine Mitchell DO [address] [place], [place] [address] Anovulation (Primary Dx) Social History Tobacco Use [...] the my chart message. Clif Catalan RN G FRAME GRINDER OPERATOR documented in this encounter Plan of Treatment Not on file documented as of this encounter Visit Diagnoses Diagnosis Anovulation- Primary Female infertility associated with anovulation documented in this encounter Additional Health Concerns Infection Onset Date Last Indicated Resolved Time Rule Out COVID-19 03/31/2021 03/31/2021 03/31/2021 7:10 AM SWING FRAME GRINDER OPERATOR Rule Out COVID-19 09/15/2022 09/15/2022 09/15/2022 9:15 AM CDT Assessment Noted Time PHQ-9 Depression Total Score: 10 019 7:03 AM CDT documented as of this encounter Care Teams Effervescent Salts Compounder Relationship Specialty Start Date End Date Rosamaria Jones MD [address] [facility] 200 [place] [address] PCP - General Internal Medicine 10/06/18 11/27/[address] [address] PCP - General 11/28/23 Madelaine Mitchell DO digital sales assistant 07/26/16 Francesco Merritt MD [address] [place], [place] [address] [place] [address] Family Medicine - Sports Medicine 12/14/18 Elaina Jiang APRN CNP [address] [place], [place] [address] Assigned PCP 10/27/19 04/03/21 Rosamaria Jones MD [address] [place], [place] [address]457 Assigned PCP 04/04/21 05/08/21 Gabe Carl MD [address] [facility] [address] [place] [id number] Assigned PCP 05/09/21 Danielle Alcantar MD [address] [place] [id number] Assigned Musculoskeletal Provider 07/18/21 02/03/23 Madelaine Mitchell DO [address] [facility] 100 [place], [place] [address] Assigned OBGYN Provider 03/09/24 documented as of this encounter
--- OUTSIDE RECORDS SUMMARY | 2024-04-23 08:43 | XMS_ITS | Encounter Summary ---
Author Organization [place] Address [address] [place] [address] Care Team Providers Care Grocery Deliverer Name Role Phone Madelaine Mitchell DO Unavailable Rosamaria Jones MD Primary Care Provider [phone] Francesco Merritt MD Unavailable [phone] Gabe Carl MD Unavailable [phone] Danielle Alcantar MD Unavailable [phone] [facility] Primary Care Provider Madelaine Mitchell DO Unavailable [phone] Reason for Referral * Infertility Artificial Insemination (Routine: Next available opening) - Closed Specialty Diagnoses / Procedures Referred By Darryl t Referred To Contact Diagnoses [place] [address] [place] [address] Phone: tel: fax: [facility] [address] [place] [address] Phone: tel: Referral ID Status Reason Start Date Expiration Date Visits Re quested Visits Authorized [id number] Closed 06/07/2021 06/07/2022 1 1 Question Answer [...] or coverage questions. [facility]: [phone] [facility] [phone] [facility]. ([facility]) [phone] Other (external) - Use Comments Please call to schedule your appointment NESS OFFICE ASSISTANT Encounter Details Date Type Department Care Team (Late st Contact Info) Description 06/03/2021 [facility] [address] [place] [address] Madelaine Mitchell DO [address] [place] [address] Anovulation (Primary Dx) Social History [...] Depression Total Score: 10 022 9:03 AM BUSINESS OFFICE ASSISTANT documented as of this encounter Care Teams Grocery Deliverer Relationship Specialty Start Date End Date Rosamaria Jones MD [address] [place] [address] PCP - General Internal Medicine 10/06/18 11/27/[address] [address] PCP - General 11/28/23 Madelaine Mitchell DO fibrous wallboard inspector 07/26/16 Francesco Merritt MD [address] [place] [address] Family Medicine - Sports Medicine 12/14/18 Gabe Carl MD [address] [place] [address] [place] [address] Assigned PCP 05/09/21 Danielle Alcantar MD 9[address] [place] [address] Assigned Musculoskeletal Provider 07/18/21 02/03/23 Madelaine Mitchell DO [address] [place] [address] Assigned OBGYN Provider 03/09/24 documented as of this encounter
--- OUTSIDE RECORDS SUMMARY | 2024-04-23 08:43 | XMS_ITS | Encounter Summary ---
Author Organization [place] Address [address] [place] [address]. [place] [address] Care Team Providers Care Commercial Makeup Artist Name Role Phone Madelaine Mitchell DO Unavailable [phone] Francesco Merritt MD Unavailable Gabe Carl MD Unavailable [phone] [place] [address] [facility] Primary Care Provider Madelaine Mitchell DO Unavailable [phone] Encounter Details Date Type Department Care Team (Late st Contact Info) Description 01/30/2024 MyC Medical Advice [facility] Women's [facility] [address] [place] [address] [place] [phone] Madelaine Mitchell DO [address] [place] [address] Social History Tobacco Use Types Packs/Day Years [...] to schedule next week. Marcella Arce RN [facility] * Telephone Encounter - Madelaine Mitchell DO - 01/31/2024 4:53 PM CDT Ok to add sooner, ok to double book. Usually works well to double book at physical slot .Dr. Madelaine Mitchell DO Obstetrics and Gynecology [facility] [place] * Telephone Encounter - Grisel Catalan RN [...] documented as of this encounter Care Teams Commercial Makeup Artist Relationship Specialty Start Date End Date [address] [address] PCP - General 11/28/23 Madelaine Mitchell DO director biomedical engineering 07/26/16 Francesco Merritt MD [facility] [address] [place], [place] [address] [place] [address] Family Medicine - Sports Medicine 12/14/18 Gabe Carl MD [address] [facility] VINICIUS MANNING [id number] Assigned PCP 05/09/21 Madelaine Mitchell DO [address] [place], [place] [address] Assigned OBGYN Provider 03/09/24 documented as of this encounter
--- OUTSIDE RECORDS SUMMARY | 2024-04-23 08:43 | XMS_ITS | Encounter Summary ---
Author Organization [place] Address [address] [place] [address] Care Team Providers Care Independent Living Instructor Name Role Phone Madelaine Mitchell DO Unavailable [phone] Rosamaria Jones MD Primary Care Provider [phone] Francesco Merritt MD Unavailable Loyda Farmer MD Unavailable [phone] CreElaina morales APRN [facility] Unavailable [phone] Rosamaria Jones MD Unavailable Gabe Carl MD Unavailable [phone] Danielle Alcantar MD Unavailable [facility] Primary Care Provider Madelaine Mitchell DO Unavailable [phone] Reason for Visit * Reason Comments Medication Refill Encounter Details Date Type Department Care Team (Late st Contact Info) Description 10/05/[address] [address] Madelaine Mitchell DO [address] [facility] 100 [place] [address] Medication Refill Social History Tobacco Use Types [...] RN - 10/22/2019 10:31 AM CDT Sent [facility] message to schedule appt. Queta Morales R.N. [...] Out COVID-19 03/31/2021 03/31/2021 03/31/2021 7:10 AM DEPARTMENT HEAD Rule Out COVID-19 09/15/2022 09/15/2022 09/15/2022 9:15 AM CDT Assessment Noted Time PHQ-9 Depression Total Score: 10 019 7:03 AM CDT documented as of this encounter Care Teams Independent Living Instructor Relationship Specialty Start Date End Date Rosamaria Jones MD [address] [facility] 200 [place] [address] PCP - General Internal Medicine 10/06/18 11/27/23 [facility], [address] [address] PCP - General 11/28/23 Madelaine Mitchell DO lumber piler operator 07/26/16 Francesco Merritt MD [address] [place] [address] Family Medicine - Sports Medicine 12/14/18 Loyda Farmer MD [address] [place], [place] [address] Assigned PCP 09/29/19 10/26/19 Elaina Jiang APRN DECORATION CHECKER [address] [place], [place] [address] Assigned PCP 10/27/19 04/03/21 Rosamaria Jones MD [address] [facility] 200 [place], [place] [address] Assigned PCP 04/04/21 05/08/21 Gabe Carl MD [address] [place] [address] Assigned PCP 05/09/21 Danielle Alcantar MD 909 [place] [address] Assigned Musculoskeletal Provider 07/18/21 02/03/23 Madelaine Mitchell DO [address] [facility] 100 [place] [address] Assigned OBGYN Provider 03/09/24 documented as of this encounter
--- OUTSIDE RECORDS SUMMARY | 2024-04-23 08:43 | XMS_ITS | Encounter Summary ---
Author Organization [place] Address [address] [place] [address]. [place] [address] Care Team Providers Care Block Saw Operator Name Role Phone Madelaine Mitchell DO Unavailable Rosamaria Jones MD Primary Care Provider [phone] Francesco Merritt MD Unavailable Gabe Carl MD Unavailable [phone] Danielle Alcantar MD Unavailable [facility] Primary Care Provider Madelaine Mitchell DO Unavailable [phone] Encounter Details Date Type Department Care Team (Late st Contact Info) Description 01/08/2023 MyC Medical Advice [facility] Clinic [address] [address] Francesco Merritt MD [address] [place] [address] [address] [place] [address] Social History Tobacco Use Types [...] documented as of this encounter Care Teams Block Saw Operator Relationship Specialty Start Date End Date Rosamaria Jones MD [address] [facility] 200 [place] [address] PCP - General Internal Medicine 10/06/18 11/27/[address] [address] PCP - General 11/28/23 Madelaine Mitchell DO rail car loader 07/26/16 Francesco Merritt MD [facility] [address] [address] Family Medicine - Sports Medicine 12/14/18 Gabe Carl MD [address] [facility] [place] [address] Assigned PCP 05/09/21 Danielle Alcantar MD 9[address] [place], [place] [address] Assigned Musculoskeletal Provider 07/18/21 02/03/23 Madelaine Mitchell DO [address] [address] Assigned OBGYN Provider 03/09/24 documented as of this encounter
--- OUTSIDE RECORDS SUMMARY | 2024-04-23 08:43 | XMS_ITS | Encounter Summary ---
Author Organization [place] Address [address] [place] [address]. [place] [address] Care Team Providers Care Gas Or Water Meter Installer Name Role Phone Madelaine Mitchell DO Unavailable [phone] Francesco Merritt MD Unavailable Gabe Carl MD Unavailable [phone] [place] [address] [facility] Primary Care Provider Madelaine Mitchell DO Unavailable Encounter Details Date Type Department Care Team (Late st Contact Info) Description 02/20/2024 MyC Medical Advice [facility] Women's [place] [address] [place] [phone] Madelaine Mitchell DO [address] [place] [address] Social History Tobacco Use Types Packs/Day Years [...] Please see mychart: Pt response CASTRO Baez RACT LEAD * Telephone Encounter - Marcella Arce RN - 02/22/2024 8:01 AM CST Please see mychart message: Pt response CASTRO Baez RACT LEAD * Telephone Encounter - Marcella Arce RN - 02/21/2024 11:00 AM CONTRACT LEAD Please mychart message: Pt response to questions. CASTRO Baez RACT LEAD * Telephone Encounter - Grisel Catalan RN - 02/20/2024 11:46 AM CONTRACT LEAD Please address the chart message. Last OV 02/08/24. Clif Catalan RN RACT LEAD documented in this encounter Plan of Treatment Not on file documented as of this encounter Visit Diagnoses Not on filedocumented in this encounter Additional Health Concerns Assessment Noted Time PHQ-9 Depression Total Score: 21 023 10:16 AM CDT documented as of this encounter Care Teams Gas Or Water Meter Installer Relationship Specialty Start Date End Date [facility], [address] [address] PCP - General 11/28/23 Madelaine Mitchell DO drop wire stringer 07/26/16 Francesco Merritt MD [address] [place] [address] Family Medicine - Sports Medicine 12/14/18 Gabe Carl MD [address] [facility] VINICIUS [place] [address] Assigned PCP 05/09/21 Madelaine Mitchell DO [address] [address] [place], [place] [address] Assigned OBGYN Provider 03/09/24 documented as of this encounter
--- OUTSIDE RECORDS SUMMARY | 2024-04-23 08:43 | XMS_ITS | Encounter Summary ---
Author Organization [place] Address [address] [place] [address] Care Team Providers Care Ruling Machine Feeder Name Role Phone Madelaine Mitchell DO Unavailable [phone] Rosamaria Jones MD Primary Care Provider Francesco Merritt MD Unavailable Elaina Jiang APRN [facility] Unavailable [phone] Rosamaria Jones MD Unavailable Gabe Carl MD Unavailable [phone] Danielle Alcantar MD Unavailable [facility] Primary Care Provider Madelaine Mitchell DO Unavailable Encounter Details Date Type Department Care Team (Late st Contact Info) Description 07/10/2020 MyC Medical Advice [facility] Women's [facility] [address] [place] [address] Madelaine Mitchell DO [address] [place], [place] [address] Social History Tobacco Use Types Packs/Day Years [...] Out COVID-19 03/31/2021 03/31/2021 03/31/2021 7:10 AM CASE ASSEMBLER Rule Out COVID-19 09/15/2022 09/15/2022 09/15/2022 9:15 AM CDT Assessment Noted Time PHQ-9 Depression Total Score: 10 019 7:03 AM CDT documented as of this encounter Care Teams Ruling Machine Feeder Relationship Specialty Start Date End Date Rosamaria Jones MD [address] [place] [address] PCP - General Internal Medicine 10/06/18 11/27/[address] [address] PCP - General 11/28/23 Madelaine Mitchell DO disk grinder 07/26/16 Francesco Merritt MD [address] [place], [place] [address] [place] [address] Family Medicine - Sports Medicine 12/14/18 Elaina Jiang APRN CNP [address] [place] [address] Assigned PCP 10/27/19 04/03/21 Rosamaria Jones MD [address] [place] [address] Assigned PCP 04/04/21 05/08/21 Gabe Carl MD [address] [facility] VINICIUS [place] [address] Assigned PCP 05/09/21 Danielle Alcantar MD 909 [place] [address] Assigned Musculoskeletal Provider 07/18/21 02/03/23 Madelaine Mitchell DO [address] [place] [address] Assigned OBGYN Provider 03/09/24 documented as of this encounter
--- OUTSIDE RECORDS SUMMARY | 2024-04-23 08:43 | XMS_ITS | Clinical Summary ---
Author Organization [facility] Address [address] [place] [address] Care Team Providers Care Deburring And Tooling Machine Operator Name Role Phone Rosamaria Jones MD Primary Care Provider [phone] Source Comments You are receiving this document as you are listed as the primary care provider,follow-up provider, or the patient has been referred to you for consultation.This is in compliance with the Medicare andLouis Stokes [facility] Va Medical Centercaid EHR Incentive Program,which states Providers who transition their patient to another setting of careor provider of care or refers their patient to another provider of care shouldprovide summary care record for each transition of care or referral. [facility] BiotechnologiesPres[facility] Kaseman HospitalRenew Fibre Allergies Active Allergy Reactions Criticality Noted Date [...] Comments Blood Pressure 123/75 06/15/2016 11:56 AM INSULATION PROFESSIONAL Pulse 104 06/15/2016 11:56 AM INSULATION PROFESSIONAL Temperature 36.7 C (98.1 F) 06/15/2016 11:56 AM INSULATION PROFESSIONAL Respiratory Rate 20 06/15/2016 11:56 AM INSULATION PROFESSIONAL Oxygen Saturation 98% 06/15/2016 11:56 AM INSULATION PROFESSIONAL Inhaled Oxygen Concentration - - Weight [...] age to complete this topic Care Teams Deburring And Tooling Machine Operator Relationship Specialty Start Date End Date Rosamaria Jones MD [address] [place], [place] [address] PCP - General 11/10/15
--- OUTSIDE RECORDS SUMMARY | 2024-04-23 08:43 | XMS_ITS | Encounter Summary ---
Author Organization [place] Address [address] [place] [address] Care Team Providers Care Sky Diver Name Role Phone Madelaine Mitchell DO Unavailable [phone] Rosamaria Jones MD Primary Care Provider Francesco Merritt MD Unavailable Loyda Farmer MD Unavailable [phone] CreElaina morales APRN [facility] Unavailable [phone] Rosamaria Jones MD Unavailable Gabe Carl MD Unavailable [phone] Danielle Alcantar MD Unavailable [phone] [facility] Primary Care Provider Madelaine Mitchell DO Unavailable Encounter Details Date Type Department Care Team (Late st Contact Info) Description 10/22/2019 [facility] Medical Advice [facility] [address] [place] [address] Queta Lisa, RN Social History [...] Out COVID-19 03/31/2021 03/31/2021 03/31/2021 7:10 AM TOOLMAKER Rule Out COVID-19 09/15/2022 09/15/2022 09/15/2022 9:15 AM CDT Assessment Noted Time PHQ-9 Depression Total Score: 10 019 7:03 AM CDT documented as of this encounter Care Teams Sky Diver Relationship Specialty Start Date End Date Rosamaria Jones MD [address] [place], [place] [address] PCP - General Internal Medicine 10/06/18 11/27/[address] [address] PCP - General 11/28/23 Madelaine Mitchell DO pump servicer helper 07/26/16 Francesco Merritt MD [address] [place] [address] Family Medicine - Sports Medicine 12/14/18 Loyda Farmer MD [address] [place], [place] [address] Assigned PCP 09/29/19 10/26/19 Elaina Jiang APRN CNP [address] [place] [address] Assigned PCP 10/27/19 04/03/21 Rosamaria Jones MD [address] [place], [place] [address] Assigned PCP 04/04/21 05/08/21 Gabe Carl MD [address]305 [facility] VINICIUS MANNING [address] Assigned PCP 05/09/21 Danielle Alcantar MD [address]09 [place], [place] [address] Assigned Musculoskeletal Provider 07/18/21 02/03/23 Madelaine Mitchell DO [address] [facility] 100 [place] [address] Assigned OBGYN Provider 03/09/24 documented as of this encounter
--- OUTSIDE RECORDS SUMMARY | 2024-04-23 08:43 | XMS_ITS | Encounter Summary ---
Author Organization [place] Address [address] [place] [address]. [place] [address] Care Team Providers Care Rice Drier Name Role Phone Madelaine Mitchell DO Unavailable [phone] Francesco Merritt MD Unavailable [phone] Gabe Carl MD Unavailable [phone] [place] [address] Primary Care Provider Madelaine Mitchell DO Unavailable [phone] Reason for Visit * Reason Onset Date Comments Medication Request 03/12/2024 Encounter Details Date Type Department Care Team (Late st Contact Info) Description 03/12/2024 MyC Medical Advice [facility] [address] [place] [address] Madelaine Mitchell DO [address] [facility] [address] [place] [address] Medication Request Social History Tobacco Use Types [...] up with her? Queta Morales RN BSN [place] director of digital technology SAFETY AUDITOR documented in this encounter Plan of Treatment Not on file documented as of this encounter Visit Diagnoses Diagnosis Anovulation- Primary Female infertility associated with anovulation documented in this encounter Additional Health Concerns Assessment Noted Time PHQ-9 Depression Total Score: 21 023 10:16 AM CDT documented as of this encounter Care Teams Rice Drier Relationship Specialty Start Date End Date [facility], [address] [address] PCP - General 11/28/23 Madelaine Mitchell DO water treatment plant repairer 07/26/16 Francesco Merritt MD [address] [place] [address] Family Medicine - Sports Medicine 12/14/18 Gabe Carl MD [address] [place] [address] [place] [address] Assigned PCP 05/09/21 Madelaine Mitchell DO [facility] [address] [address] Assigned OBGYN Provider 03/09/24 documented as of this encounter
--- OUTSIDE RECORDS SUMMARY | 2024-04-23 08:43 | XMS_ITS | Encounter Summary ---
Author Organization [place] Address [address] [place] [address] Care Team Providers Care Attending Radiologist Name Role Phone Madelaine Mitchell DO Unavailable Rosamaria Jones MD Primary Care Provider Francesco Merritt MD Unavailable [phone] Rosamaria Jones MD Unavailable SerumLoyda MD Unavailable CreElaina morales APRN [facility] Unavailable [phone] Rosamaria Jones MD Unavailable MeseretGabe jordan MD Unavailable [phone] Danielle Alcantar MD Unavailable [phone] [facility] Primary Care Provider Madelaine Mitchell DO Unavailable Encounter Details Date Type Department Care Team (Late st Contact Info) Description 06/28/[address] [facility] [id number] [place] [address], [address] [place] [address] Porsha Vargas, [...] COLP CERVIX/UPPER VAGINA Routine 04/25/2019 12:00 AM TECHNICAL DATA ANALYST documented in this encounter Results * COLP CERVIX/UPPER VAGINA (04/25/2019 12:00 AM TECHNICAL DATA ANALYST) us Patient Reported PROCEDURES Final Result documented in this encounter Visit Diagnoses Not on filedocumented in this encounter Additional Health Concerns Infection Onset Date Last Indicated Resolved Time Rule Out COVID-19 03/31/2021 03/31/2021 03/31/2021 7:10 AM TECHNICAL DATA ANALYST Rule Out COVID-19 09/15/2022 09/15/2022 09/15/2022 9:15 AM CDT Assessment Noted Time PHQ-9 Depression Total Score: 10 019 7:03 AM CDT documented as of this encounter Care Teams Attending Radiologist Relationship Specialty Start Date End Date Rosamaria Jones MD [address] [employer] [address] [place] [address] PCP - General Internal Medicine 10/06/18 11/27/[address] [address] PCP - General 11/28/23 Madelaine Mitchell DO sand mill grinder 07/26/16 Francesco Merritt MD [address] [place] [address] Family Medicine - Sports Medicine 12/14/18 Rosamaria Jones MD [address] [place] [address] [place] [address] Assigned PCP 03/31/19 09/28/19 Loyda Farmer MD [address] [place] [address] Assigned PCP 09/29/19 10/26/19 Elaina Jiang APRN CLOTH DESIZING RANGE OPERATOR CHIEF [address] [place] [address] Assigned PCP 10/27/19 04/03/21 Rosamaria Jones MD [address] [facility] 200 [place] [address] Assigned PCP 04/04/21 05/08/21 Gabe Carl MD [address] [facility] [place] [address] Assigned PCP 05/09/21 Danielle Alcantar MD 9 [place] [address] Assigned Musculoskeletal Provider 07/18/21 02/03/23 Madelaine Mitchell DO [address] [facility] 100 [place] [address] Assigned OBGYN Provider 03/09/24 documented as of this encounter
--- OUTSIDE RECORDS SUMMARY | 2024-04-23 08:43 | XMS_ITS | Encounter Summary ---
Author Organization [place] Address [address] [place] [address] Care Team Providers Care Money Manager Name Role Phone Madelaine Mitchell DO Unavailable Rosamaria Jones MD Primary Care Provider [phone] Francesco Merritt MD Unavailable Gabe Carl MD Unavailable [phone] Danielle Alcantar MD Unavailable [phone] [facility] Primary Care Provider Madelaine Mitchell DO Unavailable Encounter Details Date Type Department Care Team (Late st Contact Info) Description 07/11/2021 MyC Medical Advice [facility] [address] [place] [address] Madelaine Mitchell DO [address] [place] [address] Social History Tobacco Use Types [...] Depression Total Score: 10 022 9:03 AM RAILWAY YARD ASSISTANT documented as of this encounter Care Teams Money Manager Relationship Specialty Start Date End Date Rosamaria Jones MD [address] [facility] 200 [place] [address] PCP - General Internal Medicine 10/06/18 11/27/[address] [address] PCP - General 11/28/23 Madelaine Mitchell DO medical radiation tech 07/26/16 Francesco Merritt MD [address] [place] [address] Family Medicine - Sports Medicine 12/14/18 Gabe Carl MD [address] [place] [address] [place] [id number] Assigned PCP 05/09/21 Danielle Alcantar MD [address] [place] [address] Assigned Musculoskeletal Provider 07/18/21 02/03/23 Madelaine Mitchell DO [address] [address] Assigned OBGYN Provider 03/09/24 documented as of this encounter
--- OUTSIDE RECORDS SUMMARY | 2024-04-23 08:43 | XMS_ITS | Continuity of Care Document ---
Author Name [facility] User [email or web address] Address Unknown Organization Unknown Address Unknown Alerts, Allergies and Adverse Reactions FILTER APPLIED:All Known Active Allergies Substance Reaction Onset Status (SULFA DRUGS) Active Procedures FILTER APPLIED:Only known Procedures with Onset Date within the last 5 years Procedure Date Procedure Provider Additiona l Information Status D-DIMER,QUANTITATIVE (31079) Completed CBC W PLT NO DIFF (74609) Completed BASIC METABOLIC PANEL (27677) Completed MRI BRAIN STEM W/O W/DYE (44821) Completed METABOLIC PANEL TOTAL CA (78729) Completed COMPREHEN METABOLIC PANEL (26944) Completed CT THORAX DX C- (30846) Completed ASSAY THYROID STIM HORMONE (83475) Completed ANTINUCLEAR ANTIBODIES (JAYDEN) (31092) Completed EMERGENCY DEPT VISIT MOD MDM (67741) Completed COMPLETE CBC W/AUTO DIFF WBC (74806) Completed ASSAY OF LIPASE (42201) Completed HEPATIC FUNCTION PANEL (23018) Completed ECHO EXAM OF ABDOMEN (29752) Completed THER/PROPH/DIAG INJ SC/IM (02884) Completed METABOLIC PANEL TOTAL CA (43783) Completed TX/PRO/DX INJ NEW DRUG ADDON (04053) Completed ROUTINE VENIPUNCTURE (94171) Completed THER/PROPH/DIAG INJ IV PUSH (59709) Completed ROUTINE VENIPUNCTURE (50717) Completed EMERGENCY DEPT VISIT HI MDM (99729) Completed EMERGENCY DEPT VISIT MOD MDM (02043) Completed TX/PRO/DX INJ NEW DRUG ADDON (98045) Completed THER/PROPH/DIAG INJ IV PUSH (64352) Completed HYDRATE IV INFUSION ADD-ON (68837) Completed MEASURE BLOOD OXYGEN LEVEL (40494) Completed C-REACTIVE PROTEIN (29127) Completed COMPLETE CBC W/AUTO DIFF WBC (46935) Completed ASSAY OF LACTIC ACID (91323) Completed CT THORAX DX C- (52945) Completed CT ABD PELV W/CONTRAST (36897) Completed COMPREHEN METABOLIC PANEL (64787) Completed Encounters FILTER APPLIED:Only known Encounters with Admission Date within the last 5 years Encounter Location Admission Discharge Billing Code Heavy Equipment Sales Associate Shellie schulz Emergency Carly stovall Emergency Armando Zarco Outpatient Robb Boudreaux Outpatient Robb Boudreaux Outpatient Robb Boudreaux Outpatient [facility] Outpatient Robb Boudreaux Outpatient Veronika Souza Outpatient Veronika Souza Unknown [id number] MAGNO PACHECO Emergency [id number] WILLIAM EUCEDA Emergency [facility] Outpatient [facility]
--- OUTSIDE RECORDS SUMMARY | 2024-04-23 08:43 | XMS_ITS | Encounter Summary ---
Author Organization [place] Address [address] [place] [address] Care Team Providers Care Real Property Evaluator Name Role Phone Rosamaria Jones MD Primary Care Provider [phone] Madelaine Mitchell DO Unavailable [phone] Elaina Jiang APRN REHABILITATION PHYSICIAN Unavailable [phone] Ref-Primary, Physician Primary Care Provider Rosamaria Jones MD Primary Care Provider Francesco Merritt MD Unavailable Rosamaria Jones MD Unavailable Loyda Farmer MD Unavailable Elaina Jiang APRN REHABILITATION PHYSICIAN Unavailable [phone] Rosamaria Jones MD Unavailable Gabe Carl MD Unavailable [phone] Danielle Alcantar MD Unavailable [phone] [facility] Primary Care Provider Madelaine Mitchell DO Unavailable [phone] Encounter Details Date Type Department Care Team (Late st Contact Info) Description 07/15/2018 Tj Negro [facility] [address] [place] [address] Madelaine Mitchell DO [address] [place] [address] PCOS (polycystic ovarian syndrome) (Primary Dx) Social [...] Out COVID-19 03/31/2021 03/31/2021 03/31/2021 7:10 AM ASH CONVEYOR OPERATOR Rule Out COVID-19 09/15/2022 09/15/2022 09/15/2022 9:15 AM CDT Assessment Noted Time PHQ-9 Depression Total Score: 0 02/01/20 17 1:00 PM CDT documented as of this encounter Care Teams Real Property Evaluator Relationship Specialty Start Date End Date Rosamaria Jones MD [address] [place] [address] PCP - General Internal Medicine 09/12/14 07/24/18 No Ref-Primary, Physician PCP - General 07/25/18 10/05/18 Rosamaria Jones MD [address] [address] [place] [address] PCP - General Internal Medicine 10/06/18 11/27/[address] [address] PCP - General 11/28/23 Madelaine Mitchell DO [address] [place] [address] [place] [address] loft worker pile driving 07/26/16 Elaina Jiang APRN REHABILITATION PHYSICIAN [address] [place] [address] Assigned PCP 04/08/18 03/30/19 Francesco Merritt MD [address] [place] [address] Family Medicine - Sports Medicine 12/14/18 Rosamaria Jones MD [address] [address] Assigned PCP 03/31/19 09/28/19 Loyda Farmer MD [address] [place], [place] [address] Assigned PCP 09/29/19 10/26/19 Elaina Jiang APRN REHABILITATION PHYSICIAN [address] [place] [address] Assigned PCP 10/27/19 04/03/21 Rosamaria Jones MD [address] [address] Assigned PCP 04/04/21 05/08/21 Gabe Carl MD [address] [facility] [place] [address] Assigned PCP 05/09/21 Danielle Alcantar MD [address] [place], [place] 546[address] Assigned Musculoskeletal Provider 07/18/21 02/03/23 Madelaine Mitchell DO [address] [address] Assigned OBGYN Provider 03/09/24 documented as of this encounter
--- OUTSIDE RECORDS SUMMARY | 2024-04-23 08:43 | XMS_ITS | Encounter Summary ---
Author Organization [place] Address [address] [place] [address] Care Team Providers Care Cryptographic Machine Operator Name Role Phone Madelaine Mitchell DO Unavailable Francesco Merritt MD Unavailable [phone] Gabe Carl MD Unavailable [phone] [place] [address] Primary Care Provider Madelaine Mitchell DO Unavailable Reason for Visit * Reason Onset Date Comments Refill Request 03/12/2024 Encounter Details Date Type Department Care Team (Late st Contact Info) Description 03/12/2024 Tj Daniels [facility] [address] [place] [address] Madelaine Mitchell DO [address] [place] [address] Refill Request Social History Tobacco Use Types [...] documented as of this encounter Care Teams Cryptographic Machine Operator Relationship Specialty Start Date End Date [facility], [address] [address] PCP - General 11/28/23 Madelaine Mitchell DO technical training instructor 07/26/16 Francesco Merritt MD [address] [place] [address] Family Medicine - Sports Medicine 12/14/18 Gabe Carl MD [address] [facility] [place] [address] Assigned PCP 05/09/21 Madelaine Mitchell DO [address] [address] Assigned OBGYN Provider 03/09/24 documented as of this encounter
--- OUTSIDE RECORDS SUMMARY | 2024-04-23 08:43 | XMS_ITS | Encounter Summary ---
Author Organization [place] Address [address] [place] [address] Care Team Providers Care Digital Forensics Investigator Name Role Phone Rosamaria Jones MD Primary Care Provider Madelaine Mitchell DO Unavailable [phone] Jonas Cullen MD Unavailable [phone] Elaina Jiang APRN SUPERVISOR SHOP Unavailable [phone] CreElaina morales APRN SUPERVISOR SHOP Unavailable [phone] No Ref-Primary, Physician Primary Care Provider Rosamaria Jones MD Primary Care Provider [phone] Francesco Merritt MD Unavailable [phone] Rosamaria Jones MD Unavailable Loyda Farmer MD Unavailable Elaina Jiang APRN SUPERVISOR SHOP Unavailable [phone] Rosamaria Jones MD Unavailable Gabe Carl MD Unavailable [phone] Danielle lAcantar MD Unavailable [facility] Primary Care Provider Madelaine Mitchell DO Unavailable [phone] Reason for Visit * Reason Onset Date Comments Results 10/07/2016 hgb Encounter Details Date Type Department Care Team (Late st Contact Info) Description 10/07/2016 MyC Medical Advice [facility] [address] [place] [address] Madelaine Mitchell DO [address] [place] [address] Results (hgb) Social History Tobacco Use Types [...] Out COVID-19 03/31/2021 03/31/2021 03/31/2021 7:10 AM DECAY CONTROL OPERATOR Rule Out COVID-19 09/15/2022 09/15/2022 09/15/2022 9:15 AM CDT documented as of this encounter Care Teams Digital Forensics Investigator Relationship Specialty Start Date End Date Rosamaria Jones MD [address] [place] [address] PCP - General Internal Medicine 09/12/14 07/24/18 [place] [address] [place] [address] PCP - Assigned PCP 02/04/18 04/07/18 Elaina Jiang APRN SUPERVISOR SHOP [address] [place] [address] PCP - Assigned PCP 04/08/18 06/19/18 No Ref-Primary, Physician PCP - General 07/25/18 10/05/18 Rosamaria Jones MD [address] [address] PCP - General Internal Medicine 10/06/18 11/27/[address] [address] PCP - General 11/28/23 Madelaine Mitchell DO [address] [address] licensed loan officer assistant 07/26/16 Elaina iJang APRN SUPERVISOR SHOP [address] [place] [address] Assigned PCP 04/08/18 03/30/19 Francesco Merritt MD [address] [place] [address] Family Medicine - Sports Medicine 12/14/18 Rosamaria Jones MD [address] [facility] [address] [address] Assigned PCP 03/31/19 09/28/19 Loyda Farmer MD [address] [place], [place] [address] Assigned PCP 09/29/19 10/26/19 Elaina Jiang APRN SUPERVISOR SHOP [address] [place], [place] [address] Assigned PCP 10/27/19 04/03/21 Rosamaria Jones MD [address] [place], [place] [address] Assigned PCP 04/04/21 05/08/21 Gabe Carl MD [address] [facility] [place] [address] Assigned PCP 05/09/21 Danielle Alcantar MD [address] [place], [place] [address] Assigned Musculoskeletal Provider 07/18/21 02/03/23 Madelaine Mitchell DO [address] [facility] 100 [place] [address] Assigned OBGYN Provider 03/09/24 documented as of this encounter
--- OUTSIDE RECORDS SUMMARY | 2024-04-23 08:43 | XMS_ITS | Encounter Summary ---
Author Organization [place] Address [address] [place] [address] Care Team Providers Care Ice Cream Van Vendor Name Role Phone Madelaine Mitchell DO Unavailable Rosamaria Jones MD Primary Care Provider [phone] Francesco Merritt MD Unavailable Elaina Jiang APRN [facility] Unavailable [phone] Rosamaria Jones MD Unavailable Gabe Carl MD Unavailable [phone] Danielle Alcantar MD Unavailable [phone] [facility] Primary Care Provider Madelaine Mitchell DO Unavailable [...] COVID-19? No / Unsure 03/31/2021 6:25 AM NUTRITION EDUCATOR documented as of this encounter Plan of Treatment Not on file documented as of this encounter Visit Diagnoses Not on filedocumented in this encounter Additional Health Concerns Infection Onset Date Last Indicated Resolved Time Rule Out COVID-19 03/31/2021 03/31/2021 03/31/2021 7:10 AM NUTRITION EDUCATOR Rule Out COVID-19 09/15/2022 09/15/2022 09/15/2022 9:15 AM CDT Assessment Noted Time PHQ-9 Depression Total Score: 10 019 7:03 AM CDT documented as of this encounter Care Teams Ice Cream Van Vendor Relationship Specialty Start Date End Date Rosamaria Jones MD [address] [place] [address] PCP - General Internal Medicine 10/06/18 11/27/[address] [address] PCP - General 11/28/23 Madelaine Mitchell DO customer sales advisor 07/26/16 Francesco Merritt MD [address] [place] [address] Family Medicine - Sports Medicine 12/14/18 Elaina Jiang APRN CNP [address] [place], [place] [address] Assigned PCP 10/27/19 04/03/21 Rosamaria Jones MD [address] [place] [address] Assigned PCP 04/04/21 05/08/21 Gabe Carl MD [address] [facility] [address] [place] [id number] Assigned PCP 05/09/21 Danielle Alcantar MD 909 [place], [place] 4[address]85 Assigned Musculoskeletal Provider 07/18/21 02/03/23 Madelaine Mitchell DO [address] 3[address] Assigned OBGYN Provider 03/09/24 documented as of this encounter
--- OUTSIDE RECORDS SUMMARY | 2024-04-23 08:43 | XMS_ITS | Referral Summary ---
Author Organization [facility] Address [address] [place] [address] Care Team Providers Care Learning Disabilities Specialist Name Role Phone Madelaine Mitchell DO Unavailable Francesco Merritt MD Unavailable Gabe Carl MD Unavailable [phone] [place] [address] Primary Care Provider Madelaine Mitchell DO Unavailable Encounters Date Type Department Care Team Description 03/27/2024 MyC Refill [facility] [address] [place] [phone] Madelaine Mitchell, DO Refill Request 03/12/2024 MyC Medical Advice [facility] [address] [place] [phone] Madelaine Mitchell, DO Medication Request 03/12/2024 MyC Refill [facility] [address] [place] [phone] Madelaine Mitchell, Refill Request 02/20/2024 MyC Medical Advice [facility] [address] [place] [phone] Madelaine Mitchell DO 02/20/2024 Orders Only [facility] [address] [place] [address] Melissa Lewis RN PCOS (polycystic ovarian syndrome) (Primary Dx); Pituitary adenoma (H); Carcinoma (H); Encounter for preconception consultation 02/20/2024 Telephone [facility] [address] [place] [address] Melissa Lewis, CASTRO Clinic Care Coordination - Follow-up 02/08/2024 Travel 02/08/2024 8:45 AM CDT Office Visit [facility] [address] [place] [address] Madelaine Mitchell DO Malignant neoplasm of lung, unspecified laterality, unspecified part of lung (H) (Primary Dx); Pituitary adenoma (H); Alcohol use disorder; History of benzodiazepine use 01/30/2024 MyC Medical Advice [facility] [address] [place] [address] Madelaine Mitchell DO from Last 3 Months [...] (ASTELIN) 0.1 % nasal sprayIndications :Post-nasal drip [place] 1 spray into both nostrils 2 times daily 1 Bottle 11 9 Active metFORMIN (GLUCOPHAGE-XR) 500 MG 24 hr tabletIndication s:PCOS (polycystic ovarian syndrome) TAKE 4 TABLETS BY MOUTH DAILY 360 tablet 1 9 Active nystatin (MYCOSTATIN) 598025 UNIT/ML suspension TAKE 6 ML BY MOUTH [...] (07/14/2021): Added automatically from request for surgery [id number] 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 Plan colp 04/25/18 Withams - no visible lesions, no bx. Plan pap due in 1 year pap from previous pap 03/13/19 Pap reminder letter sent. ([facility]) 03/14/19 TE states pt is 25 weeks (ASAD 06/27/19), no appts in chart. ([facility]) CCT tracking Headache 12/16/2016 PCOS (polycystic [...] TYPES DNA CERVICAL Routine 03/28/2018 9:20 AM LIGHT ADJUSTER PCOS (polycystic ovarian syndrome) PAP IMAGED THIN LAYER SCREEN Routine 03/28/2018 9:09 AM LIGHT ADJUSTER Encounter for general adult medical examination with abnormal findings HIV ANTIGEN ANTIBODY COMBO Routine 05/05/2016 9:51 AM LIGHT ADJUSTER test positive from Last 3 Months or Most Recently Relevant to Health Maintenance Results * (ABNORMAL) HPV High Risk Types DNA Cervical (03/28/2018 9:20 AM LIGHT ADJUSTER) HPV Source [facility] 04/03/2018 7:[address] [facility] HPV 16 DNA Negative NEG^Nega tive 04/03/2018 4:[address] [facility] HPV 18 DNA Negative NEG^Nega tive 04/03/2018 4:[address] [facility] Other HR HPV Positive(A) NEG^Nega tive 04/03/2018 4:[address] [facility] Final Diagnosis This patient's sample is positive for other HR HPV DNA (types 31, 33, 35, 39, 45, 51, 52, 56, 58, 59, 66 or 68), not HPV 16 or HPV 18 DNA. This result requires clinical correlation with concurrent cytology findings. 04/03/2018 4:[address] [facility] Comment: This test was developed and its performance characteristics determined by the [facility], Molecular Diagnostics Laboratory. It has not been [...] Specimen Description Cervical Cells 04/03/2018 7:[address] [facility] Comment:[id number] 03/28/2018 9:20 AM LIGHT ADJUSTER 03/28/2018 2:56 PM LIGHT ADJUSTER us Tristen Spann APRN TECHNICAL OPERATIONS SPECIALIST LAB - BLOOD ORDERABL ES Final Result [facility] [address] [place] [address] * (ABNORMAL) Pap imaged thin layer screen reflex to HPV if ASCUS - recommend age 25 - 29 (03/28/2018 9:09 AM LIGHT ADJUSTER) PAP ASC-US(A) JOSE JUAN Manzano Report Patient Name: MADI YANG MR#: [id number] Specimen #: [id number] Collected: 03/28/2018 Received: 03/29/2018 Reported: 04/02/2018 14:41 [...] Carmine Stevens M.D. Processed and screened at [facility], [facility] CLINICAL HISTORY: LMP: 03/05/2018 A previous normal pap Date of Last Pap: 01/01/2015, Papanicolaou Test Limitations: Cervical cytology is a screening test with limited sensitivity; regular screening is critical for cancer prevention; Pap tests are primarily effective for the diagnosis/preventi on of squamous cell carcinoma, not adenocarcinomas or other cancers. TESTING LAB LOCATION: [address] [address] COLLECTION SITE: Client: [facility] Location: JAVON MANZANO (R) Cytologic material (specimen) 03/28/2018 9:09 AM LIGHT ADJUSTER 03/29/2018 11:25 AM LIGHT ADJUSTER us Tristen Spann MANUFACTURING AREA MANAGER TECHNICAL OPERATIONS SPECIALIST LAB - [facility] L SPECIMEN Final Result [facility] * HIV Antigen Antibody Combo (05/05/2016 9:51 AM LIGHT ADJUSTER) HIV Antigen Antibody Combo Nonreactive HIV-1 p24 Ag & HIV-1/HIV-2 Ab Not Detected NR [facility] Blood specimen (specimen) 05/05/2016 9:51 AM LIGHT ADJUSTER 05/05/2016 9:56 AM LIGHT ADJUSTER us Madelaine Mitchell DO LAB - BLOOD ORDERABLES Fi nal Result [facility] [address] from Last 3 Months or Most Recently Relevant to Health Maintenance Insurance BCBS OUT OF [facility] BCBS OUT OF STATE BCBS OUT OF STATE Care Teams Learning Disabilities Specialist Relationship Specialty Start Date End Date [address] [address] PCP - General 11/28/23 Madelaine Mitchell DO coal bagger 07/26/16 Francesco Merritt MD [address] [place] [address] Family Medicine - Sports Medicine 12/14/18 Gabe Cral MD [address] [place] [address] [place] [address] Assigned PCP 05/09/21 Madelaine Mitchell DO [facility] [address] [address] Assigned OBGYN Provider 03/09/24
== END 2024-04-23 09:00 | disposition home or self-care (01) ==
LOC: ED 08:40
PROVIDERS: Emergency Provider Family Medicine; PCP Family Medicine
DX: R53.81 Other malaise (principal)
CPT/HCPCS: 93005; 99283

== ENCOUNTER 2024-05-23 10:27 | Emergency (ER) | payer BC, SELFPAY ==
--- OUTSIDE RECORDS SUMMARY | 2024-05-23 10:30 | XMS_ITS | Encounter Summary ---
Author Organization [facility] Address [address] [place] [address] Care Team Providers Care Pressure Tank Operator Name Role Phone Madelaine Mitchell DO Unavailable Rosamaria Jones MD Primary Care Provider UnavailFrancesco Andrea MD Unavailable Elaina Jiang APRN [facility] Unavailable [phone] Rosamaria Jones MD Unavailable Unavailable Gabe Carl MD Unavailable [phone] Danielle Alcantar MD Unavailable [phone] [facility] Primary Care Provider Madelaine Mitchell DO Unavailable Encounter Details Date Type Department Care Team (Late st Contact Info) Description 07/10/2020 MyC Medical Advice [facility] Women's [facility] [address] [place] [phone] Madelaine Mitchell DO [address] [place] [address] Social History Tobacco Use Types [...] Out COVID-19 03/31/2021 03/31/2021 03/31/2021 7:10 AM SAMPLE PASTER Rule Out COVID-19 09/15/2022 09/15/2022 09/15/2022 9:15 AM CDT Rule Out COVID-19 04/24/2024 04/24/2024 04/24/2024 6:06 AM SAMPLE PASTER Assessment Noted Time PHQ-9 Depression Total Score: 10 019 7:03 AM CDT documented as of this encounter Care Teams Pressure Tank Operator Relationship Specialty Start Date End Date Rosamaria Jones MD PCP - General Internal Medicine 10/06/18 11/27/[address] [address] PCP - General 11/28/23 Madelaine Mitchell DO transit operations supervisor 07/26/16 Francesco Merritt MD [address] [place] [address] Family Medicine - Sports Medicine 12/14/18 Elaina Jiang APRN CNP [facility] [address] [place], [place] 406567 Assigned PCP 10/27/19 04/03/21 Rosamaria Jones MD INACTIVE IN [place] 03/16/2024 Assigned PCP 04/04/21 05/08/21 Gabe Carl MD [address] [place] [address] Assigned PCP 05/09/21 Danielle Alcantar MD [address] [place], [place] 7115[address] Assigned Musculoskeletal Provider 07/18/21 02/03/23 Madelaine Mitchell DO [address] [facility] [address] [place], [place] [address] Assigned OBGYN Provider 03/09/24 documented as of this encounter
--- OUTSIDE RECORDS SUMMARY | 2024-05-23 10:30 | XMS_ITS | Clinical Summary ---
Author Organization [facility] Address [address] [place] [address] Care Team Providers Care Supervisor Housecleaner Name Role Phone Rosamaria Jones MD Primary Care Provider [phone] Source Comments You are receiving this document as you are listed as the primary care provider,follow-up provider, or the patient has been referred to you for consultation.This is in compliance with the Medicare andTogus Va Medical Centercaid EHR Incentive Program,which states Providers who transition their patient to another setting of careor provider of care or refers their patient to another provider of care shouldprovide summary care record for each transition of care or referral. [facility], [facility] Allergies Active Allergy Reactions Criticality Noted Date [...] Comments Blood Pressure 123/75 06/15/2016 11:56 AM ASSEMBLY INSPECTOR Pulse 104 06/15/2016 11:56 AM ASSEMBLY INSPECTOR Temperature 36.7 C (98.1 F) 06/15/2016 11:56 AM ASSEMBLY INSPECTOR Respiratory Rate 20 06/15/2016 11:56 AM ASSEMBLY INSPECTOR Oxygen Saturation 98% 06/15/2016 11:56 AM ASSEMBLY INSPECTOR Inhaled Oxygen Concentration - - Weight 86.2 [...] age to complete this topic Care Teams Supervisor Housecleaner Relationship Specialty Start Date End Date Rosamaria Jones MD [address] [place], [place] [address]207 PCP - General 11/10/15
--- OUTSIDE RECORDS SUMMARY | 2024-05-23 10:31 | XMS_ITS | Encounter Summary ---
Author Organization [facility] Address [address] [place] [address] Care Team Providers Care Tool Hardener Name Role Phone Madelaine Mitchell DO Unavailable [phone] Rosamaria Jones MD Primary Care Provider Unavailabl e Francesco Merritt MD Unavailable [phone] Gabe Carl MD Unavailable [phone] Danielle Alcantar MD Unavailable [phone] [facility] Primary Care Provider Madelaine Mitchell DO Unavailable [phone] Encounter Details Date Type Department Care Team (Late st Contact Info) Description 07/11/2021 MyC Medical Advice [facility] Women's [facility] [address] [place] [address] Madelaine Mitchell DO [address] [place] [address] Social History Tobacco Use Types Packs/Day Years [...] Out COVID-19 04/24/2024 04/24/2024 04/24/2024 6:06 AM WASH TUB MACHINE OPERATOR Assessment Noted Time PHQ-9 Depression Total Score: 10 022 9:03 AM WASH TUB MACHINE OPERATOR documented as of this encounter Care Teams Tool Hardener Relationship Specialty Start Date End Date Rosamaria Jones MD PCP - General Internal Medicine 10/06/18 11/27/[address] [address] PCP - General 11/28/23 Madelaine Mitchell DO sample tester grinder 07/26/16 Francesco Merritt MD [address] [place] [address] 627334 Family Medicine - Sports Medicine 12/14/18 Gabe Carl MD [address] [place] [address] [place] [address] Assigned PCP 05/09/21 Danielle Alcantar MD [address] [place] [address] [id number] Assigned Musculoskeletal Provider 07/18/21 02/03/23 Madelaine Mitchell DO [address] 889627 Assigned OBGYN Provider 03/09/24 documented as of this encounter
--- OUTSIDE RECORDS SUMMARY | 2024-05-23 10:31 | XMS_ITS | Encounter Summary ---
Author Organization [facility] Address [address] [place] [address] Care Team Providers Care Business Leader Name Role Phone Madelaine Mitchell DO Unavailable [phone] Rosamaria Jones MD Primary Care Provider Unavaillulu e Francesco Merritt MD Unavailable Loyda Farmer MD Unavailable CreElaina morales APRN [facility] Unavailable [phone] Rosamaria Jones MD Unavailable Unavailable Gabe Carl MD Unavailable [phone] Danielle Alcantar MD Unavailable [facility] Primary Care Provider Madelaine Mitchell DO Unavailable Reason for Visit * Reason Comments Medication Refill Encounter Details Date Type Department Care Team (Late st Contact Info) Description 10/05/[address] [address] Madelaine Mitchell DO [address] [facility] [address] [place] [address] Medication Refill Social History Tobacco Use Types [...] RN - 10/22/2019 10:31 AM CDT Sent [facility] message to schedule appt. Queta Morales [...] Out COVID-19 03/31/2021 03/31/2021 03/31/2021 7:10 AM MEDICAL SERVICES ASSISTANT Rule Out COVID-19 09/15/2022 09/15/2022 09/15/2022 9:15 AM CDT Rule Out COVID-19 04/24/2024 04/24/2024 04/24/2024 6:06 AM MEDICAL SERVICES ASSISTANT Assessment Noted Time PHQ-9 Depression Total Score: 10 019 7:03 AM CDT documented as of this encounter Care Teams Business Leader Relationship Specialty Start Date End Date Rosamaria Jones MD PCP - General Internal Medicine 6/22/19 8/12/24 [facility], [address] [address] PCP - General 11/28/23 Madelaine Mitchell DO automatic lump making machine tender 07/26/16 Francesco Merritt MD [facility] [address] [address] Family Medicine - Sports Medicine 12/14/18 Loyda Farmer MD [address] [place], [place] [address] Assigned PCP 09/29/19 10/26/19 Elaina Jiang APRN [facility] [address] [place] [address] Assigned PCP 10/27/19 04/03/21 Rosamaria Jones MD INACTIVE IN [place] 03/16/2024 Assigned PCP 04/04/21 05/08/21 Gabe Carl MD [address] [facility] [place] [address] Assigned PCP 05/09/21 Danielle Alcantar MD [address] [place], [place] [address] Assigned Musculoskeletal Provider 07/18/21 02/03/23 Madelaine Mitchell DO [address] [address] Assigned OBGYN Provider 03/09/24 documented as of this encounter
--- OUTSIDE RECORDS SUMMARY | 2024-05-23 10:31 | XMS_ITS | Encounter Summary ---
Author Organization [facility] Address [address] [place] [address]. [place] [address] Care Team Providers Care Theater Teacher Name Role Phone Madelaine Mitchell DO Unavailable [phone] Francesco Merritt MD Unavailable Gabe Carl MD Unavailable [phone] [place] [address] [facility] Primary Care Provider Madelaine Mitchell DO Unavailable Encounter Details Date Type Department Care Team (Late st Contact Info) Description 01/30/2024 MyC Medical Advice [facility] Women's [facility] [address] [place] [phone] Madelaine Mitchell DO [address] [place] [address] Social History Tobacco Use Types Packs/Day Years [...] to schedule next week. Marcella Arce RN [facility] * Telephone Encounter - Madelaine Mitchell DO - 01/31/2024 4:53 PM CDT Ok to add sooner, ok to double book. Usually works well to double book at physical slot .Dr. Madelaine Mitchell DO Obstetrics and Gynecology [facility] [place] [facility] [place] * Telephone Encounter - Grisel Catalan RN - 01/31/2024 8:30 AM CDT Please address the my chart message. Re: appedith Catalan RN documented in this encounter Plan of Treatment Not on file documented as of this encounter Visit Diagnoses Not on filedocumented in this encounter Additional Health Concerns Infection Onset Date Last Indicated Resolved Time Rule Out COVID-19 04/24/2024 04/24/2024 04/24/2024 6:06 AM DRIER AND GRINDER TENDER Assessment Noted Time PHQ-9 Depression Total Score: 21 023 10:16 AM CDT documented as of this encounter Care Teams Theater Teacher Relationship Specialty Start Date End Date [facility], [address] [address] PCP - General 11/28/23 Madelaine Mitchell DO cisco administrator 07/26/16 Francesco Merritt MD [address] [place] [address] Family Medicine - Sports Medicine 12/14/18 Gabe Carl MD [address] [facility] [place] [address] Assigned PCP 05/09/21 Madelaine Mitchell DO [address] [place] [address] Assigned OBGYN Provider 03/09/24 documented as of this encounter
--- OUTSIDE RECORDS SUMMARY | 2024-05-23 10:31 | XMS_ITS | Encounter Summary ---
Author Organization [facility] Address [address] [place] [address] Care Team Providers Care Chisel Worker Name Role Phone Madelaine Mitchell DO Unavailable [phone] Rosamaria Jones MD Primary Care Provider Unavaillulu e Francesco Merritt MD Unavailable Rosamaria Jones MD Unavailable Unavailable Serum, Loyda Escobedo MD Unavailable CreaganElaina APRN [facility] Unavailable [phone] Rosamaria Jones MD Unavailable Unavailable Gabe Carl MD Unavailable [phone] Danielle Alcantar MD Unavailable [phone] [facility] Primary Care Provider Madelaine Mitchell DO Unavailable [phone] Encounter Details Date Type Department Care Team (Late st Contact Info) Description 06/28/2019 Orders Only [facility] [place] [address] [facility], [address] [place] [address] Porsha [...] COLP CERVIX/UPPER VAGINA Routine 04/25/2018 12:00 AM POSTDOCTORAL FELLOW documented in this encounter Results * COLP CERVIX/UPPER VAGINA (04/25/2018 12:00 AM POSTDOCTORAL FELLOW) us Patient Reported PROCEDURES Final Result documented in this encounter Visit Diagnoses Not on filedocumented in this encounter Additional Health Concerns Infection Onset Date Last Indicated Resolved Time Rule Out COVID-19 03/31/2021 03/31/2021 03/31/2021 7:10 AM POSTDOCTORAL FELLOW Rule Out COVID-19 09/15/2022 09/15/2022 09/15/2022 9:15 AM CDT Rule Out COVID-19 04/24/2024 04/24/2024 04/24/2024 6:06 AM POSTDOCTORAL FELLOW Assessment Noted Time PHQ-9 Depression Total Score: 10 019 7:03 AM CDT documented as of this encounter Care Teams Chisel Worker Relationship Specialty Start Date End Date Rosamaria Jones MD PCP - General Internal Medicine 10/06/18 11/27/[address] [address] PCP - General 11/28/23 Madelaine Mitchell DO sprinkler irrigation equipment mechanic 07/26/16 Francesco Merritt MD [facility] [address] [address] Family Medicine - Sports Medicine 12/14/18 Rosamaria Jones MD INACTIVE IN [place] 03/16/2024 Assigned PCP 03/31/19 09/28/19 Loyda Farmer MD [address] [place] [address] Assigned PCP 09/29/19 10/26/19 Elaina Jiang APRN CNP [address] [place] [address] Assigned PCP 10/27/19 04/03/21 Rosamaria Jones MD INACTIVE IN [place] 03/16/2024 Assigned PCP 04/04/21 05/08/21 Gabe Carl MD [address] [facility] [place] [address] Assigned PCP 05/09/21 Danielle Alcantar MD [address] [place] [address] Assigned Musculoskeletal Provider 07/18/21 02/03/23 Madelaine Mitchell DO [address] [address] Assigned OBGYN Provider 03/09/24 documented as of this encounter
--- OUTSIDE RECORDS SUMMARY | 2024-05-23 10:31 | XMS_ITS | Encounter Summary ---
Author Organization [facility] Address [address] [place] [address] Care Team Providers Care Resource Director Name Role Phone Rosamaria Jones MD Primary Care Provider UnavailMadelaine Mac DO Unavailable [phone] CreElaina morales APRN [employer] Unavailable [phone] No Ref-Primary, Physician Primary Care Provider Rosamaria Jones MD Primary Care Provider UnavailFrancesco Andrea MD Unavailable [phone] Rosamaria Jones MD Unavailable Unavailable SerumLoyda MD Unavailable [phone] Elaina Jiang APRN [employer] Unavailable [phone] Rosamaria Jones MD Unavailable Unavailable Gabe Carl MD Unavailable [phone] Danielle Alcantar MD Unavailable [phone] [facility] Primary Care Provider Madelaine Mitchell DO Unavailable [phone] Encounter Details Date Type Department Care Team (Late st Contact Info) Description 07/15/2018 [facility] [address] [place] [address] Madelaine Mitchell DO [address] [facility] [address] [place] [address] PCOS (polycystic ovarian syndrome) (Primary Dx) Social [...] Out COVID-19 03/31/2021 03/31/2021 03/31/2021 7:10 AM RN TEACHER Rule Out COVID-19 09/15/2022 09/15/2022 09/15/2022 9:15 AM CDT Rule Out COVID-19 04/24/2024 04/24/2024 04/24/2024 6:06 AM RN TEACHER Assessment Noted Time PHQ-9 Depression Total Score: 0 02/01/20 17 1:00 PM CDT documented as of this encounter Care Teams Resource Director Relationship Specialty Start Date End Date Rosmaaria Jones MD PCP - General Internal Medicine 09/12/14 07/24/18 No Ref-Primary, Physician PCP - General 07/25/18 10/05/18 Rosamaria Jones MD PCP - General Internal Medicine 10/06/18 11/27/23 [place] [address] PCP - General 11/28/23 Madelaine Mitchell DO senior controls analyst 07/26/16 Elaina Jiang APRN [employer] [address] [place] [address] Assigned PCP 04/08/18 03/30/19 Francesco Merritt MD [address] [address] Family Medicine - Sports Medicine 12/14/18 Rosamaria Jones MD INACTIVE IN [place] 03/16/2024 Assigned PCP 03/31/19 09/28/19 Loyda Farmer MD [address] [place] [id number] Assigned PCP 09/29/19 10/26/19 Elaina Jiang APRN COMPANY [employer] [address] [place] [address] Assigned PCP 10/27/19 04/03/21 Rosamaria Jones MD INACTIVE IN [place] 03/16/2024 Assigned PCP 04/04/21 05/08/21 Gabe Carl MD [address] [facility] [address] [place] [id number] Assigned PCP 05/09/21 Danielle Alcantar MD [address] [place], [place] 5738[address] Assigned Musculoskeletal Provider 07/18/21 02/03/23 Madelaine Mitchell DO [address] [address] Assigned OBGYN Provider 03/09/24 documented as of this encounter
--- OUTSIDE RECORDS SUMMARY | 2024-05-23 10:31 | XMS_ITS | Encounter Summary ---
Author Organization [facility] Address [address] [place] [address]. [place] [address] Care Team Providers Care Lastex Thread Winder Name Role Phone Madelaine Mitchell DO Unavailable [phone] Francesco Merritt MD Unavailable [phone] Gabe Carl MD Unavailable [phone] [place] [address] Primary Care Provider Madelaine Mitchell DO Unavailable [phone] Reason for Visit * Reason Onset Date Comments Medication Request 03/12/2024 Encounter Details Date Type Department Care Team (Late st Contact Info) Description 03/12/2024 MyC Medical Advice [facility] [address] [place] [address] Madelaine Mitchell DO [address] [facility] [address] [place] [address] Medication Request Social History Tobacco Use Types [...] a follow up with her? 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 Assessment Noted Time PHQ-9 Depression Total Score: 21 023 10:16 AM CDT documented as of this encounter Care Teams Lastex Thread Winder Relationship Specialty Start Date End Date [address] [address] PCP - General 11/28/23 Madelaine Mitchell DO collection systems technician 07/26/16 Francesco Merritt MD [facility] [address] [facility] [address] [place] [address] Family Medicine - Sports Medicine 12/14/18 Gabe Carl MD [address] [facility] [place] [address] Assigned PCP 05/09/21 Madelaine Mitchell DO [address] [address] Assigned OBGYN Provider 03/09/24 documented as of this encounter
--- OUTSIDE RECORDS SUMMARY | 2024-05-23 10:31 | XMS_ITS | Encounter Summary ---
Author Organization [facility] Address [address] [place] [address] Care Team Providers Care Nonprofit Director Name Role Phone Madelaine Mitchell DO Unavailable Rosamaria Jones MD Primary Care Provider UnavailFrancesco Andrea MD Unavailable Elaina Jiang APRN [facility] Unavailable [phone] Rosamaria Jones MD Unavailable Unavailable Gabe Carl MD Unavailable [phone] Danielle Alcantar MD Unavailable [facility] Primary Care Provider Madelaine [...] COVID-19? No / Unsure 03/31/2021 6:25 AM DRY CHARGE PROCESS ATTENDANT documented as of this encounter Plan of Treatment Not on file documented as of this encounter Visit Diagnoses Not on filedocumented in this encounter Additional Health Concerns Infection Onset Date Last Indicated Resolved Time Rule Out COVID-19 03/31/2021 03/31/2021 03/31/2021 7:10 AM DRY CHARGE PROCESS ATTENDANT Rule Out COVID-19 09/15/2022 09/15/2022 09/15/2022 9:15 AM CDT Rule Out COVID-19 04/24/2024 04/24/2024 04/24/2024 6:06 AM DRY CHARGE PROCESS ATTENDANT Assessment Noted Time PHQ-9 Depression Total Score: 10 019 7:03 AM CDT documented as of this encounter Care Teams Nonprofit Director Relationship Specialty Start Date End Date Rosamaria Jones MD PCP - General Internal Medicine 10/06/18 11/27/[address] [address] PCP - General 11/28/23 Madelaine Mitchell DO storehouse clerk 07/26/16 Francesco Merritt MD [facility] [id number] Family Medicine - Sports Medicine 12/14/18 Elaina Jiang APRN TIN POT OPERATOR [address] [place], [place] [id number] Assigned PCP 10/27/19 04/03/21 Rosamaria Jones MD INACTIVE IN [place] 03/16/2024 Assigned PCP 04/04/21 05/08/21 [place] [address] [place] [address] [place] [address] Assigned PCP 05/09/21 Danielle Alcantar MD [address] [place] [address] Assigned Musculoskeletal Provider 07/18/21 02/03/23 Madelaine Mitchell DO [facility] [address] [address] Assigned OBGYN Provider 03/09/24 documented as of this encounter
--- OUTSIDE RECORDS SUMMARY | 2024-05-23 10:31 | XMS_ITS | Encounter Summary ---
Author Organization [facility] Address [address] [place] [address] Care Team Providers Care Feeder Catcher Tobacco Name Role Phone Madelaine Mitchell DO Unavailable Rosamaria Jones MD Primary Care Provider UnavailFrancesco Andrea MD Unavailable Loyda Farmer MD Unavailable CreElaina morales APRN MEASURER MACHINE Unavailable [phone] Rosamaria Jones MD Unavailable Unavailable Gabe Carl MD Unavailable [phone] Danielle Alcantar MD Unavailable [phone] [facility], [facility] Primary Care Provider Madelaine Mitchell DO Unavailable [phone] Encounter Details Date Type Department Care Team (Late st Contact Info) Description 10/22/2019 MyC Medical Advice [facility] [address] [place] [address] Queta Lisa, RN Social History [...] Out COVID-19 03/31/2021 03/31/2021 03/31/2021 7:10 AM MATRIX SUPERVISOR Rule Out COVID-19 09/15/2022 09/15/2022 09/15/2022 9:15 AM CDT Rule Out COVID-19 04/24/2024 04/24/2024 04/24/2024 6:06 AM MATRIX SUPERVISOR Assessment Noted Time PHQ-9 Depression Total Score: 10 019 7:03 AM CDT documented as of this encounter Care Teams Feeder Catcher Tobacco Relationship Specialty Start Date End Date Rosamaria oJnes MD PCP - General Internal Medicine 10/06/18 11/27/[address] [address] PCP - General 11/28/23 Madelaine Mitchell DO compressor service technician 07/26/16 Francesco Merritt MD [id number] [place] [address] Family Medicine - Sports Medicine 12/14/18 Loyda Farmer MD [address] [place], [place] [id number] Assigned PCP 09/29/19 10/26/19 Elaina Jiang APRN CNP [address] [place] [address] Assigned PCP 10/27/19 04/03/21 Rosamaria Jones MD INACTIVE IN [place] 03/16/2024 Assigned PCP 04/04/21 05/08/21 Gabe Carl MD [address] [facility] [place] [address] Assigned PCP 05/09/21 Danielle Alcantar MD [address] [place] [address] Assigned Musculoskeletal Provider 07/18/21 02/03/23 Madelaine Mitchell DO [address] [facility] [address] [place] [address] Assigned OBGYN Provider 03/09/24 documented as of this encounter
--- OUTSIDE RECORDS SUMMARY | 2024-05-23 10:31 | XMS_ITS | Clinical Summary ---
Author Organization [employer] [facility] Address [place], [place] [address] Care Team Providers Care Timber Rider Name Role Phone Pedro Boudreaux MD Primary Care Provider [phone] Leana Syed RN, BSN Unavailable [phone] Ceferino Catalan MD Unavailable [phone] Allergies Active Allergy Reactions Criticality Noted Date Comments Polymyxin B Sulf-Trimethoprim Edema 2017 Swelling in eye Sulfa (Sulfonamide Antibiotics) Edema 12/2005 Medications * This document contains information received from the source organization and may not represent a complete record from that organization. albuterol HFA (PRO-AIR; VENTOLIN; PROVENTIL) 90 mcg/actuation inhaler Inhale 2 Puffs by mouth every 4 hours if needed. 3 Active medication order composer collagen Active cholecalciferol, vitamin D3, (VITAMIN D3 ORAL) Take 1 Tablet by mouth once daily. Active LORazepam (ATIVAN) 0.5 mg tab Take 0.5 mg by mouth 2 times daily if needed for Anxiety. Active fluticasone (50 mcg per actuation) nasal solution (FLONASE) Inhale 1 [place] to both nostrils once daily if needed for Rhinitis. 3 Active vitamins-folic acid 1 mg ( RX) tablet Take 1 Tablet by mouth once daily. Active metFORMIN (GLUCOPHAGE) 500 mg tablet Take 1,000 mg by mouth two times daily with meals. Active zolpidem (AMBIEN) 5 mg tablet Take 5 mg by mouth at bedtime if needed for Sleep. Active methocarbamoL (ROBAXIN) 500 mg tabletIndications :Carcinoid tumor of right lung Take 1 Tablet (500 mg) by mouth four times daily. 28 Tablet 06/21/2023 9:11 AM TOOL CRIB ATTENDANT 4 Active hydrOXYzine pamoate (VISTARIL) 50 mg capsuleIndication s:Carcinoid tumor of right lung Take 1 Capsule (50 mg) by mouth every 8 hours if needed for Itching or Anxiety. 21 Capsule 06/21/2023 9:11 AM TOOL CRIB ATTENDANT 4 Active oxyCODONE (ROXICODONE) 5 mg immediate release tabletIndications :Carcinoid tumor of right lung Take 1-2 Tablets (5-10 mg) by mouth every 4 hours if needed for Pain (moderate - severe). 20 Tablet 06/21/2023 9:11 AM TOOL CRIB ATTENDANT 4 Active sennosides-docusa te (SENOKOT S) (8.6-50 mg) tabletIndications :Carcinoid tumor of right lung Take 1-4 Tablets by mouth two times daily. 60 Tablet 06/21/2023 9:11 AM TOOL CRIB ATTENDANT 4 Active diazePAM (VALIUM) 5 mg tabletIndications :Alcohol withdrawal syndrome without complication (HC) Take 1-2 Tablets (5-10 mg) by mouth every 6 hours if needed for Withdrawal Symptoms. 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 Plan colp 04/25/18 [place] - no visible lesions, no bx. Plan pap due in 1 year pap from previous pap 03/13/19 [facility] 03/14[facility]19 states pt is 25 weeks (ASAD 06/27/19), no appts in chart. ([facility]) CCT tracking PCOS (polycystic ovarian syndrome) 04/26/2017 Pre-diabetes 04/07/2008 Irregular menses 03/21/2008 Exercise-induced asthma Resolved Problems Problem Noted Date Diagnosed Date Resolved Date Corneal ulcer, unspecified 08/25/2006 0 04/18/2008 FEVER 04/26/2017 Encounters Date Type Department Care Team Description 05/22/2024 5:05 PM TOOL CRIB ATTENDANT - 05/22/2024 7:42 PM TOOL CRIB ATTENDANT Emergency [facility] [address] [place] [address] Geovanni Calixto MD Discharge Disposition: Against Medical Advice or Discontinued Care 05/22/2024 Travel 04/28/2024 Nurse Triage [facility] [address] [place] [address] Pcp, No Headache 04/27/2024 12:11 PM TOOL CRIB ATTENDANT - 04/27/2024 3:18 PM TOOL CRIB ATTENDANT Emergency [facility] [address] [place] [id number] Airam Amaya MD Vomiting, unspecified vomiting type, unspecified whether nausea present (Primary Dx); Alcohol withdrawal syndrome without complication (HC) Discharge Disposition: Home Self Care 04/27/2024 Travel from Last 3 Months Immunizations Name [...] or yelled at (see row info)? No 05/22/2024 Interpersonal Safety Abuse 12 - 18 Not on file 05/22/2024 Interpersonal Safety Ambulatory Vulnerability No t on file 05/22/2024 Comments No Sex and Gender Information Value Date Recorded Sex Assigned at Not on file Legal Sex Female 5:26 AM TOOL CRIB ATTENDANT Gender Identity Not on file Sexual Orientation [...] Sign Reading Time Taken Comments Blood Pressure 134/88 05/22/2024 7:00 PM TOOL CRIB ATTENDANT Pulse 95 05/22/2024 7:00 PM TOOL CRIB ATTENDANT Temperature 37.1 C (98.7 F) 05/22/2024 5:24 PM TOOL CRIB ATTENDANT Respiratory Rate 16 05/22/2024 5:24 PM TOOL CRIB ATTENDANT Oxygen Saturation 94% 05/22/2024 7:00 PM TOOL CRIB ATTENDANT Inhaled Oxygen Concentration - - Weight 88.9 kg (196 lb) 05/22/2024 5:24 PM TOOL CRIB ATTENDANT Height 165.1 cm (5' 5) 05/22/2024 5:24 PM TOOL CRIB ATTENDANT Body Mass Index 32.62 05/22/2024 5:24 PM TOOL CRIB ATTENDANT Plan of Treatment Upcoming Encounters Date Type Department Care Team (Late st Contact Info) Description 06/20/2024 7:30 AM TOOL CRIB ATTENDANT Appointment [facility] [address] [place] [address] 06/20/2024 8:00 AM TOOL CRIB ATTENDANT Office Visit [facility] [address] [place] [address] Ceferino Catalan MD [address] [place] [address] Health Maintenance Due Date Last Done Comments Tetanus booster 03/12/2018 03/12/2008, 07/10/2002 Pap test for age 21-65 08/21/2023 , 08/20/2020, 08/19/2019, Additional history exists COVID-19 vaccine series (2023- season) 2023 Influenza for age 9-49 12/17/2023 [...] Procedure Name Priority Date/Time Associated Diagnosis Comments CT HEAD BRAIN WO STAT 05/22/2024 6:18 PM TOOL CRIB ATTENDANT CBC WITH AUTO DIFFERENTIAL STAT 05/22/2024 5:48 PM TOOL CRIB ATTENDANT ,SERUM QUALITATIVE STAT 05/22/2024 5:48 PM TOOL CRIB ATTENDANT COMP METABOLIC PANEL STAT 05/22/2024 5:48 PM TOOL CRIB ATTENDANT CBC WITH AUTO DIFFERENTIAL STAT 05/22/2024 5:48 PM TOOL CRIB ATTENDANT CBC W PLT NO DIFF STAT 04/27/2024 2:3 9 PM TOOL CRIB ATTENDANT EKG 12 LEAD STAT 04/27/2024 1:56 PM TOOL CRIB ATTENDANT COMP METABOLIC PANEL PATTI 04/27/2024 1:54 PM TOOL CRIB ATTENDANT TROPONIN T (HS) ONE TIME STAT 04/27/2024 1:54 PM TOOL CRIB ATTENDANT ETHANOL SERUM OR PLASMA STAT 04/27/2024 1:54 PM TOOL CRIB ATTENDANT PROTIME-INR STAT 04/27/2024 1:54 PM TOOL CRIB ATTENDANT URINALYSIS MICROSCOPIC STAT 04/27/2024 11:05 AM TOOL CRIB ATTENDANT COVID/FLU/RSV PANEL Today 04/27/2024 1 1:05 AM TOOL CRIB ATTENDANT UA W/ SEDIMENT EXAM REFLEXED PER CRITERIA STAT 04/27/2024 11:05 AM TOOL CRIB ATTENDANT STORAGE BATTERY INSPECTOR THIN PREP PAP SCREEN IMAGED Routine 08/20/2020 1:00 PM CDT ANTI HIV 1/2 Routine 11/12/2010 11:20 AM CDT Screen for STD (sexually transmitted disease) ANTI HCV Routine 11/12/2010 11:20 AM CDT Screen for STD (sexually transmitted disease) from Last 3 Months or Most Recently Relevant to Health Maintenance Results * CT HEAD BRAIN WO (05/22/2024 6:18 PM TOOL CRIB ATTENDANT) Anatomical Region Laterality Modality HEAD, BRAIN Computed Tomogra phy 05/22/2024 6:40 PM TOOL CRIB ATTENDANT Impressions 05/22/2024 6:40 PM TOOL CRIB ATTENDANT 1. No acute intracranial abnormality. 2. Previously described pituitary lesion is not well seen on this examination. Please note that all CT scans at this facility use dose modulation, iterative reconstruction, and/or weight-based dosing when appropriate to reduce radiation dose to as low as reasonably achievable. Dictated by Remberto Young MD @ 05/22/2024 6:40:42 PM (Electronically Signed) Narrative 05/22/2024 6:40 PM TOOL CRIB ATTENDANT For Patients: As a result of the Century Cures Act, medical imaging exams and procedure reports are released immediately into your electronic medical record. You may view this report before your referring provider. If you have questions, please contact your health care provider. INDICATION: Headache, increasing frequency or severity TECHNIQUE: CT of the head was performed without IV contrast. COMPARISON: 10/12/2006. Report 08/01/2023. FINDINGS: Parenchyma: No acute hemorrhage, infarction, or mass. Ventricles and extra-axial spaces: Appropriate for age. Visualized paranasal sinuses: Clear. Mastoid air cells: Clear. Bones: No focal abnormality. Additional comment: None. Procedure Note Surya Young MD - 05/22/2024 For Patients: As a result of the Cures Act, medical imagingexams and procedure reports are released immediately into your electronicmedical record. You may view this report before your referring provider.If you have questions, please contact your health care provider. INDICATION: Headache, increasing frequency or severity TECHNIQUE: CT of the head was performed without IV contrast. COMPARISON: 10/12/2006. Report 08/01/2023. FINDINGS: Parenchyma: No acute hemorrhage, infarction, or mass. Ventricles and extra-axial spaces: Appropriate for age. Visualized paranasal sinuses: Clear. Mastoid air cells: Clear. Bones: No focal abnormality. Additional comment: None. IMPRESSION: 1. No acute intracranial abnormality. 2. Previously described pituitary lesion is not well seen on thisexamination. Please note that all CT scans at this facility use dose modulation,iterative reconstruction, and/or weight-based dosing when appropriate toreduce radiation dose to as low as reasonably achievable. Dictated by Remberto Young MD @ 05/22/2024 6:40:42 PM (Electronically Signed) Geovanni Calixto MD CT Final Result * (ABNORMAL) CBC WITH AUTO DIFFERENTIAL (05/22/2024 5:48 PM [facility] WHITE BLOOD COUNT 9.2 4.5 - 11.0 thou/cu mm 05/22/2024 6:02 PM [facility] RED BLOOD COUNT 4.90 4.00 - 5.20 mil/cu mm 05/22/2024 6:02 PM [facility] HEMOGLOBIN 14.5 12.0 - 16.0 g/dL 05/22/2024 6:02 PM [facility] HEMATOCRIT 46.1 33.0 - 51.0 % 05/22/2024 6:02 PM [facility] MCV 94 80 - 100 fL 05/22/2024 6:02 PM [facility] MCH 29.6 26.0 - 34.0 pg 05/22/2024 6:02 PM [facility] MCHC 31.5(L) 32.0 - 36.0 g/dL 05/22/2024 6:02 PM [facility] RDW 13.5 11.5 - 15.5 % 05/22/2024 6:02 PM [facility] PLATELET COUNT 307 140 - 440 thou/cu mm 05/22/2024 6:02 PM [facility] MPV 9.7 6.5 - 11.0 fL 05/22/2024 6:02 PM [facility] % NEUT 63.5 % 05/22/2024 6:02 PM [facility] % LYMPH 31.9 % 05/22/2024 6:02 PM [facility] % MONO 3.7 % 05/22/2024 6:02 PM [facility] % EOS 0.5 % 05/22/2024 6:02 PM [facility] % BASO 0.4 % 05/22/2024 6:02 PM [facility] ABSOLUTE NEUTROPHILS 5.9 1.7 - 7.0 thou/cu mm 05/22/2024 6:02 PM [facility] ABSOLUTE LYMPHOCYTES 2.9 0.9 - 2.9 thou/cu mm 05/22/2024 6:02 PM [facility] ABSOLUTE MONOCYTES 0.3 <0.9 thou/cu mm 05/22/2024 6:02 PM [facility] ABSOLUTE EOSINOPHILS 0.1 <0.5 thou/cu mm 05/22/2024 6:02 PM [facility] ABSOLUTE BASOPHILS 0.0 <0.3 thou/cu mm 05/22/2024 6:02 PM [facility] Blood BLOOD SPECIMEN / Unknown IV Start / Unknown 05/22/2024 5:48 PM TOOL CRIB ATTENDANT 05/22/2024 5:52 PM TOOL CRIB ATTENDANT Geovanni Calixto MD HEMATOLOGY Final Result Performing Organization Address City/[facility]/ZIP Co de Phone Number [facility] [address] [place] [address] * ,SERUM QUALITATIVE (05/22/2024 5:48 PM TOOL CRIB ATTENDANT) [facility] ,SERU M Negative Negative 05/22/2024 6:09 PM [facility] Blood BLOOD SPECIMEN / Unknown IV Start / Unknown 05/22/2024 5:48 PM TOOL CRIB ATTENDANT 05/22/2024 5:52 PM TOOL CRIB ATTENDANT Geovanni Calixto MD CHEMISTRY Final Result Performing Organization Address City/[facility]/ZIP Co de Phone Number [facility] [address] [place] [address] * (ABNORMAL) COMP METABOLIC PANEL (05/22/2024 5:48 PM TOOL CRIB ATTENDANT) Only the most recent of2 resultswithin the time period is included. Pathologist [facility] SODIUM 147(H) 136 - 145 mmol/L 05/22/2024 6:44 PM [facility] POTASSIUM 4.2 3.5 - 5.1 mmol/L 05/22/2024 6:44 PM [facility] CHLORIDE 104 98 - 107 mmol/L 05/22/2024 6:44 PM [facility] CO2,TOTAL 25 22 - 29 mmol/L 05/22/2024 6:44 PM [facility] ANION GAP 18 5 - 18 05/22/2024 6:44 PM [facility] GLUCOSE 119(H) 70 - 99 mg/dL 05/22/2024 6:44 PM [facility] CALCIUM 9.5 8.8 - 10.4 mg/dL 05/22/2024 6:44 PM [facility] Comment: Reference ranges for this test were updated on 02/20/2024 to reflect our healthy population more accurately. Reference range changes are not retroactively applied to results, but previous results using the same methodology can be interpreted in the context of the new reference range. BUN 10 6 - 20 mg/dL 05/22/2024 6:44 PM [facility] CREATININE 0.66 0.50 - 0.90 mg/dL 05/22/2024 6:44 PM [facility] BUN/CREAT RATIO 15 10 - 20 6:44 PM [facility] eGFR >90 >90 mL/min/1. 73m2 05/22/2024 6:44 PM [facility] Comment:As of 2021, eG FR is calculated by the CKD-EPI creatinine equation without race adjustment. eGFR can be influenced by muscle mass, exercise, and diet. The reported eGFR is an estimation only and is only applicable if the renal function is stable. ALBUMIN 5.0(H) 4.0 - 4.9 g/dL 05/22/2024 6:44 PM [facility] PROTEIN,TOTAL 8.1(H) 6.0 - 8.0 g/dL 05/22/2024 6:44 PM [facility] BILIRUBIN,TOTAL 0.2 0.0 - 1.2 mg/dL 05/22/2024 6:44 PM [facility] ALK PHOSPHATASE 63 35 - 104 IU/L 05/22/2024 6:44 PM TOOL CRIB ATTENDANT [facility] ALT (SGPT) 28 10 - 35 IU/L 05/22/2024 6:44 PM TOOL CRIB ATTENDANT [facility] AST (SGOT) 26 10 - 35 IU/L 05/22/2024 6:44 PM TOOL CRIB ATTENDANT [facility] Blood BLOOD SPECIMEN / Unknown IV Start / Unknown 05/22/2024 5:48 PM TOOL CRIB ATTENDANT 05/22/2024 5:52 PM TOOL CRIB ATTENDANT Geovanni Calixto MD CHEMISTRY Final Result [facility] [address] [place] [address] * CBC W PLT NO DIFF (04/27/2024 2:39 PM TOOL CRIB ATTENDANT) WHITE BLOOD COUNT 9.4 4.5 - 11.0 thou/cu mm 04/27/2024 2:45 PM [facility] RED BLOOD COUNT 4.08 4.00 - 5.20 mil/cu mm 04/27/2024 2:45 PM [facility] HEMOGLOBIN 12.8 12.0 - 16.0 g/dL 04/27/2024 2:45 PM [facility] HEMATOCRIT 38.4 33.0 - 51.0 % 04/27/2024 2:45 PM [facility] MCV 94 80 - 100 fL 04/27/2024 2:45 PM TOOL CRIB ATTENDANT [facility] MCH 31.4 26.0 - 34.0 pg 04/27/2024 2:45 PM [facility] MCHC 33.3 32.0 - 36.0 g/dL 04/27/2024 2:45 PM [facility] RDW 13.4 11.5 - 15.5 % 04/27/2024 2:45 PM [facility] PLATELET COUNT 235 140 - 440 thou/cu mm 04/27/2024 2:45 PM [facility] MPV 9.2 6.5 - 11.0 fL 04/27/2024 2:45 PM [facility] NRBC 0.0 % 04/27/2024 2:45 PM TOOL CRIB ATTENDANT [facility] ABS NRBC 0.0 thou /cu mm 04/27/2024 2:45 PM TOOL CRIB ATTENDANT [facility] Blood BLOOD SPECIMEN / Unknown Non-Lab Venipuncture / Unknown 04/27/2024 2:39 PM TOOL CRIB ATTENDANT 04/27/2024 2:43 PM TOOL CRIB ATTENDANT us Airam Amaya MD HEMATOLOGY Fi nal Result Performing Organization Address City/[facility]/ZIP Co de Phone Number [address] [place] [address] * EKG 12 LEAD (04/27/2024 1:56 PM TOOL CRIB ATTENDANT) Interpretation Normal sinus rhythm Normal ECG BEYOND NOW Ventricular Rate 99 BPM BEYOND NOW Atrial Rate 99 BPM BEYOND NOW P-R Interval 148 ms BEYOND NOW QRS Duration 80 ms BEYOND NOW QT 348 ms BEYOND NOW QTc 446 ms BEYOND NOW P Commack 50 degrees BEYOND NOW R Commack 24 degrees BEYOND NOW T Commack 9 degrees BEYOND NOW 04/27/2024 1:56 PM TOOL CRIB ATTENDANT 04/30/2024 9:40 AM TOOL CRIB ATTENDANT us Airam Amaya MD EKG ORD Fi nal Result Performing Organization Address City/[facility] Co de Phone Number [place] NOW [place], [place] * TROPONIN T (HS) ONE TIME (04/27/2024 1:54 PM TOOL CRIB ATTENDANT) TROPONIN T HS <6 6-10 ng/L ng/L 04/27/2024 2:25 PM TOOL CRIB ATTENDANT [facility] Blood BLOOD SPECIMEN / Unknown IV Start / Unknown 04/27/2024 1:54 PM TOOL CRIB ATTENDANT 04/27/2024 2:06 PM TOOL CRIB ATTENDANT Narrative [facility] - 04/27/2024 2:25 PM TOOL CRIB ATTENDANT hs-cTnT (Elecsys Troponin T Gen 5) concentration [...] low risk in emergency department patient population. Airam Amaya MD CHEMISTRY Fi nal Result Performing Organization Address [facility] [place] [address] * ETHANOL SERUM OR PLASMA (04/27/2024 1:54 PM TOOL CRIB ATTENDANT) ETHANOL <0.010 <0.010 g/dL 04/27/2024 2:25 PM TOOL CRIB ATTENDANT [facility] Blood BLOOD SPECIMEN / Unknown IV Start / Unknown 04/27/2024 1:54 PM TOOL CRIB ATTENDANT 04/27/2024 2:06 PM TOOL CRIB ATTENDANT Airam Amaya MD CHEMISTRY Fi nal Result Performing Organization Address [facility] [place] [address] * PROTIME-INR (04/27/2024 1:54 PM TOOL CRIB ATTENDANT) INR 1.0 <1.3 04/27/2024 2:30 PM TOOL CRIB ATTENDANT [facility] PROTIME 10.9 10.6 - 12.4 sec 04/27/2024 2:30 PM TOOL CRIB ATTENDANT [facility] Blood BLOOD SPECIMEN / Unknown IV Start / Unknown 04/27/2024 1:54 PM TOOL CRIB ATTENDANT 04/27/2024 2:06 PM TOOL CRIB ATTENDANT Narrative [facility] - 04/27/2024 2:30 PM TOOL CRIB ATTENDANT Therapeutic Range 2.0-3.0 for most anticoagulated patients 2.5-3.5 or 4.0 for high risk patients The INR is only used for patients on stable oral anticoagulant therapy. It makes no significant contribution to the diagnosis or treatment of patients whose Protime is prolonged for other reasons. INR results are increased when heparin levels exceed 1.0 U/mL, which corresponds to an aPTT >125 seconds if the patient is on UFH. Airam Amaya MD HEMATOLOGY Fi nal Result [address] [place] [address] * COVID/FLU/RSV PANEL (04/27/2024 11:05 AM TOOL CRIB ATTENDANT) Pathologist [facility] COVID 19 [place] MOLECULAR Negative Negative 04/27/2024 11:49 AM [facility] Comment:All PCR tests are bauman bject to false negative result due to variability in viral load and collection technique. A negative result does not rule out a SARS-CoV-2 infection. Clinical correlation required. INFLUENZA A PCR Negative 11:49 AM TOOL CRIB ATTENDANT [facility] INFLUENZA B PCR Negative 11:49 AM TOOL CRIB ATTENDANT [facility] Respiratory Syncytial Virus Negative 04/27/2024 11:49 AM TOOL CRIB ATTENDANT [facility] Swab NASOPHARYNGEAL SWAB / Unknown Non-Blood / Unknown 04/27/2024 11:05 AM TOOL CRIB ATTENDANT 04/27/2024 11:09 AM TOOL CRIB ATTENDANT [facility] Ed Triage MICROBIOLOGY Final Result Performing Organization Address [facility] Co de Phone Number [address] [address] * URINALYSIS MICROSCOPIC (04/27/2024 11:05 AM TOOL CRIB ATTENDANT) RBC None Seen 0-2, None Seen /HPF 04/27/2024 11:24 AM [facility] WBC 3-5 0-2, 3-5, None Seen /HPF 04/27/2024 11:24 AM [facility] BACTERIA Rare None Seen, Rare, Few Bacteria/H PF 04/27/2024 11:24 AM [facility] EPITHELIAL CELLS Few None Seen, Few Epi/HPF 04/27/2024 11:24 AM [facility] Urine URINE SPECIMEN / Unknown Non-Blood / Unknown 04/27/2024 11:05 AM TOOL CRIB ATTENDANT 04/27/2024 11:09 AM TOOL CRIB ATTENDANT [facility] Ed Triage URINE Final Result Performing Organization Address [facility] de Phone Number [address] [address] * (ABNORMAL) UA W/ SEDIMENT EXAM REFLEXED PER CRITERIA (04/27/2024 11:05 AM TOOL CRIB ATTENDANT) COLOR Yellow Yellow Color 04/27/2024 11:13 AM [facility] CLARITY Clear Clear Clarity 04/27/2024 11:13 AM [facility] SPECIFIC GRAVITY,URINE <=1.005(A) 1.010, 1.015, 1.020, 1.025 04/27/2024 11:13 AM [facility] PH,URINE 7.0 6.0, 7.0, 8.0, 5.5, 6.5, 7.5, 8.5 04/27/2024 11:13 AM [facility] UROBILINOGEN, QUALITATIVE Normal Normal EU/dl 04/27/2024 11:13 AM [facility] PROTEIN, URINE Negative Negative mg/dL 04/27/2024 11:13 AM TOOL CRIB ATTENDANT [facility] GLUCOSE, URINE Negative Negative mg/dL 04/27/2024 11:13 AM TOOL CRIB ATTENDANT [facility] KETONES,URINE Negative Negative mg/dL 04/27/2024 11:13 AM TOOL CRIB ATTENDANT [facility] BILIRUBIN,URI NE Negative Negative 04/27/2024 11:13 AM TOOL CRIB ATTENDANT [facility] OCCULT BLOOD,URINE Negative Negative 04/27/2024 11:13 AM TOOL CRIB ATTENDANT [facility] NITRITE Negative Negative 04/27/2024 11:13 AM TOOL CRIB ATTENDANT [facility] LEUKOCYTE ESTERASE Trace(A) Negative 04/27/2024 11:13 AM TOOL CRIB ATTENDANT [facility] Urine URINE SPECIMEN / Unknown Non-Blood / Unknown 04/27/2024 11:05 AM TOOL CRIB ATTENDANT 04/27/2024 11:09 AM TOOL CRIB ATTENDANT us [facility] Ed Triage [place] [address] * STORAGE BATTERY INSPECTOR THIN PREP PAP SCREEN IMAGED (08/20/2020 1:00 PM CDT) Case Report Gynecologic Cytology Report Case: [id number] Authorizing Provider: Megan Hernandez MD Collected: 08/20/2020 1300 Ordering Location: [facility] Received: 08/23/2020 0927 First Screen: Bernabe Cummins Specimen: STORAGE BATTERY INSPECTOR ThinPrep Vial Screening, Cervical/Vaginal 09/01/2020 12:03 PM CDT [employer] INTERPRETATION/ RESULT NEGATIVE FOR INTRAEPITHELIAL LESION OR MALIGNANCY (NIL) (none) 09/01/2020 12:03 PM CDT [facility] IMEN ADEQUACY Satisfactory for evaluation Endocervical component present 09/01/2020 12:03 PM CDT [facility] HPV REQUEST HPV and PAP 09/01/2020 12:[address] Date of LMP 07/30/2020 09/01/2020 12:03 PM CDT [facility] Last Pap Date 08/19/2019 09/01/2020 12:03 PM CDT [facility] Last Pap Result NIL 12:03 PM CDT [facility] Additional Information 09/01/2020 12:03 PM CDT [facility] Comment: Interpreted at [facility] - [address], [place] [address] Automated Review Successful 09/01/2020 12:03 PM CDT [facility] Comment:Specimen processed s uccessfully by automated horseradish grinder device, [email or web address], [employer] ANCILLARY TESTING STORAGE BATTERY INSPECTOR HPV Ordered, Please see separate report 09/01/2020 12:03 PM CDT [facility] Note The pap test is [...] and malignant lesions. 09/01/2020 12:03 PM CDT [facility] Other (Cervical/Vagina l) 08/20/2020 1:00 PM CDT 08/23/2020 9:27 AM CDT us Megan Hernandez MD PATHOLOGY/CYTOLOGY Final Result [facility] [address] [place] [address], [place] * ANTI HCV (11/12/2010 11:20 AM CDT) ANTI HCV Non-reacti ve [facility] Blood specimen (specimen) BLOOD SPECIMEN / Unknown 11/12/2010 11:20 AM CDT 11/12/2010 11:08 AM CDT us Capri Marquez MD SEND OUTS F inal Result [facility] [place]NAL ZIP [address] [address] * ANTI HIV 1/2 (11/12/2010 11:20 AM CDT) ANTI HIV 1/2 Non-reacti ve [facility] Blood specimen (specimen) BLOOD SPECIMEN / Unknown 11/12/2010 11:20 AM CDT 11/12/2010 11:08 AM CDT us Capri Marquez MD SEND OUTS F inal Result [facility] INTERNAL ZIP [address] [address] from Last 3 Months or Most Recently Relevant to Health Maintenance Insurance [employer] CROSS OF NON-MT-ITS [employer] [place] OF NON-MT-ITS Advance Directives * Full Code (Latest Code [...] Code Status Discussion: Reviewed Preferences Care Teams Timber Rider Relationship Specialty Start Date End Date Pedro Boudreaux MD [address] [place] [address] PCP - General Family Practice 05/10/23 Leana Syed, RN, BSN [address] [place] [address] Nurse Navigator - Oncology Registered Nurse 05/29/23 Ceferino Catalan MD [address] [place] [address] Surgery - Cardiothoracic 06/01/23
--- OUTSIDE RECORDS SUMMARY | 2024-05-23 10:31 | XMS_ITS | Encounter Summary ---
Author Organization [place] Address [address] [place] [address]. [place] [address] Care Team Providers Care It Support Consultant Name Role Phone Madelaine Mitchell DO Unavailable [phone] Francesco Merritt MD Unavailable [phone] Gabe Carl MD Unavailable [phone] [place] [address] Primary Care Provider Madelaine Mitchell DO Unavailable Reason for Visit * Reason Onset Date Comments Refill Request 03/27/2024 Encounter Details Date Type Department Care Team (Late st Contact Info) Description 03/27/2024 Tj Daniels [facility] Women's [address] [place] [address] Madelaine Mitchell DO [address] [place] [address] Refill Request Social History Tobacco Use Types [...] to pt to confirm. Ruby Rubio RN DELIVERY ENGINEER [place] R PRODUCTION ENGINEER documented in this encounter Plan of Treatment Not on file documented as of this encounter Visit Diagnoses Diagnosis Anovulation Female infertility associated with anovulation documented in this encounter Additional Health Concerns Infection Onset Date Last Indicated Resolved Time Rule Out COVID-19 04/24/2024 04/24/2024 04/24/2024 6:06 AM PAPER PRODUCTION ENGINEER Assessment Noted Time PHQ-9 Depression Total Score: 21 023 10:16 AM CDT documented as of this encounter Care Teams It Support Consultant Relationship Specialty Start Date End Date [facility], [address] [address] PCP - General 11/28/23 Madelaine Mitchell DO loom stop checker 07/26/16 Francesco Merirtt MD [facility] [address] [place] [address] Family Medicine - Sports Medicine 12/14/18 Gabe Carl MD [address] [facility] [place] [address] Assigned PCP 05/09/21 Madelaine Mitchell DO [address] [address] Assigned OBGYN Provider 03/09/24 documented as of this encounter
--- OUTSIDE RECORDS SUMMARY | 2024-05-23 10:31 | XMS_ITS | Encounter Summary ---
Author Organization [place] Address [address] [place] [address] Care Team Providers Care Rewinder Operator Name Role Phone Rosamaria Jones MD Primary Care Provider UnavailMadelaine Mac DO Unavailable [phone] Jonas Cullen MD Unavailable [phone] CreElaina morales APRN MARKER HAND Unavailable CreElaina morales APRN MARKER HAND Unavailable [phone] No Ref-Primary, Physician Primary Care Provider Rosamaria Jones MD Primary Care Provider UnavailFrancesco Andrea MD Unavailable Rosamaria Jones MD Unavailable Unavailable Loyda Farmer MD Unavailable [phone] Elaina Jiang APRN MARKER HAND Unavailable [phone] Rosamaria Jones MD Unavailable Unavailable Gabe Carl MD Unavailable [phone] Danielle Alcantar MD Unavailable [phone] [facility] Primary Care Provider Madelaine Mitchell DO Unavailable [phone] Reason for Visit * Reason Onset Date Comments Results 10/07/2016 hgb Encounter Details Date Type Department Care Team (Late st Contact Info) Description 10/07/2016 MyC Medical Advice [facility] Ed[facility] [address] [place] [phone] Madelaine Mitchell DO [address] [place] [place] [address] Results (hgb) Social History Tobacco Use Types [...] Out COVID-19 03/31/2021 03/31/2021 03/31/2021 7:10 AM GENERAL ADJUSTER Rule Out COVID-19 09/15/2022 09/15/2022 09/15/2022 9:15 AM CDT Rule Out COVID-19 04/24/2024 04/24/2024 04/24/2024 6:06 AM GENERAL ADJUSTER documented as of this encounter Care Teams Rewinder Operator Relationship Specialty Start Date End Date Rosamaria Jones MD PCP - General Internal Medicine 09/12/14 07/24/18 [place] [address] [place] [address] PCP - Assigned PCP 02/04/18 04/07/18 Elaina Jiang APRN CNP [address] [place] [address] PCP - Assigned PCP 04/08/18 06/19/18 No Ref-Primary, Physician PCP - General 07/25/18 10/05/18 Rosamaria Jones MD PCP - General Internal Medicine 10/06/18 11/27/[address] [address] PCP - General 11/28/23 Madelaine Mitchell DO biodiesel production technician 07/26/16 Elaina Jiang APRN MARKER HAND [address] [place], [place] [address] Assigned PCP 04/08/18 03/30/19 Francesco Merritt MD [id number] [place], [place] [address] Family Medicine - Sports Medicine 12/14/18 Rosamaria Jones MD INACTIVE IN [place] 03/16/2024 Assigned PCP 03/31/19 09/28/19 Loyda Farmer MD [address] [place], [place] [address] Assigned PCP 09/29/19 10/26/19 Elaina Jiang APRN MARKER HAND [address] [place] [address] Assigned PCP 10/27/19 04/03/21 Rosamaria Jones MD INACTIVE IN [place] 03/16/2024 Assigned PCP 04/04/21 05/08/21 Gabe Carl MD [address] [facility] [address] [place] [id number] Assigned PCP 05/09/21 Danielle Alcantar MD [address] [place], [place] [address] Assigned Musculoskeletal Provider 07/18/21 02/03/23 Madelaine Mitchell DO [address] [address] Assigned OBGYN Provider 03/09/24 documented as of this encounter
--- OUTSIDE RECORDS SUMMARY | 2024-05-23 10:31 | XMS_ITS | Encounter Summary ---
Author Organization [place] Address [address] [place] [address] Care Team Providers Care Mandarin Chinese Teacher Name Role Phone Madelaine Mitchell DO Unavailable [phone] Rosamaria Jones MD Primary Care Provider UnavailFrancesco Andrea MD Unavailable [phone] Gabe Carl MD Unavailable [phone] Danielle Alcantar MD Unavailable [phone] [facility] Primary Care Provider Madelaine Mitchell DO Unavailable [phone] Reason for Referral * Infertility Artificial Insemination (Routine: Next available opening) - Closed Specialty Diagnoses / Procedures Referred By Contjoaquin t Referred To Contact Diagnoses [place] [address] [place] [address] Phone: tel: fax: [facility] [address] [place] [address] Phone: tel: Referral ID Status Reason Start Date Expiration Date Visits Re quested Visits Authorized [id number] Closed 06/07/2021 06/07/2022 1 1 Question Answer [...] or coverage questions. [facility]: [phone] [facility] [phone] [facility]. ([facility]) [phone] Other (external) - Use Comments Please call to schedule your appointment OGRAPHIC EQUIPMENT ASSEMBLER Encounter Details Date Type Department Care Team (Late st Contact Info) Description 06/03/2021 MyC Medical Advice [facility] [address] [place] [address] Madelaine Mitchell DO [address] [place] [address] Anovulation (Primary Dx) Social History [...] Out COVID-19 04/24/2024 04/24/2024 04/24/2024 6:06 AM PHOTOGRAPHIC EQUIPMENT ASSEMBLER Assessment Noted Time PHQ-9 Depression Total Score: 10 022 9:03 AM PHOTOGRAPHIC EQUIPMENT ASSEMBLER documented as of this encounter Care Teams Mandarin Chinese Teacher Relationship Specialty Start Date End Date Rosamaria Jones MD PCP - General Internal Medicine 10/06/18 11/27/[address] [address] PCP - General 11/28/23 Madelaine Mitchell DO data center manager 07/26/16 Francesco Merritt MD [address] [place] [address] Family Medicine - Sports Medicine 12/14/18 Gabe Carl MD [address] [facility] [address] [place] [id number] Assigned PCP 05/09/21 Danielle Alcantar MD [address] [place], [place] [address] Assigned Musculoskeletal Provider 07/18/21 02/03/23 Madelaine Mitchell DO [address] [address] Assigned OBGYN Provider 03/09/24 documented as of this encounter
--- OUTSIDE RECORDS SUMMARY | 2024-05-23 10:31 | XMS_ITS | Encounter Summary ---
Author Organization [place] Address [address] [place] [address] Care Team Providers Care Radiographer Angiogram Name Role Phone Madelaine Mitchell DO Unavailable Rosamaria Jones MD Primary Care Provider Unavaillulu e Francesco Merritt MD Unavailable Loyda Farmer MD Unavailable CreElaina morales APRN [facility] Unavailable [phone] Rosamaria Jones MD Unavailable Unavailable Gabe Carl MD Unavailable [phone] Danielle Alcantar MD Unavailable [facility] Primary Care Provider Madelaine Mitchell DO Unavailable Reason for Visit * Reason Comments Medication Refill Encounter Details Date Type Department Care Team (Late st Contact Info) Description 10/13/[address] [address] Madelaine Mitchell DO [address] [facility] 100 [place] [address] Medication Refill Social History Tobacco Use Types [...] Out COVID-19 03/31/2021 03/31/2021 03/31/2021 7:10 AM BLOCKER METAL BASE Rule Out COVID-19 09/15/2022 09/15/2022 09/15/2022 9:15 AM CDT Rule Out COVID-19 04/24/2024 04/24/2024 04/24/2024 6:06 AM BLOCKER METAL BASE Assessment Noted Time PHQ-9 Depression Total Score: 10 019 7:03 AM CDT documented as of this encounter Care Teams Radiographer Angiogram Relationship Specialty Start Date End Date Rosamaria Jones MD PCP - General Internal Medicine 10/06/18 11/27/[address] [address] PCP - General 11/28/23 Madelaine Mitchell DO surgical garment assembly supervisor 07/26/16 Francesco Merritt MD [facility] [id number] [place] [address] Family Medicine - Sports Medicine 12/14/18 Loyda Farmer MD [address] [place] [address] Assigned PCP 09/29/19 10/26/19 Elaina Jiang APRN CNP [address] [place] [address] Assigned PCP 10/27/19 04/03/21 Rosamaria Jones MD INACTIVE IN [place] 03/16/2024 Assigned PCP 04/04/21 05/08/21 Gabe Carl MD [address] [facility] [place] [address] Assigned PCP 05/09/21 Danielle Alcantar MD [address] [place] [address] Assigned Musculoskeletal Provider 07/18/21 02/03/23 Madelaine Mitchell DO [address] [facility] 100 [place] [address] Assigned OBGYN Provider 03/09/24 documented as of this encounter
--- OUTSIDE RECORDS SUMMARY | 2024-05-23 10:31 | XMS_ITS | Encounter Summary ---
Author Organization [place] Address [address] [place] [address] Care Team Providers Care Saddle Mechanic Name Role Phone Madelaine Mitchell DO Unavailable [phone] Rosamaria Jones MD Primary Care Provider UnavailFrancesco Andrea MD Unavailable Elaina Jiang APRN [facility] Unavailable [phone] Rosamaria Jones MD Unavailable Unavailable Gabe Carl MD Unavailable [phone] Danielle Alcantar MD Unavailable [facility] Primary Care Provider Madelaine Mitchell DO Unavailable Encounter Details Date Type Department Care Team (Late st Contact Info) Description 03/14/2021 MyC Medical Advice [facility] Women's [facility] [address] [place] [phone] Madelaine Mitchell DO [address] [place], [place] [address] Anovulation (Primary Dx) Social History Tobacco Use [...] the my chart message. Clif Catalan RN AND CAT FOOD COOK documented in this encounter Plan of Treatment Not on file documented as of this encounter Visit Diagnoses Diagnosis Anovulation- Primary Female infertility associated with anovulation documented in this encounter Additional Health Concerns Infection Onset Date Last Indicated Resolved Time Rule Out COVID-19 03/31/2021 03/31/2021 03/31/2021 7:10 AM DOG AND CAT FOOD COOK Rule Out COVID-19 09/15/2022 09/15/2022 09/15/2022 9:15 AM CDT Rule Out COVID-19 04/24/2024 04/24/2024 04/24/2024 6:06 AM DOG AND CAT FOOD COOK Assessment Noted Time PHQ-9 Depression Total Score: 10 019 7:03 AM CDT documented as of this encounter Care Teams Saddle Mechanic Relationship Specialty Start Date End Date Rosamaria Jones MD PCP - General Internal Medicine 10/06/18 11/27/[address] [address] PCP - General 11/28/23 Madelaine Mitchell DO chemical process equipment operator 07/26/16 Francesco Merritt MD [facility] [place], [place] [address] [place] [address] Family Medicine - Sports Medicine 12/14/18 Elaina Jiang APRN MEDICAL REVIEW COORDINATOR [address] [place] [address] Assigned PCP 10/27/19 04/03/21 Rosamaria Jones MD INACTIVE IN [place] 03/16/2024 Assigned PCP 04/04/21 05/08/21 [place] [address] [place] [address] [place] [address] Assigned PCP 05/09/21 Danielle Alcantar MD [address] [place] [address] Assigned Musculoskeletal Provider 07/18/21 02/03/23 Madelaine Mitchell DO [address] [address] Assigned OBGYN Provider 03/09/24 documented as of this encounter
--- OUTSIDE RECORDS SUMMARY | 2024-05-23 10:31 | XMS_ITS | Encounter Summary ---
Author Organization [place] Address [address] [place] [address] Care Team Providers Care Elderly Companion Name Role Phone Madelaine Mitchell DO Unavailable Rosamaria Jones MD Primary Care Provider Unavaillulu e Francesco Merritt MD Unavailable Rosamaria Jones MD Unavailable Unavailable Serum, Loyda Escobedo MD Unavailable CreaganElaina APRN LAPPING MACHINE SET UP OPERATOR Unavailable [phone] Rosamaria Jones MD Unavailable Unavailable Gabe Carl MD Unavailable [phone] Danielle Alcantar MD Unavailable [facility] Primary Care Provider Madelaine Mitchell DO Unavailable [phone] Encounter Details Date Type Department Care Team (Late st Contact Info) Description 06/28/2019 Orders Only [facility] [place] [address] [facility], [address] [place] [address] Porsha [...] COLP CERVIX/UPPER VAGINA Routine 04/25/2019 12:00 AM JUNIOR ORACLE DBA documented in this encounter Results * COLP CERVIX/UPPER VAGINA (04/25/2019 12:00 AM JUNIOR ORACLE DBA) us Patient Reported PROCEDURES Final Result documented in this encounter Visit Diagnoses Not on filedocumented in this encounter Additional Health Concerns Infection Onset Date Last Indicated Resolved Time Rule Out COVID-19 03/31/2021 03/31/2021 03/31/2021 7:10 AM JUNIOR ORACLE DBA Rule Out COVID-19 09/15/2022 09/15/2022 09/15/2022 9:15 AM CDT Rule Out COVID-19 04/24/2024 04/24/2024 04/24/2024 6:06 AM JUNIOR ORACLE DBA Assessment Noted Time PHQ-9 Depression Total Score: 10 019 7:03 AM CDT documented as of this encounter Care Teams Elderly Companion Relationship Specialty Start Date End Date Rosamaria Jones MD PCP - General Internal Medicine 10/06/18 11/27/[address] [address] PCP - General 11/28/23 Madelaine Mitchell DO telephone sales representative 07/26/16 Francesco Merritt MD [facility] [address] [address] Family Medicine - Sports Medicine 12/14/18 Rosamaria Jones MD INACTIVE IN [place] 03/16/2024 Assigned PCP 03/31/19 09/28/19 Loyda Farmer MD [address] [place] [address] Assigned PCP 09/29/19 10/26/19 Elaina Jiang APRN CNP [address] [place] [address] Assigned PCP 10/27/19 04/03/21 Rosamaria Jones MD INACTIVE IN [place] 03/16/2024 Assigned PCP 04/04/21 05/08/21 Gabe Carl MD [address] [place] [address] Assigned PCP 05/09/21 Danielle Alcantar MD 9 [place] [address] Assigned Musculoskeletal Provider 07/18/21 02/03/23 Madelaine Mitchell DO [address] [address] Assigned OBGYN Provider 03/09/24 documented as of this encounter
--- OUTSIDE RECORDS SUMMARY | 2024-05-23 10:32 | XMS_ITS | Encounter Summary ---
Author Organization [place] Address [address] [place] [address] Care Team Providers Care Hand Presser Name Role Phone Madelaine Mitchell DO Unavailable Francesco Merritt MD Unavailable Gabe Carl MD Unavailable [phone] [place] [address] Primary Care Provider Madelaine Mitchell DO Unavailable Reason for Visit * Reason Comments Medication Refill Encounter Details Date Type Department Care Team (Late st Contact Info) Description 05/03/2024 Refill [facility] Women's [place] [address] [place] [phone] Madelaine Mitchell DO [address] [place] [address] Medication Refill Social History Tobacco Use Types [...] Telephone Encounter - Marcella Arce RN - 05/03/2024 3:42 PM CST Louise Last Written Prescription Date: 05/13/23 Last Fill Quantity: 5, # refills: 1 Last Office Visit: 02/08/24 Future Office visit: not scheduled Routing refill request to provider for review/approval because: Drug not on the [facility], P or Health refill protocol or controlled substance Ok to refill? Please advise? Marcella Arce RN [place] OBGYN LOADER documented in this encounter Plan of Treatment Not on file documented as of this encounter Visit Diagnoses Diagnosis Anovulation Female infertility associated with anovulation documented in this encounter Additional Health Concerns Assessment Noted Time PHQ-9 Depression Total Score: 21 023 10:16 AM CDT documented as of this encounter Care Teams Hand Presser Relationship Specialty Start Date End Date [facility], [address] [id number] PCP - General 11/28/23 Madelaine Mitchell DO hydrogen braze furnace operator 07/26/16 Francesco Merritt MD [address] [place] [address] Family Medicine - Sports Medicine 12/14/18 Gabe Carl MD [address] [place] [address] V[place]ICI[place] [address] Assigned PCP 05/09/21 Madelaine Mitchell DO [address] [address] Assigned OBGYN Provider 03/09/24 documented as of this encounter
--- OUTSIDE RECORDS SUMMARY | 2024-05-23 10:32 | XMS_ITS | Encounter Summary ---
Author Organization [place] Address [address] [place] [address]. [place] [address] Care Team Providers Care Reverser Name Role Phone Madelaine Mitchell DO Unavailable [phone] Francesco Merritt MD Unavailable [phone] Gabe Carl MD Unavailable [phone] [place] [address] [facility] Primary Care Provider Madelaine Mitchell DO Unavailable Encounter Details Date Type Department Care Team (Late st Contact Info) Description 02/20/2024 MyC Medical Advice [facility] Women's [place] [address] [place] [phone] Madelaine Mitchell DO [address] [place] [address] Social History Tobacco Use Types Packs/Day Years [...] Please see mychart: Pt response CASTRO Baez S SUPERVISOR * Telephone Encounter - Marcella Arce RN - 02/22/2024 8:01 AM CST Please see mychart message: Pt response CASTRO Baez S SUPERVISOR * Telephone Encounter - Marcella Arce RN - 02/21/2024 11:00 AM SALES SUPERVISOR Please mychart message: Pt response to questions. CASTRO Baez S SUPERVISOR * Telephone Encounter - Grisel Catalan RN - 02/20/2024 11:46 AM SALES SUPERVISOR Please address the chart message. Last OV 02/08/24. Clif Catalan RN S SUPERVISOR documented in this encounter Plan of Treatment Not on file documented as of this encounter Visit Diagnoses Not on filedocumented in this encounter Additional Health Concerns Infection Onset Date Last Indicated Resolved Time Rule Out COVID-19 04/24/2024 04/24/2024 04/24/2024 6:06 AM SALES SUPERVISOR Assessment Noted Time PHQ-9 Depression Total Score: 21 023 10:16 AM CDT documented as of this encounter Care Teams Reverser Relationship Specialty Start Date End Date [facility], [address] [address] PCP - General 11/28/23 Madelaine Mitchell DO live in companion 07/26/16 Francesco Merritt MD [address] [place] [address] Family Medicine - Sports Medicine 12/14/18 Gabe Carl MD [address] [facility] [place] [address] Assigned PCP 05/09/21 Madelaine Mitchell DO [address] [facility] 100 [place] [address] Assigned OBGYN Provider 03/09/24 documented as of this encounter
--- OUTSIDE RECORDS SUMMARY | 2024-05-23 10:32 | XMS_ITS | Encounter Summary ---
Author Organization [facility] Address [address] [place] [address]. [place] [address] Care Team Providers Care Medical Radiation Therapist Name Role Phone Madelaine Mitchell DO Unavailable Francesco Merritt MD Unavailable Gabe Carl MD Unavailable [phone] [place] [address] Primary Care Provider Madelaine Mitchell DO Unavailable Reason for Visit * Reason Comments Drug / Alcohol Assessment Encounter Details Date Type Department Care Team (Late st Contact Info) Description 04/24/2024 4:35 AM ORE TESTER - 04/24/2024 6:56 AM [facility] Emergency [facility] Emergency Dept [address] [place] [address] Jose Price MD [facility] [address] [place] [address] Alcohol withdrawal syndrome without complication (H); Anxiety Discharge Disposition: Home or Self Care Social [...] Sign Reading Time Taken Comments Blood Pressure 150/89 04/24/2024 6:56 AM ORE TESTER Pulse 85 04/24/2024 6:56 AM ORE TESTER Temperature 36.9 C (98.4 F) 04/24/2024 4:30 AM ORE TESTER Respiratory Rate 18 04/24/2024 6:56 AM ORE TESTER Oxygen Saturation 99% 04/24/2024 6:56 AM ORE TESTER Inhaled Oxygen Concentration - - Weight 90.7 kg (200 lb) 04/24/2024 4:30 AM ORE TESTER Height 165.1 cm (5' 5) 04/24/2024 4:30 AM ORE TESTER Body Mass Index 33.28 04/24/2024 4:30 AM ORE TESTER documented in this encounter Discharge Instructions * Discharge Instructions* Jose Price MD - 04/24/2024 6:48 AM ORE TESTER Please use the below resources and your primary care physician to safely cease alcohol and/or substance use. Return to the ED if you are having any urgent/life-threatening concerns. DISCHARGE RESOURCES: [facility] [phone] (detox), (outpatient& Lodging Plus) SMART Recovery - self management for addiction recovery: www.smartrecovery.org Pathways ~ A Health Crisis Resource & Support Center: 131.864.7955. [facility] [phone] Substance Abuse and Mental Health Services (www.samhsa.gov) Harm Reduction Coalition (www.Harmreduction.org) [place] Opioid Prevention Coalition: www.opioidcoalition.org Poison control Sober Support Group Information: AA/NA & Sponsor/Support Alcoholics Anonymous (www.alcoholics-anonymous.org) AA Intergroup service office in [place] (http://www.aastpaul.org/) [phone] AA Intergroup service office in [facility]: [phone]. (http://www.a[place].org/) Secular AA (www.secularaa.org) Narcotics Anonymous (www.nam[place].org) Sober Fun Activities: www.sober-activities.[employer]/[facility]//[place] [facility] ([facility]) [facility] connects people seeking recovery to resources that help foster and sustain long-term recovery. Whether you are seeking resources for treatment, transportation, housing, job training, education, health care or other pathways to recovery, [facility] is a great place to start. . www.[place] (Great listing of all types of recovery and non-recovery related resources)? TESTER * Attachments The following attachments cannot be sent through Care Everywhere. * Alcohol Withdrawal: General Info (Nepalese) documented in this encounter Medications at Time of Discharge azelastine (ASTELIN) 0.1 % nasal sprayIndications: Post-nasal drip [place] 1 spray into both nostrils 2 times daily 1 Bottle 11 10/22/2018 diazepam (VALIUM) 2 MG tablet 1 TABLET BY MOUTH NIGHTLY FOR 14 NIGHTS, THEN DISCONTINUE. 06/22/2021 gabapentin (NEURONTIN) 300 MG capsule Take 1 capsule (300 mg) by mouth 4 times daily for 1 day, THEN 1 capsule (300 mg) 3 times daily for 1 day, THEN 1 capsule (300 mg) 2 times daily for 1 day, THEN 1 capsule (300 mg) at bedtime for 1 day. 10 capsule 04/24/2024 hydrOXYzine (ATARAX) 25 MG tablet Take 25 [...] muscle spasms 20 tablet 04/30/2021 nystatin (MYCOSTATIN) 133855 UNIT/ML suspension TAKE 6 ML BY MOUTH FOUR TIMES A DAY SWISH IN MOUTH AND SWALLOW. KEEP IN MOUTH LONG POSSIBLE PRIOR TO SWALLOWING. 01/31/2020 Vit-Fe Fumarate-FA ( MULTIVITAMIN PLUS IRON) 27-0.8 MG TABS Take 1 tablet by mouth daily. ondansetron (ZOFRAN ODT) 4 MG ODT tab Take 1 tablet (4 mg) by mouth every 8 hours as needed for nausea. 10 tablet 04/24/2024 5 letrozole (FEMARA) 2.5 MG tabletIndications :Anovulation Take 1 tablet (2.5 mg) by mouth daily. 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 The patient stated wanting to createa plan for alcohol withdrawal. She stated having chest pain, nausea, shakes and headaches. She added these started five days ago. She stated her last drink of alcohol was yesterday. She stated she was sober since November. She added this time around she drank a lot. She stated the amount varied everyday. She stated having Lorazepam this morning. She stated her heart rate yesterday was 150. She denies a history of alcohol withdrawal seizures or ever being admitted for alcohol. She noted being in detox once before. She denies suicidal and homicidal ideations. She noted in being interested in outpatient help. Independent Historian None Past Medical History Medical History and Problem List UTI Gastritis Depression Pituitary adenoma Alcohol withdrawal Carcinoid tumor of right lung Mastitis Asthma Medications Albuterol Bromocriptine mesylate Fluconazole Letrozole Metformin Hydroxyzine Lorazepam Surgical History Colonoscopy Tooth extraction Lasik Patella fixation Physical Exam Patient Vitals for the past 24 hrs: BP Temp Temp src Pulse Resp SpO2 Height Weight 04/24/24 0656 (!) 150/89 -- -- 85 18 99 % -- -- 04/24/24 0430 (!) 146/113 98.4 ??F (36.9 ??C) Temporal 86 18 99 % 1.651 m (5' 5) 90.7 kg (200 lb) Physical Exam General: Patient is awake, alert Head: The scalp, face, and head appear normal Eyes: The pupils are equal, round, and reactive to light. Conjunctivae and sclerae are normal ENT: External acoustic canals are normal. The oropharynx is normal without erythema. Uvula is in the midline Neck: Normal range of motion. CV: Regular rate and rhythm. Resp: Lungs are clear without wheezes or rales. No respiratory distress. GI: Abdomen is soft, no rigidity, guarding, or rebound. No distension. No tenderness to palpation in any quadrant. MS: Normal tone. Joints grossly normal without effusions. No asymmetric leg swelling, calf or thightenderness. Skin: No rash or lesions noted. Normal capillary refill noted Neuro: Speech is normal and fluent. Face is symmetric. Moving all extremities. Psych: Normal affect. Appropriate interactions. Diagnostics Lab Results Labs Ordered and Resulted from Time of ED Arrival to Time of ED Departure BASIC METABOLIC PANEL - Abnormal Result Value Sodium 138 Potassium 4.4 Chloride 102 Carbon Dioxide (CO2) 22 Anion Gap 14 Urea Nitrogen 9.9 Creatinine 0.61 GFR Estimate >90 Calcium 9.3 Glucose 100 (*) TROPONIN T, HIGH SENSITIVITY - Normal Troponin T, High Sensitivity <6 INFLUENZA A/B, RSV AND SARS-COV2 PCR - Normal Influenza A PCR Negative Influenza B PCR Negative RSV PCR Negative SARS CoV2 PCR Negative CBC WITH PLATELETS AND DIFFERENTIAL WBC Count 6.6 RBC Count 4.06 Hemoglobin 12.3 Hematocrit 37.4 MCV 92 MCH 30.3 MCHC 32.9 RDW 13.2 Platelet Count 230 % Neutrophils 53 % Lymphocytes 38 % Monocytes 7 % Eosinophils 1 % Basophils 1 % Immature Granulocytes 1 NRBCs per 100 WBC 0 Absolute Neutrophils 3.5 Absolute Lymphocytes 2.5 Absolute Monocytes 0.5 Absolute Eosinophils 0.1 Absolute Basophils 0.0 Absolute Immature Granulocytes 0.0 Absolute NRBCs 0.0 Imaging XR Chest 2 Views Final Result IMPRESSION: Normal heart size. Suture material noted in the central aspect of the right lung with opacification of the anteromedial aspect of the right lung base which may be postoperative in nature.Lungs otherwise clear. No pneumothorax or pleural effusion. EKG ECG taken at 0435, ECG read at 0516 Normal sinus rhythm Rate 85 bpm. OR interval 152 ms. QRS duration 76 ms. QT/QTc 344/409 ms. P-R-T axes 12 39 18. ED Course Medications Administered Medications ondansetron (ZOFRAN) injection 4 mg (4 mg Intravenous $Given 04/24/24 0623) sodium chloride 0.9% BOLUS 1,000 mL (0 mLs Intravenous Stopped 04/24/24 0649) ketorolac (TORADOL) injection 15 mg (15 mg Intravenous $Given 04/24/2432) gabapentin (NEURONTIN) capsule 1,200 mg (1,200 mg Oral $Given 04/24/24 0530) hydrOXYzine HCl (ATARAX) tablet 25 mg (25 mg Oral Not Given 04/24/2432) prochlorperazine (COMPAZINE) injection 10 mg (10 mg Intravenous $Given 04/24/24627) acetaminophen (TYLENOL) tablet 1,000 mg (1,000 mg Oral $Given 04/24/24627) ED Course ED Course as of 04/24/24 07MonApr 24, 2024 0516 I obtained history and examined the patient as noted above. Medical Decision Making / Diagnosis MDM Neda Moss is a 33 year old female who presents the emergency department with headache, nausea, anxiety and shakes consistent with previous episodes of alcohol withdrawal that she has had the past. Clinically she looks quite anxious but does not display significant evidence of alcohol withdrawal at this time. Patient was treated with oral gabapentin and symptomatic cares. I offered detox but patient platelet declined. Will provide outpatient resources. Will also start the patient on gabapentin taper. The remainder of her workup is reassuring. Disposition The patient was discharged. Diagnosis ICD-10-CM 1. Alcohol withdrawal syndrome without complication (H) F10.930 2. Anxiety F41.9 Discharge Medications Discharge Medication List as of 04/24/2024 6:49 AM START taking these medications Details gabapentin (NEURONTIN) 300 MG capsule Take 1 capsule (300 mg) by mouth 4 times daily for 1 day, THEN 1 capsule (300 mg) 3 times daily for 1 day, THEN 1 capsule (300 mg) 2 times daily for 1 day, THEN 1 capsule (300 mg) at bedtime for 1 day., Disp-10 capsule, R-0, Local Print ondansetron (ZOFRAN ODT) 4 MG ODT tab Take 1 tablet (4 mg) by mouth every 8 hours as needed for nausea., Disp-10 tablet, R-0, Local Print Scribe Disclosure: I, Kristen Terrazas, am serving as a scribe at 5:47 AM on 04/24/2024 to document services personally performed by Jose Price MD based on my observations and the provider's statements to me. Jose Price MD 04/24/24 0730 TESTER * Chyna German RN - 04/24/2024 4:32 AM CST Presents with c/o chest heaviness for the past couple of hours with ureña and nausea. Feels anxious. States she feels like she is going to stroke out. Took clonidine for elevated HR. States HR was 150but down to 120 after clonidine TESTER documented in this encounter Plan of Treatment Not on file documented as of this encounter Procedures Procedure Name Priority Date/Time Associated Diagnosis Comments CBC WITH PLATELETS AND DIFFERENTIAL STAT 04/24/2024 5:33 AM ORE TESTER CBC WITH PLATELETS & DIFFERENTIAL STAT 04/24/2024 5:33 AM ORE TESTER INFLUENZA A/B, RSV AND SARS-COV2 PCR STAT 04/24/2024 5:23 AM ORE TESTER XR CHEST 2 VIEWS STAT 04/24/2024 5:07 AM ORE TESTER EXTRA TUBE STAT 04/24/2024 4:57 AM ORE TESTER EXTRA RED TOP TUBE STAT 04/24/2024 4: 57 AM ORE TESTER EXTRA BLUE TOP TUBE STAT 04/24/2024 4 :57 AM ORE TESTER TROPONIN T, HIGH SENSITIVITY STAT 04/24/2024 4:57 AM ORE TESTER BASIC METABOLIC PANEL STAT 04/24/2024 4:57 AM ORE TESTER EKG 12-LEAD, TRACING ONLY STAT 04/24/2024 4:35 AM ORE TESTER documented in this encounter Results * CBC with platelets and differential (04/24/2024 5:33 AM ORE TESTER) WBC Count 6.6 4.0 - 11.0 10e3/uL 04/24/2024 5:42 AM ORE TESTER [facility] RBC Count 4.06 3.80 - 5.20 10e6/uL 04/24/2024 5:42 AM ORE TESTER [facility] Hemoglobin 12.3 11.7 - 15.7 g/dL 04/24/2024 5:42 AM ORE TESTER [facility] Hematocrit 37.4 35.0 - 47.0 % 04/24/2024 5:42 AM ORE TESTER [facility] MCV 92 78 - 100 fL 04/24/2024 5:42 AM ORE TE[facility] MCH 30.3 26.5 - 33.0 pg 04/24/2024 5:42 AM ORE TESTER [facility] MCHC 32.9 31.5 - 36.5 g/dL 04/24/2024 5:42 AM O[facility] TE[facility] RDW 13.2 10.0 - 15.0 % 04/24/2024 5:42 AM ORE TESTER [facility] Platelet Count 230 150 - 450 10e3/uL 04/24/2024 5:42 AM ORE TESTER [facility] % Neutrophils 53 % 04/24/2024 5:42 AM ORE TESTER [facility] % Lymphocytes 38 % 04/24/2024 5:42 AM ORE TESTER [facility] % Monocytes 7 % 04/24/2024 5:42 AM ORE TESTER [facility] % Eosinophils 1 % 04/24/2024 5:42 AM ORE TESTER [facility] % Basophils 1 % 04/24/2024 5:42 AM ORE TESTER [facility] % Immature Granulocytes 1 % 04/24/2024 5:42 AM ORE TESTER LABORATORY NRBCs per 100 WBC 0 <1 /100 025 5:42 AM ORE TESTER LABORATORY Absolute Neutrophils 3.5 1.6 - 8.3 10e3/uL 04/24/2024 5:42 AM ORE TESTER LABORATORY Absolute Lymphocytes 2.5 0.8 - 5.3 10e3/uL 04/24/2024 5:42 AM ORE TESTER LABORATORY Absolute Monocytes 0.5 0.0 - 1.3 10e3/uL 04/24/2024 5:42 AM ORE TESTER LABORATORY Absolute Eosinophils 0.1 0.0 - 0.7 10e3/uL 04/24/2024 5:42 AM ORE TESTER LABORATORY Absolute Basophils 0.0 0.0 - 0.2 10e3/uL 04/24/2024 5:42 AM ORE TESTER LABORATORY Absolute Immature Granulocytes 0.0 <=0.4 10e3/uL 04/24/2024 5:42 AM ORE TESTER LABORATORY Absolute NRBCs 0.0 10e3/uL 04/24/2024 5:42 AM ORE TESTER LABORATORY Blood BLOOD SPECIMEN / Unknown Venipuncture / Unknown 04/24/2024 5:33 AM ORE TESTER 04/24/2024 5:39 AM ORE TESTER Jose Price MD LAB - BLOOD ORDER MENDEZ Final Result LABORATORY [facility] [address] [facility] (1st floor, no room number) [place] [address] * Influenza A/B, RSV and SARS-CoV2 PCR (COVID-19) Nasopharyngeal (04/24/2024 5:23 AM ORE TESTER) Influenza A PCR Negative Negative 04/24/2024 6:06 AM ORE TESTER LABORATORY Influenza B PCR Negative Negative 04/24/2024 6:06 AM ORE TESTER LABORATORY RSV PCR Negative Negative 04/24/2024 6:06 AM ORE TESTER LABORATORY SARS CoV2 PCR Negative Negative 04/24/2024 6:06 AM ORE TESTER LABORATORY Comment:NEGATIVE: SARS-CoV-2 (COVID-19) RNA not detected, presumed negative. Swab NASOPHARYNGEAL STRUCTURE / Unknown Non-blood Collection / Unknown 04/24/2024 5:23 AM ORE TESTER 04/24/2024 5:29 AM ORE TESTER Narrative LABORATORY - 04/24/2024 6:06 AM ORE TESTER Testing was performed using the Xpert Xpress CoV2/Flu/RSV Assay on the [employer] GeneXpert Instrument. This test should be ordered for the detection of SARS- CoV2, influenza, and RSV viruses in individuals with signs and symptoms of respiratory tract infection. This test is for in vitro diagnostic use under the [place] FDA for laboratories certified under CLIA to perform high or moderate complexity testing. This test has been [place] FDA cleared. A negative result does not rule out the presence of PCR inhibitors in the specimen or target RNA in concentration below the limit of detection for the assay. If only one viral target is positive but coinfection with multiple targets is suspected, the sample should be re-tested with another FDA cleared, approved, or authorized test, if coninfection would change clinical management. This test was validated by the [facility]. These laboratories are certified under the Clinical Laboratory Improvement Amendments of 1988 (CLIA-88) as qualified to perfom high complexity laboratory testing. us Jose Price MD LAB - MICRO GENER AL ORDERABLES Final Result [facility] [address] [facility] (1st floor, no room number) [place] [address], [facility] * XR Chest 2 Views (04/24/2024 5:07 AM ORE TESTER) Anatomical Region Laterality Modality Chest Computed Radiogr aphy 04/24/2024 5:07 AM ORE TESTER Impressions 04/24/2024 5:13 AM ORE TESTER IMPRESSION: Normal heart size. Suture material noted in the central aspect of the right lung with opacification of the anteromedial aspect of the right lung base which may be postoperative in nature. Lungs otherwise clear. No pneumothorax or pleural effusion. Narrative 04/24/2024 5:13 AM ORE TESTER EXAM: XR CHEST 2 VIEWS LOCATION: [facility] DATE: 04/24/2024 INDICATION: chest pain COMPARISON: 09/15/2022 Procedure Note Yoav Osei MD - 04/24/2024 EXAM: XR CHEST 2 VIEWS LOCATION: [facility] DATE: 04/24/2024 INDICATION: chest pain COMPARISON: 09/15/2022 IMPRESSION: Normal heart size. Suture material noted in the central aspectof the right lung with opacification of the anteromedial aspect of theright lung base which may be postoperative in nature. Lungs otherwiseclear. No pneumothorax or pleural effusion. Jose Price MD IMG DIAGNOSTIC IM AGING ORDERABLES Final Result * Extra Red Top Tube (04/24/2024 4:57 AM ORE TESTER) Hold Specimen [facility] 04/24/2024 6:06 AM ORE TESTER LABORATORY Blood BLOOD SPECIMEN / Unknown Venipuncture / Unknown 04/24/2024 4:57 AM ORE TESTER 04/24/2024 5:01 AM ORE TESTER Jose Price MD LAB - BLOOD ORDER MENDEZ Final Result [facility] [address] [facility] (1st floor, no room number) [place] [id number] [place] [address] * Extra Blue Top Tube (04/24/2024 4:57 AM ORE TESTER) Hold Specimen [facility] 04/24/2024 6:06 AM ORE TESTER LABORATORY Blood BLOOD SPECIMEN / Unknown Venipuncture / Unknown 04/24/2024 4:57 AM ORE TESTER 04/24/2024 5:01 AM ORE TESTER Jose Price MD LAB - BLOOD ORDER MENDEZ Final Result [facility] [address] Lab (1st floor, no room number) [place] [address] * Troponin T, High Sensitivity (04/24/2024 4:57 AM ORE TESTER) Troponin T, High Sensitivity <6 <=14 ng/L 04/24/2024 5:26 AM [facility] Comment: Either a High Sensitivity Troponin T baseline (0 hours) value = 100 ng/L, or an increase in High Sensitivity Troponin T = 7 ng/L at 2 hours compared to 0 hours (2-0 hours), suggests myocardial injury, and urgent clinical attention is required. If the 2-0 hours increase is <7 [...] follow-up, or urgent outpatient provocative testing. Blood BLOOD SPECIMEN / Unknown Venipuncture / Unknown 04/24/2024 4:57 AM ORE TESTER 04/24/2024 5:01 AM [facility] Jose Price MD LAB - BLOOD ORDER MENDEZ Final Result LABORATORY [facility] [address] [facility] [facility] (1st floor, no room number) [place] [address] * (ABNORMAL) Basic metabolic panel (04/24/2024 4:57 AM ORE TESTER) [facility] Sodium 138 135 - 145 mmol/L 04/24/2024 5:26 AM [facility] Potassium 4.4 3.4 - 5.3 mmol/L 04/24/2024 5:26 AM [facility] Chloride 102 98 - 107 mmol/L 04/24/2024 5:26 AM [facility] Carbon Dioxide (CO2) 22 22 - 29 mmol/L 04/24/2024 5:26 AM [facility] Anion Gap 14 7 - 15 mmol/L 04/24/2024 5:26 AM [facility] Urea Nitrogen 9.9 6.0 - 20.0 mg/dL 04/24/2024 5:26 AM [facility] Creatinine 0.61 0.51 - 0.95 mg/dL 04/24/2024 5:26 AM ORE TESTER LABORATORY GFR Estimate >90 >60 mL/min/1.7 3m2 04/24/2024 5:26 AM ORE TESTER LABORATORY Comment:eGFR calculated usin 2020 CKD-EPI equation. Calcium 9.3 8.8 - 10.4 mg/dL 04/24/2024 5:26 AM ORE TESTER LABORATORY Comment:Reference intervals for this test were updated on 10/31/2023 to reflect our healthy population more accurately. There may be differences in the flagging of prior results with similar values performed with this method. Those prior results can be interpreted in the context of the updated reference intervals. Glucose 100(H) 70 - 99 mg/dL 04/24/2024 5:26 AM ORE TESTER LABORATORY Blood BLOOD SPECIMEN / Unknown Venipuncture / Unknown 04/24/2024 4:57 AM ORE TESTER 04/24/2024 5:01 AM ORE TESTER us Jose Price MD LAB - BLOOD ORDER MENDEZ Final Result LABORATORY [facility] [address] Lab (1st floor, no room number) [place] [address] * EKG 12-lead, tracing only (04/24/2024 4:35 AM ORE TESTER) Systolic Blood Pressure mmHg RADIOLOGY RESULTS Diastolic Blood Pressure mmHg RADIOLOGY RESULTS Ventricular Rate 85 BPM RAD IOLOGY RESULTS Atrial Rate 85 BPM RADIOLOG Y RESULTS OR Interval 152 ms RADIOLOG Y RESULTS QRS Duration 76 ms RADIOLO GY RESULTS QT 344 ms RADIOLOGY RESULTS QTc 409 ms RADIOLOGY RESULTS P Sloan 12 degrees RADIOLOGY RESULTS R AXIS 39 degrees RADIOLOGY RESULTS T Sloan 18 degrees RADIOLOGY RESULTS Interpretation ECG Sinus rhythm Normal ECG When compared with ECG of 05-Jan-2024 01:13, Vent. rate has increased by 33 bpm Unconfirmed report - interpretation of this ECG is computer generated - see medical record for final interpretation Confirmed by - EMERGENCY ROOM, PHYSICIAN ([id number]), supervising film or videotape editor YEISON LAU ([id number]) on 04/24/2024 6:37:23 AM RADIOLOGY RESULTS 04/24/2024 4:35 AM ORE TESTER 04/24/2024 6:37 AM ORE TESTER Jose Price MD ECG ORDERABLES E dited Result - Final RADIOLOGY RESULTS documented in this encounter Visit Diagnoses Diagnosis Alcohol withdrawal syndrome without complication (H) Anxiety Anxiety state, unspecified documented in this encounter Administered Medications Inactive Administered Medications - up to 3 most recent administrations Medication Order MAR Action Action Date Dose Rate Site acetaminophen (TYLENOL) tablet 1,000 mg 1,000 mg, Oral, ONCE, On Mon04/24/24 at 0625, For 1 dose, Maximum acetaminophen dose from all sources = 75 mg/kg/day not to exceed 4 gram $Given 04/24/2024 6:28 AM ORE TESTER 1,000 mg gabapentin (NEURONTIN) capsule 1,200 mg 1,200 mg, Oral, ONCE, On Mon04/24/24 at 0525, For 1 dose $Given 04/24/2024 5:30 AM ORE TESTER 1,200 mg ketorolac (TORADOL) injection 15 mg 15 mg, Intravenous, ONCE, On Mon04/24/24 at 0505, For 1 dose, Do not give within 6 hours of Ibuprofen. Can cause pain on injection. If ordered intravenously (IV) : administer through a running maintenance fluid over 1 minute followed by a flush. If patient complains of pain on injection, may dilute 15-30 mg in 5 mL and push over 1 to 2 minutes. $Given 04/24/2024 5:32 AM ORE TESTER 15 mg ondansetron (ZOFRAN) injection 4 mg 4 mg, Intravenous, EVERY 30 MIN PRN, nausea, vomiting, Administer over 2-5 Minutes, Starting on Mon04/24/24 at 0501, For 3 doses, May repeat in 30 minutes as needed, up to 3 doses. $Given 04/24/2024 6:23 AM ORE TESTER 4 mg $Given 04/24/2024 5:32 AM ORE TESTER 4 mg prochlorperazine (COMPAZINE) injection 10 mg 10 mg, Intravenous, ONCE, Administer over 1-2 Minutes, On Mon04/24/24 at 0625, For 1 dose $Given 04/24/2024 6:28 AM ORE TESTER 10 mg sodium chloride 0.9% BOLUS 1,000 mL Intravenous, 1,000 mL, ONCE, at 1,000 mL/hr, Administer over 1 Hours, On Mon04/24/24 at 0505, For 1 dose $New Bag 04/24/2024 5:31 AM ORE TESTER 1,000 mLs 1000 mL/hr documented in this encounter Active and Recently Administered Medications Times are shown in ORE TESTER. Scheduled Medication Order 04/22/2024 04/23/2024 04/24/2024 acetaminophen (TYLENOL) tablet 1,000 mg (COMPLETED) 1,000 mg, Oral, ONCE, On Mon04/24/24 at 0625, For 1 dose, Maximum acetaminophen dose from all sources = 75 mg/kg/day not to exceed 4 gram 0628 ($Given - Provi vidhi: Queta Betancur, CASTRO) gabapentin (NEURONTIN) capsule 1,200 mg (COMPLETED) 1,200 mg, Oral, ONCE, On Mon04/24/24 at 0525, For 1 dose 0530 ($Given - Provi vidhi: Queta Betancur, CASTRO) ketorolac (TORADOL) injection 15 mg (COMPLETED) 15 mg, Intravenous, ONCE, On Mon04/24/24 at 0505, For 1 dose, Do not give within 6 hours of Ibuprofen. Can cause pain on injection. If ordered intravenously (IV) : administer through a running maintenance fluid over 1 minute followed by a flush. If patient complains of pain on injection, may dilute 15-30 mg in 5 mL and push over 1 to 2 minutes. 0532 ($Given - Provi vidhi: Orlin Montano RN) prochlorperazine (COMPAZINE) injection 10 mg (COMPLETED) 10 mg, Intravenous, ONCE, Administer over 1-2 Minutes, On Mon04/24/24 at 0625, For 1 dose 0628 ($Given - Provi vidhi: Queta Betancur, CASTRO) sodium chloride 0.9% BOLUS 1,000 mL (COMPLETED) Intravenous, 1,000 mL, ONCE, at 1,000 mL/hr, Administer over 1 Hours, On Mon04/24/24 at 0505, For 1 dose 0531 ($New Bag - Pro vider: Orlin Montano RN)0649 (Stopped - Provider: Queta Betancur RN) PRN Medication Order 04/22/2024 04/23/2024 04/24/2024 ondansetron (ZOFRAN) injection 4 mg 4 mg, Intravenous, EVERY 30 MIN PRN, nausea, vomiting, Administer over 2-5 Minutes, Starting on Mon04/24/24 at 0501, For 3 doses, May repeat in 30 minutes as needed, up to 3 doses. 0560 ($Given - Provi vidhi: Orlin Montano RN)7650 ($Given - Provider: Queta Betancur RN) documented in this encounter Additional Health Concerns Infection Onset Date Last Indicated Resolved Time Rule Out COVID-19 04/24/2024 04/24/2024 04/24/2024 6:06 AM ORE TESTER Assessment Noted Time PHQ-9 Depression Total Score: 21 023 10:16 AM CDT documented as of this encounter Care Teams Medical Radiation Therapist Relationship Specialty Start Date End Date [facility], [address] [address] PCP - General 11/28/23 Madelaine Mitchell DO nursery laborer 07/26/16 Francesco Merritt MD [address] [place] [address] Family Medicine - Sports Medicine 12/14/18 Gabe Carl MD [address] [facility] [place] [address] Assigned PCP 05/09/21 Madelaine Mitchell DO [address] [place] [address] Assigned OBGYN Provider 03/09/24 documented as of this encounter
--- OUTSIDE RECORDS SUMMARY | 2024-05-23 10:32 | XMS_ITS | Encounter Summary ---
Author Organization [facility] Address [address] [place] [address]. [place] [address] Care Team Providers Care Oxide Furnace Tender Name Role Phone Madelaine Mitchell DO Unavailable [phone] Rosamaria Jones MD Primary Care Provider [facility] Francesco Merritt MD Unavailable Gabe Carl MD Unavailable [phone] Danielle Alcantar MD Unavailable [phone] [facility] Primary Care Provider Madelaine Mitchell DO Unavailable [phone] Encounter Details Date Type Department Care Team (Late st Contact Info) Description 01/08/2023 MyC Medical Advice [facility] [address] [address] 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
--- OUTSIDE RECORDS SUMMARY | 2024-05-23 10:32 | XMS_ITS | Encounter Summary ---
Author Organization [facility] Address [address] [place] [address]. [place] [address] Care Team Providers Care Circuit Board Inspector Name Role Phone Madelaine Mitchell DO Unavailable [phone] Rosamaria Jones MD Primary Care Provider UnavailFrancesco Andrea MD Unavailable [phone] Gabe Carl MD Unavailable [phone] Danielle Alcantar MD Unavailable [phone] [facility] Primary Care Provider Madelaine Mitchell DO Unavailable [phone] Encounter Details Date Type Department Care Team (Late st Contact Info) Description 08/27/2021 [facility]ice [address] [place] [address] Danielle Wright, PT [address] [address] Social History Tobacco Use Types Packs/Day Years [...] Out COVID-19 04/24/2024 04/24/2024 04/24/2024 6:06 AM TICKET PRINTER AND TAGGER Assessment Noted Time PHQ-9 Depression Total Score: 10 022 9:03 AM TICKET PRINTER AND TAGGER documented as of this encounter Care Teams Circuit Board Inspector Relationship Specialty Start Date End Date Rosamaria Jones MD PCP - General Internal Medicine 10/06/18 11/27/[address] [address] PCP - General 11/28/23 Madelaine Mitchell DO employee training specialist 07/26/16 Francesco Merritt MD [address] [place] [id number] Family Medicine - Sports Medicine 12/14/18 Gabe Carl MD [address] [place] [address] [place] [address] Assigned PCP 05/09/21 Danielle Alcantar MD [address] [place] [address] [id number] Assigned Musculoskeletal Provider 07/18/21 02/03/23 Madelaine Mitchell DO [address] [address] Assigned OBGYN Provider 03/09/24 documented as of this encounter
--- OUTSIDE RECORDS SUMMARY | 2024-05-23 10:32 | XMS_ITS | Clinical Summary ---
Author Organization [place] Address [address] [place] [address] Care Team Providers Care Lining Setter Name Role Phone Madelaine Mitchell DO Unavailable [phone] Francesco Merritt MD Unavailable [phone] Gabe Carl MD Unavailable [phone] [place] [address] Primary Care Provider Madelaine Mitchell DO Unavailable [phone] Allergies Active Allergy Reactions Criticality Noted Date Comments Chlordiazepoxide Anaphylaxis High 04/24/2024 Pt reported Polymyxin B-Trimethoprim 07/20/2017 Swelling in eye Sulfa [...] daily Active azelastine (ASTELIN) 0.1 % nasal sprayIndication s:Post-nasal drip [place] 1 spray into both nostrils 2 times daily 1 Bottle 11 10/23/19 19 Active metFORMIN (GLUCOPHAGE-XR) 500 MG 24 hr tabletIndicatio ns:PCOS (polycystic ovarian syndrome) TAKE 4 TABLETS BY MOUTH DAILY 360 tablet 1 04/08/20 19 Active nystatin (MYCOSTATIN) 530491 UNIT/ML suspension TAKE 6 ML BY MOUTH FOUR TIMES A DAY SWISH IN MOUTH AND SWALLOW. KEEP IN MOUTH LONG POSSIBLE PRIOR TO SWALLOWING. 01/31/20 20 Active letrozole (FEMARA) 2.5 MG tabletIndicatio ns:Anovulation Take 1 tablet (2.5 mg) by mouth See Admin Instructions 35 tablet 03/18/20 21 Active Additional Information Patient not taking.Reported on 10/24/2022 methocarbamol (ROBAXIN) 500 MG tabletIndicatio ns:Trapezius muscle spasm,Left arm numbness Take 1-2 tablets [...] times daily as needed for anxiety. Active gabapentin (NEURONTIN) 300 MG capsule Take 1 capsule (300 mg) by mouth 4 times daily for 1 day, THEN 1 capsule (300 mg) 3 times daily for 1 day, THEN 1 capsule (300 mg) 2 times daily for 1 day, THEN 1 capsule (300 mg) at bedtime for 1 day. 10 capsule 04/24/19 25 Active letrozole (FEMARA) 2.5 MG tabletIndicatio ns:Anovulation TAKE ONE TABLET BY MOUTH DAILY ON DAY 3 TO 7 OF THE MENSTRUAL CYCLE 5 tablet 1 05/15/19 25 Active letrozole (FEMARA) 2.5 MG tabletIndicatio ns:Anovulation Take 1 tablet (2.5 mg) by mouth daily. 5 tablet 1 03/13/20 24 2024 Discontinued ondansetron (ZOFRAN ODT) 4 MG ODT tab Take 1 tablet (4 mg) by mouth every 8 hours as needed for nausea. 10 tablet 04/24/19 25 2024 Active Problems Problem Noted Date Diagnosed Date Pituitary adenoma 02/15/2024 Overview (02/15/2024): 6 mm by MRI, 2023, Normal labs. 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 Plan colp 04/25/18 [place] - no visible lesions, no bx. Plan [...] Encounters Date Type Department Care Team Description 05/03/2024 Refill [facility] [address] [place] [phone] Madelaine Mitchell DO Medication Refill 04/24/2024 4:35 AM LOGISTICS TECHNICIAN - 04/24/2024 6:56 AM LOGISTICS TECHNICIAN Emergency [facility] [address] [place] [address] Jose Price MD Alcohol withdrawal syndrome without complication (H); Anxiety Discharge Disposition: Home or Self Care 04/24/2024 Travel 03/27/2024 MyC Refill [facility] [address] [place] [address] Madelaine Mitchell, DO Refill Request 03/12/2024 MyC Medical Advice [facility] [address] [place] [address] Madelaine Mitchell, DO Medication Request 03/12/2024 MyC Refill [facility] [address] [place] [address] Madelaine Mitchell, DO Refill Request from Last 3 Months Immunizations Name Administration [...] Comments Blood Pressure 150/89 04/24/2024 6:56 AM LOGISTICS TECHNICIAN Pulse 85 04/24/2024 6:56 AM LOGISTICS TECHNICIAN Temperature 36.9 C (98.4 F) 04/24/2024 4:30 AM LOGISTICS TECHNICIAN Respiratory Rate 18 04/24/2024 6:56 AM LOGISTICS TECHNICIAN Oxygen Saturation 99% 04/24/2024 6:56 AM LOGISTICS TECHNICIAN Inhaled Oxygen Concentration - - Weight 90.7 kg (200 lb) 04/24/2024 4:30 AM LOGISTICS TECHNICIAN Height 165.1 cm (5' 5) 04/24/2024 4:30 AM LOGISTICS TECHNICIAN Body Mass Index 33.28 04/24/2024 4:30 AM LOGISTICS TECHNICIAN Plan of Treatment Health Maintenance Due Date Last Done Comments ADVANCE CARE PLANNING 1989 HEPATITIS A IMMUNIZATION (2 of 2 - Risk 2-dose series) 01/25/2007 07/26/2006, 07/26/2006 Pneumococcal Vaccine: Pediat rics (0 to 5 Years) and At-Risk Patients (6 to 49 Years) (1 of 2 - PCV) 2008 YEARLY PREVENTIVE VISIT 03/28/2019 03/28/20 18, 04/11/2017, 04/11/2016, Additional history exists PAP 08/20/2021 08/20/2020, 05/0 09/2020, 08/19/2019, Additional history exists PHQ-9 04/26/2023 10/24/2022, 04/17, 09/25/2018, Additional history exists ANNUAL REVIEW OF HM ORDERS 10/25/2023 10/24/2022 COVID-19 Vaccine (1 - 2023-2 5 season) 2023 INFLUENZA VACCINE (#1) 2023 , 02/04/2019, 01/17/2018, Additional history exists DTAP/TDAP/TD IMMUNIZATION (1 2 - Td or Tdap) 02/19/2032 02/18/2022, 05/03/2019, 05/03/2019, Additional history exists ZOSTER IMMUNIZATION (1 of 2) 07/28/2039 HEPATITIS B IMMUNIZATION Completed 001, 08/06/1999, 06/07/1999 MENINGITIS IMMUNIZATION Completed 07/26/2006, 07/26 HEPATITIS C SCREENING Completed 11/12/2010 HPV IMMUNIZATION Completed 12/12/2011, , 11/12/2010, Additional history exists HIV SCREENING Completed 05/05/2016, 11/12/2010 DEPRESSION ACTION PLAN Completed 09/25/2018 HPV FOLLOW-UP Completed 08/20/2020, 050 07/2019, 08/19/2019, Additional history exists PAP FOLLOW-UP Completed 08/20/2020, 050 09/2020, 08/19/2019, Additional history exists Procedures Procedure Name Priority Date/Time Associated Diagnosis Comments CBC WITH PLATELETS & DIFFERENTIAL STAT 04/24/2024 5:33 AM LOGISTICS TECHNICIAN CBC WITH PLATELETS AND DIFFERENTIAL STAT 04/24/2024 5:33 AM LOGISTICS TECHNICIAN INFLUENZA A/B, RSV AND SARS-COV2 PCR STAT 04/24/2024 5:23 AM LOGISTICS TECHNICIAN XR CHEST 2 VIEWS STAT 04/24/2024 5:07 AM LOGISTICS TECHNICIAN EXTRA RED TOP TUBE STAT 04/24/2024 4: 57 AM LOGISTICS TECHNICIAN EXTRA BLUE TOP TUBE STAT 04/24/2024 4 :57 AM LOGISTICS TECHNICIAN EXTRA TUBE STAT 04/24/2024 4:57 AM LOGISTICS TECHNICIAN TROPONIN T, HIGH SENSITIVITY STAT 04/24/2024 4:57 AM LOGISTICS TECHNICIAN BASIC METABOLIC PANEL STAT 04/24/2024 4:57 AM LOGISTICS TECHNICIAN EKG 12-LEAD, TRACING ONLY STAT 04/24/2024 4:35 AM LOGISTICS TECHNICIAN HPV HIGH RISK TYPES DNA CERVICAL Routine 03/28/2018 9:20 AM LOGISTICS TECHNICIAN PCOS (polycystic ovarian syndrome) PAP IMAGED THIN LAYER SCREEN Routine 03/28/2018 9:09 AM LOGISTICS TECHNICIAN Encounter for general adult medical examination with abnormal findings HIV ANTIGEN ANTIBODY COMBO Routine 05/05/2016 9:51 AM LOGISTICS TECHNICIAN test positive from Last 3 Months or Most Recently Relevant to Health Maintenance Results * CBC with platelets and differential (04/24/2024 5:33 AM LOGISTICS TECHNICIAN) WBC Count 6.6 4.0 - 11.0 10e3/uL 04/24/2024 5:42 AM LOGISTICS TECHNICIAN [facility] RBC Count 4.06 3.80 - 5.20 10e6/uL 04/24/2024 5:42 AM LOGISTICS TECHNICIAN [facility] Hemoglobin 12.3 11.7 - 15.7 g/dL 04/24/2024 5:42 AM LOGISTICS TECHNICIAN [facility] Hematocrit 37.4 35.0 - 47.0 % 04/24/2024 5:42 AM LOGISTICS TECHNICIAN [facility] MCV 92 78 - 100 fL 04/24/2024 5:42 AM LOGISTICS TECHNICIAN [facility] MCH 30.3 26.5 - 33.0 pg 04/24/2024 5:42 AM LOGISTICS TECHNICIAN [facility] MCHC 32.9 31.5 - 36.5 g/dL 04/24/2024 5:42 AM LOGISTICS TECHNICIAN [facility] RDW 13.2 10.0 - 15.0 % 04/24/2024 5:42 AM LOGISTICS TECHNICIAN [facility] Platelet Count 230 150 - 450 10e3/uL 04/24/2024 5:42 AM LOGISTICS TECHNICIAN [facility] % Neutrophils 53 % 04/24/2024 5:42 AM LOGISTICS TECHNICIAN [facility] % Lymphocytes 38 % 04/24/2024 5:42 AM LOGISTICS TECHNICIAN [facility] % Monocytes 7 % 04/24/2024 5:42 AM LOGISTICS TECHNICIAN [facility] % Eosinophils 1 % 04/24/2024 5:42 AM LOGISTICS TECHNICIAN [facility] % Basophils 1 % 04/24/2024 5:42 AM LOGISTICS TECHNICIAN [facility] % Immature Granulocytes 1 % 04/24/2024 5:42 AM LOGISTICS TECHNICIAN [facility] NRBCs per 100 WBC 0 <1 /100 025 5:42 AM LOGISTICS TECHNICIAN [facility] Absolute Neutrophils 3.5 1.6 - 8.3 10e3/uL 04/24/2024 5:42 AM LOGISTICS TECHNICIAN [facility] Absolute Lymphocytes 2.5 0.8 - 5.3 10e3/uL 04/24/2024 5:42 AM LOGISTICS TECHNICIAN [facility] Absolute Monocytes 0.5 0.0 - 1.3 10e3/uL 04/24/2024 5:42 AM LOGISTICS TECHNICIAN [facility] Absolute Eosinophils 0.1 0.0 - 0.7 10e3/uL 04/24/2024 5:42 AM LOGISTICS TECHNICIAN [facility] Absolute Basophils 0.0 0.0 - 0.2 10e3/uL 04/24/2024 5:42 AM LOGISTICS TECHNICIAN [facility] Absolute Immature Granulocytes 0.0 <=0.4 10e3/uL 04/24/2024 5:42 AM LOGISTICS TECHNICIAN [facility] Absolute NRBCs 0.0 10e3/uL 04/24/2024 5:42 AM LOGISTICS TECHNICIAN [facility] Blood BLOOD SPECIMEN / Unknown Venipuncture / Unknown 04/24/2024 5:33 AM LOGISTICS TECHNICIAN 04/24/2024 5:39 AM LOGISTICS TECHNICIAN us Jose Price MD LAB - BLOOD ORDER MENDEZ Final Result [facility] [address] [facility] Lab (1st floor, no room number) [place] [address], [facility] * Influenza A/B, RSV and SARS-CoV2 PCR (COVID-19) Nasopharyngeal (04/24/2024 5:23 AM LOGISTICS TECHNICIAN) [facility] Influenza A PCR Negative Negative 04/24/2024 6:06 AM LOGISTICS TECHNICIAN [facility] Influenza B PCR Negative Negative 04/24/2024 6:06 AM LOGISTICS TECHNICIAN [facility] RSV PCR Negative Negative 04/24/2024 6:06 AM LOGISTICS TECHNICIAN [facility] SARS CoV2 PCR Negative Negative 04/24/2024 6:06 AM LOGISTICS TECHNICIAN [facility] Comment:NEGATIVE: SARS-CoV-2 (COVID-19) RNA not detected, presumed negative. Swab NASOPHARYNGEAL STRUCTURE / Unknown Non-blood Collection / Unknown 04/24/2024 5:23 AM LOGISTICS TECHNICIAN 04/24/2024 5:29 AM LOGISTICS TECHNICIAN Narrative [facility] - 04/24/2024 6:06 AM LOGISTICS TECHNICIAN Testing was performed using the Xpert Xpress CoV2/Flu/RSV Assay on the [employer] GeneXpert Instrument. This test should be ordered [...] management. This test was validated by the [facility]. These laboratories are certified under the Clinical Laboratory Improvement Amendments of 1988 (CLIA-88) as qualified to perfom high complexity laboratory testing. Jose Price MD LAB - MICRO GENER AL ORDERABLES Final Result [facility] Acute Care Lab [address] [facility] Lab (1st floor, no room number) [place] [address], [facility] * XR Chest 2 Views (04/24/2024 5:07 AM LOGISTICS TECHNICIAN) Anatomical Region Laterality Modality Chest Computed Radiogr aphy 04/24/2024 5:07 AM LOGISTICS TECHNICIAN Impressions 04/24/2024 5:13 AM LOGISTICS TECHNICIAN IMPRESSION: Normal heart size. Suture material noted in the central aspect of the right lung with opacification of the anteromedial aspect of the right lung base which may be postoperative in nature. Lungs otherwise clear. No pneumothorax or pleural effusion. Narrative 04/24/2024 5:13 AM LOGISTICS TECHNICIAN EXAM: XR CHEST 2 VIEWS LOCATION: [facility] DATE: 04/24/2024 INDICATION: chest pain COMPARISON: 09/15/2022 Procedure Note Yoav Osei MD - 04/24/2024 EXAM: XR CHEST 2 VIEWS LOCATION: [facility] DATE: 04/24/2024 INDICATION: chest pain COMPARISON: 09/15/2022 IMPRESSION: Normal heart size. Suture material noted in the central aspectof the right lung with opacification of the anteromedial aspect of theright lung base which may be postoperative in nature. Lungs otherwiseclear. No pneumothorax or pleural effusion. us Jose Price MD IMG DIAGNOSTIC IM AGING ORDERABLES Final Result * Extra Red Top Tube (04/24/2024 4:57 AM LOGISTICS TECHNICIAN) Hold Specimen [facility] 04/24/2024 6:06 AM LOGISTICS TECHNICIAN LABORATORY Blood BLOOD SPECIMEN / Unknown Venipuncture / Unknown 04/24/2024 4:57 AM LOGISTICS TECHNICIAN 04/24/2024 5:01 AM LOGISTICS TECHNICIAN us Jose Price MD LAB - BLOOD ORDER MENDEZ Final Result Performing Organization Address City/State/[facility] Co de Phone Number [facility] [address] Lab (1st floor, no room number) [place] [address] * Extra Blue Top Tube (04/24/2024 4:57 AM LOGISTICS TECHNICIAN) Hold Specimen [facility] 04/24/2024 6:06 AM LOGISTICS TECHNICIAN LABORATORY Blood BLOOD SPECIMEN / Unknown Venipuncture / Unknown 04/24/2024 4:57 AM LOGISTICS TECHNICIAN 04/24/2024 5:01 AM LOGISTICS TECHNICIAN Jose Price MD LAB - BLOOD ORDER MENDEZ Final Result LABORATORY [facility] Acute [facility] [address] Lab (1st floor, no room number) [place] [address] * Troponin T, High Sensitivity (04/24/2024 4:57 AM LOGISTICS TECHNICIAN) Troponin T, High Sensitivity <6 <=14 ng/L 04/24/2024 5:26 AM LOGISTICS TECHNICIAN LABORATORY Comment: Either a High Sensitivity Troponin [...] Unknown Venipuncture / Unknown 04/24/2024 4:57 AM LOGISTICS TECHNICIAN 04/24/2024 5:01 AM LOGISTICS TECHNICIAN Jose Price MD LAB - BLOOD ORDER MENDEZ Final Result LABORATORY [facility] [address] Lab (1st floor, no room number) [place] [address] * (ABNORMAL) Basic metabolic panel (04/24/2024 4:57 AM LOGISTICS TECHNICIAN) Sodium 138 135 - 145 mmol/L 04/24/2024 5:26 AM LOGISTICS TECHNICIAN LABORATORY Potassium 4.4 3.4 - 5.3 mmol/L 04/24/2024 5:26 AM LOGISTICS TECHNICIAN LABORATORY Chloride 102 98 - 107 mmol/L 04/24/2024 5:26 AM LOGISTICS TECHNICIAN LABORATORY Carbon Dioxide (CO2) 22 22 - 29 mmol/L 04/24/2024 5:26 AM LOGISTICS TECHNICIAN LABORATORY Anion Gap 14 7 - 15 mmol/L 04/24/2024 5:26 AM [facility] Urea Nitrogen 9.9 6.0 - 20.0 mg/dL 04/24/2024 5:26 AM [facility] Creatinine 0.61 0.51 - 0.95 mg/dL 04/24/2024 5:26 AM [facility] GFR Estimate >90 >60 mL/min/1.7 3m2 04/24/2024 5:26 AM [facility] Comment:eGFR calculated usin 2020 CKD-EPI equation. Calcium 9.3 8.8 - 10.4 mg/dL 04/24/2024 5:26 AM [facility] Comment:Reference intervals for this test were updated on 10/31/2023 to reflect our healthy population more accurately. There may be differences in the flagging of prior results with similar values performed with this method. Those prior results can be interpreted in the context of the updated reference intervals. Glucose 100(H) 70 - 99 mg/dL 04/24/2024 5:26 AM [facility] Blood BLOOD SPECIMEN / Unknown Venipuncture / Unknown 04/24/2024 4:57 AM LOGISTICS TECHNICIAN 04/24/2024 5:01 AM LOGISTICS TECHNICIAN us Jose Price MD LAB - BLOOD ORDER MENDEZ Final Result LABORATORY [facility] [address] [facility] Lab (1st floor, no room number) [place] [address] * EKG 12-lead, tracing only (04/24/2024 4:35 AM LOGISTICS TECHNICIAN) Systolic Blood Pressure mmHg RADIOLOGY RESULTS Diastolic Blood Pressure mmHg RADIOLOGY RESULTS Ventricular Rate 85 BPM RAD IOLOGY RESULTS Atrial Rate 85 BPM RADIOLOG Y RESULTS WY Interval 152 ms RADIOLOG Y RESULTS QRS Duration 76 ms RADIOLO GY RESULTS QT 344 ms RADIOLOGY RESULTS QTc 409 ms RADIOLOGY RESULTS P [place] 12 degrees RADIOLOGY RESULTS R AXIS 39 degrees RADIOLOGY RESULTS T [place] 18 degrees RADIOLOGY RESULTS Interpretation ECG Sinus rhythm Normal ECG When compared with ECG of 05-Jan-2024 01:13, Vent. rate has increased by 33 bpm Unconfirmed report - interpretation of this ECG is computer generated - see medical record for final interpretation Confirmed by - EMERGENCY ROOM, PHYSICIAN ([id number]), social media editor YEISON LAU ([id number]) on 04/24/2024 6:37:23 AM RADIOLOGY RESULTS 04/24/2024 4:35 AM LOGISTICS TECHNICIAN 04/24/2024 6:37 AM LOGISTICS TECHNICIAN us Jose Price MD ECG ORDERABLES E dited Result - Final RADIOLOGY RESULTS * (ABNORMAL) HPV High Risk Types DNA Cervical (03/28/2018 9:20 AM LOGISTICS TECHNICIAN) HPV Source [facility] 04/03/2018 7:38 AM LOGISTICS TECHNICIAN [facility] HPV 16 DNA Negative NEG^Nega tive 04/03/2018 4:18 PM LOGISTICS TECHNICIAN [facility] HPV 18 DNA Negative NEG^Nega tive 04/03/2018 4:18 PM LOGISTICS TECHNICIAN [facility] Other HR HPV Positive(A) NEG^Nega tive 04/03/2018 4:18 PM LOGISTICS TECHNICIAN [facility] Final Diagnosis This patient's sample is positive for other HR HPV DNA (types 31, 33, 35, 39, 45, 51, 52, 56, 58, 59, 66 or 68), not HPV 16 or HPV 18 DNA. This result requires clinical correlation with concurrent cytology findings. 04/03/2018 4:18 PM LOGISTICS TECHNICIAN [facility] Comment: This test was developed and its performance characteristics determined by the [facility]. It has not been [...] Specimen Description Cervical Cells 04/03/2018 7:38 AM LOGISTICS TECHNICIAN [facility] Comment:[id number] 03/28/2018 9:20 AM LOGISTICS TECHNICIAN 03/28/2018 2:56 PM LOGISTICS TECHNICIAN us Tristen Spann [employer]DR[employer]CCUP[employer] HE[facility] PHYSICIAN LAB - BLOOD ORDERABL ES Final Result [facility] [address] [place] [address] * (ABNORMAL) Pap imaged thin layer screen reflex to HPV if ASCUS - recommend age 25 - 29 (03/28/2018 9:09 AM LOGISTICS TECHNICIAN) PAP ASC-US(A) JOSE JUAN Singh Report Patient Name: MADI YANG MR#: [id number] Specimen #: [id number] Collected: 03/28/2018 Received: 03/29/2018 Reported: 04/02/2018 14:41 [...] Processed and screened at [facility] CLINICAL HISTORY: LMP: 03/05/2018 A previous normal pap Date of Last Pap: 01/01/2015, Papanicolaou Test Limitations: Cervical cytology is a screening test with limited sensitivity; regular screening is critical for cancer prevention; Pap tests are primarily effective for the diagnosis/preventi on of squamous cell carcinoma, not adenocarcinomas or other cancers. TESTING LAB LOCATION: [facility] [address] [place] [id number] COLLECTION SITE: Client: [facility] Location: [facility]IIM (R) [facility] Cytologic material (specimen) 03/28/2018 9:09 AM LOGISTICS TECHNICIAN 03/29/2018 11:25 AM LOGISTICS TECHNICIAN us Tristen Spann HYDROPUL[facility] OCCUP[facility] HEALTH PHYSICIAN LAB - [facility] L SPECIMEN Final Result [facility] * HIV Antigen Antibody Combo (05/05/2016 9:51 AM LOGISTICS TECHNICIAN) HIV Antigen Antibody Combo Nonreactive HIV-1 p24 Ag & HIV-1/HIV-2 Ab Not Detected NR [facility] Blood specimen (specimen) 05/05/2016 9:51 AM LOGISTICS TECHNICIAN 05/05/2016 9:56 AM LOGISTICS TECHNICIAN us Madelaine Mitchell DO LAB - BLOOD ORDERABLES Fi nal Result Performing Organization Address City/[facility]/ZIP Co de Phone Number [address] from Last 3 Months or Most Recently Relevant to Health Maintenance Insurance [facility] OUT OF STATE BCBS OUT OF STATE BCBS OUT OF STATE Care Teams Lining Setter Relationship Specialty Start Date End Date [facility], [address] [address] PCP - General 11/28/23 Madelaine Mitchell DO banker mason 07/26/16 Francesco Merritt MD [address] [facility] [address] [place] [address] Family Medicine - Sports Medicine 12/14/18 Gabe Carl MD [address] [place] [address] Assigned PCP 05/09/21 Madelaine Mitchell DO [address] [facility] [address] [place] [address] Assigned OBGYN Provider 03/09/24
--- OUTSIDE RECORDS SUMMARY | 2024-05-23 10:32 | XMS_ITS | Referral Summary ---
Author Organization [facility] Address [address] [place] [address] Care Team Providers Care Yield Analyst Name Role Phone Madelaine Mitchell DO Unavailable Francesco Merritt MD Unavailable [phone] Gabe Carl MD Unavailable [phone] [place] [address] Primary Care Provider Madelaine Mitchell DO Unavailable Encounters Date Type Department Care Team Description 05/03/2024 Refill [facility] [address] [place] [address] Madelaine Mitchell DO Medication Refill 04/24/2024 Travel 04/24/2024 4:35 AM CONFIGURATION DEVELOPER - 04/24/2024 6:56 AM CONFIGURATION DEVELOPER Emergency [facility] Emergency Dept [address] [place] [address] Jose Price MD Alcohol withdrawal syndrome without complication (H); Anxiety Discharge Disposition: Home or Self Care 03/27/2024 MyC Refill [facility] [address] [place] [address] Madelaine Mitchell DO Refill Request 03/12/2024 MyC Medical Advice [facility] [address] [place] [address] Madelaine Mitchell, Medication Request 03/12/2024 MyC [facility]ill [facility] [address] [place] [address] Madelaine Mitchell, Refill Request from Last 3 Months Allergies Active Allergy [...] (ASTELIN) 0.1 % nasal sprayIndication s:Post-nasal drip Start 1 spray into both nostrils 2 times daily 1 Bottle 11 10/23/19 19 Active metFORMIN (GLUCOPHAGE-XR) 500 MG 24 hr tabletIndicatio ns:PCOS (polycystic ovarian syndrome) TAKE 4 TABLETS BY MOUTH DAILY 360 tablet 1 04/08/20 19 Active nystatin (MYCOSTATIN) 489219 UNIT/ML suspension TAKE 6 ML BY MOUTH [...] (07/14/2021): Added automatically from request for surgery [id number] 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 Plan colp 04/25/18 [place] - no visible lesions, no bx. Plan pap due in 1 year pap from previous pap 03/13/19 Pap reminder letter sent. ([facility]) 03/14/19 TE states pt is 25 weeks (ASAD 06/27/19), no appts in chart. ([facility]) CCT tracking Headache 12/16/2016 PCOS (polycystic ovarian [...] Comments Blood Pressure 150/89 04/24/2024 6:56 AM CONFIGURATION DEVELOPER Pulse 85 04/24/2024 6:56 AM CONFIGURATION DEVELOPER Temperature 36.9 C (98.4 F) 04/24/2024 4:30 AM CONFIGURATION DEVELOPER Respiratory Rate 18 04/24/2024 6:56 AM CONFIGURATION DEVELOPER Oxygen Saturation 99% 04/24/2024 6:56 AM CONFIGURATION DEVELOPER Inhaled Oxygen Concentration - - Weight 90.7 kg (200 lb) 04/24/2024 4:30 AM CONFIGURATION DEVELOPER Height 165.1 cm (5' 5) 04/24/2024 4:30 AM CONFIGURATION DEVELOPER Body Mass Index 33.28 04/24/2024 4:30 AM CONFIGURATION DEVELOPER Plan of Treatment Not on file Procedures Procedure Name Priority Date/Time Associated Diagnosis Comments CBC WITH PLATELETS & DIFFERENTIAL STAT 04/24/2024 5:33 AM CONFIGURATION DEVELOPER CBC WITH PLATELETS AND DIFFERENTIAL STAT 04/24/2024 5:33 AM CONFIGURATION DEVELOPER INFLUENZA A/B, RSV AND SARS-COV2 PCR STAT 04/24/2024 5:23 AM CONFIGURATION DEVELOPER XR CHEST 2 VIEWS STAT 04/24/2024 5:07 AM CONFIGURATION DEVELOPER EXTRA RED TOP TUBE STAT 04/24/2024 4: 57 AM CONFIGURATION DEVELOPER EXTRA BLUE TOP TUBE STAT 04/24/2024 4 :57 AM CONFIGURATION DEVELOPER EXTRA TUBE STAT 04/24/2024 4:57 AM CONFIGURATION DEVELOPER TROPONIN T, HIGH SENSITIVITY STAT 04/24/2024 4:57 AM CONFIGURATION DEVELOPER BASIC METABOLIC PANEL STAT 04/24/2024 4:57 AM CONFIGURATION DEVELOPER EKG 12-LEAD, TRACING ONLY STAT 04/24/2024 4:35 AM CONFIGURATION DEVELOPER HPV HIGH RISK TYPES DNA CERVICAL Routine 03/28/2018 9:20 AM CONFIGURATION DEVELOPER PCOS (polycystic ovarian syndrome) PAP IMAGED THIN LAYER SCREEN Routine 03/28/2018 9:09 AM CONFIGURATION DEVELOPER Encounter for general adult medical examination with abnormal findings HIV ANTIGEN ANTIBODY COMBO Routine 05/05/2016 9:51 AM CONFIGURATION DEVELOPER test positive from Last 3 Months or Most Recently Relevant to Health Maintenance Results * CBC with platelets and differential (04/24/2024 5:33 AM CONFIGURATION DEVELOPER) WBC Count 6.6 4.0 - 11.0 10e3/uL 04/24/2024 5:42 AM CONFIGURATION DEVELOPER [facility] RBC Count 4.06 3.80 - 5.20 10e6/uL 04/24/2024 5:42 AM CONFIGURATION DEVELOPER [facility] Hemoglobin 12.3 11.7 - 15.7 g/dL 04/24/2024 5:42 AM CONFIGURATION DEVELOPER [facility] Hematocrit 37.4 35.0 - 47.0 % 04/24/2024 5:42 AM CONFIGURATION DEVELOPER [facility] MCV 92 78 - 100 fL 04/24/2024 5:42 AM CONFIGURATION DEVELOPER [facility] MCH 30.3 26.5 - 33.0 pg 04/24/2024 5:42 AM CONFIGURATION DEVELOPER [facility] MCHC 32.9 31.5 - 36.5 g/dL 04/24/2024 5:42 AM CONFIGURATION DEVELOPER [facility] RDW 13.2 10.0 - 15.0 % 04/24/2024 5:42 AM CONFIGURATION DEVELOPER [facility] Platelet Count 230 150 - 450 10e3/uL 04/24/2024 5:42 AM CONFIGURATION DEVELOPER [facility] % Neutrophils 53 % 04/24/2024 5:42 AM CONFIGURATION DEVELOPER [facility] % Lymphocytes 38 % 04/24/2024 5:42 AM CONFIGURATION DEVELOPER [facility] % Monocytes 7 % 04/24/2024 5:42 AM CONFIGURATION DEVELOPER [facility] % Eosinophils 1 % 04/24/2024 5:42 AM CONFIGURATION DEVELOPER [facility] % Basophils 1 % 04/24/2024 5:42 AM CONFIGURATION DEVELOPER [facility] % Immature Granulocytes 1 % 04/24/2024 5:42 AM CONFIGURATION DEVELOPER [facility] NRBCs per 100 WBC 0 <1 /100 025 5:42 AM CONFIGURATION DEVELOPER [facility] Absolute Neutrophils 3.5 1.6 - 8.3 10e3/uL 04/24/2024 5:42 AM CONFIGURATION DEVELOPER [facility] Absolute Lymphocytes 2.5 0.8 - 5.3 10e3/uL 04/24/2024 5:42 AM CONFIGURATION DEVELOPER [facility] Absolute Monocytes 0.5 0.0 - 1.3 10e3/uL 04/24/2024 5:42 AM CONFIGURATION DEVELOPER [facility] Absolute Eosinophils 0.1 0.0 - 0.7 10e3/uL 04/24/2024 5:42 AM CONFIGURATION DEVELOPER [facility] Absolute Basophils 0.0 0.0 - 0.2 10e3/uL 04/24/2024 5:42 AM CONFIGURATION DEVELOPER [facility] Absolute Immature Granulocytes 0.0 <=0.4 10e3/uL 04/24/2024 5:42 AM CONFIGURATION DEVELOPER [facility] Absolute NRBCs 0.0 10e3/uL 04/24/2024 5:42 AM CONFIGURATION DEVELOPER [facility] Blood BLOOD SPECIMEN / Unknown Venipuncture / Unknown 04/24/2024 5:33 AM CONFIGURATION DEVELOPER 04/24/2024 5:39 AM CONFIGURATION DEVELOPER us Jose Price MD LAB - BLOOD ORDER MENDEZ Final Result LABORATORY [facility] Acute [facility] [address] Lab (1st floor, no room number) [place] [address] * Influenza A/B, RSV and SARS-CoV2 PCR (COVID-19) Nasopharyngeal (04/24/2024 5:23 AM CONFIGURATION DEVELOPER) Influenza A PCR Negative Negative 04/24/2024 6:06 AM CONFIGURATION DEVELOPER [facility] Influenza B PCR Negative Negative 04/24/2024 6:06 AM CONFIGURATION DEVELOPER [facility] RSV PCR Negative Negative 04/24/2024 6:06 AM CONFIGURATION DEVELOPER [facility] SARS CoV2 PCR Negative Negative 04/24/2024 6:06 AM CONFIGURATION DEVELOPER [facility] Comment:NEGATIVE: SARS-CoV-2 (COVID-19) RNA not detected, presumed negative. Swab NASOPHARYNGEAL STRUCTURE / Unknown Non-blood Collection / Unknown 04/24/2024 5:23 AM CONFIGURATION DEVELOPER 04/24/2024 5:29 AM CONFIGURATION DEVELOPER Narrative [facility] - 04/24/2024 6:06 AM CONFIGURATION DEVELOPER Testing was performed using the Xpert Xpress CoV2/Flu/RSV Assay on the [employer]TakesXpert Instrument. This test should be ordered for [...] management. This test was validated by the [facility]. These laboratories are certified under the Clinical Laboratory Improvement Amendments of 1988 (CLIA-88) as qualified to perfom high complexity laboratory testing. Jose Price MD LAB - MICRO GENER AL ORDERABLES Final Result LABORATORY [facility] Acute Care Lab [address] Lab (1st floor, no room number) [place] [address], [facility] * XR Chest 2 Views (04/24/2024 5:07 AM CONFIGURATION DEVELOPER) Anatomical Region Laterality Modality Chest Computed Radiogr aphy 04/24/2024 5:07 AM CONFIGURATION DEVELOPER Impressions 04/24/2024 5:13 AM CONFIGURATION DEVELOPER IMPRESSION: Normal heart size. Suture material noted in the central aspect of the right lung with opacification of the anteromedial aspect of the right lung base which may be postoperative in nature. Lungs otherwise clear. No pneumothorax or pleural effusion. Narrative 04/24/2024 5:13 AM CONFIGURATION DEVELOPER EXAM: XR CHEST 2 VIEWS LOCATION: [facility] DATE: 04/24/2024 INDICATION: chest pain COMPARISON: 09/15/2022 Procedure Note Yoav Osei MD - 04/24/2024 EXAM: XR CHEST 2 VIEWS LOCATION: [facility] DATE: 04/24/2024 INDICATION: chest pain COMPARISON: 09/15/2022 IMPRESSION: Normal heart size. Suture material noted in the central aspectof the right lung with opacification of the anteromedial aspect of theright lung base which may be postoperative in nature. Lungs otherwiseclear. No pneumothorax or pleural effusion. Jose Price MD IMG DIAGNOSTIC IM AGING ORDERABLES Final Result * Extra Red Top Tube (04/24/2024 4:57 AM CONFIGURATION DEVELOPER) Hold Specimen [facility] 04/24/2024 6:06 AM CONFIGURATION DEVELOPER [facility] Blood BLOOD SPECIMEN / Unknown Venipuncture / Unknown 04/24/2024 4:57 AM CONFIGURATION DEVELOPER 04/24/2024 5:01 AM CONFIGURATION DEVELOPER Jose Price MD LAB - BLOOD ORDER MENDEZ Final Result [facility] Acute Care Lab [address] Lab (1st floor, no room number) [place] [address], [facility] * Extra Blue Top Tube (04/24/2024 4:57 AM CONFIGURATION DEVELOPER) Hold Specimen [facility] 04/24/2024 6:06 AM CONFIGURATION DEVELOPER [facility] Blood BLOOD SPECIMEN / Unknown Venipuncture / Unknown 04/24/2024 4:57 AM CONFIGURATION DEVELOPER 04/24/2024 5:01 AM CONFIGURATION DEVELOPER Jose Price MD LAB - BLOOD ORDER MENDEZ Final Result [facility] Acute Care Lab [address] Lab (1st floor, no room number) [place] [address], [facility] * Troponin T, High Sensitivity (04/24/2024 4:57 AM CONFIGURATION DEVELOPER) Troponin T, High Sensitivity <6 <=14 ng/L 04/24/2024 5:26 AM CONFIGURATION DEVELOPER LABORATORY Comment: Either a High Sensitivity Troponin [...] Unknown Venipuncture / Unknown 04/24/2024 4:57 AM CONFIGURATION DEVELOPER 04/24/2024 5:01 AM CONFIGURATION DEVELOPER Jose Price MD LAB - BLOOD ORDER MENDEZ Final Result Performing Organization Address City/[facility]/ZIP Co de Phone Number [facility] Lab [address] Lab (1st floor, no room number) [place] [address], [facility] * (ABNORMAL) Basic metabolic panel (04/24/2024 4:57 AM CONFIGURATION DEVELOPER) Sodium 138 135 - 145 mmol/L 04/24/2024 5:26 AM CONFIGURATION DEVELOPER LABORATORY Potassium 4.4 3.4 - 5.3 mmol/L 04/24/2024 5:26 AM CONFIGURATION DEVELOPER LABORATORY Chloride 102 98 - 107 mmol/L 04/24/2024 5:26 AM CONFIGURATION DEVELOPER LABORATORY Carbon Dioxide (CO2) 22 22 - 29 mmol/L 04/24/2024 5:26 AM [facility] Anion Gap 14 7 - 15 mmol/L 04/24/2024 5:26 AM [facility] Urea Nitrogen 9.9 6.0 - 20.0 mg/dL 04/24/2024 5:26 AM [facility] Creatinine 0.61 0.51 - 0.95 mg/dL 04/24/2024 5:26 AM [facility] GFR Estimate >90 >60 mL/min/1.7 3m2 04/24/2024 5:26 AM [facility] Comment:eGFR calculated usin 2020 CKD-EPI equation. Calcium 9.3 8.8 - 10.4 mg/dL 04/24/2024 5:26 AM [facility] Comment:Reference intervals for this test were updated on 10/31/2023 to reflect our healthy population more accurately. There may be differences in the flagging of prior results with similar values performed with this method. Those prior results can be interpreted in the context of the updated reference intervals. Glucose 100(H) 70 - 99 mg/dL 04/24/2024 5:26 AM [facility] Blood BLOOD SPECIMEN / Unknown Venipuncture / Unknown 04/24/2024 4:57 AM CONFIGURATION DEVELOPER 04/24/2024 5:01 AM [facility] us Jose Price MD LAB - BLOOD ORDER MENDEZ Final Result LABORATORY [facility] Acute Care Lab [address] Lab (1st floor, no room number) [place] [address] * EKG 12-lead, tracing only (04/24/2024 4:35 AM CONFIGURATION DEVELOPER) Systolic Blood Pressure mmHg RADIOLOGY RESULTS Diastolic Blood Pressure mmHg RADIOLOGY RESULTS Ventricular Rate 85 BPM RAD IOLOGY RESULTS Atrial Rate 85 BPM RADIOLOG Y RESULTS [place] Interval 152 ms RADIOLOG Y RESULTS QRS Duration 76 ms RADIOLO GY RESULTS QT 344 ms RADIOLOGY RESULTS QTc 409 ms RADIOLOGY RESULTS P [place] 12 degrees RADIOLOGY RESULTS R AXIS 39 degrees RADIOLOGY RESULTS T [place] 18 degrees RADIOLOGY RESULTS Interpretation ECG Sinus rhythm Normal ECG When compared with ECG of 05-Jan-2024 01:13, Vent. rate has increased by 33 bpm Unconfirmed report - interpretation of this ECG is computer generated - see medical record for final interpretation Confirmed by - EMERGENCY ROOM, PHYSICIAN ([id number]), newspaper managing editor YEISON LAU ([id number]) on 04/24/2024 6:37:23 AM RADIOLOGY RESULTS 04/24/2024 4:35 AM CONFIGURATION DEVELOPER 04/24/2024 6:37 AM CONFIGURATION DEVELOPER Jose Price MD ECG ORDERABLES E dited Result - Final RADIOLOGY RESULTS * (ABNORMAL) HPV High Risk Types DNA Cervical (03/28/2018 9:20 AM CONFIGURATION DEVELOPER) HPV Source [facility] 04/03/2018 7:38 AM CONFIGURATION DEVELOPER [facility] HPV 16 DNA Negative NEG^Nega tive 04/03/2018 4:18 PM CONFIGURATION DEVELOPER [facility] HPV 18 DNA Negative NEG^Nega tive 04/03/2018 4:18 PM [facility] Other HR HPV Positive(A) NEG^Nega tive 04/03/2018 4:18 PM CONFIGURATION DEVELOPER [facility] Final Diagnosis This patient's sample is positive for other HR HPV DNA (types 31, 33, 35, 39, 45, 51, 52, 56, 58, 59, 66 or 68), not HPV 16 or HPV 18 DNA. This result requires clinical correlation with concurrent cytology findings. 04/03/2018 4:18 PM [facility] Comment: This test was developed and its performance characteristics determined by the [facility], Molecular Diagnostics Laboratory. It has not [...] Specimen Description Cervical Cells 04/03/2018 7:38 AM CONFIGURATION DEVELOPER [facility] Comment:[id number] 03/28/2018 9:20 AM CONFIGURATION DEVELOPER 03/28/2018 2:56 PM CONFIGURATION DEVELOPER us Tristen Spann FINANCE ACCOUNTING INTERNSH[employer] PRODUCT MARKETING DIRECTOR LAB - BLOOD ORDERABL ES Final Result [facility] [address] [place] [address] * (ABNORMAL) Pap imaged thin layer screen reflex to HPV if ASCUS - recommend age 25 - 29 (03/28/2018 9:09 AM CONFIGURATION DEVELOPER) PAP ASC-US(A) JOSE JUAN Singh Report Patient Name: MADI YANG MR#: [id number] Specimen #: [id number] Collected: 03/28/2018 Received: 03/29/2018 Reported: 04/02/2018 14:41 [...] Processed and screened at [facility] HISTORY: LMP: 03/05/2018 A previous normal pap Date of Last Pap: 01/01/2015, Papanicolaou Test Limitations: Cervical cytology is a screening test with limited sensitivity; regular screening is critical for cancer prevention; Pap tests are primarily effective for the diagnosis/preventi on of squamous cell carcinoma, not adenocarcinomas or other cancers. TESTING LAB LOCATION: [facility] [address] [place] [address] COLLECTION SITE: Client: [facility] Location: RIIM (R) [facility] Cytologic material (specimen) 03/28/2018 9:09 AM CONFIGURATION DEVELOPER 03/29/2018 11:25 AM CONFIGURATION DEVELOPER us Tristen Spann FINANCE ACCOUNTING INTERNSHIP PRODUCT MARKETING DIRECTOR LAB - [facility] SPECIMEN Final Result [facility] * HIV Antigen Antibody Combo (05/05/2016 9:51 AM CONFIGURATION DEVELOPER) HIV Antigen Antibody Combo Nonreactive HIV-1 p24 Ag & HIV-1/HIV-2 Ab Not Detected NR [facility] Blood specimen (specimen) 05/05/2016 9:51 AM CONFIGURATION DEVELOPER 05/05/2016 9:56 AM CONFIGURATION DEVELOPER us Madelaine Micthell DO LAB - BLOOD ORDERABLES Fi nal Result Performing Organization Address City/[facility]/ZIP Co de Phone Number [facility] [address] from Last 3 Months or Most Recently Relevant to Health Maintenance Insurance [facility] OUT [facility] STATE BCBS OUT OF STATE BCBS OUT OF STATE Care Teams Yield Analyst Relationship Specialty Start Date End Date [facility], [address] [address] PCP - General 11/28/23 Madelaine Mitchell DO caramel cutter helper 07/26/16 Francesco Merritt MD [address] [place] [address] Family Medicine - Sports Medicine 12/14/18 Gabe Carl MD [address] [facility] [address] [address] Assigned PCP 05/09/21 Madelaine Mitchell DO [address] [facility] [address] [place] [address] Assigned OBGYN Provider 03/09/24
--- OUTSIDE RECORDS SUMMARY | 2024-05-23 10:32 | XMS_ITS | Encounter Summary ---
Author Organization [facility] Address [address] [place] [address] Care Team Providers Care Hotel Front Office Manager Name Role Phone Madelaine Mitchell DO Unavailable [phone] Francesco Merritt MD Unavailable [phone] Gabe Carl MD Unavailable [phone] [place] [address] Primary Care Provider Madelaine Mitchell DO Unavailable [phone] Encounter Details Date Type Department Care Team (Latest Contact Info) Description 04/24/2024 Travel Social History Tobacco Use Types Packs/Day [...] Out COVID-19 04/24/2024 04/24/2024 04/24/2024 6:06 AM BLUEPRINT READER Assessment Noted Time PHQ-9 Depression Total Score: 21 023 10:16 AM CDT documented as of this encounter Care Teams Hotel Front Office Manager Relationship Specialty Start Date End Date Clinic, [address] [id number] PCP - General 11/28/23 Madelaine Mitchell DO [email or web address] 07/26/16 Francesco Merritt MD [address] [facility] [address] [place] [address] Family Medicine - Sports Medicine 12/14/18 Gabe Carl MD [address] [facility] [address] [address] Assigned PCP 05/09/21 Madelaine Mitchell DO [address] [facility] [address] [place] [address] Assigned OBGYN Provider 03/09/24 documented as of this encounter
[2024-05-23 10:40] VITALS: BP 152/116; PULSE 90; RESP 18; TEMP 36.2; O2SAT 97; BMI 32.8
--- NOTE | 2024-05-23 10:55 | ED_ITS ---
HPI - General Adult General Chief complaint: Alcohol/Intoxication Stated complaint: alcohol withdrawal Time Seen by Provider: 05/23/24 10:28 History of Present Illness HPI narrative: This 33-year-old female comes in stating she has withdrawal symptoms from alcohol. She states that she had been sober for about a month until 5 days ago where she began drinking daily. Her last drink was last evening. She states that she took 2 tablets of diazepam and 3 tablets of Ativan today but this is not helped her at all. She has not had seizure or other complication in the past. She states that she is taking Ativan 1-2 tablets as needed per day. She denies taking Ativan at the same time she was taking alcohol. She is pacing in the room but does not appear tremulous. Related Data Home Medications ?Medication ?Instructions ?Recorded ?Confirmed clonidine HCl 0.1 mg tablet 0.1 mg PO DAILY PRN 03/28/24 04/04/24 Previous Rx's ?Medication ?Instructions ?Recorded metformin 500 mg tablet 1,000 mg (2 x 500 mg) PO BID #360 09/26/23 tabs fluticasone propionate 50 1 spray intranasal BID #16 grams 01/23/24 mcg/actuation nasal spray,suspension metoprolol succinate 25 mg 25 mg PO QDAY #30 tabs 03/29/24 tablet,extended release 24 hr lorazepam 0.5 mg tablet 0.5 mg PO BID PRN anxiety #60 tabs 04/01/24 lorazepam 1 mg tablet (Ativan) 1 mg PO BID PRN #5 tabs 05/23/24 Allergies Allergy/AdvReac Type Severity Reaction Status Date / Time polymyxin B Allergy Severe Swelling Verified 05/23/24 10:38 trimethoprim Allergy Severe Swelling Verified 05/23/24 10:38 chlordiazepoxide Allergy Intermediate Swelling Verified 05/23/24 10:38 of Lip/Tongue/Throat Sulfa (Sulfonamide Allergy Mild Swelling Verified 05/23/24 10:38 Antibiotics) Review of Systems Status of ROS: Reports: 10 or more systems reviewed and unremarkable except as noted in History and below Narrative: Constitutional: No fevers, no weight gain or loss. Eyes: No discharge. No vision changes. HENT: No congestion, no sore throat, no ear pain. Cardiovascular: No chest pain, no palpitations. Respiratory: No shortness of breath, no wheezes, no cough. Gastrointestinal: No abdominal pain, no vomiting, no diarrhea. Genitourinary: No dysuria, no hematuria. Musculoskeletal: Normal range of motion. Skin: No rashes, no pruritis. Neurological: No dizziness, weakness, sensory change, speech change. Endo/Heme/Allergies: No bruising or bleeding. No polydipsia. Pysch: no suicidality, no insomnia. Anxiety due to withdrawal. All other systems reviewed and are negative. [facility] Medical History (Updated 05/23/24 @ 11:55 by Pedro Zarco MD) Alcohol abuse ?F10.10 - Alcohol abuse, uncomplicated (ICD-10) Primary cancer of right middle lobe of lung ?C34.2 - Malignant neoplasm of middle lobe, bronchus or lung (ICD-10) Lump of right breast ?N63.10 - Unspecified lump in the right breast, unspecified quadrant (ICD-10) Allergic rhinitis ?J30.9 - Allergic rhinitis, unspecified (ICD-10) Atypical mole ?D22.9 - Melanocytic nevi, unspecified (ICD-10) Paresthesia of left arm ?R20.2 - Paresthesia of skin (ICD-10) Pituitary adenoma ?D35.2 - Benign neoplasm of pituitary gland (ICD-10) Obesity ?E66.9 - Obesity, unspecified (ICD-10) Abnormal cervical Papanicolaou smear (2019) ?R87.619 - Unspecified abnormal cytological findings in specimens from cervix uteri (ICD-10) Insomnia ?G47.00 - Insomnia, unspecified (ICD-10) Anxiety ?F41.9 - Anxiety disorder, unspecified (ICD-10) Depression ?F32.A - Depression, unspecified (ICD-10) Polycystic ovary syndrome ?E28.2 - Polycystic ovarian syndrome (ICD-10) Gestational hypertension ?O13.9 - Gestational [-induced] hypertension without significant proteinuria, unspecified trimester (ICD-10) Erosive gastritis ?K29.60 - Other gastritis without bleeding (ICD-10) Alcohol withdrawal syndrome ?F10.239 - Alcohol dependence with withdrawal, unspecified (ICD-10) Surgical History S/P thoracotomy ?Z98.890 - Other specified postprocedural states (ICD-10) Status post delivery (2016) ?Z98.891 - History of uterine scar from previous surgery (ICD-10) History of left knee surgery ?Z98.890 - Other specified postprocedural states (ICD-10) History of laser assisted in situ keratomileusis (2009) ?Z98.890 - Other specified postprocedural states (ICD-10) History of knee surgery (2016) ?Z98.890 - Other specified postprocedural states (ICD-10) History of colposcopy (2019) ?Z98.890 - Other specified postprocedural states (ICD-10) History of colonoscopy ?Z98.890 - Other specified postprocedural states (ICD-10) Family History Aunt Breast cancer Depression Other Kidney disease Prostate cancer Social History Narrative: , works in [employer], 2 kids Exercises 3/week (walk/run) Non-smoker- quiet 2015, hx of 8 years on and off smoking Social drinker (1/week) What is your current living situation?: I presently have a place to live Problems where you live: no known problems In the past 12 months, utilities in danger of being shut off: no In past 12 months, lack of transportation kept you from medical appts, meetings, work, or getting things needed for daily living: no In the past 12 mos, have been you worried that your food would run out before you had money to buy more?: sometimes true In the past 12 mos, the food you bought just didn't last and you didn't have money to buy more?: never true Physical activity type: none Smoking Status: Former smoker Do you use any of these nicotine containing products: None Second hand tobacco smoke exposure: No How often do you have a drink containing alcohol: 2-3 times a week How often do you have six or more drinks on one occasion: Never AUDIT-C Alcohol total score: 3 Non-prescribed substance use: denies use Are you now , , , , never or living with a partner: Social isolation score (0-1 are the most socially isolated patients): 1 How often does anyone, including family, friends and others, physically hurt you : never How often does anyone, including family, friends and others, insult or talk down to you: never How often does anyone, including family, friends and others, threaten you with harm: never How often does anyone, including family, friends and others, scream or curse at you: never Gender Identity: female Are you currently sexually active: Yes Health Related Social Needs: food insecurity (Z59.41) Exam Narrative: Exam Narrative: Constitutional: Well-developed, well-nourished. HEENT: Normocephalic, atraumatic. Neck: Normal range of motion. Nontender. Supple. Heart: Regular. No murmurs. Normal rate. Intact distal pulses. Lungs: Clear to auscultation. No chest discomfort. No wheezes, rhonchi, or rales. Abdomen: Normal bowel sounds. Nontender. No rebound tenderness. Genitalia: Deferred. Back: No midline tenderness. Normal range of motion. Extremities: Normal range of motion. No injury. Skin: Intact. No rash. Warm. No erythema or pallor. Neurologic: No altered sensation. No weakness. Alert and oriented. No tremors. Psychiatric: No suicidality. No depression. No insomnia. She appears anxious with pacing in the room. Nursing notes and vitals signs are reviewed. Const: Vital Signs, click to edit/add: Vital Signs - 24 hr 05/23/24 10:40 Temperature 97.2 F L Pulse Rate [Left P ulse Oximeter] 90 Respiratory Rate 18 Blood Pressure [Ri ght Upper Arm] 152/116 H Pulse Oximetry 97 Oxygen Delivery Me thod Room Air Course Vital Signs Vital signs: Initial Vital Signs Temperature 97.2 F L 05/23/24 10:40 Temperature Source Temporal Artery Scan 05/23/24 10:40 Pulse Rate 90 05/23/24 10:40 Pulse Rhythm Regular 05/23/24 10:40 Respiratory Rate 18 05/23/24 10:40 Blood Pressure 152/116 H 05/23/24 10:40 Blood Pressure Mean 128 H 05/23/24 10:40 Blood Pressure Position Supine 05/23/24 10:40 Pulse Oximetry 97 05/23/24 10:40 Oxygen Delivery Method Room Air 05/23/24 10:40 Vital Signs Temperature 97.2 F L 05/23/24 10:40 Pulse Rate 90 05/23/24 10:40 Respiratory Rate 18 05/23/24 10:40 Blood Pressure 152/116 H 05/23/24 10:40 Pulse Oximetry 97 05/23/24 10:40 Oxygen Delivery Method Room Air 05/23/24 10:40 Temperature 97.2 F L 05/23/24 10:40 Pulse Rate 90 05/23/24 10:40 Respiratory Rate 18 05/23/24 10:40 Blood Pressure 152/116 H 05/23/24 10:40 Pulse Oximetry 97 05/23/24 10:40 Oxygen Delivery Method Room Air 05/23/24 10:40 Medications Administered Medications: Discontinued Medications Generic Name Dose Route Start Last Admin Trade Name Hawa PRN Reason Stop Dose Admin Lorazepam 2 mg 05/23/24 10:54 05/23/24 11:11 Lorazepam 1 Mg Tablet PO 05/23/24 10:55 2 mg ONCE ONE Administration Medical Decision Making MDM Narrative Medical decision making narrative: This patient comes in stating that she feels anxious after stopping alcohol where her last drink was yesterday. She had been taking alcohol daily for about 5 days. Prior to this she was taking Ativan and reports that she did not take any Ativan while using alcohol. She is not tremulous but could be withdrawing from either or both of these. The patient states that she has an appointment with her primary physician tomorrow. She has been checking in and considering some detox or treatment options. The patient did receive an oral dose of Ativan 2 mg here and states that she is feeling better. Her is with her and they preferred to return home. I did provide a prescription for 5 tablets of Ativan 1 mg to help her until her appointment tomorrow. She understands we will not refill this out of the emergency department. Discharge Plan Discharge Clinical Impression: Alcohol abuse, Anxiety Patient Disposition: Home w/ Parent or Adult Condition: Stable Additional Instructions: Take medication as needed and indicated. Follow-up with primary physician tomorrow as scheduled. Return if worsening. Prescriptions: New lorazepam [Ativan] 1 mg tablet 1 mg PO BID PRNQty: 5 0RF No Action clonidine HCl 0.1 mg tablet 0.1 mg PO DAILY PRN metformin 500 mg tablet 1,000 mg PO BID Qty: 360 3RF fluticasone propionate 50 mcg/actuation spray,suspension 1 spray intranasal BID Qty: 16 10RF Rx Instructions: administer into each nostril metoprolol succinate 25 mg tablet extended release 24 hr 25 mg PO QDAY Qty: 30 2RF lorazepam 0.5 mg tablet 0.5 mg PO BID PRN (Reason: anxiety) Qty: 60 0RF Follow Up/Referrals: Pedro Boudreaux MD [Primary Care Provider] - Stand Alone [facility]
--- OUTSIDE RECORDS SUMMARY | 2024-05-23 11:08 | XMS_ITS | Encounter Summary ---
Author Organization [facility] Address [address] [place] [address] Care Team Providers Care Vice President Digital Strategist Name Role Phone Madelaine Mitchell DO Unavailable [phone] Rosamaria Jones MD Primary Care Provider UnavailFrancesco Andrea MD Unavailable [phone] Elaina Jiang APRN [facility] Unavailable [phone] Rosamaria Jones MD Unavailable Unavailable Gabe Carl MD Unavailable [phone] Danielle Alcantar MD Unavailable [facility] Primary Care Provider Madelaine Mitchell DO Unavailable [phone] Encounter Details Date Type Department Care Team [...] COVID-19? No / Unsure 03/31/2021 6:25 AM COCONUT JELLY ROLLER documented as of this encounter Plan of Treatment Not on file documented as of this encounter Visit Diagnoses Not on filedocumented in this encounter Additional Health Concerns Infection Onset Date Last Indicated Resolved Time Rule Out COVID-19 03/31/2021 03/31/2021 03/31/2021 7:10 AM COCONUT JELLY ROLLER Rule Out COVID-19 09/15/2022 09/15/2022 09/15/2022 9:15 AM CDT Rule Out COVID-19 04/24/2024 04/24/2024 04/24/2024 6:06 AM COCONUT JELLY ROLLER Assessment Noted Time PHQ-9 Depression Total Score: 10 019 7:03 AM CDT documented as of this encounter Care Teams Vice President Digital Strategist Relationship Specialty Start Date End Date Rosamaria Jones MD PCP - General Internal Medicine 10/06/18 11/27/[address] [address] PCP - General 11/28/23 Madelaine Mitchell DO comb winder 07/26/16 Francesco Merritt MD [facility] [address] [id number] Family Medicine - Sports Medicine 12/14/18 Elaina Jiang APRN YOUTH TEACHER [address] [place], [place] [id number] Assigned PCP 10/27/19 04/03/21 Rosamaria Jones MD INACTIVE IN [place] 03/16/2024 Assigned PCP 04/04/21 05/08/21 [place] [address] [place] [address] VINICI[place] MANNING [address] Assigned PCP 05/09/21 Danielle Alcantar MD [address] [place] [address] Assigned Musculoskeletal Provider 07/18/21 02/03/23 Madelaine Mitchell DO [facility] [address] [address] Assigned OBGYN Provider 03/09/24 documented as of this encounter
--- OUTSIDE RECORDS SUMMARY | 2024-05-23 11:08 | XMS_ITS | Encounter Summary ---
Author Organization [facility] Address [address] [place] [address]. [place] [address] Care Team Providers Care Electronic Engineering Draftsperson Name Role Phone Madelaine Mitchell DO Unavailable Francesco Merritt MD Unavailable [phone] Gabe Carl MD Unavailable [phone] [place] [address] [facility] Primary Care Provider Madelaine Mitchell DO Unavailable Encounter Details Date Type Department Care Team (Late st Contact Info) Description 01/30/2024 MyC Medical Advice [facility] Women[facility] [address] [place] [phone] Madelaine Mitchell DO [address] [place] [address] Social History Tobacco Use Types Packs/Day Years [...] to schedule next week. Marcella Arce RN [facility] * Telephone Encounter - Madelaine Mitchell DO - 01/31/2024 4:53 PM CDT Ok to add sooner, ok to double book. Usually works well to double book at physical slot .Dr. Madelaine Mitchell DO Obstetrics and Gynecology [facility] * Telephone Encounter - Grisel Catalan RN - 01/31/2024 8:30 AM CDT Please address the my chart message. Re: appedith Catalan RN documented in this encounter Plan of Treatment Not on file documented as of this encounter Visit Diagnoses Not on filedocumented in this encounter Additional Health Concerns Infection Onset Date Last Indicated Resolved Time Rule Out COVID-19 04/24/2024 04/24/2024 04/24/2024 6:06 AM BLEACH MAKER Assessment Noted Time PHQ-9 Depression Total Score: 21 023 10:16 AM CDT documented as of this encounter Care Teams Electronic Engineering Draftsperson Relationship Specialty Start Date End Date [facility], [address] [address] PCP - General 11/28/23 Madelaine Mitchell DO caustic cresylate shift superintendent 07/26/16 Francesco Merritt MD [address] [place] [address] Family Medicine - Sports Medicine 12/14/18 Gabe Carl MD [address] [facility] VINICIUS MANNING [address] Assigned PCP 05/09/21 Madelaine Mitchell DO [address] [place] [address] Assigned OBGYN Provider 03/09/24 documented as of this encounter
--- OUTSIDE RECORDS SUMMARY | 2024-05-23 11:08 | XMS_ITS | Encounter Summary ---
Author Organization [facility] Address [address] [place] [address] Care Team Providers Care Police Crime Scene Technician Name Role Phone Madelaine Mitchell DO Unavailable [phone] Rosamaria Jones MD Primary Care Provider Unavaillulu e Francesco Merritt MD Unavailable Loyda Farmer MD Unavailable [phone] CreElaina morales APRN [facility] Unavailable [phone] Rosamaria Jones MD Unavailable Unavailable Gabe Carl MD Unavailable [phone] Danielle Alcantar MD Unavailable [facility] Primary Care Provider Madelaine Mitchell DO Unavailable Reason for Visit * Reason Comments Medication Refill Encounter Details Date Type Department Care Team (Late st Contact Info) Description 10/13/[address] [address] Madelaine Mitchell DO [address] [facility] [address] [place] [address] Medication Refill Social History Tobacco Use Types [...] Out COVID-19 03/31/2021 03/31/2021 03/31/2021 7:10 AM ENROLLMENT MANAGER Rule Out COVID-19 09/15/2022 09/15/2022 09/15/2022 9:15 AM CDT Rule Out COVID-19 04/24/2024 04/24/2024 04/24/2024 6:06 AM ENROLLMENT MANAGER Assessment Noted Time PHQ-9 Depression Total Score: 10 019 7:03 AM CDT documented as of this encounter Care Teams Police Crime Scene Technician Relationship Specialty Start Date End Date Rosamaria Jones MD PCP - General Internal Medicine 10/06/18 11/27/[address] [address] PCP - General 11/28/23 Madelaine Mitchell DO boiler shop supervisor 07/26/16 Francesco Merritt MD [facility] [id number] [place] [address] Family Medicine - Sports Medicine 12/14/18 Loyda Farmer MD [address] [place] [address] Assigned PCP 09/29/19 10/26/19 Elaina Jiang APRN CNP [address] [place] [address] Assigned PCP 10/27/19 04/03/21 Rosamaria Jones MD INACTIVE IN [place] 03/16/2024 Assigned PCP 04/04/21 05/08/21 Gabe Carl MD [address] [place] [address] Assigned PCP 05/09/21 Danielle Alcantar MD [address] [place] [address] Assigned Musculoskeletal Provider 07/18/21 02/03/23 Madelaine Mitchell DO [address] [facility] [address] [place] [address] Assigned OBGYN Provider 03/09/24 documented as of this encounter
--- OUTSIDE RECORDS SUMMARY | 2024-05-23 11:08 | XMS_ITS | Encounter Summary ---
Author Organization [facility] Address [address] [place] [address] Care Team Providers Care Meat Clerk Name Role Phone Madelaine Mitchell DO Unavailable Rosamaria Jones MD Primary Care Provider UnavailFrancesco Andrea MD Unavailable Loyda Farmer MD Unavailable CreElaina morales APRN [employer] Unavailable [phone] Rosamaria Jones MD Unavailable Unavailable Gabe Carl MD Unavailable [phone] Danielle Alcantar MD Unavailable [phone] [facility] Primary Care Provider Madelaine Mitchell DO Unavailable [phone] Encounter Details Date Type Department Care Team (Late st Contact Info) Description 10/22/2019 MyC Medical Advice [facility] [address] [place] [address] Queta Lisa, RN Social History [...] COVID-19 03/31/2021 03/31/2021 03/31/2021 7:10 AM RN TRAINING Rule Out COVID-19 09/15/2022 09/15/2022 09/15/2022 9:15 AM CDT Rule Out COVID-19 04/24/2024 04/24/2024 04/24/2024 6:06 AM RN TRAINING Assessment Noted Time PHQ-9 Depression Total Score: 10 019 7:03 AM CDT documented as of this encounter Care Teams Meat Clerk Relationship Specialty Start Date End Date Rosamaria Jones MD PCP - General Internal Medicine 10/06/18 11/27/[address] [address] PCP - General 11/28/23 Madelaine Mitchell DO columnist 07/26/16 Francesco Merritt MD [id number] [place] [address] Family Medicine - Sports Medicine 12/14/18 Loyda Farmer MD [address] [place], [place] [address] Assigned PCP 09/29/19 10/26/19 Elaina Jiang APRN CNP [address] [place] [address] Assigned PCP 10/27/19 04/03/21 Rosamaria Jones MD INACTIVE IN [place] 03/16/2024 Assigned PCP 04/04/21 05/08/21 Gabe Carl MD [address] [facility] [place] [address] Assigned PCP 05/09/21 Danielle Alcantar MD [address] [place] [address] Assigned Musculoskeletal Provider 07/18/21 02/03/23 Madelaine Mitchell DO [address] [facility] [address] [place] [address] Assigned OBGYN Provider 03/09/24 documented as of this encounter
--- OUTSIDE RECORDS SUMMARY | 2024-05-23 11:08 | XMS_ITS | Clinical Summary ---
Author Organization [facility] Address [address] [place] [address] Care Team Providers Care Director Physical Therapy Name Role Phone Rosamaria Jones MD Primary Care Provider [phone] Source Comments You are receiving this document as you are listed as the primary care provider,follow-up provider, or the patient has been referred to you for consultation.This is in compliance with the Medicare andDunlap Memorial Hospitalcaid EHR Incentive Program,which states Providers who transition their patient to another setting of careor provider of care or refers their patient to another provider of care shouldprovide summary care record for each transition of care or referral. [employer] Allergies Active Allergy Reactions Criticality Noted Date [...] Comments Blood Pressure 123/75 06/15/2016 11:56 AM SAMPLE CHECKER Pulse 104 06/15/2016 11:56 AM SAMPLE CHECKER Temperature 36.7 C (98.1 F) 06/15/2016 11:56 AM SAMPLE CHECKER Respiratory Rate 20 06/15/2016 11:56 AM SAMPLE CHECKER Oxygen Saturation 98% 06/15/2016 11:56 AM SAMPLE CHECKER Inhaled Oxygen Concentration - - Weight 86.2 [...] age to complete this topic Care Teams Director Physical Therapy Relationship Specialty Start Date End Date Rosamaria Jones MD [address] [place], [place] [address] PCP - General 11/10/15
--- OUTSIDE RECORDS SUMMARY | 2024-05-23 11:08 | XMS_ITS | Encounter Summary ---
Author Organization [facility] Address [address] [place] [address] Care Team Providers Care Production Utility Worker Name Role Phone Madelaine Mitchell DO Unavailable Rosamaria Jones MD Primary Care Provider Unavailabl e Francesco Merritt MD Unavailable [phone] Gabe Carl MD Unavailable [phone] Danielle Alcantar MD Unavailable [phone] [facility] Primary Care Provider Madelaine Mitchell DO Unavailable Encounter Details Date Type Department Care Team (Late st Contact Info) Description 07/11/2021 MyC Medical Advice [facility] Women's [facility] [address] [place] [address] Madelaine Mitchell DO [address] [place] [address] Social History Tobacco Use Types Packs/Day Years [...] Out COVID-19 04/24/2024 04/24/2024 04/24/2024 6:06 AM CIS COORDINATOR Assessment Noted Time PHQ-9 Depression Total Score: 10 022 9:03 AM CIS COORDINATOR documented as of this encounter Care Teams Production Utility Worker Relationship Specialty Start Date End Date Rosamaria Jones MD PCP - General Internal Medicine 10/06/18 11/27/[address] [address] PCP - General 11/28/23 Madelaine Mitchell DO probation officer 07/26/16 Francesco Merritt MD [address] [place] [address]1504 Family Medicine - Sports Medicine 12/14/18 Gabe Carl MD [address] [place] [address] [place] [address] Assigned PCP 05/09/21 Danielle Alcantar MD [address] [place] [address] 845705 Assigned Musculoskeletal Provider 07/18/21 02/03/23 Madelaine Mitchell DO [address] 3775[address] Assigned OBGYN Provider 03/09/24 documented as of this encounter
--- OUTSIDE RECORDS SUMMARY | 2024-05-23 11:08 | XMS_ITS | Encounter Summary ---
Author Organization [place] Address [address] [place] [address] Care Team Providers Care Manager Investigations Name Role Phone Madelaine Mitchell DO Unavailable Rosamaria Jones MD Primary Care Provider UnavailFrancesco Andrea MD Unavailable Elaina Jiang APRN [facility] Unavailable [phone] Rosamaria Jones MD Unavailable Unavailable Gabe Carl MD Unavailable [phone] Danielle Alcantar MD Unavailable [phone] [facility] Primary Care Provider Madelaine Mitchell DO Unavailable Encounter Details Date Type Department Care Team (Late st Contact Info) Description 03/14/2021 MyC Medical Advice [facility] Women's [facility] [address] [place] [phone] Madelaine Mitchell DO [address] [place], [place] [address] Anovulation (Primary Dx) Social History Tobacco Use [...] the my chart message. Clif Catalan RN L MACHINE OPERATOR documented in this encounter Plan of Treatment Not on file documented as of this encounter Visit Diagnoses Diagnosis Anovulation- Primary Female infertility associated with anovulation documented in this encounter Additional Health Concerns Infection Onset Date Last Indicated Resolved Time Rule Out COVID-19 03/31/2021 03/31/2021 03/31/2021 7:10 AM SHELL MACHINE OPERATOR Rule Out COVID-19 09/15/2022 09/15/2022 09/15/2022 9:15 AM CDT Rule Out COVID-19 04/24/2024 04/24/2024 04/24/2024 6:06 AM SHELL MACHINE OPERATOR Assessment Noted Time PHQ-9 Depression Total Score: 10 019 7:03 AM CDT documented as of this encounter Care Teams Manager Investigations Relationship Specialty Start Date End Date Rosamaria Jones MD PCP - General Internal Medicine 10/06/18 11/27/[address] [address] PCP - General 11/28/23 Madelaine Mitchell DO intermediate project manager 07/26/16 Francesco Merritt MD [facility] [place], [place] [id number] [place] [address] Family Medicine - Sports Medicine 12/14/18 Elaina Jiang APRN GRADUATE ADVISOR [address] [place] [address] Assigned PCP 10/27/19 04/03/21 Rosamaria Jones MD INACTIVE IN [place] 03/16/2024 Assigned PCP 04/04/21 05/08/21 [place] [address] [place] [address] [place] [address] Assigned PCP 05/09/21 Danielle Alcantar MD [address] [place] [address] Assigned Musculoskeletal Provider 07/18/21 02/03/23 Madelaine Mitchell DO [address] [address] Assigned OBGYN Provider 03/09/24 documented as of this encounter
--- OUTSIDE RECORDS SUMMARY | 2024-05-23 11:08 | XMS_ITS | Encounter Summary ---
Author Organization [place] Address [address] [place] [address] Care Team Providers Care Road Patcher Name Role Phone Madelaine Mitchell DO Unavailable Rosamaria Jones MD Primary Care Provider UnavailFrancesco Andrea MD Unavailable [phone] Elaina Jiang APRN [facility] Unavailable [phone] Rosamaria Jones MD Unavailable Unavailable Gabe Carl MD Unavailable [phone] Danielle Alcantar MD Unavailable [facility] Primary Care Provider Madelaine Mitchell DO Unavailable Encounter Details Date Type Department Care Team (Late st Contact Info) Description 07/10/2020 MyC Medical Advice [facility] Women's [facility] [address] [place] [phone] Madelaine Mitchell DO [address] [place] [address] Social History Tobacco Use Types [...] Out COVID-19 03/31/2021 03/31/2021 03/31/2021 7:10 AM CLIN ASST Rule Out COVID-19 09/15/2022 09/15/2022 09/15/2022 9:15 AM CDT Rule Out COVID-19 04/24/2024 04/24/2024 04/24/2024 6:06 AM CLIN ASST Assessment Noted Time PHQ-9 Depression Total Score: 10 019 7:03 AM CDT documented as of this encounter Care Teams Road Patcher Relationship Specialty Start Date End Date Rosamaria Jones MD PCP - General Internal Medicine 10/06/18 11/27/[address] [address] PCP - General 11/28/23 Madelaine Mitchell DO semiconductor packages leak tester 07/26/16 Francesco Merritt MD [address] [place] [address] Family Medicine - Sports Medicine 12/14/18 Elaina Jiang APRN CNP [facility] [address] [place], [place] [address] Assigned PCP 10/27/19 04/03/21 Rosamaria Jones MD INACTIVE IN [place] 03/16/2024 Assigned PCP 04/04/21 05/08/21 Gabe Carl MD [address] [facility] [place] [address] Assigned PCP 05/09/21 Danielle Alcantar MD [address] [place], [place] [address] Assigned Musculoskeletal Provider 07/18/21 02/03/23 Madelaine Mitchell DO [address] [facility] [address] [place], [place] [address] Assigned OBGYN Provider 03/09/24 documented as of this encounter
--- OUTSIDE RECORDS SUMMARY | 2024-05-23 11:09 | XMS_ITS | Encounter Summary ---
Author Organization [place] Address [address] [place] [address] Care Team Providers Care Satellite Dish Technician Name Role Phone Madelaine Mitchell DO Unavailable [phone] Francesco Merritt MD Unavailable Gabe Carl MD Unavailable [phone] [place] [address] Primary Care Provider Madelaine Mitchell DO Unavailable Reason for Visit * Reason Comments Medication Refill Encounter Details Date Type Department Care Team (Late st Contact Info) Description 05/03/2024 Refill [facility] Women's [place] [address] [place] [phone] Madelaine Mitchell DO [address] [place] [address] Medication Refill Social History Tobacco Use Types [...] to refill? Please advise? Marcella Arce RN [place] [facility] documented in this encounter Plan of Treatment Not on file documented as of this encounter Visit Diagnoses Diagnosis Anovulation Female infertility associated with anovulation documented in this encounter Additional Health Concerns Assessment Noted Time PHQ-9 Depression Total Score: 21 023 10:16 AM CDT documented as of this encounter Care Teams Satellite Dish Technician Relationship Specialty Start Date End Date [facility], [address] [id number] PCP - General 11/28/23 Madelaine Mitchell DO french polisher 07/26/16 Francesco Merritt MD [address] [place] [address] Family Medicine - Sports Medicine 12/14/18 Gabe Carl MD [address] [place] [address] VINICIUS MANNING [address] Assigned PCP 05/09/21 Madelaine Mitchell DO [address] [address] Assigned OBGYN Provider 03/09/24 documented as of this encounter
--- OUTSIDE RECORDS SUMMARY | 2024-05-23 11:09 | XMS_ITS | Encounter Summary ---
Author Organization [place] Address [address] [place] [address]. [place] [address] Care Team Providers Care Manager Biostatistics Name Role Phone Madelaine Mitchell DO Unavailable Francesco Merritt MD Unavailable Gabe Carl MD Unavailable [phone] [place] [address] Primary Care Provider Madelaine Mitchell DO Unavailable Reason for Visit * Reason Onset Date Comments Refill Request 03/27/2024 Encounter Details Date Type Department Care Team (Late st Contact Info) Description 03/27/2024 [facility] Women's [address] [place] [address] Madelaine Mitchell DO [address] [place] [address] Refill Request Social History Tobacco Use Types [...] to pt to confirm. Ruby Rubio RN PHYSICIAN INTERVENTIONAL CARDIOLOGIST [place] COT WASHER documented in this encounter Plan of Treatment Not on file documented as of this encounter Visit Diagnoses Diagnosis Anovulation Female infertility associated with anovulation documented in this encounter Additional Health Concerns Infection Onset Date Last Indicated Resolved Time Rule Out COVID-19 04/24/2024 04/24/2024 04/24/2024 6:06 AM APRICOT WASHER Assessment Noted Time PHQ-9 Depression Total Score: 21 023 10:16 AM CDT documented as of this encounter Care Teams Manager Biostatistics Relationship Specialty Start Date End Date [facility], [address] [address] PCP - General 11/28/23 Madelaine Mitchell DO land survey technician 07/26/16 Francesco Merritt MD [facility] [place] [address] Family Medicine - Sports Medicine 12/14/18 Gabe Carl MD [address] [facility] [place] [address] Assigned PCP 05/09/21 Madelaine Mitchell DO [address] [address] Assigned OBGYN Provider 03/09/24 documented as of this encounter
--- OUTSIDE RECORDS SUMMARY | 2024-05-23 11:09 | XMS_ITS | Encounter Summary ---
Author Organization [facility] Address [address] [place] [address]. [place] [address] Care Team Providers Care On Call Pharmacy Technician Name Role Phone Madelaine Mitchell DO Unavailable [phone] Francesco Merritt MD Unavailable [phone] Gabe Carl MD Unavailable [phone] [place] [address] Primary Care Provider Madelaine Mitchell DO Unavailable Reason for Visit * Reason Comments Drug / Alcohol Assessment Encounter Details Date Type Department Care Team (Late st Contact Info) Description 04/24/2024 4:35 AM HIDE DROPPER - 04/24/2024 6:56 AM [facility] Emergency [facility] Emergency Dept [address] [place] [address] Jose Price MD [facility] [address] [place] [address] Alcohol withdrawal syndrome without complication (H); Anxiety [...] Comments Blood Pressure 150/89 04/24/2024 6:56 AM HIDE DROPPER Pulse 85 04/24/2024 6:56 AM HIDE DROPPER Temperature 36.9 C (98.4 F) 04/24/2024 4:30 AM HIDE DROPPER Respiratory Rate 18 04/24/2024 6:56 AM HIDE DROPPER Oxygen Saturation 99% 04/24/2024 6:56 AM HIDE DROPPER Inhaled Oxygen Concentration - - Weight 90.7 kg (200 lb) 04/24/2024 4:30 AM HIDE DROPPER Height 165.1 cm (5' 5) 04/24/2024 4:30 AM HIDE DROPPER Body Mass Index 33.28 04/24/2024 4:30 AM HIDE DROPPER documented in this encounter Discharge Instructions * Discharge Instructions* Jose Price MD - 04/24/2024 6:48 AM HIDE DROPPER Please use the below resources and your primary care physician to safely cease alcohol and/or substance use. Return to the ED if you are having any urgent/life-threatening concerns. DISCHARGE RESOURCES: [facility] [phone] (detox), (outpatient& Lodging Plus) SMART Recovery - self management for addiction recovery: www.smartrecovery.org Pathways ~ A Health Crisis Resource & Support Center: [phone]. [facility] [phone] Substance Abuse and Mental Health Services (www.samhsa.gov) Harm Reduction Coalition (www.Harmreduction.org) [place] Opioid Prevention Coalition: www.opioidcoalition.org Poison control Sober Support Group Information: AA/NA & Sponsor/Support Alcoholics Anonymous (www.alcoholics-anonymous.org) AA Intergroup service office in [place] (http://www.aastpaul.org/) [phone] AA Intergroup service office in [facility]: [phone]. (http://www.a[place].org/) Secular AA (www.secularaa.org) Narcotics Anonymous (www.nam[place].org) Sober Fun Activities: www.sober-activities.[employer]/[facility]//[place] [facility] Connection ([facility]) [facility] connects people seeking recovery to resources that help foster and sustain long-term recovery. Whether you are seeking resources for treatment, transportation, housing, job training, education, health care or other pathways to recovery, [facility] is a great place to start. . www.alabamaPlaceword (Great listing of all types of recovery and non-recovery related resources)? DROPPER * Attachments The following attachments cannot be sent through Care Everywhere. * Alcohol Withdrawal: General Info (Ivorian) documented in this encounter Medications at Time of Discharge azelastine (ASTELIN) 0.1 % nasal sprayIndications: Post-nasal drip [place] 1 spray into both nostrils 2 times [...] muscle spasms 20 tablet 04/30/2021 nystatin (MYCOSTATIN) 719996 UNIT/ML suspension TAKE 6 ML BY MOUTH [...] 0516 Normal sinus rhythm Rate 85 bpm. OH interval 152 ms. QRS duration 76 ms. [...] above. Medical Decision Making / Diagnosis MDM Nead Moss is a 33 year old female [...] to me. Jose Price MD 04/24/24 0730 DROPPER * Chyna German RN - 04/24/2024 4:32 AM CST Presents with c/o chest heaviness for the past couple of hours with ureña and nausea. Feels anxious. States she feels like she is going to stroke out. Took clonidine for elevated HR. States HR was 150but down to 120 after clonidine DROPPER documented in this encounter Plan of Treatment Not on file documented as of this encounter Procedures Procedure Name Priority Date/Time Associated Diagnosis Comments CBC WITH PLATELETS AND DIFFERENTIAL STAT 04/24/2024 5:33 AM HIDE DROPPER CBC WITH PLATELETS & DIFFERENTIAL STAT 04/24/2024 5:33 AM HIDE DROPPER INFLUENZA A/B, RSV AND SARS-COV2 PCR STAT 04/24/2024 5:23 AM HIDE DROPPER XR CHEST 2 VIEWS STAT 04/24/2024 5:07 AM HIDE DROPPER EXTRA TUBE STAT 04/24/2024 4:57 AM HIDE DROPPER EXTRA RED TOP TUBE STAT 04/24/2024 4: 57 AM HIDE DROPPER EXTRA BLUE TOP TUBE STAT 04/24/2024 4 :57 AM HIDE DROPPER TROPONIN T, HIGH SENSITIVITY STAT 04/24/2024 4:57 AM HIDE DROPPER BASIC METABOLIC PANEL STAT 04/24/2024 4:57 AM HIDE DROPPER EKG 12-LEAD, TRACING ONLY STAT 04/24/2024 4:35 AM HIDE DROPPER documented in this encounter Results * CBC with platelets and differential (04/24/2024 5:33 AM HIDE DROPPER) WBC Count 6.6 4.0 - 11.0 10e3/uL 04/24/2024 5:42 AM HIDE DROPPER [facility] RBC Count 4.06 3.80 - 5.20 10e6/uL 04/24/2024 5:42 AM HIDE DROPPER [facility] Hemoglobin 12.3 11.7 - 15.7 g/dL 04/24/2024 5:42 AM HIDE DROPPER [facility] Hematocrit 37.4 35.0 - 47.0 % 04/24/2024 5:42 AM HIDE DROPPER [facility] MCV 92 78 - 100 fL 04/24/2024 5:42 AM HIDE DROPPER [facility] MCH 30.3 26.5 - 33.0 pg 04/24/2024 5:42 AM HIDE DROPPER [facility] MCHC 32.9 31.5 - 36.5 g/dL 04/24/2024 5:42 AM HIDE DROPPER [facility] RDW 13.2 10.0 - 15.0 % 04/24/2024 5:42 AM HIDE DROPPER [facility] Platelet Count 230 150 - 450 10e3/uL 04/24/2024 5:42 AM HIDE DROPPER [facility] % Neutrophils 53 % 04/24/2024 5:42 AM HIDE DROPPER [facility] % Lymphocytes 38 % 04/24/2024 5:42 AM HIDE DROPPER [facility] % Monocytes 7 % 04/24/2024 5:42 AM HIDE DROPPER [facility] % Eosinophils 1 % 04/24/2024 5:42 AM HIDE DROPPER [facility] % Basophils 1 % 04/24/2024 5:42 AM HIDE DROPPER [facility] % Immature Granulocytes 1 % 04/24/2024 5:42 AM HIDE DROPPER LABORATORY NRBCs per 100 WBC 0 <1 /100 025 5:42 AM HIDE DROPPER LABORATORY Absolute Neutrophils 3.5 1.6 - 8.3 10e3/uL 04/24/2024 5:42 AM HIDE DROPPER LABORATORY Absolute Lymphocytes 2.5 0.8 - 5.3 10e3/uL 04/24/2024 5:42 AM HIDE DROPPER LAB[facility] Absolute Monocytes 0.5 0.0 - 1.3 10e3/uL 04/24/2024 5:42 AM HIDE DROPPER LAB[facility] Absolute Eosinophils 0.1 0.0 - 0.7 10e3/uL 04/24/2024 5:42 AM HIDE DROPPER [facility] Absolute Basophils 0.0 0.0 - 0.2 10e3/uL 04/24/2024 5:42 AM HIDE DROPPER [facility] Absolute Immature Granulocytes 0.0 <=0.4 10e3/uL 04/24/2024 5:42 AM HIDE DROPPER LAB[facility] Absolute NRBCs 0.0 10e3/uL 04/24/2024 5:42 AM HIDE DROPPER LABORATORY Blood BLOOD SPECIMEN / Unknown Venipuncture / Unknown 04/24/2024 5:33 AM HIDE DROPPER 04/24/2024 5:39 AM HIDE DROPPER Jose Price MD LAB - BLOOD ORDER MENDEZ Final Result LABORATORY [facility] Acute Care Lab [address] [facility] Lab (1st floor, no room number) [place] [address] * Influenza A/B, RSV and SARS-CoV2 PCR (COVID-19) Nasopharyngeal (04/24/2024 5:23 AM HIDE DROPPER) Influenza A PCR Negative Negative 04/24/2024 6:06 AM HIDE DROPPER LABORATORY Influenza B PCR Negative Negative 04/24/2024 6:06 AM HIDE DROPPER LABORATORY RSV PCR Negative Negative 04/24/2024 6:06 AM HIDE DROPPER LABORATORY SARS CoV2 PCR Negative Negative 04/24/2024 6:06 AM HIDE DROPPER LABORATORY Comment:NEGATIVE: SARS-CoV-2 (COVID-19) RNA not detected, presumed negative. Swab NASOPHARYNGEAL STRUCTURE / Unknown Non-blood Collection / Unknown 04/24/2024 5:23 AM HIDE DROPPER 04/24/2024 5:29 AM HIDE DROPPER Narrative LABORATORY - 04/24/2024 6:06 AM HIDE DROPPER Testing was performed using the Xpert Xpress CoV2/Flu/RSV Assay on the [employer] GeneXpert Instrument. This test should be ordered [...] management. This test was validated by the [facility] [employer]. These laboratories are certified under the Clinical Laboratory Improvement Amendments of 1988 (CLIA-88) as qualified to perfom high complexity laboratory testing. us Jose Price MD LAB - MICRO GENER AL ORDERABLES Final Result [facility] Acute Care Lab [address] [facility] Lab (1st floor, no room number) [place] [address], [facility] * XR Chest 2 Views (04/24/2024 5:07 AM HIDE DROPPER) Anatomical Region Laterality Modality Chest Computed Radiogr aphy 04/24/2024 5:07 AM HIDE DROPPER Impressions 04/24/2024 5:13 AM HIDE DROPPER IMPRESSION: Normal heart size. Suture material noted in the central aspect of the right lung with opacification of the anteromedial aspect of the right lung base which may be postoperative in nature. Lungs otherwise clear. No pneumothorax or pleural effusion. Narrative 04/24/2024 5:13 AM HIDE DROPPER EXAM: XR CHEST 2 VIEWS LOCATION: [facility] DATE: 04/24/2024 INDICATION: chest pain COMPARISON: 09/15/2022 Procedure Note Yoav Osei MD - 04/24/2024 EXAM: XR CHEST 2 VIEWS LOCATION: [facility] DATE: 04/24/2024 INDICATION: chest pain COMPARISON: 09/15/2022 IMPRESSION: Normal heart size. Suture material noted in the central aspectof the right lung with opacification of the anteromedial aspect of theright lung base which may be postoperative in nature. Lungs otherwiseclear. No pneumothorax or pleural effusion. Jose Price MD IMG DIAGNOSTIC IM AGING ORDERABLES Final Result * Extra Red Top Tube (04/24/2024 4:57 AM HIDE DROPPER) Hold Specimen [facility] 04/24/2024 6:06 AM HIDE DROPPER LABORATORY Blood BLOOD SPECIMEN / Unknown Venipuncture / Unknown 04/24/2024 4:57 AM HIDE DROPPER 04/24/2024 5:01 AM HIDE DROPPER Jose Price MD LAB - BLOOD ORDER MENDEZ Final Result [facility] Lab [address] [employer] Lab (1st floor, no room number) [place] [id number] [place] [address] * Extra Blue Top Tube (04/24/2024 4:57 AM HIDE DROPPER) Hold Specimen [facility] 04/24/2024 6:06 AM HIDE DROPPER LABORATORY Blood BLOOD SPECIMEN / Unknown Venipuncture / Unknown 04/24/2024 4:57 AM HIDE DROPPER 04/24/2024 5:01 AM HIDE DROPPER Jose Price MD LAB - BLOOD ORDER MENDEZ Final Result [facility] Acute Care Lab [address] Lab (1st floor, no room number) [place] [address] * Troponin T, High Sensitivity (04/24/2024 4:57 AM HIDE DROPPER) Troponin T, High Sensitivity <6 <=14 ng/L 04/24/2024 5:26 AM [facility] LABORATORY Comment: Either a High Sensitivity Troponin [...] Unknown Venipuncture / Unknown 04/24/2024 4:57 AM HIDE DROPPER 04/24/2024 5:01 AM [facility] Jose Price MD LAB - BLOOD ORDER MENDEZ Final Result LABORATORY [facility] Acute [facility] Lab [address] [facility] Lab (1st floor, no room number) [place] [address] * (ABNORMAL) Basic metabolic panel (04/24/2024 4:57 AM HIDE DROPPER) [facility] Sodium 138 135 - 145 mmol/L 04/24/2024 5:26 AM [facility]OR[facility]ORY Potassium 4.4 3.4 - 5.3 mmol/L 04/24/2024 5:26 AM [facility] Chloride 102 98 - 107 mmol/L 04/24/2024 5:26 AM [facility] Carbon Dioxide (CO2) 22 22 - 29 mmol/L 04/24/2024 5:26 AM [facility] Anion Gap 14 7 - 15 mmol/L 04/24/2024 5:26 AM [facility] Urea Nitrogen 9.9 6.0 - 20.0 mg/dL 04/24/2024 5:26 AM [facility] Creatinine 0.61 0.51 - 0.95 mg/dL 04/24/2024 5:26 AM HIDE DROPPER LABORATORY GFR Estimate >90 >60 mL/min/1.7 3m2 04/24/2024 5:26 AM HIDE DROPPER LABORATORY Comment:eGFR calculated usin 2020 CKD-EPI equation. Calcium 9.3 8.8 - 10.4 mg/dL 04/24/2024 5:26 AM HIDE DROPPER LABORATORY Comment:Reference intervals for this test were updated on 10/31/2023 to reflect our healthy population more accurately. There may be differences in the flagging of prior results with similar values performed with this method. Those prior results can be interpreted in the context of the updated reference intervals. Glucose 100(H) 70 - 99 mg/dL 04/24/2024 5:26 AM HIDE DROPPER LABORATORY Blood BLOOD SPECIMEN / Unknown Venipuncture / Unknown 04/24/2024 4:57 AM HIDE DROPPER 04/24/2024 5:01 AM HIDE DROPPER us Jose Price MD LAB - BLOOD ORDER MENDEZ Final Result LABORATORY [facility] [address] Lab (1st floor, no room number) [place] [address] * EKG 12-lead, tracing only (04/24/2024 4:35 AM HIDE DROPPER) Systolic Blood Pressure mmHg RADIOLOGY RESULTS Diastolic Blood Pressure mmHg RADIOLOGY RESULTS Ventricular Rate 85 BPM RAD IOLOGY RESULTS Atrial Rate 85 BPM RADIOLOG Y RESULTS OH Interval 152 ms RADIOLOG Y RESULTS QRS Duration 76 ms RADIOLO GY RESULTS QT 344 ms RADIOLOGY RESULTS QTc 409 ms RADIOLOGY RESULTS P [place] 12 degrees RADIOLOGY RESULTS R AXIS 39 degrees RADIOLOGY RESULTS T [place] 18 degrees RADIOLOGY RESULTS Interpretation ECG Sinus rhythm Normal ECG When compared with ECG of 05-Jan-2024 01:13, Vent. rate has increased by 33 bpm Unconfirmed report - interpretation of this ECG is computer generated - see medical record for final interpretation Confirmed by - EMERGENCY ROOM, PHYSICIAN ([id number]), supervising editor news reel YEISON LAU ([id number]) on 04/24/2024 6:37:23 AM RADIOLOGY RESULTS 04/24/2024 4:35 AM HIDE DROPPER 04/24/2024 6:37 AM HIDE DROPPER Jose Price MD ECG ORDERABLES E dited [...] exceed 4 gram $Given 04/24/2024 6:28 AM HIDE DROPPER 1,000 mg gabapentin (NEURONTIN) capsule 1,200 mg 1,200 mg, Oral, ONCE, On Mon04/24/24 at 0525, For 1 dose $Given 04/24/2024 5:30 AM HIDE DROPPER 1,200 mg ketorolac (TORADOL) injection 15 mg [...] to 2 minutes. $Given 04/24/2024 5:32 AM HIDE DROPPER 15 mg ondansetron (ZOFRAN) injection 4 mg 4 mg, Intravenous, EVERY 30 MIN PRN, nausea, vomiting, Administer over 2-5 Minutes, Starting on Mon04/24/24 at 0501, For 3 doses, May repeat in 30 minutes as needed, up to 3 doses. $Given 04/24/2024 6:23 AM HIDE DROPPER 4 mg $Given 04/24/2024 5:32 AM HIDE DROPPER 4 mg prochlorperazine (COMPAZINE) injection 10 mg 10 mg, Intravenous, ONCE, Administer over 1-2 Minutes, On Mon04/24/24 at 0625, For 1 dose $Given 04/24/2024 6:28 AM HIDE DROPPER 10 mg sodium chloride 0.9% BOLUS 1,000 mL Intravenous, 1,000 mL, ONCE, at 1,000 mL/hr, Administer over 1 Hours, On Mon04/24/24 at 0505, For 1 dose $New Bag 04/24/2024 5:31 AM HIDE DROPPER 1,000 mLs 1000 mL/hr documented in this encounter Active and Recently Administered Medications Times are shown in HIDE DROPPER. Scheduled Medication Order 04/22/2024 04/23/2024 04/24/2024 acetaminophen [...] 0531 ($New Bag - Pro vider: Orlin oMntano RN)0649 (Stopped - Provider: Queta Betancur RN) PRN Medication Order 04/22/2024 04/23/2024 04/24/2024 ondansetron (ZOFRAN) injection 4 mg 4 mg, Intravenous, EVERY 30 MIN PRN, nausea, vomiting, Administer over 2-5 Minutes, Starting on Mon04/24/24 at 0501, For 3 doses, May repeat in 30 minutes as needed, up to 3 doses. 0514 ($Given - Provi vidhi: Orlin Montano RN)1830 ($Given - Provider: Queta Betancur RN) documented in this encounter Additional Health Concerns Infection Onset Date Last Indicated Resolved Time Rule Out COVID-19 04/24/2024 04/24/2024 04/24/2024 6:06 AM HIDE DROPPER Assessment Noted Time PHQ-9 Depression Total Score: 21 023 10:16 AM CDT documented as of this encounter Care Teams On Call Pharmacy Technician Relationship Specialty Start Date End Date [facility], [address] [address] PCP - General 11/28/23 Madelaine Mitchell DO claims administrator 07/26/16 Francesco Merritt MD [address] [place] [address] Family Medicine - Sports Medicine 12/14/18 Gabe Carl MD [address] [facility] [place] [address] Assigned PCP 05/09/21 Madelaine Mitchell DO [address] [place] [address] Assigned OBGYN Provider 03/09/24 documented as of this encounter
--- OUTSIDE RECORDS SUMMARY | 2024-05-23 11:09 | XMS_ITS | Encounter Summary ---
Author Organization [facility] Address [address] [place] [address] Care Team Providers Care Antenna Machine Operator Name Role Phone Madelaine Mitchell DO Unavailable Rosamaria Jones MD Primary Care Provider Unavaillulu e Francesco Merritt MD Unavailable Loyda Farmer MD Unavailable CreElaina morales APRN [facility] Unavailable [phone] Rosamaria Jones MD Unavailable Unavailable Gabe Carl MD Unavailable [phone] Danielle Alcantar MD Unavailable [phone] [facility] Primary Care Provider Madelaine Mitchell DO Unavailable Reason for Visit * Reason Comments Medication Refill Encounter Details Date Type Department Care Team (Late st Contact Info) Description 10/05/[address] [address] Madelaine Mitchell DO [address] [facility] [address] [place] [address] Medication Refill Social History Tobacco Use Types [...] RN - 10/22/2019 10:31 AM CDT Sent [email or web address] message to schedule appt. Queta Morales R.N. [...] Out COVID-19 03/31/2021 03/31/2021 03/31/2021 7:10 AM FINANCIAL SERVICES REPRESENTATIVE Rule Out COVID-19 09/15/2022 09/15/2022 09/15/2022 9:15 AM CDT Rule Out COVID-19 04/24/2024 04/24/2024 04/24/2024 6:06 AM FINANCIAL SERVICES REPRESENTATIVE Assessment Noted Time PHQ-9 Depression Total Score: 10 019 7:03 AM CDT documented as of this encounter Care Teams Antenna Machine Operator Relationship Specialty Start Date End Date Rosamaria Jones MD PCP - General Internal Medicine 6/22/19 8/12/24 [facility], [address] [address] PCP - General 11/28/23 Madelaine Mitchell DO medical office coordinator 07/26/16 Francesco Merritt MD [facility] [address] Family Medicine - Sports Medicine 12/14/18 Loyda Farmer MD [address] [place], [place] [id number] Assigned PCP 09/29/19 10/26/19 Elaina Jiang APRN [facility] [address] [place] [address] Assigned PCP 10/27/19 04/03/21 Rosamaria Jones MD INACTIVE IN [place] 03/16/2024 Assigned PCP 04/04/21 05/08/21 Gabe Carl MD [address] [facility] [place] [address] Assigned PCP 05/09/21 Danielle Alcantar MD [address] [place], [place] [address] Assigned Musculoskeletal Provider 07/18/21 02/03/23 Madelaine Mitchell DO [address] [address] Assigned OBGYN Provider 03/09/24 documented as of this encounter
--- OUTSIDE RECORDS SUMMARY | 2024-05-23 11:09 | XMS_ITS | Encounter Summary ---
Author Organization [facility] Address [address] [place] [address] Care Team Providers Care Wire Winder Name Role Phone Madelaine Mitchell DO Unavailable [phone] Rosamaria Jones MD Primary Care Provider UnavailFrancesco Andrea MD Unavailable [phone] Gabe Carl MD Unavailable [phone] Danielle Alcantar MD Unavailable [phone] [facility] Primary Care Provider Madelaine Mitchell DO Unavailable [phone] Reason for Referral * Infertility Artificial Insemination (Routine: Next available opening) - Closed Specialty Diagnoses / Procedures Referred By Contjoaquin t Referred To Contact Diagn[place] [address] [place] [address] Phone: tel: fax: [facility] [address] [place] [address] Phone: tel: Referral ID Status Reason Start Date Expiration Date Visits Re quested Visits Authorized [id number] Closed 06/07/2021 06/07/2022 1 1 Question Answer [...] or coverage questions. [facility]: [phone] [facility] [phone] [facility]. ([facility]) [phone] Other (external) - Use Comments Please call to schedule your appointment CHECKER Encounter Details Date Type Department Care Team (Late st Contact Info) Description 06/03/2021 MyC Medical Advice [facility] [address] [place] [address] Madelaine Mitchell DO [address] [place] [address] Anovulation (Primary Dx) Social History [...] Out COVID-19 04/24/2024 04/24/2024 04/24/2024 6:06 AM TOOL CHECKER Assessment Noted Time PHQ-9 Depression Total Score: 10 022 9:03 AM TOOL CHECKER documented as of this encounter Care Teams Wire Winder Relationship Specialty Start Date End Date Rosamaria Jones MD PCP - General Internal Medicine 10/06/18 11/27/[address] [address] PCP - General 11/28/23 Madelaine Mitchell DO litigation attorney associate 07/26/16 Francesco Merritt MD [address] [place] [address] Family Medicine - Sports Medicine 12/14/18 Gabe Carl MD [address] [facility] [address] [place] [id number] Assigned PCP 05/09/21 Danielle Alcantar MD [address] [place], [place] [address] Assigned Musculoskeletal Provider 07/18/21 02/03/23 Madelaine Mitchell DO [address] [address] Assigned OBGYN Provider 03/09/24 documented as of this encounter
--- OUTSIDE RECORDS SUMMARY | 2024-05-23 11:09 | XMS_ITS | Encounter Summary ---
Author Organization [facility] Address [address] [place] [address] Care Team Providers Care Lead Pressman [employer] Name Role Phone Madelaine Mitchell DO Unavailable Rosamaria Jones MD Primary Care Provider Unavaillulu e Francesco Merritt MD Unavailable [phone] Rosamaria Jones MD Unavailable Unavailable Serum, Loyda Escobedo MD Unavailable CreaganElaina APRN [employer] Unavailable [phone] Rosamaria Jones MD Unavailable Unavailable Gabe Carl MD Unavailable [phone] Danielle Alcantar MD Unavailable [facility] Primary Care Provider Madelaine Mitchell DO Unavailable [phone] Encounter Details Date Type Department Care Team (Late st Contact Info) Description 06/28/2019 Orders Only [facility] [place] [address] [facility], [address] [place] [address] Porsha Vargas [...] COLP CERVIX/UPPER VAGINA Routine 04/25/2019 12:00 AM SUPERVISOR HARDBOARD documented in this encounter Results * COLP CERVIX/UPPER VAGINA (04/25/2019 12:00 AM SUPERVISOR HARDBOARD) us Patient Reported PROCEDURES Final Result documented in this encounter Visit Diagnoses Not on filedocumented in this encounter Additional Health Concerns Infection Onset Date Last Indicated Resolved Time Rule Out COVID-19 03/31/2021 03/31/2021 03/31/2021 7:10 AM SUPERVISOR HARDBOARD Rule Out COVID-19 09/15/2022 09/15/2022 09/15/2022 9:15 AM CDT Rule Out COVID-19 04/24/2024 04/24/2024 04/24/2024 6:06 AM SUPERVISOR HARDBOARD Assessment Noted Time PHQ-9 Depression Total Score: 10 019 7:03 AM CDT documented as of this encounter Care Teams Lead Pressman [employer] Relationship Specialty Start Date End Date Rosamaria Jones MD PCP - General Internal Medicine 10/06/18 11/27/[address] [address] PCP - General 11/28/23 Madelaine Mitchell DO doctor of optometry 07/26/16 Francesco Merritt MD [facility] [address] [address] Family Medicine - Sports Medicine 12/14/18 Rosamaria Jones MD INACTIVE IN [place] 03/16/2024 Assigned PCP 03/31/19 09/28/19 Loyda Farmer MD [address] [place] [address] Assigned PCP 09/29/19 10/26/19 Elaina Jiang APRN CNP [address] [place] [address] Assigned PCP 10/27/19 04/03/21 Rosamaria Jones MD INACTIVE IN [place] 03/16/2024 Assigned PCP 04/04/21 05/08/21 Gabe Carl MD [address] [facility] [address] Assigned PCP 05/09/21 Danielle Alcantar MD [address] [place] [address] Assigned Musculoskeletal Provider 07/18/21 02/03/23 Madelaine Mitchell DO [address] [place] [address] [address] Assigned OBGYN Provider 03/09/24 documented as of this encounter
--- OUTSIDE RECORDS SUMMARY | 2024-05-23 11:09 | XMS_ITS | Clinical Summary ---
Author Organization [facility] Address [place], [place] [address] Care Team Providers Care Business And Financial Counsel Name Role Phone Pedro Boudreaux MD Primary Care Provider Leana Syed RN, BSN Unavailable [phone] Ceferino Catalan MD Unavailable [phone] Allergies Active Allergy Reactions Criticality Noted Date [...] per actuation) nasal solution (FLONASE) Inhale 1 [place] to both nostrils once daily if needed [...] times daily. 28 Tablet 06/21/2023 9:11 AM PRODUCTION CONTROL PLANNER 4 Active hydrOXYzine pamoate (VISTARIL) 50 mg capsuleIndication s:Carcinoid tumor of right lung Take 1 Capsule (50 mg) by mouth every 8 hours if needed for Itching or Anxiety. 21 Capsule 06/21/2023 9:11 AM PRODUCTION CONTROL PLANNER 4 Active oxyCODONE (ROXICODONE) 5 mg immediate release tabletIndications :Carcinoid tumor of right lung Take 1-2 Tablets (5-10 mg) by mouth every 4 hours if needed for Pain (moderate - severe). 20 Tablet 06/21/2023 9:11 AM PRODUCTION CONTROL PLANNER 4 Active sennosides-docusa te (SENOKOT S) (8.6-50 mg) tabletIndications :Carcinoid tumor of right lung Take 1-4 Tablets by mouth two times daily. 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 Plan colp 04/25/18 [place] - no visible lesions, no bx. Plan pap due in 1 year pap from previous pap 03/13/19 Pap reminder letter sent. ([facility]) 03/14/19 states pt is 25 weeks (ASAD 06/27/19), no appts in chart. ([facility]) CCT tracking PCOS (polycystic ovarian syndrome) 04/26/2017 Pre-diabetes 04/07/2008 Irregular menses 03/21/2008 Exercise-induced asthma Resolved Problems Problem Noted Date Diagnosed Date Resolved Date Corneal ulcer, unspecified 08/25/2006 0 04/18/2008 FEVER 04/26/2017 Encounters Date Type Department Care Team Description 05/22/2024 5:05 PM PRODUCTION CONTROL PLANNER - 05/22/2024 7:42 PM PRODUCTION CONTROL PLANNER Emergency [facility] [address] [place] [address] Geovanni Calixto MD Discharge Disposition: Against Medical Advice or Discontinued Care 05/22/2024 Travel 04/28/2024 Nurse Triage [facility] [address] [place] [address] Pcp, No Headache 04/27/2024 12:11 PM PRODUCTION CONTROL PLANNER - 04/27/2024 3:18 PM PRODUCTION CONTROL PLANNER Emergency [facility] [address] [place] [id number] Airam Amaya MD Vomiting, unspecified vomiting type, [...] on file Legal Sex Female 5:26 AM PRODUCTION CONTROL PLANNER Gender Identity Not on file Sexual Orientation [...] Comments Blood Pressure 134/88 05/22/2024 7:00 PM PRODUCTION CONTROL PLANNER Pulse 95 05/22/2024 7:00 PM PRODUCTION CONTROL PLANNER Temperature 37.1 C (98.7 F) 05/22/2024 5:24 PM PRODUCTION CONTROL PLANNER Respiratory Rate 16 05/22/2024 5:24 PM [employer]ODUCTION CONTROL PL[employer]NER Oxygen Saturation 94% 05/22/2024 7:00 PM PRODUCTION CONTROL PLANNER Inhaled Oxygen Concentration - - Weight 88.9 kg (196 lb) 05/22/2024 5:24 PM PRODUCTION CONTROL PLANNER Height 165.1 cm (5' 5) 05/22/2024 5:24 PM PRODUCTION CONTROL PLANNER Body Mass Index 32.62 05/22/2024 5:24 PM PRODUCTION CONTROL PLANNER Plan of Treatment Upcoming Encounters Date Type Department Care Team (Late st Contact Info) Description 06/20/2024 7:30 AM PRODUCTION CONTROL PLANNER Appointment [facility] [address] [place] [address] 06/20/2024 8:00 AM PRODUCTION CONTROL PLANNER Office Visit [facility] [address] [place] [address] Ceferino Catalan MD [address] [place] [address] Health Maintenance Due Date Last Done Comments [...] HEAD BRAIN WO STAT 05/22/2024 6:18 PM PRODUCTION CONTROL PLANNER CBC WITH AUTO DIFFERENTIAL STAT 05/22/2024 5:48 PM PRODUCTION CONTROL PLANNER ,SERUM QUALITATIVE STAT 05/22/2024 5:48 PM PRODUCTION CONTROL PLANNER COMP METABOLIC PANEL STAT 05/22/2024 5:48 PM PRODUCTION CONTROL PLANNER CBC WITH AUTO DIFFERENTIAL STAT 05/22/2024 5:48 PM PRODUCTION CONTROL PLANNER CBC W PLT NO DIFF STAT 04/27/2024 2:3 9 PM PRODUCTION CONTROL PLANNER EKG 12 LEAD STAT 04/27/2024 1:56 PM PRODUCTION CONTROL PLANNER COMP METABOLIC PANEL PATTI 04/27/2024 1:54 PM PRODUCTION CONTROL PLANNER TROPONIN T (HS) ONE TIME STAT 04/27/2024 1:54 PM PRODUCTION CONTROL PLANNER ETHANOL SERUM OR PLASMA STAT 04/27/2024 1:54 PM PRODUCTION CONTROL PLANNER PROTIME-INR STAT 04/27/2024 1:54 PM PRODUCTION CONTROL PLANNER URINALYSIS MICROSCOPIC STAT 04/27/2024 11:05 AM PRODUCTION CONTROL PLANNER COVID/FLU/RSV PANEL Today 04/27/2024 1 1:05 AM PRODUCTION CONTROL PLANNER UA W/ SEDIMENT EXAM REFLEXED PER CRITERIA STAT 04/27/2024 11:05 AM PRODUCTION CONTROL PLANNER DIRECTOR OF CURRICULUM AND INSTRUCTION THIN PREP PAP SCREEN IMAGED Routine 08/20/2020 1:00 PM CDT ANTI HIV 1/2 Routine 11/12/2010 11:20 AM CDT Screen for STD (sexually transmitted disease) ANTI HCV Routine 11/12/2010 11:20 AM CDT Screen for STD (sexually transmitted disease) from Last 3 Months or Most Recently Relevant to Health Maintenance Results * CT HEAD BRAIN WO (05/22/2024 6:18 PM PRODUCTION CONTROL PLANNER) Anatomical Region Laterality Modality HEAD, BRAIN Computed Tomogra phy 05/22/2024 6:40 PM PRODUCTION CONTROL PLANNER Impressions 05/22/2024 6:40 PM PRODUCTION CONTROL PLANNER 1. No acute intracranial abnormality. 2. Previously described pituitary lesion is not well seen on this examination. Please note that all CT scans at this facility use dose modulation, iterative reconstruction, and/or weight-based dosing when appropriate to reduce radiation dose to as low as reasonably achievable. Dictated by Remberto Young MD @ 05/22/2024 6:40:42 PM (Electronically Signed) Narrative 05/22/2024 6:40 PM PRODUCTION CONTROL PLANNER For Patients: As a result of the [...] CBC WITH AUTO DIFFERENTIAL (05/22/2024 5:48 PM [facility]) WHITE BLOOD COUNT 9.2 4.5 - 11.0 thou/cu mm 05/22/2024 6:02 PM [facility] RED BLOOD COUNT 4.90 4.00 - 5.20 mil/cu mm 05/22/2024 6:02 PM [facility] HEMOGLOBIN 14.5 12.0 - 16.0 g/dL 05/22/2024 6:02 PM [facility] HEMATOCRIT 46.1 33.0 - 51.0 % 05/22/2024 6:02 PM [facility] MCV 94 80 - 100 fL 05/22/2024 6:02 PM [facility] MCH 29.6 26.0 - 34.0 pg 05/22/2024 6:02 PM [facility] MCHC 31.5(L) 32.0 - 36.0 g/dL 05/22/2024 6:02 PM [facility] RDW 13.5 11.5 - 15.5 % 05/22/2024 6:02 PM [facility] PLATELET COUNT 307 140 - 440 thou/cu mm 05/22/2024 6:02 PM [facility] MPV 9.7 6.5 - 11.0 fL 05/22/2024 6:02 PM [facility] % NEUT 63.5 % 05/22/2024 6:02 PM [facility] % LYMPH 31.9 % 05/22/2024 6:02 PM [facility] % MONO 3.7 % 05/22/2024 6:02 PM [facility] % EOS 0.5 % 05/22/2024 6:02 PM [facility] % BASO 0.4 % 05/22/2024 6:02 PM [facility] ABSOLUTE NEUTROPHILS 5.9 1.7 - 7.0 thou/cu mm 05/22/2024 6:02 PM [facility] ABSOLUTE LYMPHOCYTES 2.9 0.9 - 2.9 thou/cu mm 05/22/2024 6:02 PM [facility] ABSOLUTE MONOCYTES 0.3 <0.9 thou/cu mm 05/22/2024 6:02 PM [facility] ABSOLUTE EOSINOPHILS 0.1 <0.5 thou/cu mm 05/22/2024 6:02 PM [facility] ABSOLUTE BASOPHILS 0.0 <0.3 thou/cu mm 05/22/2024 6:02 PM [facility] Blood BLOOD SPECIMEN / Unknown IV Start / Unknown 05/22/2024 5:48 PM PRODUCTION CONTROL PLANNER 05/22/2024 5:52 PM PRODUCTION CONTROL PLANNER Geovanni Calixto MD HEMATOLOGY Final Result Performing Organization Address City/[facility]/ZIP Co de Phone Number [facility] [address] [place] [address] * ,SERUM QUALITATIVE (05/22/2024 5:48 PM PRODUCTION CONTROL PLANNER) [facility] ,SERU M Negative Negative 05/22/2024 6:09 PM [facility] Blood BLOOD SPECIMEN / Unknown IV Start / Unknown 05/22/2024 5:48 PM PRODUCTION CONTROL PLANNER 05/22/2024 5:52 PM PRODUCTION CONTROL PLANNER Geovanni Calixto MD CHEMISTRY Final Result Performing Organization Address City/[facility]/ZIP Co de Phone Number [facility] [address] [place] [address] * (ABNORMAL) COMP METABOLIC PANEL (05/22/2024 5:48 PM PRODUCTION CONTROL PLANNER) Only the most recent of2 resultswithin the time period is included. Pathologist [facility] SODIUM 147(H) 136 - 145 mmol/L 05/22/2024 6:44 PM [facility] POTASSIUM 4.2 3.5 - 5.1 mmol/L 05/22/2024 6:44 PM [facility] CHLORIDE 104 98 - 107 mmol/L 05/22/2024 6:44 PM [facility] CO2,TOTAL 25 22 - 29 mmol/L 05/22/2024 6:44 PM [facility] ANION GAP 18 5 - 18 05/22/2024 6:44 PM [facility] GLUCOSE 119(H) 70 - 99 mg/dL 05/22/2024 6:44 PM [facility] CALCIUM 9.5 8.8 - 10.4 mg/dL 05/22/2024 6:44 PM [facility] Comment: Reference ranges for this test were updated on 02/20/2024 to reflect our healthy population more accurately. Reference range changes are not retroactively applied to results, but previous results using the same methodology can be interpreted in the context of the new reference range. BUN 10 6 - 20 mg/dL 05/22/2024 6:44 PM [facility] CREATININE 0.66 0.50 - 0.90 mg/dL 05/22/2024 6:44 PM [facility] BUN/CREAT RATIO 15 10 - 20 6:44 PM [facility] eGFR >90 >90 mL/min/1. 73m2 05/22/2024 6:44 PM [facility] Comment:As of 2021, eG FR is calculated by the CKD-EPI creatinine equation without race adjustment. eGFR can be influenced by muscle mass, exercise, and diet. The reported eGFR is an estimation only and is only applicable if the renal function is stable. ALBUMIN 5.0(H) 4.0 - 4.9 g/dL 05/22/2024 6:44 PM [facility] PROTEIN,TOTAL 8.1(H) 6.0 - 8.0 g/dL 05/22/2024 6:44 PM [facility] BILIRUBIN,TOTAL 0.2 0.0 - 1.2 mg/dL 05/22/2024 6:44 PM [facility] ALK PHOSPHATASE 63 35 - 104 IU/L 05/22/2024 6:44 PM PRODUCTION CONTROL PLANNER [facility] ALT (SGPT) 28 10 - 35 IU/L 05/22/2024 6:44 PM PRODUCTION CONTROL PLANNER [facility] AST (SGOT) 26 10 - 35 IU/L 05/22/2024 6:44 PM PRODUCTION CONTROL PLANNER [facility] Blood BLOOD SPECIMEN / Unknown IV Start / Unknown 05/22/2024 5:48 PM PRODUCTION CONTROL PLANNER 05/22/2024 5:52 PM PRODUCTION CONTROL PLANNER Geovanni Calixto MD CHEMISTRY Final Result [facility] [address] [place] [address] * CBC W PLT NO DIFF (04/27/2024 2:39 PM PRODUCTION CONTROL PLANNER) WHITE BLOOD COUNT 9.4 4.5 - 11.0 thou/cu mm 04/27/2024 2:45 PM [facility] RED BLOOD COUNT 4.08 4.00 - 5.20 mil/cu mm 04/27/2024 2:45 PM [facility] HEMOGLOBIN 12.8 12.0 - 16.0 g/dL 04/27/2024 2:45 PM [facility] HEMATOCRIT 38.4 33.0 - 51.0 % 04/27/2024 2:45 PM [facility] MCV 94 80 - 100 fL 04/27/2024 2:45 PM PRODUCTION CONTROL PLANNER [facility] MCH 31.4 26.0 - 34.0 pg 04/27/2024 2:45 PM [facility] MCHC 33.3 32.0 - 36.0 g/dL 04/27/2024 2:45 PM [facility] RDW 13.4 11.5 - 15.5 % 04/27/2024 2:45 PM [facility] PLATELET COUNT 235 140 - 440 thou/cu mm 04/27/2024 2:45 PM [facility] MPV 9.2 6.5 - 11.0 fL 04/27/2024 2:45 PM [facility] NRBC 0.0 % 04/27/2024 2:45 PM PRODUCTION CONTROL PLANNER [facility] ABS NRBC 0.0 thou /cu mm 04/27/2024 2:45 PM PRODUCTION CONTROL PLANNER [facility] Blood BLOOD SPECIMEN / Unknown Non-Lab Venipuncture / Unknown 04/27/2024 2:39 PM PRODUCTION CONTROL PLANNER 04/27/2024 2:43 PM PRODUCTION CONTROL PLANNER us Airam Amaya MD HEMATOLOGY Fi nal Result Performing Organization Address City/[facility]/ZIP Co de Phone Number [id number] [place] [address] * EKG 12 LEAD (04/27/2024 1:56 PM PRODUCTION CONTROL PLANNER) Interpretation Normal sinus rhythm Normal ECG BEYOND NOW Ventricular Rate 99 BPM BEY[facility] NOW Atrial Rate 99 BPM BEYOND NOW P-R Interval 148 ms BEYOND NOW QRS Duration 80 ms BEYOND NOW QT 348 ms BEYOND NOW QTc 446 ms BEYOND NOW P [place] 50 degrees BEYOND NOW R [place] 24 degrees BEYOND NOW T [place] 9 degrees BEYOND NOW 04/27/2024 1:56 PM PRODUCTION CONTROL PLANNER 04/30/2024 9:40 AM PRODUCTION CONTROL PLANNER us Airam Amaya MD EKG ORD Fi nal Result Performing Organization Address City/[facility] Co de Phone Number [place], [place] * TROPONIN T (HS) ONE TIME (04/27/2024 1:54 PM PRODUCTION CONTROL PLANNER) TROPONIN T HS <6 6-10 ng/L ng/L 04/27/2024 2:25 PM PRODUCTION CONTROL PLANNER [facility] Blood BLOOD SPECIMEN / Unknown IV Start / Unknown 04/27/2024 1:54 PM PRODUCTION CONTROL PLANNER 04/27/2024 2:06 PM PRODUCTION CONTROL PLANNER Narrative [facility] - 04/27/2024 2:25 PM PRODUCTION CONTROL PLANNER hs-cTnT (Elecsys Troponin T Gen 5) concentration [...] CHEMISTRY Fi nal Result Performing Organization Address [facility] [place] [address] * ETHANOL SERUM OR PLASMA (04/27/2024 1:54 PM PRODUCTION CONTROL PLANNER) ETHANOL <0.010 <0.010 g/dL 04/27/2024 2:25 PM PRODUCTION CONTROL PLANNER [facility] Blood BLOOD SPECIMEN / Unknown IV Start / Unknown 04/27/2024 1:54 PM PRODUCTION CONTROL PLANNER 04/27/2024 2:06 PM PRODUCTION CONTROL PLANNER Airam Amaya MD CHEMISTRY Fi nal Result Performing Organization Address [facility] [place] [address] * PROTIME-INR (04/27/2024 1:54 PM PRODUCTION CONTROL PLANNER) INR 1.0 <1.3 04/27/2024 2:30 PM PRODUCTION CONTROL PLANNER [facility] PROTIME 10.9 10.6 - 12.4 sec 04/27/2024 2:30 PM PRODUCTION CONTROL PLANNER [facility] Blood BLOOD SPECIMEN / Unknown IV Start / Unknown 04/27/2024 1:54 PM PRODUCTION CONTROL PLANNER 04/27/2024 2:06 PM PRODUCTION CONTROL PLANNER Narrative [facility] - 04/27/2024 2:30 PM PRODUCTION CONTROL PLANNER Therapeutic Range 2.0-3.0 for most anticoagulated patients [...] Airam Amaya MD HEMATOLOGY Fi nal Result [id number] [place] [address] * COVID/FLU/RSV PANEL (04/27/2024 11:05 AM PRODUCTION CONTROL PLANNER) Pathologist [facility] COVID 19 [place] MOLECULAR Negative Negative 04/27/2024 11:49 AM [facility] Comment:All PCR tests are bauman bject to false negative result due to variability in viral load and collection technique. A negative result does not rule out a SARS-CoV-2 infection. Clinical correlation required. INFLUENZA A PCR Negative 11:49 AM PRODUCTION CONTROL PLANNER [facility] INFLUENZA B PCR Negative 11:49 AM PRODUCTION CONTROL PLANNER [facility] Respiratory Syncytial Virus Negative 04/27/2024 11:49 AM PRODUCTION CONTROL PLANNER [facility] Swab NASOPHARYNGEAL SWAB / Unknown Non-Blood / Unknown 04/27/2024 11:05 AM PRODUCTION CONTROL PLANNER 04/27/2024 11:09 AM PRODUCTION CONTROL PLANNER [facility] Ed Triage MICROBIOLOGY Final Result Performing Organization Address [facility] Co de Phone Number [address] [address] * URINALYSIS MICROSCOPIC (04/27/2024 11:05 AM PRODUCTION CONTROL PLANNER) RBC None Seen 0-2, None Seen /HPF 04/27/2024 11:24 AM [facility] WBC 3-5 0-2, 3-5, None Seen /HPF 04/27/2024 11:24 AM [facility] BACTERIA Rare None Seen, Rare, Few Bacteria/H PF 04/27/2024 11:24 AM [facility] EPITHELIAL CELLS Few None Seen, Few Epi/HPF 04/27/2024 11:24 AM [facility] Urine URINE SPECIMEN / Unknown Non-Blood / Unknown 04/27/2024 11:05 AM PRODUCTION CONTROL PLANNER 04/27/2024 11:09 AM PRODUCTION CONTROL PLANNER [facility] Ed Triage URINE Final Result Performing Organization Address [facility] de Phone Number [address] [address] * (ABNORMAL) UA W/ SEDIMENT EXAM REFLEXED PER CRITERIA (04/27/2024 11:05 AM PRODUCTION CONTROL PLANNER) COLOR Yellow Yellow Color 04/27/2024 11:13 AM [facility] CLARITY Clear Clear Clarity 04/27/2024 11:13 AM [facility] SPECIFIC GRAVITY,URINE <=1.005(A) 1.010, 1.015, 1.020, 1.025 04/27/2024 11:13 AM [facility] PH,URINE 7.0 6.0, 7.0, 8.0, 5.5, 6.5, 7.5, 8.5 04/27/2024 11:13 AM [facility] UROBILINOGEN, QUALITATIVE Normal Normal EU/dl 04/27/2024 11:13 AM [facility] PROTEIN, URINE Negative Negative mg/dL 04/27/2024 11:13 AM PRODUCTION CONTROL PLANNER [facility] GLUCOSE, URINE Negative Negative mg/dL 04/27/2024 11:13 AM PRODUCTION CONTROL PLANNER [facility] KETONES,URINE Negative Negative mg/dL 04/27/2024 11:13 AM PRODUCTION CONTROL PLANNER [facility] BILIRUBIN,URI NE Negative Negative 04/27/2024 11:13 AM PRODUCTION CONTROL PL[employer]NER [facility] OCCULT BLOOD,URINE Negative Negative 04/27/2024 11:13 AM PRODUCTION CONTROL PLANNER [facility] NITRITE Negative Negative 04/27/2024 11:13 AM PRODUCTION CONTROL PL[employer]NER [facility] LEUKOCYTE ESTERASE Trace(A) Negative 04/27/2024 11:13 AM PRODUCTION CONTROL PL[employer]NER [facility] Urine URINE SPECIMEN / Unknown Non-Blood / Unknown 04/27/2024 11:05 AM PRODUCTION CONTROL PLANNER 04/27/2024 11:09 AM PRODUCTION CONTROL PLANNER us [facility] Ed [place] [address] * DIRECTOR OF CURRICULUM AND INSTRUCTION THIN PREP PAP SCREEN IMAGED (08/20/2020 1:00 PM CDT) Case Report Gynecologic Cytology Report Case: [id number] Authorizing Provider: Megan Hernandez MD Collected: 08/20/2020 1300 Ordering Location: [facility] Received: 08/23/2020 0927 First Screen: Bernabe Cummins Specimen: DIRECTOR OF CURRICULUM AND INSTRUCTION ThinPrep Vial Screening, Cervical/Vaginal 09/01/2020 12:03 PM CDT [facility] INTERPRETATION/ RESULT NEGATIVE FOR INTRAEPITHELIAL LESION OR MALIGNANCY (NIL) (none) 09/01/2020 12:03 PM CDT [facility] IMEN ADEQUACY Satisfactory for evaluation Endocervical component present 09/01/2020 12:03 PM CDT [facility] HPV REQUEST HPV and PAP 09/01/2020 12:03 PM [facility]T [facility] Date of LMP 07/30/2020 09/01/2020 12:03 PM CDT [facility] Last Pap Date 08/19/2019 09/01/2020 12:03 PM CDT [facility] Last Pap Result NIL 12:03 PM CDT [facility] Additional Information 09/01/2020 12:03 PM CDT [facility] Comment: Interpreted at [facility] - [address], [place] [address] Automated Review Successful 09/01/2020 12:03 PM CDT [facility] Comment:Specimen processed s uccessfully by automated patient admitting clerk device, [employer] Imaging System, [employer] ANCILLARY TESTING DIRECTOR OF CURRICULUM AND INSTRUCTION HPV Ordered, Please see separate report 09/01/2020 12:03 PM CDT [facility] Note The pap test is a [...] and malignant lesions. 09/01/2020 12:03 PM CDT [facility] Other (Cervical/Vagina l) 08/20/2020 1:00 PM CDT 08/23/2020 9:27 AM CDT us Meagn Hernandez MD PATHOLOGY/CYTOLOGY Final Result [facility] [address] [place] [address], [place] * ANTI HCV (11/12/2010 11:20 AM CDT) ANTI HCV Non-reacti ve [facility] Blood specimen (specimen) BLOOD SPECIMEN / Unknown 11/12/2010 11:20 AM CDT 11/12/2010 11:08 AM CDT us Capri Marquez MD SEND OUTS F inal Result [facility] [place] ZIP [address] [address] * ANTI HIV 1/2 (11/12/2010 11:20 AM CDT) ANTI HIV 1/2 Non-reacti ve [facility] Blood specimen (specimen) BLOOD SPECIMEN / Unknown 11/12/2010 11:20 AM CDT 11/12/2010 11:08 AM CDT us Capri Marquez MD SEND OUTS F inal Result [facility] [place]NAL ZIP [address] [address] from Last 3 Months or Most Recently Relevant to Health Maintenance Insurance [employer] CROSS OF NON-VA-ITS [employer] ROBERTS OF NON-VA-ITS Advance Directives * Full Code (Latest Code [...] Code Status Discussion: Reviewed Preferences Care Teams Business And Financial Counsel Relationship Specialty Start Date End Date Pedro Boudreaux MD [address] [place] [address] PCP - General Family Practice 05/10/23 Leana Syed, RN, BSN [address] [place] [id number] Nurse Navigator - Oncology Registered Nurse 05/29/23 Ceferino Catalan MD [address] [place] [id number] Surgery - Cardiothoracic 06/01/23
--- OUTSIDE RECORDS SUMMARY | 2024-05-23 11:09 | XMS_ITS | Encounter Summary ---
Author Organization [place] Address [address] [place] [address] Care Team Providers Care Kitchen Lead Name Role Phone Rosamaria Jones MD Primary Care Provider UnavailMadelaine Mac DO Unavailable [phone] CreElaina morales APRN CHEMIST HELPER Unavailable [phone] No Ref-Primary, Physician Primary Care Provider Rosamaria Jones MD Primary Care Provider UnavailFrancesco Andrea MD Unavailable [phone] Rosamaria Jones MD Unavailable Unavailable SerumLoyda MD Unavailable Elaina Jiang APRN CHEMIST HELPER Unavailable [phone] Rosamaria Jones MD Unavailable Unavailable Gabe Carl MD Unavailable [phone] Danielle Alcantar MD Unavailable [phone] [facility] Primary Care Provider Madelaine Mitchell DO Unavailable [phone] Encounter Details Date Type Department Care Team (Late st Contact Info) Description 07/15/2018 [facility] [address] [place] [address] Madelaine Mitchell DO [address] [facility] [address] [place] [address] PCOS (polycystic ovarian syndrome) (Primary Dx) Social [...] COVID-19 03/31/2021 03/31/2021 03/31/2021 7:10 AM LIFE ASSURANCE REPRESENTATIVE Rule Out COVID-19 09/15/2022 09/15/2022 09/15/2022 9:15 AM CDT Rule Out COVID-19 04/24/2024 04/24/2024 04/24/2024 6:06 AM LIFE ASSURANCE REPRESENTATIVE Assessment Noted Time PHQ-9 Depression Total Score: 0 02/01/20 17 1:00 PM CDT documented as of this encounter Care Teams Kitchen Lead Relationship Specialty Start Date End Date Rosamaria Jones MD PCP - General Internal Medicine 09/12/14 07/24/18 No Ref-Primary, Physician PCP - General 07/25/18 10/05/18 Rosamaria Jones MD PCP - General Internal Medicine 10/06/18 11/27/23 [place] [address] PCP - General 11/28/23 Madelaine Mitchell DO school administrator 07/26/16 Elaina Jiang APRN CHEMIST HELPER [address] [place] [address] Assigned PCP 04/08/18 03/30/19 Francesco Merritt MD [address] [id number] Family Medicine - Sports Medicine 12/14/18 Rosamaria Jones MD INACTIVE IN [place] 03/16/2024 Assigned PCP 03/31/19 09/28/19 Loyda Farmer MD [address] [place] [id number] Assigned PCP 09/29/19 10/26/19 Elaina Jiang APRN CHEMIST HELPER [address] [place] [address] Assigned PCP 10/27/19 04/03/21 Rosamaria Jones MD INACTIVE IN [place] 03/16/2024 Assigned PCP 04/04/21 05/08/21 Gabe Carl MD [address] [facility] [address] [place] [id number] Assigned PCP 05/09/21 Danielle Alcantar MD [address] [place], [place] 427725 Assigned Musculoskeletal Provider 07/18/21 02/03/23 Madelaine Mitchell DO [address] [address] Assigned OBGYN Provider 03/09/24 documented as of this encounter
--- OUTSIDE RECORDS SUMMARY | 2024-05-23 11:09 | XMS_ITS | Encounter Summary ---
Author Organization [place] Address [address] [place] [address] Care Team Providers Care Circus Laborer Name Role Phone Rosamaria Jones MD Primary Care Provider UnavailMadelaine Mac DO Unavailable [phone] Jonas uCllen MD Unavailable [phone] CreElaina morales APRN COOK HELPER PRESERVES Unavailable CreElaina morales APRN COOK HELPER PRESERVES Unavailable [phone] No Ref-Primary, Physician Primary Care Provider Rosamaria Jones MD Primary Care Provider UnavailFrancesco Andrea MD Unavailable Rosamaria Jones MD Unavailable Unavailable Loyda Farmer MD Unavailable Elaina Jiang APRN COOK HELPER PRESERVES Unavailable [phone] Rosamaria Jones MD Unavailable Unavailable Gabe Carl MD Unavailable [phone] Danielle Alcantar MD Unavailable [phone] [facility] Primary Care Provider Madelaine Mitchell DO Unavailable [phone] Reason for Visit * Reason Onset Date Comments Results 10/07/2016 hgb Encounter Details Date Type Department Care Team (Late st Contact Info) Description 10/07/2016 MyC Medical Advice [facility] [address] [place] [id number] Madelaine Mitchell DO [address] [place] [facility] [address] [place] [address] Results (hgb) Social History Tobacco Use Types [...] Out COVID-19 03/31/2021 03/31/2021 03/31/2021 7:10 AM BILLET DRILLER Rule Out COVID-19 09/15/2022 09/15/2022 09/15/2022 9:15 AM CDT Rule Out COVID-19 04/24/2024 04/24/2024 04/24/2024 6:06 AM BILLET DRILLER documented as of this encounter Care Teams Circus Laborer Relationship Specialty Start Date End Date Rosamaria Jones MD PCP - General Internal Medicine 09/12/14 07/24/18 [place] [address] [place] [address] PCP - Assigned PCP 02/04/18 04/07/18 Elaina Jiang APRN CNP [address] [place] [address] PCP - Assigned PCP 04/08/18 06/19/18 No Ref-Primary, Physician PCP - General 07/25/18 10/05/18 Rosamaria Jones MD PCP - General Internal Medicine 10/06/18 11/27/[address] [address] PCP - General 11/28/23 Madelaine Mitchell DO able bodied seaman 07/26/16 Elaina Jiang APRN COOK HELPER PRESERVES [address] [place], [place] 57[address]87 Assigned PCP 04/08/18 03/30/19 Francesco Merritt MD [facility] [id number] [place], [place] [address]25[address] Family Medicine - Sports Medicine 12/14/18 Rosamaria Jones MD [place]CTIVE IN [place] 03/16/2024 Assigned PCP 03/31/19 09/28/19 Loyda Farmer MD [address] [place], [place] [id number] Assigned PCP 09/29/19 10/26/19 Elaina Jiang APRN COOK HELPER PRESERVES [address] [place] [address] Assigned PCP 10/27/19 04/03/21 Rosamaria Jones MD [place]IVE IN [place] 03/16/2024 Assigned PCP 04/04/21 05/08/21 Gabe Carl MD [address] [facility] [address] [place] [id number] Assigned PCP 05/09/21 Danielle Alcantar MD [address] [place], [place] [address] Assigned Musculoskeletal Provider 07/18/21 02/03/23 Madelaine Mitchell DO [address] [address] Assigned OBGYN Provider 03/09/24 documented as of this encounter
--- OUTSIDE RECORDS SUMMARY | 2024-05-23 11:09 | XMS_ITS | Encounter Summary ---
Author Organization [place] Address [address] [place] [address] Care Team Providers Care Production Mechanic Tin Cans Name Role Phone Madelaine Mitchell DO Unavailable Rosamaria Jones MD Primary Care Provider Unavaillulu e Francesco Merritt MD Unavailable [phone] Rosamaria Jones MD Unavailable Unavailable Serum, Loyda Escobedo MD Unavailable CreaganElaina APRN HIGH DENSITY PRESS OPERATOR Unavailable [phone] Rosamaria Jones MD Unavailable Unavailable Gabe Carl MD Unavailable [phone] Danielle Alcantar MD Unavailable [phone] [facility] Primary Care Provider Madelaine Mitchell DO Unavailable [phone] Encounter Details Date Type Department Care Team (Late st Contact Info) Description 06/28/2019 Orders Only [facility] [address] [facility], [address] [place] [address] Porsha [...] COLP CERVIX/UPPER VAGINA Routine 04/25/2018 12:00 AM MACHINE STEAK TENDERIZER documented in this encounter Results * COLP CERVIX/UPPER VAGINA (04/25/2018 12:00 AM MACHINE STEAK TENDERIZER) us Patient Reported PROCEDURES Final Result documented in this encounter Visit Diagnoses Not on filedocumented in this encounter Additional Health Concerns Infection Onset Date Last Indicated Resolved Time Rule Out COVID-19 03/31/2021 03/31/2021 03/31/2021 7:10 AM MACHINE STEAK TENDERIZER Rule Out COVID-19 09/15/2022 09/15/2022 09/15/2022 9:15 AM CDT Rule Out COVID-19 04/24/2024 04/24/2024 04/24/2024 6:06 AM MACHINE STEAK TENDERIZER Assessment Noted Time PHQ-9 Depression Total Score: 10 019 7:03 AM CDT documented as of this encounter Care Teams Production Mechanic Tin Cans Relationship Specialty Start Date End Date Rosamaria Jones MD PCP - General Internal Medicine 10/06/18 11/27/[address] [address] PCP - General 11/28/23 Madelaine Mitchell DO enrollment coordinator 07/26/16 Francesco Merritt MD [facility] [address] Family Medicine - Sports Medicine 12/14/18 Rosamaria Jones MD INACTIVE IN [place] 03/16/2024 Assigned PCP 03/31/19 09/28/19 Loyda Farmer MD [address] [place] [address] Assigned PCP 09/29/19 10/26/19 Elaina Jiang APRN CNP [address] [place] [address] Assigned PCP 10/27/19 04/03/21 Rosamaria Jones MD INACTIVE IN [place] 03/16/2024 Assigned PCP 04/04/21 05/08/21 Gabe Carl MD [address] [facility] [place] [address] Assigned PCP 05/09/21 Danielle Alcantar MD [address] [place] [address] Assigned Musculoskeletal Provider 07/18/21 02/03/23 Madelaine Mitchell DO [address] [address] Assigned OBGYN Provider 03/09/24 documented as of this encounter
--- OUTSIDE RECORDS SUMMARY | 2024-05-23 11:09 | XMS_ITS | Encounter Summary ---
Author Organization [place] Address [address] [place] [address] Care Team Providers Care Internet Security Specialist Name Role Phone Madelaine Mitchell DO Unavailable [phone] Francesco Merritt MD Unavailable [phone] Gabe Carl MD Unavailable [phone] [place] [address] Primary Care Provider Madelaine Mitchell DO Unavailable [phone] Encounter Details Date Type Department Care Team [...] Out COVID-19 04/24/2024 04/24/2024 04/24/2024 6:06 AM BAKER CHEF Assessment Noted Time PHQ-9 Depression Total Score: 21 023 10:16 AM CDT documented as of this encounter Care Teams Internet Security Specialist Relationship Specialty Start Date End Date Clinic, [address] [id number] PCP - General 11/28/23 Madelaine Mitchell DO pipe jeeper 07/26/16 Francesco Merritt MD [address] [facility] [address] [place] [address] Family Medicine - Sports Medicine 12/14/18 Gabe Carl MD [address] [facility] [place] [address] Assigned PCP 05/09/21 Madelaine Mitchell DO [address] [facility] 100 [place] [address] Assigned OBGYN Provider 03/09/24 documented as of this encounter
--- OUTSIDE RECORDS SUMMARY | 2024-05-23 11:09 | XMS_ITS | Encounter Summary ---
Author Organization [place] Address [address] [place] [address]. [place] [address] Care Team Providers Care Facility Service Associate Name Role Phone Madelaine Mitchell DO Unavailable [phone] Francesco Merritt MD Unavailable Gabe Carl MD Unavailable [phone] [place] [address] Primary Care Provider Madelaine Mitchell DO Unavailable [phone] Reason for Visit * Reason Onset Date Comments Medication Request 03/12/2024 Encounter Details Date Type Department Care Team (Late st Contact Info) Description 03/12/2024 MyC Medical Advice [facility] [address] [place] [address] Madelaine Mitchell DO [address] [facility] WILLIAM [address] [place] [address] Medication Request Social History Tobacco Use Types [...] a follow up with her? Queta Morales WAXER [place] medical transcriber LE CUTTER documented in this encounter Plan of Treatment Not on file documented as of this encounter Visit Diagnoses Diagnosis Anovulation- Primary Female infertility associated with anovulation documented in this encounter Additional Health Concerns Infection Onset Date Last Indicated Resolved Time Rule Out COVID-19 04/24/2024 04/24/2024 04/24/2024 6:06 AM MARBLE CUTTER Assessment Noted Time PHQ-9 Depression Total Score: 21 023 10:16 AM CDT documented as of this encounter Care Teams Facility Service Associate Relationship Specialty Start Date End Date [address] [address] PCP - General 11/28/23 Madelaine Mitchell DO podiatrist 07/26/16 Francesco Merritt MD [facility] [address] [facility] [address] [place] [address] Family Medicine - Sports Medicine 12/14/18 Gabe Carl MD [address] [facility] [place] [address] Assigned PCP 05/09/21 Madelaine Mitchell DO [address] [address] Assigned OBGYN Provider 03/09/24 documented as of this encounter
--- OUTSIDE RECORDS SUMMARY | 2024-05-23 11:09 | XMS_ITS | Encounter Summary ---
Author Organization [place] Address [address] [place] [address]. [place] [address] Care Team Providers Care Captain Airline Pilot Name Role Phone Madelaine Mitchell DO Unavailable [phone] Rosamarai Jones MD Primary Care Provider UnavailFrancesco Andrea MD Unavailable [phone] Gabe Carl MD Unavailable [phone] Danielle Alcantar MD Unavailable [phone] [facility] Primary Care Provider Madelaien Mitchell DO Unavailable [phone] Encounter Details Date Type Department Care Team (Late st Contact Info) Description 08/27/2021 [facility] Medical Advice [address] [place] [address] Danielle Wright, PT [address] [address] Social History Tobacco Use Types Packs/Day Years [...] Out COVID-19 04/24/2024 04/24/2024 04/24/2024 6:06 AM SEAM FINISHER Assessment Noted Time PHQ-9 Depression Total Score: 10 022 9:03 AM SEAM FINISHER documented as of this encounter Care Teams Captain Airline Pilot Relationship Specialty Start Date End Date Rosamaria Jones MD PCP - General Internal Medicine 10/06/18 11/27/[address] [address] PCP - General 11/28/23 Madelaine Mitchell DO supervisor rice milling 07/26/16 Francesco Merritt MD [address] [place] [address] Family Medicine - Sports Medicine 12/14/18 Gabe Carl MD [address] [place] [address] [place] [address] Assigned PCP 05/09/21 Danielle Alcantar MD [address] [place] [address]68[address] Assigned Musculoskeletal Provider 07/18/21 02/03/23 Madelaine Mitchell DO [address] [address]6077 Assigned OBGYN Provider 03/09/24 documented as of this encounter
--- OUTSIDE RECORDS SUMMARY | 2024-05-23 11:10 | XMS_ITS | Encounter Summary ---
Author Organization [place] Address [address] [place] [address]. [place] [address] Care Team Providers Care Terrazzo Mechanic Name Role Phone Madelaine Mitchell DO Unavailable Rosamaria Jones MD Primary Care Provider [facility] Francesco Merritt MD Unavailable [phone] Gabe Carl MD Unavailable [phone] Danielle Alcantar MD Unavailable [phone] [facility] Primary Care Provider Madelaine Mitchell DO Unavailable [phone] Encounter Details Date Type Department Care Team (Late st Contact Info) Description 01/08/2023 MyC Medical Advice [facility] [address] [address] Francesco Merritt MD [facility] [address] [place] [address] Social History Tobacco Use Types [...] Out COVID-19 04/24/2024 04/24/2024 04/24/2024 6:06 AM ASSEMBLER SURGICAL GARMENT Assessment Noted Time PHQ-9 Depression Total Score: 21 023 10:16 AM CDT documented as of this encounter Care Teams Terrazzo Mechanic Relationship Specialty Start Date End Date Rosamaria Jones MD PCP - General Internal Medicine 10/06/18 11/27/[address] [address] PCP - General 11/28/23 Madelaine Mitchell DO turning machine set up operator 07/26/16 Francesco Merritt MD [facility] [address] [address] Family Medicine - Sports Medicine 12/14/18 Gabe Carl MD [address] [facility] [place] [address] Assigned PCP 05/09/21 Danielle Alcantar MD [address] [place] [address] Assigned Musculoskeletal Provider 07/18/21 02/03/23 Madelaine Mitchell DO [address] [address] Assigned OBGYN Provider 03/09/24 documented as of this encounter
--- OUTSIDE RECORDS SUMMARY | 2024-05-23 11:10 | XMS_ITS | Clinical Summary ---
Author Organization [facility] Address [address] [place] [address] Care Team Providers Care Maintenance Of Way Superintendent Name Role Phone Madelaine Mitchell DO Unavailable [phone] Francesco Merritt MD Unavailable [phone] Gabe Carl MD Unavailable [phone] [place] [address] Primary Care Provider Madelaine Mitchell DO Unavailable [phone] Allergies Active Allergy Reactions Criticality Noted Date [...] (ASTELIN) 0.1 % nasal sprayIndication s:Post-nasal drip [place] 1 spray into both nostrils 2 times daily 1 Bottle 11 10/23/19 19 Active metFORMIN (GLUCOPHAGE-XR) 500 MG 24 hr tabletIndicatio ns:PCOS (polycystic ovarian syndrome) TAKE 4 TABLETS BY MOUTH DAILY 360 tablet 1 04/08/20 19 Active nystatin (MYCOSTATIN) 477641 UNIT/ML suspension TAKE 6 ML BY MOUTH [...] (07/14/2021): Added automatically from request for surgery [id number] 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 Plan colp 04/25/18 [place] - no visible lesions, no bx. Plan [...] Type Department Care Team Description 05/03/2024 Refill [facility] [address] [place] [id number] Madelaine Mitchell DO Medication Refill 04/24/2024 4:35 AM MANAGER CARD - 04/24/2024 6:56 AM MANAGER CARD Emergency [facility] [address] [place] [address] Jose Price MD Alcohol withdrawal syndrome without complication (H); Anxiety Discharge Disposition: Home or Self Care 04/24/2024 Travel 03/27/2024 MyC Refill [facility] [address] [place] [address] Madelaine Mitchell, DO Refill Request 03/12/2024 MyC Medical Advice [facility] [address] [place] [address] Madelaine Mitchell, DO Medication Request 03/12/2024 MyC Refill [facility] [address] [place] [address] Madelaine Mitchell, DO Refill Request from Last [...] Comments Blood Pressure 150/89 04/24/2024 6:56 AM MANAGER CARD Pulse 85 04/24/2024 6:56 AM MANAGER CARD Temperature 36.9 C (98.4 F) 04/24/2024 4:30 AM MANAGER CARD Respiratory Rate 18 04/24/2024 6:56 AM MANAGER CARD Oxygen Saturation 99% 04/24/2024 6:56 AM MANAGER CARD Inhaled Oxygen Concentration - - Weight 90.7 kg (200 lb) 04/24/2024 4:30 AM MANAGER CARD Height 165.1 cm (5' 5) 04/24/2024 4:30 AM MANAGER CARD Body Mass Index 33.28 04/24/2024 4:30 AM MANAGER CARD Plan of Treatment Health Maintenance Due Date [...] PLATELETS & DIFFERENTIAL STAT 04/24/2024 5:33 AM MANAGER CARD CBC WITH PLATELETS AND DIFFERENTIAL STAT 04/24/2024 5:33 AM MANAGER CARD INFLUENZA A/B, RSV AND SARS-COV2 PCR STAT 04/24/2024 5:23 AM MANAGER CARD XR CHEST 2 VIEWS STAT 04/24/2024 5:07 AM MANAGER CARD EXTRA RED TOP TUBE STAT 04/24/2024 4: 57 AM MANAGER CARD EXTRA BLUE TOP TUBE STAT 04/24/2024 4 :57 AM MANAGER CARD EXTRA TUBE STAT 04/24/2024 4:57 AM MANAGER CARD TROPONIN T, HIGH SENSITIVITY STAT 04/24/2024 4:57 AM MANAGER CARD BASIC METABOLIC PANEL STAT 04/24/2024 4:57 AM MANAGER CARD EKG 12-LEAD, TRACING ONLY STAT 04/24/2024 4:35 AM MANAGER CARD HPV HIGH RISK TYPES DNA CERVICAL Routine 03/28/2018 9:20 AM MANAGER CARD PCOS (polycystic ovarian syndrome) PAP IMAGED THIN LAYER SCREEN Routine 03/28/2018 9:09 AM MANAGER CARD Encounter for general adult medical examination with abnormal findings HIV ANTIGEN ANTIBODY COMBO Routine 05/05/2016 9:51 AM MANAGER CARD test positive from Last 3 Months or Most Recently Relevant to Health Maintenance Results * CBC with platelets and differential (04/24/2024 5:33 AM MANAGER CARD) WBC Count 6.6 4.0 - 11.0 10e3/uL 04/24/2024 5:42 AM MANAGER CARD [facility] RBC Count 4.06 3.80 - 5.20 10e6/uL 04/24/2024 5:42 AM MANAGER CARD [facility] Hemoglobin 12.3 11.7 - 15.7 g/dL 04/24/2024 5:42 AM MANAGER CARD [facility] Hematocrit 37.4 35.0 - 47.0 % 04/24/2024 5:42 AM MANAGER CARD [facility] MCV 92 78 - 100 fL 04/24/2024 5:42 AM MANAGER CARD [facility] MCH 30.3 26.5 - 33.0 pg 04/24/2024 5:42 AM MANAGER CARD [facility] MCHC 32.9 31.5 - 36.5 g/dL 04/24/2024 5:42 AM MANAGER CARD [facility] RDW 13.2 10.0 - 15.0 % 04/24/2024 5:42 AM MANAGER CARD [facility] Platelet Count 230 150 - 450 10e3/uL 04/24/2024 5:42 AM MANAGER CARD [facility] % Neutrophils 53 % 04/24/2024 5:42 AM MANAGER CARD [facility] % Lymphocytes 38 % 04/24/2024 5:42 AM MANAGER CARD [facility] % Monocytes 7 % 04/24/2024 5:42 AM MANAGER CARD [facility] % Eosinophils 1 % 04/24/2024 5:42 AM MANAGER CARD [facility] % Basophils 1 % 04/24/2024 5:42 AM MANAGER CARD [facility] % Immature Granulocytes 1 % 04/24/2024 5:42 AM MANAGER CARD [facility] NRBCs per 100 WBC 0 <1 /100 025 5:42 AM MANAGER CARD [facility] Absolute Neutrophils 3.5 1.6 - 8.3 10e3/uL 04/24/2024 5:42 AM MANAGER CARD [facility] Absolute Lymphocytes 2.5 0.8 - 5.3 10e3/uL 04/24/2024 5:42 AM MANAGER CARD [facility] Absolute Monocytes 0.5 0.0 - 1.3 10e3/uL 04/24/2024 5:42 AM MANAGER CARD [facility] Absolute Eosinophils 0.1 0.0 - 0.7 10e3/uL 04/24/2024 5:42 AM MANAGER CARD [facility] Absolute Basophils 0.0 0.0 - 0.2 10e3/uL 04/24/2024 5:42 AM MANAGER CARD [facility] Absolute Immature Granulocytes 0.0 <=0.4 10e3/uL 04/24/2024 5:42 AM MANAGER CARD [facility] Absolute NRBCs 0.0 10e3/uL 04/24/2024 5:42 AM MANAGER CARD [facility] Blood BLOOD SPECIMEN / Unknown Venipuncture / Unknown 04/24/2024 5:33 AM MANAGER CARD 04/24/2024 5:39 AM MANAGER CARD us Jose Price MD LAB - BLOOD ORDER MENDEZ Final Result [facility] [address] [facility] Lab (1st floor, no room number) [place] [address], [facility] * Influenza A/B, RSV and SARS-CoV2 PCR (COVID-19) Nasopharyngeal (04/24/2024 5:23 AM MANAGER CARD) [facility] Influenza A PCR Negative Negative 04/24/2024 6:06 AM MANAGER CARD [facility] Influenza B PCR Negative Negative 04/24/2024 6:06 AM MANAGER CARD [facility] RSV PCR Negative Negative 04/24/2024 6:06 AM MANAGER CARD [facility] SARS CoV2 PCR Negative Negative 04/24/2024 6:06 AM MANAGER CARD [facility] Comment:NEGATIVE: SARS-CoV-2 (COVID-19) RNA not detected, presumed negative. Swab NASOPHARYNGEAL STRUCTURE / Unknown Non-blood Collection / Unknown 04/24/2024 5:23 AM MANAGER CARD 04/24/2024 5:29 AM MANAGER CARD Narrative [facility] - 04/24/2024 6:06 AM MANAGER CARD Testing was performed using the Xpert Xpress CoV2/Flu/RSV Assay on the [employer] GeneXpert Instrument. This test should be ordered [...] management. This test was validated by the [facility]. These laboratories are certified under the Clinical Laboratory Improvement Amendments of 1988 (CLIA-88) as qualified to perfom high complexity laboratory testing. Jose Price MD LAB - MICRO GENER AL ORDERABLES Final Result [facility] [address] [facility] Lab (1st floor, no room number) [place] [address], [facility] * XR Chest 2 Views (04/24/2024 5:07 AM MANAGER CARD) Anatomical Region Laterality Modality Chest Computed Radiogr aphy 04/24/2024 5:07 AM MANAGER CARD Impressions 04/24/2024 5:13 AM MANAGER CARD IMPRESSION: Normal heart size. Suture material noted in the central aspect of the right lung with opacification of the anteromedial aspect of the right lung base which may be postoperative in nature. Lungs otherwise clear. No pneumothorax or pleural effusion. Narrative 04/24/2024 5:13 AM MANAGER CARD EXAM: XR CHEST 2 VIEWS LOCATION: [facility] DATE: 04/24/2024 INDICATION: chest pain COMPARISON: 09/15/2022 Procedure Note Yoav Osei MD - 04/24/2024 EXAM: XR CHEST 2 VIEWS LOCATION: [facility] DATE: 04/24/2024 INDICATION: chest pain COMPARISON: [...] Extra Red Top Tube (04/24/2024 4:57 AM MANAGER CARD) Hold Specimen [facility] 04/24/2024 6:06 AM MANAGER CARD LABORATORY Blood BLOOD SPECIMEN / Unknown Venipuncture / Unknown 04/24/2024 4:57 AM MANAGER CARD 04/24/2024 5:01 AM MANAGER CARD us Jose Price MD LAB - BLOOD ORDER MENDEZ Final Result Performing Organization Address City/State/[facility] Co de Phone Number [facility] [address] Lab (1st floor, no room number) [place] [address] * Extra Blue Top Tube (04/24/2024 4:57 AM MANAGER CARD) Hold Specimen [facility] 04/24/2024 6:06 AM MANAGER CARD LABORATORY Blood BLOOD SPECIMEN / Unknown Venipuncture / Unknown 04/24/2024 4:57 AM MANAGER CARD 04/24/2024 5:01 AM MANAGER CARD Jose Price MD LAB - BLOOD ORDER MENDEZ Final Result LABORATORY [facility] [address] Lab (1st floor, no room number) [place] [address] * Troponin T, High Sensitivity (04/24/2024 4:57 AM MANAGER CARD) Troponin T, High Sensitivity <6 <=14 ng/L 04/24/2024 5:26 AM MANAGER CARD LABORATORY Comment: Either a High Sensitivity Troponin [...] Unknown Venipuncture / Unknown 04/24/2024 4:57 AM MANAGER CARD 04/24/2024 5:01 AM MANAGER CARD Jose Price MD LAB - BLOOD ORDER MENDEZ Final Result LABORATORY [facility] [address] Lab (1st floor, no room number) [place] [address] * (ABNORMAL) Basic metabolic panel (04/24/2024 4:57 AM MANAGER CARD) Sodium 138 135 - 145 mmol/L 04/24/2024 5:26 AM MANAGER CARD LABORATORY Potassium 4.4 3.4 - 5.3 mmol/L 04/24/2024 5:26 AM MANAGER CARD LABORATORY Chloride 102 98 - 107 mmol/L 04/24/2024 5:26 AM MANAGER CARD LABORATORY Carbon Dioxide (CO2) 22 22 - 29 mmol/L 04/24/2024 5:26 AM MANAGER CARD LABORATORY Anion Gap 14 7 - 15 mmol/L 04/24/2024 5:26 AM [facility] Urea Nitrogen 9.9 6.0 - 20.0 mg/dL 04/24/2024 5:26 AM [facility] Creatinine 0.61 0.51 - 0.95 mg/dL 04/24/2024 5:26 AM [facility] GFR Estimate >90 >60 mL/min/1.7 3m2 04/24/2024 5:26 AM [facility] Comment:eGFR calculated usin 2020 CKD-EPI equation. Calcium 9.3 8.8 - 10.4 mg/dL 04/24/2024 5:26 AM [facility] Comment:Reference intervals for this test were updated on 10/31/2023 to reflect our healthy population more accurately. There may be differences in the flagging of prior results with similar values performed with this method. Those prior results can be interpreted in the context of the updated reference intervals. Glucose 100(H) 70 - 99 mg/dL 04/24/2024 5:26 AM [facility] Blood BLOOD SPECIMEN / Unknown Venipuncture / Unknown 04/24/2024 4:57 AM MANAGER CARD 04/24/2024 5:01 AM MANAGER CARD us Jose Price MD LAB - BLOOD ORDER MENDEZ Final Result LABORATORY [facility] [address] [facility] Lab (1st floor, no room number) [place] [address] * EKG 12-lead, tracing only (04/24/2024 4:35 AM MANAGER CARD) Systolic Blood Pressure mmHg RADIOLOGY RESULTS Diastolic Blood Pressure mmHg RADIOLOGY RESULTS Ventricular Rate 85 BPM RAD IOLOGY RESULTS Atrial Rate 85 BPM RADIOLOG Y RESULTS MI Interval 152 ms RADIOLOG Y RESULTS QRS Duration 76 ms RADIOLO GY RESULTS QT 344 ms RADIOLOGY RESULTS QTc 409 ms RADIOLOGY RESULTS P [place] 12 degrees RADIOLOGY RESULTS R AXIS 39 degrees RADIOLOGY RESULTS T [place] 18 degrees RADIOLOGY RESULTS Interpretation ECG Sinus rhythm Normal ECG When compared with ECG of 05-Jan-2024 01:13, Vent. rate has increased by 33 bpm Unconfirmed report - interpretation of this ECG is computer generated - see medical record for final interpretation Confirmed by - EMERGENCY ROOM, PHYSICIAN ([id number]), publication editor YEISON LAU ([id number]) on 04/24/2024 6:37:23 AM RADIOLOGY RESULTS 04/24/2024 4:35 AM MANAGER CARD 04/24/2024 6:37 AM MANAGER CARD us Jose Price MD ECG ORDERABLES E dited Result - Final RADIOLOGY RESULTS * (ABNORMAL) HPV High Risk Types DNA Cervical (03/28/2018 9:20 AM MANAGER CARD) HPV Source [facility] 04/03/2018 7:38 AM MANAGER CARD [facility] HPV 16 DNA Negative NEG^Nega tive 04/03/2018 4:18 PM MANAGER CARD [facility] HPV 18 DNA Negative NEG^Nega tive 04/03/2018 4:18 PM MANAGER CARD [facility] Other HR HPV Positive(A) NEG^Nega tive 04/03/2018 4:18 PM MANAGER CARD [facility] Final Diagnosis This patient's sample is positive for other HR HPV DNA (types 31, 33, 35, 39, 45, 51, 52, 56, 58, 59, 66 or 68), not HPV 16 or HPV 18 DNA. This result requires clinical correlation with concurrent cytology findings. 04/03/2018 4:18 PM MANAGER CARD [facility] Comment: This test was developed and its performance characteristics determined by the [facility], Molecular Diagnostics Laboratory. It has not [...] Specimen Description Cervical Cells 04/03/2018 7:38 AM MANAGER CARD [facility] Comment:[id number] 03/28/2018 9:20 AM MANAGER CARD 03/28/2018 2:56 PM MANAGER CARD us Tristen Spann [employer] [facility] - BLOOD ORDERABL ES Final Result [facility] [address] [place] [address] * (ABNORMAL) Pap imaged thin layer screen reflex to HPV if ASCUS - recommend age 25 - 29 (03/28/2018 9:09 AM MANAGER CARD) PAP ASC-US(A) JOSE JUAN Singh Report Patient Name: MADI YANG MR#: [id number] Specimen #: [id number] Collected: 03/28/2018 Received: 03/29/2018 Reported: 04/02/2018 14:41 [...] adenocarcinomas or other cancers. TESTING LAB LOCATION: [facility] [address] [id number] COLLECTION SITE: Client: [facility] Location: RIIM (R) [facility] Cytologic material (specimen) 03/28/2018 9:09 AM MANAGER CARD 03/29/2018 11:25 AM MANAGER CARD us rTisten Spann [facility] - [facility] L SPECIMEN Final Result [facility] * HIV Antigen Antibody Combo (05/05/2016 9:51 AM MANAGER CARD) HIV Antigen Antibody Combo Nonreactive HIV-1 p24 Ag & HIV-1/HIV-2 Ab Not Detected NR [facility] Blood specimen (specimen) 05/05/2016 9:51 AM MANAGER CARD 05/05/2016 9:56 AM MANAGER CARD us Madelaine Mitchell DO LAB - BLOOD ORDERABLES Fi nal Result Performing Organization Address City/[facility]/ZIP Co de Phone Number [address] from Last 3 Months or Most Recently Relevant to Health Maintenance Insurance [facility] OUT OF STATE BCBS OUT OF STATE BCBS OUT OF STATE Care Teams Maintenance Of Way Superintendent Relationship Specialty Start Date End Date [facility], [address] [address] PCP - General 11/28/23 Madelaine Mitchell DO copper 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 [facility] [address] [place] [address] Family Medicine - Sports Medicine 12/14/18 Gabe Carl MD [address] [place] [address] Assigned PCP 05/09/21 Madelaine Mitchell DO [address] [facility] [address] [place] [address] Assigned OBGYN Provider 03/09/24
--- OUTSIDE RECORDS SUMMARY | 2024-05-23 11:10 | XMS_ITS | Referral Summary ---
Author Organization [place] Address [address] [place] [address] Care Team Providers Care Heel Cementer Name Role Phone Madelaine Mitchell DO Unavailable Francesco Merritt MD Unavailable Gabe Carl MD Unavailable [phone] [place] [address] Primary Care Provider Madelaine Mitchell DO Unavailable Encounters Date Type Department Care Team Description 05/03/2024 Refill [facility] [address] [facility] [address] [place] [address] Madelaine Mitchell DO Medication Refill 04/24/2024 Travel 04/24/2024 4:35 AM CIVIL DESIGN SPECIALIST - 04/24/2024 6:56 AM CIVIL DESIGN SPECIALIST Emergency [facility] Emergency Dept [address] [place] [address] Jose Price MD Alcohol withdrawal syndrome without complication (H); Anxiety Discharge Disposition: Home or Self Care 03/27/2024 MyC Refill [facility] [address] [facility] [address] [place] [address] Madelaine Mitchell DO Refill Request 03/12/2024 MyC Medical Advice [facility] [address] [place] [address] Madelaine Mitchell, Medication Request 03/12/2024 MyC Refill [facility] [address] [facility] [address] [place] [address] Madelaine Mitchell, Refill Request from Last 3 [...] (ASTELIN) 0.1 % nasal sprayIndication s:Post-nasal drip [place] 1 spray into both nostrils 2 times daily 1 Bottle 11 10/23/19 19 Active metFORMIN (GLUCOPHAGE-XR) 500 MG 24 hr tabletIndicatio ns:PCOS (polycystic ovarian syndrome) TAKE 4 TABLETS BY MOUTH DAILY 360 tablet 1 04/08/20 19 Active nystatin (MYCOSTATIN) 392197 UNIT/ML suspension TAKE 6 ML BY MOUTH [...] (07/14/2021): Added automatically from request for surgery [id number] 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 Plan colp 04/25/18 [place] - no visible lesions, no bx. Plan pap due in 1 year pap from previous pap 03/13/19 Pap reminder letter sent. ([facility]) 03/14/19 TE states pt is 25 weeks (ASAD 06/27/19), no appts in chart. ([facility]) CCT tracking Headache 12/16/2016 PCOS (polycystic ovarian [...] Comments Blood Pressure 150/89 04/24/2024 6:56 AM CIVIL DESIGN SPECIALIST Pulse 85 04/24/2024 6:56 AM CIVIL DESIGN SPECIALIST Temperature 36.9 C (98.4 F) 04/24/2024 4:30 AM CIVIL DESIGN SPECIALIST Respiratory Rate 18 04/24/2024 6:56 AM CIVIL DESIGN SPECIALIST Oxygen Saturation 99% 04/24/2024 6:56 AM CIVIL DESIGN SPECIALIST Inhaled Oxygen Concentration - - Weight 90.7 kg (200 lb) 04/24/2024 4:30 AM CIVIL DESIGN SPECIALIST Height 165.1 cm (5' 5) 04/24/2024 4:30 AM CIVIL DESIGN SPECIALIST Body Mass Index 33.28 04/24/2024 4:30 AM CIVIL DESIGN SPECIALIST Plan of Treatment Not on file Procedures Procedure Name Priority Date/Time Associated Diagnosis Comments CBC WITH PLATELETS & DIFFERENTIAL STAT 04/24/2024 5:33 AM CIVIL DESIGN SPECIALIST CBC WITH PLATELETS AND DIFFERENTIAL STAT 04/24/2024 5:33 AM CIVIL DESIGN SPECIALIST INFLUENZA A/B, RSV AND SARS-COV2 PCR STAT 04/24/2024 5:23 AM CIVIL DESIGN SPECIALIST XR CHEST 2 VIEWS STAT 04/24/2024 5:07 AM CIVIL DESIGN SPECIALIST EXTRA RED TOP TUBE STAT 04/24/2024 4: 57 AM CIVIL DESIGN SPECIALIST EXTRA BLUE TOP TUBE STAT 04/24/2024 4 :57 AM CIVIL DESIGN SPECIALIST EXTRA TUBE STAT 04/24/2024 4:57 AM CIVIL DESIGN SPECIALIST TROPONIN T, HIGH SENSITIVITY STAT 04/24/2024 4:57 AM CIVIL DESIGN SPECIALIST BASIC METABOLIC PANEL STAT 04/24/2024 4:57 AM CIVIL DESIGN SPECIALIST EKG 12-LEAD, TRACING ONLY STAT 04/24/2024 4:35 AM CIVIL DESIGN SPECIALIST HPV HIGH RISK TYPES DNA CERVICAL Routine 03/28/2018 9:20 AM CIVIL DESIGN SPECIALIST PCOS (polycystic ovarian syndrome) PAP IMAGED THIN LAYER SCREEN Routine 03/28/2018 9:09 AM CIVIL DESIGN SPECIALIST Encounter for general adult medical examination with abnormal findings HIV ANTIGEN ANTIBODY COMBO Routine 05/05/2016 9:51 AM CIVIL DESIGN SPECIALIST test positive from Last 3 Months or Most Recently Relevant to Health Maintenance Results * CBC with platelets and differential (04/24/2024 5:33 AM CIVIL DESIGN SPECIALIST) WBC Count 6.6 4.0 - 11.0 10e3/uL 04/24/2024 5:42 AM CIVIL DESIGN SPECIALIST [facility] RBC Count 4.06 3.80 - 5.20 10e6/uL 04/24/2024 5:42 AM CIVIL DESIGN SPECIALIST [facility] Hemoglobin 12.3 11.7 - 15.7 g/dL 04/24/2024 5:42 AM CIVIL DESIGN SPECIALIST [facility] Hematocrit 37.4 35.0 - 47.0 % 04/24/2024 5:42 AM CIVIL DESIGN SPECIALIST [facility] MCV 92 78 - 100 fL 04/24/2024 5:42 AM CIVIL DESIGN SPECIALIST [facility] MCH 30.3 26.5 - 33.0 pg 04/24/2024 5:42 AM CIVIL DESIGN SPECIALIST [facility] MCHC 32.9 31.5 - 36.5 g/dL 04/24/2024 5:42 AM CIVIL DESIGN SPECIALIST [facility] RDW 13.2 10.0 - 15.0 % 04/24/2024 5:42 AM CIVIL DESIGN SPECIALIST [facility] Platelet Count 230 150 - 450 10e3/uL 04/24/2024 5:42 AM CIVIL DESIGN SPECIALIST [facility] % Neutrophils 53 % 04/24/2024 5:42 AM CIVIL DESIGN SPECIALIST [facility] % Lymphocytes 38 % 04/24/2024 5:42 AM CIVIL DESIGN SPECIALIST [facility] % Monocytes 7 % 04/24/2024 5:42 AM CIVIL DESIGN SPECIALIST [facility] % Eosinophils 1 % 04/24/2024 5:42 AM CIVIL DESIGN SPECIALIST [facility] % Basophils 1 % 04/24/2024 5:42 AM CIVIL DESIGN SPECIALIST [facility] % Immature Granulocytes 1 % 04/24/2024 5:42 AM CIVIL DESIGN SPECIALIST [facility] NRBCs per 100 WBC 0 <1 /100 025 5:42 AM CIVIL DESIGN SPECIALIST [facility] Absolute Neutrophils 3.5 1.6 - 8.3 10e3/uL 04/24/2024 5:42 AM CIVIL DESIGN SPECIALIST [facility] Absolute Lymphocytes 2.5 0.8 - 5.3 10e3/uL 04/24/2024 5:42 AM CIVIL DESIGN SPECIALIST [facility] Absolute Monocytes 0.5 0.0 - 1.3 10e3/uL 04/24/2024 5:42 AM CIVIL DESIGN SPECIALIST [facility] Absolute Eosinophils 0.1 0.0 - 0.7 10e3/uL 04/24/2024 5:42 AM CIVIL DESIGN SPECIALIST [facility] Absolute Basophils 0.0 0.0 - 0.2 10e3/uL 04/24/2024 5:42 AM CIVIL DESIGN SPECIALIST [facility] Absolute Immature Granulocytes 0.0 <=0.4 10e3/uL 04/24/2024 5:42 AM CIVIL DESIGN SPECIALIST [facility] Absolute NRBCs 0.0 10e3/uL 04/24/2024 5:42 AM CIVIL DESIGN SPECIALIST [facility] Blood BLOOD SPECIMEN / Unknown Venipuncture / Unknown 04/24/2024 5:33 AM CIVIL DESIGN SPECIALIST 04/24/2024 5:39 AM CIVIL DESIGN SPECIALIST us Jose Price MD LAB - BLOOD ORDER MENDEZ Final Result LABORATORY [facility] [address] [facility] Lab (1st floor, no room number) [place] [address] * Influenza A/B, RSV and SARS-CoV2 PCR (COVID-19) Nasopharyngeal (04/24/2024 5:23 AM CIVIL DESIGN SPECIALIST) Influenza A PCR Negative Negative 04/24/2024 6:06 AM CIVIL DESIGN SPECIALIST [facility] Influenza B PCR Negative Negative 04/24/2024 6:06 AM CIVIL DESIGN SPECIALIST [facility] RSV PCR Negative Negative 04/24/2024 6:06 AM CIVIL DESIGN SPECIALIST [facility] SARS CoV2 PCR Negative Negative 04/24/2024 6:06 AM CIVIL DESIGN SPECIALIST [facility] Comment:NEGATIVE: SARS-CoV-2 (COVID-19) RNA not detected, presumed negative. Swab NASOPHARYNGEAL STRUCTURE / Unknown Non-blood Collection / Unknown 04/24/2024 5:23 AM CIVIL DESIGN SPECIALIST 04/24/2024 5:29 AM CIVIL DESIGN SPECIALIST Narrative [facility] - 04/24/2024 6:06 AM CIVIL DESIGN SPECIALIST Testing was performed using the Xpert Xpress CoV2/Flu/RSV Assay on the FlixwagonXpert Instrument. This test should be ordered for [...] management. This test was validated by the [facility]. These laboratories are certified under the Clinical Laboratory Improvement Amendments of 1988 (CLIA-88) as qualified to perfom high complexity laboratory testing. Jose Price MD LAB - MICRO GENER AL ORDERABLES Final Result LABORATORY [facility] [address] [facility] Lab (1st floor, no room number) [place] [address], [facility] * XR Chest 2 Views (04/24/2024 5:07 AM CIVIL DESIGN SPECIALIST) Anatomical Region Laterality Modality Chest Computed Radiogr aphy 04/24/2024 5:07 AM CIVIL DESIGN SPECIALIST Impressions 04/24/2024 5:13 AM CIVIL DESIGN SPECIALIST IMPRESSION: Normal heart size. Suture material noted in the central aspect of the right lung with opacification of the anteromedial aspect of the right lung base which may be postoperative in nature. Lungs otherwise clear. No pneumothorax or pleural effusion. Narrative 04/24/2024 5:13 AM CIVIL DESIGN SPECIALIST EXAM: XR CHEST 2 VIEWS LOCATION: [facility] DATE: 04/24/2024 INDICATION: chest pain COMPARISON: 09/15/2022 Procedure Note Yoav Osei MD - 04/24/2024 EXAM: XR CHEST 2 VIEWS LOCATION: [facility] DATE: 04/24/2024 INDICATION: chest pain COMPARISON: 09/15/2022 IMPRESSION: Normal heart size. Suture material noted in the central aspectof the right lung with opacification of the anteromedial aspect of theright lung base which may be postoperative in nature. Lungs otherwiseclear. No pneumothorax or pleural effusion. Jose Price MD IMG DIAGNOSTIC IM AGING ORDERABLES Final Result * Extra Red Top Tube (04/24/2024 4:57 AM CIVIL DESIGN SPECIALIST) Hold Specimen [facility] 04/24/2024 6:06 AM CIVIL DESIGN SPECIALIST [facility] Blood BLOOD SPECIMEN / Unknown Venipuncture / Unknown 04/24/2024 4:57 AM CIVIL DESIGN SPECIALIST 04/24/2024 5:01 AM CIVIL DESIGN SPECIALIST Jose Price MD LAB - BLOOD ORDER MENDEZ Final Result [facility] Acute Care Lab [address] Lab (1st floor, no room number) [place] [address], [facility] * Extra Blue Top Tube (04/24/2024 4:57 AM CIVIL DESIGN SPECIALIST) Hold Specimen [facility] 04/24/2024 6:06 AM CIVIL DESIGN SPECIALIST [facility] Blood BLOOD SPECIMEN / Unknown Venipuncture / Unknown 04/24/2024 4:57 AM CIVIL DESIGN SPECIALIST 04/24/2024 5:01 AM CIVIL DESIGN SPECIALIST Jose Price MD LAB - BLOOD ORDER MENDEZ Final Result [facility] [address] Lab (1st floor, no room number) [place] [address], [facility] * Troponin T, High Sensitivity (04/24/2024 4:57 AM CIVIL DESIGN SPECIALIST) Troponin T, High Sensitivity <6 <=14 ng/L 04/24/2024 5:26 AM CIVIL DESIGN SPECIALIST LABORATORY Comment: Either a High Sensitivity Troponin [...] Unknown Venipuncture / Unknown 04/24/2024 4:57 AM CIVIL DESIGN SPECIALIST 04/24/2024 5:01 AM CIVIL DESIGN SPECIALIST Jose Price MD LAB - BLOOD ORDER MENDEZ Final Result Performing Organization Address City/[facility]/ZIP Co de Phone Number [facility] [address] Lab (1st floor, no room number) [place] [address], [facility] * (ABNORMAL) Basic metabolic panel (04/24/2024 4:57 AM CIVIL DESIGN SPECIALIST) Sodium 138 135 - 145 mmol/L 04/24/2024 5:26 AM CIVIL DESIGN SPECIALIST LABORATORY Potassium 4.4 3.4 - 5.3 mmol/L 04/24/2024 5:26 AM CIVIL DESIGN SPECIALIST LABORATORY Chloride 102 98 - 107 mmol/L 04/24/2024 5:26 AM CIVIL DESIGN SPECIALIST LABORATORY Carbon Dioxide (CO2) 22 22 - 29 mmol/L 04/24/2024 5:26 AM [facility] Anion Gap 14 7 - 15 mmol/L 04/24/2024 5:26 AM [facility] Urea Nitrogen 9.9 6.0 - 20.0 mg/dL 04/24/2024 5:26 AM [facility] Creatinine 0.61 0.51 - 0.95 mg/dL 04/24/2024 5:26 AM [facility] GFR Estimate >90 >60 mL/min/1.7 3m2 04/24/2024 5:26 AM [facility] Comment:eGFR calculated usin 2020 CKD-EPI equation. Calcium 9.3 8.8 - 10.4 mg/dL 04/24/2024 5:26 AM [facility] Comment:Reference intervals for this test were updated on 10/31/2023 to reflect our healthy population more accurately. There may be differences in the flagging of prior results with similar values performed with this method. Those prior results can be interpreted in the context of the updated reference intervals. Glucose 100(H) 70 - 99 mg/dL 04/24/2024 5:26 AM [facility] Blood BLOOD SPECIMEN / Unknown Venipuncture / Unknown 04/24/2024 4:57 AM CIVIL DESIGN SPECIALIST 04/24/2024 5:[address] [facility] us Jose Price MD LAB - BLOOD ORDER MENDEZ Final Result LABORATORY [facility] [address] Lab (1st floor, no room number) [place] [address] * EKG 12-lead, tracing only (04/24/2024 4:35 AM CIVIL DESIGN SPECIALIST) Systolic Blood Pressure mmHg RADIOLOGY RESULTS Diastolic Blood Pressure mmHg RADIOLOGY RESULTS Ventricular Rate 85 BPM RAD IOLOGY RESULTS Atrial Rate 85 BPM RADIOLOG Y RESULTS IA Interval 152 ms RADIOLOG Y RESULTS QRS Duration 76 ms RADIOLO GY RESULTS QT 344 ms RADIOLOGY RESULTS QTc 409 ms RADIOLOGY RESULTS P [place] 12 degrees RADIOLOGY RESULTS R AXIS 39 degrees RADIOLOGY RESULTS T [place] 18 degrees RADIOLOGY RESULTS Interpretation ECG Sinus rhythm Normal ECG When compared with ECG of 05-Jan-2024 01:13, Vent. rate has increased by 33 bpm Unconfirmed report - interpretation of this ECG is computer generated - see medical record for final interpretation Confirmed by - EMERGENCY ROOM, PHYSICIAN ([id number]), brands editor YEISON LAU ([id number]) on 04/24/2024 6:37:23 AM RADIOLOGY RESULTS 04/24/2024 4:35 AM CIVIL DESIGN SPECIALIST 04/24/2024 6:37 AM CIVIL DESIGN SPECIALIST Jose Price MD ECG ORDERABLES E dited Result - Final RADIOLOGY RESULTS * (ABNORMAL) HPV High Risk Types DNA Cervical (03/28/2018 9:20 AM CIVIL DESIGN SPECIALIST) HPV Source [facility] 04/03/2018 7:38 AM CIVIL DESIGN SPECIALIST [facility] HPV 16 DNA Negative NEG^Nega tive 04/03/2018 4:18 PM CIVIL DESIGN SPECIALIST [facility] HPV 18 DNA Negative NEG^Nega tive 04/03/2018 4:18 PM [facility] Other HR HPV Positive(A) NEG^Nega tive 04/03/2018 4:18 PM CIVIL DESIGN SPECIALIST [facility] Final Diagnosis This patient's sample is positive for other HR HPV DNA (types 31, 33, 35, 39, 45, 51, 52, 56, 58, 59, 66 or 68), not HPV 16 or HPV 18 DNA. This result requires clinical correlation with concurrent cytology findings. 04/03/2018 4:18 PM [facility] Comment: This test was developed and its performance characteristics determined by the [facility], Molecular Diagnostics Laboratory. It has not [...] Specimen Description Cervical Cells 04/03/2018 7:38 AM CIVIL DESIGN SPECIALIST [facility] Comment:[id number] 03/28/2018 9:20 AM CIVIL DESIGN SPECIALIST 03/28/2018 2:56 PM CIVIL DESIGN SPECIALIST us Tristen Spann WAREHOUSE RECORD CLERK DIET ASSISTANT LAB - BLOOD ORDERABL ES Final Result [facility] [address] [place] [address] * (ABNORMAL) Pap imaged thin layer screen reflex to HPV if ASCUS - recommend age 25 - 29 (03/28/2018 9:09 AM CIVIL DESIGN SPECIALIST) PAP ASC-US(A) JOSE JUAN Singh Report Patient Name: MADI YANG MR#: [id number] Specimen #: [id number] Collected: 03/28/2018 Received: 03/29/2018 Reported: 04/02/2018 14:41 [...] [facility] HISTORY: LMP: 03/05/2018 A previous normal pap Date of Last Pap: 01/01/2015, Papanicolaou Test Limitations: Cervical cytology is a screening test with limited sensitivity; regular screening is critical for cancer prevention; Pap tests are primarily effective for the diagnosis/preventi on of squamous cell carcinoma, not adenocarcinomas or other cancers. TESTING LAB LOCATION: [facility] [address] [place] [address] COLLECTION SITE: Client: [facility] Location: RIIM (R) COPATH Cytologic material (specimen) 03/28/2018 9:09 AM CIVIL DESIGN SPECIALIST 03/29/2018 11:25 AM CIVIL DESIGN SPECIALIST us Tristen Spann WAREHOUSE RECORD CLERK DIET ASSISTANT LAB - [facility] SPECIMEN Final Result COPATH * HIV Antigen Antibody Combo (05/05/2016 9:51 AM CIVIL DESIGN SPECIALIST) HIV Antigen Antibody Combo Nonreactive HIV-1 p24 Ag & HIV-1/HIV-2 Ab Not Detected NR [facility] Blood specimen (specimen) 05/05/2016 9:51 AM CIVIL DESIGN SPECIALIST 05/05/2016 9:56 AM CIVIL DESIGN SPECIALIST us Madelaine Mitchell DO LAB - BLOOD ORDERABLES Fi nal Result Performing Organization Address City/[facility]/ZIP Co de Phone Number [facility] [address] from Last 3 Months or Most Recently Relevant to Health Maintenance Insurance [facility] OUT OF STATE BCBS OUT OF STATE BCBS OUT OF STATE Care Teams Heel Cementer Relationship Specialty Start Date End Date [facility], [address] [address] PCP - General 11/28/23 Madelaine Mitchell DO insurance sales representative 07/26/16 Francesco Merritt MD [address] [place] [address] Family Medicine - Sports Medicine 12/14/18 Gabe Carl MD [address] [facility] [place] [address] Assigned PCP 05/09/21 Madelaine Mitchell DO [address] [facility] [address] [place] [address] Assigned OBGYN Provider 03/09/24
--- OUTSIDE RECORDS SUMMARY | 2024-05-23 11:10 | XMS_ITS | Encounter Summary ---
Author Organization [facility] Address [address] [place] [address]. [place] [address] Care Team Providers Care Premises Technician Name Role Phone Madelaine Mitchell DO Unavailable [phone] Francesco Merritt MD Unavailable Gabe Carl MD Unavailable [phone] [place] [address] [facility] Primary Care Provider Madelaine Mitchell DO Unavailable Encounter Details Date Type Department Care Team (Late st Contact Info) Description 02/20/2024 MyC Medical Advice [facility] [place] [address] [place] [phone] Madelaine Mitchell DO [address] [place] [address] Social History Tobacco Use Types Packs/Day Years [...] Please see mychart: Pt response CASTRO Baez E REPAIRER AIR * Telephone Encounter - Marcella Arce RN - 02/22/2024 8:01 AM CST Please see mychart message: Pt response CASTRO Baez E REPAIRER AIR * Telephone Encounter - Marcella Arce RN - 02/21/2024 11:00 AM BRAKE REPAIRER AIR Please mychart message: Pt response to questions. CASTRO Baez E REPAIRER AIR * Telephone Encounter - Grisel Catalan RN - 02/20/2024 11:46 AM BRAKE REPAIRER AIR Please address the chart message. Last OV 02/08/24. Clif Catalan RN E REPAIRER AIR documented in this encounter Plan of Treatment Not on file documented as of this encounter Visit Diagnoses Not on filedocumented in this encounter Additional Health Concerns Infection Onset Date Last Indicated Resolved Time Rule Out COVID-19 04/24/2024 04/24/2024 04/24/2024 6:06 AM BRAKE REPAIRER AIR Assessment Noted Time PHQ-9 Depression Total Score: 21 023 10:16 AM CDT documented as of this encounter Care Teams Premises Technician Relationship Specialty Start Date End Date [facility], [address] [address] PCP - General 11/28/23 Madelaine Mitchell DO design leader 07/26/16 Francesco Merritt MD [address] [place] [address] Family Medicine - Sports Medicine 12/14/18 Gabe Carl MD [address] [facility] [place] [address] Assigned PCP 05/09/21 Madelaine Mitchell DO [address] [facility] [address] [place] [address] Assigned OBGYN Provider 03/09/24 documented as of this encounter
[2024-05-23] MEDS: LORazepam 1 MG TABLET 2 MG PO (11:11)
== END 2024-05-23 12:10 | disposition home or self-care (01) ==
PROVIDERS: Emergency Provider Emergency Medicine Emergency Medical Services; PCP Family Medicine
DX: F10.129 Alcohol abuse with intoxication, unspecified (principal); F41.9 Anxiety disorder, unspecified
CPT/HCPCS: 99283; 99284; A9270

== ENCOUNTER 2024-07-22 15:09 | Outpatient (CLI) | payer BC, SELFPAY ==
--- NOTE | 2024-07-22 15:30 | CRLHL7_ITS ---
For Patients: As a result of the Century Cures Act, medical imaging exams and procedure reports are released immediately into your electronic medical record. You may view this report before your referring provider. If you have questions, please contact your health care provider. INDICATION: Pituitary tumor, follow-up. TECHNIQUE: Multisequence multiplanar MRI of the brain prior to and following administration of 15 cc Dotarem gadolinium-based intravenous contrast. Pituitary protocol was utilized including dynamic postcontrast imaging. COMPARISON: MRI brain dated 08/01/2023. FINDINGS: No evidence of acute ischemia. Normal signal intensity of the brain parenchyma. No focus of abnormal brain parenchymal or leptomeningeal enhancement. The ventricles are normal and unchanged in size. Flow voids of the larger intracranial arteries are preserved. Dedicated imaging of the pituitary demonstrates an unchanged 6 x 6 x 6 mm focus of hypoenhancement within the right lateral sella (series 16, image 10 and series 10, image 11). The optic chiasm is within normal limits. There is no evidence of cavernous sinus invasion. Mild leftward deviation of the pituitary infundibulum is unchanged. Normal calvarial bone marrow signal intensity. Symmetric globes. Mild scattered paranasal sinus mucosal thickening. IMPRESSION: 1. Unchanged 6 mm focus of hypoenhancement within the right lateral sella turcica suspicious for pituitary microadenoma. 2. Similar mild leftward deviation of the pituitary infundibulum. Dictated by Pavan Hannah MD @ 07/23/2024 2:40:28 PM (Electronically Signed)
== END 2024-07-22 15:10 | disposition home or self-care (01) ==
LOC: MRI 15:09
PROVIDERS: PCP Family Medicine; Visit Provider Internal Medicine Endocrinology, Diabetes & Metabolism
DX: D49.7 Neoplasm of unspecified behavior of endocrine glands and other parts of nervous system (principal); J34.2 Deviated nasal septum
CPT/HCPCS: 70553; A9575

== ENCOUNTER 2024-10-08 15:10 | Outpatient (CLI) | payer BC, SELFPAY | END 2024-10-08 15:11 | disposition home or self-care (01) | PROVIDERS: PCP Family Medicine; Visit Provider Family Medicine | DX: D35.2 Benign neoplasm of pituitary gland (principal); R53.83 Other fatigue | CPT/HCPCS: 80053; 84145; 84439; 84443; 84480; 86038; 86140; 86618; 86663; 86664; 86665 ==

== ENCOUNTER 2025-01-03 19:02 | Emergency (ER) | payer BC, SELFPAY ==
--- OUTSIDE RECORDS SUMMARY | 2023-02-14 23:30 | XMS_ITS | Continuity of Care Document ---
Author Organization [facility] Address [address] [address] [place] [address] Phone Care Team Providers Care Urban Redevelopment Specialist Name Role Phone No Information Unavailable Unavailable Allergies, Adverse Reactions, Alerts Substance Reaction Status Criticality Sulfa (Sulfonamide Antibiotics) Active No Information Medications Medication Instructions Dosage Effective Dates (start - stop) Status Comments hyoscyamine sulfate 0.125 mg tablet take 1 tablet by oral route every 6 hours as needed 0.125 MG - Active ondansetron 4 mg disintegrating tablet take 1 tablet by oral route every [address] on top of the tongue where they will dissolve, then swallow. aS NEEDED FOR NAUSEA AND VOMITING - Active hydrocodone 5 mg-acetaminophen 325 mg tablet take 1 tablet by oral route every day as needed 1 tablet - Active ketorolac 10 mg tablet take 1 tablet by oral route every 6 hours as needed for up to 5 days total use 10 MG - Active metformin 500 mg tablet take 1 tablet by oral route 4 times every day with morning and evening meals 500 MG - Active Procedures Procedure Date Routine Serum Collection New Level 5 Advance Directives Directive Yes / No Effective Date File Name No Information Encounters Encounter Description Practice Location Reason(s) For Visit Diagnoses Date Provider Providers Copied on Encounter [facility], [address] [address], [place], [id number], tel:[phone] No Information Nov-0 1-202 3 No Information [facility], [address] [address], [place], [id number], tel:[phone] [facility] Other fecal abnormalities 3 Ani [address]ff. [address] [place] [address], [id number], [place]. tel:[phone] Referring Provider: Referral Self, USE FOR SELF REFERRALS. [facility] Level 5 [facility], [address] [address], [place], [id number], tel:[phone] [facility] GI Symptoms or Concerns (chief complaint) Loose stoolsAbdominal pain, unspecified abdominal locationNausea and vomiting, unspecified vomiting type 3 Ani [address]ff[address] [place] [address], [id number], [place]. tel:[phone] Referring Provider: Referral Self, USE FOR SELF REFERRALS. [facility], [address] [address], [place], [id number], tel:[phone] [facility] GI Symptoms or Concerns (chief complaint) No Information 3 Ani [address]ff[address] [place] [address], [id number], [place]. tel:[phone] Family History Family Member Type Diagnosis Age At Onset Father Problem Hypertension Mother Problem Alive and well Father Problem Alcoholism Father Problem depression Father Problem Alive and well Mother Problem vertigo Payers Payer name Insurance type Covered libertarian ID Authoriza tion(s) No Information Social History Type Description Quantity Date Captured Comments Sex Female Smoking Status No Information Chief Complaint And Reason For Visit No Information Reason For Referral Reason For Referral No Information Plan Of Treatment Date Type Action Status Referral Ordered: Stool Test Panel, Comprehensive Appointment date/timeframe: 02/02/2023 ordered History Of Present Illness Encounter Date Complaint History Of Prese nt Illness GI Symptoms or Concerns Neda Moss is a pleasant 32-year-old female, who is seen for ER followup. The patient reports she was in her usual state of health until approximately 3 weeks ago when her young son jumped on her abdomen. He weighs approximately 40 pounds. Subsequently noted onset of abdominal pain.However, throughout the week, abdominal pain became increasingly severe, was associated with nausea, vomiting, and loose stool. Her daughter may have had a similar constellation of symptoms, though her course was brief. She went to the Emergency Department at which point a CT scan of the abdomen and pelvis was unrevealing regarding a cause. Laboratory investigation was reportedly normal. She was discharged home with plan for outpatient followup. Pain seemed to resolve. She was again seen in the Emergency Department due to recurrent symptoms yesterday, 10/10 in severity. Again, with associated nausea, vomiting, and loose stool. Ultrasound of the abdomen did not reveal sludge or stones. Her common bile duct was 4 mm. Labs wnl. She was discharged with Toradol and hydrocodone for management of symptoms. These are not particularly helpful.During today's visit, she notes ongoing symptoms of abdominal pain. This can be so severe it wakes her from sleep. Pain has been constant since yesterday morning. Pain is 8/10 in severity, poorly localized throughout her entire abdomen, difficult for her to describe but can be crampy. No clear aggravating or alleviating factors. She notes loose stool with 2-3 bowel movements per day associated with urgency. There is no incontinence, nocturnal stools, black or bloody stool. She notes nausea with retching.Rare heartburn and regurgitation. No dysphagia, odynophagia, hoarse voice, or chronic cough. She notes infrequent NSAID use.No fevers, chills, unintentional weight loss. At baseline, she has 1 formed stool per day.PAST MEDICAL HISTORYPCOS.PAST SURGICAL HISTORYC-section x1.ALLERGIESReviewed.MEDICATIONSMetformin, , Toradol, hydrocodone.SOCIAL HISTORYOccasional alcohol. No smoking or illicit drugs. 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 She has 3 children. Her youngest is 9 months and she is actively breast-feeding.FAMILY HISTORYNo family history of IBD, celiac or GI malignancy.PRIOR WORKUPS REVIEWED- Laboratories on 01/06/2023, CBCs, CMP, CRP within acceptable limits.- CTAP on 01/06/2023 done with contrast, notable for no acute pathology, 2 cm solid lung nodule in the right middle lobe. Recommended for dedicated CT of the chest.- CT chest without contrast notable for 1.6 mm right middle lobe nodule. She has been recommended for repeat exam in 3-6 months.- Laboratories on 01/17/2022, notable for CBC, CMP, lipase within acceptable limits.- Ultrasound on 01/17/2023, notable for no sludge or stone, common bile duct 4 mm.- She reports that an upper endoscopy and colonoscopy were done 15 years ago in the context of rectal bleeding and were negative. GI Symptoms or Concerns Functional Status Date Functional Assessmen t No Information Instructions Date Instruction Additional Infor mation No Information Assessments Type Assessment Date No Information Patient Care Teams Name Effective Dates (start - stop) Status Members No Information
--- OUTSIDE RECORDS SUMMARY | 2023-02-14 23:30 | XMS_ITS | Continuity of Care Document ---
Author Organization [facility] Address [address] [address] [place] [address] Phone Care Team Providers Care Financial Legal Assistant Name Role Phone No Information Unavailable Unavailable [...] Encounter [facility], [address] [address], [place], [id number], tel:[phone] No Information Nov-0 1-202 3 No Information [facility], [address] [address], [place], [id number], tel:[phone] [facility] Other fecal abnormalities 3 Ani Graff. [address] [place] [address], [id number], [place]. tel:[phone] Referring Provider: Referral Self, USE FOR SELF REFERRALS. [facility] Level 5 [facility], [address] [address], [place], [id number], tel:[phone] [facility] GI Symptoms or Concerns (chief complaint) Loose stoolsAbdominal pain, unspecified abdominal locationNausea and vomiting, unspecified vomiting type 3 Ani [address]ff[address] [place] [address], [id number], [place]. tel:[phone] Referring Provider: Referral Self, USE FOR SELF REFERRALS. [facility], [address] [address], [place], [id number], tel:[phone] [facility] GI Symptoms or Concerns (chief complaint) No Information 3 Ani [address]ff[address] [place] [address], [id number], [place]. tel:[phone] Family History Family Member Type Diagnosis Age At Onset Father Problem Hypertension Mother Problem Alive and well Father Problem Alcoholism Father Problem depression Father Problem Alive and well Mother Problem vertigo Payers Payer name Insurance type Covered democrat ID Authoriza tion(s) No Information Social History [...] illicit drugs. 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 She has 3 children. Her youngest is [...]
--- OUTSIDE RECORDS SUMMARY | 2025-01-03 19:04 | XMS_ITS | Encounter Summary ---
Author Organization [facility] Address [address] [place] [address] Care Team Providers Care Club Room Attendant Name Role Phone Madelaine Mitchell DO Unavailable [phone] Rosamaria Jones MD Primary Care Provider UnavailFrancesco Andrea MD Unavailable [phone] Loyda Farmer MD Unavailable UnaksElaina Fish APRN DIRECTOR PROJECT MANAGEMENT Unavailable [phone] Rosamaria Jones MD Unavailable Unavailable Gabe Carl MD Unavailable [phone] Danielle Alcantar MD Unavailable [phone] [facility] Primary Care Provider Madelaine Mitchell DO Unavailable [phone] Encounter Details Date Type Department Care Team (Late st Contact Info) Description 10/22/[address] [facility] Women's [facility] [address] [facility] [address] [place] [address] Queta Lisa, RN Social History [...] Out COVID-19 03/31/2021 03/31/2021 03/31/2021 7:10 AM SOFTWARE COMPUTER SPECIALIST Rule Out COVID-19 09/15/2022 09/15/2022 09/15/2022 9:15 AM CDT Rule Out COVID-19 04/24/2024 04/24/2024 04/24/2024 6:06 AM SOFTWARE COMPUTER SPECIALIST Assessment Noted Time PHQ-9 Depression Total Score: 10 019 7:03 AM CDT documented as of this encounter Care Teams Club Room Attendant Relationship Specialty Start Date End Date Rosamaria Jones MD PCP - General Internal Medicine 10/06/18 11/27/[address] [address] PCP - General 11/28/23 Madelaine Mitchell DO sole stainer 07/26/16 Francesco Merritt MD [facility] [address] [address] Family Medicine - Sports Medicine 12/14/18 Loyda Farmer MD Assigned PCP 09/29/19 10/26/19 Elaina Jiang APRN DIRECTOR PROJECT MANAGEMENT [facility] [address] [place], [place] [address] Assigned PCP 10/27/19 04/03/21 Rosamaria Jones MD INACTIVE IN [place] 03/16/2024 Assigned PCP 04/04/21 05/08/21 Gabe Carl MD [address] [place] [address] Assigned PCP 05/09/21 06/08/24 Danielle Alcantar MD [address] [place] [address] Assigned Musculoskeletal Provider 07/18/21 02/03/23 Madelaine Mitchell DO [address] [address] Assigned OBGYN Provider 03/09/24 documented as of this encounter
--- OUTSIDE RECORDS SUMMARY | 2025-01-03 19:04 | XMS_ITS | Encounter Summary ---
Author Organization [facility] Address [address] [place] [address] Care Team Providers Care Marker Hand Name Role Phone Madelaine Mitchell DO Unavailable Rosamaria Jones MD Primary Care Provider UnavailFrancesco Andrea MD Unavailable Elaina Jiang APRN [facility] Unavailable [phone] Rosamaria Jones MD Unavailable Unavailable Gabe Carl MD Unavailable [phone] Danielle Alcantar MD Unavailable [facility] Primary Care Provider Madelaine Mitchell DO Unavailable [phone] Encounter Details Date Type Department Care Team (Late st Contact Info) Description 07/10/2020 MyC Medical Advice [facility] Women's [facility] [address] [place] [phone] Madelaine Mitchell DO [address] [place] [address] Social History Tobacco Use Types [...] Out COVID-19 03/31/2021 03/31/2021 03/31/2021 7:10 AM COMPUTER NETWORK SPECIALIST Rule Out COVID-19 09/15/2022 09/15/2022 09/15/2022 9:15 AM CDT Rule Out COVID-19 04/24/2024 04/24/2024 04/24/2024 6:06 AM COMPUTER NETWORK SPECIALIST Assessment Noted Time PHQ-9 Depression Total Score: 10 019 7:03 AM CDT documented as of this encounter Care Teams Marker Hand Relationship Specialty Start Date End Date Rosamaria Jones MD PCP - General Internal Medicine 10/06/18 11/27/[address] [address] PCP - General 11/28/23 Madelaine Mitchell DO pear picker 07/26/16 Francesco Merritt MD [address] [place] [address] Family Medicine - Sports Medicine 12/14/18 Elaina Jiang APRN CNP [facility] [address] [place], [place] [address] Assigned PCP 10/27/19 04/03/21 Rosamaria Jones MD INACTIVE IN [place] 03/16/2024 Assigned PCP 04/04/21 05/08/21 Gabe Carl MD [address] [place] [address] Assigned PCP 05/09/21 06/08/24 Danielle Alcantar MD [address] [place] [id number] Assigned Musculoskeletal Provider 07/18/21 02/03/23 Madelaine Mitchell DO [address] [address] Assigned OBGYN Provider 03/09/24 documented as of this encounter
--- OUTSIDE RECORDS SUMMARY | 2025-01-03 19:04 | XMS_ITS | Encounter Summary ---
Author Organization [facility] Address [address] [place] [address]. [place] [address] Care Team Providers Care Commercial Art Instructor Name Role Phone Madelaine Mitchell DO Unavailable [phone] Francesco Merritt MD Unavailable Gabe Carl MD Unavailable [phone] [place] [address] [facility] Primary Care Provider Madelaine Mitchell DO Unavailable Encounter Details Date Type Department Care Team (Late st Contact Info) Description 01/30/[address] [facility] Women's [facility] [address] [place] [phone] Madelaine Mitchell DO [address] [place] [address] Social History Tobacco Use Types Packs/Day Years [...] to schedule next week. Marcella Arce RN [facility] * Telephone Encounter - Madelaine Mitchell DO - 01/31/2024 4:53 PM CDT Ok to add sooner, ok to double book. Usually works well to double book at physical slot .Dr. Madelaine Mitchell DO Obstetrics and Gynecology [facility] * Telephone Encounter - Grisel Catalan RN - 01/31/2024 8:30 AM CDT Please address the my chart message. Re: appedith Catalan RN documented in this encounter Plan of Treatment Not on file documented as of this encounter Visit Diagnoses Not on filedocumented in this encounter Additional Health Concerns Infection Onset Date Last Indicated Resolved Time Rule Out COVID-19 04/24/2024 04/24/2024 04/24/2024 6:06 AM CREASING MACHINE OPERATOR Assessment Noted Time PHQ-9 Depression Total Score: 21 023 10:16 AM CDT documented as of this encounter Care Teams Commercial Art Instructor Relationship Specialty Start Date End Date [facility], [address] [address] PCP - General 11/28/23 Madelaine Mitchell DO motor vehicles supervisor 07/26/16 Francesco Merritt MD [address] [place] [address] Family Medicine - Sports Medicine 12/14/18 Gabe Carl MD [address] [facility] VINICIUS MANNING [address] Assigned PCP 05/09/21 06/08/24 Madelaine Mitchell DO [address] [place], [place] [address] Assigned OBGYN Provider 03/09/24 documented as of this encounter
--- OUTSIDE RECORDS SUMMARY | 2025-01-03 19:04 | XMS_ITS | Encounter Summary ---
Author Organization [facility] Address [address] [place] [address] Care Team Providers Care Programmer Developer Name Role Phone Madelaine Mitchell DO Unavailable Rosamaria Jones MD Primary Care Provider UnavailFrancesco Andrea MD [facility]available [facility] Un[facility] FranciscalaElaina Fish APRN ELECTRIC MOTOR FITTER Unavailable [phone] Rosamaria Jones MD Unavailable Unavailable Gabe Carl MD Unavailable [phone] Danielle Alcantar MD Unavailable [phone] [facility] Primary Care Provider Madelaine Mitchell DO Unavailable [phone] Reason for Visit * Reason Comments Medication Refill Encounter Details Date Type Department Care Team (Late st Contact Info) Description 10/13/2019 Refill M [address] [address] Madelaine Mitchell DO [address] [facility] [address] [place] [address] Medication Refill Social History Tobacco Use Types [...] Out COVID-19 03/31/2021 03/31/2021 03/31/2021 7:10 AM PLATFORM POWER TECHNICIAN Rule Out COVID-19 09/15/2022 09/15/2022 09/15/2022 9:15 AM CDT Rule Out COVID-19 04/24/2024 04/24/2024 04/24/2024 6:06 AM PLATFORM POWER TECHNICIAN Assessment Noted Time PHQ-9 Depression Total Score: 10 019 7:03 AM CDT documented as of this encounter Care Teams Programmer Developer Relationship Specialty Start Date End Date Rosamaria Jones MD PCP - General Internal Medicine 10/06/18 11/27/[address] [address] PCP - General 11/28/23 Madelaine Mitchell DO solder leveler printed circuit boards 07/26/16 Francesco Merritt MD [facility] [place], [place] [address] [place] [address] Family Medicine - Sports Medicine 12/14/18 Loyda Farmer, MD Assigned PCP 09/29/19 10/26/19 Elaina Jiang APRN ELECTRIC MOTOR FITTER [address] [place] [address] Assigned PCP 10/27/19 04/03/21 Rosamaria Jones MD INACTIVE IN [place] 03/16/2024 Assigned PCP 04/04/21 05/08/21 Gabe Carl MD [address] [facility] [place] [address] Assigned PCP 05/09/21 06/08/24 Danielle Alcantar MD [address] [place] [address] Assigned Musculoskeletal Provider 07/18/21 02/03/23 Madelaine Mitchell DO [address] [place] [address] [address] Assigned OBGYN Provider 03/09/24 documented as of this encounter
--- OUTSIDE RECORDS SUMMARY | 2025-01-03 19:04 | XMS_ITS | Clinical Summary ---
Author Organization [facility] Address [address] [place] [address] Care Team Providers Care Applied Statistician Name Role Phone Rosamaria Jones MD Primary Care Provider Unavailabl e Source Comments You are receiving this document as you are listed as the primary care provider,follow-up provider, or the patient has been referred to you for consultation.This is in compliance with the Medicare andFirelands Regional Medical Centercaid EHR Incentive Program,which states Providers who transition their patient to another setting of careor provider of care or refers their patient to another provider of care shouldprovide summary care record for each transition of care or referral. [employer] Allergies Active Allergy Reactions Criticality Noted Date Comments Sulfa Antibiotics 11/23/2015 Medications metFORMIN (GLUCOPHAGE XR) 500 MG 24 hour release tablet Indications : PN: 10/18/2015 Active vitamin-ferrous fumarate-folic acid (PRENATALPLUS) 27-1 MG tablet [...] at Not on file Legal Sex Female 8:46 AM CDT Gender Identity Not on file Sexual Orientation Not on file Last Filed Vital Signs Vital Sign Reading Time Taken Comments Blood Pressure 123/75 06/15/2016 11:56 AM CLINICAL HAEMATOLOGIST Pulse 104 06/15/2016 11:56 AM CLINICAL HAEMATOLOGIST Temperature 36.7 C (98.1 F) 06/15/2016 11:56 AM CLINICAL HAEMATOLOGIST Respiratory Rate 20 06/15/2016 11:56 AM CLINICAL HAEMATOLOGIST Oxygen Saturation 98% 06/15/2016 11:56 AM CLINICAL HAEMATOLOGIST Inhaled Oxygen Concentration - - Weight 86.2 kg (190 lb) 11/23/2015 9:35 AM CDT Height 165.1 cm (5' 5) 11/23/2015 9:35 AM CDT Body Mass Index 31.62 11/23/2015 9:35 AM CDT Plan of Treatment Health Maintenance Due Date Last Done Comments Cervical Cancer Screening Due 1989 Hep C Screening (Preventive Services) 1989 HIV Screening (Preventive Services) 2005 Adult Preventive Visit 07/28/2007 DTaP/Tdap/Td Vaccine (1 - Tdap) 2008 HepB Vaccine (1) 2008 HPV Vaccine (1 - 3-dose SCDM series) 2016 COVID-19 Vaccine (1 - 2023-2 5 season) 2024 Influenza Vaccine (#1) 2024 Zoster/Shingles Vaccine (1 of 2) 07/28/2039 HepA Vaccine Aged Out No longer eligi ble based on patient's age to complete this topic Hib Vaccine Aged Out No longer eligi ble based on patient's age to complete this topic IPV (Polio) Vaccine Aged Out No longe r eligible based on patient's age to complete this topic MCV4 Vaccine Aged Out No longer eligi ble based on patient's age to complete this topic Meningococcal B Vaccine Aged Out No l onger eligible based on patient's age to complete this topic Pneumococcal Vaccine Aged Out No long er eligible based on patient's age to complete this topic Insurance [place] [id number] Care Teams Applied Statistician Relationship Specialty Start Date End Date Rosamaria Jones MD PCP - General 11/10/15
--- OUTSIDE RECORDS SUMMARY | 2025-01-03 19:05 | XMS_ITS | Encounter Summary ---
Author Organization [facility] Address [address] [place] [address]. [place] [address] Care Team Providers Care Inspector Assembly Name Role Phone Madelaine Mitchell DO Unavailable [phone] Francesco Merritt MD Unavailable [phone] Gabe Carl MD Unavailable [phone] [place] [address] Primary Care Provider Madelaine Mitchell DO Unavailable Reason for Visit * Reason Onset Date Comments Medication Request 03/12/2024 Encounter Details Date Type Department Care Team (Late st Contact Info) Description 03/12/2024 MyC Medical Advice [facility] Women's [address] [place] [address] Madelaine Mitchell DO [address] [facility] [address] [place] [address] Medication Request Social History Tobacco Use Types [...] a follow up with her? Queta Morales CHEMICAL PROCESSING SUPERVISOR [place] lap machine tender TRACK BETTING MANAGER documented in this encounter Plan of Treatment Not on file documented as of this encounter Visit Diagnoses Diagnosis Anovulation- Primary Female infertility associated with anovulation documented in this encounter Additional Health Concerns Infection Onset Date Last Indicated Resolved Time Rule Out COVID-19 04/24/2024 04/24/2024 04/24/2024 6:06 AM OFF TRACK BETTING MANAGER Assessment Noted Time PHQ-9 Depression Total Score: 21 023 10:16 AM CDT documented as of this encounter Care Teams Inspector Assembly Relationship Specialty Start Date End Date [address] [address] PCP - General 11/28/23 Madelaine Mitchell DO foundry supervisor 07/26/16 Francesco Merritt MD [facility] [address] [facility] [address] [place] [address] Family Medicine - Sports Medicine 12/14/18 Gabe Carl MD [address] [facility] VINICIUS MANNING [address] Assigned PCP 05/09/21 06/08/24 Madelaine Mitchell DO [address] [address] Assigned OBGYN Provider 03/09/24 documented as of this encounter
--- OUTSIDE RECORDS SUMMARY | 2025-01-03 19:05 | XMS_ITS | Encounter Summary ---
Author Organization [facility] Address [address] [place] [address]. [place] [address] Care Team Providers Care Network Security Officer Name Role Phone Madelaine Mitchell DO Unavailable [phone] Rosamaria Jones MD Primary Care Provider [facility] Francesco Merritt MD Unavailable [phone] Gabe Carl MD Unavailable [phone] Danielle Alcantar MD Unavailable [phone] [facility] Primary Care Provider Madelaine Mitchell DO Unavailable [phone] Encounter Details Date Type Department Care Team (Late st Contact Info) Description 01/08/2023 MyC Medical Advice [facility] [address] [address] Francesco Merritt MD [facility] [address] [place] [address] Social History Tobacco Use Types [...] Out COVID-19 04/24/2024 04/24/2024 04/24/2024 6:06 AM TEA ROOM MANAGER Assessment Noted Time PHQ-9 Depression Total Score: 21 023 10:16 AM CDT documented as of this encounter Care Teams Network Security Officer Relationship Specialty Start Date End Date Rosamaria Jones MD PCP - General Internal Medicine 10/06/18 11/27/[address] [address] PCP - General 11/28/23 Madelaine Mitchell DO roll forming machine set up mechanic 07/26/16 Francesco Merritt MD [address] [place] [address] Family Medicine - Sports Medicine 12/14/18 Gabe Carl MD [address] [place] [address] VINICIUS MANNING [address] Assigned PCP 05/09/21 06/08/24 Danielle Alcantar MD [address] [place] [address] Assigned Musculoskeletal Provider 07/18/21 02/03/23 Madelaine Mitchell DO [address] [address] Assigned OBGYN Provider 03/09/24 documented as of this encounter
--- OUTSIDE RECORDS SUMMARY | 2025-01-03 19:05 | XMS_ITS | Encounter Summary ---
Author Organization [facility] Address [address] [place] [address] Care Team Providers Care Professor Of Music Name Role Phone Rosamaria Jones MD Primary Care Provider UnavailMadelaine Mac DO Unavailable Elaina Jiang APRN PAINT MIXER HAND Unavailable [phone] No Ref-Primary, Physician Primary Care Provider Rosamaria Jones MD Primary Care Provider UnavailFrancesco Andrea MD Unavailable [phone] Rosamaria Jones MD Unavailable Unavailable Serum, Loyda Escobedo MD Unavailable Unavai Elaina Briones APRN PAINT MIXER HAND Unavailable [phone] Rosamaria Jones MD Unavailable Unavailable Gabe Carl MD Unavailable [phone] Danielle Alcantar MD Unavailable [phone] [facility] Primary Care Provider Madelaine Mitchell DO Unavailable [phone] Encounter Details Date Type Department Care Team (Late st Contact Info) Description 07/15/2018 [facility] [address] [place] [address] Madelaine Mitchell DO [address] [facility] [address] [place] [address] PCOS (polycystic ovarian syndrome) (Primary Dx) Social [...] Out COVID-19 03/31/2021 03/31/2021 03/31/2021 7:10 AM AIRFRAME DESIGN ENGINEER Rule Out COVID-19 09/15/2022 09/15/2022 09/15/2022 9:15 AM CDT Rule Out COVID-19 04/24/2024 04/24/2024 04/24/2024 6:06 AM AIRFRAME DESIGN ENGINEER Assessment Noted Time PHQ-9 Depression Total Score: 0 02/01/20 17 1:00 PM CDT documented as of this encounter Care Teams Professor Of Music Relationship Specialty Start Date End Date Rosamaria Jones MD PCP - General Internal Medicine 09/12/14 07/24/18 No Ref-Primary, Physician PCP - General 07/25/18 10/05/18 Rosamaria Jones MD PCP - General Internal Medicine 10/06/18 11/27/23 [place] [address] PCP - General 11/28/23 Madelaine Mitchell DO pharmaceutical officer 07/26/16 Elaina Jiang APRN PAINT MIXER HAND [address] [place] [address] Assigned PCP 04/08/18 03/30/19 Francesco Merritt MD [facility] [address] [address] Family Medicine - Sports Medicine 12/14/18 Rosamaria Jones MD INACTIVE IN [place] 03/16/2024 Assigned PCP 03/31/19 09/28/19 Loyda Farmer MD Assigned PCP 09/29/19 10/26/19 Elaina Jiang APRN PAINT MIXER HAND [address] [place] [address] Assigned PCP 10/27/19 04/03/21 Rosamaria Jones MD INACTIVE IN [place] 03/16/2024 Assigned PCP 04/04/21 05/08/21 Gabe Carl MD [address] [place] [address] [place] [address] Assigned PCP 05/09/21 06/08/24 Danielle Aclantar MD [address] [place], [place] [address] Assigned Musculoskeletal Provider 07/18/21 02/03/23 Madelaine Mitchell DO [address] [facility] [address] [place] [address] Assigned OBGYN Provider 03/09/24 documented as of this encounter
--- OUTSIDE RECORDS SUMMARY | 2025-01-03 19:05 | XMS_ITS | Encounter Summary ---
Author Organization [facility] Address [address] [place] [address] Care Team Providers Care Psychiatric Aides Teacher Name Role Phone Rosamaria Jones MD Primary Care Provider UnavailMadelaine Mac DO Unavailable [phone] Jonas Cullen MD Unavailable Elaina Jiang APRN PLATE FITTER Unavailable Elaina Jiang APRN PLATE FITTER Unavailable [phone] Ref-Primary, Physician Primary Care Provider oRsamaria Jones MD Primary Care Provider UnavailFrancesco Andrea MD Unavailable Rosamaria Jones MD Unavailable Unavailable Loyda Farmer MD Unavailable Elaina Mcdonnell APRN PLATE FITTER Unavailable [phone] Rosamaria Jones MD Unavailable Unavailable Gabe Carl MD Unavailable [phone] Danielle Alcantar MD Unavailable [phone] [facility] Primary Care Provider Madelaine Mitchell DO Unavailable [phone] Reason for Visit * Reason Onset Date Comments Results 10/07/2016 hgb Encounter Details Date Type Department Care Team (Late st Contact Info) Description 10/07/2016 MyC Medical Advice [facility] [address] [place] [address] Madelaine Mitchell DO [address] [place] [address] [place] [address] Results (hgb) Social History Tobacco Use Types [...] Out COVID-19 03/31/2021 03/31/2021 03/31/2021 7:10 AM MOLD POLISHER Rule Out COVID-19 09/15/2022 09/15/2022 09/15/2022 9:15 AM CDT Rule Out COVID-19 04/24/2024 04/24/2024 04/24/2024 6:06 AM MOLD POLISHER documented as of this encounter Care Teams Psychiatric Aides Teacher Relationship Specialty Start Date End Date Rosamaria Jones MD PCP - General Internal Medicine 09/12/14 07/24/18 [place] [address] [place] [address] PCP - Assigned PCP 02/04/18 04/07/18 Elaina Jiang APRN PLATE FITTER [address] [place] [address] PCP - Assigned PCP 04/08/18 06/19/18 No Ref-Primary, Physician PCP - General 07/25/18 10/05/18 Rosamaria Jones MD PCP - General Internal Medicine 10/06/18 11/27/[address] [id number] PCP - General 11/28/23 Madelaine Mitchell DO shirt trimmer 07/26/16 Elaina Jiang APRN PLATE FITTER [address] [place], [place] [address] Assigned PCP 04/08/18 03/30/19 Francesco Merritt MD [address] [place] [address] Family Medicine - Sports Medicine 12/14/18 Rosamaria Jones MD INACTIVE IN [place] 03/16/2024 Assigned PCP 03/31/19 09/28/19 Loyda Farmer MD Assigned PCP 09/29/19 10/26/19 Elaina Jiang APRN PLATE FITTER [address] [place] [address] Assigned PCP 10/27/19 04/03/21 Rosamaria Jones MD INACTIVE IN [place] 03/16/2024 Assigned PCP 04/04/21 05/08/21 Gabe Carl MD [address] [place] [address] VINICIUS MANNING [address] Assigned PCP 05/09/21 06/08/24 Danielle Alcantar MD [address] [place] [address] Assigned Musculoskeletal Provider 07/18/21 02/03/23 Madelaine Mitchell DO [address] [facility] [address] [place] [address] Assigned OBGYN Provider 03/09/24 documented as of this encounter
--- OUTSIDE RECORDS SUMMARY | 2025-01-03 19:05 | XMS_ITS | Encounter Summary ---
Author Organization [facility] Address [address] [place] [address] Care Team Providers Care Business Objects Consultant Name Role Phone Madelaine Mitchell DO Unavailable [phone] Rosamaria Jones MD Primary Care Provider UnavailFrancesco Andrea MD Unavailable [phone] Gabe Carl MD Unavailable [phone] Danielle Alcantar MD Unavailable [phone] [facility] Primary Care Provider Madelaine Mitchell DO Unavailable [phone] Reason for Referral * Infertility Artificial Insemination (Routine: Next available opening) - Closed Specialty Diagnoses / Procedures Referred By Contjoaquin t Referred To Contact Diagnoses [place] [address] [place] [address] Phone: tel: fax: [facility] [address] [place] [address] Phone: tel: Referral ID Status Reason Start Date Expiration Date Visits Re quested Visits Authorized [id number] Closed 06/07/2021 06/07/2022 1 1 Question Answer [...] or coverage questions. [facility]: [phone] [facility] [phone] [facility]. ([facility]) [phone] Other (external) - Use Comments Please call to schedule your appointment AL SCIENCE ANALYST Encounter Details Date Type Department Care Team (Late st Contact Info) Description 06/03/2021 MyC Medical Advice [facility] [address] [place] [address] Madelaine Mitchell DO [address] [place] [address] Anovulation (Primary Dx) Social History [...] Out COVID-19 04/24/2024 04/24/2024 04/24/2024 6:06 AM SOCIAL SCIENCE ANALYST Assessment Noted Time PHQ-9 Depression Total Score: 10 022 9:03 AM SOCIAL SCIENCE ANALYST documented as of this encounter Care Teams Business Objects Consultant Relationship Specialty Start Date End Date Rosamaria Jones MD PCP - General Internal Medicine 10/06/18 11/27/[address] [address] PCP - General 11/28/23 Madelaine Mitchell DO nuclear technologist 07/26/16 Francesco Merritt MD [address] [place] [address] Family Medicine - Sports Medicine 12/14/18 Gabe Carl MD [address] [place] [address] [place] [address] Assigned PCP 05/09/21 06/08/24 Danielle Alcantar MD [address] [place] [address] Assigned Musculoskeletal Provider 07/18/21 02/03/23 Madelaine Mitchell DO [address] [address] Assigned OBGYN Provider 03/09/24 documented as of this encounter
--- OUTSIDE RECORDS SUMMARY | 2025-01-03 19:05 | XMS_ITS | Encounter Summary ---
Author Organization [place] Address [address] [place] [address] Care Team Providers Care Accessories Repairer Name Role Phone Madelaine Mitchell DO Unavailable Rosamaria Jones MD Primary Care Provider UnavailFrancesco Andrea MD Unavailable Rosamaria Jones MD Unavailable Unavailable Serum, Loyda Escobedo MD Unavailable Unavai Elaina Briones APRN HAND THERMAL CUTTER Unavailable [phone] Rosamaria Jones MD Unavailable Unavailable Gabe Carl MD Unavailable [phone] Danielle Alcantar MD Unavailable [facility], [facility] Primary Care Provider Madelaine Mitchell DO Unavailable [phone] Encounter Details Date Type Department Care Team (Late st Contact Info) Description 06/28/2019 Orders Only [facility] [place] [address] [facility], [address] [place] [address] Porsha Vargas, CASTRO Social History Tobacco Use Types Packs/Day Years [...] COLP CERVIX/UPPER VAGINA Routine 04/25/2019 12:00 AM TURNER IN documented in this encounter Results * COLP CERVIX/UPPER VAGINA (04/25/2019 12:00 AM TURNER IN) us Patient Reported PROCEDURES Final Result documented in this encounter Visit Diagnoses Not on filedocumented in this encounter Additional Health Concerns Infection Onset Date Last Indicated Resolved Time Rule Out COVID-19 03/31/2021 03/31/2021 03/31/2021 7:10 AM TURNER IN Rule Out COVID-19 09/15/2022 09/15/2022 09/15/2022 9:15 AM CDT Rule Out COVID-19 04/24/2024 04/24/2024 04/24/2024 6:06 AM TURNER IN Assessment Noted Time PHQ-9 Depression Total Score: 10 019 7:03 AM CDT documented as of this encounter Care Teams Accessories Repairer Relationship Specialty Start Date End Date Rosamaria Jones MD PCP - General Internal Medicine 10/06/18 11/27/[address] [address] PCP - General 11/28/23 Madelaine Mitchell DO newspaper manager 07/26/16 Francesco Merritt MD [address] [place] [address] Family Medicine - Sports Medicine 12/14/18 Rosamaria Jones MD INACTIVE IN [place] 03/16/2024 Assigned PCP 03/31/19 09/28/19 Loyda Farmer MD Assigned PCP 09/29/19 10/26/19 Elaina Jiang APRN HAND THERMAL CUTTER [address] [place] [address] Assigned PCP 10/27/19 04/03/21 Rosamaria Jones MD INACTIVE IN [place] 03/16/2024 Assigned PCP 04/04/21 05/08/21 Gabe Carl MD [address] [address] Assigned PCP 05/09/21 06/08/24 Danielle Alcantar MD [address] [place] [address] Assigned Musculoskeletal Provider 07/18/21 02/03/23 Madelaine Mitchell DO [address] [place] [address] Assigned OBGYN Provider 03/09/24 documented as of this encounter
--- OUTSIDE RECORDS SUMMARY | 2025-01-03 19:05 | XMS_ITS | Encounter Summary ---
Author Organization [place] Address [address] [place] [address] Care Team Providers Care Irrigation Flume Layer Name Role Phone Madelaine Mitchell DO Unavailable [phone] Rosamaria Jones MD Primary Care Provider UnavailFrancesco Andrea MD Unavailable Rosamaria Jones MD Unavailable Unavailable Serum, Loyda Escobedo MD Unavailable Unavai Elaina Briones APRN WATER PURIFIER OPERATOR Unavailable [phone] Rosamaria Jones MD Unavailable Unavailable Gabe Carl MD Unavailable [phone] Danielle Alcantar MD Unavailable [phone] [facility], [facility] Primary Care Provider Madelaine Mitchell DO Unavailable [phone] Encounter Details Date Type Department Care Team (Late st Contact Info) Description 06/28/2019 Orders Only [facility] [place] [address] [facility], [address] [place] [address] Porsha Vargas, [...] COLP CERVIX/UPPER VAGINA Routine 04/25/2018 12:00 AM GARAGE LABORER documented in this encounter Results * COLP CERVIX/UPPER VAGINA (04/25/2018 12:00 AM GARAGE LABORER) us Patient Reported PROCEDURES Final Result documented in this encounter Visit Diagnoses Not on filedocumented in this encounter Additional Health Concerns Infection Onset Date Last Indicated Resolved Time Rule Out COVID-19 03/31/2021 03/31/2021 03/31/2021 7:10 AM GARAGE LABORER Rule Out COVID-19 09/15/2022 09/15/2022 09/15/2022 9:15 AM CDT Rule Out COVID-19 04/24/2024 04/24/2024 04/24/2024 6:06 AM GARAGE LABORER Assessment Noted Time PHQ-9 Depression Total Score: 10 019 7:03 AM CDT documented as of this encounter Care Teams Irrigation Flume Layer Relationship Specialty Start Date End Date oRsamaria Jones MD PCP - General Internal Medicine 10/06/18 11/27/[address] [address] PCP - General 11/28/23 Madelaine Mitchell DO rn clinical 07/26/16 Francesco Merritt MD [address] [place] [address] Family Medicine - Sports Medicine 12/14/18 Rosamaria Jones MD INACTIVE IN [place] 03/16/2024 Assigned PCP 03/31/19 09/28/19 Loyda Farmer MD Assigned PCP 09/29/19 10/26/19 Elaina Jiang APRN WATER PURIFIER OPERATOR [address] [place] [address] Assigned PCP 10/27/19 04/03/21 Rosamaria Jones MD INACTIVE IN [place] 03/16/2024 Assigned PCP 04/04/21 05/08/21 Gabe Carl MD [address] [facility] [place] [address] Assigned PCP 05/09/21 06/08/24 Danielle Alcantar MD [address] [place] [address] Assigned Musculoskeletal Provider 07/18/21 02/03/23 Madelaine Mitchell DO [address] [place] [address] Assigned OBGYN Provider 03/09/24 documented as of this encounter
--- OUTSIDE RECORDS SUMMARY | 2025-01-03 19:05 | XMS_ITS | Encounter Summary ---
Author Organization [place] Address [address] [place] [address]. [place] [address] Care Team Providers Care Moulder Operator Name Role Phone Madelaine Mitchell DO Unavailable Francesco Merritt MD Unavailable [phone] [facility] Primary Care Provider Madelaine Mitchell DO Unavailable Reason for Visit * Reason Onset Date Comments Update 12/24/2024 Encounter Details Date Type Department Care Team (Late st Contact Info) Description 12/24/2024 [facility] [place] [address] [address] [place] [address] [place] [address] Madelaine Mitchell DO [address] [facility] [address] [place], [place] [address] Update Social History Tobacco Use Types Packs/Day Years Used Date Smoking Tobacco: Former Smokeless Tobacco: Never Comments:2 to 3 a day Alcohol Use Standard Drinks/Week Comments Yes 0 (1 standard drink = 0.6 oz pur e alcohol) PHQ-2 Answer Date Recorded PHQ-2 Score 0 09/17/2024 Adolescent Education Answer Date Record ed Getting [...] Noted Time PHQ-9 Depression Total Score: 0 09/18/19 25 9:05 AM CDT documented as of this encounter Care Teams Moulder Operator Relationship Specialty Start Date End Date [facility], [address] [address] PCP - General 11/28/23 Madelaine Mitchell DO technology training associate 07/26/16 Francesco Merritt MD [address] [place] [address] Family Medicine - Sports Medicine 12/14/18 Madelaine Mitchell DO [address] [facility] [address] [place] [address] Assigned OBGYN Provider 03/09/24 documented as of this encounter
--- OUTSIDE RECORDS SUMMARY | 2025-01-03 19:05 | XMS_ITS | Encounter Summary ---
Author Organization [place] Address [address] [place] [address]. [place] [address] Care Team Providers Care Cake Press Operator Name Role Phone Madelaine Mitchell DO Unavailable Rosamaria Jones MD Primary Care Provider UnavailFrancesco Andrea MD Unavailable [phone] Gabe Carl MD Unavailable [phone] Danielle Alcantar MD Unavailable [phone] Primary Care Provider Madelaine Mitchell DO Unavailable [phone] Encounter Details Date Type Department Care Team (Late st Contact Info) Description 08/27/2021 [facility] [address] [place] [address] Danielle [place], PT [address] [address] Social History Tobacco Use Types Packs/Day Years [...] Out COVID-19 04/24/2024 04/24/2024 04/24/2024 6:06 AM GIS ANALYST DEVELOPER Assessment Noted Time PHQ-9 Depression Total Score: 10 022 9:03 AM GIS ANALYST DEVELOPER documented as of this encounter Care Teams Cake Press Operator Relationship Specialty Start Date End Date Rosamaria Jones MD PCP - General Internal Medicine 10/06/18 11/27/[address] [address] PCP - General 11/28/23 Madelaine Mitchell DO costume mistress 07/26/16 Francesco Merritt MD [address] [place] [address] Family Medicine - Sports Medicine 12/14/18 Gabe Carl MD [address] [place] [address] [place] [address] Assigned PCP 05/09/21 06/08/24 Danielle Alcantar MD [address] [place] [id number] Assigned Musculoskeletal Provider 07/18/21 02/03/23 Madelaine Mitchell DO [address] [address] Assigned OBGYN Provider 03/09/24 documented as of this encounter
--- OUTSIDE RECORDS SUMMARY | 2025-01-03 19:05 | XMS_ITS | Clinical Summary ---
Author Organization [facility] Address [address] [place] [address] Care Team Providers Care Nuclear Medicine Chief Technologist Name Role Phone Pedro Boudreaux MD Primary Care Provider [phone] Leana Syed RN, BSN Unavailable Unavailab Ceferino Silva MD Unavailable [phone] Allergies Active Allergy Reactions Criticality Noted Date [...] per actuation) nasal solution (FLONASE) Inhale 1 Baker to both nostrils once daily if needed [...] mg tabletIndications :Carcinoid tumor of right lung (HC) Take 1 Tablet (500 mg) by mouth four times daily. 28 Tablet 06/21/2023 9:11 AM CUFF RUNNER 4 Active hydrOXYzine pamoate (VISTARIL) 50 mg capsuleIndication s:Carcinoid tumor of right lung (HC) Take 1 Capsule (50 mg) by mouth every 8 hours if needed for Itching or Anxiety. 21 Capsule 06/21/2023 9:11 AM CUFF RUNNER 4 Active oxyCODONE (ROXICODONE) 5 mg immediate release tabletIndications :Carcinoid tumor of right lung (HC) Take 1-2 Tablets (5-10 mg) by mouth every 4 hours if needed for Pain (moderate - severe). 20 Tablet 06/21/2023 9:11 AM CUFF RUNNER 4 Active sennosides-docusa te (SENOKOT S) (8.6-50 mg) tabletIndications :Carcinoid tumor of right lung (HC) Take 1-4 Tablets by mouth two times daily. 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 Plan colp 04/25/18 [place] - no visible lesions, no bx. Plan pap due in 1 year pap from previous pap 03/13/19 [facility] 03/14[facility]19 TE states pt is 25 weeks (ASAD 06/27/19), no appts in chart. ([facility]) CCT tracking PCOS (polycystic ovarian syndrome) 04/26/2017 Pre-diabetes 04/07/2008 Irregular menses 03/21/2008 Exercise-induced asthma Resolved Problems Problem Noted Date Diagnosed Date Resolved Date Corneal ulcer, unspecified 08/25/2006 0 04/18/2008 FEVER 04/26/2017 Immunizations Immunization Administration Dates Next Due DTP 12/08/1993, 1,02/06/1990,1989, [...] on file Legal Sex Female 5:26 AM CUFF RUNNER Gender Identity Not on file Sexual Orientation [...] Comments Blood Pressure 134/88 05/22/2024 7:00 PM CUFF RUNNER Pulse 60 06/20/2024 7:51 AM CUFF RUNNER Temperature 36.3 C (97.4 F) 06/20/2024 7:51 AM CUFF RUNNER Respiratory Rate 12 06/20/2024 7:51 AM CUFF RUNNER Oxygen Saturation 98% 06/20/2024 7:51 AM CUFF RUNNER Inhaled Oxygen Concentration - - Weight 87.6 kg (193 lb 3.2 oz) 06/20/2024 7:51 A M CUFF RUNNER Height 165.1 cm (5' 5) 06/20/2024 7:51 AM CUFF RUNNER Body Mass Index 32.15 06/20/2024 7:51 AM CUFF RUNNER Plan of Treatment Health Maintenance Due Date Last Done Comments HPV series for age 9-45 (2 - 3-dose series) 12/10/2010 11/12/2010 Tetanus booster 03/12/2018 03/12/2008, 07/10/2002 Pap test for age 21-65 08/21/2023 , 08/20/2020, 08/19/2019, Additional history exists COVID-19 vaccine series ( season) 2024 Influenza Vaccine (#1) 2024 Depression screening for age 12+ 01/15/2025 01/16/2024 BMI (ht and wt on same day) for age 18+ 06/20/2025 06/20/2024, 06/27/2023, 06/01/2023, Additional history exists RSV vaccine for adults or (1 - 1-dose 75+ series) 2064 Hepatitis B series for 19+ Completed 04/18, 08/06/1999, 06/07/1999 HIV for age 15-65 Completed 11/12/2010 Hepatitis C screening for age 18-79 Completed 11/12/2010 Pneumococcal series for age 6-49 Aged Out No longer eligible based on patient's age to complete this topic Procedures Procedure Name Priority Date/Time Associated Diagnosis Comments ASSOCIATE PROFESSOR OF THEOLOGY THIN PREP PAP SCREEN IMAGED Routine 08/20/2020 1:00 PM CDT ANTI HIV 1/2 Routine 11/12/2010 11:20 AM CDT Screen for STD (sexually transmitted disease) ANTI HCV Routine 11/12/2010 11:20 AM CDT Screen for STD (sexually transmitted disease) from Last 3 Months or Most Recently Relevant to Health Maintenance Results * ASSOCIATE PROFESSOR OF THEOLOGY THIN PREP PAP SCREEN IMAGED (08/20/2020 1:00 PM CDT) Case Report Gynecologic Cytology Report Case: [id number] Authorizing Provider: Megan Hernandez MD Collected: 08/20/2020 1300 Ordering Location: [facility] Received: 08/23/2020 0927 First Screen: Bernabe Cummins Specimen: ASSOCIATE PROFESSOR OF THEOLOGY ThinPrep Vial Screening, Cervical/Vaginal 09/01/2020 12:03 PM CDT [facility] INTERPRETATION/ RESULT NEGATIVE FOR INTRAEPITHELIAL LESION OR MALIGNANCY (NIL) (none) 09/01/2020 12:03 PM CDT [facility]AL LABORATORY at 1203 CDT SPECIMEN ADEQUACY Satisfactory for evaluation Endocervical component present 09/01/2020 12:03 PM CDT [facility] HPV REQUEST HPV and PAP 09/01/2020 12:03 PM CDT [facility] Date of LMP 07/30/2020 09/01/2020 12:03 PM CDT [facility] Last Pap Date 08/19/2019 09/01/2020 12:03 PM CDT [facility] Last Pap Result NIL 12:03 PM CDT [facility] Additional Information 09/01/2020 12:03 PM CDT [facility] Comment: Interpreted at [facility] - [address], [place] [address] Automated Review Successful 09/01/2020 12:03 PM CDT [facility] Comment:Specimen processed s uccessfully by automated school community relations coordinator device, ThinPrep Imaging System, [employer] ANCILLARY TESTING ASSOCIATE PROFESSOR OF THEOLOGY HPV Ordered, Please see separate report 09/01/2020 12:03 PM CDT [facility] Note The pap test is [...] and malignant lesions. 09/01/2020 12:03 PM CDT [facility] Other (Cervical/Vagina l) 08/20/2020 1:00 PM CDT 08/23/2020 9:27 AM CDT us Megan Hernandez MD PATHOLOGY/CYTOLOGY Final Result [facility] [address] [place] [address], [place] * ANTI HCV (11/12/2010 11:20 AM CDT) ANTI HCV Non-reacti ve [facility] Blood specimen (specimen) BLOOD SPECIMEN / Unknown 11/12/2010 11:20 AM CDT 11/12/2010 11:08 AM CDT us Capri Marquez MD SEND OUTS F inal Result [facility] [place]IP [address] [address] * ANTI HIV 1/2 (11/12/2010 11:20 AM CDT) ANTI HIV 1/2 Non-reacti ve [facility] Blood specimen (specimen) BLOOD SPECIMEN / Unknown 11/12/2010 11:20 AM CDT 11/12/2010 11:08 AM CDT us Capri Marquez MD SEND OUTS F inal Result [facility] [place]IP [address] [address] from Last 3 Months or Most Recently Relevant to Health Maintenance Insurance [facility] NON-SD-ITS [employer] [place] [employer] Advance Directives * Full Code (Latest Code [...] Code Status Discussion: Reviewed Preferences Care Teams Nuclear Medicine Chief Technologist Relationship Specialty Start Date End Date Pedro Boudreaux MD [address] [place] [address] PCP - General Family Practice 05/10/23 Leana Syed, RN, BSN [address] [place] [address] Nurse Navigator - Oncology Registered Nurse 05/29/23 Ceferino Catalan MD [address] [address] Surgery - Cardiothoracic 06/01/23
--- OUTSIDE RECORDS SUMMARY | 2025-01-03 19:05 | XMS_ITS | Clinical Summary ---
Author Organization [place] Address [address] [place] [address] Care Team Providers Care Moisture Machine Tender Name Role Phone Madelaine Mitchell DO Unavailable Francesco Merritt MD Unavailable [phone] [facility] Primary Care Provider Madelaine Mitchell DO Unavailable Allergies Active Allergy Reactions Criticality Noted Date Comments Chlordiazepoxide Anaphylaxis High 04/24/2024 Pt reported Polymyxin B-Trimethoprim 07/20/2017 Swelling in eye Sulfa Antibiotics Swelling 09/12/2014 Medications * This document contains information received from the source organization and may not represent a complete record from that organization. Vit-Fe Fumarate-FA ( MULTIVITAMIN PLUS IRON) 27-0.8 MG TABS Take 1 tablet by mouth daily. Active metFORMIN (GLUCOPHAGE-XR) 500 MG 24 hr tabletIndications :PCOS (polycystic ovarian syndrome) TAKE 4 TABLETS BY MOUTH DAILY 360 tablet 1 9 Active metroNIDAZOLE (FLAGYL) 500 MG tabletIndications :BV (bacterial vaginosis) Take 1 tablet (500 mg) by mouth 2 times daily. 14 tablet 5 Active letrozole (FEMARA) 2.5 MG tabletIndications :Anovulation TAKE 2 TABLETS (5 MG) BY MOUTH DAILY. 10 tablet 2 5 Active medroxyPROGESTERo ne (PROVERA) 5 MG tabletIndications :Anovulation Take 1 tablet (5 mg) by mouth See Admin Instructions . 10 tablet 11 5 Active Active Problems Problem Noted Date Diagnosed Date Exercise-induced asthma 09/17/2024 Pituitary adenoma 02/15/2024 Overview (02/15/2024): 6 mm by MRI, 2023, Normal labs. 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 Plan colp 04/25/18 [place] - no visible lesions, no bx. Plan pap due in 1 year pap from previous pap 03/13/19 Pap reminder letter sent. ([facility]) 03/14/19 TE states pt is 25 weeks (ASAD 06/27/19), no appts in chart. ([facility]) CCT tracking 2007, 2010, 2014 - NIL paps 03/28/18 ASCUS pap, + HR HPV (not 16/18). Plan colp 04/25/18 [place] - no visible lesions, no bx. Plan pap due in 1 year pap from previous pap 03/13/19 Pap reminder letter sent. ([facility]) 03/14/19 TE states pt is 25 weeks (ASAD 06/27/19), no appts in chart. ([facility]) CCT tracking Headache 12/16/2016 Pre-diabetes 04/07/2008 PCOS (polycystic ovarian syndrome) Resolved Problems Problem [...] Encounters Date Type Department Care Team Description 12/24/2024 MyC Medical Advice [facility] [address] [place] [address] Madelaine Mitchell, Update 10/14/2024 Refill [facility] [address] [place] [address] Madelaine Mitchell, Medication Refill 10/13/2024 MyC Medical Advice [facility] [address] [place] [address] Madelaine Mitchell, Medication Request 10/10/2024 Telephone [facility] [address] [place] [phone] Bebe Shaw, RN Pt. Information/instruct ion from Last 3 Months Immunizations Immunization Administration Dates Next Due DTAP (<7y) 12/08/1993, 1,02/06/1990,11/30,1989 HIB(PRP-OMP)(PedvaxHIB) 11/06/1990 HPV Quadrivalent 11/12/2010 HPV9 (Gardasil) 12/12/2011,03/01/2011,11/12/2010 Hepatitis A (VAQTA)(ADULT 19+) 07/26/2006 Hepatitis A (Vaqta/Havrix)(P eds 12m-18y) 07/26/2006 Hepatitis B, Peds (Engerix-B/Recombivax HB) 04/18/2000,08/06/1999,06/07/1999 Influenza (IIV3) PF 01/17/2018,06/09/2016 Influenza Vaccine >6 months,quad, PF 02/04/2019, 01/17/2018,04/11/2017 MMR (MMRII) 10/24/2001,11/06/1990 Meningococcal ACWY (Menactra ) 07/26/2006 Meningococcal,unspecified 07/26/2006 OPV, trivalent, live 12/08/1993,11/06/18 91,1989,09/26 Rabies Vaccine 10/02/2006,08/28/2006 TD,PF 7+ (Tenivac) 05/03/2019,07/10/2002 [...] Comments Blood Pressure 150/89 04/24/2024 6:56 AM VENEER MARKER Pulse 85 04/24/2024 6:56 AM VENEER MARKER Temperature 36.9 C (98.4 F) 04/24/2024 4:30 AM VENEER MARKER Respiratory Rate 18 04/24/2024 6:56 AM VENEER MARKER Oxygen Saturation 99% 04/24/2024 6:56 AM VENEER MARKER Inhaled Oxygen Concentration - - Weight 90.7 kg (200 lb) 04/24/2024 4:30 AM VENEER MARKER Height 165.1 cm (5' 5) 04/24/2024 4:30 AM VENEER MARKER Body Mass Index 33.28 04/24/2024 4:30 AM VENEER MARKER Plan of Treatment Health Maintenance Due Date Last Done Comments ADVANCE CARE PLANNING 1989 ASTHMA ACTION PLAN 1989 ASTHMA CONTROL TEST 1989 PNEUMOCOCCAL VACCINE: PEDIAT RICS (0 to 5 YEARS) AND AT-RISK PATIENTS (6 to 49 YEARS) (1 of 2 - PCV) 2008 YEARLY PREVENTIVE VISIT 03/28/2019 03/28/20 18, 04/11/2017, 04/11/2016, Additional history exists PAP 08/20/2021 08/20/2020, 05/0 09/2020, 08/19/2019, Additional history exists COVID-19 VACCINE ( - 2023-2 5 season) 2024 INFLUENZA VACCINE (#1) 2024 , 02/04/2019, 01/17/2018, Additional history exists PHQ-9 03/19/2025 09/17/2024, 10/15, 04/30/2021, Additional history exists ANNUAL REVIEW OF HM ORDERS 09/17/2025 09/17/2024, DIABETES SCREENING 04/24/2027 04/24/2024, 0 01/05/2024, 01/03/2024, Additional history exists DTAP/TDAP/TD VACCINE (12 - T d or Tdap) 02/19/2032 02/18/2022, 05/03/2019, 05/03/2019, Additional history exists ZOSTER VACCINE (1 of 2) 07/28/2039 HEPATITIS B VACCINE Completed 04/18/2000, 08/06/1999, 06/07/1999 MENINGITIS VACCINE Completed 07/26/2006, 07/26/2006 HEPATITIS C SCREENING Completed 11/12/2010 HPV VACCINE Completed 12/12/2011, 02/15, 11/12/2010, Additional history exists HIV SCREENING Completed 05/05/2016, 11/12/2010 DEPRESSION ACTION PLAN Completed 09/25/2018 HPV FOLLOW-UP Completed 08/20/2020, 05/0 07/2019, 08/19/2019, Additional history exists PAP FOLLOW-UP Completed 08/20/2020, 05/0 09/2020, 08/19/2019, Additional history exists Procedures Procedure Name Priority Date/Time Associated Diagnosis Comments BASIC METABOLIC PANEL STAT 04/24/2024 4:57 AM VENEER MARKER HPV HIGH RISK TYPES DNA CERVICAL Routine 03/28/2018 9:20 AM VENEER MARKER PCOS (polycystic ovarian syndrome) PAP IMAGED THIN LAYER SCREEN Routine 03/28/2018 9:09 AM VENEER MARKER Encounter for general adult medical examination with abnormal findings HIV ANTIGEN ANTIBODY COMBO Routine 05/05/2016 9:51 AM VENEER MARKER test positive from Last 3 Months or Most Recently Relevant to Health Maintenance Results * (ABNORMAL) Basic metabolic panel (04/24/2024 4:57 AM VENEER MARKER) Sodium 138 135 - 145 mmol/L 04/24/2024 5:26 AM [facility] Potassium 4.4 3.4 - 5.3 mmol/L 04/24/2024 5:26 AM [facility] Chloride 102 98 - 107 mmol/L 04/24/2024 5:26 AM [facility] Carbon Dioxide (CO2) 22 22 - 29 mmol/L 04/24/2024 5:26 AM [facility] Anion Gap 14 7 - 15 mmol/L 04/24/2024 5:26 AM [facility] Urea Nitrogen 9.9 6.0 - 20.0 mg/dL 04/24/2024 5:26 AM [facility] Creatinine 0.61 0.51 - 0.95 mg/dL 04/24/2024 5:26 AM [facility] GFR Estimate >90 >60 mL/min/1.7 3m2 04/24/2024 5:26 AM [facility] Comment:eGFR calculated usin g 2020 CKD-EPI equation. Calcium 9.3 8.8 - 10.4 mg/dL 04/24/2024 5:26 AM [facility] Comment:Reference intervals for this test were updated on 10/31/2023 to reflect our healthy population more accurately. There may be differences in the flagging of prior results with similar values performed with this method. Those prior results can be interpreted in the context of the updated reference intervals. Glucose 100(H) 70 - 99 mg/dL 04/24/2024 5:26 AM [facility] Blood BLOOD SPECIMEN / Unknown Venipuncture / Unknown 04/24/2024 4:57 AM VENEER MARKER 04/24/2024 5:01 AM VENEER MARKER us Jose Price MD LAB - BLOOD ORDER MENDEZ Final Result LABORATORY [facility] [address] [facility] (1st floor, no room number) [place] [address], [facility] * (ABNORMAL) HPV High Risk Types DNA Cervical (03/28/2018 9:20 AM VENEER MARKER) HPV Source SurePath 04/03/2018 7:38 AM VENEER MARKER [facility] HPV 16 DNA Negative NEG^Nega tive 04/03/2018 4:18 PM VENEER MARKER [facility] HPV 18 DNA Negative NEG^Nega tive 04/03/2018 4:18 PM VENEER MARKER [facility] Other HR HPV Positive(A) NEG^Nega tive 04/03/2018 4:18 PM VENEER MARKER [facility] Final Diagnosis This patient's sample is positive for other HR HPV DNA (types 31, 33, 35, 39, 45, 51, 52, 56, 58, 59, 66 or 68), not HPV 16 or HPV 18 DNA. This result requires clinical correlation with concurrent cytology findings. 04/03/2018 4:18 PM VENEER MARKER [facility] Comment: This test was developed and its performance characteristics determined by the [facility], Molecular Diagnostics Laboratory. It has not [...] Specimen Description Cervical Cells 04/03/2018 7:38 AM VENEER MARKER [facility] Comment:[id number] 03/28/2018 9:20 AM VENEER MARKER 03/28/2018 2:56 PM VENEER MARKER us Tristen Spann PHYSICIAN SURGEON MASTER CARPENTER LAB - BLOOD ORDERABL ES Final Result [facility] [address] [place] [address] * (ABNORMAL) Pap imaged thin layer screen reflex to HPV if ASCUS - recommend age 25 - 29 (03/28/2018 9:09 AM VENEER MARKER) PAP ASC-US(A) JOSE JUAN Singh Report Patient Name: MADI YANG MR#: [id number] Specimen #: [id number] Collected: 03/28/2018 Received: 03/29/2018 Reported: 04/02/2018 14:41 [...] Carmine Stevens M.D. Processed and screened at [facility], [facility] CLINICAL HISTORY: LMP: 03/05/2018 A previous normal pap Date of Last Pap: 01/01/2015, Papanicolaou Test Limitations: Cervical cytology is a screening test with limited sensitivity; regular screening is critical for cancer prevention; Pap tests are primarily effective for the diagnosis/preventi on of squamous cell carcinoma, not adenocarcinomas or other cancers. TESTING LAB LOCATION: [facility] [address] [place] [address] COLLECTION SITE: Client: [facility] Location: RIIM (R) COPATH Cytologic material (specimen) 03/28/2018 9:09 AM VENEER MARKER 03/29/2018 11:25 AM VENEER MARKER us Tristen Spann PHYSICIAN SURGEON MASTER CARPENTER LAB - OPTIME CLINICA L SPECIMEN Final Result Performing Organization Address City/[facility]/ZIP Co de Phone Number COPATH * HIV Antigen Antibody Combo (05/05/2016 9:51 AM VENEER MARKER) HIV Antigen Antibody Combo Nonreactive HIV-1 p24 Ag & HIV-1/HIV-2 Ab Not Detected NR [facility] Blood specimen (specimen) 05/05/2016 9:51 AM VENEER MARKER 05/05/2016 9:56 AM VENEER MARKER us Madelaine Mitchell DO LAB - BLOOD ORDERABLES Fi nal Result Performing Organization Address City/[facility]/ZIP Co de Phone Number [facility] [address] from Last 3 Months or Most Recently Relevant to Health Maintenance Insurance BCBS OUT OF STATE BCBS OUT OF STATE BCBS OUT OF STATE Care Teams Moisture Machine Tender Relationship Specialty Start Date End Date [facility], [address] [address] PCP - General 11/28/23 Madelaine Mitchell DO music executive 07/26/16 Francesco Merritt MD [address] [place], [place] [id number] [place], [place] [address] Family Medicine - Sports Medicine 12/14/18 Madelaine Mitchell DO [address] [facility] 100 [place], [place] [address] Assigned OBGYN Provider 03/09/24
--- OUTSIDE RECORDS SUMMARY | 2025-01-03 19:05 | XMS_ITS | Encounter Summary ---
Author Organization [place] [facility] Address [address] [place] [address]. [place] [address] Care Team Providers Care Shade Cutter Name Role Phone Madelaine Mitchell DO Unavailable Francesco Merritt MD Unavailable [facility], [facility] [place] Primary Care Provider Madelaine Mitchell DO Unavailable Reason for Visit * Reason Comments Medication Refill Encounter Details Date Type Department Care Team (Late st Contact Info) Description 10/14/2024 Refill [facility] [address] [place] [phone] Madelaine Mitchell DO [address] [facility] [address] [place], [place] [phone] Medication Refill Social History Tobacco Use Types [...] Telephone Encounter - Grisel Catalan RN - 10/14/2024 9:43 AM CDT See also the my chart message that the pt sent. Grisel Parada RN Meta PROTECTION SPECIALIST documented in this encounter Plan of Treatment Not on file documented as of this encounter Visit Diagnoses Diagnosis Anovulation Female infertility associated with anovulation documented in this encounter Additional Health Concerns Assessment Noted Time PHQ-9 Depression Total Score: 0 09/18/19 25 9:05 AM CDT documented as of this encounter Care Teams Shade Cutter Relationship Specialty Start Date End Date [facility], [address] [address] PCP - General 11/28/23 Madelaine Mitchell DO glue mixer 07/26/16 Francesco Merritt MD [facility] [address] Family Medicine - Sports Medicine 12/14/18 Madelaine Mitchell DO [facility] [address] [place] [address] Assigned OBGYN Provider 03/09/24 documented as of this encounter
--- OUTSIDE RECORDS SUMMARY | 2025-01-03 19:05 | XMS_ITS | Encounter Summary ---
Author Organization [place] Address [address] [place] [address]. [place] [address] Care Team Providers Care Caustic Purification Operator Name Role Phone Madelaine Mitchell DO Unavailable Francesco Merritt MD Unavailable [phone] [facility] Primary Care Provider Madelaine Mitchell DO Unavailable Encounter Details Date Type Department Care Team (Late st Contact Info) Description 08/13/2024 [facility] [address] [place] [phone] Grisel Catalan, RN Social History Tobacco Use Types Packs/Day [...] documented as of this encounter Care Teams Caustic Purification Operator Relationship Specialty Start Date End Date Clinic, [address] [address] PCP - General 11/28/23 Madelaine Mitchell DO machinist linotype 07/26/16 Francesco Merritt MD [address] [place] [address] Family Medicine - Sports Medicine 12/14/18 Madelaine Mitchell DO [address] [facility] [place] [address] Assigned OBGYN Provider 03/09/24 documented as of this encounter
--- OUTSIDE RECORDS SUMMARY | 2025-01-03 19:05 | XMS_ITS | Encounter Summary ---
Author Organization [place] Address [address] [place] [address] Care Team Providers Care Willow Analyst Name Role Phone Madelaine Mitchell DO Unavailable Rosamaria Jones MD Primary Care Provider Unavailabl e Francesco Merritt MD Unavailable [phone] Gabe Carl MD Unavailable [phone] Danielle Alcantar MD Unavailable [phone] [facility] Primary Care Provider Madelaine Mitchell DO Unavailable [phone] Encounter Details Date Type Department Care Team (Late st Contact Info) Description 07/11/2021 MyC Medical Advice [facility] [address] [place] [address] Madelaine Mitchell DO [address] [place] [address] Social History Tobacco Use Types Packs/Day Years [...] Out COVID-19 04/24/2024 04/24/2024 04/24/2024 6:06 AM 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 Assessment Noted Time PHQ-9 Depression Total Score: 10 022 9:03 AM 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 documented as of this encounter Care Teams Willow Analyst Relationship Specialty Start Date End Date Rosamaria Jones MD PCP - General Internal Medicine 10/06/18 11/27/[address] [address] PCP - General 11/28/23 Madelaine Mitchell DO bread dumper 07/26/16 Francesco Merritt MD [address] [place] [id number] Family Medicine - Sports Medicine 12/14/18 Gabe Carl MD [address] [place] [address] [place] [address] Assigned PCP 05/09/21 06/08/24 Danielle Alcantar MD [address] [place] [id number] Assigned Musculoskeletal Provider 07/18/21 02/03/23 Madelaine Mitchell DO [address] [address] Assigned OBGYN Provider 03/09/24 documented as of this encounter
--- OUTSIDE RECORDS SUMMARY | 2025-01-03 19:05 | XMS_ITS | Clinical Summary ---
Author Organization [facility] Address [address] [place] [address] Care Team Providers Care Judicial Clerk Name Role Phone Elsewhere, Pcp Primary Care Provider Unavailabl e Source Comments Patient records contain information from all sites at [facility]. For routine questions regarding patient records, call [phone] during business hours, M-F 8:00 AM - 5:00 PM Central Time. Record requests for emergency care only can be directed to [phone] at any time.[facility] Allergies Active Allergy Reactions Criticality Noted Date Comments Chlordiazepoxide Anaphylaxis High 04/24/2024 Pt reported Polymyxin B Edema (Reselect Reaction) High 08/16/2021 Polymyxin B Sulf-Trimethoprim Edema (Reselect Reaction) 07/20/2017 Swelling in eye Swelling in eye Sulfa (Sulfonamide Antibiotics) Other (see comments) 04/03/2021 swelling Medications metFORMIN (GLUCOPHAGE) 1,000 mg tablet Take 1,000 mg by mouth 2 (two) times a day with meals. Active pvucvqb-Fw-utef -FA (VINATE ONE) 60 mg iron-1 mg per tablet Take 1 tablet by mouth daily. Active letrozole (Femara) 2.5 mg tablet take 2 tablets (5 mg) by mouth daily. 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 Gender Identity Not on file Sexual Orientation Not on file Last Filed Vital Signs Vital Sign Reading Time Taken Comments Blood Pressure 122/83 09/04/2024 6:20 PM CDT Pulse 83 09/04/2024 6:20 PM CDT Temperature 37 C (98.6 F) 09/04/2024 6:20 PM CDT Respiratory Rate 16 09/04/2024 6:20 PM CDT Oxygen Saturation 98% 09/04/2024 6:20 PM CDT Inhaled Oxygen Concentration - - Weight 86.9 kg (191 lb 9.3 oz) 09/04/2024 6:22 P M CDT Height 165.1 cm (5' 5) 09/04/2024 6:21 PM CDT Body Mass Index 31.88 09/04/2024 6:21 PM CDT Plan of Treatment Health Maintenance Due Date Last Done Comments HIV Screening 1989 Hepatitis C Screening 1989 COVID-19 Vaccine (#1) 1994 Hepatitis B Vaccines (1 of 3 - 19+ 3-dose series) 2008 Cervical/Vaginal Cancer Screening 08/21/2023 08/20/2020, 03/28/2018 Lipid (Cholesterol) Screening 09/27/2023 09/26/2018, 09/28/2017 Depression Screening (Annual PHQ-2) 04/17/2024 Influenza Vaccine (#1) 2024 , 02/04/2019, 01/17/2018, Additional history exists DTaP,Tdap,and Td Vaccines (12 - Td or Tdap) 02/19/2032 02/18/2022, 05/03/2019, 05/03/2019, Additional history exists HPV Vaccines Completed 12/12/2011, 02/15, 11/12/2010, Additional history exists IPV Vaccines Aged Out No longer eligi ble based on patient's age to complete this topic Pneumococcal vaccine (0-49 years) Aged Out No longer eligible based on patient's age to complete [place] [address] [place] [address] [facility] Care Teams Judicial Clerk Relationship Specialty Start Date End Date Elsewhere, Pcp PCP - General Internal Medicine 04/03/21
--- OUTSIDE RECORDS SUMMARY | 2025-01-03 19:05 | XMS_ITS | Encounter Summary ---
Author Organization [facility] Address [address] [place] [address] Care Team Providers Care Food Mixer Assembler Name Role Phone Madelaine Mitchell DO Unavailable Rosamaria Jones MD Primary Care Provider UnavailFrancesco Andrea MD Unavailable Elaina Jiang APRN [facility] Unavailable [phone] Rosamaria Jones MD Unavailable Unavailable Gabe Carl MD Unavailable [phone] Danielle Alcantar MD Unavailable [facility] Primary Care Provider Madelaine Mitchell DO Unavailable Encounter Details Date Type Department Care Team (Late st Contact Info) Description 03/14/2021 MyC Medical Advice [facility] [address] [place] [phone] Madelaine Mitchell DO [address] [place], [place] [address] Anovulation (Primary Dx) Social History Tobacco Use [...] the my chart message. Clif Catalan RN RATOR OPERATOR STRAIGHT BEVEL GEAR documented in this encounter Plan of Treatment Not on file documented as of this encounter Visit Diagnoses Diagnosis Anovulation- Primary Female infertility associated with anovulation documented in this encounter Additional Health Concerns Infection Onset Date Last Indicated Resolved Time Rule Out COVID-19 03/31/2021 03/31/2021 03/31/2021 7:10 AM GENERATOR OPERATOR STRAIGHT BEVEL GEAR Rule Out COVID-19 09/15/2022 09/15/2022 09/15/2022 9:15 AM CDT Rule Out COVID-19 04/24/2024 04/24/2024 04/24/2024 6:06 AM GENERATOR OPERATOR STRAIGHT BEVEL GEAR Assessment Noted Time PHQ-9 Depression Total Score: 10 019 7:03 AM CDT documented as of this encounter Care Teams Food Mixer Assembler Relationship Specialty Start Date End Date Rosamaria Jones MD PCP - General Internal Medicine 10/06/18 11/27/[address] [address] PCP - General 11/28/23 Madelaine Mitchell DO financial accounting manager 07/26/16 Francesco Merritt MD [facility] [place], [place] [address] [place] [address] Family Medicine - Sports Medicine 12/14/18 Elaina Jiang APRN PUBLIC POLICY PROFESSOR [address] [place] [address] Assigned PCP 10/27/19 04/03/21 Rosamaria Jones MD [place]CT[place] IN [place] 03/16/2024 Assigned PCP 04/04/21 05/08/21 [place] [address] [place] [address] [place] [address] Assigned PCP 05/09/21 06/08/24 Danielle Alcantar MD [address] [place] [address] Assigned Musculoskeletal Provider 07/18/21 02/03/23 Madelaine Mitchell DO [address] [place] [address] Assigned OBGYN Provider 03/09/24 documented as of this encounter
--- OUTSIDE RECORDS SUMMARY | 2025-01-03 19:05 | XMS_ITS | Encounter Summary ---
Author Organization [facility] Address [address] [place] [address]. [place] [address] Care Team Providers Care Ux Visual Designer Name Role Phone Madelaine Mitchell DO Unavailable Francesco Merritt MD Unavailable Gabe Carl MD Unavailable [phone] [place] [address] Primary Care Provider Madelaine Mitchell DO Unavailable [phone] Reason for Visit * Reason Onset Date Comments Refill Request 03/27/2024 Encounter Details Date Type Department Care Team (Late st Contact Info) Description 03/27/2024 Tj Daniels [facility] [address] [place] [address] Madelaine Mitchell DO [address] [place] [address] Refill Request Social History Tobacco Use Types [...] to pt to confirm. Ruby Rubio RN WARPER FIXER [place] DEODORIZER SERVICER documented in this encounter Plan of Treatment Not on file documented as of this encounter Visit Diagnoses Diagnosis Anovulation Female infertility associated with anovulation documented in this encounter Additional Health Concerns Infection Onset Date Last Indicated Resolved Time Rule Out COVID-19 04/24/2024 04/24/2024 04/24/2024 6:06 AM AIR DEODORIZER SERVICER Assessment Noted Time PHQ-9 Depression Total Score: 21 023 10:16 AM CDT documented as of this encounter Care Teams Ux Visual Designer Relationship Specialty Start Date End Date [facility], [address] [address] PCP - General 11/28/23 Madelaine Mitchell DO mine foreman 07/26/16 Francesco Merritt MD [facility] [place] [address] Family Medicine - Sports Medicine 12/14/18 Gabe Carl MD [address] [facility] [address] [place] [address] Assigned PCP 05/09/21 06/08/24 Madelaine Mitchell DO [address] [facility] [place] [address] Assigned OBGYN Provider 03/09/24 documented as of this encounter
--- OUTSIDE RECORDS SUMMARY | 2025-01-03 19:05 | XMS_ITS | Encounter Summary ---
Author Organization [facility] Address [address] [place] [address] Care Team Providers Care Photo Print Specialist Name Role Phone Madelaine Mitchell DO Unavailable [phone] Rosamaria Jones MD Primary Care Provider UnavailFrancesco Andrea MD Unavailable [facility] Unavailable FranciscanjElaina Fish APRN CADD OPERATOR Unavailable [phone] Rosamaria Jones MD Unavailable Unavailable Gabe Carl MD Unavailable [phone] Danielle Alcantar MD Unavailable [phone] [facility], [facility] Primary Care Provider Madelaine Mitchell DO Unavailable [phone] Reason for Visit * Reason Comments Medication Refill Encounter Details Date Type Department Care Team (Late st Contact Info) Description 10/05/2019 Refill M [address] [address] Madelaine Mitchell DO [address] [facility] 100 [place] [address] Medication Refill Social History Tobacco Use Types [...] RN - 10/22/2019 10:31 AM CDT Sent Wannyi message to schedule appt. Queta Morales R.N. [...] COVID-19 03/31/2021 03/31/2021 03/31/2021 7:10 AM DRY BOSS Rule Out COVID-19 09/15/2022 09/15/2022 09/15/2022 9:15 AM CDT Rule Out COVID-19 04/24/2024 04/24/2024 04/24/2024 6:06 AM DRY BOSS Assessment Noted Time PHQ-9 Depression Total Score: 10 019 7:03 AM CDT documented as of this encounter Care Teams Photo Print Specialist Relationship Specialty Start Date End Date Rosamaria Jones MD PCP - General Internal Medicine 10/06/18 11/27/23 [facility], [address] [address] PCP - General 11/28/23 Madelaine Mitchell DO supervisor hydrochloric area 07/26/16 Francesco Merritt MD [address] [place] [address] Family Medicine - Sports Medicine 12/14/18 Loyda Farmer MD Assigned PCP 09/29/19 10/26/19 Elaina Jiang APRN CADD OPERATOR [address] [place] [address] Assigned PCP 10/27/19 04/03/21 Rosamaria Jones MD INACTIVE IN [place] 03/16/2024 Assigned PCP 04/04/21 05/08/21 Gabe Carl MD [address] [facility] [place] [address] Assigned PCP 05/09/21 06/08/24 Danielle Alcantar MD [address] [place] [address] Assigned Musculoskeletal Provider 07/18/21 02/03/23 Madelaine Mitchell DO [address] [place] [address] [address] Assigned OBGYN Provider 03/09/24 documented as of this encounter
--- OUTSIDE RECORDS SUMMARY | 2025-01-03 19:05 | XMS_ITS | Encounter Summary ---
Author Organization [facility] Address [address] [place] [address]. [place] [address] Care Team Providers Care Beater Tender Name Role Phone Madelaine Mitchell DO Unavailable [phone] Francesco Merritt MD Unavailable [phone] Gabe Carl MD Unavailable [phone] [place] [address] [facility] Primary Care Provider Madelaine Mitchell DO Unavailable [phone] Encounter Details Date Type Department Care Team (Late st Contact Info) Description 02/20/2024 [facility] Medical Advice [facility] [place] [address] [place] [phone] Madelaine Mitchell DO [address] [place] [address] Social History Tobacco Use Types Packs/Day Years [...] Please see mychart: Pt response CASTRO Baez T COORDINATOR * Telephone Encounter - Marcella Arce RN - 02/22/2024 8:01 AM CST Please see mychart message: Pt response CASTRO Baez T COORDINATOR * Telephone Encounter - Marcella Arce RN - 02/21/2024 11:00 AM EVENT COORDINATOR Please mychart message: Pt response to questions. CSATRO Baez T COORDINATOR * Telephone Encounter - Grisel Catalan RN - 02/20/2024 11:46 AM EVENT COORDINATOR Please address the chart message. Last OV 02/08/24. Clif Catalan RN T COORDINATOR documented in this encounter Plan of Treatment Not on file documented as of this encounter Visit Diagnoses Not on filedocumented in this encounter Additional Health Concerns Infection Onset Date Last Indicated Resolved Time Rule Out COVID-19 04/24/2024 04/24/2024 04/24/2024 6:06 AM EVENT COORDINATOR Assessment Noted Time PHQ-9 Depression Total Score: 21 023 10:16 AM CDT documented as of this encounter Care Teams Beater Tender Relationship Specialty Start Date End Date [facility], [address] [address] PCP - General 11/28/23 Madelaine Mitchell DO digital marketing program manager 07/26/16 Francesco Merritt MD [address] [facility] [address] [place] [address] Family Medicine - Sports Medicine 12/14/18 Gabe Carl MD [address] [facility] [place] [address] Assigned PCP 05/09/21 06/08/24 Madelaine Mitchell DO [address] [facility] 100 [place] [address] Assigned OBGYN Provider 03/09/24 documented as of this encounter
[2025-01-03 19:29] VITALS: BP 114/73; PULSE 73; RESP 18; TEMP 36.2; O2SAT 98; BMI 31.4
--- NOTE | 2025-01-03 19:56 | ED.DIZZY ---
HPI - Dizziness General Time Seen by Provider: 19:56 Date Seen: 01/03/25 Chief Complaint: Dizziness/Vertigo Stated Complaint: lightheaded/dizziness Time Seen by Provider: 01/03/25 19:56 Source: patient and RN notes reviewed Mode of arrival: ambulatory Limitations: no limitations History of Present Illness HPI Narrative: This 34-year-old female is coming into the ER with about a week's worth of chest heaviness and pressure. She states she feels nauseated, she has dizziness and lightheadedness. She told nursing staff she feels like she has still her body to take a deep breath. She states she has always dismiss is anxious. She notes she did have labs earlier this summer, has a follow-up coming with Dr. Boudreaux. She states that she is going to ask him to see a neurologist. She has not had any cough or cold symptoms, no fevers or chills. She felt that they did not take her blood pressure in triage, they did recheck it when she got into the room and it was 125/77. She told nursing staff that she is concerned about her blood pressure and having an EKG. She does have a pituitary adenoma but in September her CBC, sed rate, comprehensive metabolic panel, C-reactive protein, calcitonin, TSH including free T4 and T3 were all normal. She states that her current symptoms have been since last Monday, about a week but admits that she is had symptoms on and off for 2 years now. She denies any COVID at the beginning of her symptoms, does not recollect any illness proceeding her symptoms. Related Data Home Medications ?Medication ?Instructions ?Recorded ?Confirmed thiamine HCl (vitamin B1) 100 mg 100 mg PO QDAY 10/08/24 01/03/25 capsule diazepam 2 mg tablet 2 - 4 mg PO BID PRN 01/03/25 01/03/25 letrozole 2.5 mg tablet mg PO 01/03/25 vit no.95-ferrous 1 tab PO DAILY 01/03/25 01/03/25 fumarate 28 mg-folic acid 800 mcg tablet () Previous Rx's ?Medication ?Instructions ?Recorded metformin 500 mg tablet 1,000 mg (2 x 500 mg) PO BID #360 11/12/24 tabs Allergies Allergy/AdvReac Type Severity Reaction Status Date / Time polymyxin B Allergy Severe Swelling Verified 11/09/24 10:58 trimethoprim Allergy Severe Swelling Verified 11/09/24 10:58 chlordiazepoxide Allergy Intermediate Swelling Verified 11/09/24 10:58 of Lip/Tongue/Throat Sulfa (Sulfonamide Allergy Mild Swelling Verified 11/09/24 10:58 Antibiotics) Review of Systems Status of ROS: Reports: 6 or more systems reviewed and unremarkable except as noted in History and below [facility] Medical History Alcohol abuse ?F10.10 - Alcohol abuse, uncomplicated (ICD-10) Primary cancer of right middle lobe of lung ?C34.2 - Malignant neoplasm of middle lobe, bronchus or lung (ICD-10) Lump of right breast ?N63.10 - Unspecified lump in the right breast, unspecified quadrant (ICD-10) Allergic rhinitis ?J30.9 - Allergic rhinitis, unspecified (ICD-10) Atypical mole ?D22.9 - Melanocytic nevi, unspecified (ICD-10) Paresthesia of left arm ?R20.2 - Paresthesia of skin (ICD-10) Pituitary adenoma ?D35.2 - Benign neoplasm of pituitary gland (ICD-10) Obesity ?E66.9 - Obesity, unspecified (ICD-10) Abnormal cervical Papanicolaou smear (2019) ?R87.619 - Unspecified abnormal cytological findings in specimens from cervix uteri (ICD-10) Insomnia ?G47.00 - Insomnia, unspecified (ICD-10) Anxiety ?F41.9 - Anxiety disorder, unspecified (ICD-10) Depression ?F32.A - Depression, unspecified (ICD-10) Polycystic ovary syndrome ?E28.2 - Polycystic ovarian syndrome (ICD-10) Gestational hypertension ?O13.9 - Gestational [-induced] hypertension without significant proteinuria, unspecified trimester (ICD-10) Erosive gastritis ?K29.60 - Other gastritis without bleeding (ICD-10) Alcohol withdrawal syndrome ?F10.239 - Alcohol dependence with withdrawal, unspecified (ICD-10) Surgical History S/P thoracotomy ?Z98.890 - Other specified postprocedural states (ICD-10) Status post delivery (2015) ?Z98.891 - History of uterine scar from previous surgery (ICD-10) History of left knee surgery ?Z98.890 - Other specified postprocedural states (ICD-10) History of laser assisted in situ keratomileusis (2009) ?Z98.890 - Other specified postprocedural states (ICD-10) History of knee surgery (2016) ?Z98.890 - Other specified postprocedural states (ICD-10) History of colposcopy (2019) ?Z98.890 - Other specified postprocedural states (ICD-10) History of colonoscopy ?Z98.890 - Other specified postprocedural states (ICD-10) Family History Aunt Breast cancer Depression Other Kidney disease Prostate cancer Social History Narrative: , works in [employer], 2 kids Exercises 3/week (walk/run) Non-smoker- quiet 2015, hx of 8 years on and off smoking Social drinker (1/week) What is your current living situation?: I presently have a place to live Problems where you live: no known problems In the past 12 months, utilities in danger of being shut off: no In past 12 months, lack of transportation kept you from medical appts, meetings, work, or getting things needed for daily living: no In the past 12 mos, have been you worried that your food would run out before you had money to buy more?: sometimes true In the past 12 mos, the food you bought just didn't last and you didn't have money to buy more?: never true Physical activity type: none Smoking Status: Former smoker Do you use any of these nicotine containing products: None Second hand tobacco smoke exposure: No How often do you have a drink containing alcohol: 2-3 times a week How often do you have six or more drinks on one occasion: Never AUDIT-C Alcohol total score: 3 Non-prescribed substance use: denies use Are you now , , , , never or living with a partner: Social isolation score (0-1 are the most socially isolated patients): 1 How often does anyone, including family, friends and others, physically hurt you: never How often does anyone, including family, friends and others, insult or talk down to you: never How often does anyone, including family, friends and others, threaten you with harm: never How often does anyone, including family, friends and others, scream or curse at you: never Gender Identity: female Are you currently sexually active: Yes Health Related Social Needs: food insecurity (Z59.41) Exam Const: Vital Signs, click to edit/add: Vital Signs - 24 hr 01/03/25 19:29 01/03/25 20:39 Temperature 97.2 F L Pulse Rate [Right Pulse Oximeter] 73 61 Respiratory Rate 18 18 Blood Pressure [Ri ght Upper Arm] 114/73 120/79 Pulse Oximetry 98 98 Oxygen Delivery Me thod Room Air Room Air This patient is alert, interactive, no apparent distress, sitting up in the bed in exam room 1 sclera clear, symmetrical facial function, flat affect, speech is normal. Lungs are clear, good air entry, no wheezing crackles, no tachypnea, no accessory muscle use, no prolonged expiratory phase heard. CV regular rate and rhythm, no murmur, normal S1-S2, no S3-S4. Abdomen is soft, nontender, nondistended, organomegaly, rebound or guarding. She has no lower extremity edema, ambulatory into the ED of her own accord. Documenting provider has reviewed patient's vital signs: yes Course Course ED Course: Patient does not want to wait for labs. I have reviewed with her that I do have some concerns that we are not going to find the etiology of her symptoms but do think we should check labs to make sure that we are not missing anything new. Her EKG is reassuring. Would recommend at least a point of care troponin, recheck her electrolytes, make sure D-dimer is normal. We have discussed if the D-dimer were to come back elevated, chest CT PE protocol would be recommended to ensure no pulmonary emboli. She really does not want to wait, she states she would come right back if her D-dimer were elevated. She is in agreement to at least wait for point of care troponin. I have discussed with her I typically do not do labs is patient's are going to leave but do understand her situation. She does agree to come back if her D-dimer were elevated. Will get these labs and contact her with abnormalities. Reevaluation(s) Time of Reevaluation #1: 20:48 Reevaluation #1: Reviewed with patient that her CBC, point of care troponin and comprehensive metabolic panel are normal. She wanted to know what she should tell her primary care doctor. I reviewed with her that it is difficult for me to tell her what to do. If she has been having symptoms for couple years and no defined problems found, that becomes difficult for us to help her navigate. She would like to see Neurology, I told her to talk to her doctor about this. She did tell me that she had seen endocrine already. We will let her know of any abnormal pending labs, she will return if the D-dimer is abnormal to get chest CT PE study done. Vital Signs Vital signs: Initial Vital Signs Temperature 97.2 F L 01/03/25 19:29 Temperature Source Temporal Artery Scan 01/03/25 19:29 Pulse Rate 73 01/03/25 19:29 Respiratory Rate 18 01/03/25 19:29 Blood Pressure 114/73 01/03/25 19:29 Blood Pressure Mean 86 01/03/25 19:29 Blood Pressure Position Sitting 01/03/25 19:29 Pulse Oximetry 98 01/03/25 19:29 Oxygen Delivery Method Room Air 01/03/25 19:29 Vital Signs Temperature 97.2 F L 01/03/25 19:29 Pulse Rate 73 01/03/25 19:29 Respiratory Rate 18 01/03/25 19:29 Blood Pressure 114/73 01/03/25 19:29 Pulse Oximetry 98 01/03/25 19:29 Oxygen Delivery Method Room Air 01/03/25 19:29 Temperature 97.2 F L 01/03/25 19:29 Pulse Rate 61 01/03/25 20:39 Respiratory Rate 18 01/03/25 20:39 Blood Pressure 120/79 01/03/25 20:39 Pulse Oximetry 98 01/03/25 20:39 Oxygen Delivery Method Room Air 01/03/25 20:39 MDM - Dizziness Lab Data Attestation: I reviewed the patient's lab results. Labs: Lab Results 01/03/25 Range/Units 20:16 WBC 9.61 (4.50-11.00) K/uL RBC 4.36 (4.00-5.20) m/uL Hgb 12.9 (12.0-16.0) gm/dL Hct 39.3 (33.0-51.0) % MCV 90 (80-100) fL MCH 30 (26-34) pg MCHC 33 (32-36) gm/dL RDW Coeff of Pool 12.1 (11.5-15.5) % Plt Count 257 (140-440) K/uL Neut % (Auto) 61.4 (42.0-72.0) % Lymph % (Auto) 30.6 (20-44) % Valencia % (Auto) 5.6 (0.0-11.0) % Eos % (Auto) 1.8 (0.0-7.0) % Baso % (Auto) 0.5 (0.0-3.0) % Neut # (Auto) 5.90 (1.7-7.0) K/uL Lymph # (Auto) 2.94 H (0.90-2.90) K/uL Valencia # (Auto) 0.50 (0.00-0.90) K/UL Eos # (Auto) 0.17 (0.00-0.50) K/uL Baso # (Auto) 0.05 (0.00-0.30) K/uL Abs Immat Gran (auto) 0.01 (0.00-0.30) K/uL Imm/Tot Granulo (auto) 0.1 % ESR 7 (2-20) mm/hr D-Dimer Quant (PE/DVT) < 0.27 (0.00-0.50) ug/ml Sodium 140 (135-149) mmol/L Potassium 4.5 (3.6-5.1) mmol/L Chloride 103 (96-114) mmol/L Carbon Dioxide 30 (20-32) mmol/L Anion Gap 7 (7-15) mEq/L BUN 20 (5-24) mg/dL Creatinine 0.9 (0.5-1.5) mg/dL Estimated Creat Clear 78.51 Estimated GFR 86 ml/min Glucose 108 (60-115) mg/dL Calcium 9.6 (8.4-10.6) mg/dL Total Bilirubin 0.3 (0.1-1.5) mg/dL AST 24 (12-35) U/L ALT 15 (4-35) U/L Alkaline Phosphatase 70 (40-150) U/L NT-Pro-B Natriuret Pep < 20 (See Note) pg/mL Total Protein 7.4 (6.0-8.3) g/dL Albumin 4.7 (3.3-5.0) g/dL Lipase 176 (23-300) U/L POC Troponin I 0.00 L (0.01-0.04) ng/ml ECG Data Attestation: I personally reviewed and interpreted this ECG as follows: (Sinus bradycardia, 59 beats per minute. No evidence of ischemia or infarct.) ECG interpretation date: 01/03/25 ECG interpretation time: 19:57 Prior ECG tracings: available for review Discharge Plan Discharge Clinical Impression: Chest heaviness, Nausea, Episodic lightheadedness Patient Disposition: Home, Self-Care Condition: Stable Instructions: Chest Pain (ED), Lightheadedness (ED) Additional Instructions: We will contact you if the D-dimer does come back elevated; you will need to return for chest CT PE protocol if that does happen. Otherwise, if labs are normal, you are to follow-up as scheduled with Dr. Boudreaux in clinic. Activity Level: Activity as Tolerated Prescriptions: No Action thiamine HCl (vitamin B1) 100 mg capsule 100 mg PO QDAY letrozole 2.5 mg tablet PO PNV no.95-ferrous fumarate-FA [] 28 mg iron- 800 mcg tablet 1 tab PO DAILY diazepam 2 mg tablet 2 - 4 mg PO BID PRN metformin 500 mg tablet 1,000 mg PO BID Qty: 360 0RF Follow Up/Referrals: Pedro Boudreaux MD [Primary Care Provider, Family Practice] Stand Alone Forms: MyHealth Info Instructions
[2025-01-03 20:22] LABS: Hematocrit* 39.3 % (33.0-51.0); Hemoglobin* 12.9 gm/dL (12.0-16.0); Immature Granulocytes Abs Auto 0.01 K/uL (0.00-0.30); Immature Granulocytes Pct Auto 0.1 %; Lymphocytes Absolute Auto 2.94 K/uL (0.90-2.90); Mean Corpuscular HGB Conc 33 gm/dL (32-36); Mean Corpuscular Hemoglobin 30 pg (26-34); Mean Corpuscular Volume 90 fL (80-100); RDW Coefficient of Variation % 12.1 % (11.5-15.5); Red Blood Count* 4.36 m/uL (4.00-5.20); White Blood Count* 9.61 K/uL (4.50-11.00)
[2025-01-03 20:28] LABS: Slide Review Reflex No
[2025-01-03 20:34] LABS: Chloride* 103 mmol/L (96-114)
[2025-01-03 20:35] LABS: Albumin* 4.7 g/dL (3.3-5.0); Potassium* 4.5 mmol/L (3.6-5.1); Sodium* 140 mmol/L (135-149)
[2025-01-03 20:37] LABS: Alanine Aminotransferase* 15 U/L (4-35); Anion Gap 7 mEq/L (7-15); Aspartate Amino Transferase* 24 U/L (12-35); Blood Urea Nitrogen* 20 mg/dL (5-24); Carbon Dioxide* 30 mmol/L (20-32); Creatinine* 0.9 mg/dL (0.5-1.5); Est. Creatinine Clearance* 78.51; Estimated Glomerular Filt Rate 86 ml/min
[2025-01-03 20:38] LABS: Alkaline Phosphatase* 70 U/L (40-150); Bilirubin Total* 0.3 mg/dL (0.1-1.5); Calcium* 9.6 mg/dL (8.4-10.6); Glucose* 108 mg/dL (60-115); Total Protein* 7.4 g/dL (6.0-8.3)
[2025-01-03 20:39] VITALS: BP 120/79; PULSE 61; RESP 18; O2SAT 98
[2025-01-03 20:48] LABS: NT Pro B Type NatriureticPept* < 20 pg/mL (See Note)
[2025-01-03 20:53] LABS: Troponin, Point-of-Care* 0.00 ng/ml (0.01-0.04)
[2025-01-03 20:55] LABS: D Dimer Quantitative* < 0.27 ug/ml (0.00-0.50)
[2025-01-03 21:03] LABS: Erythrocyte SedimentationRate* 7 mm/hr (2-20)
== END 2025-01-03 21:02 | disposition home or self-care (01) ==
PROVIDERS: Emergency Provider Family Medicine; PCP Family Medicine
DX: R42 Dizziness and giddiness (principal)
CPT/HCPCS: 36415; 80053; 83690; 83880; 84484; 85025; 85379; 85651; 93005; 99283; 99284

== ENCOUNTER 2025-01-14 08:17 | Outpatient (CLI) | payer BC, SELFPAY | END 2025-01-14 08:18 | disposition home or self-care (01) | LOC: LKVREF 08:19 | PROVIDERS: PCP Family Medicine; Visit Provider Family Medicine | DX: D35.2 Benign neoplasm of pituitary gland (principal) | CPT/HCPCS: 84146 ==